=== PATIENT | male | born 1960 | race African-American/Black ===

== ENCOUNTER 2019-07-25 11:54 | Inpatient (IN) | payer MEDICARE, SELFPAY ==
[2019-07-25 11:55] VITALS: BP 117/67; PULSE 96; RESP 18; TEMP 36.4; O2SAT 98; BMI 28.3
--- NOTE | 2019-07-25 12:14 | EKG12_ITS ---
Test Reason : ABNL LABS Blood Pressure : / mmHG Vent. Rate : 087 BPM Atrial Rate : 087 BPM P-R Int : 140 ms QRS Dur : 084 ms QT Int : 348 ms P-R-T Axes : 058 064 050 degrees QTc Int : 418 ms Normal sinus rhythm Normal ECG Confirmed by BENEDICT JADE, OLIVER ([id number]), editor city CLAIRE BRANTLEY ([id number]) on 07/31/2019 1:08:14 PM Referred By: ANY Confirmed By:GABRIELLE MCMULLEN MD
--- NOTE | 2019-07-25 12:15 | ED.DCSUM_ITS ---
History of Present Illness Chief Complaint: Abn Labs Detail of Chief Complaint: Renal failure Informant: Patient, - - Staff from [facility] Narrative: Patient presents from [facility] secondary to renal failure. Labs yesterday showed BUN of 53 and a creatinine of 3.4. The last prior labs for this were from several years ago. Staff member with the patient does not know much about his history. She does state that he has been more fatigued recently. She has stated that he has had diarrhea for the last for 5 days. Patient denies pain or nausea. Past Medical History - Allergies and Home Meds Allergies/Adverse Reactions: Allergies No Known Allergies Allergy (Verified 07/25/19 11:55) Primary Care Physician: Bernard Hankins MD [Primary Care Provider] - Past Medical History: - - Pretension, COPD, diabetes, hypothyroid, anxiety, depression, schizophrenia Lives: [facility] Smoking Status: Current every day smoker Review of Systems General: Denies: Chills, Fever ENT: Denies: Sore throat Cardiovascular: Denies: Chest pain Respiratory: Denies: Dyspnea, Cough Gastrointestinal: Reports: Diarrhea. Denies: Abdominal pain, Vomiting Musculoskeletal: Denies: Extremity Pain Neurological: Reports: Weakness - Generalized weakness. Denies: Headache Allergy: Denies: Uticaria Physical Exam Vital Signs/Narrative: Vital Signs Temp Pulse Resp BP Pulse Ox 07/25/19 11:55 97.6 F L 96 18 117/67 98 Inital Vital Signs reviewed: Yes General: Well nourished, Well developed ENT: Moist mucous membranes Cardiovascular: Regular rate, Regular rhythm Respiratory: No distress, CTA bilaterally Abdomen: Soft, Nontender, Hypoactive bowel sounds Skin: Normal color Neurological: Alert, - - Answers questions appropriately Psychological: Normal affect Diagnostic/Tx/Re-eval Laboratory Results 07/25/19 07/25/19 07/25/19 12:31 12:31 12:35 WBC 5.4 RBC 3.75 L Hgb 10.8 L Hct 33.9 L MCV 90.4 MCH 28.8 MCHC 31.9 L RDW Std Deviation 48.6 H RDW Coeff of Saman 14.6 Plt Count 264 MPV 11.0 Immature Gran % (Auto) 0.900 Neut % (Auto) 51.0 Lymph % (Auto) 32.8 [place] % (Auto) 9.3 Eos % (Auto) 5.4 H Baso % (Auto) 0.6 Absolute Neuts (auto) 2.8 Absolute Lymphs (auto) 1.77 Nucleated RBC % 0 Sodium 139 Potassium 4.8 Chloride 109 H Carbon Dioxide 25.0 Anion Gap 5 BUN 61 H Creatinine 3.01 H Estim Creat Clear Calc 26.95 Est GFR (MDRD) Af Amer 27 L Est GFR (MDRD) Non-Af 23 L BUN/Creatinine Ratio 20.3 H Glucose 122 H Calcium 8.5 Urine Color Yellow Urine Clarity Sl. Cloudy Urine pH 5.0 Ur Specific [place] 1.015 Urine Protein 15 H Urine Glucose (UA) Normal Urine Ketones 5 H Urine Occult Blood Negative Urine Nitrite Negative Urine Bilirubin Negative Urine Urobilinogen Normal Ur Leukocyte Esterase Negative Urine RBC 0 SEEN Urine WBC 0 SEEN Ur Squamous Epith Cells 0-5 SEEN Urine Bacteria RARE Hyaline Casts 10-25 SEEN Urine Mucus RARE - EKG Initial EKG Interpretation: Sinus Rhythm - Sinus 87 with no acute ischemia. Normal T waves. - Medical Decision Making Patient is given IV fluids here. Creatinine is slightly improved when compared to yesterday's labs. I spoke with the patient's primary care physician, Dr. Hankins. He does not believe they will be able to get the patient adequately hydrated and to see a digital archivist from the long term and asked the patient be admitted for this evaluation. I have spoken with the hospitalist. ED Disposition - Plan for ED Patient: Disposition: Home or Assisted Living Diagnosis: Acute renal failure Referrals: Bernard Hankins MD [Primary Care Provider] -
[2019-07-25] MEDS: 0.9% Normal Saline 1,000 ML 150 ML IV ×2 (12:28→22:10)
[2019-07-25 12:37] LABS: Absolute Lymphocyte Count 1.77 X10^3/uL (0.83-4.51); Absolute Neutrophil Count 2.8 X10^3/uL (2.0-7.7); Basophil# 0.03 X10^3/uL; Basophil% 0.6 % (0-1); Eosinophil# 0.29 X10^3/uL; Eosinophils% 5.4 % (0-5); Hematocrit 33.9 % (40-54); Hemoglobin 10.8 g/dL (13.0-16.5); Lymphocyte # 1.77 X10^3/ul (4.0); Lymphocyte % 32.8 % (19-41); Mean Corp Hgb Conc 31.9 g/dL (32-36); Mean Corpuscular Hgb 28.8 pg (27.0-32.0); Mean Corpuscular Volume 90.4 fL (80-94); Monocyte% 9.3 % (0-10); NRBC Flagged by Analyzer 0 % (0-5); Neutrophil # 2.76 X10^3/uL (2.7-7.7); Platelet Count 264 K/mm3 (150-450); RBC Distribution Width CV 14.6 % (11.6-14.6); RBC Distribution Width SD 48.6 fl (35.1-43.9); Red Blood Count 3.75 M/mm3 (4.6-6.2); White Blood Count 5.4 K/mm3 (4.4-11.0)
[2019-07-25 12:46] LABS: Red Blood Cells-Urine 0 SEEN /hpf (0-5); White Blood Cells 0 SEEN /hpf (0-5)
[2019-07-25 12:50] LABS: Color, Urine Yellow (Yellow); Glucose, Dipstick Normal (Normal); Ketone-Dipstick 5 mg/dl (Negative); Leukocyte Esterase-Dipstick Negative /ul (Negative); Nitrite-Dipstick Negative (Negative); Occult Blood-Urine Negative /ul (Negative); Protein-Dipstick 15 mg/dl (Negative); Specific Gravity, Urine 1.015 (1.002-1.030); Urine Bilirubin Dipstick Negative (Negative); Urine Clarity Sl. Cloudy (Clear); Urine Urobilinogen Normal (Normal)
[2019-07-25 12:50] LABS: Anion Gap 5 (5-15); BUN 61 mg/dL (7-18); BUN/Creat Ratio 20.3 RATIO (10-20); Calcium,Total 8.5 mg/dL (8.5-10.1); Chloride 109 mmol/L (98-107); Creatinine, Serum 3.01 mg/dL (0.70-1.30); EST Glomerular Filtration Rate 23 mL/min (>60); Est Glom Filt Rate - Afr Amer 27 mL/min (>60); Estimated Creatinine Clearance 26.95 ml/min; Glucose 122 mg/dL (74-106); Potassium 4.8 mmol/L (3.5-5.1); Sodium Level 139 mmol/L (136-145)
[2019-07-25 13:06] LABS: Bacteria RARE /hpf (None Seen); Hyaline Cast 10-25 SEEN /lpf (0-5); Mucous, Urine RARE /hpf (<or=2+); Squamous Epithelial Cells - UA 0-5 SEEN /hpf (0-5)
[2019-07-25 13:54] VITALS: BP 115/66; PULSE 79; RESP 13; O2SAT 97
[2019-07-25 14:18] VITALS: BP 108/64; PULSE 78; RESP 15; O2SAT 97
--- NOTE | 2019-07-25 14:21 | NURSING ---
MED SURG OBS RENAL FAILURE TIERRA
--- NOTE | 2019-07-25 15:08 | US_ITS ---
STUDY: RENAL ULTRASOUND - COMPLETE REASON FOR EXAM: Male, 58 years old. Renal failure TECHNIQUE: Ultrasound evaluation of the kidneys was performed with real-time and static leiva-scale imaging. COMPARISON: None available. FINDINGS: The study is limited by poor sonographic windows. RIGHT KIDNEY: Normal location of the right kidney, which is normal in size. The right kidney measures 11.4 cm. There is a normal cortex of the right kidney. There is no right renal mass or cyst. There are no right renal calculi. There is no right hydronephrosis. DISTAL RIGHT URETER: There is non-visualization of the distal right ureter. There is no demonstrated right ureterovesical junction calculus. There is no demonstrated right ureteral jet. LEFT KIDNEY: Normal location of the left kidney, which is normal in size. The left kidney measures 12.3 cm. There is a normal cortex of the left kidney. There is no left renal mass or cyst. There are no left renal calculi. There is no left hydronephrosis. DISTAL LEFT URETER: There is non-visualization of the distal left ureter. There is no demonstrated left ureterovesical junction calculus. There is no demonstrated left ureteral jet. BLADDER: The urinary bladder is partially distended and appears unremarkable. US/Kidney and Bladder IMPRESSION: Normal ultrasound of the kidneys and urinary bladder. Electronically Signed: Tomasz Grider, at 17:29 EST Tel , Service support ,
--- NOTE | 2019-07-25 15:27 | PCM.HP.STD ---
Problem List (1) Acute renal failure Status: Acute History of Present Illness Date of Admission: 07/25/19 Chief Complaint: Renal failure. The patient is a 58 year old M who presents emergency room from [facility] facility/SNF due to abnormal renal function on labs. Patient is pleasant during assessment however unable to provide any past medical history. He does report recent diarrhea. Denies abdominal pain, nausea or vomiting. Denies other complaints. Per medication list, patient appears to have a past medical history of hypertension, hyperlipidemia, iron deficiency anemia, hypothyroidism, type 2 diabetes mellitus. He is on multiple psychiatric medications for schizophrenia. Past Medical History Allergies No Known Allergies Allergy (Verified 07/25/19 11:55) Home Medications: Ambulatory Orders Medication Instructions Recorded Amlodipine [Norvasc] 2.5 mg PO DAILY 07/25/19 Amlodipine [Norvasc] 5 mg PO DAILY 07/25/19 Aripiprazole [Abilify] 5 mg PO DAILY 07/25/19 Aripiprazole [Abilify] 20 mg PO DAILY 07/25/19 Aspirin E.C. [Ecotrin] 81 mg PO DAILY@0800 07/25/19 Atorvastatin Calcium 80 mg PO DAILY 07/25/19 Cholecalciferol (Vitamin D3) 2,000 unit PO DAILY 07/25/19 [Vitamin D3] Divalproex Sodium [Depakote ER] 2,000 mg PO DAILY 07/25/19 Divalproex Sodium [Depakote] 250 mg PO BID 07/25/19 Ferrous Sulfate 325 mg PO DAILY 07/25/19 Furosemide [Lasix] 40 mg PO DAILY 07/25/19 Haloperidol 5 mg PO Q6H PRN PRN 07/25/19 Haloperidol 5 mg PO TID 07/25/19 Insulin Glargine,Hum.rec.anlog 24 unit SQ QHS 07/25/19 [Lantus] Insulin Lispro [Humalog] 16 unit SQ TID 07/25/19 Levothyroxine [Synthroid] 50 mcg PO DAILY 07/25/19 Linagliptin [Tradjenta] 5 mg PO DAILY 07/25/19 Lisinopril 20 mg PO BID 07/25/19 Loperamide HCl [Imodium A-D] 4 mg PO DAILY PRN PRN 07/25/19 Lorazepam [Ativan] 1 mg PO BID 07/25/19 Lorazepam [Ativan] 1 mg PO Q6H PRN PRN 07/25/19 Medroxyprogesterone Acetate 10 mg PO BID 07/25/19 [Provera] Metformin HCl 1,000 mg PO BID 07/25/19 Metoprolol Tartrate 50 mg PO BID 07/25/19 Ziprasidone HCl [Geodon] 20 mg PO BID 07/25/19 traZODone [Desyrel] 100 mg PO QHS 07/25/19 Surgical History: - - Patient denies surgical history Psychiatric History: Schizophrenia Lives: Intermediate Smoking Status: Current every day smoker Alcohol: None Drugs: None - *Family History Maternal History Items: - - Patient denies known paternal medical history including cardiac history. Paternal History Items: - - Patient denies known paternal medical history including cardiac history. Review of Systems Constitutional: Denies: Chills, Fever, Weight Change HEENT: Denies: Head Aches, Sinus Congestion, Sinus Drainage Cardiovascular: Denies: Chest Pain, Palpitations Respiratory: Denies: Cough, Shortness of breath at rest, Sputum production Gastrointestinal: Denies: Abdominal Pain, Nausea, Vomiting Genitourinary: Denies: Dysuria Musculoskeletal: Denies: Joint Pain, Joint Tenderness Skin: Denies: Rash, Wounds Neurological: Denies: Numbness, Tingling, Focal weakness Psychiatric: Denies: Anxiety, Depression, Homicidal Ideations, Suicidal Ideations Hematologic/ Lymphatic: Denies: Easy Bruising, Easy Bleeding Unable to obtain accurate/complete ROS d/t: ROS difficult to obtain due to underlying mental illness, denies current sx VTE Information - Inpt Only VTE Present on Admission: No VTE Mechan Device Prophylaxis: None VTE Pharm Prophylaxis ordered?: Yes Patient Problems: Active and Suspected Problems Acute renal failure (Acute) - Physical Exam Vitals/I&O's: Vital Signs Temp Pulse Resp BP Pulse Ox 97.6 F L 78 15 108/64 97 07/25/19 11:55 07/25/19 14:18 07/25/19 14:18 07/25/19 14:18 07/25/19 14:18 Oxygen Delivery Method Room Air Weight: 197 lb 8.547 oz Body Mass Index (BMI) 28.3 Finger Stick Blood Glucose 99 General: Alert, Cooperative, No apparent distress HEENT: Atraumatic, PERRLA, EOMI, Normocephalic Oral: Dry Mucosa Neck: Supple, No JVD, Negative Carotid Bruits Lungs: Clear to auscultation, Normal air movement Cardiovascular: Regular rate, Regular Rhythm, Normal S1, Normal S2, No murmurs Abdomen: Bowel Sounds Present, Soft, Non Tender, Non-Distended Extremities: No clubbing, No cyanosis, No edema, Capillary Refill Less than 3 Seconds Skin: No rashes, No breakdown Musculoskeletal: No Tenderness to Palpation of Joints or Extremities Neurological: Cranial nerves II-XII grossly intact, Neuro grossly intact Psych/Mental Status: Normal Affect, Appropriate Laboratory Results 07/25/19 12:31: WBC 5.4, RBC 3.75 L, Hgb 10.8 L, Hct 33.9 L, MCV 90.4, MCH 28.8, MCHC 31.9 L, RDW Std Deviation 48.6 H, RDW Coeff of Saman 14.6, Plt Count 264, MPV 11.0, Immature Gran % (Auto) 0.900, Neut % (Auto) 51.0, Lymph % (Auto) 32.8, Gem % (Auto) 9.3, Eos % (Auto) 5.4 H, Baso % (Auto) 0.6, Absolute Neuts (auto) 2.8, Absolute Lymphs (auto) 1.77, Nucleated RBC % 0 07/25/19 12:31: Sodium 139, Potassium 4.8, Chloride 109 H, Carbon Dioxide 25.0, Anion Gap 5, BUN 61 H, Creatinine 3.01 H, Estim Creat Clear Calc 26.95, Est GFR (MDRD) Af Amer 27 L, Est GFR (MDRD) Non-Af 23 L, BUN/Creatinine Ratio 20.3 H, Glucose 122 H, Calcium 8.5 07/25/19 12:35: Urine Color Yellow, Urine Clarity Sl. Cloudy, Urine pH 5.0, Ur Specific [place] 1.015, Urine Protein 15 H, Urine Glucose (UA) Normal, Urine Ketones 5 H, Urine Occult Blood Negative, Urine Nitrite Negative, Urine Bilirubin Negative, Urine Urobilinogen Normal, Ur Leukocyte Esterase Negative, Urine RBC 0 SEEN, Urine WBC 0 SEEN, Ur Squamous Epith Cells 0-5 SEEN, Urine Bacteria RARE, Hyaline Casts 10-25 SEEN, Urine Mucus RARE Current Medications Amlodipine Besylate (Norvasc) 2.5 mg PO DAILY [facility] Amlodipine Besylate (Norvasc) 5 mg PO DAILY [facility] Aripiprazole (Abilify) 5 mg PO DAILY [facility] Aspirin (Ecotrin) 81 mg PO DAILY@0800 [facility] Atorvastatin Calcium (Lipitor) 80 mg PO DAILY [facility] Dextrose (D50w Syringe) 0 gm IV X1 PRN; Protocol PRN Reason: Hypoglycemia Divalproex Sodium (Depakote) 250 mg PO BID [facility] Divalproex Sodium (Depakote Er) 2,000 mg PO DAILY [facility] Ferrous Sulfate (Ferrous Sulfate) 325 mg PO DAILY [facility] Glucagon () 1 mg IM .X1 PRN PRN Reason: Hypoglycemia Haloperidol (Haldol) 5 mg PO Q6H PRN PRN PRN Reason: AGITATION Haloperidol (Haldol) 5 mg PO TID [facility] Heparin Sodium (Porcine) (Heparin Na) 5,000 unit SC Q12 [facility] Sodium Chloride () 1,000 mls @ 150 mls/hr IV .Q6H40M [facility] Last Admin: 07/25/19 12:28 Dose: 150 mls/hr Documented by: Sodium Chloride () 1,000 mls @ 150 mls/hr IV .Q6H40M [facility] Sodium Chloride () 250 mls @ 15 mls/hr IV .[id number] PRN PRN Reason: Saline Flush Insulin Human Lispro (Humalog Kwikpen (Bkc)) 0 unit SC Q6 [facility]; Protocol Levothyroxine Sodium (Synthroid) 50 mcg PO DAILY [facility] Lorazepam (Ativan) 1 mg PO BID [facility] Lorazepam (Ativan) 1 mg PO Q6H PRN PRN PRN Reason: AGITATION Metoprolol Tartrate (Lopressor (Beta Suzy)) 50 mg PO BID [facility] Non-Formulary Medication (Aripiprazole) 20 mg PO DAILY [facility] Non-Formulary Medication (Medroxyprogesterone Acetate [Provera]) 10 mg PO BID [facility] Sodium Chloride () 10 - 40 ml IV UD PRN PRN Reason: SALINE FLUSH Trazodone HCl (Desyrel) 100 mg PO QHS [facility] Ziprasidone (Geodon) 20 mg PO BID [facility] Assessment/Plan All Active Problems Acute renal failure (Acute) 1. Acute kidney injury due to dehydration from recent diarrhea versus worsening renal disease-unknown baseline. Creatinine from 2013 ., otherwise no lab history. Creatinine admission 3.0. Urinalysis unremarkable. IV fluids, trend BMP. Obtain renal ultrasound. If BMP not improved following hydration, check urine sodium and urine creatinine. If patient has further diarrhea during admission, send stool for C. difficile and enteric bacteriology. 2. Hypertension-stable, continue metoprolol regimen. Hold lisinopril and Lasix. 3. Hyperlipidemia-continue statin regimen. 4. Iron deficiency anemia-stable, trend CBC. 5. Hypothyroidism-continue Synthroid regimen. 6. Type 2 diabetes [id number] ACHS with sliding scale insulin. 7. Schizophrenia-resides at mental health facility/SNF. Resume home medication regimen including Abilify, Depakote, Haldol, Ativan, trazodone, Geodon. DVT prophylaxis- heparin sc This patient was seen by Bonita Cazares NP-Peter under the supervision of Dr. Mon.
[2019-07-25 15:30] VITALS: BMI 20.3
[2019-07-25 15:32] VITALS: BMI 20.4
[2019-07-25 16:00] VITALS: BP 136/70; PULSE 97; RESP 18; TEMP 37; O2SAT 98
[2019-07-25 18:16] LABS: Bedside Glucose 159 mg/dL (70-110)
[2019-07-25] MEDS: Insulin Lispro 100 UNIT/ML INSULN.PEN SC (18:16)
[2019-07-25] MEDS: LORazepam 1 MG Tablet PO ×2 (18:16→21:51)
[2019-07-25] MEDS: Divalproex Sodium 250 MG Tablet PO (18:16)
[2019-07-25] MEDS: Glucerna Shake 120 ML LIQUID PO ×2 (18:16→21:58)
[2019-07-25 21:22] VITALS: BP 141/70; PULSE 95; RESP 16; TEMP 37.1; O2SAT 97
[2019-07-25 21:50] VITALS: PULSE 95
[2019-07-25] MEDS: Ziprasidone HCl 20 MG Capsule PO (21:50)
[2019-07-25] MEDS: Atorvastatin Calcium 80 MG Tablet PO (21:50)
[2019-07-25] MEDS: Metoprolol Tartrate 50 MG Tablet PO (21:50)
[2019-07-25] MEDS: Heparin Injection (Vial) 5,000 UNIT/ML VIAL 5000 UNIT SC (21:51)
[2019-07-25] MEDS: Haloperidol 5 MG Tablet PO (21:51)
[2019-07-25] MEDS: traZODone 100 MG Tablet PO (21:51)
[2019-07-26] VITALS (7 sets, daily range): BP systolic 138–158; BP diastolic 74–90; PULSE 65–89; RESP 15–17; TEMP 36.7–37.1; O2SAT 97–100
[2019-07-26] MEDS: Insulin Lispro 100 UNIT/ML INSULN.PEN SC ×3 (00:13→17:04)
[2019-07-26] MEDS: 0.9% Normal Saline 1,000 ML 150 ML IV ×3 (04:40→20:18)
[2019-07-26 05:57] LABS: Anion Gap 4 (5-15); BUN 49 mg/dL (7-18); BUN/Creat Ratio 27.8 RATIO (10-20); Chloride 114 mmol/L (98-107); Creatinine, Serum 1.76 mg/dL (0.70-1.30); EST Glomerular Filtration Rate 42 mL/min (>60); Est Glom Filt Rate - Afr Amer 51 mL/min (>60); Estimated Creatinine Clearance 40.72 ml/min; Glucose 98 mg/dL (74-106); Potassium 4.6 mmol/L (3.5-5.1); Sodium Level 143 mmol/L (136-145)
[2019-07-26] MEDS: Levothyroxine 50 MCG Tablet PO (06:12)
[2019-07-26] MEDS: Haloperidol 5 MG Tablet PO ×3 (06:12→22:41)
[2019-07-26 06:16] LABS: Bedside Glucose 92 mg/dL (70-110)
[2019-07-26] MEDS: amLODIPine 2.5 MG Tablet 7.5 MG PO (08:35)
[2019-07-26] MEDS: Ziprasidone HCl 20 MG Capsule PO ×2 (08:35→22:41)
[2019-07-26] MEDS: Divalproex Sodium 250 MG Tablet PO ×2 (08:35→17:04)
[2019-07-26] MEDS: Divalproex (ER) 500 MG Tablet 2000 MG PO (08:36)
[2019-07-26] MEDS: ARIPiprazole 10 MG Tablet 20 MG PO (08:36)
[2019-07-26] MEDS: Metoprolol Tartrate 50 MG Tablet PO ×2 (08:37→22:41)
[2019-07-26] MEDS: ARIPiprazole 5 MG Tablet PO (08:37)
[2019-07-26] MEDS: Aspirin E.C. 81 MG Tablet PO (08:37)
[2019-07-26] MEDS: Ferrous Sulfate 325 MG Tablet PO (08:37)
--- NOTE | 2019-07-26 09:35 | PN_ITS ---
Patient Problems: Active and Suspected Problems Acute renal failure (Acute) Subjective: Very pleasant, no issues overnight. He still on his antipsychotic medication for his history of schizophrenia and he still unable to provide any type of history. It appears that he did have diarrhea at his [facility] institution, that seems to have resolved. Vitals/I&O's: Vital Signs Temp Pulse Resp BP Pulse Ox 98.0 F 87 17 138/90 H 97 07/26/19 09:15 07/26/19 09:15 07/26/19 09:15 07/26/19 09:15 07/26/19 09:15 Oxygen Delivery Method Room Air Weight: 142 lb 3.17 oz Body Mass Index (BMI) 20.3 Finger Stick Blood Glucose 99 Intake and Output for Last 24 Hours 07/24/19 07/25/19 07/26/19 23:59 23:59 23:59 Intake Total 1230 / 1530 2285 / 2285 Output Total 550 / 550 Balance 1230 / 1530 1735 / 1735 General: Alert, Cooperative, No apparent distress HEENT: Atraumatic, PERRLA, EOMI, Normocephalic Oral: Moist Mucosa Neck: Supple, No JVD Lungs: Clear to auscultation, Normal air movement, No rhonchi, No wheeze, No rales, Diminished Cardiovascular: Regular rate, Regular Rhythm, Normal S1, Normal S2, No murmurs Abdomen: Soft, Non Tender, Non-Distended, No Hepato-splenomegaly Extremities: No edema, Capillary Refill Less than 3 Seconds Skin: No rashes, No breakdown Neurological: Neuro grossly intact, Sensory exam intact to light touch and pain Psych/Mental Status: Normal Affect, Appropriate Laboratory Results 07/25/19 12:31: WBC 5.4, RBC 3.75 L, Hgb 10.8 L, Hct 33.9 L, MCV 90.4, MCH 28.8, MCHC 31.9 L, RDW Std Deviation 48.6 H, RDW Coeff of Saman 14.6, Plt Count 264, MPV 11.0, Immature Gran % (Auto) 0.900, Neut % (Auto) 51.0, Lymph % (Auto) 32.8, [place] % (Auto) 9.3, Eos % (Auto) 5.4 H, Baso % (Auto) 0.6, Absolute Neuts (auto) 2.8, Absolute Lymphs (auto) 1.77, Nucleated RBC % 0 07/25/19 12:31: Sodium 139, Potassium 4.8, Chloride 109 H, Carbon Dioxide 25.0, Anion Gap 5, BUN 61 H, Creatinine 3.01 H, Estim Creat Clear Calc 26.95, Est GFR (MDRD) Af Amer 27 L, Est GFR (MDRD) Non-Af 23 L, BUN/Creatinine Ratio 20.3 H, Glucose 122 H, Calcium 8.5 07/25/19 12:35: Urine Color Yellow, Urine Clarity Sl. Cloudy, Urine pH 5.0, Ur Specific [place] 1.015, Urine Protein 15 H, Urine Glucose (UA) Normal, Urine Ketones 5 H, Urine Occult Blood Negative, Urine Nitrite Negative, Urine Bilirubin Negative, Urine Urobilinogen Normal, Ur Leukocyte Esterase Negative, Urine RBC 0 SEEN, Urine WBC 0 SEEN, Ur Squamous Epith Cells 0-5 SEEN, Urine Bacteria RARE, Hyaline Casts 10-25 SEEN, Urine Mucus RARE 07/25/19 18:11: POC Glucose 159 H 07/26/19 05:20: Sodium 143, Potassium 4.6, Chloride 114 H, Carbon Dioxide 25.0, Anion Gap 4 L, BUN 49 H, Creatinine 1.76 H, Estim Creat Clear Calc 40.72, Est GFR (MDRD) Af Amer 51 L, Est GFR (MDRD) Non-Af 42 L, BUN/Creatinine Ratio 27.8 H , Glucose 98, Calcium 8.0 L 07/26/19 06:05: POC Glucose 92 Current Medications Amlodipine Besylate (Norvasc) 7.5 mg PO DAILY [facility] Last Admin: 07/26/19 08:35 Dose: 7.5 mg Documented by: Aripiprazole (Abilify) 5 mg PO DAILY [facility] Last Admin: 07/26/19 08:37 Dose: 5 mg Documented by: Aripiprazole (Abilify) 20 mg PO DAILY [facility] Last Admin: 07/26/19 08:36 Dose: 20 mg Documented by: Aspirin (Ecotrin) 81 mg PO DAILY@0800 [facility] Last Admin: 07/26/19 08:37 Dose: 81 mg Documented by: Atorvastatin Calcium (Lipitor) 80 mg PO QHS [facility] Last Admin: 07/25/19 21:50 Dose: 80 mg Documented by: Dextrose (D50w Syringe) 0 gm IV X1 PRN; Protocol PRN Reason: Hypoglycemia [facility] Admin: 07/26/19 08:35 Dose: 250 mg Documented by: Divalproex Sodium (Depakote Er) [facility] Last Admin: 07/26/19 08:36 Dose: 2,000 mg Documented by: Ferrous Sulfate (Ferrous Sulfate) [facility] Last Admin: 07/26/19 08:37 Dose: 325 mg Documented by: Glucagon () 1 mg IM .X1 PRN PRN Reason: Hypoglycemia Haloperidol (Haldol) 5 mg PO Q6H PRN PRN PRN Reason: AGITATION Haloperidol (Haldol) 5 mg PO TID [facility] Last Admin: 07/26/19 06:12 Dose: 5 mg Documented by: Heparin Sodium (Porcine) (Heparin Na) 5,000 unit SC Q12 [facility] Last Admin: 07/25/19 21:51 Dose: 5,000 unit Documented by: Sodium Chloride () 1,000 mls @ 150 mls/hr IV .Q6H40M [facility] Last Admin: 07/26/19 08:38 Dose: Not Given Documented by: Sodium Chloride () 250 mls @ 15 mls/hr IV .[id number] PRN PRN Reason: Saline Flush Insulin Human Lispro (Humalog Kwikpen (Bkc)) 0 unit SC Q6 [facility]; Protocol Last Admin: 07/26/19 06:07 Dose: Not Given Documented by: Levothyroxine Sodium (Synthroid) 50 mcg PO DAILY@0600 [facility] Last Admin: 07/26/19 06:12 Dose: 50 mcg Documented by: Lorazepam (Ativan) 1 mg PO BID [facility] Last Admin: 07/25/19 21:51 Dose: 1 mg Documented by: Lorazepam (Ativan) 1 mg PO Q6H PRN PRN PRN Reason: AGITATION Last Admin: 07/25/19 18:16 Dose: 1 mg Documented by: Metoprolol Tartrate (Lopressor (Beta Suzy)) 50 mg PO BID [facility] Last Admin: 07/26/19 08:37 Dose: 50 mg Documented by: Nutritional Formula (Lactose Free) (Glucerna Shake) 120 ml PO 4X/DAY [facility] Last Admin: 07/25/19 21:58 Dose: 120 ml Documented by: Sodium Chloride () 10 - 40 ml IV UD PRN PRN Reason: SALINE FLUSH Trazodone HCl (Desyrel) 100 mg PO QHS [facility] Last Admin: 07/25/19 21:51 Dose: 100 mg Documented by: Ziprasidone (Geodon) 20 mg PO BID [facility] Last Admin: 07/26/19 08:35 Dose: 20 mg Documented by: STROKE Vital Signs/Narrative: Vital Signs Temp Pulse Resp BP Pulse Ox 07/26/19 09:15 98.0 F 87 17 138/90 H 97 07/26/19 08:37 89 158/81 H Medical Necessity - Tobacco Use Smoking Status: Current every day smoker Assessment/Plan All Active Problems Acute renal failure (Acute) 1. Acute renal failure -Secondary to dehydration from diarrhea in combination with lisinopril and Lasix -First with his baseline creatinine is, however on admission his creatinine was 3.01, and now it is 1.76 -He with IV fluid hydration for 1 more day and reevaluate tomorrow, if his creatinine is closer to 1 can plan for discharge tomorrow 2. HTN/HLD -Blood pressures are stable -We will continue to hold his lisinopril and Lasix, but can continue with his metoprolol -Continue with statin and aspirin 3. Hypothyroidism -Stable -Continue with Synthroid 4. DM 2 -Accu-Cheks AC at bedtime and continue with sliding scale insulin -His intake improves, can restart his home insulin regimen of Lantus and conrad ltime insulin 5. Iron deficiency anemia -We will recheck a CBC in the morning, his hemoglobin on admission was 10.8 -I anticipate that it will be lower given his fluid resuscitation but he does not have any signs of bleeding currently -Continue with his iron replacement 6. Schizophrenia -Appears to be stable at the moment -Tinea with his home medications DVT: Heparin Code Visit Inpatient E&M: 32277 Subs Hosp L2
--- NOTE | 2019-07-26 10:08 | CASEMGMT ---
Social Work Note Pt is listed as being from [facility]. Documents from [facility] states pt's guardian is pt's brother Umang Chung. IMAN placed a call to Umang. Umang confirms that pt is from [facility] and the plan is for pt to return at discharge. IMAN informed Umang that this worker will update him when pt gets discharged. Umang states understanding. IMAN placed a call to [facility]. Pt is custodial resident and is able to return once medically cleared. IMAN faxed updated clinicals to [facility]. Plan: Return to [facility] when medically cleared Harini Guardado TELEVISION EQUIPMENT OPERATOR, AUDITOR
[2019-07-26] MEDS: LORazepam 1 MG Tablet PO ×2 (10:36→22:40)
[2019-07-26] MEDS: Glucerna Shake 120 ML LIQUID PO ×4 (10:36→22:44)
[2019-07-26] MEDS: Heparin Injection (Vial) 5,000 UNIT/ML VIAL 5000 UNIT SC ×2 (10:37→22:41)
[2019-07-26 13:15] LABS: Bedside Glucose 291 mg/dL (70-110)
[2019-07-26] MEDS: Atorvastatin Calcium 80 MG Tablet PO (22:40)
[2019-07-26] MEDS: traZODone 100 MG Tablet PO (22:41)
[2019-07-27 00:26] LABS: Bedside Glucose 216 mg/dL (70-110)
[2019-07-27] MEDS: Insulin Lispro 100 UNIT/ML INSULN.PEN SC (00:40)
[2019-07-27 00:46] LABS: Bedside Glucose 246 mg/dL (70-110)
[2019-07-27] MEDS: 0.9% Normal Saline 1,000 ML 150 ML IV (02:54)
[2019-07-27 03:25] VITALS: BP 159/89; PULSE 72; RESP 16; TEMP 36.8; O2SAT 98
[2019-07-27] MEDS: Haloperidol 5 MG Tablet PO (06:13)
[2019-07-27] MEDS: Levothyroxine 50 MCG Tablet PO (06:13)
[2019-07-27 06:24] LABS: Anion Gap 5 (5-15); BUN 27 mg/dL (7-18); BUN/Creat Ratio 21.8 RATIO (10-20); Calcium,Total 7.8 mg/dL (8.5-10.1); Chloride 114 mmol/L (98-107); Creatinine, Serum 1.24 mg/dL (0.70-1.30); EST Glomerular Filtration Rate 63 mL/min (>60); Est Glom Filt Rate - Afr Amer 76 mL/min (>60); Glucose 150 mg/dL (74-106); Potassium 4.7 mmol/L (3.5-5.1); Sodium Level 143 mmol/L (136-145)
[2019-07-27 07:00] LABS: Bedside Glucose 144 mg/dL (70-110)
[2019-07-27 07:10] LABS: Bedside Glucose 212 mg/dL (70-110)
[2019-07-27 07:10] LABS: Bedside Glucose 208 mg/dL (70-110)
[2019-07-27 07:15] LABS: Bedside Glucose 443 mg/dL (70-110)
[2019-07-27 07:15] LABS: Bedside Glucose 496 mg/dL (70-110)
[2019-07-27] MEDS: Divalproex Sodium 250 MG Tablet PO (08:35)
[2019-07-27] MEDS: Divalproex (ER) 500 MG Tablet 2000 MG PO (08:35)
[2019-07-27] MEDS: Ferrous Sulfate 325 MG Tablet PO (08:36)
[2019-07-27] MEDS: Aspirin E.C. 81 MG Tablet PO (08:36)
[2019-07-27] MEDS: ARIPiprazole 5 MG Tablet PO (08:36)
[2019-07-27] MEDS: ARIPiprazole 10 MG Tablet 20 MG PO (08:36)
[2019-07-27] MEDS: Ziprasidone HCl 20 MG Capsule PO (08:37)
--- NOTE | 2019-07-27 09:21 | CASEMGMT ---
Social Work Note [place] [facility] [place] JENNIFER Cottrell. Ronit states pt does NOT have to be sitter free for 24 hours and can return when medically cleared. [place] [facility] Harini Guardado SIEVE GRADER TENDER, MACHINE INSTALLER
--- NOTE | 2019-07-27 09:28 | PCM.TXEXTCAR ---
- Diet 07/25/19 15:09 Diet: Calorie Controlled Food consistency:: Soft Liquid Consistency:: Regular/Thin Diet Comments: staff supervision, NO STRAWS, small bites/sips, slow rate of intake How many daily calories?: 1800 calorie - Routine Orders/Code Status Routine Lab Work: [facility] - 07/30/19 - Allergies/Procedures Done in Hospital Allergies/Adverse Reactions: Allergies No Known Allergies Allergy (Verified 07/25/19 11:55) - Type of Care/Length of Stay Estimated LOS: More Than 30 Days Type of Care Needed: Intermediate Rehab Potential: Fair Prognosis: Fair - Additional Orders/Day of Discharge Day of Discharge: 07/27/19 - Dietary and Speech Recommendations Dietitian Recommendations/Changes: Recommend change diet to 2000 Calorie Controlled Diet. Continue Glucerna with Medpass. - Follow Up Care Primary Care Physician: Bernard Hankins MD [Primary Care Provider] - Please follow up with your Primary Care Physician in: 3-5 days
[2019-07-27 09:34] VITALS: BP 170/93; PULSE 90; RESP 18; TEMP 36.9; O2SAT 100
[2019-07-27] MEDS: Glucerna Shake 120 ML LIQUID PO (09:40)
[2019-07-27 09:41] VITALS: PULSE 90
[2019-07-27] MEDS: Metoprolol Tartrate 50 MG Tablet PO (09:41)
[2019-07-27] MEDS: LORazepam 1 MG Tablet PO (09:41)
[2019-07-27] MEDS: amLODIPine 2.5 MG Tablet 7.5 MG PO (09:41)
[2019-07-27] MEDS: Heparin Injection (Vial) 5,000 UNIT/ML VIAL 5000 UNIT SC (09:42)
--- NOTE | 2019-07-27 10:23 | CASEMGMT ---
Social Work Note Pt is discharging back to [facility] today. IMAN faxed completed discharge paperwork to [facility] including transfer to extended care facility, signed medication list and any scripts. Original in SNF folder and copy on pt's chart. IMAN called [facility] and arranged transportation via cot for 11:00am. Transportation form complete and placed on SNF folder and copy on pt's chart. IMAN updated RN on transportation time. IMAN placed a call to [facility] and spoke with RN Ronit and updated her on discharge and transportation time. IMAN placed a call to pt's guardian and brother Umang and updated him that pt will be discharged today and transportation time. Plan: Return to [facility] today with [facility] transporting via cot at 11:00am Harini Guardado MSW, HOG STICKER
--- NOTE | 2019-07-27 10:24 | DS.PCM_ITS ---
Discharge Date and Diagnosis - Problem List Patient Problems: Active and Suspected Problems Acute renal failure (Acute) Date of Admission: 07/25/19 Date of Discharge: 07/27/19 - Primary Discharge Diagnosis Active and Suspected Problems Acute renal failure (Acute) Hospital Course and Treatment Imaging Results: Renal US: IMPRESSION: Normal ultrasound of the kidneys and urinary bladder. Consults: None Operations: None Procedures: None Summary of Care Provided: Per HPI: The patient is a 58 year old M who presents emergency room from [facility] facility/SNF due to abnormal renal function on labs. Patient is pleasant during assessment however unable to provide any past medical history. He does report recent diarrhea. Denies abdominal pain, nausea or vomiting. Denies other complaints. Per medication list, patient appears to have a past medical history of hypertension, hyperlipidemia, iron deficiency anemia, hypothyroidism, type 2 diabetes mellitus. He is on multiple psychiatric medications for schizophrenia. Hospital Course: 1. Acute renal failure secondary to volume loss from [id number]-old male with schizophrenia who resides in a [facility] facility presented after he was found to have abnormal renal function in the setting of several days of diarrhea. Initially on presentation his creatinine was 3.01, and now he is 1.24 aggressive IV fluid hydration. I do recommend that he have a repeat BMP drawn on Tuesday and to not restart his Lasix or his lisinopril until his creatinine has been rechecked. Renal ultrasound was unremarkable and given the fact that his creatinine has improved with IV fluids he is okay for discharge back to the [facility] facility today. 2. HTN/HLD-blood pressures have been a little bit on the high side today prior to discharge. Likely secondary to holding both his lisinopril and Lasix, however given his renal failure recommended they continue to hold this until they have another BMP in a few days to evaluate his renal function. If his renal function is okay there should not be an issue with him restarting his Lasix and his lisinopril especially since he has not had diarrhea since he is been here 3. His other medical diagnoses were evaluated and his home medications were continued where appropriate Patient Problems: Active and Suspected Problems Acute renal failure (Acute) - Physical Exam Vitals/I&O's: Vital Signs Temp Pulse Resp BP Pulse Ox 98.4 F 90 18 170/93 H 100 07/27/19 09:34 07/27/19 09:41 07/27/19 09:34 07/27/19 09:34 07/27/19 09:34 Oxygen Delivery Method Room Air Weight: 142 lb 3.17 oz Body Mass Index (BMI) 20.3 Finger Stick Blood Glucose 99 Intake and Output for Last 24 Hours 07/25/19 07/26/19 07/27/19 23:59 23:59 23:59 Intake Total 1230 / 1530 5547.5 / 5547.5 2690 / 2690 Output Total 1550 / 1550 1700 / 1700 Balance 1230 / 1530 3997.5 / 3997.5 990 / 990 General: Alert, Cooperative, No apparent distress HEENT: Atraumatic, PERRLA, EOMI, Normocephalic Oral: Moist Mucosa Neck: Supple, No JVD Lungs: Clear to auscultation, Normal air movement, No rhonchi, No wheeze, No rales, Diminished Cardiovascular: Regular rate, Regular Rhythm, Normal S1, Normal S2, No murmurs Abdomen: Soft, Non Tender, Non-Distended, No Hepato-splenomegaly Extremities: No edema, Capillary Refill Less than 3 Seconds Skin: No rashes, No breakdown Neurological: Neuro grossly intact, Sensory exam intact to light touch and pain Psych/Mental Status: Normal Affect, Appropriate Laboratory Results 07/26/19 00:09: POC Glucose 212 H 07/26/19 00:11: POC Glucose 208 H 07/26/19 11:31: POC Glucose 291 H 07/26/19 16:52: POC Glucose 496 H* 07/26/19 16:54: POC Glucose 443 H 07/26/19 22:36: POC Glucose 216 H 07/27/19 00:39: POC Glucose 246 H 07/27/19 05:35: Sodium 143, Potassium 4.7, Chloride 114 H, Carbon Dioxide 24.0, Anion Gap 5, BUN 27 H, Creatinine 1.24, Estim Creat Clear Calc 57.80, Est GFR (MDRD) Af Amer 76, Est GFR (MDRD) Non-Af 63, BUN/Creatinine Ratio 21.8 H, Glucose 150 H, Calcium 7.8 L 07/27/19 06:10: POC Glucose 144 H Current Medications Amlodipine Besylate (Norvasc) 7.5 mg PO DAILY [facility] Last Admin: 07/27/19 09:41 Dose: 7.5 mg Documented by: Aripiprazole (Abilify) 5 mg PO DAILY [facility] Last Admin: 07/27/19 08:36 Dose: 5 mg Documented by: Aripiprazole (Abilify) 20 mg PO DAILY [facility] Last Admin: 07/27/19 08:36 Dose: 20 mg Documented by: Aspirin (Ecotrin) 81 mg PO DAILY@0800 [facility] Last Admin: 07/27/19 08:36 Dose: 81 mg Documented by: Atorvastatin Calcium (Lipitor) 80 mg PO QHS [facility] Last Admin: 07/26/19 22:40 Dose: 80 mg Documented by: Dextrose (D50w Syringe) 0 gm IV X1 PRN; Protocol PRN Reason: Hypoglycemia [facility]: 07/27/19 08:35 Dose: 250 mg Documented by: Divalproex Sodium (Depakote Er) [facility] Admin: 07/27/19 08:35 Dose: 2,000 mg Documented by: Ferrous Sulfate (Ferrous Sulfate) [facility] Last Admin: 07/27/19 08:36 Dose: 325 mg Documented by: Glucagon () 1 mg IM .X1 PRN PRN Reason: Hypoglycemia Haloperidol (Haldol) 5 mg PO Q6H PRN PRN PRN Reason: AGITATION Haloperidol (Haldol) 5 mg PO TID [facility] Last Admin: 07/27/19 06:13 Dose: 5 mg Documented by: Heparin Sodium (Porcine) (Heparin Na) 5,000 unit SC Q12 [facility] Last Admin: 07/27/19 09:42 Dose: 5,000 unit Documented by: Sodium Chloride () 1,000 mls @ 150 mls/hr IV .Q6H40M [facility] Last Infusion: 07/27/19 09:42 Dose: Infused Documented by: Sodium Chloride () 250 mls @ 15 mls/hr IV .[id number] PRN PRN Reason: Saline Flush Insulin Human Lispro (Humalog Kwikpen (Bkc)) 0 unit SC Q6 [facility]; Protocol Last Admin: 07/27/19 06:11 Dose: Not Given Documented by: Levothyroxine Sodium (Synthroid) 50 mcg PO DAILY@0600 [facility] Last Admin: 07/27/19 06:13 Dose: 50 mcg Documented by: Lorazepam (Ativan) 1 mg PO BID [facility] Last Admin: 07/27/19 09:41 Dose: 1 mg Documented by: Lorazepam (Ativan) 1 mg PO Q6H PRN PRN PRN Reason: AGITATION Last Admin: 07/25/19 18:16 Dose: 1 mg Documented by: Metoprolol Tartrate (Lopressor (Beta Suzy)) 50 mg PO BID [facility] Last Admin: 07/27/19 09:41 Dose: 50 mg Documented by: Nicotine (Nicoderm Cq (Pbkc)) 14 mg TRANSDERM. DAILY [facility] Last Admin: 07/27/19 09:41 Dose: 14 mg Documented by: Nutritional Formula (Lactose Free) (Glucerna Shake) 120 ml PO 4X/DAY [facility] Last Admin: 07/27/19 09:40 Dose: 120 ml Documented by: Sodium Chloride () 10 - 40 ml IV UD PRN PRN Reason: SALINE FLUSH Trazodone HCl (Desyrel) 100 mg PO QHS [facility] Last Admin: 07/26/19 22:41 Dose: 100 mg Documented by: Ziprasidone (Geodon) 20 mg PO BID [facility] Last Admin: 07/27/19 08:37 Dose: 20 mg Documented by: Home Medications: Medications to take at Discharge Amlodipine [Norvasc] 2.5 mg PO DAILY 07/25/19 Amlodipine [Norvasc] 5 mg PO DAILY 07/25/19 Aripiprazole [Abilify] 5 mg PO DAILY 07/25/19 Aripiprazole [Abilify] 20 mg PO DAILY 07/25/19 Aspirin E.C. [Ecotrin] 81 mg PO DAILY@0800 07/25/19 Atorvastatin Calcium 80 mg PO DAILY 07/25/19 Cholecalciferol (Vitamin D3) [Vitamin D3] 2,000 unit PO DAILY 07/25/19 Divalproex Sodium [Depakote ER] 2,000 mg PO DAILY 07/25/19 Divalproex Sodium [Depakote] 250 mg PO BID 07/25/19 Ferrous Sulfate 325 mg PO DAILY 07/25/19 Haloperidol 5 mg PO Q6H PRN PRN 07/25/19 Haloperidol 5 mg PO TID 07/25/19 Insulin Glargine,Hum.rec.anlog [Lantus] 24 unit SQ QHS 07/25/19 Insulin Lispro [Humalog] 16 unit SQ TID 07/25/19 Levothyroxine [Synthroid] 50 mcg PO DAILY 07/25/19 Linagliptin [Tradjenta] 5 mg PO DAILY 07/25/19 Loperamide HCl [Imodium A-D] 4 mg PO DAILY PRN PRN 07/25/19 Lorazepam [Ativan] 1 mg PO BID 07/25/19 Lorazepam [Ativan] 1 mg PO Q6H PRN PRN 07/25/19 Medroxyprogesterone Acetate [Provera] 10 mg PO BID 07/25/19 Metformin HCl 1,000 mg PO BID 07/25/19 Metoprolol Tartrate 50 mg PO BID 07/25/19 Ziprasidone HCl [Geodon] 20 mg PO BID 07/25/19 traZODone [Desyrel] 100 mg PO QHS 07/25/19 Furosemide [Lasix] 40 mg PO DAILY #0 07/27/19 Lisinopril 20 mg PO BID #0 07/27/19 Primary Care Physician: Bernard Hankins MD [Primary Care Provider] - Please follow up with your Primary Care Physician in: 3-5 days Disposition: Psych Hospital or Unit Minutes spent on discharge:: 35 Patient Condition:: Stable Medical Necessity - Tobacco Use Smoking Status: Current every day smoker Meaningful Use Info Meaningful Use Diagnoses (Choose all that apply): None applicable Code Visit Inpatient E&M: 49061 Disch Hosp
== END 2019-07-27 11:05 | disposition skilled nursing facility (03) | DRG 684 ==
LOC: ED 14:24 → MS3 19:00
PROVIDERS: Admitting Provider Internal Medicine; Emergency Provider Emergency Medicine; Family Provider Family Medicine; PCP Family Medicine; Visit Provider Family Medicine
DX: N17.9 Acute kidney failure, unspecified (principal); E86.0 Dehydration; R19.7 Diarrhea, unspecified; J44.9 Chronic obstructive pulmonary disease, unspecified; E11.9 Type 2 diabetes mellitus without complications; I10 Essential (primary) hypertension; E78.5 Hyperlipidemia, unspecified; E03.9 Hypothyroidism, unspecified; D50.9 Iron deficiency anemia, unspecified; F20.9 Schizophrenia, unspecified; F32.9 Major depressive disorder, single episode, unspecified; F41.9 Anxiety disorder, unspecified; F17.200 Nicotine dependence, unspecified, uncomplicated; Z79.84 Long term (current) use of oral hypoglycemic drugs; Z79.82 Long term (current) use of aspirin; Z79.4 Long term (current) use of insulin; Z79.899 Other long term (current) drug therapy
CPT/HCPCS: 36415; 76770; 80048; 81001; 82962; 85025; 92507; 92610; 93005; 97162; 97166; 99285; J7030

== ENCOUNTER → 2019-08-20 16:19 | Outpatient (CLI) | payer MEDICARE, SELFPAY ==
[2019-07-25 15:30] VITALS: BMI 20.3
[2019-08-20 17:14] LABS: Anion Gap 6 (5-15); BUN 35 mg/dL (7-18); BUN/Creat Ratio 17.1 RATIO (10-20); Calcium,Total 8.6 mg/dL (8.5-10.1); Chloride 105 mmol/L (98-107); Creatinine, Serum 2.05 mg/dL (0.70-1.30); EST Glomerular Filtration Rate 35 mL/min (>60); Est Glom Filt Rate - Afr Amer 43 mL/min (>60); Glucose 177 mg/dL (74-106); Potassium 4.9 mmol/L (3.5-5.1); Sodium Level 138 mmol/L (136-145)
[2019-08-20 17:15] LABS: Valproic Acid (Depakene) Level 65 ug/mL (50-100)
[2019-08-20 17:22] LABS: Absolute Lymphocyte Count 1.45 X10^3/uL (0.83-4.51); Absolute Neutrophil Count 2.2 X10^3/uL (2.0-7.7); Basophil# 0.02 X10^3/uL; Basophil% 0.5 % (0-1); Eosinophil# 0.15 X10^3/uL; Eosinophils% 3.5 % (0-5); Hematocrit 31.8 % (40-54); Hemoglobin 9.9 g/dL (13.0-16.5); Lymphocyte # 1.45 X10^3/ul (4.0); Mean Corp Hgb Conc 31.1 g/dL (32-36); Mean Corpuscular Hgb 29.4 pg (27.0-32.0); Mean Corpuscular Volume 94.4 fL (80-94); Mean Platelet Vol. 11.4 fl (6.2-12.0); Monocyte# 0.41 X10^3/uL; Monocyte% 9.6 % (0-10); NRBC Flagged by Analyzer 0 % (0-5); Neutrophil # 2.22 X10^3/uL (2.7-7.7); Neutrophil % 51.9 % (47-70); Platelet Count 338 K/mm3 (150-450); RBC Distribution Width CV 15.9 % (11.6-14.6); RBC Distribution Width SD 55.5 fl (35.1-43.9); Red Blood Count 3.37 M/mm3 (4.6-6.2); White Blood Count 4.3 K/mm3 (4.4-11.0)
== END ==
PROVIDERS: Family Provider Family Medicine; PCP Family Medicine; Referring Provider Family Medicine; Visit Provider Family Medicine
DX: Z00.01 Encounter for general adult medical examination with abnormal findings (principal); Z12.5 Encounter for screening for malignant neoplasm of prostate; E03.9 Hypothyroidism, unspecified; N17.9 Acute kidney failure, unspecified; Z79.899 Other long term (current) drug therapy
CPT/HCPCS: 80048; 80164; 82140; 85025

== ENCOUNTER 2019-09-09 23:17 | Emergency (ER) | payer MEDICARE, SELFPAY ==
[2019-09-09 23:19] VITALS: BP 134/69; PULSE 83; RESP 18; TEMP 37.1; O2SAT 98; BMI 28.0
[2019-09-09 23:31] LABS: Bedside Glucose 444 mg/dL (70-110)
[2019-09-10 00:18] VITALS: BP 182/117
[2019-09-10 01:01] LABS: Bedside Glucose 358 mg/dL (70-110)
[2019-09-10 01:03] VITALS: BP 182/117
--- NOTE | 2019-09-10 01:53 | ED.DCSUM_ITS ---
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 He is resting in the bed. Is reported his blood sugar was high and he was lethargic. Sent in for further evaluation for blood sugar greater than 500. The patient is on medications for diabetes. He has a history of schizophrenia. When asked if he has any complaints he opens his eyes and says no and falls back asleep. Patient's had no nausea or vom iting. - Past Medical History (1) Acute renal failure Status: Acute Past Medical History - Allergies and Home Meds Allergies/Adverse Reactions: Allergies No Known Allergies Allergy (Verified 09/09/19 23:29) Primary Care Physician: Bernard Hankins MD [Primary Care Provider] - Prior records reviewed: Yes Past Medical History: - - See problem list, schizophrenia Surgical History: - - Patient denies surgical history Lives: [facility] Smoking Status: Former smoker Alcohol: None Drugs: None - Family History Maternal Family History: Reports: - - Patient denies known paternal medical history including cardiac history. Paternal Family History: Reports: - - Patient denies known paternal medical history including cardiac history. Review of Systems General: Denies: Chills, Fever, Sweats Eyes: Denies: Visual changes - bilaterally, Diplopia ENT: Denies: Rhinorrhea, Sore throat Cardiovascular: Denies: Chest pain, Palpitations Respiratory: Denies: Dyspnea, Cough, Dyspnea on exertion Gastrointestinal: Denies: Abdominal pain, Nausea, Vomiting, Diarrhea, Melena, Hematochezia Genitourinary: Denies: Dysuria, Hematuria, Frequency Musculoskeletal: Denies: Back pain, Extremity Pain Skin: Denies: Rash, Wounds Neurological: Denies: Headache, Weakness, Numbness Physical Exam Vital Signs/Narrative: Vital Signs Temp Pulse Resp BP Pulse Ox 09/10/19 01:03 182/117 H 09/10/19 00:18 182/117 H 09/09/19 23:19 98.8 F 83 18 134/69 H 98 General: Well nourished, Well developed, No Acute Distress, - - Resting comfortably and opens his eyes when I speak to him. Head: Normocephalic, Atraumatic Eyes: Perrl, EOMI ENT: Moist mucous membranes, No rhinorrhea Neck: Supple, Nontender Cardiovascular: Regular rate, Regular rhythm, No murmurs Respiratory: No distress, CTA bilaterally, Chest nontender Abdomen: Soft, Nontender, Nondistended, Normal bowel sounds Back: Nontender, Normal Inspection Extremities: Nontender, No edema Skin: Normal color, No rash Neurological: Alert, Oriented x3, Cranial nerves II-XII grossly intact, Normal Strength, Normal Sensation Psychological: Normal affect, Normal Mood Diagnostic/Tx/Re-eval - Medical Decision Making Given IV fluids. Given a dose of NovoLog. Blood sugar has declined. Lab work obtained. Blood work shows a repeat blood sugar after treatment of 235. No evidence of HHS or DKA. Patient resting comfortably after treatment. Will be discharged ED Disposition - Plan for ED Patient: Disposition: Home or Assisted Living Diagnosis: Diabetes mellitus with hyperglycemia Instructions: ED Diabetic Hyperglycemia Referrals: Bernard Hankins MD [Primary Care Provider] -
[2019-09-10] MEDS: 0.9% Normal Saline 1,000 ML 1000 ML IV (02:00)
[2019-09-10 02:01] LABS: Absolute Lymphocyte Count 1.63 X10^3/uL (0.83-4.51); Absolute Neutrophil Count 3.9 X10^3/uL (2.0-7.7); Basophil# 0.04 X10^3/uL; Basophil% 0.6 % (0-1); Eosinophil# 0.16 X10^3/uL; Eosinophils% 2.5 % (0-5); Hematocrit 31.1 % (40-54); Hemoglobin 10.1 g/dL (13.0-16.5); Lymphocyte # 1.63 X10^3/ul (4.0); Lymphocyte % 25.8 % (19-41); Mean Corp Hgb Conc 32.5 g/dL (32-36); Mean Corpuscular Hgb 29.9 pg (27.0-32.0); Monocyte# 0.56 X10^3/uL; Monocyte% 8.9 % (0-10); NRBC Flagged by Analyzer 0 % (0-5); Neutrophil % 61.7 % (47-70); Platelet Count 287 K/mm3 (150-450); RBC Distribution Width CV 15.6 % (11.6-14.6); Red Blood Count 3.38 M/mm3 (4.6-6.2); White Blood Count 6.3 K/mm3 (4.4-11.0)
[2019-09-10] MEDS: Insulin Lispro 100 UNIT/ML INSULN.PEN 20 UNIT SC (02:22)
[2019-09-10 02:40] LABS: Anion Gap 7 (5-15); BUN 41 mg/dL (7-18); BUN/Creat Ratio 25.3 RATIO (10-20); Calcium,Total 8.2 mg/dL (8.5-10.1); Chloride 107 mmol/L (98-107); Creatinine, Serum 1.62 mg/dL (0.70-1.30); EST Glomerular Filtration Rate 46 mL/min (>60); Est Glom Filt Rate - Afr Amer 56 mL/min (>60); Estimated Creatinine Clearance 52.56 ml/min; Glucose 299 mg/dL (74-106); Potassium 4.5 mmol/L (3.5-5.1); Sodium Level 138 mmol/L (136-145)
[2019-09-10 03:16] LABS: Bedside Glucose 235 mg/dL (70-110)
[2019-09-10 04:06] VITALS: PULSE 80; RESP 16
== END 2019-09-10 04:31 | disposition skilled nursing facility (03) ==
PROVIDERS: Emergency Provider Emergency Medicine; Family Provider Family Medicine; PCP Family Medicine
DX: E11.65 Type 2 diabetes mellitus with hyperglycemia (principal); N17.9 Acute kidney failure, unspecified; F20.9 Schizophrenia, unspecified; Z79.4 Long term (current) use of insulin; Z79.84 Long term (current) use of oral hypoglycemic drugs; Z87.891 Personal history of nicotine dependence
CPT/HCPCS: 80048; 82962; 85025; 96360; 99284; J7030; A4216

== ENCOUNTER 2021-09-23 21:36 | Inpatient (IN) | payer MEDICARE, MEDICAID, SELFPAY ==
[2021-09-23 21:37] VITALS: BP 158/79; PULSE 114; RESP 16; TEMP 36.1; O2SAT 95
--- NOTE | 2021-09-23 21:58 | EKG12_ITS ---
Test Reason : DYSRHYTHMIA Blood Pressure : / mmHG Vent. Rate : 109 BPM Atrial Rate : 109 BPM P-R Int : 134 ms QRS Dur : 072 ms QT Int : 332 ms P-R-T Axes : 072 069 073 degrees QTc Int : 447 ms Sinus tachycardia Otherwise normal ECG Confirmed by BENEDICT JADE, OLIVER ([id number]), video news editor TYRONE SANTIAGO ([id number]) on 09/24/2021 1:27:16 PM Referred By: PL Confirmed By:GABRIELLE MCMULLEN MD
--- NOTE | 2021-09-23 21:58 | CT_ITS ---
EXAMINATION : Head CT w/out contrast HISTORY : Mental Status Change COMPARISON : None. TECHNIQUE : Multiple contiguous axial images were obtained from the skull base to the vertex without intravenous contrast. A radiation dose optimization technique was used for this scan. FINDINGS : There is no evidence for acute intracranial hemorrhage, mass effect, or midline shift. There is no extra-axial fluid collection. There are periventricular white matter changes consistent with chronic microvascular ischemic disease. There is sulcal widening and ventricular enlargement consistent with cerebral atrophy. There is normal leiva-white differentiation, without CT evidence of acute ischemia or infarct. The skull base and calvarium are unremarkable. The orbits are unremarkable. The paranasal sinuses are clear. The mastoid air cells are well-aerated. The soft tissues are unremarkable. CT/Brain/Head without Contrast IMPRESSION: No acute intracranial abnormality. Chronic involutional and ischemic changes of the brain. Electronically Signed: Leo Norman MD at 23:37 EST Tel , Service support ,
--- NOTE | 2021-09-23 22:00 | EDS_ITS ---
HPI History of Present Illness Chief Complaint: Weakness Narrative Narrative: History and physical is limited secondary to patient condition. Patient presents via EMS from long term facility. He has reported mental status change. They state he vomited once. Patient denies any pain. They state that he is lethargic from the retirement. According to his retirement papers, he comes from [facility], and has past medical history of schizophrenia, diabetes, hypertensive heart and chronic kidney disease with heart failure, and generalized muscle weakness. PFSH PFSH Medical History Anxiety and depression Chronic anemia CKD (chronic kidney disease), stage III Diabetes mellitus, type 2 HLD (hyperlipidemia) HTN (hypertension) Hypothyroidism Schizophrenia Tobacco use Home Medications aripiprazole 5 mg PO DAILY 07/25/19 [History Last Taken 07/25/19] aripiprazole 20 mg PO DAILY 07/25/19 [History Last Taken 07/25/19] aspirin 81 mg PO DAILY@0800 07/25/19 [History Last Taken 07/25/19] atorvastatin 80 mg PO DAILY 07/25/19 [History Last Taken 07/24/19] cholecalciferol (vitamin D3) 2,000 unit PO DAILY 07/25/19 [History Last Taken 07/25/19] divalproex 2,000 mg PO DAILY 07/25/19 [History Last Taken 07/24/19] divalproex 250 mg PO BID 07/25/19 [History Last Taken 07/25/19] ferrous sulfate 325 mg PO DAILY 07/25/19 [History Last Taken 07/25/19] haloperidol 5 mg PO Q6H PRN PRN 07/25/19 [History Last Taken 07/18/19] haloperidol 5 mg PO TID 07/25/19 [History Last Taken 07/25/19] insulin glargine 30 unit SQ QHS 07/25/19 [History Last Taken 07/24/19] insulin lispro 10 unit SQ TID 07/25/19 [History Last Taken 07/24/19] levothyroxine 50 mcg PO DAILY 07/25/19 [History Last Taken 07/25/19] lorazepam 1 mg PO BID 07/25/19 [History Last Taken 07/25/19] lorazepam 1 mg PO Q6H PRN PRN 07/25/19 [History Last Taken 07/18/19] medroxyprogesterone 10 mg PO BID 07/25/19 [History Last Taken 07/25/19] metformin 1,000 mg PO BID 07/25/19 [History Last Taken 07/25/19] metoprolol tartrate 50 mg PO BID 07/25/19 [History Last Taken 07/25/19] trazodone 100 mg PO QHS 07/25/19 [History Last Taken 07/24/19] furosemide 40 mg PO DAILY #0 07/27/19 [Rx Last Taken 07/24/19] albuterol sulfate 0.63 mg INHALATION Q4H PRN PRN 09/23/21 [History Last Taken Unknown] losartan 100 mg PO DAILY 09/23/21 [History Last Taken Unknown] Allergy/AdvReac Type Severity Reaction Status Date / Time No Known Allergies Allergy Verified 09/09/19 23:29 Family History (Updated 09/23/21 @ 23:[address] Angelina Campblel MD) Mother No family history of disorders Father No family history of disorders Surgical History (Updated 09/23/21 @ 23:[address] Angelina Campbell MD) No history of previous surgery Social History (Updated 09/23/21 @ 23:[address] Angelina Campbell MD) housing: other details: [facility]. Smoking Status: Current every day smoker alcohol intake: never substance use type: does not use EXAM Physical Exam Const Vital Signs: 09/23/21 21:37 09/23/21 22:33 09/23/21 23:38 Temperature 97.0 F L Temperature Source Temporal Pulse Rate 114 H 107 H Respiratory Rate 16 10 L Respiratory Effort Normal Respiratory Pattern Normal Blood Pressure 158/79 H 136/79 H Blood Pressure Mean 105 98 Pulse Ox 95 95 Oxygen Delivery Method Room Air Room Air MDM MDM MDM Narrative Medical decision making narrative: Comprehensive work-up was pursued. EKG demonstrates sinus tachycardia at 109 bpm without ectopy or acute ST changes. White count slightly elevated at 12.6, hemoglobin 10.7 with normal platelet count of 304. Electrolyte panel shows BUN elevated at 37 with a creatinine of 1.55. He does have history of chronic kidney injury. Electrolytes otherwise unremarkable, AST low at 14 with normal ALT of 21. Ammonia level normal at 21. High-sensitivity troponin is elevated at 293. While he has chronic kidney injury, concern is that this is high regardless of elevated creatinine. I spoke with Dr. Moodispaw with cardiology. Patient will be admitted to hospital medicine. His chest x-ray shows streaky opacities in the left base which could be atelectasis. CT of the brain is grossly unremarkable, no hemorrhage. Urinalysis shows no evidence of infection. Lactic acid normal at 1.9. I discussed patient with Dr. Campbell who will admit the patient to the PCU. The patient is in stable condition. Lab Data Attestation: I reviewed the patient's lab results. Labs: Laboratory Results - last 24 hr 09/23/21 09/23/21 09/23/21 22:20 22:20 22:20 WBC 12.6 H RBC 3.68 L Hgb 10.7 L Hct 33.3 L MCV 90.5 MCH 29.1 MCHC 32.1 RDW Std Deviation 47.8 H RDW Coeff of Saman 14.5 Plt Count 304 MPV 11.6 Immature Gran % (Auto) 0.600 Neut % (Auto) 73.6 H Lymph % (Auto) 12.0 L [place] % (Auto) 13.1 H Eos % (Auto) 0.5 Baso % (Auto) 0.2 Absolute Neuts (auto) 9.3 H Absolute Lymphs (auto) 1.51 Nucleated RBC % 0 Differential Comment SCANNED Diff Path Review May foll Sodium 140 Potassium 4.5 Chloride 106 Carbon Dioxide 29.0 Anion Gap 5 BUN 37 H Creatinine 1.55 H Estim Creat Clear Calc 53.54 Est GFR (MDRD) Af Amer 59 L Est GFR (MDRD) Non-Af 48 L BUN/Creatinine Ratio 23.9 H Glucose 96 Lactic Acid Calcium 8.8 Total Bilirubin 0.30 AST 14 L ALT 21 Alkaline Phosphatase 65 Ammonia 21.0 Troponin I High Sens 293 H* Total Protein 6.4 Albumin 2.4 L Globulin 4.0 Albumin/Globulin Ratio 0.6 L Lipase 39 L Urine Color Urine Clarity Urine pH Ur Specific [place] Urine Protein Urine Glucose (UA) Urine Ketones Urine Occult Blood Urine Nitrite Urine Bilirubin Urine Urobilinogen Ur Leukocyte Esterase Urine RBC Urine WBC Ur Squamous Epith Cells Urine Bacteria Urine Mucus 09/23/21 09/23/21 22:20 22:30 WBC RBC Hgb Hct MCV MCH MCHC RDW Std Deviation RDW Coeff of Saman Plt Count MPV Immature Gran % (Auto) Neut % (Auto) Lymph % (Auto) [place] % (Auto) Eos % (Auto) Baso % (Auto) Absolute Neuts (auto) Absolute Lymphs (auto) Nucleated RBC % Differential Comment Diff Path Review Sodium Potassium Chloride Carbon Dioxide Anion Gap BUN Creatinine Estim Creat Clear Calc Est GFR (MDRD) Af Amer Est GFR (MDRD) Non-Af BUN/Creatinine Ratio Glucose Lactic Acid 1.9 Calcium Total Bilirubin AST ALT Alkaline Phosphatase Ammonia Troponin I High Sens Total Protein Albumin Globulin Albumin/Globulin Ratio Lipase Urine Color Yellow Urine Clarity Clear Urine pH 7.0 Ur Specific [place] 1.010 Urine Protein 100 H Urine Glucose (UA) Normal Urine Ketones Negative Urine Occult Blood Negative Urine Nitrite Negative Urine Bilirubin Negative Urine Urobilinogen 4 H Ur Leukocyte Esterase Negative Urine RBC 0 SEEN Urine WBC 0 SEEN Ur Squamous Epith Cells 0 SEEN Urine Bacteria 0 SEEN Urine Mucus 0 SEEN Radiography Diagnostic Testing: Clinical Impression(s) from Imaging Studies Brain CT 09/23/21 21:58 IMPRESSION: No acute intracranial abnormality. Chronic involutional and ischemic changes of the brain. Electronically Signed: Leo Norman MD at 23:37 EST Tel , Service support , Chest X-Ray 09/23/21 22:45 IMPRESSION: Subtle streaky opacities in the left lung base could represent atelectasis versus infection in the correct clinical setting. Electronically Signed: Leo Norman MD at 23:38 EST Tel , Service support , Discharge Plan Dx/Rx/DC Orders Clinical Impression: NSTEMI, initial episode of care, Altered mental status, Lethargy, Schizophrenia Disposition Disposition: Acute Care Hospital [facility]
[2021-09-23 22:30] LABS: Absolute Lymphocyte Count 1.51 X10^3/uL (0.83-4.51); Absolute Neutrophil Count 9.3 X10^3/uL (2.0-7.7); Basophil# 0.02 X10^3/uL; Basophil% 0.2 % (0-1); Eosinophil# 0.06 X10^3/uL; Eosinophils% 0.5 % (0-5); Hematocrit 33.3 % (40-54); Hemoglobin 10.7 g/dL (13.0-16.5); Lymphocyte # 1.51 X10^3/ul (0.83-4.51); Mean Corp Hgb Conc 32.1 g/dL (32-36); Mean Corpuscular Hgb 29.1 pg (27.0-32.0); Mean Corpuscular Volume 90.5 fL (80-94); Mean Platelet Vol. 11.6 fl (6.2-12.0); Monocyte# 1.65 X10^3/uL; Monocyte% 13.1 % (0-10); NRBC Flagged by Analyzer 0 % (0-5); Neutrophil # 9.28 X10^3/uL (2.7-7.7); Neutrophil % 73.6 % (47-70); POSITIVE DIFFERENTIAL YES; Platelet Count 304 K/mm3 (150-450); RBC Distribution Width CV 14.5 % (11.6-14.6); RBC Distribution Width SD 47.8 fl (35.1-43.9); Red Blood Count 3.68 M/mm3 (4.6-6.2); White Blood Count 12.6 K/mm3 (4.4-11.0)
[2021-09-23 22:33] LABS: Differential Indicated SCAN CRITERIA MET
[2021-09-23] MEDS: 0.9% Normal Saline 1,000 ML 1000 ML IV (22:35)
[2021-09-23 22:38] LABS: Bacteria 0 SEEN /hpf (None Seen); Mucous, Urine 0 SEEN /hpf (<or=2+); Red Blood Cells-Urine 0 SEEN /hpf (0-5); Squamous Epithelial Cells - UA 0 SEEN /hpf (0-5); White Blood Cells 0 SEEN /hpf (0-5)
[2021-09-23 22:40] LABS: Color, Urine Yellow (Yellow); Glucose, Dipstick Normal (Normal); Ketone-Dipstick Negative (Negative); Leukocyte Esterase-Dipstick Negative /ul (Negative); Nitrite-Dipstick Negative (Negative); Occult Blood-Urine Negative /ul (Negative); Protein-Dipstick 100 mg/dl (Negative); Urine Bilirubin Dipstick Negative (Negative); Urine Clarity Clear (Clear); Urine Urobilinogen 4 mg/dl (Normal)
--- NOTE | 2021-09-23 22:45 | RAD_ITS ---
INDICATION: CAD EXAMINATION/TECHNIQUE: X-RAY - XR Chest 1 View COMPARISON: None. FINDINGS: Subtle streaky opacities in the left lung base. The cardiomediastinal silhouette is unremarkable. No pleural effusion or pneumothorax. No acute osseous abnormalities. RAD/Chest 1 View (Portable) IMPRESSION: Subtle streaky opacities in the left lung base could represent atelectasis versus infection in the correct clinical setting. Electronically Signed: Leo Norman MD at 23:38 EST Tel , Service support ,
[2021-09-23 22:50] LABS: ALB/GLOB Ratio 0.6 RATIO (0.9-2.4); AST(SGOT) 14 U/L (15-37); Alanine Aminotransfer ALT/SGPT 21 U/L (16-61); Albumin, Serum 2.4 g/dL (3.2-5.0); Alkaline Phosphatase 65 U/L (45-117); Anion Gap 5 (5-15); BUN 37 mg/dL (7-18); BUN/Creat Ratio 23.9 RATIO (10-20); Calcium,Total 8.8 mg/dL (8.5-10.1); Chloride 106 mmol/L (98-107); Creatinine, Serum 1.55 mg/dL (0.70-1.30); EST Glomerular Filtration Rate 48 mL/min (>60); Est Glom Filt Rate - Afr Amer 59 mL/min (>60); Estimated Creatinine Clearance 53.54 ml/min; Glucose 96 mg/dL (74-106); Lipase 39 U/L (73-393); Potassium 4.5 mmol/L (3.5-5.1); Protein, Total 6.4 g/dL (6.4-8.2); Sodium Level 140 mmol/L (136-145); Troponin-I HS 293 pg/mL (3.0-78.0)
[2021-09-23 23:02] LABS: Lactic Acid 1.9 mmol/L (0.4-1.9)
[2021-09-23 23:05] LABS: Differential Comment SCANNED
[2021-09-23] MEDS: Aspirin 325 MG Tablet PO (23:37)
[2021-09-23 23:38] VITALS: BP 136/79; PULSE 107; RESP 10; O2SAT 95
--- NOTE | 2021-09-23 23:52 | HP.PCM.HOS_ITS ---
HPI - General General Date of Admission: 09/23/21 Date of Service: 09/23/21 Chief Complaint: Encephalopathy, N/V HPI Narrative The patient is a 61 y/o M w/ PMHx: HTN, HLD, Schizophrenia, Chronic anemia/Fe deficiency, Hypothyroidism, Diabetes mellitus type II, Tobacco use, CKD stage III unclear subtype who presides at a behavioral health SNF who presents to the [facility] ED on 09/23/21 with history of mental status change with nausea and episode of emesis with [facility] prompting them to send him for evaluation. Per report from skilled facility patient had routine COVID testing that was negative at facility. Patient had no chest pain or dyspnea but is a poor informant. Work-up in the ED included T 97, heart rate 114, BP 158/79, respiratory rate 16, 95% on room air, CBC with WC 12.6, hemoglobin 10.7, platelet 304 with left shift, CMP with BUN/1 and 37/1.55, lactic acid 1.9, ammonia 21, troponin high-sensitivity 293, lipase 39, unremarkable urinalysis, rapid COVID antigen negative, chest x-ray w/ subtle streaky opacities in the left lung base could represent atelectasis versus in fection in the correct clinical setting, CT head w/ chronic involutional and ischemic changes of the brain, EKG ST without acute findings. In the ED patient ministered aspirin 325 mg p.o. x1 as well as normal saline bolus. PFSH Medical History Anxiety and depression Chronic anemia CKD (chronic kidney disease), stage III Diabetes mellitus, type 2 HLD (hyperlipidemia) HTN (hypertension) Hypothyroidism Schizophrenia Tobacco use Home Medications aripiprazole 5 mg PO DAILY 07/25/19 [History Last Taken 07/25/19] aripiprazole 20 mg PO DAILY 07/25/19 [History Last Taken 07/25/19] aspirin 81 mg PO DAILY@0800 07/25/19 [History Last Taken 07/25/19] atorvastatin 80 mg PO DAILY 07/25/19 [History Last Taken 07/24/19] cholecalciferol (vitamin D3) 2,000 unit PO DAILY 07/25/19 [History Last Taken 07/25/19] divalproex 2,000 mg PO DAILY 07/25/19 [History Last Taken 07/24/19] divalproex 250 mg PO BID 07/25/19 [History Last Taken 07/25/19] ferrous sulfate 325 mg PO DAILY 07/25/19 [History Last Taken 07/25/19] haloperidol 5 mg PO Q6H PRN PRN 07/25/19 [History Last Taken 07/18/19] haloperidol 5 mg PO TID 07/25/19 [History Last Taken 07/25/19] insulin glargine 30 unit SQ QHS 07/25/19 [History Last Taken 07/24/19] insulin lispro 10 unit SQ TID 07/25/19 [History Last Taken 07/24/19] levothyroxine 50 mcg PO DAILY 07/25/19 [History Last Taken 07/25/19] lorazepam 1 mg PO BID 07/25/19 [History Last Taken 07/25/19] lorazepam 1 mg PO Q6H PRN PRN 07/25/19 [History Last Taken 07/18/19] medroxyprogesterone 10 mg PO BID 07/25/19 [History Last Taken 07/25/19] metformin 1,000 mg PO BID 07/25/19 [History Last Taken 07/25/19] metoprolol tartrate 50 mg PO BID 07/25/19 [History Last Taken 07/25/19] trazodone 100 mg PO QHS 07/25/19 [History Last Taken 07/24/19] furosemide 40 mg PO DAILY #0 07/27/19 [Rx Last Taken 07/24/19] albuterol sulfate 0.63 mg INHALATION Q4H PRN PRN 09/23/21 [History Last Taken Unknown] losartan 100 mg PO DAILY 09/23/21 [History Last Taken Unknown] Allergy/AdvReac Type Severity Reaction Status Date / Time No Known Allergies Allergy Verified 09/09/19 23:29 Family History (Updated 09/23/21 @ 23:[address] Angelina Campbell MD) Mother No family history of disorders Father No family history of disorders no significant family history (Denies any marked maternal/paternal family history including HD, DM, CA.) Surgical History (Updated 09/23/21 @ 23:[address] Angelina Campbell MD) No history of previous surgery Social History (Updated 09/23/21 @ 23:[address] Angelina Campbell MD) housing: other details: Behavioral SNF. Smoking Status: Current every day smoker alcohol intake: never substance use type: does not use ROS ROS Narrative Admission Review of Systems: CONSTITUTIONAL: No weight loss, fever, chills, + weakness or fatigue. HEENT: Eyes: No visual loss, blurred vision, double vision or yellow sclerae. Ears, Nose, Throat: No hearing loss, sneezing, congestion, runny nose or sore throat. SKIN: No rash or itching, lesions, wounds. CARDIOVASCULAR: No chest pain, chest pressure or chest discomfort, palpitations, edema, orthopnea, syncopal events. RESPIRATORY: No shortness of breath, cough or sputum, wheezing, hemoptysis. GASTROINTESTINAL: + anorexia, nausea, vomiting, No diarrhea, abdominal pain, melena, BRBPR. GENITOURINARY: No dysuria, frequency, urgency or retention. NEUROLOGICAL: + Confusion/lethargy, seizure disorder, No headache, dizziness, syncope, paralysis, ataxia, numbness or tingling in the extremities, focal weakness, change in bowel or bladder control. MUSCULOSKELETAL: + muscle, back pain, joint pain or stiffness. HEMATOLOGIC: + anemia, bleeding or bruising. LYMPHATICS: No enlarged nodes. No history of splenectomy. PSYCHIATRIC: + history of depression or anxiety. ENDOCRINOLOGIC: No reports of sweating, cold or heat intolerance. No polyuria or polydipsia. ALLERGIES: No history of asthma, hives, eczema or rhinitis. Vital Signs Vital Signs Vital Signs: 09/23/21 21:37 09/23/21 22:33 09/23/21 23:38 Temperature 97.0 F L Temperature Source Temporal Pulse Rate 114 H 107 H Respiratory Rate 16 10 L Respiratory Effort Normal Respiratory Pattern Normal Blood Pressure 158/79 H 136/79 H Blood Pressure Mean 105 98 Pulse Ox 95 95 Oxygen Delivery Method Room Air Room Air Weight Weight: 221 lb 9.033 oz Body Mass Index (BMI) 30.0 Physical Exam Narrative Physical Examination: General: Awake, alert, oriented to self, place and recent events, seems improved since initial ED presentation, following some commands, seated upright in ED bed, denies any chest pain. Skin: Normal color, normal turgor, no icterus, no cyanosis except bilateral lower extremity venous stasis skin changes. HEENT: AT/NC, EOMI, PERRLA, moderately dry MM, no carotid bruits or JVD noted. Lungs: CTA bilaterally, moderate effort, mild decrease BL bases, no rales, ronchi or wheezing. Heart: Regular rate and rhythm; no gallop, rub audible. Abdomen: Soft, overweight, NTTP, ND, normal BS, no HSM. Extremities: No cyanosis, no clubbing, mild pedal to distal mauricio 1+ pitting edema. Neurological: Patient awake, alert, oriented as noted, cognitive function suspect improving, near baseline intact likely impaired by underlying history of schizophrenia with psychiatric disorders; pupils equally reactive to light and accommodation, cranial nerves II-XII grossly normal, moving all 4 extremities, no focal deficits, strength moderately global decrease. Psychiatric: Affect appears fatigued, mildly flat, no acute evidence of depressive or anxiety feelings. Results Lab / Micro Data Result Diagrams: 09/23/21 22:20 09/23/21 22:20 Labs: Laboratory Results - last 24 hr 09/23/21 22:20: WBC 12.6 H, RBC 3.68 L, Hgb 10.7 L, Hct 33.3 L, MCV 90.5, MCH 29.1, MCHC 32.1, RDW Std Deviation 47.8 H, RDW Coeff of Saman 14.5, Plt Count 304, MPV 11.6, Immature Gran % (Auto) 0.600, Neut % (Auto) 73.6 H, Lymph % (Auto) 12.0 L, Hanson % (Auto) 13.1 H, Eos % (Auto) 0.5, Baso % (Auto) 0.2, Absolute Neuts (auto) 9.3 H, Absolute Lymphs (auto) 1.51, Nucleated RBC % 0, Differential Comment SCANNED, Diff Path Review January foll 09/23/21 22:20: Sodium 140, Potassium 4.5, Chloride 106, Carbon Dioxide 29.0, Anion Gap 5, BUN 37 H, Creatinine 1.55 H, Estim Creat Clear Calc 53.54, Est GFR (MDRD) Af Amer 59 L, Est GFR (MDRD) Non-Af 48 L, BUN/Creatinine Ratio 23.9 H, Glucose 96, Calcium 8.8, Total Bilirubin 0.30, AST 14 L, ALT 21, Alkaline Phosphatase 65, Troponin I High Sens 293 H*, Total Protein 6.4, Albumin 2.4 L, Globulin 4.0, Albumin/Globulin Ratio 0.6 L, Lipase 39 L 09/23/21 22:20: Ammonia 21.0 09/23/21 22:20: Lactic Acid 1.9 09/23/21 22:30: Urine Color Yellow, Urine Clarity Clear, Urine pH 7.0, Ur Specific [place] 1.010, Urine Protein 100 H, Urine Glucose (UA) Normal, Urine Ketones Negative, Urine Occult Blood Negative, Urine Nitrite Negative, Urine Bilirubin Negative, Urine Urobilinogen 4 H, Ur Leukocyte Esterase Negative, Urine RBC 0 SEEN, Urine WBC 0 SEEN, Ur Squamous Epith Cells 0 SEEN, Urine Bacteria 0 SEEN, Urine Mucus 0 SEEN Micro: Microbiology 09/23/21 22:12 Nasal Secretion SARS-CoV-2 Antigen (Rapid) - Final Radiology Impression Brain CT 09/23/21 21:58 IMPRESSION: No acute intracranial abnormality. Chronic involutional and ischemic changes of the brain. Electronically Signed: Leo Norman MD at 23:37 EST Tel , Service support , Chest X-Ray 09/23/21 22:45 IMPRESSION: Subtle streaky opacities in the left lung base could represent atelectasis versus infection in the correct clinical setting. Electronically Signed: Leo Norman MD at 23:38 EST Tel , Service support , Assessment & Plan Assessment/Plan (1) NSTEMI, initial episode of care: PLAN: The patient is a 61 y/o M w/ PMHx: HTN, HLD, Schizophrenia, Chronic anemia/Fe deficiency, Hypothyroidism, Diabetes mellitus type II, Tobacco use, CKD stage III unclear subtype who presides at a behavioral health SNF who presents to the [facility] ED on 09/23/21 with history of mental status change with nausea and episode of emesis with increased fatigue and lethargy at the [facility] facility prompting them to send him for evaluation. #1. Acute NSTEMI: ED w/ chest x-ray w/ subtle streaky opacities in the left lung base could represent atelectasis versus infection in the correct clinical setting, EKG ST without acute findings, trop high-sensitivity elevated, 293. Will admit to PCU, maintain on a monitored bed, continue serial cardiac enzymes and EKGs. Obtain magnesium level upon admission. Start on therapeutic Lovenox. Continue medical management. Cardiology will be consulted. Echocardiogram requested. FLP in AM. ASA, NG, morphine. #2. Acute encephalopathy, potentially multifactorial: Secondary to acute presentation with NSTEMI as noted, possibly underlying viral illness, will continue treatments as noted, maintain on fall precautions, aspiration precautions. May consider repeat CXR if concern for underlying PNA, no recent cough or dyspnea noted. #3. Hypertension: Continue home regimen including metoprolol, lisinopril, Lasix, amlodipine with hold parameters as needed, PRN hydralazine. #4. Hyperlipidemia: Continue home statin regimen. AM FLP. #5. Anxiety and depression/schizophrenia: Patient with extensive past psychiatric regimen, will cautiously continue aripiprazole, Depakote, Haldol, Ativan, ziprasidone, trazodone with hold on sedated regimen as needed. Will request depakote level. #6. Diabetes mellitus type II: Hold oral home regimen, continue home insulin therapy, ADA diet until n.p.o. status if mental status remains appropriate, accu checks w/ ISS. #7. Chronic Kidney Disease Stage III unclear subtype: Admission BUN/Cr 37/1.55, likely some mild insufficiency with elevated BUN, baseline renal function 1.6 to 09/10/2019, repeat BMP in AM. #8. Chronic anemia/AOCD/Fe deficiency anemia: Admission hemoglobin 10.7, baseline hemoglobin appears 9-10, stable, trend and continue Fe supplementation. #9. Hypothyroidism: Continue home synthroid regimen, TSH and FT4 pending. #10. Tobacco Abuse: Encouraged cessation, inpatient consultation per RT, NR if desired. #11. DVT prophylaxis: SCDs, therapeutic Lovenox as noted. #12. CODE STATUS: Full code per facility paperwork. Charges/Coding Visit Charges Inpatient E&M: 42697 Init Hosp L3
[2021-09-24] VITALS (11 sets, daily range): BP systolic 152–210; BP diastolic 77–109; PULSE 98–121; RESP 18–20; TEMP 36.7–37.7; O2SAT 90–95; BMI 28.5
[2021-09-24] MEDS: Enoxaparin 100 MG/ML Syringe SC ×2 (00:14→05:52)
--- NOTE | 2021-09-24 01:22 | PCS.PANDOC ---
PANDEMIC DOCUMENTATION INITIATED: Date: 04/27/2021 Time: 190
--- NOTE | 2021-09-24 01:25 | ECHOD_ITS ---
Reason For Study: NSTEMI Procedure This was a 2D Doppler, Color Flow transthoracic echocardiogram. Ltd imaging due to pt being restless and not cognitive enough to follow directions. The study was technically difficult. The study was technically limited. Exam performed portable in patient room. Left Ventricle Mild concentric left ventricular hypertrophy. Based upon the 2D echocardiographic images obtained there appears to be grossly normal left ventricular size, wall motion, and systolic function. The estimated ejection fraction is 65 %. Unable to assess diastolic dysfunction. Right Ventricle Normal RV size. Normal systolic function. Atria Normal left atrium. Normal right atrium. Mitral Valve There is mild mitral annular calcification. Extension of the mitral annular calcification onto the base of the posterior mitral valve leaflet. Trivial mitral valve insufficiency. Tricuspid Valve Normal tricuspid valve. Trivial tricuspid valve insufficiency. Unable to estimate RV systolic pressure/pulmonary artery pressure due to technically difficult study. Aortic Valve The aortic valve is not well visualized. Pulmonic Valve The pulmonic valve is not well visualized. Great Vessels The aortic root is not well visualized. Pericardium/Pleural No pericardial effusion. MMode/2D Measurements & Calculations LVIDd: 4.2 cm IVSd: 1.3 cm LAV(MOD-sp4): 34.5 ml LVIDs: 3.3 cm LVPWd: 1.3 cm FS: 20.8 % LVAd ap4: 23.4 cm2 SV(MOD-sp4): 31.4 ml SV(sp4-el): 32.6 ml LVLd ap4: 6.8 cm EDV(MOD-sp4): 67.4 ml EDV(sp4-el): 68.5 ml LVAs ap4: 16.1 cm2 LVLs ap4: 6.2 cm ESV(MOD-sp4): 36.0 ml ESV(sp4-el): 35.9 ml EF(MOD-sp4): 46.6 % EF(sp4-el): 47.6 % LA A4 area: 13.3 cm2 LA dimension(2D): 3.3 cm RA A4 area: 9.9 cm2 ECHO/Echo Complete Interpretation Summary The study was technically difficult. The study was technically limited. Based upon the 2D echocardiographic images obtained there appears to be grossly normal left ventricular size, wall motion, and systolic function. The estimated ejection fraction is 65 %. Mild concentric left ventricular hypertrophy. There is mild mitral annular calcification. Extension of the mitral annular calcification onto the base of the posterior mi tral valve leaflet. Trivial mitral valve insufficiency. Trivial tricuspid valve insufficiency. Unable to estimate RV systolic pressure/pulmonary artery pressure due to techni marcie difficult study. Unable to assess diastolic dysfunction. Ordering Physician: Angelina Campbell Referring Physician: LELAND ROUSSEAU Performed By: Rema Hu, JOSSUE, RVT
--- NOTE | 2021-09-24 01:25 | EKG12_ITS ---
Test Reason : CP Blood Pressure : / mmHG Vent. Rate : 100 BPM Atrial Rate : 100 BPM P-R Int : 126 ms QRS Dur : 076 ms QT Int : 340 ms P-R-T Axes : 055 072 075 degrees QTc Int : 438 ms Sinus rhythm with occasional Premature ventricular complexes Otherwise normal ECG Confirmed by KIMBERLY JADE, LANDEN ([id number]), multimedia editor TYRONE SANTIAGO ([id number]) on 09/28/2021 11:35:27 AM Referred By: ZULEMA Confirmed By:LANDEN HARRIS MD
[2021-09-24 01:41] LABS: Bedside Glucose 42 mg/dL (70-110)
[2021-09-24] MEDS: 0.9% Saline Lock 10 ML Syringe IV ×2 (01:41→05:51)
[2021-09-24] MEDS: 0.9% Normal Saline 1,000 ML 100 ML IV (01:44)
[2021-09-24] MEDS: Metoprolol Tartrate 50 MG Tablet PO ×2 (01:48→07:50)
[2021-09-24] MEDS: Dextrose 50%-Water 25 GM/50 ML DISP.SYRIN IV ×2 (01:53→05:51)
[2021-09-24 01:56] LABS: Valproic Acid (Depakene) Level 97 ug/mL (50-100)
[2021-09-24 02:00] LABS: Magnesium 1.9 mg/dL (1.6-2.6); Troponin-I HS 320 pg/mL (3.0-78.0)
[2021-09-24 02:11] LABS: BNP,B-Type NATRIURETIC PEPTIDE 20.7 pg/mL (0-100)
[2021-09-24 02:26] LABS: Bedside Glucose 150 mg/dL (70-110)
[2021-09-24] MEDS: CLARIFY ORDER 1 EACH NOTE (02:47)
[2021-09-24] MEDS: Haloperidol 5 MG Tablet PO ×2 (05:52→13:36)
[2021-09-24] MEDS: Levothyroxine 50 MCG Tablet PO (05:54)
--- NOTE | 2021-09-24 05:55 | RAD_ITS ---
EXAM: XR Chest, 1 View CLINICAL INDICATION: 61 years old, Male; abnormal CXR TECHNIQUE: Frontal view of the chest. This report was created using [email or web address] report generation technology. COMPARISON: XR Chest dated 09/23/2021 FINDINGS: Lungs and pleural spaces: New infiltrate in the right lung base and stable infiltrate in the left lung base are worrisome for pneumonia. No pneumothorax. No effusion. Heart: Unremarkable. Cardiac silhouette not enlarged. Mediastinum: Central airways and mediastinal contour are unremarkable. Bones/joints: Unremarkable. Soft tissues: Unremarkable. RAD/Chest 1 View (Portable) IMPRESSION: New infiltrate in the right lung base and stable infiltrate in the left lung base are worrisome for pneumonia. Electronically Signed: Lizandro Baltazar MD at 6:37 EST Tel , Service support ,
[2021-09-24] MEDS: hydrALAZINE 20 MG/ML Vial 10 MG IV (06:03)
[2021-09-24 06:07] LABS: Absolute Lymphocyte Count 2.07 X10^3/uL (0.83-4.51); Absolute Neutrophil Count 9.9 X10^3/uL (2.0-7.7); Basophil# 0.03 X10^3/uL; Basophil% 0.2 % (0-1); Eosinophil# 0.02 X10^3/uL; Eosinophils% 0.2 % (0-5); Hematocrit 33.8 % (40-54); Lymphocyte # 2.07 X10^3/ul (0.83-4.51); Lymphocyte % 15.5 % (19-41); Mean Corp Hgb Conc 32.5 g/dL (32-36); Mean Corpuscular Hgb 29.1 pg (27.0-32.0); Mean Corpuscular Volume 89.4 fL (80-94); Mean Platelet Vol. 11.8 fl (6.2-12.0); Monocyte# 1.22 X10^3/uL; Monocyte% 9.2 % (0-10); NRBC Flagged by Analyzer 0 % (0-5); Neutrophil # 9.91 X10^3/uL (2.7-7.7); Neutrophil % 74.4 % (47-70); Platelet Count 298 K/mm3 (150-450); RBC Distribution Width CV 14.6 % (11.6-14.6); RBC Distribution Width SD 47.8 fl (35.1-43.9); Red Blood Count 3.78 M/mm3 (4.6-6.2); White Blood Count 13.3 K/mm3 (4.4-11.0)
[2021-09-24 06:46] LABS: Bedside Glucose 132 mg/dL (70-110)
[2021-09-24 06:46] LABS: Bedside Glucose 52 mg/dL (70-110)
[2021-09-24] MEDS: Dextrose 5%/0.9% NaCl 1,000 ML 100 ML IV (06:48)
[2021-09-24] MEDS: Metoprolol Tartrate 5 MG/5 ML Vial IV (06:52)
[2021-09-24 06:54] LABS: ALB/GLOB Ratio 0.5 RATIO (0.9-2.4); AST(SGOT) 16 U/L (15-37); Alanine Aminotransfer ALT/SGPT 20 U/L (16-61); Albumin, Serum 2.1 g/dL (3.2-5.0); Alkaline Phosphatase 68 U/L (45-117); Anion Gap 8 (5-15); BUN 31 mg/dL (7-18); BUN/Creat Ratio 23.8 RATIO (10-20); Calcium,Total 8.6 mg/dL (8.5-10.1); Chloride 110 mmol/L (98-107); Cholesterol 103 mg/dL (200); EST Glomerular Filtration Rate 59 mL/min (>60); Est Glom Filt Rate - Afr Amer 72 mL/min (>60); Estimated Creatinine Clearance 63.84 ml/min; Glucose 72 mg/dL (74-106); High Density Lipoprotein 45 mg/dL; Potassium 4.6 mmol/L (3.5-5.1); Protein, Total 6.1 g/dL (6.4-8.2); Sodium Level 143 mmol/L (136-145); T4 Free Direct 1.36 ng/dL (0.76-1.46); Thyroid Stim Hormone (TSH) 1.41 uIU/mL (0.358-3.74); Triglycerides 45 mg/dL; Troponin-I HS 296 pg/mL (3.0-78.0); Very Low Density Lipoprotein 9 mg/dL (5-40)
[2021-09-24] MEDS: Divalproex Sodium 250 MG Tablet PO (07:50)
[2021-09-24] MEDS: Furosemide 40 MG Tablet PO (07:50)
[2021-09-24] MEDS: LORazepam 1 MG Tablet PO (07:50)
[2021-09-24] MEDS: Aspirin E.C. 81 MG Tablet PO (07:50)
[2021-09-24] MEDS: ARIPiprazole 10 MG Tablet 20 MG PO (07:54)
[2021-09-24] MEDS: Ferrous Sulfate 325 MG Tablet PO (07:54)
[2021-09-24] MEDS: Cholecalciferol (VIT D3) 25 MCG TABLET (1,000 UNITS) 50 MCG PO (07:55)
[2021-09-24] MEDS: Losartan Potassium 100 MG Tablet PO (07:55)
[2021-09-24] MEDS: ARIPiprazole 5 MG Tablet PO (07:55)
--- NOTE | 2021-09-24 08:02 | EKG12_ITS ---
Test Reason : NSTEMI Blood Pressure : / mmHG Vent. Rate : 104 BPM Atrial Rate : 104 BPM P-R Int : 136 ms QRS Dur : 072 ms QT Int : 328 ms P-R-T Axes : 068 068 062 degrees QTc Int : 431 ms Sinus tachycardia Otherwise normal ECG Confirmed by KIMBERLY JADE, LANDEN ([id number]), online editor TYRONE SANTIAGO ([id number]) on 09/28/2021 11:35:41 AM Referred By: ROYAL Confirmed By:LANDEN HARRIS MD
--- NOTE | 2021-09-24 09:42 | CON.PCM.CA_ITS ---
Assessment & Plan Assessment/Plan (1) NSTEMI, initial episode of care: PLAN: The patient presents with cardiac enzymes compatible with a non-ST segment elevation NM. It is unclear whether this truly represents an acute coronary syndrome type I event versus being related to a type II event from multiple noncardiac issues. At the present time he is being monitored. His cardiac enzymes have declined. His cardiac rhythm has remained sinus rhythm his ECG is demonstrated no acute changes. An echocardiogram is pending. It is reasonable to continue conservative medical management which include agents such as aspirin, potentially antiplatelets, nitrates as deemed appropriate, beta-blockers, lipid-lowering agents, etc. Based upon the patient's unfortunate mental status condition he does not appear to be a candidate at this time to undergo additional noninvasive or invasive cardiovascular studies. (2) HLD (hyperlipidemia): PLAN: The patient should continue risk factor evaluation and care. (3) HTN (hypertension): PLAN: The patient's blood pressure has been noted to be elevated. There is a question as to whether this is a contributing factor to his alteration in cardiac enzymes. Thus he will need to continue medical management and follow-up. (4) Hypothyroidism: PLAN: The patient should continue further evaluation care of his underlying thyroid disorder. (5) Diabetes mellitus: PLAN: The patient will need continued evaluation care per internal medicine. (6) Renal insufficiency: PLAN: The patient has a history of renal insufficiency. His creatinine levels have waxed and waned. This may be a contributing factor to his elevated troponin I levels. (7) Lethargy: PLAN: The patient does appear to be somewhat lethargic. It is unclear as to the exact etiology at this time. He will continue evaluation and care as deemed appropriate. (8) Altered mental status: PLAN: The patient has altered mental status. He has been undergoing further evaluation of his underlying metabolic state as well as having a brain CT scan performed. (9) Schizophrenia: PLAN: The patient does carry a diagnosis of schizophrenia. This does make his evaluation and care somewhat challenging . Addt'l Comments Overall, at the present time, from a cardiac standpoint, the patient will continue to be monitored. He will continue medical therapy. His echocardiogram will be reviewed. However, as noted above based upon his alteration in mental status, etc., he does not appear to be an ideal candidate for additional noninvasive or invasive cardiovascular procedures at this time. The patient's case has been discussed and reviewed previously with the [facility] emergency department staff. HPI Consult Data Date of Consult: 09/24/21 HPI Narrative HPI Narrative: ERICK DIAZ, is a 61 year old white male who presents for cardiovascular consultation based upon concerns of abnormal cardiac enzymes superimposed upon a history of underlying schizophrenia/altered mental status, Hyperlipidemia, hypertension, hypothyroidism, diabetes mellitus, chronic renal insufficiency, chronic anemia, who resides at a [facility] shelter facility. The patient was transported to [facility] emergency department based upon concerns of his caregivers of an alteration in his mental status as well as an episode of nausea/emesis and overall notation of fatigue/lethargy. At the shelter facility the patient was reported as COVID 19 test nega tive. In the emergency department the patient did not report any obvious chest discomfort or difficulty breathing. There was no report of near syncope or syncope. The patient underwent laboratory studies which demonstrated a troponin I level of 293. The ECG demonstrated sinus tachycardia with no acute ECG changes. A chest x-ray was performed with the findings as noted below. 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 The patient was treated with IV normal saline and aspirin 325 mg p.o. x1. The patient was then recommended for further inpatient evaluation and care. At the present time the patient continues with his mental status changes. He appears to deny any obvious chest discomfort. He does not appear to complain of any acute shortness of breath or dyspnea. There has been no report of ongoing nausea or emesis. There is been no obvious report of ongoing lower extremity peripheral pitting edema. The patient basically states that he is too tired to talk. He has had repeat troponin I levels which increased to 320 and then decreased to 296. He has had repeat ECGs which have demonstrated sinus rhythm as well as an occasional PVC. He has undergone further evaluation with a transthoracic echocardiogram with the results pending. According to the echocardiographic coil repair technician the patient was unable to cooperate with a complete transthoracic echocardiogram and only a limited transthoracic echocardiogram could be performed. [facility] Medical History Anxiety and depression Chronic anemia CKD (chronic kidney disease), stage III Diabetes mellitus Diabetes mellitus, type 2 HLD (hyperlipidemia) HLD (hyperlipidemia) HTN (hypertension) HTN (hypertension) Hypothyroidism Hypothyroidism Renal insufficiency Schizophrenia Tobacco use Home Medications aripiprazole 5 mg PO DAILY 07/25/19 [History Last Taken 07/25/19] aripiprazole 20 mg PO DAILY 07/25/19 [History Last Taken 07/25/19] aspirin 81 mg PO DAILY@0800 07/25/19 [History Last Taken 07/25/19] atorvastatin 80 mg PO DAILY 07/25/19 [History Last Taken 07/24/19] cholecalciferol (vitamin D3) 2,000 unit PO DAILY 07/25/19 [History Last Taken 07/25/19] divalproex 2,000 mg PO QHS 07/25/19 [History Last Taken 07/24/19] divalproex 250 mg PO BID 07/25/19 [History Last Taken 07/25/19] ferrous sulfate 325 mg PO DAILY 07/25/19 [History Last Taken 07/25/19] haloperidol 5 mg PO Q6H PRN PRN 07/25/19 [History Last Taken 07/18/19] haloperidol 5 mg PO TID 07/25/19 [History Last Taken 07/25/19] insulin glargine 30 unit SQ QHS 07/25/19 [History Last Taken 07/24/19] insulin lispro 10 unit SQ TID 07/25/19 [History Last Taken 07/24/19] levothyroxine 50 mcg PO DAILY 07/25/19 [History Last Taken 07/25/19] lorazepam 1 mg PO BID 07/25/19 [History Last Taken 07/25/19] lorazepam 1 mg PO Q6H PRN PRN 07/25/19 [History Last Taken 07/18/19] medroxyprogesterone 10 mg PO BID 07/25/19 [History Last Taken 07/25/19] metformin 1,000 mg PO BID 07/25/19 [History Last Taken 07/25/19] metoprolol tartrate 50 mg PO BID 07/25/19 [History Last Taken 07/25/19] trazodone 100 mg PO QHS 07/25/19 [History Last Taken 07/24/19] furosemide 40 mg PO DAILY #0 07/27/19 [Rx Last Taken 07/24/19] albuterol sulfate 0.63 mg INHALATION Q4H PRN PRN 09/23/21 [History Last Taken Unknown] losartan 100 mg PO DAILY 09/23/21 [History Last Taken Unknown] alum-mag hydroxide-simeth [Mylanta Maximum Strength] 15 ml PO Q4H PRN 09/24/21 [History Last Taken Unknown] dulaglutide [Trulicity] 4.5 mg SUBCUT QWEEK 09/24/21 [History Last Taken Unkno wn] magnesium hydroxide [Milk of Magnesia] 30 ml PO DAILY PRN 09/24/21 [History Last Taken Unknown] nicotine (polacrilex) 2 mg BUCCAL Q2H PRN 09/24/21 [History Last Taken Unknown] Allergy/AdvReac Type Severity Reaction Status Date / Time No Known Allergies Allergy Verified 09/09/19 23:29 Family History (Updated 09/23/21 @ 23:[address] Angelina Campbell MD) Mother No family history of disorders Father No family history of disorders Family History no significant family his Surgical History (Updated 09/23/21 @ 23:[address] Angelina Campbell MD) No history of previous surgery Social History (Updated 09/23/21 @ 23:[address] Angelina Campbell MD) housing: other details: [facility] Smoking Status: Current every day smoker tobacco type: cigarettes alcohol intake: never substance use type: does not use ROS Review of Systems ROS Unobtainable: due to mental condition Physical Exam Narrative The patient is a 61-year-old -[place]yp[place] gentleman who does appear to be lethargic and also appears to require frequent nursing support/redirection. Const no apparent distress HEENT normocephalic, head/scalp atraumatic and hearing grossly normal bilaterally Eyes PERRL, EOMs intact bilaterally and conjunctivae normal Neck supple and no JVD Resp clear to auscultation bilaterally Cardio regular rate, regular rhythm, S1 normal heart sound and S2 normal heart sound GI normal to inspection, nondistended, normoactive bowel sounds Extremity no pedal edema Skin no rashes or lesions noted Neuro moves all extremities Psych Attention / Concentration: attention grossly impaired Risk Stratification Risk Stratification Applicable: Yes Age >/= 65: No >/= 3 CAD Risk Factors (HTN, HLD, DM, family hx of CAD, or current smoker): Yes Aspirin Use in the Past 7 Days: Yes Severe Angina (>/= episodes in 24 hours): No EKG ST Changes >/= 0.5mm: No Positive Cardiac Marker: Yes BRITTNEE Risk Stratification Score: 3 BRITTNEE % Risk: 13% Risk Procedure Criteria Type of Procedure Procedure Type: Elective Elective Risks - COVID COVID Risk Discussion: The surgeon/proceduralist and patient have discussed in detail the risk of exposure to and/or potential harm posed by the COVID-19 virus with having a surgery/procedure at this time versus the risk of delaying the surgery/procedure. It is not possible to know either the risk of delaying the surgery or procedure or chance of getting an infection with perfect accuracy, but a joint decision was made between the patient and the surgeon/proceduralist to proceed at this time with the scheduled surgery/procedure as indicated on the consent form. Objective Data Vital Signs: Vital Signs Temp Pulse Resp BP Pulse Ox 99.9 F H 110 H 20 H 210/109 H 90 09/24/21 05:48 09/24/21 07:50 09/24/21 05:48 09/24/21 06:03 09/24/21 08:29 Oxygen Delivery Method Room Air Weight: 210 lb 8.663 oz Body Mass Index (BMI) 28.5 Intake & Output: Intake and Output for Last 24 Hours 09/22/21 09/23/21 09/24/21 23:59 23:59 23:59 Intake Total 1506.67 / 1506.67 Balance 1506.67 / 1506.67 Lab / Micro Data Result Diagrams: 09/24/21 04:48 09/24/21 04:48 Labs: Laboratory Results - last 24 hr 09/23/21 22:20: WBC 12.6 H, RBC 3.68 L, Hgb 10.7 L, Hct 33.3 L, MCV 90.5, MCH 29.1, MCHC 32.1, RDW Std Deviation 47.8 H, RDW Coeff of [place] 14.5, Plt Count 304, MPV 11.6, Immature Gran % (Auto) 0.600, Neut % (Auto) 73.6 H, Lymph % (Auto) 12.0 L, [place] % (Auto) 13.1 H, Eos % (Auto) 0.5, Baso % (Auto) 0.2, Absolute Neuts (auto) 9.3 H, Absolute Lymphs (auto) 1.51, Nucleated RBC % 0, Differential Comment SCANNED, Diff Path Review January09/23/21 22:20: Sodium 140, Potassium 4.5, Chloride 106, Carbon Dioxide 29.0, Anion Gap 5, BUN 37 H, Creatinine 1.55 H, Estim Creat Clear Calc 53.54, Est GFR (MDRD) Af Amer 59 L, Est GFR (MDRD) Non-Af 48 L, BUN/Creatinine Ratio 23.9 H, Glucose 96, Calcium 8.8, Total Bilirubin 0.30, AST 14 L, ALT 21, Alkaline Phosphatase 65, Troponin I High Sens 293 H*, Total Protein 6.4, Albumin 2.4 L, Globulin 4.0, Albumin/Globulin Ratio 0.6 L, Lipase 39 L 09/23/21 22:20: Ammonia 21.0 09/23/21 22:20: Lactic Acid 1.9 09/23/21 22:20: Valproic Acid 97 09/23/21 22:20: B-Natriuretic Peptide 20.7 09/23/21 22:30: Urine Color Yellow, Urine Clarity Clear, Urine pH 7.0, Ur Specific [place] 1.010, Urine Protein 100 H, Urine Glucose (UA) Normal, Urine Ketones Negative, Urine Occult Blood Negative, Urine Nitrite Negative, Urine Bilirubin Negative, Urine Urobilinogen 4 H, Ur Leukocyte Esterase Negative, Urine RBC 0 SEEN, Urine WBC 0 SEEN, Ur Squamous Epith Cells 0 SEEN, Urine Bacteria 0 SEEN, Urine Mucus 0 SEEN 09/24/21 01:31: Magnesium 1.9, Troponin I High Sens 320 H* 09/24/21 01:34: POC Glucose 42 L* 09/24/21 02:21: POC Glucose 150 H 09/24/21 04:48: Sodium 143, Potassium 4.6, Chloride 110 H, Carbon Dioxide 25.0, Anion Gap 8, BUN 31 H, Creatinine 1.30, Estim Creat Clear Calc 63.84, Est GFR (MDRD) Af Amer 72, Est GFR (MDRD) Non-Af 59 L, BUN/Creatinine Ratio 23.8 H, Glucose 72 L, Calcium 8.6, Total Bilirubin 0.20, AST 16, ALT 20, Alkaline Phosphatase 68, Troponin I High Sens 296 H*, Total Protein 6.1 L, Albumin 2.1 L, Globulin 4.0, Albumin/Globulin Ratio 0.5 L, Triglycerides 45, Cholesterol 103, LDL Cholesterol 49, VLDL Cholesterol 9, HDL Cholesterol 45, TSH 1.41, Free T4 1.36 09/24/21 04:48: WBC 13.3 H, RBC 3.78 L, Hgb 11.0 L, Hct 33.8 L, MCV 89.4, MCH 29.1, MCHC 32.5, RDW Std Deviation 47.8 H, RDW Coeff of [place] 14.6, Plt Count 298, MPV 11.8, Immature Gran % (Auto) 0.500, Neut % (Auto) 74.4 H, Lymph % (Auto) 15.5 L, [place] % (Auto) 9.2, Eos % (Auto) 0.2, Baso % (Auto) 0.2, Absolute Neuts (auto) 9.9 H, Absolute Lymphs (auto) 2.07, Nucleated RBC % 0 09/24/21 05:43: POC Glucose 52 L 09/24/21 06:27: POC Glucose 132 H Micro: Microbiology 09/23/21 22:12 Nasal Secretion SARS-CoV-2 Antigen (Rapid) - Final Cardiology Labs/Tests 09/23/21 22:20: WBC 12.6 H, RBC 3.68 L, Hgb 10.7 L, Hct 33.3 L, MCV 90.5, MCH 29.1, MCHC 32.1, Plt Count 304, MPV 11.6, Immature Gran % (Auto) 0.600, Neut % (Auto) 73.6 H, Lymph % (Auto) 12.0 L, [place] % (Auto) 13.1 H, Eos % (Auto) 0.5, Baso % (Auto) 0.2, Absolute Neuts (auto) 9.3 H, Nucleated RBC % 0 09/23/21 22:20: Sodium 140, Potassium 4.5, Chloride 106, Carbon Dioxide 29.0, Anion Gap 5, BUN 37 H, Creatinine 1.55 H, Est GFR (MDRD) Af Amer 59 L, Est GFR (MDRD) Non-Af 48 L, BUN/Creatinine Ratio 23.9 H, Glucose 96, Calcium 8.8, Total Bilirubin 0.30 09/23/21 22:20: Lactic Acid 1.9 09/23/21 22:20: B-Natriuretic Peptide 20.7 09/23/21 22:30: Urine Color Yellow, Urine Clarity Clear, Urine pH 7.0, Ur Specific [place] 1.010, Urine Protein 100 H, Urine Glucose (UA) Normal, Urine Ketones Negative, Urine Occult Blood Negative, Urine Nitrite Negative, Urine Bilirubin Negative, Urine Urobilinogen 4 H, Ur Leukocyte Esterase Negative, Urine RBC 0 SEEN, Urine WBC 0 SEEN 09/24/21 01:31: Magnesium 1.9 09/24/21 04:48: Sodium 143, Potassium 4.6, Chloride 110 H, Carbon Dioxide 25.0, Anion Gap 8, BUN 31 H, Creatinine 1.30, Est GFR (MDRD) Af Amer 72, Est GFR (MDR D) Non-Af 59 L, BUN/Creatinine Ratio 23.8 H, Glucose 72 L, Calcium 8.6, Total Bilirubin 0.20, Triglycerides 45, Cholesterol 103, LDL Cholesterol 49, VLDL Cholesterol 9, HDL Cholesterol 45 09/24/21 04:48: WBC 13.3 H, RBC 3.78 L, Hgb 11.0 L, Hct 33.8 L, MCV 89.4, MCH 29.1, MCHC 32.5, Plt Count 298, MPV 11.8, Immature Gran % (Auto) 0.500, Neut % (Auto) 74.4 H, Lymph % (Auto) 15.5 L, [place] % (Auto) 9.2, Eos % (Auto) 0.2, Baso % (Auto) 0.2, Absolute Neuts (auto) 9.9 H, Nucleated RBC % 0 Rhythm: Sinus rhythm/sinus tachycardia EKG: As noted above ECHO: Pending Radiography Diagnostic Testing: Radiology Impression Brain CT 09/23/21 21:58 IMPRESSION: No acute intracranial abnormality. Chronic involutional and ischemic changes of the brain. Electronically Signed: Leo Norman MD at 23:37 EST Tel , Service support , Chest X-Ray 09/23/21 22:45 IMPRESSION: Subtle streaky opacities in the left lung base could represent atelectasis versus infection in the correct clinical setting. Electronically Signed: Leo Norman MD at 23:38 EST Tel , Service support , Chest X-Ray 09/24/21 05:55 IMPRESSION: New infiltrate in the right lung base and stable infiltrate in the left lung base are worrisome for pneumonia. Electronically Signed: Lizandro Baltazar MD at 6:37 EST Tel , Service support ,
[2021-09-24] MEDS: Acetaminophen 325 MG Tablet 650 MG PO (09:57)
[2021-09-24 10:46] LABS: Bedside Glucose 121 mg/dL (70-110)
--- NOTE | 2021-09-24 11:50 | PN.HOSP_ITS ---
Subjective Subjective Patient seen and examined. Patient sitting on side of bed attempting to get out of bed on his own. Patient instructed to sit back down. Patient bleeding from IV site as he has taken his IV out, heart monitor also off. Patient confused and mumbling nonsensically. Objective Data Objective Data Vital Signs: Vital Signs Temp Pulse Resp BP Pulse Ox 98.4 F 98 20 H 158/89 H 95 09/24/21 11:00 09/24/21 11:00 09/24/21 11:00 09/24/21 11:00 09/24/21 11:00 Oxygen Delivery Method Room Air Weight: 210 lb 8.663 oz Body Mass Index (BMI) 28.5 Intake & Output: Intake and Output for Last 24 Hours 09/22/21 09/23/21 09/24/21 23:59 23:59 23:59 Intake Total 1506.67 / 1506.67 Balance 1506.67 / 1506.67 Lab / Micro Data Result Diagrams: 09/24/21 04:48 09/24/21 04:48 Labs: Laboratory Results - last 24 hr 09/23/21 22:20: WBC 12.6 H, RBC 3.68 L, Hgb 10.7 L, Hct 33.3 L, MCV 90.5, MCH 29.1, MCHC 32.1, RDW Std Deviation 47.8 H, RDW Coeff of Saman 14.5, Plt Count 304, MPV 11.6, Immature Gran % (Auto) 0.600, Neut % (Auto) 73.6 H, Lymph % (Auto) 12.0 L, [place] % (Auto) 13.1 H, Eos % (Auto) 0.5, Baso % (Auto) 0.2, Absolute Neuts (auto) 9.3 H, Absolute Lymphs (auto) 1.51, Nucleated RBC % 0, Differential Comment SCANNED, Diff Path Review January09/23/21 22:20: Sodium 140, Potassium 4.5, Chloride 106, Carbon Dioxide 29.0, Anion Gap 5, BUN 37 H, Creatinine 1.55 H, Estim Creat Clear Calc 53.54, Est GFR (MDRD) Af Amer 59 L, Est GFR (MDRD) Non-Af 48 L, BUN/Creatinine Ratio 23.9 H, Glucose 96, Calcium 8.8, Total Bilirubin 0.30, AST 14 L, ALT 21, Alkaline Phosphatase 65, Troponin I High Sens 293 H*, Total Protein 6.4, Albumin 2.4 L, Globulin 4.0, Albumin/Globulin Ratio 0.6 L, Lipase 39 L 09/23/21 22:20: Ammonia 21.0 09/23/21 22:20: Lactic Acid 1.9 09/23/21 22:20: Valproic Acid 97 09/23/21 22:20: B-Natriuretic Peptide 20.7 09/23/21 22:30: Urine Color Yellow, Urine Clarity Clear, Urine pH 7.0, Ur Specific [place] 1.010, Urine Protein 100 H, Urine Glucose (UA) Normal, Urine Ketones Negative, Urine Occult Blood Negative, Urine Nitrite Negative, Urine Bilirubin Negative, Urine Urobilinogen 4 H, Ur Leukocyte Esterase Negative, Urine RBC 0 SEEN, Urine WBC 0 SEEN, Ur Squamous Epith Cells 0 SEEN, Urine Bacteria 0 SEEN, Urine Mucus 0 SEEN 09/24/21 01:31: Magnesium 1.9, Troponin I High Sens 320 H* 09/24/21 01:34: POC Glucose 42 L* 09/24/21 02:21: POC Glucose 150 H 09/24/21 04:48: Sodium 143, Potassium 4.6, Chloride 110 H, Carbon Dioxide 25.0, Anion Gap 8, BUN 31 H, Creatinine 1.30, Estim Creat Clear Calc 63.84, Est GFR (MDRD) Af Amer 72, Est GFR (MDRD) Non-Af 59 L, BUN/Creatinine Ratio 23.8 H, Glucose 72 L, Calcium 8.6, Total Bilirubin 0.20, AST 16, ALT 20, Alkaline Phosphatase 68, Troponin I High Sens 296 H*, Total Protein 6.1 L, Albumin 2.1 L, Globulin 4.0, Albumin/Globulin Ratio 0.5 L, Triglycerides 45, Cholesterol 103, LDL Cholesterol 49, VLDL Cholesterol 9, HDL Cholesterol 45, TSH 1.41, Free T4 1.36 09/24/21 04:48: WBC 13.3 H, RBC 3.78 L, Hgb 11.0 L, Hct 33.8 L, MCV 89.4, MCH 29.1, MCHC 32.5, RDW Std Deviation 47.8 H, RDW Coeff of [place]an 14.6, Plt Count 298, MPV 11.8, Immature Gran % (Auto) 0.500, Neut % (Auto) 74.4 H, Lymph % (Auto) 15.5 L, [place] % (Auto) 9.2, Eos % (Auto) 0.2, Baso % (Auto) 0.2, Absolute Neuts (auto) 9.9 H, Absolute Lymphs (auto) 2.07, Nucleated RBC % 0 09/24/21 05:43: POC Glucose 52 L 09/24/21 06:27: POC Glucose 132 H 09/24/21 10:40: POC Glucose 121 H Micro: Microbiology 09/23/21 22:12 Nasal Secretion SARS-CoV-2 Antigen (Rapid) - Final Radiography Diagnostic Testing: Radiology Impression Brain CT 09/23/21 21:58 IMPRESSION: No acute intracranial abnormality. Chronic involutional and ischemic changes of the brain. Electronically Signed: Leo Norman MD at 23:37 EST Tel , Service support , Chest X-Ray 09/23/21 22:45 IMPRESSION: Subtle streaky opacities in the left lung base could represent atelectasis versus infection in the correct clinical setting. Electronically Signed: Leo Norman MD at 23:38 EST Tel , Service support , Chest X-Ray 09/24/21 05:55 IMPRESSION: New infiltrate in the right lung base and stable infiltrate in the left lung base are worrisome for pneumonia. Electronically Signed: Lizandro Baltazar MD at 6:37 EST Tel , Service support , Physical Exam Const alert and no apparent distress Orientation / Consciousness: confused and disoriented HEENT head/scalp atraumatic and moist oral mucous membranes Head and Scalp: normocephalic Eyes conjunctivae normal and no scleral icterus Neck supple General: normal visual inspection and trachea midline Resp normal respiratory effort, normal air movement and clear to auscultation bilaterally Effort and Inspection: able to speak in complete sentences and symmetric chest movement Cardio regular rate, regular rhythm, S1 normal heart sound and S2 normal heart sound GI normal to inspection, nondistended, normoactive bowel sounds, soft to palpation and non-tender Extremity normal to inspection, full ROM and no clubbing, cyanosis or edema Peripheral Pulses: Yes pulses 2+ throughout Skin no rashes or lesions noted and skin turgor normal Neuro moves all extremities, no focal motor deficits and no sensory deficits noted Sensorium / Orientation: awake and alert Psych Attitude: uncooperative Activity / Motor Behavior: hyperactive and restless Speech: incoherent Mood & Affect: anxious Thought Process: incoherent and disorganized Assessment & Plan Assessment/Plan (1) NSTEMI, initial episode of care: (2) Schizophrenia: QUALIFIERS: Schizophrenia type: unspecified Qualified Code(s): F20.9 - Schizophrenia, unspecified PLAN: 1. NSTEMI -Cardiac enzymes trending down -Echocardiogram complete, report pending -Cardiology following, recommends continuing medical management including aspirin, beta-blockers, statins as well as possible nitrates and antiplatelets -Patient continues to be in normal sinus rhythm 2. Hyperlipidemia -Continue atorvastatin 3. Hypertension -Continue Lasix, losartan, metoprolol 4. Schizophrenia -Continue as appropriate as well, Depakote, Haldol, Ativan, and ziprasidone, trazodone -Depakote level within normal limits 5. hypothyroidism -Continue levothyroxine -TSH and T4 within normal limits DVT prophylaxis-subcu Lovenox This patient was seen by MIRNA Rodriguez under the supervision of Dr. Park. 10 minutes spent in clinical coordination of patient's plan of care.
--- NOTE | 2021-09-24 12:06 | CASEMGMT ---
IMAN faxed updates to [facility]. IMAN called [facility] and it is fine for patient to return when he is ready. IMAN also called patient's brother Umang and confirmed the plan is to return to [facility]. Plan: d/c back to [facility] when ready. Debra Hernandez [employer]
[2021-09-24 13:04] LABS: Pathologist Review Reviewed
--- NOTE | 2021-09-24 13:16 | PCM.TXEXTCAR ---
Diet 09/24/21 11:18 Diet: Cardiac - Heart Healthy Is pt able to select menu?: No Routine Orders/Code Status Enema Type: Fleetz Enema Frequency: Daily PRN Suppository Type: Dulcolax 10mg Suppository Frequency: Daily PRN Code Status: Full Code Suggestions for Active Care Change Position every (hours): 2 Times a day to sit in chair: 3 Problem/Diagnosis (1) NSTEMI, initial episode of care: Status: Acute (2) Schizophrenia: Status: Acute Allergies/Procedures Done in Hospital Allergies No Known Allergies Allergy (Verified 09/09/19 23:29) Procedures: 2-D Echocardiogram and EKG Type of Care/Length of Stay Estimated LOS: More Than 30 Days Type of Care Needed: Retirement/Assisted Living Rehab Potential: Fair Prognosis: Fair Additional Orders/Day of Discharge Day of Discharge: 09/24/21 Discharge Plan Admission Admit Date/Time: 09/23/21 23:50 Primary Reason for Your Visit: NSTEMI Attending Provider: Ad Park Primary Care Provider: Bernard Hankins Consulting Providers: Chong Herrera Discharge Orders/Prescriptions Prescriptions: New divalproex 250 mg Tablet,Delayed Release (Dr/Ec) 250 mg PO BIDCM Qty: 0 RF: 0 Continued aspirin 81 MG tablet 81 mg PO DAILY@0800 RF: 0 aripiprazole 20 MG tablet 20 mg PO DAILY RF: 0 aripiprazole 5 MG tablet 5 mg PO DAILY RF: 0 atorvastatin 80 MG tablet 80 mg PO DAILY RF: 0 lorazepam 1 MG tablet 1 mg PO Q6H PRN PRN (Reason: Agitation) RF: 0 lorazepam 1 MG tablet 1 mg PO BID RF: 0 divalproex 500 MG tablet extended release 24 hr 2,000 mg PO QHS RF: 0 ferrous sulfate 325 MG tablet 325 mg PO DAILY RF: 0 medroxyprogesterone 10 MG tablet 10 mg PO BID RF: 0 insulin glargine 100 UNIT/ML solution 30 unit SQ QHS RF: 0 haloperidol 5 MG tablet 5 mg PO Q6H PRN PRN (Reason: Agitation) RF: 0 haloperidol 5 MG tablet 5 mg PO TID RF: 0 trazodone 100 MG tablet 100 mg PO QHS RF: 0 levothyroxine 50 MCG tablet 50 mcg PO DAILY RF: 0 metformin 1,000 MG tablet 1,000 mg PO BID RF: 0 metoprolol tartrate 50 MG tablet 50 mg PO BID RF: 0 insulin lispro 100 UNIT/ML cartridge 10 unit SQ TID RF: 0 cholecalciferol (vitamin D3) 2,000 UNIT capsule 2,000 unit PO DAILY RF: 0 furosemide 40 MG tablet 40 mg PO DAILY Qty: 0 RF: 0 albuterol sulfate 0.63 mg/3 mL solution for nebulization 0.63 mg inhalation Q4H PRN PRN (Reason: Wheezing) RF: 0 losartan 100 mg tablet 100 mg PO DAILY RF: 0 magnesium hydroxide [Milk of Magnesia] 400 mg/5 mL Suspension 30 ml PO DAILY PRN (Reason: Constipation) RF: 0 alum-mag hydroxide-simeth [Mylanta Maximum Strength] 400-400-40 mg/5 mL Suspension 15 ml PO Q4H PRN (Reason: heartburn/indigestion) RF: 0 nicotine (polacrilex) 2 mg Lozenge 2 mg BUCCAL Q2H PRN (Reason: smoking alternative) RF: 0 Trulicity 4.5 mg/0.5 mL Pen Injector 4.5 mg SUBCUT QWEEK RF: 0 Discontinued divalproex 250 MG tablet,delayed release (DR/EC) 250 mg PO BID RF: 0 Referrals / Follow Up: Bernard Hankins MD [Primary Care Provider] - Disposition Disposition (needs filled in before D/C Order can be placed): NonSkilled NH/Intermed Care
--- NOTE | 2021-09-24 13:24 | PCM.DC.SUM ---
Documented by User: MIRNA Rodriguez 09/24/21 13:32 Providers Date of Admission: 09/23/21 Primary Care Physician: Dr. Bernard Hankins MD Consultations 09/24/21 01:25 Consult: Cardiology Routine Consulting Provider: Chong Herrera Reason for Consult: NSTEMI EMERGENT Consult: No MD Notified: Yes Date Notified: 09/24/21 Time Notified: 00:56 Method of Notification: called per ED. Reason For Visit: ENCEPHALOPATHY, NSTEMI, N/V Diagnosis Discharge Diagnosis (1) NSTEMI, initial episode of care: Status: Acute Code(s): I21.4 - Non-ST elevation (NSTEMI) myocardial infarction (2) Schizophrenia: Status: Acute Code(s): F20.9 - Schizophrenia, unspecified Qualifiers: Schizophrenia type: unspecified Qualified Code(s): F20.9 - Schizophrenia, unspecified Medications at Discharge Home Medications aripiprazole 5 mg PO DAILY 07/25/19 aripiprazole 20 mg PO DAILY 07/25/19 aspirin 81 mg PO DAILY@0800 07/25/19 atorvastatin 80 mg PO DAILY 07/25/19 cholecalciferol (vitamin D3) 2,000 unit PO DAILY 07/25/19 divalproex 2,000 mg PO QHS 07/25/19 ferrous sulfate 325 mg PO DAILY 07/25/19 haloperidol 5 mg PO Q6H PRN PRN 07/25/19 haloperidol 5 mg PO TID 07/25/19 insulin glargine 30 unit SQ QHS 07/25/19 insulin lispro 10 unit SQ TID 07/25/19 levothyroxine 50 mcg PO DAILY 07/25/19 lorazepam 1 mg PO BID 07/25/19 lorazepam 1 mg PO Q6H PRN PRN 07/25/19 medroxyprogesterone 10 mg PO BID 07/25/19 metformin 1,000 mg PO BID 07/25/19 metoprolol tartrate 50 mg PO BID 07/25/19 trazodone 100 mg PO QHS 07/25/19 furosemide 40 mg PO DAILY #0 07/27/19 albuterol sulfate 0.63 mg INHALATION Q4H PRN PRN 09/23/21 losartan 100 mg PO DAILY 09/23/21 Trulicity 4.5 mg SUBCUT QWEEK 09/24/21 alum-mag hydroxide-simeth [Mylanta Maximum Strength] 15 ml PO Q4H PRN 09/24/21 divalproex 250 mg PO BIDCM #0 tab 09/24/21 magnesium hydroxide [Milk of Magnesia] 30 ml PO DAILY PRN 09/24/21 nicotine (polacrilex) 2 mg BUCCAL Q2H PRN 09/24/21 Hospital Course Operations None Procedures 2-D Echocardiogram and EKG Summary of Care Provided Hospital Course: Patient is a 61-year-old male who initially presented with altered mental status. Patient has a history of schizophrenia and currently resides in a psychiatric care facility. Patient was noted to be acting different than his norm and was also noted to be lethargic. Nurses at the facility were concerned and so patient was sent to ER for evaluation. Patient was noted to have elevated troponin upon admission and an echocardiogram was ordered. Echocardiogram demonstrates EF 65%. Patient was seen by cardiology who recommends continued medical management at this time. Patient will return to nursing facility today as patient is stable. Physical Exam Const alert and no apparent distress Orientation / Consciousness: confused and disoriented HEENT head/scalp atraumatic and moist oral mucous membranes Eyes conjunctivae normal and no scleral icterus Neck supple General: normal visual inspection and trachea midline Resp normal respiratory effort, normal air movement and clear to auscultation bilaterally Effort and Inspection: able to speak in complete sentences and symmetric chest movement Cardio regular rate, regular rhythm, S1 normal heart sound and S2 normal heart sound GI normal to inspection, nondistended, normoactive bowel sounds, soft to palpation and non-tender Extremity normal to inspection, full ROM and no clubbing, cyanosis or edema Skin no rashes or lesions noted and skin turgor normal Neuro moves all extremities, no focal motor deficits and no sensory deficits noted Sensorium / Orientation: awake and alert Psych Attitude: uncooperative Activity / Motor Behavior: hyperactive and restless Speech: incoherent Mood & Affect: anxious Thought Process: incoherent and disorganized Weight / BMI Weight Weight: 210 lb 8.663 oz Body Mass Index (BMI) 28.5 ABG / Lab / Microbiology Data Result Diagrams: 09/24/21 04:48 09/24/21 04:48 Laboratory: Laboratory Results - last 24 hr 09/23/21 22:20: WBC 12.6 H, RBC 3.68 L, Hgb 10.7 L, Hct 33.3 L, MCV 90.5, MCH 29.1, MCHC 32.1, RDW Std Deviation 47.8 H, RDW Coeff of Saman 14.5, Plt Count 304, MPV 11.6, Immature Gran % (Auto) 0.600, Neut % (Auto) 73.6 H, Lymph % (Auto) 12.0 L, [place] % (Auto) 13.1 H, Eos % (Auto) 0.5, Baso % (Auto) 0.2, Absolute Neuts (auto) 9.3 H, Absolute Lymphs (auto) 1.51, Nucleated RBC % 0, Differential Comment SCANNED, Diff Path Review Reviewed 09/23/21 22:20: Sodium 140, Potassium 4.5, Chloride 106, Carbon Dioxide 29.0, Anion Gap 5, BUN 37 H, Creatinine 1.55 H, Estim Creat Clear Calc 53.54, Est GFR (MDRD) Af Amer 59 L, Est GFR (MDRD) Non-Af 48 L, BUN/Creatinine Ratio 23.9 H, Glucose 96, Calcium 8.8, Total Bilirubin 0.30, AST 14 L, ALT 21, Alkaline Phosphatase 65, Troponin I High Sens 293 H*, Total Protein 6.4, Albumin 2.4 L, Globulin 4.0, Albumin/Globulin Ratio 0.6 L, Lipase 39 L 09/23/21 22:20: Ammonia 21.0 09/23/21 22:20: Lactic Acid 1.9 09/23/21 22:20: Valproic Acid 97 09/23/21 22:20: B-Natriuretic Peptide 20.7 09/23/21 22:30: Urine Color Yellow, Urine Clarity Clear, Urine pH 7.0, Ur Specific [place] 1.010, Urine Protein 100 H, Urine Glucose (UA) Normal, Urine Ketones Negative, Urine Occult Blood Negative, Urine Nitrite Negative, Urine Bilirubin Negative, Urine Urobilinogen 4 H, Ur Leukocyte Esterase Negative, Urine RBC 0 SEEN, Urine WBC 0 SEEN, Ur Squamous Epith Cells 0 SEEN, Urine Bacteria 0 SEEN, Urine Mucus 0 SEEN 09/24/21 01:31: Magnesium 1.9, Troponin I High Sens 320 H* 09/24/21 01:34: POC Glucose 42 L* 09/24/21 02:21: POC Glucose 150 H 09/24/21 04:48: Sodium 143, Potassium 4.6, Chloride 110 H, Carbon Dioxide 25.0, Anion Gap 8, BUN 31 H, Creatinine 1.30, Estim Creat Clear Calc 63.84, Est GFR (MDRD) Af Amer 72, Est GFR (MDRD) Non-Af 59 L, BUN/Creatinine Ratio 23.8 H, Glucose 72 L, Calcium 8.6, Total Bilirubin 0.20, AST 16, ALT 20, Alkaline Phosphatase 68, Troponin I High Sens 296 H*, Total Protein 6.1 L, Albumin 2.1 L, Globulin 4.0, Albumin/Globulin Ratio 0.5 L, Triglycerides 45, Cholesterol 103, LDL Cholesterol 49, VLDL Cholesterol 9, HDL Cholesterol 45, TSH 1.41, Free T4 1.36 09/24/21 04:48: WBC 13.3 H, RBC 3.78 L, Hgb 11.0 L, Hct 33.8 L, MCV 89.4, MCH 29.1, MCHC 32.5, RDW Std Deviation 47.8 H, RDW Coeff of Saman 14.6, Plt Count 298, MPV 11.8, Immature Gran % (Auto) 0.500, Neut % (Auto) 74.4 H, Lymph % (Auto) 15.5 L, [place] % (Auto) 9.2, Eos % (Auto) 0.2, Baso % (Auto) 0.2, Absolute Neuts (auto) 9.9 H, Absolute Lymphs (auto) 2.07, Nucleated RBC % 0 09/24/21 05:43: POC Glucose 52 L 09/24/21 06:27: POC Glucose 132 H 09/24/21 10:40: POC Glucose 121 H Microbiology: Microbiology 09/23/21 22:12 Nasal Secretion SARS-CoV-2 Antigen (Rapid) - Final Radiography Diagnostic Testing: Radiology Impression Brain CT 09/23/21 21:58 IMPRESSION: No acute intracranial abnormality. Chronic involutional and ischemic changes of the brain. Electronically Signed: Leo Norman MD at 23:37 EST Tel , Service support , Chest X-Ray 09/23/21 22:45 IMPRESSION: Subtle streaky opacities in the left lung base could represent atelectasis versus infection in the correct clinical setting. Electronically Signed: Leo Norman MD at 23:38 EST Tel , Service support , Echocardiogram 09/24/21 01:25 Interpretation Summary The study was technically difficult. The study was technically limited. Based upon the 2D echocardiographic images obtained there appears to be grossly normal left ventricular size, wall motion, and systolic function. The estimated ejection fraction is 65 %. Mild concentric left ventricular hypertrophy. There is mild mitral annular calcification. Extension of the mitral annular calcification onto the base of the posterior mitral valve leaflet. Trivial mitral valve insufficiency. Trivial tricuspid valve insufficiency. Unable to estimate RV systolic pressure/pulmonary artery pressure due to technically difficult study. Unable to assess diastolic dysfunction. Ordering Physician: Angelina Campbell Referring Physician: BERNARD HANKINS Performed By: Rema Hu, MELCS, RVT Chest X-Ray 09/24/21 05:55 IMPRESSION: New infiltrate in the right lung base and stable infiltrate in the left lung base are worrisome for pneumonia. Electronically Signed: Lizandro Baltazar MD at 6:37 EST Tel , Service support , D/C Instructions Discharge Diet: Low fat / Low cholesterol Discharge Activity: Return to Normal Activity Call your doctor if you observe: Shortness of breath, Fainting spells, Swelling in the ankles, Chest pain and Increased palpitations (irregular heartbeat) Meaningful Use Info Meaningful Use Diagnoses (Choose all that apply): None applicable Discharge Plan Admission Admit Date/Time: 09/23/21 23:50 Primary Reason for Your Visit: NSTEMI Attending Provider: Ad Park Primary Care Provider: Bernard Hankins Consulting Providers: Chong Herrera Discharge Orders/Prescriptions Prescriptions: New divalproex 250 mg Tablet,Delayed Release (Dr/Ec) 250 mg PO BIDCM Qty: 0 RF: 0 Continued aspirin 81 MG tablet 81 mg PO DAILY@0800 RF: 0 aripiprazole 20 MG tablet 20 mg PO DAILY RF: 0 aripiprazole 5 MG tablet 5 mg PO DAILY RF: 0 atorvastatin 80 MG tablet 80 mg PO DAILY RF: 0 lorazepam 1 MG tablet 1 mg PO Q6H PRN PRN (Reason: Agitation) RF: 0 lorazepam 1 MG tablet 1 mg PO BID RF: 0 divalproex 500 MG tablet extended release 24 hr 2,000 mg PO QHS RF: 0 ferrous sulfate 325 MG tablet 325 mg PO DAILY RF: 0 medroxyprogesterone 10 MG tablet 10 mg PO BID RF: 0 insulin glargine 100 UNIT/ML solution 30 unit SQ QHS RF: 0 haloperidol 5 MG tablet 5 mg PO Q6H PRN PRN (Reason: Agitation) RF: 0 haloperidol 5 MG tablet 5 mg PO TID RF: 0 trazodone 100 MG tablet 100 mg PO QHS RF: 0 levothyroxine 50 MCG tablet 50 mcg PO DAILY RF: 0 metformin 1,000 MG tablet 1,000 mg PO BID RF: 0 metoprolol tartrate 50 MG tablet 50 mg PO BID RF: 0 insulin lispro 100 UNIT/ML cartridge 10 unit SQ TID RF: 0 cholecalciferol (vitamin D3) 2,000 UNIT capsule 2,000 unit PO DAILY RF: 0 furosemide 40 MG tablet 40 mg PO DAILY Qty: 0 RF: 0 albuterol sulfate 0.63 mg/3 mL solution for nebulization 0.63 mg inhalation Q4H PRN PRN (Reason: Wheezing) RF: 0 losartan 100 mg tablet 100 mg PO DAILY RF: 0 magnesium hydroxide [Milk of Magnesia] 400 mg/5 mL Suspension 30 ml PO DAILY PRN (Reason: Constipation) RF: 0 alum-mag hydroxide-simeth [Mylanta Maximum Strength] 400-400-40 mg/5 mL Suspension 15 ml PO Q4H PRN (Reason: heartburn/indigestion) RF: 0 nicotine (polacrilex) 2 mg Lozenge 2 mg BUCCAL Q2H PRN (Reason: smoking alternative) RF: 0 Trulicity 4.5 mg/0.5 mL Pen Injector 4.5 mg SUBCUT QWEEK RF: 0 Discontinued divalproex 250 MG tablet,delayed release (DR/EC) 250 mg PO BID RF: 0 Referrals / Follow Up: Bernard Hankins MD [Primary Care Provider] - Disposition Disposition (needs filled in before D/C Order can be placed): NonSkilled NH/Intermed Care Documented by User: Dr. Ad Park MD 09/24/21 13:39 Providers Date of Admission: 09/23/21 Reason For Visit: ENCEPHALOPATHY, NSTEMI, N/V Medications at Discharge Home Medications aripiprazole 5 mg PO DAILY 07/25/19 aripiprazole 20 mg PO DAILY 07/25/19 aspirin 81 mg PO DAILY@0800 07/25/19 atorvastatin 80 mg PO DAILY 07/25/19 cholecalciferol (vitamin D3) 2,000 unit PO DAILY 07/25/19 divalproex 2,000 mg PO QHS 07/25/19 ferrous sulfate 325 mg PO DAILY 07/25/19 haloperidol 5 mg PO Q6H PRN PRN 07/25/19 haloperidol 5 mg PO TID 07/25/19 insulin glargine 30 unit SQ QHS 07/25/19 insulin lispro 10 unit SQ TID 07/25/19 levothyroxine 50 mcg PO DAILY 07/25/19 lorazepam 1 mg PO BID 07/25/19 lorazepam 1 mg PO Q6H PRN PRN 07/25/19 medroxyprogesterone 10 mg PO BID 07/25/19 metformin 1,000 mg PO BID 07/25/19 metoprolol tartrate 50 mg PO BID 07/25/19 trazodone 100 mg PO QHS 07/25/19 furosemide 40 mg PO DAILY #0 07/27/19 albuterol sulfate 0.63 mg INHALATION Q4H PRN PRN 09/23/21 losartan 100 mg PO DAILY 09/23/21 Trulicity 4.5 mg SUBCUT QWEEK 09/24/21 alum-mag hydroxide-simeth [Mylanta Maximum Strength] 15 ml PO Q4H PRN 09/24/21 divalproex 250 mg PO BIDCM #0 tab 09/24/21 magnesium hydroxide [Milk of Magnesia] 30 ml PO DAILY PRN 09/24/21 nicotine (polacrilex) 2 mg BUCCAL Q2H PRN 09/24/21 Hospital Course Operations None Summary of Care Provided Minutes Spent on Discharge: 35 Hospital Course: This patient was seen in conjunction with MIRNA Rodriguez . I have independently interviewed and examined the patient and reviewed pertinent historical, laboratory, and other data. Please refer to MIRNA Rodriguez note for details of this patient's presentation, findings, and recommendations. I have reviewed MIRNA Rodriguez note and concur with documented findings. In brief, patient is a 61-year-old gentleman with underlying history of schizophrenia [facility] who was brought to the emergency department with acute delirium. Patient was found to have slightly elevated troponin admitted to a monitored bed as a case of non-STEMI. Patient was seen in consultation by cardiology recommended optimization of medical therapy. Echo done did not show any regional wall motion abnormalities. Patient was discharged back to his [facility] Hospital course; as documented above Total time spent on entire discharge process 35 minutes (20 of which was spent by me and 15 by MIRNA Rodriguez) Physical Examination: Assessment: Recommendations: 1. I have discussed the results of my overview and impressions with the patient 2. Options for management were reviewed ABG / Lab / Microbiology Data Result Diagrams: 09/24/21 04:48 09/24/21 04:48 Discharge Plan Admission Admit Date/Time: 09/23/21 23:50 Primary Reason for Your Visit: NSTEMI Attending Provider: Ad Park Primary Care Provider: Bernard Hankins Consulting Providers: Chong Herrera Discharge Orders/Prescriptions Prescriptions: New divalproex 250 mg Tablet,Delayed Release (Dr/Ec) 250 mg PO BIDCM Qty: 0 RF: 0 Continued aspirin 81 MG tablet 81 mg PO DAILY@0800 RF: 0 aripiprazole 20 MG tablet 20 mg PO DAILY RF: 0 aripiprazole 5 MG tablet 5 mg PO DAILY RF: 0 atorvastatin 80 MG tablet 80 mg PO DAILY RF: 0 lorazepam 1 MG tablet 1 mg PO Q6H PRN PRN (Reason: Agitation) RF: 0 lorazepam 1 MG tablet 1 mg PO BID RF: 0 divalproex 500 MG tablet extended release 24 hr 2,000 mg PO QHS RF: 0 ferrous sulfate 325 MG tablet 325 mg PO DAILY RF: 0 medroxyprogesterone 10 MG tablet 10 mg PO BID RF: 0 insulin glargine 100 UNIT/ML solution 30 unit SQ QHS RF: 0 haloperidol 5 MG tablet 5 mg PO Q6H PRN PRN (Reason: Agitation) RF: 0 haloperidol 5 MG tablet 5 mg PO TID RF: 0 trazodone 100 MG tablet 100 mg PO QHS RF: 0 levothyroxine 50 MCG tablet 50 mcg PO DAILY RF: 0 metformin 1,000 MG tablet 1,000 mg PO BID RF: 0 metoprolol tartrate 50 MG tablet 50 mg PO BID RF: 0 insulin lispro 100 UNIT/ML cartridge 10 unit SQ TID RF: 0 cholecalciferol (vitamin D3) 2,000 UNIT capsule 2,000 unit PO DAILY RF: 0 furosemide 40 MG tablet 40 mg PO DAILY Qty: 0 RF: 0 albuterol sulfate 0.63 mg/3 mL solution for nebulization 0.63 mg inhalation Q4H PRN PRN (Reason: Wheezing) RF: 0 losartan 100 mg tablet 100 mg PO DAILY RF: 0 magnesium hydroxide [Milk of Magnesia] 400 mg/5 mL Suspension 30 ml PO DAILY PRN (Reason: Constipation) RF: 0 alum-mag hydroxide-simeth [Mylanta Maximum Strength] 400-400-40 mg/5 mL Suspension 15 ml PO Q4H PRN (Reason: heartburn/indigestion) RF: 0 nicotine (polacrilex) 2 mg Lozenge 2 mg BUCCAL Q2H PRN (Reason: smoking alternative) RF: 0 Trulicity 4.5 mg/0.5 mL Pen Injector 4.5 mg SUBCUT QWEEK RF: 0 Discontinued divalproex 250 MG tablet,delayed release (DR/EC) 250 mg PO BID RF: 0 Referrals / Follow Up: Bernard Hankins MD [Primary Care Provider] - Disposition Disposition (needs filled in before D/C Order can be placed): NonSkilled NH/Intermed Care Charges/Coding Visit Charges OBSV E&M: 74054 Observation care discharge Hospital Course Imaging Results Imaging Results: 09/24/21 05:55 Chest 1 View (Portable) [RAD] AM (NON MEDS) Consultations Consultations: Consultations 09/24/21 01:25 Consult: Cardiology Routine Consulting Provider: Chong Herrera Reason for Consult: NSTEMI EMERGENT Consult: No MD Notified: Yes Date Notified: 09/24/21 Time Notified: 00:56 Method of Notification: called per ED. Operations None
--- NOTE | 2021-09-24 13:51 | NURSING ---
Called report to [facility], spoke with Mabel. Pt to return to [facility] today, 09/24
--- NOTE | 2021-09-24 14:18 | CASEMGMT ---
Patient is being transported back to [facility]. SW faxed orders to [facility]. SW called [facility] and they were already aware as the RN called report. [place] arranged for patient to get picked up at 4p via cot. Plan: d/c back to [facility] under intermediate level of care. [facility] transported via cot. Debra LIAO
== END 2021-09-24 16:17 | DRG 281 ==
LOC: ED 09-24 00:05 → PCU 09-24 00:44
PROVIDERS: Admitting Provider Family Medicine; Emergency Provider Emergency Medicine; PCP Family Medicine; Visit Provider Internal Medicine
DX: I21.4 Non-ST elevation (NSTEMI) myocardial infarction (principal); G93.40 Encephalopathy, unspecified; I13.0 Hypertensive heart and chronic kidney disease with heart failure and stage 1 through stage 4 chronic kidney disease, or unspecified chronic kidney disease; E11.649 Type 2 diabetes mellitus with hypoglycemia without coma; E11.22 Type 2 diabetes mellitus with diabetic chronic kidney disease; D50.9 Iron deficiency anemia, unspecified; E03.9 Hypothyroidism, unspecified; E78.5 Hyperlipidemia, unspecified; I50.9 Heart failure, unspecified; F20.9 Schizophrenia, unspecified; Z79.4 Long term (current) use of insulin; N18.30 Chronic kidney disease, stage 3 unspecified; F41.9 Anxiety disorder, unspecified; F17.210 Nicotine dependence, cigarettes, uncomplicated; F32.A Depression, unspecified; Z79.82 Long term (current) use of aspirin; Z20.822 Contact with and (suspected) exposure to COVID-19; I49.3 Ventricular premature depolarization; Z79.890 Hormone replacement therapy
CPT/HCPCS: 36415; 70450; 71045; 80053; 80061; 80164; 81001; 82140; 82962; 83605; 83690; 83735; 83880; 84439; 84443; 84484; 85025; 87426; 93005; 93306; 97802; 99251; 99285; J7030; P9612; A4216; G0463

== ENCOUNTER → 2022-02-26 | Outpatient (REF) | payer SELFPAY | END | disposition home or self-care (01) | LOC: OLS.AHA 03:40 | PROVIDERS: PCP Family Medicine; Visit Provider Family Medicine | DX: E72.20 Disorder of urea cycle metabolism, unspecified (principal) | CPT/HCPCS: 82140 ==

== ENCOUNTER 2022-07-21 21:15 | Inpatient (IN) | payer MEDICARE, MEDICAID, SELFPAY ==
[2022-07-21 21:18] VITALS: BP 154/82; PULSE 91; RESP 17; TEMP 36.4; O2SAT 100; BMI 31.4
--- NOTE | 2022-07-21 22:19 | CT_ITS ---
We are attempting to reach an attending provider to discuss findings. An addendum with communication details will be sent when the communication is complete. EXAM: CT HEAD WITHOUT INTRAVENOUS CONTRAST CLINICAL INDICATION: ams TECHNIQUE: Multiple axial images were obtained of the head without intravenous contrast. This CT exam was performed using one or more of the following dose reduction techniques: automated exposure control, adjustment of the mA and/or kV according to patient size, and/or use of iterative reconstruction technique. This report was created using [facility] report [employer] technology. COMPARISON: None. FINDINGS: BRAIN AND EXTRA-AXIAL SPACES: Moderate generalized atrophy. Moderate low density bilaterally in the deep white matter. No intra- or extra-axial hemorrhage. No evidence of acute infarct. No intracranial mass or mass effect. There is preservation of the lutz/white matter interface. Posterior fossa structures are unremarkable. No hydrocephalus. Basal cisterns are patent. BONES/JOINTS: Unremarkable. No discrete lytic or blastic abnormalities. SINUSES: Mucosal thickening bilateral maxillary and ethmoid sinuses. MASTOID AIR CELLS: Unremarkable. Clear. ORBITS: Visualized globes, extraocular muscles, optic nerves and retrobulbar fat appear unremarkable. CT/STROKE Brain/Head without Cont IMPRESSION: 1. Moderate generalized atrophy. Moderate low density bilaterally in the deep white matter. This likely represents small vessel ischemic changes in the deep white matter. 2. Mucosal thickening bilateral maxillary and ethmoid sinuses. ASSESSMENT: ASPECTS ([place]oselyn Stroke Program Early CT Score) is 10. Electronically Signed: Tano Martin MD at 23:03 [facility] ,
--- NOTE | 2022-07-21 22:19 | EKG12_ITS ---
Test Reason : EXAM Blood Pressure : / mmHG Vent. Rate : 087 BPM Atrial Rate : 087 BPM P-R Int : 146 ms QRS Dur : 080 ms QT Int : 356 ms P-R-T Axes : 053 060 052 degrees QTc Int : 428 ms Sinus rhythm with Premature supraventricular complexes Otherwise normal ECG Confirmed by BENEDICT JADE, OLIVER ([id number]), technical editor TYRONE SANTIAGO ([id number]) on 07/27/2022 9:33:53 A M Referred By: Confirmed By:GABRIELLE MCMULLEN MD
--- NOTE | 2022-07-21 22:20 | EDS_ITS ---
HPI History of Present Illness Chief Complaint: Weakness Narrative Narrative: 61-year-old male with history of hypertension, schizophrenia, hyperlipidemia, chronic anemia, CKD, hypothyroidism, type 2 diabetes presenting from a behavioral health facility due to mental status change. Person accompanying him stated that he is cried out in pain at about 3:00 and since that time he has been generally weak and tired. She states he seems worn out. She states that his blood pressure was elevated earlier and that his heart rate was a little fast. She states he does not have a history of atrial fibrillation. Patient is hard of hearing but is answering questions appropriately. Patient's caregiver states that the last time he acted like this he had a heart attack. She is not actually sure when this was. She states it was a hot minute. Patient reports no pain currently. She states that he seems to be slumped over to the right. She states at baseline usually has to be wheeled around in a wheelchair. He is not had any falls. She also states that she does not exactly know where his pain was. PFSH PFS Social History Smoking Status: Current every day smoker tobacco type: cigarettes ROS ROS ED Constitutional Constitutional ED: Denies chills or fever(s) Eyes Eyes: Denies change in vision or diplopia ENT ENT ED: Denies rhinorrhea or sore throat EXAM Physical Exam Const Vital Signs: 07/21/22 21:18 07/21/22 21:23 07/21/22 22:21 Temperature 97.5 F L Temperature Source Temporal Pulse Rate 91 Respiratory Rate 17 Respiratory Effort Normal Respiratory Pattern Normal Blood Pressure 154/82 H Blood Pressure Mean 106 Pulse Ox 100 Oxygen Delivery Method Room Air Room Air Positive well nourished General Appearance ED: NAD; Negative for pallor HEENT Reports moist mucous membranes Negative for trauma Eyes PERRL and EOMs intact bilaterally Chest Wall inspection of chest normal and palpation of chest normal Resp normal respiratory effort Cardio regular rate and regular rhythm GI normal to inspection, nondistended, normoactive bowel sounds Extremity General Extremety ED: Yes edema; Negative for tenderness General Extremity: edema Neuro CN's II-XII intact bilaterally Sensorium / Orientation: alert Skin no rashes or lesions noted and no wounds General Skin Exam: Negative for jaundice or pallor MDM MDM MDM Narrative Medical decision making narrative: Patient presenting with generalized weakness, altered mental status with concern for his pain that happened earlier at about 3 PM. He was specifically brought into make sure he did not have anything cardiac happening. EKG obtained and on my interpretation shows a sinus rhythm with a ventricular rate of [address] elevations or depressions. Patient reports no pain currently. CBC shows a normal white blood cell count 8.6. Hemoglobin is 10.2. This is near the patient's baseline. Creatinine slightly elevated 1.6. Patient was given a liter normal saline. Electrolytes unremarkable. High-sensitivity troponin came back at 570. Depakote level within normal limits. BNP normal. Chest x-ray on my interpretation shows no acute cardiopulmonary process and radiologist agree. CT of the brain was obtained due to the patient's altered mental status and this is interpreted as normal. There are senescent changes per the radiologist. Given patient's elevated troponin patient will be admitted to the hospital for further evaluation. Patient was started on heparin drip in the ED. 324 mg of aspirin was given. Impression: 1. NSTEMI 2. Altered mental status 3. Acute on chronic kidney disease 4. Anemia Lab Data Attestation: I reviewed the patient's lab results. Labs: Laboratory Results - last 24 hr 07/21/22 07/21/22 07/21/22 22:26 22:26 22:26 WBC 8.6 RBC 3.58 L Hgb 10.2 L Hct 32.8 L MCV 91.6 MCH 28.5 MCHC 31.1 L RDW Std Deviation 52.2 H RDW Coeff of Saman 15.6 H Plt Count 339 MPV 11.6 Immature Gran % (Auto) 0.300 Neut % (Auto) 54.7 Lymph % (Auto) 22.2 Dickey % (Auto) 11.7 H Eos % (Auto) 10.8 H Baso % (Auto) 0.3 Absolute Neuts (auto) 4.7 Absolute Lymphs (auto) 1.92 Nucleated RBC % 0 Sodium 140 Potassium 4.5 Chloride 109 H Carbon Dioxide 28.0 Anion Gap 3 L BUN 31 H Creatinine 1.60 H Estim Creat Clear Calc 51.87 Est GFR (MDRD) Af Amer 56 L Est GFR (MDRD) Non-Af 47 L BUN/Creatinine Ratio 19.4 Glucose 165 H Calcium 8.9 Troponin I High Sens 570 H* B-Natriuretic Peptide Valproic Acid 93 07/21/22 22:26 WBC RBC Hgb Hct MCV MCH MCHC RDW Std Deviation RDW Coeff of Saman Plt Count MPV Immature Gran % (Auto) Neut % (Auto) Lymph % (Auto) Dickey % (Auto) Eos % (Auto) Baso % (Auto) Absolute Neuts (auto) Absolute Lymphs (auto) Nucleated RBC % Sodium Potassium Chloride Carbon Dioxide Anion Gap BUN Creatinine Estim Creat Clear Calc Est GFR (MDRD) Af Amer Est GFR (MDRD) Non-Af BUN/Creatinine Ratio Glucose Calcium Troponin I High Sens B-Natriuretic Peptide 98.5 Valproic Acid Radiography Diagnostic Testing: Clinical Impression(s) from Imaging Studies Brain CT 07/21/22 22:19 IMPRESSION: 1. Moderate generalized atrophy. Moderate low density bilaterally in the deep white matter. This likely represents small vessel ischemic changes in the deep white matter. 2. Mucosal thickening bilateral maxillary and ethmoid sinuses. ASSESSMENT: ASPECTS ([place] Stroke Program Early CT Score) is 10. Electronically Signed: Tano Martin MD at 23:03 EST , ADDENDUM: 07/21/22 2312 IMPRESSION: 1. Moderate generalized atrophy. Moderate low density bilaterally in the deep white matter. This likely represents small vessel ischemic changes in the deep white matter. 2. Mucosal thickening bilateral maxillary and ethmoid sinuses. ASSESSMENT: ASPECTS ([place] Stroke Program Early CT Score) is 10. N.B. : The above Results were Read Back by Tano Martin MD to Dr. Keagan Bustos, AA, and understanding confirmed on 07/21/2022 23:05:21 (ET). Electronically Signed: Tano Martin MD at 23:03 EST , Chest X-Ray 07/21/22 22:43 IMPRESSION: No radiographic evidence of acute cardiopulmonary disease. Electronically Signed: Tano Martin MD at 22:53 EST Reading Location ID and State: [employer] / [place] Tel , Service support , Discharge Plan Triage Chief Complaint: Weakness ED Provider: Keagan Bustos Dx/Rx/DC Orders Primary Care Provider: Bernard Hankins Referrals: Bernard Hankins MD [Primary Care Provider] -
--- NOTE | 2022-07-21 22:43 | RAD_ITS ---
EXAM: XR CHEST, 1 VIEW CLINICAL INDICATION: chest pain TECHNIQUE: Frontal view of the chest. This report was created using [employer] report generation technology. COMPARISON: None. FINDINGS: LUNGS AND PLEURAL SPACES: Unremarkable. No consolidation or edema. No pneumothorax. No effusion. HEART: Unremarkable. Cardiac silhouette not enlarged. MEDIASTINUM: Central airways and mediastinal contour are unremarkable. BONES/JOINTS: Unremarkable. SOFT TISSUES: Unremarkable. RAD/Chest 1 View (Portable) IMPRESSION: No radiographic evidence of acute cardiopulmonary disease. Electronically Signed: Tano Martin MD at 22:53 EST ,
[2022-07-21 22:50] LABS: Absolute Lymphocyte Count 1.92 X10^3/uL (0.83-4.51); Absolute Neutrophil Count 4.7 X10^3/uL (2.0-7.7); Basophil# 0.03 X10^3/uL; Basophil% 0.3 % (0-1); Eosinophil# 0.93 X10^3/uL; Eosinophils% 10.8 % (0-5); Hematocrit 32.8 % (40-54); Hemoglobin 10.2 g/dL (13.0-16.5); Lymphocyte # 1.92 X10^3/ul (0.83-4.51); Lymphocyte % 22.2 % (19-41); Mean Corp Hgb Conc 31.1 g/dL (32-36); Mean Corpuscular Hgb 28.5 pg (27.0-32.0); Mean Corpuscular Volume 91.6 fL (80-94); Mean Platelet Vol. 11.6 fl (6.2-12.0); Monocyte# 1.01 X10^3/uL; Monocyte% 11.7 % (0-10); NRBC Flagged by Analyzer 0 % (0-5); Neutrophil # 4.72 X10^3/uL (2.7-7.7); Neutrophil % 54.7 % (47-70); Platelet Count 339 K/mm3 (150-450); RBC Distribution Width CV 15.6 % (11.6-14.6); RBC Distribution Width SD 52.2 fl (35.1-43.9); Red Blood Count 3.58 M/mm3 (4.6-6.2); White Blood Count 8.6 K/mm3 (4.4-11.0)
[2022-07-21 23:08] LABS: BNP,B-Type NATRIURETIC PEPTIDE 98.5 pg/mL (0-100)
[2022-07-21 23:10] LABS: Valproic Acid (Depakene) Level 93 ug/mL (50-100)
[2022-07-21 23:24] LABS: Anion Gap 3 (5-15); BUN 31 mg/dL (7-18); BUN/Creat Ratio 19.4 RATIO (10-20); Calcium,Total 8.9 mg/dL (8.5-10.1); Chloride 109 mmol/L (98-107); EST Glomerular Filtration Rate 47 mL/min (>60); Est Glom Filt Rate - Afr Amer 56 mL/min (>60); Estimated Creatinine Clearance 51.87 ml/min; Glucose 165 mg/dL (74-106); Potassium 4.5 mmol/L (3.5-5.1); Sodium Level 140 mmol/L (136-145); Troponin-I HS (w/2H Reflex) 570 pg/mL (3.0-78.0)
[2022-07-21] MEDS: 0.9% Normal Saline 1,000 ML 999 ML IV (23:53)
[2022-07-21] MEDS: Aspirin 81 MG TAB.CHEW 324 MG PO (23:55)
--- NOTE | 2022-07-21 23:55 | HP.PCM.HOS_ITS ---
HPI - General General Date of Admission: 07/21/22 Date of Service: 07/21/22 Chief Complaint: Fatigue, lethargy. HPI Narrative The patient is a 61 y/o M w/ PMHx: HTN, HLD, Schizophrenia, Chronic anemia/Fe deficiency, Hypothyroidism, Diabetes mellitus type II, Tobacco use, CKD stage III unclear subtype, prior admission w/ NSTEMI (09/2021 admission) who presides at a behavioral health SNF who presents to the [facility] ED on 07/21/22 with history of behavioral change at this facility reported to become more fatigued, lethargic, weak with complaint of pain approximately 3 PM on day of presentation with mildly increased heart rate above baseline with no other specific complaints per patient including no evidence of any fever, chills, nausea, emesis, complaints of dyspnea or chest pain however given atypical behavior prompted ED evaluation. Patient had presented similarly when he had his prior NSTEMI and was encephalopathic at that time as well but there was concern at that time for possible concurrent viral infection. Work-up in the ED included T97.5, heart rate 91, BP 154/82, respiratory rate 17, 100% on room air, CBC with WC 8.6, hemo globin 10.2, MCV 91.6, platelets 339 without marked shift, pending coags upon evaluation, BMP with chloride 109, BUN/creat 31/1.60, glucose 165, troponin initial 570, BNP 98.5, valproic acid level 93, chest x-ray with no acute cardiopulmonary findings, CT brain with moderate generalized atrophy with moderate low-density bilaterally in the deep white matter likely client service representative of small vessel ischemic changes, mucosal thickening bilaterally in the maxillary and ethmoid sinuses, EKG with sinus rhythm with nonspecific changes with no acute evidence of ischemia. In the ED patient administered full- strength aspirin therapy and initiated on heparin drip given NSTEMI presentation. [facility] Medical History Anxiety and depression Chronic anemia CKD (chronic kidney disease), stage III Diabetes mellitus, type 2 Fe deficiency anemia HLD (hyperlipidemia) HTN (hypertension) Hx of non-ST elevation myocardial infarction (NSTEMI) Hypothyroidism Schizophrenia Tobacco use Home Medications albuterol sulfate 0.63 mg/3 mL solution for nebulization 0.63 mg inhalation Q4H PRN Shortness Of Breath 07/21/22 [History Last Taken Unknown] aripiprazole 20 mg tablet (Abilify) 20 mg PO DAILY 07/21/22 [History Last Taken Unknown] aspirin 81 mg tablet 81 mg PO DAILY 07/21/22 [History Last Taken Unknown] atorvastatin 80 mg tablet 80 mg PO QHS 07/21/22 [History Last Taken Unknown] cholecalciferol (vitamin D3) 50 mcg (2,000 unit) tablet 50 mcg PO DAILY 07/21/22 [History Last Taken Unknown] divalproex 250 mg tablet,extended release 24 hr (Depakote ER) 250 mg PO BID 07/21/22 [History Last Taken Unknown] divalproex 500 mg tablet,extended release 24 hr (Depakote ER) 1,500 mg PO QHS 07/21/22 [History Last Taken Unknown] dulaglutide 3 mg/0.5 mL subcutaneous pen injector (Trulicity) 3 mg subcut QWEEK 07/21/22 [History Last Taken Unknown] ferrous sulfate 325 mg (65 mg iron) tablet 325 mg PO DAILY 07/21/22 [History Last Taken Unknown] furosemide 40 mg tablet (Lasix) 40 mg PO DAILY 07/21/22 [History Last Taken Unknown] haloperidol 2 mg tablet 2 mg PO TID 07/21/22 [History Last Taken Unknown] haloperidol 5 mg tablet 5 mg Q6H PRN PRN Agitation 07/21/22 [History Last Taken Unknown] insulin glargine 100 unit/mL subcutaneous cartridge 32 unit subcut QPM 07/21/22 [History Last Taken Unknown] insulin lispro 100 unit/mL subcutaneous cartridge (Humalog U-100 Insulin) 10 unit subcut TID 07/21/22 [History Last Taken Unknown] levothyroxine 50 mcg tablet 50 mcg PO DAILY 07/21/22 [History Last Taken Unknown] lorazepam 1 mg tablet (Ativan) 1 mg PO BID 07/21/22 [History Last Taken Unknown] lorazepam 1 mg tablet (Ativan) 1 mg Q6H PRN PRN agitation 07/21/22 [History Last Taken Unknown] losartan 100 mg tablet 100 mg PO DAILY 07/21/22 [History Last Taken Unknown] medroxyprogesterone 10 mg tablet (Provera) 10 mg BID 07/21/22 [History Last Taken Unknown] metformin 1,000 mg tablet 1,000 mg PO BID 07/21/22 [History Last Taken Unknown] metoprolol tartrate 50 mg tablet 50 mg PO BID 07/21/22 [History Last Taken Unknown] trazodone 100 mg tablet 100 mg PO QHS 07/21/22 [History Last Taken Unknown] Allergy/AdvReac Type Severity Reaction Status Date / Time No Known Allergies Allergy Verified 07/22/22 00:11 Family History other other (Patient with no marked paternal/maternal family history including HD, DM, CA.) Surgical History No history of previous surgery Social History (Updated 07/22/22 @ 00:[address] Angelina Campbell MD) household members: other details: Behavioral SNF. Smoking Status: Current every day smoker tobacco type: cigarettes alcohol intake: never substance use type: does not use ROS ROS Narrative Admission Review of Systems: CONSTITUTIONAL: No weight loss, fever, chills, + weakness or fatigue. HEENT: Eyes: No visual loss, blurred vision, double vision or yellow sclerae. Ears, Nose, Throat: No hearing loss, sneezing, congestion, runny nose or sore throat. SKIN: No rash or itching, lesions, wounds. CARDIOVASCULAR: No chest pain, chest pressure or chest discomfort, palpitations, edema, orthopnea, syncopal events. RESPIRATORY: No shortness of breath, cough or sputum, wheezing, hemoptysis. GASTROINTESTINAL: + anorexia, No nausea, emesis, diarrhea, abdominal pain, melena, BRBPR. GENITOURINARY: No dysuria, frequency, urgency or retention. NEUROLOGICAL: + Confusion/lethargy, seizure disorder, No headache, dizziness, syncope, paralysis, ataxia, numbness or tingling in the extremities, focal weakness, change in bowel or bladder control. MUSCULOSKELETAL: + muscle, back pain, joint pain or stiffness. HEMATOLOGIC: + anemia, bleeding or bruising. LYMPHATICS: No enlarged nodes. No history of splenectomy. PSYCHIATRIC: + history of depression or anxiety. ENDOCRINOLOGIC: No reports of sweating, cold or heat intolerance. No polyuria or polydipsia. ALLERGIES: No history of asthma, hives, eczema or rhinitis. Review of Systems ROS Unobtainable: due to encephalopathy Vital Signs Vital Signs Vital Signs: 07/21/22 21:18 07/21/22 21:23 07/21/22 22:21 Temperature 97.5 F L Temperature Source Temporal Pulse Rate 91 Respiratory Rate 17 Respiratory Effort Normal Respiratory Pattern Normal Blood Pressure 154/82 H Blood Pressure Mean 106 Pulse Ox 100 Oxygen Delivery Method Room Air Room Air Weight Weight: 231 lb 14.821 oz Body Mass Index (BMI) 31.4 Physical Exam Narrative Physical Examination: General: Awakens to stimuli, alert but falling back asleep quickly, oriented to self and was able to converse with a healthcare worker from his facility but she reports he is not quite at his baseline, significantly hard of hearing, cooperative to some commands, no current complaints, fatigued. Skin: Normal color, normal turgor, no icterus, no cyanosis except for significant bilateral lower extremity stasis disease and occasional staged ecchymoses. HEENT: AT/NC, EOMI, PERRLA, dry MM, no carotid bruits or JVD noted. Lungs: Mildly diminished, greater bases, appropriate effort, no rales, ronchi or wheezing. Heart: Mildly tachycardic with regular rhythm; no gallop, rub audible. Abdomen: Soft, NTTP, ND, hyperactive BS, no HSM. Extremities: No cyanosis, no clubbing, bilateral ankle to mid mauricio edema, not markedly pitting, significant venous stasis disease as noted above. Neurological: Awakens to stimuli, alert but falling back asleep quickly, oriented to self and was able to converse with a healthcare worker from his facility but she reports he is not quite at his baseline, significantly hard of hearing, cooperative to some commands, no current complaints, fatigued, cognitive function decreased from baseline although does have chronic underlying debilities with notable hard of hearing status and underlying schizophrenia; pupils equally reactive to light and accommodation, cranial nerves grossly norm al however does have notable hearing deficits, moving all 4 extremities, no obvious focal deficits, strength given acute presentation severely globally decreased Psychiatric: Affect appears flat, fatigued, no acute evidence of depressive or anxiety feelings but does have underlying history as well as schizophrenia. Results Lab / Micro Data Result Diagrams: 07/21/22 22:26 07/21/22 22:26 Labs: Laboratory Results - last 24 hr 07/21/22 22:26: WBC 8.6, RBC 3.58 L, Hgb 10.2 L, Hct 32.8 L, MCV 91.6, MCH 28.5, MCHC 31.1 L, RDW Std Deviation 52.2 H, RDW Coeff of Saman 15.6 H, Plt Count 339, MPV 11.6, Immature Gran % (Auto) 0.300, Neut % (Auto) 54.7, Lymph % (Auto) 22.2, Larue % (Auto) 11.7 H, Eos % (Auto) 10.8 H, Baso % (Auto) 0.3, Absolute Neuts (auto) 4.7, Absolute Lymphs (auto) 1.92, Nucleated RBC % 0 07/21/22 22:26: Sodium 140, Potassium 4.5, Chloride 109 H, Carbon Dioxide 28.0, Anion Gap 3 L, BUN 31 H, Creatinine 1.60 H, Estim Creat Clear Calc 51.87, Est GFR (MDRD) Af Amer 56 L, Est GFR (MDRD) Non-Af 47 L, BUN/Creatinine Ratio 19.4, Glucose 165 H, Calcium 8.9, Troponin I High Sens 570 H* 07/21/22 22:26: Valproic Acid 93 07/21/22 22:26: B-Natriuretic Peptide 98.[address] 07/21/22 22:19 IMPRESSION: 1. Moderate generalized atrophy. Moderate low density bilaterally in the deep white matter. This likely represents small vessel ischemic changes in the deep white matter. 2. Mucosal thickening bilateral maxillary and ethmoid sinuses. ASSESSMENT: ASPECTS ([place] Stroke Program Early CT Score) is 10. Electronically Signed: Tano Martin MD at 23:03 EST , ADDENDUM: 07/21/22 2941 IMPRESSION: 1. Moderate generalized atrophy. Moderate low density bilaterally in the deep white matter. This likely represents small vessel ischemic changes in the deep white matter. 2. Mucosal thickening bilateral maxillary and ethmoid sinuses. ASSESSMENT: ASPECTS ([place] Stroke Program Early CT Score) is 10. N.B. : The above Results were Read Back by Tano Martin MD to Dr. Keagan Bustos, FRANCO, and understanding confirmed on 07/21/2022 23:05:21 (ET). Electronically Signed: Tano Martin MD at 23:03 EST , Chest X-Ray 07/21/22 22:43 IMPRESSION: No radiographic evidence of acute cardiopulmonary disease. 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 #1. Acute NSTEMI: ED evaluation included chest x-ray with no acute c ardiopulmonary findings, CT brain with moderate generalized atrophy with moderate low-density bilaterally in the deep white matter likely client service representative of small vessel ischemic changes, mucosal thickening bilaterally in the maxillary and ethmoid sinuses, EKG with sinus rhythm with nonspecific changes with no acute evidence of ischemia, initial troponin 570. Will admit to PCU, maintain on a monitored bed, continue serial cardiac enzymes and EKGs. Obtain magnesium level upon admission. Continue heparin drip. Continue medical management. ECHO requested. Cardiology will be consulted. FLP in AM. NPO status after midnight for possible cardiac catheterization consideration with judicious IVFs. ASA, NG, morphine. #2. Acute encephalopathy, potentially multifactorial: Secondary to acute presentation with NSTEMI as noted, complicated by underlying significant psychiatric history, maintain on fall and aspiration precautions, urinalysis requested as well as COVID to be cautious. #3. Hypertension: Continue home regimen including metoprolol, losartan, Lasix once oral intake safe given lethargy with hold parameters as needed, PRN hydralazine. #4. Hyperlipidemia: Continue home statin regimen once her oral intakes given lethargy. AM FLP. #5. Anxiety and depression/schizophrenia: Patient with extensive past psychiatric regimen, given lethargy upon presentation although does awaken to discussion and will answer some questions we will temporarily hold anything sedated, Depakote level appropriate, once improving will reinitiate aripiprazole, Depakote, Haldol, Ativan, ziprasidone, trazodone with hold on sedated regimen as needed. #6. Diabetes mellitus type II: Hold oral home regimen, continue home insulin therapy, once mental status improved allow ADA diet however will be n.p.o. after midnight for possible cardiac catheterization, accu checks w/ ISS. #7. Chronic Kidney Disease Stage III unclear subtype: Admission BUN/Cr 1.60, prior baseline appears renal function to trend primarily 1.3-1.6, stable, judiciously hydrating pending cardiology evaluation for possible cardiac juan pablo terization, repeat level in AM. #8. Chronic anemia/AOCD/Fe deficiency anemia: Admission hemoglobin 10.2, baseline hemoglobin appears 9-10, stable, trend and continue Fe supplementation. #9. Hypothyroidism: Continue home levothyroxine regimen once assured oral intake safe given lethargy. #10. Tobacco Abuse: Encouraged cessation, inpatient consultation per RT, NR if desired. #11. Obesity: Weight loss and lifestyle changes encouraged. #12. DVT prophylaxis: SCDs, continue heparin drip as noted. #13. CODE status: Given patient presentation reviewed his current status with healthcare staff member from his facility. Specifically, discussed CODE status at length including difference between FULL code, DNR-CCA and DNR-CC status. Following discussions about the differences in these status, requested continuation of Full code status. Advanced Care Planning Face to Face Time: 16 minutes. Charges/Coding Visit Charges Inpatient E&M: 24843 Init Hosp L3 Procedures Hospitalists Procedures: 57963 Advncd Care Plan 30 Min
[2022-07-22] VITALS (16 sets, daily range): BP systolic 144–186; BP diastolic 57–100; PULSE 78–101; RESP 16–18; TEMP 36.5–36.8; O2SAT 94–100; BMI 32.1
[2022-07-22 00:12] LABS: Partial Thromboplast Time 31.2 Seconds (24.1-36.2)
[2022-07-22] MEDS: HEPARIN/D5w 25,000 UNITS 25,000 UNITS/250 ML IV.SOLN. 15 UNITS CONT INF (00:15)
--- NOTE | 2022-07-22 00:21 | EKG12_ITS ---
Test Reason : AM EKG Blood Pressure : / mmHG Vent. Rate : 095 BPM Atrial Rate : 095 BPM P-R Int : 136 ms QRS Dur : 076 ms QT Int : 356 ms P-R-T Axes : 074 070 077 degrees QTc Int : 447 ms Sinus rhythm with marked sinus arrhythmia Confirmed by KIMBERLY JADE, LANDEN ([id number]), greeting card editor TYRONE SANTIAGO ([id number]) on 07/28/2022 8:00:15 AM Referred By: ZULEMA Confirmed By:LANDEN HARRIS MD
--- NOTE | 2022-07-22 00:21 | ECHOD_ITS ---
Reason For Study: NSTEMI Procedure This was a 2D Doppler, Color Flow transthoracic echocardiogram. Technically difficult study, patient was uncooperative and could not stay still. Exam performed portable in patient room. Left Ventricle Normal LV size. The estimated ejection fraction is 55 %. Diastolic function is indeterminate. No regional wall motion abnormalities noted. Right Ventricle Normal RV size. Normal systolic function. Atria The left atrium is mildly enlarged. Normal right atrium. No doppler evidence for ASD. Mitral Valve There is no mitral valve stenosis. Trivial mitral valve insufficiency. Tricuspid Valve There is no tricuspid stenosis. Unable to estimate RV systolic pressure due to insufficient tricuspid regurgitant envelope. Trivial tricuspid valve insufficiency. Aortic Valve Trisinus/trileaflet aortic valve. There is no aortic stenosis. No aortic valve insufficiency. Pulmonic Valve There is no pulmonic valvular stenosis. No pulmonic valve insufficiency. Great Vessels Normal aortic root. Pericardium/Pleural No pericardial effusion. MMode/2D Measurements & Calculations LVIDd: 4.8 cm IVSd: 1.2 cm Ao root diam: 2.7 cm LVIDs: 3.6 cm LVPWd: 1.3 cm FS: 25.1 % LAV(MOD-sp4): 51.8 ml LVAd ap4: 24.9 cm2 SV(MOD-sp4): 20.2 ml LVLd ap4: 7.8 cm EDV(MOD-sp4): 64.0 ml EDV(sp4-el): 67.7 ml LVAs ap4: 18.8 cm2 LVLs ap4: 6.9 cm ESV(MOD-sp4): 43.7 ml ESV(sp4-el): 43.9 ml EF(MOD-sp4): 31.6 % EF(sp4-el): 35.2 % SV(sp4-el): 23.9 ml LA A4 area: 18.1 cm2 LA dimension(2D): 4.2 cm RA A4 area: 11.9 cm2 Time Measurements MV dec time: 0.22 sec Doppler Measurements & Calculations MV E max micah: 70.0 cm/sec Lat Peak E' Micah: 7.9 cm/sec Med Peak E' Micah: 6.4 cm/sec MV A max micah: 91.1 cm/sec E/E' lat: 8.8 E/E' med: 10.9 MV E/A: 0.77 MV V2 max: 99.8 cm/sec Ao V2 max: 72.9 cm/sec MV max P.0 mmHg MV dec slope: 359.2 cm/sec2 Ao max P.1 mmHg MV V2 mean: 66.0 cm/sec Ao V2 mean: 43.2 cm/sec MV mean P.9 mmHg Ao mean P.91 mmHg MV V2 VTI: 26.9 cm Ao V2 VTI: 16.5 cm LV V1 max: 95.6 cm/sec PA V2 max: 94.6 cm/sec LV V1 max P.7 mmHg PA V2 mean: 66.4 cm/sec LV V1 mean P.8 mmHg LV V1 mean: 61.2 cm/sec LV V1 VTI: 22.8 cm ECHO/Echo Complete Interpretation Summary The estimated ejection fraction is 55 %. Diastolic function is indeterminate. The left atrium is mildly enlarged. Trivial mitral valve insufficiency. Ordering Physician: Angelina Campbell Performed By: Valentina Villar RCS
[2022-07-22 00:25] LABS: International Normalized Ratio 1.1; Prothrombin Time (Protime)PT. 14.1 SECONDS (11.7-14.9)
[2022-07-22 00:28] LABS: Reflex Troponin-HS? (from REC) Y
[2022-07-22 00:41] LABS: Magnesium 2.2 mg/dL (1.6-2.6)
[2022-07-22] MEDS: 0.9% Normal Saline 1,000 ML 100 ML IV (01:08)
[2022-07-22] MEDS: HEPARIN/D5w 25,000 UNITS 25,000 UNITS/250 ML IV.SOLN. 10 UNITS CONT INF (01:09)
[2022-07-22 01:45] LABS: Troponin-I HS 555 pg/mL (3.0-78.0)
[2022-07-22 01:51] LABS: Mucous, Urine 0 SEEN /hpf (<or=2+); Squamous Epithelial Cells - UA 0 SEEN /hpf (0-5); White Blood Cells 0 SEEN /hpf (0-5)
[2022-07-22 01:52] LABS: Color, Urine Yellow (Yellow); Glucose, Dipstick Normal (Normal); Ketone-Dipstick Negative (Negative); Leukocyte Esterase-Dipstick Negative /ul (Negative); Nitrite-Dipstick Negative (Negative); Occult Blood-Urine 10 /ul (Negative); Protein-Dipstick 100 mg/dl (Negative); Urine Bilirubin Dipstick Negative (Negative); Urine Clarity Clear (Clear); Urine Urobilinogen Normal (Normal)
[2022-07-22 02:01] LABS: Bacteria RARE /hpf (None Seen); Red Blood Cells-Urine 0-5 SEEN /hpf (0-5)
[2022-07-22] MEDS: hydrALAZINE 20 MG/ML Vial 10 MG IV (03:51)
[2022-07-22 05:22] LABS: Absolute Lymphocyte Count 2.55 X10^3/uL (0.83-4.51); Absolute Neutrophil Count 5.3 X10^3/uL (2.0-7.7); Basophil# 0.03 X10^3/uL; Basophil% 0.3 % (0-1); Eosinophil# 1.19 X10^3/uL; Eosinophils% 11.5 % (0-5); Hematocrit 32.8 % (40-54); Hemoglobin 10.7 g/dL (13.0-16.5); Lymphocyte # 2.55 X10^3/ul (0.83-4.51); Lymphocyte % 24.6 % (19-41); Mean Corp Hgb Conc 32.6 g/dL (32-36); Mean Corpuscular Hgb 28.9 pg (27.0-32.0); Mean Corpuscular Volume 88.6 fL (80-94); Mean Platelet Vol. 11.7 fl (6.2-12.0); Monocyte% 12.5 % (0-10); NRBC Flagged by Analyzer 0 % (0-5); Neutrophil # 5.28 X10^3/uL (2.7-7.7); Neutrophil % 50.8 % (47-70); Platelet Count 358 K/mm3 (150-450); RBC Distribution Width CV 15.6 % (11.6-14.6); RBC Distribution Width SD 50.9 fl (35.1-43.9); White Blood Count 10.4 K/mm3 (4.4-11.0)
[2022-07-22 05:54] LABS: Troponin-I HS 588 pg/mL (3.0-78.0)
[2022-07-22 06:00] LABS: ALB/GLOB Ratio 0.6 RATIO (0.9-2.4); AST(SGOT) 18 U/L (15-37); Alanine Aminotransfer ALT/SGPT 16 U/L (16-61); Albumin, Serum 2.2 g/dL (3.2-5.0); Alkaline Phosphatase 66 U/L (45-117); Anion Gap 7 (5-15); BUN 25 mg/dL (7-18); BUN/Creat Ratio 20.2 RATIO (10-20); Calcium,Total 8.5 mg/dL (8.5-10.1); Chloride 109 mmol/L (98-107); Cholesterol 109 mg/dL (200); Creatinine, Serum 1.24 mg/dL (0.70-1.30); EST Glomerular Filtration Rate 62 mL/min (>60); Est Glom Filt Rate - Afr Amer 76 mL/min (>60); Estimated Creatinine Clearance 66.93 ml/min; Globulin 3.4 g/dL (2.2-4.2); Glucose 57 mg/dL (74-106); High Density Lipoprotein 47 mg/dL; Protein, Total 5.6 g/dL (6.4-8.2); Sodium Level 142 mmol/L (136-145); Triglycerides 50 mg/dL; Very Low Density Lipoprotein 10 mg/dL (5-40)
[2022-07-22] MEDS: Levothyroxine 50 MCG Tablet PO (06:00)
[2022-07-22] MEDS: Aspirin E.C. 81 MG Tablet PO (07:36)
[2022-07-22] MEDS: Divalproex (ER) 250 MG Tablet PO ×2 (07:36→22:24)
[2022-07-22] MEDS: ARIPiprazole 10 MG Tablet 20 MG PO (07:37)
[2022-07-22] MEDS: Ferrous Sulfate 325 MG Tablet PO (07:40)
[2022-07-22] MEDS: MEDROXYPROGESTERONE ACETATE 10 MG TABLET PO ×2 (07:41→22:24)
[2022-07-22 08:15] LABS: Partial Thromboplast Time 57.4 Seconds (24.1-36.2)
[2022-07-22] MEDS: Furosemide 40 MG Tablet PO (09:34)
[2022-07-22] MEDS: Metoprolol Tartrate 50 MG Tablet PO (09:34)
[2022-07-22] MEDS: Losartan Potassium 100 MG Tablet PO (09:34)
[2022-07-22 09:56] LABS: Bedside Glucose 78 mg/dL (74-106)
--- NOTE | 2022-07-22 09:56 | CON.PCM.CA_ITS ---
Assessment & Plan Assessment/Plan (1) NSTEMI, initial episode of care: PLAN: The patient presents, somewhat similar to her previous presentation in September of this year, with findings of abnormal cardiac enzymes. At the moment he appears without acute chest discomfort. He has had no acute electrocardiographic changes. His previous noninvasive studies were reviewed. There is a concern as to whether this represents a primary acute coronary syndrome event versus a type II event. At the present time he is being monitored and treated medically. He can have reassessment of his left ventricular wall motion and systolic function with a follow-up transthoracic echocardiogram. There is been a question as to whether or not the patient is a candidate for further evaluation with diagnostic cardiac catheterization. Such a procedure would have to be discussed with the patient's guardian/power of mergers and acquisitions attorney based upon the patient's altered mental status as well as his comorbidities, etc. before proceeding in that manner. (2) HLD (hyperlipidemia): PLAN: The patient should continue medical management as deemed appropriate. (3) HTN (hypertension): PLAN: The patient's blood pressure can be followed with adjustment of his medications taking into consideration his other comorbidities. (4) Hypothyroidism: PLAN: The patient should continue medical therapy and follow-up by his PCP. (5) Diabetes mellitus: PLAN: The patient will continue medical management of his diabetes by his primary care physician group. (6) Renal insufficiency: PLAN: The patient does have a history of renal insufficiency. His creatinine levels have fluctuated. This will have to be taken into consideration with any future invasive evaluation involving IV contrast agents. (7) Altered mental status: PLAN: The patient appears to be resting comfortably at the moment. He does have altered mental status based upon his underlying conditions. Again prior to proceeding with any invasive evaluation consideration should be to have his case should be discussed with his power of mergers and acquisitions attorney/guardian as noted above. Addt'l Comments The patient's case has been discussed and reviewed with Dr. Campbell of the [facility] staff. This note was generated using a voice recognition system and there may be incorrect words, spelling or punctuation that were not noted when reviewing the office note prior to saving. HPI Consult Data Date of Consult: 07/22/22 HPI Narrative HPI Narrative: ERICK DIAZ, is a 61 year old male who presents for cardiovascular consultation based upon concerns of abnormal cardiac enzymes superimposed upon a history of hyperlipidemia, hypertension, hypothyroidism, diabetes mellitus, renal insufficiency, and underlying psychiatric related disorders with concerns of schizophrenia reported as living in a extended care facility/retirement. He apparently was brought to [facility] based upon concerns of fatigue and lethargy and weakness with a complaint of pain. The patient does not appear to recall any of those symptoms. He does seem to recall feeling somewhat short of breath sometime over the last month.. He was evaluated by the [facility] emergency department staff and the [facility] hospital staff. He was noted to have elevation of his troponin I levels which have been trended with no significant peak and decline. This appears to be a similar type pattern to the previous evaluation in September 2021. His ECG demonstrated sinus rhythm with no acute ECG changes. His chest x-ray was reported with no acute cardiopulmonary disease process. He underwent a brain CT scan that demonstrated concerns of moderate generalized atrophy with moderate low-density bilaterally in the deep white matter likely r epresentative of small vessel ischemic changes as well as mucosal thickening bilaterally in the maxillary and ethmoid sinuses. He was subsequently placed in the PCU for further evaluation and care. He was placed on additional medical management with IV heparin. At the time of cardiovascular consultation he appeared to be resting comfortably. He denied any acute symptoms other than the previous comment where he does remember feeling somewhat short of breath over the last month. There has been no report of ongoing orthopnea or PND or peripheral pitting edema. There is been no report of near syncope or syncope. Of note, the patient did have an outpatient cardiovascular follow-up visit on 05-26-2022. At that time he was reported as appearing stable and continuing medical therapy. He states that he knows the month is July. He did not know the year or the current [facility] president. He also did not know what type of facility he was in or where that facility was at. [facility] Medical History Anxiety and depression Chronic anemia CKD (chronic kidney disease), stage III Diabetes mellitus, type 2 Fe deficiency anemia HLD (hyperlipidemia) HTN (hypertension) Hx of non-ST elevation myocardial infarction (NSTEMI) Hypothyroidism Schizophrenia Tobacco use Home Medications albuterol sulfate 0.63 mg/3 mL solution for nebulization 0.63 mg inhalation Q4H PRN Shortness Of Breath 07/21/22 [History Last Taken Unknown] aripiprazole 20 mg tablet (Abilify) 20 mg PO DAILY 07/21/22 [History Last Taken Unknown] aspirin 81 mg tablet 81 mg PO DAILY 07/21/22 [History Last Taken Unknown] atorvastatin 80 mg tablet 80 mg PO QHS 07/21/22 [History Last Taken Unknown] cholecalciferol (vitamin D3) 50 mcg (2,000 unit) tablet 50 mcg PO DAILY 07/21/22 [History Last Taken Unknown] divalproex 250 mg tablet,extended release 24 hr (Depakote ER) 250 mg PO BID 07/21/22 [History Last Taken Unknown] divalproex 500 mg tablet,extended release 24 hr (Depakote ER) 1,500 mg PO QHS 07/21/22 [History Last Taken Unknown] dulaglutide 3 mg/0.5 mL subcutaneous pen injector (Trulicity) 3 mg subcut QWEEK 07/21/22 [History Last Taken Unknown] ferrous sulfate 325 mg (65 mg iron) tablet 325 mg PO DAILY 07/21/22 [History Last Taken Unknown] furosemide 40 mg tablet (Lasix) 40 mg PO DAILY 07/21/22 [History Last Taken U nknown] haloperidol 2 mg tablet 2 mg PO TID 07/21/22 [History Last Taken Unknown] haloperidol 5 mg tablet 5 mg Q6H PRN PRN Agitation 07/21/22 [History Last Taken Unknown] insulin glargine 100 unit/mL subcutaneous cartridge 32 unit subcut QPM 07/21/22 [History Last Taken Unknown] insulin lispro 100 unit/mL subcutaneous cartridge (Humalog U-100 Insulin) 10 unit subcut TID 07/21/22 [History Last Taken Unknown] levothyroxine 50 mcg tablet 50 mcg PO DAILY 07/21/22 [History Last Taken Unknown] lorazepam 1 mg tablet (Ativan) 1 mg PO BID 07/21/22 [History Last Taken Unknown] lorazepam 1 mg tablet (Ativan) 1 mg Q6H PRN PRN agitation 07/21/22 [History Last Taken Unknown] losartan 100 mg tablet 100 mg PO DAILY 07/21/22 [History Last Taken Unknown] medroxyprogesterone 10 mg tablet (Provera) 10 mg BID 07/21/22 [History Last Taken Unknown] metformin 1,000 mg tablet 1,000 mg PO BID 07/21/22 [History Last Taken Unknown] metoprolol tartrate 50 mg tablet 50 mg PO BID 07/21/22 [History Last Taken Unknown] trazodone 100 mg tablet 100 mg PO QHS 07/21/22 [History Last Taken Unknown] Allergy/AdvReac Type Severity Reaction Status Date / Time No Known Allergies Allergy Verified 07/22/22 00:11 Family History other Surgical History No history of previous surgery Social History (Updated 07/22/22 @ 00:[address] Angelina Campbell MD) household members: other details: Behavioral SNF. Smoking Status: Current every day smoker tobacco type: cigarettes alcohol intake: never substance use type: does not use ROS Review of Systems ROS Unobtainable: due to mental condition Constitutional Constitutional: Reports as per HPI Eyes Eyes: Reports as per HPI ENT HEENT: Reports as per HPI Cardiovascular Cardiovascular: Reports dyspnea Respiratory/Chest Respiratory/Chest: Reports dyspnea Gastrointestinal Gastrointestinal: Reports as per HPI Genitourinary Genitourinary: Reports as per HPI Musculoskeletal Musculoskeletal: Reports as per HPI Integumentary Integumentary: Reports as per HPI Neurologic Neurologic: Reports as per HPI Psychiatric Psychiatric: Reports as per HPI Physical Exam Const no apparent distress Orientation / Consciousness: awake HEENT normocephalic, head/scalp atraumatic and hearing grossly normal bilaterally Eyes PERRL, EOMs intact bilaterally, conjunctivae normal and no scleral icterus Neck full ROM, supple and no JVD Carotids: normal carotid upstroke Resp normal respiratory effort and clear to auscultation bilaterally Cardio regular rate, regular rhythm, S1 normal heart sound and S2 normal heart sound GI normal to inspection, nondistended, normoactive bowel sounds Extremity no pedal edema Skin no rashes or lesions noted Risk Stratification Risk Stratification Applicable: Yes Age >/= 65: No >/= 3 CAD Risk Factors (HTN, HLD, DM, family hx of CAD, or current smoker): Yes Aspirin Use in the Past 7 Days: Yes Severe Angina (>/= episodes in 24 hours): No EKG ST Changes >/= 0.5mm: No Positive Cardiac Marker: Yes BRITTNEE Risk Stratification Score: 3 BRITTNEE % Risk: 13% Risk Procedure Criteria Type of Procedure Procedure Type: Elective Elective Risks - COVID COVID Risk Discussion: The surgeon/proceduralist and patient have discussed in detail the risk of exposure to and/or potential harm posed by the COVID-19 virus with having a surgery/procedure at this time versus the risk of delaying the surgery/procedure. It is not possible to know either the risk of delaying the surgery or procedure or chance of getting an infection with perfect accuracy, but a joint decision was made between the patient and the surgeon/proceduralist to proceed at this time with the scheduled surgery/procedure as indicated on the consent form. Objective Data Vital Signs: Vital Signs Temp Pulse Resp BP Pulse Ox O2 Del Method 98.0 F 81 18 186/100 H 94 Room Air 07/22/22 07:32 07/22/22 09:34 07/22/22 07:32 07/22/22 09:34 07/22/22 07:32 07/22/22 07:32 Oxygen Delivery Method Room Air Weight: 229 lb 15.074 oz Body Mass Index (BMI) 32.1 Intake & Output: Intake and Output for Last 24 Hours 07/20/22 07/21/22 07/22/22 23:59 23:59 23:59 Intake Total 1014.25 / 1014.25 Output Total 260 / 260 Balance 754.25 / 754.25 Lab / Micro Data Result Diagrams: 07/22/22 04:46 07/22/22 04:46 Labs: Laboratory Results - last 24 hr 07/21/22 22:26: WBC 8.6, RBC 3.58 L, Hgb 10.2 L, Hct 32.8 L, MCV 91.6, MCH 28.5, MCHC 31.1 L, RDW Std Deviation 52.2 H, RDW Coeff of Saman 15.6 H, Plt Count 339, MPV 11.6, Immature Gran % (Auto) 0.300, Neut % (Auto) 54.7, Lymph % (Auto) 22.2, [place] % (Auto) 11.7 H, Eos % (Auto) 10.8 H, Baso % (Auto) 0.3, Absolute Neuts (auto) 4.7, Absolute Lymphs (auto) 1.92, Nucleated RBC % 0 07/21/22 22:26: Sodium 140, Potassium 4.5, Chloride 109 H, Carbon Dioxide 28.0, Anion Gap 3 L, BUN 31 H, Creatinine 1.60 H, Estim Creat Clear Calc 51.87, Est GFR (MDRD) Af Amer 56 L, Est GFR (MDRD) Non-Af 47 L, BUN/Creatinine Ratio 19.4, Glucose 165 H, Calcium 8.9, Troponin I High Sens 570 H* 07/21/22 22:26: Valproic Acid 93 07/21/22 22:26: B-Natriuretic Peptide 98.5 07/21/22 22:26: Magnesium 2.2 07/21/22 23:50: PT 14.1, INR 1.1, APTT 31.2 07/22/22 00:37: COVID-19 (KEE) Not Detected 07/22/22 01:00: Troponin I High Sens 555 H* 07/22/22 01:00: Urine Color Yellow, Urine Clarity Clear, Urine pH 7.0, Ur Specific [place] 1.010, Urine Protein 100 H, Urine Glucose (UA) Normal, Urine Ketones Negative, Urine Occult Blood 10 H, Urine Nitrite Negative, Urine Bilirubin Negative, Urine Urobilinogen Normal, Ur Leukocyte Esterase Negative, Urine RBC 0-5 SEEN, Urine WBC 0 SEEN, Ur Squamous Epith Cells 0 SEEN, Urine Bacteria RARE, Urine Mucus 0 SEEN 07/22/22 04:46: WBC 10.4, RBC 3.70 L, Hgb 10.7 L, Hct 32.8 L, MCV 88.6, MCH 28.9, MCHC 32.6, RDW Std Deviation 50.9 H, RDW Coeff of Saman 15.6 H, Plt Count 358, MPV 11.7, Immature Gran % (Auto) 0.300, Neut % (Auto) 50.8, Lymph % (Auto) 24.6, [place] % (Auto) 12.5 H, Eos % (Auto) 11.5 H, Baso % (Auto) 0.3, Absolute Neuts (auto) 5.3, Absolute Lymphs (auto) 2.55, Nucleated RBC % 0 07/22/22 04:46: Sodium 142, Potassium 4.0, Chloride 109 H, Carbon Dioxide 26.0, Anion Gap 7, BUN 25 H, Creatinine 1.24, Estim Creat Clear Calc 66.93, Est GFR (MDRD) Af Amer 76, Est GFR (MDRD) Non-Af 62, BUN/Creatinine Ratio 20.2 H, Glucose 57 L, Calcium 8.5, Total Bilirubin 0.30, AST 18, ALT 16, Alkaline Phosphatase 66, Total Protein 5.6 L, Albumin 2.2 L, Globulin 3.4, Albumin/Globulin Ratio 0.6 L, Triglycerides 50, Cholesterol 109, LDL Cholesterol 52, VLDL Cholesterol 10, HDL Cholesterol 47 07/22/22 04:46: Troponin I High Sens 588 H* 07/22/22 07:05: APTT 57.4 H Cardiology Labs/Tests 07/21/22 22:26: WBC 8.6, RBC 3.58 L, Hgb 10.2 L, Hct 32.8 L, MCV 91.6, MCH 28.5, MCHC 31.1 L, Plt Count 339, MPV 11.6, Immature Gran % (Auto) 0.300, Neut % (Auto) 54.7, Lymph % (Auto) 22.2, [place] % (Auto) 11.7 H, Eos % (Auto) 10.8 H, Baso % (Auto) 0.3, Absolute Neuts (auto) 4.7, Nucleated RBC % 0 07/21/22 22:26: Sodium 140, Potassium 4.5, Chloride 109 H, Carbon Dioxide 28.0, Anion Gap 3 L, BUN 31 H, Creatinine 1.60 H, Est GFR (MDRD) Af Amer 56 L, Est GFR (MDRD) Non-Af 47 L, BUN/Creatinine Ratio 19.4, Glucose 165 H, Calcium 8.9 07/21/22 22:26: B-Natriuretic Peptide 98.5 07/21/22 22:26: Magnesium 2.2 07/21/22 23:50: PT 14.1, INR 1.1, APTT 31.2 07/22/22 01:00: Urine Color Yellow, Urine Clarity Clear, Urine pH 7.0, Ur Specific [place] 1.010, Urine Protein 100 H, Urine Glucose (UA) Normal, Urine Ketones Negative, Urine Occult Blood 10 H, Urine Nitrite Negative, Urine Bilirubin Negative, Urine Urobilinogen Normal, Ur Leukocyte Esterase Negative, Urine RBC 0-5 SEEN, Urine WBC 0 SEEN 07/22/22 04:46: WBC 10.4, RBC 3.70 L, Hgb 10.7 L, Hct 32.8 L, MCV 88.6, MCH 28.9, MCHC 32.6, Plt Count 358, MPV 11.7, Immature Gran % (Auto) 0.300, Neut % (Auto) 50.8, Lymph % (Auto) 24.6, [place] % (Auto) 12.5 H, Eos % (Auto) 11.5 H, Baso % (Auto) 0.3, Absolute Neuts (auto) 5.3, Nucleated RBC % 0 07/22/22 04:46: Sodium 142, Potassium 4.0, Chloride 109 H, Carbon Dioxide 26.0, Anion Gap 7, BUN 25 H, Creatinine 1.24, Est GFR (MDRD) Af Amer 76, Est GFR (MDRD) Non-Af 62, BUN/Creatinine Ratio 20.2 H, Glucose 57 L, Calcium 8.5, Total Bilirubin 0.30, Triglycerides 50, Cholesterol 109, LDL Cholesterol 52, VLDL Cholesterol 10, HDL Cholesterol 47 07/22/22 07:05: APTT 57.4 H Rhythm: Sinus rhythm EKG: Sinus rhythm ECHO: 09-23-2021 The study was technically difficult. The study was technically limited. Based upon the 2D echocardiographic images obtained there appeared to be grossly normal left ventricular size, wall motion, and systolic function. The estimated ejection fraction 65% Mild concentric left ventricular perjury There is mild mitral and calcification Extension of the mitral annular calcification onto the base of the posterior mitral valve leaflet Trivial MR Trivial TR Unable to estimate RV systolic pressure/pulmonary artery pressure due to technically difficult study Unable to assess diastolic dysfunction Radiography Diagnostic Testing: Radiology Impression Brain CT 07/21/22 22:19 IMPRESSION: 1. Moderate generalized atrophy. Moderate low density bilaterally in the deep white matter. This likely represents small vessel ischemic changes in the deep white matter. 2. Mucosal thickening bilateral maxillary and ethmoid sinuses. ASSESSMENT: ASPECTS ([place] Stroke Program Early CT Score) is 10. Electronically Signed: Tano Martin MD at 23:03 EST , ADDENDUM: 07/21/22 4895 IMPRESSION: 1. Moderate generalized atrophy. Moderate low density bilaterally in the deep white matter. This likely represents small vessel ischemic changes in the deep white matter. 2. Mucosal thickening bilateral maxillary and ethmoid sinuses. ASSESSMENT: ASPECTS ([place] Stroke Program Early CT Score) is 10. N.B. : The above Results were Read Back by Tano Martin MD to FRANCO Viera, and understanding confirmed on 07/21/2022 23:05:21 (ET). Electronically Signed: Tano Martin MD at 23:03 EST , Chest X-Ray 07/21/22 22:43 IMPRESSION: No radiographic evidence of acute cardiopulmonary disease. Electronically Signed: Tano Martin MD at 22:53 EST ,
--- NOTE | 2022-07-22 10:21 | PCM.PN.HOSP ---
Subjective Subjective Full follow-up on acute non-STEMI: Patient was seen and examined. Denies any chest pain or dizziness. Remains on heparin drip. Objective Data Objective Data Vital Signs: Vital Signs Temp Pulse Resp BP Pulse Ox O2 Del Method 98.0 F 81 18 186/100 H 94 Room Air 07/22/22 07:32 07/22/22 09:34 07/22/22 07:32 07/22/22 09:34 07/22/22 07:32 07/22/22 07:32 Oxygen Delivery Method Room Air Weight: 104.3 kg Body Mass Index (BMI) 32.1 Intake & Output: Intake and Output for Last 24 Hours 07/20/22 07/21/22 07/22/22 23:59 23:59 23:59 Intake Total 1014.25 / 1014.25 Output Total 260 / 260 Balance 754.25 / 754.25 Lab / Micro Data Result Diagrams: 07/22/22 04:46 07/22/22 04:46 Labs: Laboratory Results - last 24 hr 07/21/22 22:26: WBC 8.6, RBC 3.58 L, Hgb 10.2 L, Hct 32.8 L, MCV 91.6, MCH 28.5, MCHC 31.1 L, RDW Std Deviation 52.2 H, RDW Coeff of Saman 15.6 H, Plt Count 339, MPV 11.6, Immature Gran % (Auto) 0.300, Neut % (Auto) 54.7, Lymph % (Auto) 22.2, [place] % (Auto) 11.7 H, Eos % (Auto) 10.8 H, Baso % (Auto) 0.3, Absolute Neuts (auto) 4.7, Absolute Lymphs (auto) 1.92, Nucleated RBC % 0 07/21/22 22:26: Sodium 140, Potassium 4.5, Chloride 109 H, Carbon Dioxide 28.0, Anion Gap 3 L, BUN 31 H, Creatinine 1.60 H, Estim Creat Clear Calc 51.87, Est GFR (MDRD) Af Amer 56 L, Est GFR (MDRD) Non-Af 47 L, BUN/Creatinine Ratio 19.4, Glucose 165 H, Calcium 8.9, Troponin I High Sens 570 H* 07/21/22 22:26: Valproic Acid 93 07/21/22 22:26: B-Natriuretic Peptide 98.5 07/21/22 22:26: Magnesium 2.2 07/21/22 23:50: PT 14.1, INR 1.1, APTT 31.2 07/22/22 00:37: COVID-19 (KEE) Not Detected 07/22/22 01:00: Troponin I High Sens 555 H* 07/22/22 01:00: Urine Color Yellow, Urine Clarity Clear, Urine pH 7.0, Ur Specific [place] 1.010, Urine Protein 100 H, Urine Glucose (UA) Normal, Urine Ketones Negative, Urine Occult Blood 10 H, Urine Nitrite Negative, Urine Bilirubin Negative, Urine Urobilinogen Normal, Ur Leukocyte Esterase Negative, Urine RBC 0-5 SEEN, Urine WBC 0 SEEN, Ur Squamous Epith Cells 0 SEEN, Urine Bacteria RARE, Urine Mucus 0 SEEN 07/22/22 04:46: WBC 10.4, RBC 3.70 L, Hgb 10.7 L, Hct 32.8 L, MCV 88.6, MCH 28.9, MCHC 32.6, RDW Std Deviation 50.9 H, RDW Coeff of Saman 15.6 H, Plt Count 358, MPV 11.7, Immature Gran % (Auto) 0.300, Neut % (Auto) 50.8, Lymph % (Auto) 24.6, [place] % (Auto) 12.5 H, Eos % (Auto) 11.5 H, Baso % (Auto) 0.3, Absolute Neuts (auto) 5.3, Absolute Lymphs (auto) 2.55, Nucleated RBC % 0 07/22/22 04:46: Sodium 142, Potassium 4.0, Chloride 109 H, Carbon Dioxide 26.0, Anion Gap 7, BUN 25 H, Creatinine 1.24, Estim Creat Clear Calc 66.93, Est GFR (MDRD) Af Amer 76, Est GFR (MDRD) Non-Af 62, BUN/Creatinine Ratio 20.2 H, Glucose 57 L, Calcium 8.5, Total Bilirubin 0.30, AST 18, ALT 16, Alkaline Phosphatase 66, Total Protein 5.6 L, Albumin 2.2 L, Globulin 3.4, Albumin/Globulin Ratio 0.6 L, Triglycerides 50, Cholesterol 109, LDL Cholesterol 52, VLDL Cholesterol 10, HDL Cholesterol 47 07/22/22 04:46: Troponin I High Sens 588 H* 07/22/22 07:05: APTT 57.4 H 07/22/22 07:29: POC Glucose 78 Radiography Diagnostic Testing: Radiology Impression Brain CT 07/21/22 22:19 IMPRESSION: 1. Moderate generalized atrophy. Moderate low density bilaterally in the deep white matter. This likely represents small vessel ischemic changes in the deep white matter. 2. Mucosal thickening bilateral maxillary and ethmoid sinuses. ASSESSMENT: ASPECTS ([place] Stroke Program Early CT Score) is 10. Electronically Signed: Tano Martin MD at 23:03 EST , ADDENDUM: 07/21/22 2312 IMPRESSION: 1. Moderate generalized atrophy. Moderate low density bilaterally in the deep white matter. This likely represents small vessel ischemic changes in the deep white matter. 2. Mucosal thickening bilateral maxillary and ethmoid sinuses. ASSESSMENT: ASPECTS ([place] Stroke Program Early CT Score) is 10. N.B. : The above Results were Read Back by Tano Martin MD to Dr. Keagan Bustos, FRANCO, and understanding confirmed on 07/21/2022 23:05:21 (ET). Electronically Signed: Tano Martin MD at 23:03 EST , Chest X-Ray 07/21/22 22:43 IMPRESSION: No radiographic evidence of acute cardiopulmonary disease. Electronically Signed: Tano Martin MD at 22:53 EST , Physical Exam Narrative Physical exam: General: Alert, Oriented xself, Cooperative, No apparent distress HEENT: Atraumatic Oral: Moist Mucosa Neck: Supple Lungs: Diminished to auscultation Cardiovascular: HS I+II, regular, no murmurs Abdomen: Bowel Sounds Present, Soft, Non Tender Extremities: No edema Skin: No rashes, No breakdown Neurological: Grossly intact Psych/Mental Status: Appropriate Assessment & Plan Assessment/Plan (1) NSTEMI, initial episode of care: PLAN: Plan 1. Acute NSTEMI, remains on heparin drip and medically management cardiology Continue aspirin, statin, metoprolol, heparin drip 2. ? Acute encephalopathy, in a patient with history of schizophrenia Unclear of patient's baseline Will monitor 3. Hypertension, slightly uncontrolled, increase metoprolol from 50 mg BID to 100 mg twice daily, continue Losartan 4. Hyperlipidemia, continue statins 5. Type II DM, blood sugars are fairly controlled, Trulicity and metformin on hold Continue with insulin sliding scale 6. Anxiety and depression/schizophrenia, continue on home aripiprazole, Depakote, Haldol, Ativan, ziprasidone, trazodone 7. Chronic Kidney Disease Stage III unclear subtype, creatinine appears to be closer to baseline, will trend 8. Hypothyroidism, continue Synthroid 9. DVT prophylaxis?on heparin drip Charges/Coding Visit Charges Inpatient E&M: 02426 Subs Hosp L3
[2022-07-22 11:35] LABS: Bedside Glucose 116 mg/dL (74-106)
--- NOTE | 2022-07-22 14:14 | CASEMGMT ---
According to they [facility] MyCare website, the following are in-network tertiary facilities: [facility], [place], [facility], [facility], and . Makayla RODRIGUEZ CM
[2022-07-22 15:12] LABS: Partial Thromboplast Time 58.7 Seconds (24.1-36.2)
[2022-07-22] MEDS: Insulin Lispro 100 UNIT/ML INSULN.PEN SC (16:53)
[2022-07-22] MEDS: Insulin Lispro 100 UNIT/ML INSULN.PEN 10 UNIT SC (16:54)
[2022-07-22 17:10] LABS: Bedside Glucose 284 mg/dL (74-106)
[2022-07-22 22:04] LABS: Partial Thromboplast Time 46.2 Seconds (24.1-36.2)
[2022-07-22] MEDS: guaiFENesin 10 ML UDC (200MG/10ML) 20 ML PO (22:22)
[2022-07-22] MEDS: Divalproex (ER) 500 MG Tablet 1500 MG PO (22:23)
[2022-07-22] MEDS: MELATONIN 3 MG TABLET PO (22:23)
[2022-07-22] MEDS: Metoprolol Tartrate 100 MG Tablet PO (22:25)
[2022-07-22] MEDS: Atorvastatin Calcium 80 MG Tablet PO (22:25)
--- NOTE | 2022-07-22 22:51 | NURSING ---
pt refusing his groin shave for heart cath prep. Attempted twice and continue to refuse.
[2022-07-22 23:16] LABS: Bedside Glucose 129 mg/dL (74-106)
[2022-07-23] VITALS (14 sets, daily range): BP systolic 140–180; BP diastolic 80–84; PULSE 78–94; RESP 18; TEMP 36.1–36.7; O2SAT 95–97
[2022-07-23] MEDS: traZODone 100 MG Tablet PO (01:28)
[2022-07-23] MEDS: LORazepam 1 MG Tablet PO ×2 (01:29→09:04)
[2022-07-23] MEDS: hydrALAZINE 20 MG/ML Vial 10 MG IV (01:39)
[2022-07-23] MEDS: 0.9% Saline Lock 10 ML Syringe IV ×2 (01:40→09:02)
[2022-07-23] MEDS: HEPARIN/D5w 25,000 UNITS 25,000 UNITS/250 ML IV.SOLN. 11 UNITS CONT INF (01:40)
[2022-07-23] MEDS: Haloperidol 1 MG Tablet 2 MG PO ×2 (04:46→13:01)
[2022-07-23] MEDS: Levothyroxine 50 MCG Tablet PO (04:46)
[2022-07-23 05:27] LABS: Absolute Lymphocyte Count 1.33 X10^3/uL (0.83-4.51); Absolute Neutrophil Count 4.6 X10^3/uL (2.0-7.7); Basophil# 0.04 X10^3/uL; Basophil% 0.5 % (0-1); Eosinophil# 0.79 X10^3/uL; Eosinophils% 10.2 % (0-5); Hematocrit 34.7 % (40-54); Lymphocyte # 1.33 X10^3/ul (0.83-4.51); Lymphocyte % 17.2 % (19-41); Mean Corp Hgb Conc 31.7 g/dL (32-36); Mean Corpuscular Hgb 28.5 pg (27.0-32.0); Mean Corpuscular Volume 89.9 fL (80-94); Mean Platelet Vol. 11.1 fl (6.2-12.0); Monocyte# 0.96 X10^3/uL; Monocyte% 12.4 % (0-10); NRBC Flagged by Analyzer 0 % (0-5); Neutrophil # 4.61 X10^3/uL (2.7-7.7); Neutrophil % 59.4 % (47-70); Platelet Count 333 K/mm3 (150-450); RBC Distribution Width CV 15.5 % (11.6-14.6); RBC Distribution Width SD 51.1 fl (35.1-43.9); Red Blood Count 3.86 M/mm3 (4.6-6.2); White Blood Count 7.8 K/mm3 (4.4-11.0)
[2022-07-23 05:37] LABS: Partial Thromboplast Time 32.6 Seconds (24.1-36.2)
[2022-07-23 05:41] LABS: Anion Gap 8 (5-15); BUN 25 mg/dL (7-18); BUN/Creat Ratio 16.6 RATIO (10-20); Calcium,Total 8.7 mg/dL (8.5-10.1); Chloride 105 mmol/L (98-107); Creatinine, Serum 1.51 mg/dL (0.70-1.30); EST Glomerular Filtration Rate 50 mL/min (>60); Est Glom Filt Rate - Afr Amer 60 mL/min (>60); Estimated Creatinine Clearance 54.96 ml/min; Glucose 237 mg/dL (74-106); Potassium 4.6 mmol/L (3.5-5.1); Sodium Level 139 mmol/L (136-145)
--- NOTE | 2022-07-23 05:55 | EKG12_ITS ---
Test Reason : Blood Pressure : / mmHG Vent. Rate : 096 BPM Atrial Rate : 096 BPM P-R Int : 150 ms QRS Dur : 074 ms QT Int : 350 ms P-R-T Axes : 072 064 069 degrees QTc Int : 442 ms Normal sinus rhythm Normal ECG When compared with ECG of 21-JUL-2022 22:46, MANUAL COMPARISON REQUIRED, DATA IS UNCONFIRMED Confirmed by ZANDER JADE, CAATRINA ([id number]), material expeditor TYRONE SANTIAGO ([id number]) on 07/30/2022 7:20:00 AM Referred By: Confirmed By:CATARINA FERMIN MD
--- NOTE | 2022-07-23 05:57 | NURSING ---
This RN called pt's brother Umang Chung ([phone]) to get consent for the heart cath planned today. Pt brother didn't give consent to do heart cath.
--- NOTE | 2022-07-23 08:40 | PN.CARD_ITS ---
Subjective Subjective The patient is awake this morning. He does not appear to be oriented this morning. He has been uncooperative with the nursing staff this morning. Objective Data Vital Signs: Vital Signs Temp Pulse Resp BP Pulse Ox O2 Del Method 98.1 F 92 18 140/80 H 97 Room Air 07/23/22 08:36 07/23/22 08:36 07/23/22 08:36 07/23/22 08:36 07/23/22 08:36 07/23/22 08:36 Oxygen Delivery Method Room Air Weight: 226 lb 6.636 oz Body Mass Index (BMI) 32.1 Intake & Output: Intake and Output for Last 24 Hours 07/21/22 07/22/22 07/23/22 23:59 23:59 23:59 Intake Total 2503.25 / 2503.25 48.95 / 48.95 Output Total 1360 / 1360 250 / 250 Balance 1143.25 / 1143.25 -201.05 / -201.05 Lab / Micro Data Result Diagrams: 07/23/22 05:20 07/23/22 05:20 Labs: Laboratory Results - last 24 hr 07/22/22 07:29: POC Glucose 78 07/22/22 11:04: POC Glucose 116 H 07/22/22 14:32: APTT 58.7 H 07/22/22 16:50: POC Glucose 284 H 07/22/22 21:29: APTT 46.2 H 07/22/22 22:21: POC Glucose 129 H 07/23/22 05:20: WBC 7.8, RBC 3.86 L, Hgb 11.0 L, Hct 34.7 L, MCV 89.9, MCH 28.5, MCHC 31.7 L, RDW Std Deviation 51.1 H, RDW Coeff of Saman 15.5 H, Plt Count 333, MPV 11.1, Immature Gran % (Auto) 0.300, Neut % (Auto) 59.4, Lymph % (Auto) 17.2 L, [place] % (Auto) 12.4 H, Eos % (Auto) 10.2 H, Baso % (Auto) 0.5, Absolute Neuts (auto) 4.6, Absolute Lymphs (auto) 1.33, Nucleated RBC % 0 07/23/22 05:20: Sodium 139, Potassium 4.6, Chloride 105, Carbon Dioxide 26.0, Anion Gap 8, BUN 25 H, Creatinine 1.51 H, Estim Creat Clear Calc 54.96, Est GFR (MDRD) Af Amer 60, Est GFR (MDRD) Non-Af 50 L, BUN/Creatinine Ratio 16.6, Glucose 237 H, Calcium 8.7 07/23/22 05:20: APTT 32.6 Cardiology Labs/Tests 07/22/22 14:32: APTT 58.7 H 07/22/22 21:29: APTT 46.2 H 07/23/22 05:20: WBC 7.8, RBC 3.86 L, Hgb 11.0 L, Hct 34.7 L, MCV 89.9, MCH 28.5, MCHC 31.7 L, Plt Count 333, MPV 11.1, Immature Gran % (Auto) 0.300, Neut % (Auto) 59.4, Lymph % (Auto) 17.2 L, [place] % (Auto) 12.4 H, Eos % (Auto) 10.2 H, Baso % (Auto) 0.5, Absolute Neuts (auto) 4.6, Nucleated RBC % 0 07/23/22 05:20: Sodium 139, Potassium 4.6, Chloride 105, Carbon Dioxide 26.0, Anion Gap 8, BUN 25 H, Creatinine 1.51 H, Est GFR (MDRD) Af Amer 60, Est GFR (MDRD) Non-Af 50 L, BUN/Creatinine Ratio 16.6, Glucose 237 H, Calcium 8.7 07/23/22 05:20: APTT 32.6 Rhythm: Sinus rhythm EKG: Sinus rhythm; no acute ECG changes ECHO: Interpretation Summary The estimated ejection fraction is 55 %. Diastolic function is indeterminate. The left atrium is mildly enlarged. Trivial mitral valve insufficiency. Radiography Diagnostic Testing: Radiology Impression Echocardiogram 07/22/22 00:21 Interpretation Summary The estimated ejection fraction is 55 %. Diastolic function is indeterminate. The left atrium is mildly enlarged. Trivial mitral valve insufficiency. Ordering Physician: Angelina Campbell Performed By: Valentina Villar RCS Physical Exam Const Orientation / Consciousness: awake HEENT normocephalic, head/scalp atraumatic and hearing grossly normal bilaterally Eyes PERRL, EOMs intact bilaterally, conjunctivae normal and no scleral icterus Neck full ROM, supple and no JVD Carotids: normal carotid upstroke Resp normal respiratory effort and clear to auscultation bilaterally Cardio regular rate, regular rhythm, S1 normal heart sound and S2 normal heart sound GI normal to inspection, nondistended, normoactive bowel sounds Extremity no pedal edema Skin no rashes or lesions noted Assessment & Plan Assessment/Plan (1) NSTEMI, initial episode of care: PLAN: The patient presents, somewhat similar to her previous presentation in September of this year, with findings of abnormal cardiac enzymes. At the moment he appears without acute chest discomfort. He has had no acute electrocardiographic changes. His previous noninvasive studies were reviewed. His follow-up echocardiogram report was reviewed. He is continuing conservative medical therapy at this time. His case was discussed with his guardian yesterday via telephone. Initially the guardian granted consent to proceed with further cardiovascular evaluation with diagnostic cardiac catheterization. However, after guardian was recontacted by the [facility] nursing staff to confirm his consent he then stated that he had to discuss the patient's case with his other siblings. It appears, from information from the [facility] nursing staff, that after that discussion took place the consensus was to continue conservative medical therapy and not proceed with any further cardiovascular diagnostic studies especially invasive studies, etc.,even if the patient were able to cooperate with such a procedure which based upon the patient's evaluation this morning he would not be able to do so. (2) HLD (hyperlipidemia): PLAN: The patient should continue medical management as deemed appropriate. (3) HTN (hypertension): PLAN: The patient's blood pressure can be followed with adjustment of his medications taking into consideration his other comorbidities. (4) Hypothyroidism: PLAN: The patient should continue medical therapy and follow-up by his PCP. (5) Diabetes mellitus: PLAN: The patient will continue medical management of his diabetes by his primary care physician group. (6) Renal insufficiency: PLAN: The patient's creatinine level did elevate somewhat. Again this has to be taken into consideration with his medical management and any other future additional studies would include IV contrast agents. (7) Altered mental status: PLAN: The patient appears to be somewhat agitated and is unable to cooperate/follow instructions by the medical staff at this time. He does have altered mental status based upon his underlying conditions. Addt'l Comments The patient's case was discussed and reviewed with Dr. Rodriguez. This note was generated using a voice recognition system and there may be incorrect words, spelling or punctuation that were not noted when reviewing the office note prior to saving. Procedure Criteria Type of Procedure Procedure Type: Elective Elective Risks - COVID COVID Risk Discussion: The surgeon/proceduralist and patient have discussed in detail the risk of exposure to and/or potential harm posed by the COVID-19 virus with having a surgery/procedure at this time versus the risk of delaying the surgery/procedure. It is not possible to know either the risk of delaying the surgery or procedure or chance of getting an infection with perfect accuracy, but a joint decision was made between the patient and the surgeon/proceduralist to proceed at this time with the scheduled surgery/procedure as indicated on the consent form.
[2022-07-23] MEDS: Clopidogrel Bisulfate 75 MG Tablet PO (09:03)
[2022-07-23] MEDS: Furosemide 40 MG Tablet PO (09:03)
[2022-07-23] MEDS: Metoprolol Tartrate 100 MG Tablet PO (09:03)
[2022-07-23] MEDS: ARIPiprazole 10 MG Tablet 20 MG PO (09:04)
[2022-07-23] MEDS: MEDROXYPROGESTERONE ACETATE 10 MG TABLET PO (09:04)
[2022-07-23] MEDS: Aspirin E.C. 81 MG Tablet PO (09:04)
[2022-07-23] MEDS: guaiFENesin 10 ML UDC (200MG/10ML) 20 ML PO (09:04)
[2022-07-23] MEDS: Ferrous Sulfate 325 MG Tablet PO (09:04)
[2022-07-23] MEDS: Losartan Potassium 100 MG Tablet PO (09:04)
[2022-07-23] MEDS: Insulin Lispro 100 UNIT/ML INSULN.PEN SC ×2 (09:04→12:59)
[2022-07-23] MEDS: Divalproex (ER) 250 MG Tablet PO (09:04)
[2022-07-23] MEDS: Insulin Lispro 100 UNIT/ML INSULN.PEN 10 UNIT SC ×2 (09:05→13:00)
[2022-07-23 09:16] LABS: Bedside Glucose 237 mg/dL (74-106)
--- NOTE | 2022-07-23 10:00 | CASEMGMT ---
Discharge Button Sewer Hand This automatic typewriter inspector faxed updates on patient to [facility]. Sonya GOMES Security Risk Analyst
[2022-07-23 11:41] LABS: Bedside Glucose 202 mg/dL (74-106)
--- NOTE | 2022-07-23 12:04 | PCM.TXEXTCAR ---
Diet Diet Order/Speech Therapy: 07/22/22 14:40 Diet: Cardiac: Calorie-Controlled Is pt able to select menu?: No How many daily calories?: 2000 calorie Routine Orders/Code Status Suppository Type: Dulcolax 10mg Suppository Frequency: Daily PRN Keep PO Greater than or Equal to (%): 94 Routine Lab Work: CBC (within 3 days) and - (CMP within 3 days) Code Status: Full Code Wound(s) RLE: Wound Type: Abrasion Therapies Weight Bearing: Weight bearing as tolerated Physical Therapy: Eval and Treat Occupational Therapy: Eval and Treat Problem/Diagnosis (1) NSTEMI, initial episode of care: Status: Acute Code(s): I21.4 - Non-ST elevation (NSTEMI) myocardial infarction (2) HLD (hyperlipidemia): Status: Acute Code(s): E78.5 - Hyperlipidemia, unspecified (3) HTN (hypertension): Status: Chronic Code(s): I10 - Essential (primary) hypertension (4) Hypothyroidism: Status: Acute Code(s): E03.9 - Hypothyroidism, unspecified (5) Diabetes mellitus: Status: Acute Code(s): E11.9 - Type 2 diabetes mellitus without complications (6) Renal insufficiency: Status: Acute Code(s): N28.9 - Disorder of kidney and ureter, unspecified (7) Altered mental status: Status: Acute Code(s): R41.82 - Altered mental status, unspecified Plan 1. Acute NSTEMI 2. ? Acute encephalopathy, in a patient with history of schizophrenia 3. Hypertension 4. Hyperlipidemia 5. Type II DM 6. Anxiety and depression/schizophrenia 7. Chronic Kidney Disease Stage III unclear subtype 8. Hypothyroidism Allergies/Procedures Done in Hospital Allergies No Known Allergies Allergy (Verified 07/22/22 00:11) Procedures: 2-D Echocardiogram Type of Care/Length of Stay Estimated LOS: Convalescent Care Less Than 30 days Type of Care Needed: Intermediate Rehab Potential: Fair Prognosis: Fair Additional Orders/Day of Discharge Day of Discharge: 07/23/22 Dietary and Speech Recommendations Dietitian Recommendations/Changes: Continue Cardiac diet. RD will add CCD diet to help manage blood sugars. Discharge Plan Admission Admit Date/Time: 07/21/22 23:56 Primary Reason for Your Visit: Acute NSTEMI Attending Provider: Angie Rodriguez Primary Care Provider: Bernard Hankins Consulting Providers: Chong Herrera ; Angelina Campbell Instructions Additional Instructions / Restrictions: Take note of changes to his medications Patient will be on Plavix for 1 month Follow-up with cardiology within 1 month Discharge Orders/Prescriptions Prescriptions: New metoprolol tartrate 100 mg Tablet 100 mg PO BID 30 Days Qty: 0 0RF clopidogrel 75 mg Tablet 75 mg PO DAILY 30 Days Qty: 0 0RF aspirin 81 mg Tablet,Delayed Release (Dr/Ec) 81 mg PO BREAKFAST 30 Days Qty: 0 0RF Continued furosemide [Lasix] 40 mg Tablet 40 mg PO DAILY albuterol sulfate 0.63 mg/3 mL Solution For Nebulization 0.63 mg INHALATION Q4H PRN (Reason: Shortness Of Breath) atorvastatin 80 mg Tablet 80 mg PO QHS haloperidol 5 mg Tablet 5 mg Q6H PRN PRN (Reason: Agitation) levothyroxine 50 mcg Tablet 50 mcg PO DAILY ferrous sulfate 325 mg (65 mg iron) Tablet 325 mg PO DAILY metformin 1,000 mg Tablet 1,000 mg PO BID divalproex [Depakote ER] 500 mg Tablet Extended Release 24 Hr 1,500 mg PO QHS aspirin 81 mg Tablet 81 mg PO DAILY lorazepam [Ativan] 1 mg Tablet 1 mg Q6H PRN PRN (Reason: agitation) lorazepam [Ativan] 1 mg Tablet 1 mg PO BID haloperidol 2 mg Tablet 2 mg PO TID losartan 100 mg Tablet 100 mg PO DAILY Humalog U-100 Insulin 100 unit/mL Cartridge 10 unit SUBCUT TID aripiprazole [Abilify] 20 mg Tablet 20 mg PO DAILY divalproex [Depakote ER] 250 mg Tablet Extended Release 24 Hr 250 mg PO BID insulin glargine 100 unit/mL Cartridge 32 unit SUBCUT QPM medroxyprogesterone [Provera] 10 mg Tablet 10 mg BID trazodone 100 mg Tablet 100 mg PO QHS cholecalciferol (vitamin D3) 50 mcg (2,000 unit) Tablet 50 mcg PO DAILY Trulicity 3 mg/0.5 mL Pen Injector 3 mg SUBCUT QWEEK Rx Instructions: tuesdays Discontinued metoprolol tartrate 50 mg Tablet 50 mg PO BID Referrals / Follow Up: Bernard Hankins MD [Primary Care Provider] - Within 1 Week Chong Herrera MD [Med Staff - Active Staff] - Within 1 Month Disposition Disposition (needs filled in before D/C Order can be placed): Senior Living Facility
--- NOTE | 2022-07-23 13:19 | CASEMGMT ---
Patient is ready for discharge today. IMAN called patient's brother/guardian Umang and let him know. He thanked IMAN for the update. Debra LIAO
--- NOTE | 2022-07-23 15:02 | CASEMGMT ---
IMAN sent orders and COVID test to [facility]. IMAN arranged for patient to get picked up at 1600 via cot by [facility]. IMAN notified Odilia and she will notify facility and RN. Plan: d/c back to [facility] under intermediate level of care. [facility] transported via cot. Debra Hernandez MSW KESHAWN
--- NOTE | 2022-07-23 15:17 | NURSING ---
Report called to nurse Shreya for pt to be d/c back to [facility]
--- NOTE | 2022-07-23 17:28 | DS.PCM_ITS ---
Providers Date of Admission: 07/21/22 Date of Discharge: 07/23/22 Primary Care Physician: Dr. Bernard Hankins MD Consultations 07/22/22 00:21 Consult: Cardiology Routine Consulting Provider: Chong Herrera Reason for Consult: NSTEMI EMERGENT Consult: No MD Notified: Yes Date Notified: 07/21/22 Time Notified: 23:57 Method of Notification: Text Reason For Visit: NSTEMI, DEBILITY/WEAKNESS, FTT ADULT Diagnosis Discharge Diagnosis (1) NSTEMI, initial episode of care: Status: Acute Code(s): I21.4 - Non-ST elevation (NSTEMI) myocardial infarction (2) HLD (hyperlipidemia): Status: Acute Code(s): E78.5 - Hyperlipidemia, unspecified (3) HTN (hypertension): Status: Chronic Code(s): I10 - Essential (primary) hypertension (4) Hypothyroidism: Status: Acute Code(s): E03.9 - Hypothyroidism, unspecified (5) Diabetes mellitus: Status: Acute Code(s): E11.9 - Type 2 diabetes mellitus without complications (6) Renal insufficiency: Status: Acute Code(s): N28.9 - Disorder of kidney and ureter, unspecified (7) Altered mental status: Status: Acute Code(s): R41.82 - Altered mental status, unspecified Plan 1. Acute NSTEMI 2. ? Acute encephalopathy, in a patient with history of schizophrenia 3. Hypertension 4. Hyperlipidemia 5. Type II DM 6. Anxiety and depression/schizophrenia 7. Chronic Kidney Disease Stage III unclear subtype 8. Hypothyroidism Medications at Discharge Home Medications albuterol sulfate 0.63 mg/3 mL solution for nebulization 0.63 mg inhalation Q4H PRN Shortness Of Breath 07/21/22 aripiprazole 20 mg tablet (Abilify) 20 mg PO DAILY 07/21/22 aspirin 81 mg tablet 81 mg PO DAILY 07/21/22 atorvastatin 80 mg tablet 80 mg PO QHS 07/21/22 cholecalciferol (vitamin D3) 50 mcg (2,000 unit) tablet 50 mcg PO DAILY 07/21/22 divalproex 250 mg tablet,extended release 24 hr (Depakote ER) 250 mg PO BID 07/21/22 divalproex 500 mg tablet,extended release 24 hr (Depakote ER) 1,500 mg PO QHS 07/21/22 dulaglutide 3 mg/0.5 mL subcutaneous pen injector (Trulicity) 3 mg subcut QWEEK 07/21/22 ferrous sulfate 325 mg (65 mg iron) tablet 325 mg PO DAILY 07/21/22 furosemide 40 mg tablet (Lasix) 40 mg PO DAILY 07/21/22 haloperidol 2 mg tablet 2 mg PO TID 07/21/22 haloperidol 5 mg tablet 5 mg Q6H PRN PRN Agitation 07/21/22 insulin glargine 100 unit/mL subcutaneous cartridge 32 unit subcut QPM 07/21/22 insulin lispro 100 unit/mL subcutaneous cartridge (Humalog U-100 Insulin) 10 unit subcut TID 07/21/22 levothyroxine 50 mcg tablet 50 mcg PO DAILY 07/21/22 lorazepam 1 mg tablet (Ativan) 1 mg PO BID 07/21/22 lorazepam 1 mg tablet (Ativan) 1 mg Q6H PRN PRN agitation 07/21/22 losartan 100 mg tablet 100 mg PO DAILY 07/21/22 medroxyprogesterone 10 mg tablet (Provera) 10 mg BID 07/21/22 metformin 1,000 mg tablet 1,000 mg PO BID 07/21/22 trazodone 100 mg tablet 100 mg PO QHS 07/21/22 aspirin 81 mg tablet,delayed release 81 mg PO BREAKFAST 30 days #0 tabs 07/23/22 clopidogrel 75 mg tablet 75 mg PO DAILY 30 days #0 tabs 07/23/22 metoprolol tartrate 100 mg tablet 100 mg PO BID 30 days #0 tabs 07/23/22 Hospital Course Operations None Procedures 2-D Echocardiogram Summary of Care Provided Minutes Spent on Discharge: 35 Hospital Course: 61-year-old male with past medical history hypertension hyperlipidemia, schizophrenia, chronic anemia, type II DM, who is resident in [facility] who presented with progressive fatigue, lethargy and elevated heart rate. Patient had presented similarly when he had an acute NSTEMI and was encephalopathic at that time. His vitals in the emergency room where stable except for blood pressure 154/82. His admitting blood work was significant for an initial troponin of 570. BNP was 98.5, valproic acid was 93. Chest x-ray was unremarkable. EKG showed no acute ST changes. Patient was admitted to the progressive care unit and managed as acute non- STEMI. He received IV heparin and aspirin. Cardiology was consulted. Initial d iscussion by cardiology with patient's legal guardian was that for cardiac catheterization. 2D echo showed EF of 55%, indeterminate diastolic dysfunction. Upon further discussion with family, family elected not to have any aggressive work-up. Recommended conservative therapy. Patient was discharged on aspirin and Plavix(for 1 month), as well as statin, metoprolol. He will follow-up with cardiology within 2 weeks. He will follow-up with his primary care doctor also within 1 week. Patient was discharged back to his [facility] longterm. Physical Exam Narrative Physical exam: General: Alert, Oriented xself, Cooperative, No apparent distress HEENT: Atraumatic Oral: Moist Mucosa Neck: Supple Lungs: Diminished to auscultation Cardiovascular: HS I+II, regular, no murmurs Abdomen: Bowel Sounds Present, Soft, Non Tender Extremities: No edema Skin: No rashes, No breakdown Neurological: Grossly intact Psych/Mental Status: Appropriate Weight / BMI Weight Weight: 102.7 kg Body Mass Index (BMI) 32.1 ABG / Lab / Microbiology Data Result Diagrams: 07/23/22 05:20 07/23/22 05:20 Laboratory: Laboratory Results - last 24 hr 07/22/22 21:29: APTT 46.2 H 07/22/22 22:21: POC Glucose 129 H 07/23/22 05:20: WBC 7.8, RBC 3.86 L, Hgb 11.0 L, Hct 34.7 L, MCV 89.9, MCH 28.5, MCHC 31.7 L, RDW Std Deviation 51.1 H, RDW Coeff of Saman 15.5 H, Plt Count 333, MPV 11.1, Immature Gran % (Auto) 0.300, Neut % (Auto) 59.4, Lymph % (Auto) 17.2 L, [place] % (Auto) 12.4 H, Eos % (Auto) 10.2 H, Baso % (Auto) 0.5, Absolute Neuts (auto) 4.6, Absolute Lymphs (auto) 1.33, Nucleated RBC % 0 07/23/22 05:20: Sodium 139, Potassium 4.6, Chloride 105, Carbon Dioxide 26.0, Anion Gap 8, BUN 25 H, Creatinine 1.51 H, Estim Creat Clear Calc 54.96, Est GFR (MDRD) Af Amer 60, Est GFR (MDRD) Non-Af 50 L, BUN/Creatinine Ratio 16.6, Glucose 237 H, Calcium 8.7 07/23/22 05:20: APTT 32.6 07/23/22 08:44: POC Glucose 237 H 07/23/22 11:18: POC Glucose 202 H Microbiology: Microbiology 07/23/22 12:00 Nasal Secretion SARS-CoV-2 Antigen (Rapid) - Final D/C Instructions Discharge Diet: Low fat / Low cholesterol and 2000 mg Sodium Diet Discharge Activity: Return to Normal Activity Meaningful Use Info Meaningful Use Diagnoses (Choose all that apply): AMI AMI/Post PCI/Angioplasty Aspirin given w/in 24hrs of arrival?: Yes ASA at discharge?: Yes Antiplatelet Therapy at Discharge:: Yes Statins at discharge?: Yes Stas/ARB at discharge?: No Reason Stas/ARB not ordered:: Worsening renal dysfunctn Beta Suzy at discharge?: Yes Done w/ Acute TN measure.: Yes Discharge Plan Admission Admit Date/Time: 07/21/22 23:56 Primary Reason for Your Visit: Acute NSTEMI Attending Provider: Angie Rodriguez Primary Care Provider: Bernard Hankins Consulting Providers: Chong Herrera ; Angelina Campbell Instructions Additional Instructions / Restrictions: Take note of changes to his medications Patient will be on Plavix for 1 month Follow-up with cardiology within 1 month Discharge Orders/Prescriptions Prescriptions: New metoprolol tartrate 100 mg Tablet 100 mg PO BID 30 Days Qty: 0 0RF clopidogrel 75 mg Tablet 75 mg PO DAILY 30 Days Qty: 0 0RF aspirin 81 mg Tablet,Delayed Release (Dr/Ec) 81 mg PO BREAKFAST 30 Days Qty: 0 0RF Continued furosemide [Lasix] 40 mg Tablet 40 mg PO DAILY albuterol sulfate 0.63 mg/3 mL Solution For Nebulization 0.63 mg INHALATION Q4H PRN (Reason: Shortness Of Breath) atorvastatin 80 mg Tablet 80 mg PO QHS haloperidol 5 mg Tablet 5 mg Q6H PRN PRN (Reason: Agitation) levothyroxine 50 mcg Tablet 50 mcg PO DAILY ferrous sulfate 325 mg (65 mg iron) Tablet 325 mg PO DAILY metformin 1,000 mg Tablet 1,000 mg PO BID divalproex [Depakote ER] 500 mg Tablet Extended Release 24 Hr 1,500 mg PO QHS aspirin 81 mg Tablet 81 mg PO DAILY lorazepam [Ativan] 1 mg Tablet 1 mg Q6H PRN PRN (Reason: agitation) lorazepam [Ativan] 1 mg Tablet 1 mg PO BID haloperidol 2 mg Tablet 2 mg PO TID losartan 100 mg Tablet 100 mg PO DAILY Humalog U-100 Insulin 100 unit/mL Cartridge 10 unit SUBCUT TID aripiprazole [Abilify] 20 mg Tablet 20 mg PO DAILY divalproex [Depakote ER] 250 mg Tablet Extended Release 24 Hr 250 mg PO BID insulin glargine 100 unit/mL Cartridge 32 unit SUBCUT QPM medroxyprogesterone [Provera] 10 mg Tablet 10 mg BID trazodone 100 mg Tablet 100 mg PO QHS cholecalciferol (vitamin D3) 50 mcg (2,000 unit) Tablet 50 mcg PO DAILY Trulicity 3 mg/0.5 mL Pen Injector 3 mg SUBCUT QWEEK Rx Instructions: tuesdays Discontinued metoprolol tartrate 50 mg Tablet 50 mg PO BID Referrals / Follow Up: Chong Herrera MD [Med Staff - Active Staff] - Within 1 Month Bernard Hankins MD [Primary Care Provider] - Within 1 Week Disposition Disposition (needs filled in before D/C Order can be placed): Shelter Facility Charges/Coding Visit Charges Inpatient E&M: 14593 Disch Hosp
== END 2022-07-23 16:25 | disposition skilled nursing facility (03) | DRG 281 ==
LOC: ED 23:31 → PCU 07-22 00:06
PROVIDERS: Internal Medicine Cardiovascular Disease; Admitting Provider Family Medicine; Emergency Provider Student in an Organized Health Care Education/Training Program; PCP Family Medicine; Visit Provider Internal Medicine
DX: I21.4 Non-ST elevation (NSTEMI) myocardial infarction (principal); G93.40 Encephalopathy, unspecified; D63.8 Anemia in other chronic diseases classified elsewhere; E11.22 Type 2 diabetes mellitus with diabetic chronic kidney disease; D50.9 Iron deficiency anemia, unspecified; E03.9 Hypothyroidism, unspecified; F20.9 Schizophrenia, unspecified; Z79.4 Long term (current) use of insulin; N18.30 Chronic kidney disease, stage 3 unspecified; E78.5 Hyperlipidemia, unspecified; I12.9 Hypertensive chronic kidney disease with stage 1 through stage 4 chronic kidney disease, or unspecified chronic kidney disease; F17.210 Nicotine dependence, cigarettes, uncomplicated; Z51.5 Encounter for palliative care; H91.90 Unspecified hearing loss, unspecified ear; Z66 Do not resuscitate; Z79.82 Long term (current) use of aspirin; F32.A Depression, unspecified
CPT/HCPCS: 36415; 70450; 71045; 80048; 80053; 80061; 80164; 81001; 82962; 83735; 83880; 84484; 85025; 85610; 85730; 87426; 87635; 93005; 93306; 99285; 99406; J7030; A4216; U0003; U0005

== ENCOUNTER 2023-06-21 23:49 | Emergency (ER) | payer MEDICARE, MEDICAID, SELFPAY ==
[2023-06-21 23:50] VITALS: BP 148/90; PULSE 79; RESP 15; TEMP 36.1; O2SAT 98; BMI 31.0
[2023-06-22 00:13] LABS: Bedside Glucose 89 mg/dL (74-106)
--- NOTE | 2023-06-22 00:27 | EX.ED.DYSGE1 ---
HPI History of Present Illness Chief Complaint: Hypoglycemia Narrative Narrative: History and physical is mildly limited secondary to dementia and psychiatric problem. [facility] He has past medical history of type 2 diabetes but does not take insulin. He relates history that he woke up sick. He denies any nausea or vomiting, no fever, but according to EMS, blood sugar was 54. He had complained of the chills. He was given glucagon and his blood sugar was in the 70s afterwards. Patient believes he ate dinner yesterday evening. He denies any chest pain, shortness of breath, nausea, vomiting, or other symptoms. PFSH PFSH Medical History Anxiety and depression Anxiety and depression Chronic anemia Chronic anemia CKD (chronic kidney disease), stage III CKD (chronic kidney disease), stage III Congestive heart failure (CHF) COPD (chronic obstructive pulmonary disease) Diabetes mellitus Diabetes mellitus, type 2 Diabetes mellitus, type 2 Fe deficiency anemia HLD (hyperlipidemia) HLD (hyperlipidemia) HLD (hyperlipidemia) HTN (hypertension) HTN (hypertension) HTN (hypertension) Hx of non-ST elevation myocardial infarction (NSTEMI) Hypothyroidism Hypothyroidism Hypothyroidism PVD (peripheral vascular disease) Renal insufficiency Schizophrenia Schizophrenia Tobacco use Tobacco use Home Medications aripiprazole 20 mg tablet 20 mg PO DAILY schizophrenia 07/25/19 [History Last Taken 07/25/19] atorvastatin 80 mg tablet 80 mg PO DAILY 07/25/19 [History Last Taken 07/24/19] cholecalciferol (vitamin D3) 50 mcg (2,000 unit) capsule 2,000 unit PO DAILY 07/25/19 [History Last Taken 07/25/19] haloperidol 5 mg tablet 5 mg PO Q6H PRN PRN Agitation 07/25/19 [History Last Taken 07/18/19] insulin lispro 100 unit/mL subcutaneous cartridge 10 unit SQ TID 07/25/19 [History Last Taken 07/24/19] levothyroxine 50 mcg tablet 50 mcg PO DAILY 07/25/19 [History Last Taken 07/25/19] lorazepam 1 mg tablet 1 mg PO BID 07/25/19 [History Last Taken 07/25/19] lorazepam 1 mg tablet 1 mg PO Q6H PRN PRN Agitation 07/25/19 [History Last Taken 07/18/19] metformin 1,000 mg tablet 1,000 mg PO BID 07/25/19 [History Last Taken 07/25/19] trazodone 100 mg tablet 100 mg PO QHS 07/25/19 [History Last Taken 07/24/19] albuterol sulfate 0.63 mg/3 mL solution for nebulization 0.63 mg inhalation Q4H PRN PRN Wheezing 09/23/21 [History Last Taken Unknown] losartan 100 mg tablet 100 mg PO DAILY 09/23/21 [History Last Taken Unknown] aluminum-mag hydroxide-simethicone 400 mg-400 mg-40 mg/5 mL oral susp (Mylanta Maximum Strength) 15 ml PO Q4H PRN heartburn/indigestion 09/24/21 [History Last Taken Unknown] magnesium hydroxide 400 mg/5 mL oral suspension (Milk of Magnesia) 30 ml PO DAILY PRN Constipation 09/24/21 [History Last Taken Unknown] nicotine (polacrilex) 2 mg buccal lozenge 2 mg buccal Q2H PRN smoking alternative 09/24/21 [History Last Taken Unknown] acetaminophen 325 mg tablet (Tylenol) 325 mg PO ONCE PRN 11/10/21 [History Last Taken Unknown] albuterol sulfate 0.63 mg/3 mL solution for nebulization 0.63 mg inhalation Q4H PRN Shortness Of Breath 07/21/22 [History Last Taken Unknown] aspirin 81 mg tablet 81 mg PO DAILY 07/21/22 [History Last Taken Unknown] ferrous sulfate 325 mg (65 mg iron) tablet 325 mg PO DAILY 07/21/22 [History Last Taken Unknown] haloperidol 2 mg tablet 2 mg PO TID 07/21/22 [History Last Taken Unknown] insulin glargine 100 unit/mL subcutaneous cartridge 32 unit subcut QPM 07/21/22 [History Last Taken Unknown] medroxyprogesterone 10 mg tablet (Provera) 10 mg BID 07/21/22 [History Last Taken Unknown] metoprolol tartrate 100 mg tablet 100 mg PO BID 30 days #0 tabs 07/23/22 [Rx Last Taken Unknown] divalproex 250 mg tablet,delayed release (Depakote) 250 mg PO BID 08/11/22 [History Last Taken Unknown] furosemide 40 mg tablet (Lasix) 40 mg PO DAILY 08/11/22 [History Last Taken Unknown] amlodipine 5 mg tablet 5 mg PO DAILY #90 tabs 08/30/22 [Rx Last Taken Unknown] divalproex 500 mg tablet,extended release 24 hr (Depakote ER) 1,250 mg PO QHS 11/16/22 [History Last Taken Unknown] dulaglutide 3 mg/0.5 mL subcutaneous pen injector (Trulicity) 4.5 mg subcut QWEEK 11/16/22 [History Last Taken Unknown] Allergy/AdvReac Type Severity Reaction Status Date / Time No Known Allergies Allergy Verified 11/16/22 14:15 Family History Mother No family history of disorders Father No family history of disorders Surgical History No history of previous surgery No history of previous surgery Social History household members: other details: [facility]. housing: other details: [facility]. Smoking Status: Current every day smoker tobacco type: cigarettes alcohol intake: never substance use type: does not use ROS ROS ED ROS Narrative Limited secondary to dementia and psychiatric problem. Constitutional: No fever, no chills, but feels cold. HEENT: No sore throat. No neck pain. No loss of vision. No rhinorrhea. Cardiovascular: No chest pain. No palpitations. No pedal edema. Respiratory: No cough, no shortness of breath. Abdominal: No abdominal pain. No nausea. No vomiting. Genitourinary: No dysuria. No hematuria. Musculoskeletal: No myalgias. No arthralgias. Neurologic: No headaches. No dizziness. No lightheadedness. Skin: No rash. No change in color. Psychiatric: No depression. No anxiety. EXAM Physical Exam Narrative Exam Narrative: Afebrile. Vital signs noted. HEENT: Normocephalic. Atraumatic. PERRL, EOMI. Neck soft and supple. No point tenderness or step off. Cardiovascular: Regular rate and rhythm. No murmurs, rubs, or gallops appreciated. Respiratory: No tachypnea. Lungs clear to auscultation bilaterally. Gastrointestinal: Abdomen soft, nontender, with normoactive bowel sounds. No rebound or guarding. Neurological: Awake. Alert. Oriented to person. This is his baseline reportedly. Nonfocal, nonlateralizing. Skin: No rash. Normal color. No pallor. Musculoskeletal: No pedal edema. Full range of motion extremities. Const Vital Signs: 06/21/23 23:50 06/22/23 00:06 06/22/23 01:49 Temperature 96.9 F L Temperature Source Temporal Pulse Rate 79 Respiratory Rate 15 Respiratory Effort Normal Non-Labored Respiratory Pattern Normal Blood Pressure 148/90 H Blood Pressure Mean 109 Pulse Ox 98 Oxygen Delivery Method Room Air Room Air 06/22/23 02:21 Temperature Temperature Source Pulse Rate 82 Respiratory Rate 15 Respiratory Effort Respiratory Pattern Blood Pressure 178/84 H Blood Pressure Mean 115 Pulse Ox 99 Oxygen Delivery Method Room Air MDM MDM MDM Narrative Medical decision making narrative: Patient will be given a regular diet and his blood sugar checked afterwards. I did review his group home paperwork, however, and it appears that he does take regular insulin along with Jardiance, and Lantus, with metformin. Dosages are unavailable. He did eat a few items here in the emergency department and his blood sugar was rechecked and was only 44. However, he is mentating currently. IV was started and he was administered 1 amp of D50. His kbutf-ou-hydo glucose had been checked at 2355, and was 89. I am unsure as to why he had such a precipitous drop, even though he was able to tolerate a p.o. challenge. After D50, his blood sugar will be checked, and he may require infusion of D10. The D10 was started very briefly at 150 mL/h. However, his blood sugar check was 202 after D50. Infusion was stopped, and as he had eaten, he was given ample time and his blood sugar rechecked at 199. At this point in time, I do feel that he can be [facility]. Additionally, instructions were given to have his blood sugar checked prior to administration of any antidiabetic medication/hypoglycemic including insulin and metformin. He was reminded to eat properly throughout the day. I feel he can be discharged safely back to the [facility] facility. Return instructions to the emergency department were reviewed. Disposition is discharged home in stable condition. Lab Data Labs: Laboratory Results - last 24 hr 06/21/23 06/22/23 06/22/23 23:55 01:22 01:58 POC Glucose 89 44 L* 202 H Discharge Plan Triage Chief Complaint: Hypoglycemia ED Provider: Reodica,Efrain Dx/Rx/DC Orders Clinical Impression: Diabetes mellitus, Hypoglycemia Instructions: ED Hypoglycemia Oral Diabetic ..., ED Diabetic Insulin Reaction Prescriptions: No Action acetaminophen [Tylenol] 325 mg tablet 325 mg PO ONCE PRN furosemide [Lasix] 40 mg tablet 40 mg PO DAILY divalproex [Depakote] 250 mg tablet,delayed release (DR/EC) 250 mg PO BID aripiprazole 20 MG tablet 20 mg PO DAILY atorvastatin 80 MG tablet 80 mg PO DAILY lorazepam 1 MG tablet 1 mg PO Q6H PRN PRN (Reason: Agitation) lorazepam 1 MG tablet 1 mg PO BID haloperidol 5 MG tablet 5 mg PO Q6H PRN PRN (Reason: Agitation) trazodone 100 MG tablet 100 mg PO QHS levothyroxine 50 MCG tablet 50 mcg PO DAILY metformin 1,000 MG tablet 1,000 mg PO BID insulin lispro 100 UNIT/ML cartridge 10 unit SQ TID cholecalciferol (vitamin D3) 2,000 UNIT capsule 2,000 unit PO DAILY albuterol sulfate 0.63 mg/3 mL solution for nebulization 0.63 mg inhalation Q4H PRN PRN (Reason: Wheezing) losartan 100 mg tablet 100 mg PO DAILY magnesium hydroxide [Milk of Magnesia] 400 mg/5 mL Suspension 30 ml PO DAILY PRN (Reason: Constipation) alum-mag hydroxide-simeth [Mylanta Maximum Strength] 400-400-40 mg/5 mL Suspension 15 ml PO Q4H PRN (Reason: heartburn/indigestion) nicotine (polacrilex) 2 mg Lozenge 2 mg BUCCAL Q2H PRN (Reason: smoking alternative) albuterol sulfate 0.63 mg/3 mL Solution For Nebulization 0.63 mg INHALATION Q4H PRN (Reason: Shortness Of Breath) ferrous sulfate 325 mg (65 mg iron) Tablet 325 mg PO DAILY aspirin 81 mg Tablet 81 mg PO DAILY haloperidol 2 mg Tablet 2 mg PO TID insulin glargine 100 unit/mL Cartridge 32 unit SUBCUT QPM medroxyprogesterone [Provera] 10 mg Tablet 10 mg BID metoprolol tartrate 100 mg Tablet 100 mg PO BID 30 Days Qty: 0 0RF divalproex [Depakote ER] 500 mg tablet extended release 24 hr 1,250 mg PO QHS Trulicity 3 mg/0.5 mL pen injector 4.5 mg SUBCUT QWEEK Rx Instructions: tuesdays amlodipine 5 mg tablet 5 mg PO DAILY Qty: 90 0RF Primary Care Provider: Bernard Hankins Referrals: Bernard Hankins MD [Primary Care Provider] - Activity Restrictions/Additional Instructions: Have your blood sugar checked prior to administration of any insulin or metformin, or other antidiabetic medication. Make sure you are eating the proper amount throughout the day. Disposition Disposition: Home, Self Care
[2023-06-22] MEDS: Dextrose 50%-Water 25 GM/50 ML DISP.SYRIN IV (01:32)
[2023-06-22 01:41] LABS: Bedside Glucose 44 mg/dL (74-106)
[2023-06-22] MEDS: Dextrose 10%-Water 250 ML 150 ML IV (02:06)
[2023-06-22 02:16] LABS: Bedside Glucose 202 mg/dL (74-106)
[2023-06-22 02:21] VITALS: BP 178/84; PULSE 82; RESP 15; O2SAT 99
[2023-06-22 03:05] LABS: Bedside Glucose 199 mg/dL (74-106)
[2023-06-22 03:46] VITALS: BP 178/81; PULSE 76; RESP 16; O2SAT 98
[2023-06-22 04:02] LABS: Bedside Glucose 178 mg/dL (74-106)
== END 2023-06-22 03:49 | disposition skilled nursing facility (03) ==
PROVIDERS: Emergency Provider Emergency Medicine; PCP Family Medicine; Visit Provider Emergency Medicine
DX: E11.649 Type 2 diabetes mellitus with hypoglycemia without coma (principal); E11.51 Type 2 diabetes mellitus with diabetic peripheral angiopathy without gangrene; J44.9 Chronic obstructive pulmonary disease, unspecified; I50.9 Heart failure, unspecified; E11.22 Type 2 diabetes mellitus with diabetic chronic kidney disease; N18.30 Chronic kidney disease, stage 3 unspecified; I25.2 Old myocardial infarction; F17.210 Nicotine dependence, cigarettes, uncomplicated
CPT/HCPCS: 82962; 96361; 96374; 99285; A4216

== ENCOUNTER 2023-11-18 22:22 | Inpatient (IN) | payer MEDICARE, MEDICAID, SELFPAY ==
[2023-11-18 22:23] VITALS: BP 137/63; PULSE 79; RESP 26; TEMP 35.9; O2SAT 100; O2SAT 96; BMI 30.2
[2023-11-18 22:27] VITALS: BP 143/62; PULSE 79; RESP 26; TEMP 35.9; O2SAT 90
--- NOTE | 2023-11-18 22:42 | EKG12_ITS ---
Test Reason : Blood Pressure : / mmHG Vent. Rate : 074 BPM Atrial Rate : 074 BPM P-R Int : 132 ms QRS Dur : 084 ms QT Int : 374 ms P-R-T Axes : 064 069 070 degrees QTc Int : 415 ms Normal sinus rhythm with sinus arrhythmia Normal ECG Confirmed by Tano Soria ([id number]), school photograph editor MERRY BLANCO ([id number]) on 11/22/2023 7:10:52 AM Referred By: Fred Vargas Confirmed By:Tano Soria
--- NOTE | 2023-11-18 22:43 | ED.VIS.DYS ---
HPI History of Present Illness Chief Complaint: Shortness of Breath Informant: patient, EMS and SNF Narrative Narrative: Patient is a 63-year-old male with history of schizophrenia, dementia, hypertension, hyperlipidemia, hypothyroidism, diabetes mellitus and CHF as well as COPD presenting with increased drowsiness, increased work of breathing and hyperglycemia. Patient is a resident of [facility] and they called EMS for his shortness of breath. Did receive a DuoNeb and route. Is noted to be more drowsy throughout the day. Glucose initially was in the 500s but after giving insulin blood sugar improved to the 200s. Patient is asked if he has any complaints he says no and that he feels fine. EMS reports that he was a wheezing and while it improved was still present upon their arrival. Patient does not wear supplemental oxygen at baseline. PFSH PFSH Medical History Anxiety and depression Anxiety and depression Chronic anemia Chronic anemia CKD (chronic kidney disease), stage III CKD (chronic kidney disease), stage III Congestive heart failure (CHF) COPD (chronic obstructive pulmonary disease) Diabetes mellitus Diabetes mellitus, type 2 Diabetes mellitus, type 2 Fe deficiency anemia HLD (hyperlipidemia) HLD (hyperlipidemia) HLD (hyperlipidemia) HTN (hypertension) HTN (hypertension) HTN (hypertension) Hx of non-ST elevation myocardial infarction (NSTEMI) Hypothyroidism Hypothyroidism Hypothyroidism PVD (peripheral vascular disease) Renal insufficiency Schizophrenia Schizophrenia Tobacco use Tobacco use Home Medications aripiprazole 20 mg tablet 20 mg PO DAILY schizophrenia 07/25/19 [History Last Taken 07/25/19] atorvastatin 80 mg tablet 80 mg PO DAILY 07/25/19 [History Last Taken 07/24/19] cholecalciferol (vitamin D3) 50 mcg (2,000 unit) capsule 2,000 unit PO DAILY 07/25/19 [History Last Taken 07/25/19] haloperidol 5 mg tablet 5 mg PO Q6H PRN PRN Agitation 07/25/19 [History Last Taken 07/18/19] levothyroxine 50 mcg tablet 50 mcg PO DAILY 07/25/19 [History Last Taken 07/25/19] lorazepam 1 mg tablet 1 mg PO Q6H PRN PRN Agitation 07/25/19 [History Last Taken 07/18/19] metformin 1,000 mg tablet 1,000 mg PO BID 07/25/19 [History Last Taken 07/25/19] trazodone 100 mg tablet 100 mg PO QHS 07/25/19 [History Last Taken 07/24/19] albuterol sulfate 0.63 mg/3 mL solution for nebulization 0.63 mg inhalation Q4H PRN PRN Wheezing 09/23/21 [History Last Taken Unknown] losartan 100 mg tablet 100 mg PO DAILY 09/23/21 [History Last Taken Unknown] aluminum-mag hydroxide-simethicone 400 mg-400 mg-40 mg/5 mL oral susp (Mylanta Maximum Strength) 15 ml PO Q4H PRN heartburn/indigestion 09/24/21 [History Last Taken Unknown] magnesium hydroxide 400 mg/5 mL oral suspension (Milk of Magnesia) 30 ml PO DAILY PRN Constipation 09/24/21 [History Last Taken Unknown] nicotine (polacrilex) 2 mg buccal lozenge 2 mg buccal Q2H PRN smoking alternative 09/24/21 [History Last Taken Unknown] acetaminophen 325 mg tablet (Tylenol) 325 mg PO ONCE PRN 11/10/21 [History Last Taken Unknown] ferrous sulfate 325 mg (65 mg iron) tablet 325 mg PO DAILY 07/21/22 [History Last Taken Unknown] haloperidol 2 mg tablet 2 mg PO TID 07/21/22 [History Last Taken Unknown] metoprolol tartrate 100 mg tablet 100 mg PO BID 30 days #0 tabs 07/23/22 [Rx Last Taken Unknown] divalproex 250 mg tablet,delayed release (Depakote) 250 mg PO BID 08/11/22 [History Last Taken Unknown] furosemide 40 mg tablet (Lasix) 40 mg PO DAILY 08/11/22 [History Last Taken Unknown] amlodipine 5 mg tablet 5 mg PO DAILY #90 tabs 08/30/22 [Rx Last Taken Unknown] divalproex 500 mg tablet,extended release 24 hr (Depakote ER) 500 mg PO BID 07/20/23 [History Last Taken Unknown] empagliflozin 25 mg tablet (Jardiance) 25 mg PO DAILY 07/20/23 [History Last Taken Unknown] insulin glargine 100 unit/mL subcutaneous cartridge 35 unit subcut QPM 07/20/23 [History Last Taken Unknown] insulin lispro 100 unit/mL subcutaneous cartridge 12 unit subcut TID 07/20/23 [History Last Taken Unknown] lorazepam 1 mg tablet 1 mg PO BID 07/20/23 [History Last Taken Unknown] medroxyprogesterone 10 mg tablet (Provera) 10 mg PO BID 07/20/23 [History Last Taken Unknown] Allergy/AdvReac Type Severity Reaction Status Date / Time No Known Allergies Allergy Verified 11/18/23 22:23 Family History Mother No family history of disorders Father No family history of disorders Surgical History No history of previous surgery No history of previous surgery Social History household members: other details: [facility]. housing: other details: [facility]. Smoking Status: Current every day smoker tobacco type: cigarettes alcohol intake: never substance use type: does not use ROS ROS ED ROS Narrative Review of systems limited secondary to patient's dementia Review of Systems ROS Unobtainable: due to mental status Constitutional Constitutional ED: Denies chills or fever(s) Respiratory/Chest Respiratory/Chest: Reports cough and dyspnea Gastrointestinal Gastrointestinal: Denies abdominal pain EXAM Physical Exam Const Vital Signs: 11/18/23 22:23 11/18/23 22:27 11/18/23 22:31 Temperature 96.7 F L 96.7 F L Temperature Source Temporal Temporal Pulse Rate 79 79 Respiratory Rate 26 H 26 H Respiratory Effort Short of Breath Respiratory Pattern Tachypnea Blood Pressure 137/63 H 143/62 H Blood Pressure Mean 87 89 Pulse Ox 96 90 Oxygen Delivery Method Room Air 11/18/23 22:44 11/18/23 23:10 11/18/23 23:27 Temperature 98 F Temperature Source Temporal Pulse Rate 74 80 Respiratory Rate 24 H 28 H Respiratory Effort Respiratory Pattern Tachypnea Blood Pressure 156/75 H Blood Pressure Mean 102 Pulse Ox 97 Oxygen Delivery Method Room Air Room Air 11/18/23 23:54 11/18/23 23:55 Temperature 97.8 F Temperature Source Pulse Rate 77 Respiratory Rate 28 H Respiratory Effort Respiratory Pattern Blood Pressure 148/82 H Blood Pressure Mean 104 Pulse Ox 90 97 Oxygen Delivery Method Room Air Positive well nourished and well developed General Appearance ED: well developed and NAD HEENT Reports moist mucous membranes Eyes PERRL Neck supple and no JVD Resp Resp Narrative: Tachypneic, scattered wheezing. Diminished breath sounds at the bases. Slightly increased work of breathing present Auscultation: wheezes and diminished lung sounds Cardio regular rate, regular rhythm and no murmurs GI non-tender and non-distended Auscultation: normoactive bowel sounds Palpation: soft; Negative for guarding Extremity normal to inspection Extremity Narrative: Chronic venous stasis changes to the extremities. Mild pretibial edema present. Neuro Neuro Narrative: Speech slightly slow to respond, generally weak. No focal deficits appreciated Sensorium / Orientation: alert and oriented to person Psych mental status grossly normal Skin no wounds MDM MDM MDM Narrative Medical decision making narrative: Patient is evaluated for report of increased work of breathing, increased somnolence/sleepiness at nursing facility as well as hyperglycemia. Patient is wheezing on exam. Differential includes influenza, COVID-19 infection, pneumonia, fluid overload/CHF exacerbation, and COPD exacerbation. Also differential includes a metabolic abnormality such as hypoglycemia, DKA and JULIETTE. Will defer entire IV fluids at this time as patient does have a history of CHF. Patient is given a DuoNeb in the emergency room and will reevaluate. ABG obtained shows very mild metabolic acidosis with some hypoxia. I do not think he requires BiPAP and he does not have hypercapnia at this time. CBC is largely normal with mild anemia I do not think it is associated with his symptoms today. He is positive for influenza A which likely is causing his respiratory symptoms. He is given Solu-Medrol in the emergency room as a suspect he is having a COPD exacerbation secondary to influenza infection. In addition patient does have an elevated creatinine of 2.41. Most recent labs I have to review from 2021 shows baseline creatinine be 1.5. Patient started on gentle IV fluids as he does have a history of CHF. Is started on renally adjusted Tamiflu for new symptoms of influenza. First dose given in the ER of 75 mg. Patient will be admitted for further respiratory monitoring, treatment and monitoring of his kidney function. He remains hemodynamically stable in the ER. EKG does not show any acute ischemic changes and I do not think requires serial troponins at this time. Lab Data Attestation: I reviewed the patient's lab results. Labs: Laboratory Results - last 24 hr 11/18/23 22:35 WBC 6.0 RBC 4.24 L Hgb 11.5 L Hct 37.7 L MCV 88.9 MCH 27.1 MCHC 30.5 L RDW Std Deviation 52.0 H RDW Coeff of Saman 16.0 H Plt Count 330 MPV 11.9 Immature Gran % (Auto) 0.300 Neut % (Auto) 72.5 H Lymph % (Auto) 10.8 L Louisa % (Auto) 15.8 H Eos % (Auto) 0.3 Baso % (Auto) 0.3 Absolute Neuts (auto) 4.3 Absolute Lymphs (auto) 0.65 L Nucleated RBC % 0 Sodium 142 Potassium 4.9 Chloride 109 H Carbon Dioxide 27.0 Anion Gap 6 BUN 54 H Creatinine 2.41 H Estim Creat Clear Calc 37.62 Est GFR (MDRD) Af Amer 35 L Est GFR (MDRD) Non-Af 29 L BUN/Creatinine Ratio 22.4 H Glucose 165 H Calcium 8.7 B-Natriuretic Peptide 54.1 ABG Data ABG results: ABG 11/18/23 23:21 Specimen Type ART Sample Site R Radial pH 7.33 L Bicarbonate Actual 22.8 Total CO2 24 Base Excess -3 L O2 Saturation 91 L ABG pCO2 43.0 ABG pO2 64 L Polo Test Positive O2 Delivery Device Not entered Vent Mode Not entered Radiography Chest X-Ray - ED: 1 View, Read by ED Physician, Read by Radiologist and No Acute Disease Diagnostic Testing: Clinical Impression(s) from Imaging Studies Chest X-Ray 11/18/23 22:45 IMPRESSION: Normal x-ray examination of the chest. 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 pneumonia Reason(s) pneumonia less likely: Positive for no infiltrate on CXR and no elevation in WBC count Management Discussion w/another healthcare provider: Hospitalist Discharge Plan Triage Chief Complaint: Shortness of Breath ED Provider: Brittaney Russell Dx/Rx/DC Orders Clinical Impression: Influenza A, Renal insufficiency, Asthma exacerbation in COPD Prescriptions: No Action acetaminophen [Tylenol] 325 mg tablet 325 mg PO ONCE PRN Jardiance 25 mg tablet 25 mg PO DAILY lorazepam 1 mg tablet 1 mg PO BID medroxyprogesterone [Provera] 10 mg tablet 10 mg PO BID furosemide [Lasix] 40 mg tablet 40 mg PO DAILY divalproex [Depakote] 250 mg tablet,delayed release (DR/EC) 250 mg PO BID aripiprazole 20 MG tablet 20 mg PO DAILY atorvastatin 80 MG tablet 80 mg PO DAILY lorazepam 1 MG tablet 1 mg PO Q6H PRN PRN (Reason: Agitation) haloperidol 5 MG tablet 5 mg PO Q6H PRN PRN (Reason: Agitation) trazodone 100 MG tablet 100 mg PO QHS levothyroxine 50 MCG tablet 50 mcg PO DAILY metformin 1,000 MG tablet 1,000 mg PO BID cholecalciferol (vitamin D3) 2,000 UNIT capsule 2,000 unit PO DAILY insulin lispro 100 unit/mL cartridge 12 unit subcut TID albuterol sulfate 0.63 mg/3 mL solution for nebulization 0.63 mg inhalation Q4H PRN PRN (Reason: Wheezing) losartan 100 mg tablet 100 mg PO DAILY magnesium hydroxide [Milk of Magnesia] 400 mg/5 mL Suspension 30 ml PO DAILY PRN (Reason: Constipation) alum-mag hydroxide-simeth [Mylanta Maximum Strength] 400-400-40 mg/5 mL Suspension 15 ml PO Q4H PRN (Reason: heartburn/indigestion) nicotine (polacrilex) 2 mg Lozenge 2 mg BUCCAL Q2H PRN (Reason: smoking alternative) ferrous sulfate 325 mg (65 mg iron) Tablet 325 mg PO DAILY haloperidol 2 mg Tablet 2 mg PO TID metoprolol tartrate 100 mg Tablet 100 mg PO BID 30 Days Qty: 0 0RF divalproex [Depakote ER] 500 mg tablet extended release 24 hr 500 mg PO BID insulin glargine 100 unit/mL cartridge 35 unit SUBCUT QPM amlodipine 5 mg tablet 5 mg PO DAILY Qty: 90 0RF Primary Care Provider: Bernard Hankins Referrals: Bernard Hankins MD [Primary Care Provider] - Disposition Disposition: Acute Care Hospital [facility]
--- NOTE | 2023-11-18 22:45 | RAD_ITS ---
STUDY: X-RAY CHEST REASON FOR EXAM: Male, 63 years old. cough, sob TECHNIQUE: Single AP portable view of the chest. COMPARISON: 07/21/2022 FINDINGS: The lungs are clear and expanded. There is no demonstrated pleural abnormality. Normal size heart. Normal mediastinum and myesha. Normal visualized pulmonary arteries. Normal visualized aortic arch and descending thoracic aorta. Normal visualized thoracic spine. Normal visualized ribs, clavicles, and shoulders. There is no demonstrated abnormality of the visualized soft tissue structures of the upper abdomen. RAD/Chest 1 View (Portable) IMPRESSION: Normal x-ray examination of the chest. Electronically Signed: Eyad Reid MD at 23:01 EST ,
[2023-11-18 22:50] LABS: Absolute Lymphocyte Count 0.65 X10^3/uL (0.83-4.51); Absolute Neutrophil Count 4.3 X10^3/uL (2.0-7.7); Basophil# 0.02 X10^3/uL; Basophil% 0.3 % (0-1); Eosinophil# 0.02 X10^3/uL; Eosinophils% 0.3 % (0-5); Hematocrit 37.7 % (40-54); Hemoglobin 11.5 g/dL (13.0-16.5); Lymphocyte # 0.65 X10^3/ul (0.83-4.51); Lymphocyte % 10.8 % (19-41); Mean Corp Hgb Conc 30.5 g/dL (32-36); Mean Corpuscular Hgb 27.1 pg (27.0-32.0); Mean Corpuscular Volume 88.9 fL (80-94); Mean Platelet Vol. 11.9 fl (6.2-12.0); Monocyte# 0.95 X10^3/uL; Monocyte% 15.8 % (0-10); NRBC Flagged by Analyzer 0 % (0-5); Neutrophil # 4.34 X10^3/uL (2.7-7.7); Neutrophil % 72.5 % (47-70); Platelet Count 330 K/mm3 (150-450); Red Blood Count 4.24 M/mm3 (4.6-6.2)
[2023-11-18 23:04] LABS: Anion Gap 6 (5-15); BUN 54 mg/dL (7-18); BUN/Creat Ratio 22.4 RATIO (10-20); Calcium,Total 8.7 mg/dL (8.5-10.1); Chloride 109 mmol/L (98-107); Creatinine, Serum 2.41 mg/dL (0.70-1.30); EST Glomerular Filtration Rate 29 mL/min (>60); Est Glom Filt Rate - Afr Amer 35 mL/min (>60); Estimated Creatinine Clearance 37.62 ml/min; Glucose 165 mg/dL (74-106); Potassium 4.9 mmol/L (3.5-5.1); Sodium Level 142 mmol/L (136-145)
[2023-11-18] MEDS: Ipratropium/Albuterol Sulfate 3 ML AMPUL.NEB INHALATION (23:08)
[2023-11-18 23:10] VITALS: PULSE 74; RESP 24
[2023-11-18 23:20] LABS: BNP,B-Type NATRIURETIC PEPTIDE 54.1 pg/mL (0-100)
[2023-11-18 23:24] LABS: Allen Test Positive; Base Excess -3 mmol/L (-2 to +2); Bicarbonate 22.8 mmol/L (22-26); Blood Gas Specimen Type ART; Mode Not entered; O2 Delivery Device Not entered; PO2 64 mmHG (75-100); SITE R Radial; SO2 91 % (95-99); Total Carbon Dioxide 24 mmol/L; pH 7.33 (7.35-7.45)
[2023-11-18 23:27] VITALS: BP 156/75; PULSE 80; RESP 28; TEMP 36.6; O2SAT 97
[2023-11-18] MEDS: 0.9% Normal Saline (1000mL) 1,000 ML 150 ML IV (23:30)
[2023-11-18] MEDS: Oseltamivir Phosphate 75 MG Capsule PO (23:46)
[2023-11-18] MEDS: MethylPREDNISolone 125 MG/2 ML Vial IV (23:46)
--- NOTE | 2023-11-18 23:49 | HP.PCM.HOS_ITS ---
HPI - General General Date of Admission: 11/18/23 Date of Service: 11/18/23 Chief Complaint: Fatigue, malaise, hyperglycemia, hypoxia, dyspnea, diarrhea. HPI Narrative The patient is a 63 y/o M w/ PMHx: PVD, Chronic anemia/AOCD/Fe deficiency anemia, HTN, HLD, Schizophrenia/Anxiety and Depression/Sexual aggression, Hypothyroidism, Diabetes mellitus type II, Tobacco use, CKD stage III unclear subtype, Hx NSTEMI who presents to the [facility] ED on 11/18/23 with history of increased fatigue, lethargy, tachypnea with hypoxia at the skilled facility with hyperglycemia with blood sugar ranging 200-500 and despite a breathing treatment ongoing wheezing with initial SpO2 87% although did improved to 92% at their facility following aerosols but given ongoing lethargy and concerns as well as onset then of diarrhea prompted ED evaluation. Workup in the ED included T96.7, heart rate 79, BP 137/63, respiratory rate 26, initially 90% on room air shaheen ntually placed on 2 L nasal cannula noted to be 100%, CBC with WBC 6.0, hemoglobin 11.5, MCV 88.9, platelet 330 with lymphopenia, ABG with pH 7.33, O2 saturation 91%, pCO2 43, pO2 64, BMP with chloride 109, BUN/creatinine 54/2.41, creatinine clearance 37, GFR 29, glucose 165, BNP 54.1, valproic acid level 74, chest x-ray with no acute cardiopulmonary findings, rapid SARS COVID/influenza/RSV PCR with positive influenza A. In the ED patient administered Tamiflu 75 mg p.o. x 1, DuoNeb therapy, maintenance IV fluids as well as Solu-Medrol 125 mg IV x 1. [facility] Medical History Anxiety and depression Chronic anemia CKD (chronic kidney disease), stage III Congestive heart failure (CHF) COPD (chronic obstructive pulmonary disease) Diabetes mellitus, type 2 Fe deficiency anemia HLD (hyperlipidemia) HTN (hypertension) Hx of non-ST elevation myocardial infarction (NSTEMI) Hypothyroidism Obesity PVD (peripheral vascular disease) Schizophrenia Tobacco use Home Medications aripiprazole 20 mg tablet 20 mg PO DAILY schizophrenia 07/25/19 [History Last Taken 07/25/19] atorvastatin 80 mg tablet 80 mg PO DAILY arterial disease 07/25/19 [History Last Taken 07/24/19] cholecalciferol (vitamin D3) 50 mcg (2,000 unit) capsule 2,000 unit PO DAILY supplement 07/25/19 [History Last Taken 07/25/19] haloperidol 5 mg tablet 5 mg PO Q6H PRN PRN Agitation 07/25/19 [History Last Taken 07/18/19] levothyroxine 50 mcg tablet 50 mcg PO DAILY hypothyroid 07/25/19 [History Last Taken 07/25/19] lorazepam 1 mg tablet 1 mg PO Q6H PRN PRN Agitation 07/25/19 [History Last Taken 07/18/19] metformin 1,000 mg tablet 1,000 mg PO BID DM 07/25/19 [History Last Taken 07/25/19] trazodone 100 mg tablet 100 mg PO QHS insom 07/25/19 [History Last Taken 07/24/19] albuterol sulfate 0.63 mg/3 mL solution for nebulization 0.63 mg inhalation Q4H PRN PRN Wheezing 09/23/21 [History Last Taken Unknown] losartan 100 mg tablet 100 mg PO DAILY hypertensio 09/23/21 [History Last Taken Unknown] aluminum-mag hydroxide-simethicone 400 mg-400 mg-40 mg/5 mL oral susp (Mylanta Maximum Strength) 15 ml PO Q4H PRN heartburn/indigestion 09/24/21 [History Last Taken Unknown] magnesium hydroxide 400 mg/5 mL oral suspension (Milk of Magnesia) 30 ml PO DAILY PRN Constipation 09/24/21 [History Last Taken Unknown] nicotine (polacrilex) 2 mg buccal lozenge 2 mg buccal Q2H PRN smoking alternative 09/24/21 [History Last Taken Unknown] acetaminophen 325 mg tablet (Tylenol) 325 mg PO ONCE PRN fever or pain 11/10/21 [History Last Taken Unknown] ferrous sulfate 325 mg (65 mg iron) tablet 325 mg PO DAILY iron 07/21/22 [History Last Taken Unknown] haloperidol 2 mg tablet 2 mg PO TID PRN agitation 07/21/22 [History Last Taken Unknown] metoprolol tartrate 100 mg tablet 100 mg PO BID htn 30 days #0 tabs 07/23/22 [Rx Last Taken Unknown] divalproex 250 mg tablet,delayed release (Depakote) 250 mg PO BID paranoid schizophrenia 08/11/22 [History Last Taken Unknown] furosemide 40 mg tablet (Lasix) 40 mg PO DAILY chf 08/11/22 [History Last Taken Unknown] amlodipine 5 mg tablet 5 mg PO DAILY #90 tabs 08/30/22 [Rx Last Taken Unknown] divalproex 500 mg tablet,extended release 24 hr (Depakote ER) 500 mg PO BID paranoid schizopreh 07/20/23 [History Last Taken Unknown] empagliflozin 25 mg tablet (Jardiance) 25 mg PO DAILY DM 07/20/23 [History Last Taken Unknown] insulin glargine 100 unit/mL subcutaneous cartridge 35 unit subcut QPM DM 07/20/23 [History Last Taken Unknown] insulin lispro 100 unit/mL subcutaneous cartridge 17 unit subcut TID hyperglyc emia 07/20/23 [History Last Taken Unknown] lorazepam 1 mg tablet 1 mg PO BID anxiety 07/20/23 [History Last Taken Unknown] medroxyprogesterone 10 mg tablet (Provera) 10 mg PO BID sexual aggression 05/04 [History Last Taken Unknown] aspirin 81 mg tablet,delayed release (Adult Aspirin Regimen) 81 mg PO DAILY PVD 11/19/23 [History Last Taken Unknown] glucagon HCl 1 mg solution for injection (Glucagon (HCl) Emergency Kit) 1 mg IM Q20M PRN hypoglycemia 11/19/23 [History Last Taken Unknown] nicotine 10 mg inhalation cartridge (Nicotrol) 1 inh inhalation Q2H PRN nicotine cravings 11/19/23 [History Last Taken Unknown] Allergy/AdvReac Type Severity Reaction Status Date / Time No Known Allergies Allergy Verified 11/18/23 22:23 Family History Mother No family history of disorders Father No family history of disorders Other Hypertension other (Patient with no marked paternal/maternal family history including HD, DM, CA.) Surgical History No history of previous surgery No history of previous surgery Social History household members: other details: [facility]. housing: other details: [facility]. Smoking Status: Current every day smoker tobacco type: cigarettes alcohol intake: never substance use type: does not use ROS Review of Systems ROS Unobtainable: due to encephalopathy and due to mental condition Vital Signs Vital Signs Vital Signs: 11/18/23 22:23 11/18/23 22:27 11/18/23 22:31 Temperature 96.7 F L 96.7 F L Temperature Source Temporal Temporal Pulse Rate 79 79 Respiratory Rate 26 H 26 H Respiratory Effort Short of Breath Respiratory Pattern Tachypnea Blood Pressure 137/63 H 143/62 H Blood Pressure Mean 87 89 Pulse Ox 96 90 Oxygen Delivery Method Room Air 11/18/23 22:44 11/18/23 23:10 Temperature Temperature Source Pulse Rate 74 Respiratory Rate 24 H Respiratory Effort Respiratory Pattern Tachypnea Blood Pressure Blood Pressure Mean Pulse Ox Oxygen Delivery Method Room Air Weight Weight: 223 lb 1.725 oz Body Mass Index (BMI) 30.2 Physical Exam Narrative Physical Examination: General: Awakens to stimuli, alert but falling back asleep quickly, oriented to self, will mumble some answers, hard of hearing, ill appearing. Skin: Normal color, normal turgor, no icterus, no cyanosis except for significant bilateral lower extremity stasis disease and occasional staged ecch ymoses. HEENT: AT/NC, EOMI, PERRLA, dry MM, no carotid bruits or JVD noted. Lungs: Diminished, greater bases, mildly increased respiratory rate, diffuse expiratory wheezing, no respiratory distress noted, no rales or rhonchi. Heart: Mildly tachycardic with regular rhythm; no gallop, rub audible. Abdomen: Soft, obese, NTTP, ND, hyperactive BS, no appreciated HSM. Extremities: No cyanosis, no clubbing, bilateral ankle to mid mauriico edema, not markedly pitting, notable venous stasis skin changes. Neurological: Awakens to stimuli, alert but falling back asleep quickly, oriented to self, will mumble some answers, hard of hearing, ill appearing, cognitive function decreased baseline with chronic hearing deficits and underlying schizophrenia; pupils equally reactive to light and accommodation, cranial nerves grossly normal however does have notable hearing deficits, moving all 4 extremities spontaneously, no obvious focal deficits but difficult examination, strength given acute presentation severely globally decreased Psychiatric: Affect appears flat, fatigued, no acute evidence of depressive or anxiety feelings but does have underlying history as well as schizophrenia, anxiety and depression as well as chart reported sexual aggression. Results Lab / Micro Data 11/18/23 22:35 11/18/23 22:35 Labs: Laboratory Results - last 24 hr 11/18/23 22:35: WBC 6.0, RBC 4.24 L, Hgb 11.5 L, Hct 37.7 L, MCV 88.9, MCH 27.1, MCHC 30.5 L, RDW Std Deviation 52.0 H, RDW Coeff of Saman 16.0 H, Plt Count 330, MPV 11.9, Immature Gran % (Auto) 0.300, Neut % (Auto) 72.5 H, Lymph % (Auto) 10.8 L, [place] % (Auto) 15.8 H, Eos % (Auto) 0.3, Baso % (Auto) 0.3, Absolute Neuts (auto) 4.3, Absolute Lymphs (auto) 0.65 L, Nucleated RBC % 0, Sodium 142, Potassium 4.9, Chloride 109 H, Carbon Dioxide 27.0, Anion Gap 6, BUN 54 H, Creatinine 2.41 H, Estim Creat Clear Calc 37.62, Est GFR (MDRD) Af Amer 35 L, Es t GFR (MDRD) Non-Af 29 L, BUN/Creatinine Ratio 22.4 H, Glucose 165 H, Calcium 8.7, B-Natriuretic Peptide 54.1 Micro: Microbiology 11/18/23 22:45 Mucosa - Nose SARS-CoV-2, Influenza & RSV (PCR) - Final Influenzae A ABG Data ABG results: ABG 11/18/23 23:21 Specimen Type ART Sample Site R Radial pH 7.33 L Bicarbonate Actual 22.8 Total CO2 24 Base Excess -3 L O2 Saturation 91 L ABG pCO2 43.0 ABG pO2 64 L Polo Test Positive O2 Delivery Device Not entered Vent Mode Not entered Imaging Radiology Impression Chest X-Ray 11/18/23 22:45 IMPRESSION: Normal x-ray examination of the chest. Electronically Signed: Eyad Reid MD at 23:01 EST , Assessment & Plan Assessment/Plan (1) Influenza A: PLAN: Plan The patient is a 63 y/o M w/ PMHx: PVD, Chronic anemia/AOCD/Fe deficiency anemia, HTN, HLD, Schizophrenia/Anxiety and Depression/Sexual aggression, Hypothyroidism, Diabetes mellitus type II, Tobacco use, CKD stage III unclear subtype, Hx NSTEMI who presents to the [facility] ED on 11/18/23 with history of increased fatigue, lethargy, tachypnea with hypoxia at the skilled facility with hyperglycemia with blood sugar ranging 200-500 and despite a breathing treatment ongoing wheezing with initial SpO2 87% although did improved to 92% at their facility following aerosols but given ongoing lethargy and concerns as well as onset then of diarrhea prompted ED evaluation. #1. Acute Encephalopathy secondary to Acute on Chronic COPD exacerbation with associated Acute Hypoxia secondary to Acute Influenza A Viral Syndrome: Will admit to [facility], maintain on oxygen with wean as tolerated to room air, continue ATC budesonide, PRN albuterol, IV methylprednisolone, HOB, IS parameters, continue renally dosed tamiflu with 75 mg x 1 already administered in the ED. PT/OT/CM consulted for discharge planning. #2. Acute kidney injury on CKD stage III unclear subtype: Secondary to acute illness presentation as noted #1 with poor intake, GI losses. Admission BUN/Cr 54/2.41, prior baseline creatinine noted to be 1.2-1.6, most recently 07/23/2022 1.51 thus unclear more recent baseline over the last 2 years therefore it certainly could have changed. Will judiciously hydrate, hold nephrotoxic medications and repeat chemistry in AM. If no improvement would plan FeNa and renal ultrasound assessment. #3. Chronic normocytic anemia/AOCD/Fe deficiency anemia: Admission hemoglobin 11.5, MCV 88.9, baseline primarily 10-11; however, these labs are not since 2021, will repeat CBC in AM, continue iron supplementation. #4. History NSTEMI with presumed CAD, unclear exact extent: Patient with previous NSTEMI, given his advanced psychiatric disease and medical history patient guardian declined cardiac catheterization and agreed to conservative medical therapy. Once oral intake clinically appropriate we will continue patient home aspirin, atorvastatin, metoprolol regimen. Holding losartan given acute kidney injury. #5. Hypertension: Continue home regimen including metoprolol, Norvasc once oral intake appropriate, given acute kidney injury holding Lasix and losartan regimen, resume once clinically appropriate, PRN hydralazine. #6. Hyperlipidemia: Continue home statin therapy once oral intake appropriate. #7. Anxiety and depression/schizophrenia/sexual aggression: Patient with extensive past psychiatric regimen, once oral intake appropriate will continue home psychiatric regimen including Haldol, Depakote, Ativan, aripiprazole as well as Provera for sexual aggression. #8. Diabetes mellitus type II: Hold oral home regimen, continue home insulin therapy, once oral intake appropriate maintain on ADA diet with Accu-Cheks with insulin sliding scale. #9. Hypothyroidism: Once oral intake appropriate continue patient on levothyroxine regimen. #10. Tobacco Abuse: Encouraged cessation, inpatient consultation per RT, NR if desired. #11. Obesity: Weight loss and lifestyle changes encouraged. #12. DVT prophylaxis: Lovenox. #13. CODE status: Patient does have a guardian, Code status per facility full code. Charges/Coding Visit Charges Inpatient E&M: 22265 Init Hosp L3
[2023-11-18 23:54] VITALS: O2SAT 90
[2023-11-18 23:55] VITALS: BP 148/82; PULSE 77; RESP 28; TEMP 36.6; O2SAT 97
[2023-11-19] VITALS (8 sets, daily range): BP systolic 135–174; BP diastolic 78–91; PULSE 69–98; RESP 18–28; TEMP 36.2–36.9; O2SAT 96–100; BMI 28.9
[2023-11-19 00:17] LABS: Valproic Acid (Depakene) Level 74 ug/mL (50-100)
[2023-11-19 00:17] LABS: Magnesium 2.5 mg/dL (1.6-2.6)
--- NOTE | 2023-11-19 00:32 | ED.RN ---
SEPSIS SCREEN, CHECKLIST COMPLETED PER ED MD. PT'S ILLNESS IS VIRAL NO CONCERNS FOR SEPSIS AT THIS TIME.
[2023-11-19] MEDS: 0.9% Normal Saline (1000mL) 1,000 ML 100 ML IV ×2 (01:37→12:26)
--- NOTE | 2023-11-19 01:39 | ED.RN ---
[facility] called and updated on pt's admission and positive FLU A diagnosis.
[2023-11-19 06:35] LABS: Basophil# 0.01 X10^3/uL; Basophil% 0.2 % (0-1); Hemoglobin 10.4 g/dL (13.0-16.5); Lymphocyte % 8.5 % (19-41); Mean Corp Hgb Conc 30.6 g/dL (32-36); Mean Corpuscular Hgb 27.1 pg (27.0-32.0); Mean Corpuscular Volume 88.5 fL (80-94); Mean Platelet Vol. 11.3 fl (6.2-12.0); Monocyte# 0.25 X10^3/uL; Monocyte% 5.3 % (0-10); NRBC Flagged by Analyzer 0 % (0-5); Neutrophil # 4.02 X10^3/uL (2.7-7.7); Neutrophil % 85.6 % (47-70); POSITIVE DIFFERENTIAL YES; Platelet Count 291 K/mm3 (150-450); RBC Distribution Width CV 15.9 % (11.6-14.6); RBC Distribution Width SD 51.2 fl (35.1-43.9); Red Blood Count 3.84 M/mm3 (4.6-6.2); White Blood Count 4.7 K/mm3 (4.4-11.0)
[2023-11-19 06:58] LABS: Bedside Glucose 127 mg/dL (74-106)
[2023-11-19 07:02] LABS: ALB/GLOB Ratio 0.6 RATIO (0.9-2.4); AST(SGOT) 42 U/L (15-37); Alanine Aminotransfer ALT/SGPT 23 U/L (16-61); Albumin, Serum 2.2 g/dL (3.2-5.0); Alkaline Phosphatase 75 U/L (45-117); Anion Gap 6 (5-15); BUN 56 mg/dL (7-18); BUN/Creat Ratio 26.3 RATIO (10-20); Calcium,Total 8.2 mg/dL (8.5-10.1); Chloride 113 mmol/L (98-107); Creatinine, Serum 2.13 mg/dL (0.70-1.30); EST Glomerular Filtration Rate 33 mL/min (>60); Est Glom Filt Rate - Afr Amer 40 mL/min (>60); Estimated Creatinine Clearance 41.73 ml/min; Globulin 3.4 g/dL (2.2-4.2); Glucose 110 mg/dL (74-106); Potassium 4.7 mmol/L (3.5-5.1); Protein, Total 5.6 g/dL (6.4-8.2); Sodium Level 144 mmol/L (136-145)
[2023-11-19] MEDS: Oseltamivir Phosphate 30 MG Capsule PO ×2 (09:10→22:02)
[2023-11-19] MEDS: Enoxaparin 40 MG/0.4 ML Syringe SC (09:11)
[2023-11-19] MEDS: Menthol/Lanolin/Calamine/Znox 113 GM Tube 1 APPLIC TOPICAL (09:11)
[2023-11-19 09:28] LABS: Hemoglobin A1c 7.9 % (3.8-5.6)
[2023-11-19 12:00] LABS: Bedside Glucose 201 mg/dL (74-106)
--- NOTE | 2023-11-19 12:04 | CASEMGMT ---
Addendum entered by Marian Lomas 11/19/23 12:21: Social work Updates sent via [employer]. [facility] faxed over form showing pt's brother Umang is his guardian. EV Portillo Original Note: Social Work Pt is here from [facility], As per the face sheet from [facility], pt's guardian is pt's brother Umang Chung. SW called [facility], confirmed pt can return when ready, is shelter. SW asked [facility] to fax over the guardianship form. SW called pt's brother and guardian Umang, confirmed the plan is for pt to return to [facility] at discharge. As per physician, pt is not going to discharge on the weekend, SW let pt's brother know. SW will send updates through [facility]. EV Portillo
[2023-11-19] MEDS: Insulin Lispro 100 UNIT/ML INSULN.PEN SC ×3 (12:26→22:03)
--- NOTE | 2023-11-19 13:03 | PN.HOSP_ITS ---
Reason for Visit Reason for Visit: Diagnoses Influenza due to other identified influenza virus with other respiratory manife stations (11/18/23) Subjective Subjective Patient presented to the ED yesterday evening from [facility] for increased drowsiness, worsening shortness of breath and hyperglycemia. Found to be positive for influenza infection. Started on steroids and breathing treatments and given IV fluids for dehydration with good improvement. Patient seen at bedside this morning. Patient was laying comfortably in bed, in no acute distress. He was breathing comfortably on 2 L nasal cannula with good oxygen saturations. Patient has known history of schizophrenia and appeared to have some degree of cognitive delay during our conversation, but he otherwise was answering questions appropriately. He denied any acute pain or discomfort this morning. No other acute concerns this time. Objective Data Objective Data Vital Signs: Vital Signs Temp Pulse Resp BP Pulse Ox O2 Del Method O2 Flow Rate 98.5 F 87 20 H 135/89 H 96 Nasal Cannula 2 11/19/23 09:09 11/19/23 09:09 11/19/23 09:09 11/19/23 09:09 11/19/23 09:09 11/19/23 09:09 11/19/23 09:09 Oxygen Flow Rate (L/min) 2 Oxygen Delivery Method Nasal Cannula Weight: 96.9 kg Body Mass Index (BMI) 28.9 Intake & Output: Intake and Output for Last 24 Hours 11/17/23 11/18/23 11/19/23 23:59 23:59 23:59 Intake Total 2732.5 / 2732.5 Balance 2732.5 / 2732.5 Lab / Micro Data 11/19/23 06:10 11/19/23 06:10 Labs: Laboratory Results - last 24 hr 11/18/23 22:35: WBC 6.0, RBC 4.24 L, Hgb 11.5 L, Hct 37.7 L, MCV 88.9, MCH 27.1, MCHC 30.5 L, RDW Std Deviation 52.0 H, RDW Coeff of Saman 16.0 H, Plt Count 330, MPV 11.9, Immature Gran % (Auto) 0.300, Neut % (Auto) 72.5 H, Lymph % (Auto) 10. 8 L, [place] % (Auto) 15.8 H, Eos % (Auto) 0.3, Baso % (Auto) 0.3, Absolute Neuts (auto) 4.3, Absolute Lymphs (auto) 0.65 L, Nucleated RBC % 0, Sodium 142, Potassium 4.9, Chloride 109 H, Carbon Dioxide 27.0, Anion Gap 6, BUN 54 H, Creatinine 2.41 H, Estim Creat Clear Calc 37.62, Est GFR (MDRD) Af Amer 35 L, Est GFR (MDRD) Non-Af 29 L, BUN/Creatinine Ratio 22.4 H, Glucose 165 H, Calcium 8.7, B-Natriuretic Peptide 54.1 11/18/23 22:47: Phosphorus 5.0 H, Magnesium 2.5 11/18/23 22:55: Valproic Acid 74 11/19/23 06:10: WBC 4.7, RBC 3.84 L, Hgb 10.4 L, Hct 34.0 L, MCV 88.5, MCH 27.1, MCHC 30.6 L, RDW Std Deviation 51.2 H, RDW Coeff of Saman 15.9 H, Plt Count 291, MPV 11.3, Immature Gran % (Auto) 0.400, Neut % (Auto) 85.6 H, Lymph % (Auto) 8.5 L, Creek % (Auto) 5.3, Eos % (Auto) 0.0, Baso % (Auto) 0.2, Absolute Neuts (auto) 4.0, Absolute Lymphs (auto) 0.40 L, Nucleated RBC % 0, Sodium 144, Potassium 4.7, Chloride 113 H, Carbon Dioxide 25.0, Anion Gap 6, BUN 56 H, Creatinine 2.13 H, Estim Creat Clear Calc 41.73, Est GFR (MDRD) Af Amer 40 L, Est GFR (MDRD) Non-Af 33 L, BUN/Creatinine Ratio 26.3 H, Glucose 110 H, Hemoglobin A1c 7.9 H, Calcium 8.2 L, Total Bilirubin 0.20, AST 42 H, ALT 23, Alkaline Phosphatase 75, Total Protein 5.6 L, Albumin 2.2 L, Globulin 3.4, Albumin/Globulin Ratio 0.6 L 11/19/23 06:35: POC Glucose 127 H 11/19/23 11:41: POC Glucose 201 H Micro: Microbiology 11/18/23 22:45 Mucosa - Nose SARS-CoV-2, Influenza & RSV (PCR) - Final Influenzae A ABG Data ABG results: ABG 11/18/23 23:21 Specimen Type ART Sample Site R Radial pH 7.33 L Bicarbonate Actual 22.8 Total CO2 24 Base Excess -3 L O2 Saturation 91 L ABG pCO2 43.0 ABG pO2 64 L Polo Test Positive O2 Delivery Device Not entered Vent Mode Not entered Radiography Diagnostic Testing: Radiology Impression Chest X-Ray 11/18/23 22:45 IMPRESSION: Normal x-ray examination of the chest. Electronically Signed: Eyad Reid MD at 23:01 EST , Rhythm Strip Rhythm Strip: Sinus Rhythm Rate: 74 Ectopy: None Physical Exam Const alert, no apparent distress and average body habitus Constitutional Narrative: Elderly male, overweight, cognitive delay, otherwise laying comfortably in bed, answering questions appropriately, in no acute distress. General Appearance: cooperative and comfortable HEENT normocephalic, head/scalp atraumatic, hearing grossly normal bilaterally and nasal mucous membranes and turbinates normal Eyes PERRL, EOMs intact bilaterally and conjunctivae normal Neck full ROM Chest inspection of chest normal Resp normal respiratory effort and no use of accessory muscles Resp Narrative: Breathing comfortably on 2 L nasal cannula with good saturations. Mildly decreased breath sounds bilaterally throughout, no wheezing or crackles noted. Cardio regular rate, regular rhythm, no murmurs and peripheral pulses 2+ throughout GI normal to inspection, nondistended, normoactive bowel sounds, soft to palpation, non-tender and non-distended Back/Spine normal ROM Extremity normal to inspection and no pedal edema Skin no rashes or lesions noted Neuro moves all extremities and no focal motor deficits Psych mental status grossly normal Assessment & Plan Assessment/Plan (1) Asthma exacerbation in COPD: (2) Influenza A: (3) Renal insufficiency: PLAN: Plan Patient is a 63-year-old male who presented [facility] ED on 11/18/2023 from his extended care facility for multiple concerns including altered mentation and worsening shortness of breath. 1. Acute hypoxia secondary to COPD exacerbation in setting of influenza A infection ? Required 2 L nasal cannula on admit for oxygen saturation of 87% on room air. Chest x-ray unremarkable. Influenza A positive in ED. Otherwise hemodynamically stable and no leukocytosis, did not meet sepsis criteria on admit. ? Continue treatment with Tamiflu and IV steroids. Continue scheduled DuoNebs for now. Wean supplemental oxygen as able. Incentive spirometry at the bedside. 2. Acute metabolic encephalopathy, resolved ? Presumed secondary to infection with hypoxia and dehydration on admission. R esolved on 11/18. 3. JULIETTE on CKD stage III, improving ? Creatinine 2.41 on admit, baseline creatinine 1.6-1.8. Presumed prerenal JULIETTE in setting of dehydration. Repeat creatinine 2.13 on hospital day 2 after IV fluid resuscitation. Adequate urine output. ? Continue to monitor daily BMP and urine output. 4. Type 2 diabetes mellitus ? Home regimen of insulin glargine 35 units at night, lispro 17 units with meals, metformin 1000 mg twice daily, Jardiance 25 mg daily. Blood glucose reported to be greater than 500 at the facility, was 165 on admit here. Will start Lantus 30 units at night, Humalog sliding scale insulin with meals for now, adjust as needed. Chronic medical conditions: ? CAD, hypertension, hyperlipidemia: Continue home metoprolol and amlodipine. Holding home Lasix and lisinopril for JULIETTE as noted above, restart when able. Continue home statin and aspirin. ? Anxiety and depression, schizophrenia, sexual aggression: Continue home aripiprazole, Provera, Depakote, Ativan and as needed Haldol. ? Hypothyroidism: Continue home Synthroid. ? Tobacco abuse: Encouraged cessation. Nicotine replacement therapy available as needed. DVT prophylaxis: Lovenox CODE STATUS: Full code, verified Expected disposition: Back to [facility], 1 to 2 days Total clinical time spent by myself addressing the patient's medical issues, reviewing all the data, and collaborating with patient's care team: 35 minutes. Charges/Coding Visit Charges Inpatient E&M: 33824 Subs Hosp L2
[2023-11-19] MEDS: Acetaminophen 325 MG Tablet 650 MG PO (15:07)
[2023-11-19] MEDS: guaiFENesin 10 ML UDC (200MG/10ML) 20 ML PO (15:08)
[2023-11-19 17:01] LABS: Bedside Glucose 264 mg/dL (74-106)
[2023-11-19] MEDS: traZODone 100 MG Tablet PO (22:02)
[2023-11-19] MEDS: Divalproex (ER) 500 MG Tablet PO (22:02)
[2023-11-19] MEDS: MEDROXYPROGESTERONE ACETATE 10 MG TABLET PO (22:02)
[2023-11-19] MEDS: LORazepam 1 MG Tablet PO (22:02)
[2023-11-19] MEDS: MELATONIN 3 MG TABLET PO (22:02)
[2023-11-19] MEDS: Haloperidol 5 MG Tablet PO (22:05)
[2023-11-19] MEDS: Insulin Glargine-YFGN 100 UNIT/ML Pen 30 UNIT SC (22:11)
[2023-11-19 22:35] LABS: Bedside Glucose 310 mg/dL (74-106)
[2023-11-20] MEDS: Haloperidol 5 MG Tablet PO (05:41)
[2023-11-20] MEDS: Levothyroxine 50 MCG Tablet PO (05:41)
[2023-11-20 05:49] VITALS: BP 138/77; PULSE 98; RESP 18; TEMP 36.7; O2SAT 98
[2023-11-20 06:00] VITALS: BMI 28.6
[2023-11-20 06:49] LABS: Hematocrit 33.1 % (40-54); Hemoglobin 10.5 g/dL (13.0-16.5); Mean Corp Hgb Conc 31.7 g/dL (32-36); Mean Corpuscular Hgb 27.9 pg (27.0-32.0); Mean Corpuscular Volume 87.8 fL (80-94); Mean Platelet Vol. 11.5 fl (6.2-12.0); Platelet Count 311 K/mm3 (150-450); RBC Distribution Width CV 15.4 % (11.6-14.6); RBC Distribution Width SD 49.6 fl (35.1-43.9); Red Blood Count 3.77 M/mm3 (4.6-6.2); White Blood Count 6.1 K/mm3 (4.4-11.0)
[2023-11-20 07:14] LABS: Anion Gap 6 (5-15); BUN 58 mg/dL (7-18); BUN/Creat Ratio 29.4 RATIO (10-20); Calcium,Total 8.4 mg/dL (8.5-10.1); Chloride 107 mmol/L (98-107); Creatinine, Serum 1.97 mg/dL (0.70-1.30); EST Glomerular Filtration Rate 36 mL/min (>60); Est Glom Filt Rate - Afr Amer 44 mL/min (>60); Glucose 103 mg/dL (74-106); Potassium 4.3 mmol/L (3.5-5.1); Sodium Level 138 mmol/L (136-145)
[2023-11-20 07:57] VITALS: O2SAT 93
[2023-11-20 09:00] VITALS: BP 144/74; PULSE 98; RESP 18; TEMP 36.8; O2SAT 98
[2023-11-20] MEDS: Aspirin E.C. 81 MG Tablet PO (09:17)
[2023-11-20] MEDS: Enoxaparin 40 MG/0.4 ML Syringe SC (09:17)
[2023-11-20] MEDS: ARIPiprazole 10 MG Tablet 20 MG PO (09:18)
[2023-11-20] MEDS: Furosemide 40 MG Tablet PO (09:18)
[2023-11-20] MEDS: Losartan Potassium 100 MG Tablet PO (09:18)
[2023-11-20] MEDS: Atorvastatin Calcium 80 MG Tablet PO (09:18)
[2023-11-20] MEDS: LORazepam 1 MG Tablet PO (09:18)
[2023-11-20] MEDS: MEDROXYPROGESTERONE ACETATE 10 MG TABLET PO (09:18)
[2023-11-20] MEDS: amLODIPine 5 MG Tablet PO (09:18)
[2023-11-20] MEDS: Divalproex (ER) 500 MG Tablet PO (09:19)
[2023-11-20] MEDS: Oseltamivir Phosphate 30 MG Capsule PO (09:19)
--- NOTE | 2023-11-20 12:03 | PCM.DC.SUM ---
Providers Date of Admission: 11/18/23 Date of Discharge: 11/20/23 Primary Care Physician: Dr. Bernard Hankins MD Reason For Visit: HYPOXIA, INFLUENZA, JULIETTE Diagnosis Discharge Diagnosis (1) Asthma exacerbation in COPD: Status: Chronic Code(s): J44.1 - Chronic obstructive pulmonary disease with (acute) exacerbation; J45.901 - Unspecified asthma with (acute) exacerbation (2) Influenza A: Status: Acute Code(s): J10.1 - Influenza due to other identified influenza virus with other respiratory manifestations (3) Renal insufficiency: Status: Acute Code(s): N28.9 - Disorder of kidney and ureter, unspecified Medications at Discharge Home Medications aripiprazole 20 mg tablet 20 mg PO DAILY schizophrenia 07/25/19 atorvastatin 80 mg tablet 80 mg PO DAILY arterial disease 07/25/19 cholecalciferol (vitamin D3) 50 mcg (2,000 unit) capsule 2,000 unit PO DAILY supplement 07/25/19 haloperidol 5 mg tablet 5 mg PO Q6H PRN PRN Agitation 07/25/19 levothyroxine 50 mcg tablet 50 mcg PO DAILY hypothyroid 07/25/19 lorazepam 1 mg tablet 1 mg PO Q6H PRN PRN Agitation 07/25/19 metformin 1,000 mg tablet 1,000 mg PO BID DM 07/25/19 trazodone 100 mg tablet 100 mg PO QHS insom 07/25/19 albuterol sulfate 0.63 mg/3 mL solution for nebulization 0.63 mg inhalation Q4H PRN PRN Wheezing 09/23/21 losartan 100 mg tablet 100 mg PO DAILY hypertensio 09/23/21 aluminum-mag hydroxide-simethicone 400 mg-400 mg-40 mg/5 mL oral susp (Mylanta Maximum Strength) 15 ml PO Q4H PRN heartburn/indigestion 09/24/21 magnesium hydroxide 400 mg/5 mL oral suspension (Milk of Magnesia) 30 ml PO DAILY PRN Constipation 09/24/21 nicotine (polacrilex) 2 mg buccal lozenge 2 mg buccal Q2H PRN smoking alternative 09/24/21 acetaminophen 325 mg tablet (Tylenol) 325 mg PO ONCE PRN fever or pain 11/10/21 ferrous sulfate 325 mg (65 mg iron) tablet 325 mg PO DAILY iron 07/21/22 haloperidol 2 mg tablet 2 mg PO TID PRN agitation 07/21/22 metoprolol tartrate 100 mg tablet 100 mg PO BID htn 30 days #0 tabs 07/23/22 divalproex 250 mg tablet,delayed release (Depakote) 250 mg PO BID paranoid schizophrenia 08/11/22 furosemide 40 mg tablet (Lasix) 40 mg PO DAILY chf 08/11/22 amlodipine 5 mg tablet 5 mg PO DAILY #90 tabs 08/30/22 divalproex 500 mg tablet,extended release 24 hr (Depakote ER) 500 mg PO BID paranoid schizopreh 07/20/23 empagliflozin 25 mg tablet (Jardiance) 25 mg PO DAILY DM 07/20/23 insulin glargine 100 unit/mL subcutaneous cartridge 35 unit subcut QPM DM 07/20/23 insulin lispro 100 unit/mL subcutaneous cartridge 17 unit subcut TID hyperglycemia 07/20/23 lorazepam 1 mg tablet 1 mg PO BID anxiety 07/20/23 medroxyprogesterone 10 mg tablet (Provera) 10 mg PO BID sexual aggression 07/20/23 aspirin 81 mg tablet,delayed release (Adult Aspirin Regimen) 81 mg PO DAILY PVD 11/19/23 glucagon HCl 1 mg solution for injection (Glucagon (HCl) Emergency Kit) 1 mg IM Q20M PRN hypoglycemia 11/19/23 nicotine 10 mg inhalation cartridge (Nicotrol) 1 inh inhalation Q2H PRN nicotine cravings 11/19/23 oseltamivir 30 mg capsule 30 mg PO BID 3 days #6 caps 11/20/23 prednisone 20 mg tablet 40 mg (2 x 20 mg) PO DAILY 3 days #6 tabs 11/20/23 Hospital Course Operations None Procedures - (Chest x-ray) Summary of Care Provided Minutes Spent on Discharge: 35 Hospital Course: Patient is a 63-year-old male who presented [facility] ED on 11/18/2023 from his extended care facility for multiple concerns including altered mentation and worsening shortness of breath. Short hospital course as noted below. Patient discharged back to [facility] in stable condition on 11/19. . Acute hypoxia secondary to COPD exacerbation in setting of influenza A infection, resolved ? Required 2 L nasal cannula on admit for oxygen saturation of 87% on room air. Chest x-ray unremarkable. Influenza A positive in ED. Otherwise hemodynamically stable and no leukocytosis, did not meet sepsis criteria on admit. ? Weaned to room air on hospital day 2 without issue. ? Treated with IV steroids, scheduled DuoNebs and Tamiflu while inpatient. Will prescribe prednisone 40 mg daily and Tamiflu on discharge to complete 5-day courses of both. Continue albuterol inhaler as needed on discharge. 2. Acute metabolic encephalopathy, resolved ? Presumed secondary to infection with hypoxia and dehydration on admission. Resolved on 11/18. 3. JULIETTE on CKD stage III, improving ? Creatinine 2.41 on admit, baseline creatinine 1.6-1.8. Presumed prerenal JULIETTE in setting of dehydration. Repeat creatinine 2.13 on hospital day 2 after IV fluid resuscitation. Adequate urine output. ? Creatinine 1.97 on day of discharge. Continued to have adequate urine output. Would recommend repeat BMP in 5 to 7 days to ensure resolution of JULIETTE. 4. Type 2 diabetes mellitus ? Home regimen of insulin glargine 35 units at night, lispro 17 units with meals, metformin 1000 mg twice daily, Jardiance 25 mg daily. Blood glucose reported to be greater than 500 at the facility, was 165 on admit here. Treated with Lantus 30 units at night, Humalog sliding-scale insulin with meals while inpatient. Okay to resume home regimen on discharge. Chronic medical conditions: ? CAD, hypertension, hyperlipidemia: Continue home metoprolol and amlodipine. Home Lasix and lisinopril held during hospitalization, okay to resume on discharge. Continue home statin and aspirin. ? Anxiety and depression, schizophrenia, sexual aggression: Continue home aripiprazole, Provera, Depakote, Ativan and as needed Haldol. ? Hypothyroidism: Continue home Synthroid. ? Tobacco abuse: Encouraged cessation. Nicotine replacement therapy available as needed. Total clinical time spent by myself addressing the patient's medical issues, reviewing all the data, and collaborating with patient's care team: 35 minutes. Physical Exam Const alert, no apparent distress and average body habitus Constitutional Narrative: Elderly male, overweight, cognitive delay, otherwise laying comfortably in bed, answering questions appropriately, in no acute distress. General Appearance: cooperative and comfortable HEENT normocephalic, head/scalp atraumatic, hearing grossly normal bilaterally and nasal mucous membranes and turbinates normal Eyes PERRL, EOMs intact bilaterally and conjunctivae normal Neck full ROM Chest inspection of chest normal Resp normal respiratory effort and no use of accessory muscles Resp Narrative: Breathing comfortably on room air. Mildly decreased breath sounds bilaterally throughout, no wheezing or crackles noted. Cardio regular rate, regular rhythm, no murmurs and peripheral pulses 2+ throughout GI normal to inspection, nondistended, normoactive bowel sounds, soft to palpation, non-tender and non-distended Back/Spine normal ROM Extremity normal to inspection and no pedal edema Skin no rashes or lesions noted Neuro moves all extremities and no focal motor deficits Psych mental status grossly normal Weight / BMI Weight Weight: 95.9 kg Body Mass Index (BMI) 28.6 ABG / Lab / Microbiology Data 11/20/23 06:14 11/20/23 06:14 Laboratory: Laboratory Results - last 24 hr 11/19/23 11:41: POC Glucose 201 H 11/19/23 16:42: POC Glucose 264 H 11/19/23 22:01: POC Glucose 310 H 11/20/23 06:14: WBC 6.1, RBC 3.77 L, Hgb 10.5 L, Hct 33.1 L, MCV 87.8, MCH 27.9, MCHC 31.7 L, RDW Std Deviation 49.6 H, RDW Coeff of Saman 15.4 H, Plt Count 311, MPV 11.5, Sodium 138, Potassium 4.3, Chloride 107, Carbon Dioxide 25.0, Anion Gap 6, BUN 58 H, Creatinine 1.97 H, Estim Creat Clear Calc 44.90, Est GFR (MDRD) Af Amer 44 L, Est GFR (MDRD) Non-Af 36 L, BUN/Creatinine Ratio 29.4 H, Glucose 103, Calcium 8.4 L Microbiology: Microbiology 11/18/23 22:45 Mucosa - Nose SARS-CoV-2, Influenza & RSV (PCR) - Final Influenzae A Meaningful Use Info Meaningful Use Diagnoses (Choose all that apply): None applicable Discharge Plan Admission Admit Date/Time: 11/18/23 23:49 Primary Reason for Your Visit: Shortness of breath and drowsiness Attending Provider: Fred Vargas Primary Care Provider: Bernard Hankins Consulting Providers: Angelina Campbell Discharge Orders/Prescriptions Prescriptions: New oseltamivir 30 mg Capsule 30 mg PO BID 3 Days Qty: 6 0RF prednisone 20 mg tablet 40 mg PO DAILY 3 Days Qty: 6 0RF Continued acetaminophen [Tylenol] 325 mg tablet 325 mg PO ONCE PRN (Reason: fever or pain) Jardiance 25 mg tablet 25 mg PO DAILY lorazepam 1 mg tablet 1 mg PO BID medroxyprogesterone [Provera] 10 mg tablet 10 mg PO BID furosemide [Lasix] 40 mg tablet 40 mg PO DAILY divalproex [Depakote] 250 mg tablet,delayed release (DR/EC) 250 mg PO BID aripiprazole 20 MG tablet 20 mg PO DAILY atorvastatin 80 MG tablet 80 mg PO DAILY lorazepam 1 MG tablet 1 mg PO Q6H PRN PRN (Reason: Agitation) haloperidol 5 MG tablet 5 mg PO Q6H PRN PRN (Reason: Agitation) trazodone 100 MG tablet 100 mg PO QHS levothyroxine 50 MCG tablet 50 mcg PO DAILY metformin 1,000 MG tablet 1,000 mg PO BID cholecalciferol (vitamin D3) 2,000 UNIT capsule 2,000 unit PO DAILY insulin lispro 100 unit/mL cartridge 17 unit subcut TID albuterol sulfate 0.63 mg/3 mL solution for nebulization 0.63 mg inhalation Q4H PRN PRN (Reason: Wheezing) losartan 100 mg tablet 100 mg PO DAILY magnesium hydroxide [Milk of Magnesia] 400 mg/5 mL Suspension 30 ml PO DAILY PRN (Reason: Constipation) alum-mag hydroxide-simeth [Mylanta Maximum Strength] 400-400-40 mg/5 mL Suspension 15 ml PO Q4H PRN (Reason: heartburn/indigestion) nicotine (polacrilex) 2 mg Lozenge 2 mg BUCCAL Q2H PRN (Reason: smoking alternative) ferrous sulfate 325 mg (65 mg iron) Tablet 325 mg PO DAILY haloperidol 2 mg Tablet 2 mg PO TID PRN (Reason: agitation) metoprolol tartrate 100 mg Tablet 100 mg PO BID 30 Days Qty: 0 0RF divalproex [Depakote ER] 500 mg tablet extended release 24 hr 500 mg PO BID insulin glargine 100 unit/mL cartridge 35 unit SUBCUT QPM aspirin [Adult Aspirin Regimen] 81 mg tablet,delayed release (DR/EC) 81 mg PO DAILY glucagon HCl [Glucagon (HCl) Emergency Kit] 1 mg recon soln 1 mg IM Q20M PRN (Reason: hypoglycemia) Rx Instructions: until target blood sugar attained Nicotrol 10 mg cartridge 1 inh inhalation Q2H PRN (Reason: nicotine cravings) amlodipine 5 mg tablet 5 mg PO DAILY Qty: 90 0RF Referrals / Follow Up: Bernard Hankins MD [Primary Care Provider] - Disposition Disposition (needs filled in before D/C Order can be placed): Detention Acute Care Charges/Coding Visit Charges Inpatient E&M: 31117 Disch Hosp >30min
[2023-11-20] MEDS: Insulin Lispro 100 UNIT/ML INSULN.PEN SC (12:44)
[2023-11-20] MEDS: Ferrous Sulfate 325 MG Tablet PO (12:45)
[2023-11-20 12:56] LABS: Bedside Glucose 447 mg/dL (74-106)
--- NOTE | 2023-11-20 14:18 | PCM.TXEXTCAR ---
Diet Diet Order/Speech Therapy: 11/19/23 00:59 Diet: Consistent Carb - Calorie Controlled Food consistency:: Regular Liquid Consistency:: Regular/Thin Is pt able to select menu?: No How many daily calories?: 1800 calorie Routine Orders/Code Status Routine Lab Work: BMP (5 to 7 days) Code Status: Full Code Therapies Weight Bearing: Full weight bearing Problem/Diagnosis (1) Asthma exacerbation in COPD: Status: Chronic Code(s): J44.1 - Chronic obstructive pulmonary disease with (acute) exacerbation; J45.901 - Unspecified asthma with (acute) exacerbation (2) Influenza A: Status: Acute Code(s): J10.1 - Influenza due to other identified influenza virus with other respiratory manifestations (3) Renal insufficiency: Status: Acute Code(s): N28.9 - Disorder of kidney and ureter, unspecified Plan Patient is a 63-year-old male who presented [facility] ED on 11/18/2023 from his extended care facility for multiple concerns including altered mentation and worsening shortness of breath. Short hospital course as noted below. Patient discharged back to [facility] in stable condition on 11/19. 1. Acute hypoxia secondary to COPD exacerbation in setting of influenza A infection, resolved ? Required 2 L nasal cannula on admit for oxygen saturation of 87% on room air. Chest x-ray unremarkable. Influenza A positive in ED. Otherwise hemodynamically stable and no leukocytosis, did not meet sepsis criteria on admit. ? Weaned to room air on hospital day 2 without issue. ? Treated with IV steroids, scheduled DuoNebs and Tamiflu while inpatient. Will prescribe prednisone 40 mg daily and Tamiflu on discharge to complete 5-day courses of both. Continue albuterol inhaler as needed on discharge. 2. Acute metabolic encephalopathy, resolved ? Presumed secondary to infection with hypoxia and dehydration on admission. Resolved on 11/18. 3. JULIETTE on CKD stage III, improving ? Creatinine 2.41 on admit, baseline creatinine 1.6-1.8. Presumed prerenal JULIETTE in setting of dehydration. Repeat creatinine 2.13 on hospital day 2 after IV fluid resuscitation. Adequate urine output. ? Creatinine 1.97 on day of discharge. Continued to have adequate urine output. Would recommend repeat BMP in 5 to 7 days to ensure resolution of JULIETTE. 4. Type 2 diabetes mellitus ? Home regimen of insulin glargine 35 units at night, lispro 17 units with meals, metformin 1000 mg twice daily, Jardiance 25 mg daily. Blood glucose reported to be greater than 500 at the facility, was 165 on admit here. Treated with Lantus 30 units at night, Humalog sliding-scale insulin with meals while inpatient. Okay to resume home regimen on discharge. Chronic medical conditions: ? CAD, hypertension, hyperlipidemia: Continue home metoprolol and amlodipine. Home Lasix and lisinopril held during hospitalization, okay to resume on discharge. Continue home statin and aspirin. ? Anxiety and depression, schizophrenia, sexual aggression: Continue home aripiprazole, Provera, Depakote, Ativan and as needed Haldol. ? Hypothyroidism: Continue home Synthroid. ? Tobacco abuse: Encouraged cessation. Nicotine replacement therapy available as needed. Total clinical time spent by myself addressing the patient's medical issues, reviewing all the data, and collaborating with patient's care team: 35 minutes. Allergies/Procedures Done in Hospital Allergies No Known Allergies Allergy (Verified 11/18/23 22:23) Procedures: - (Chest x-ray) Type of Care/Length of Stay Estimated LOS: More Than 30 Days Type of Care Needed: LTAC Rehab Potential: Fair Prognosis: Fair Additional Orders/Day of Discharge H&P will serve as current which was dated: 11/18/23 Day of Discharge: 11/20/23 Discharge Plan Admission Admit Date/Time: 11/18/23 23:49 Primary Reason for Your Visit: Shortness of breath and drowsiness Attending Provider: Fred Vargas Primary Care Provider: Bernard Hankins Consulting Providers: Angelina Campbell Discharge Orders/Prescriptions Prescriptions: New oseltamivir 30 mg Capsule 30 mg PO BID 3 Days Qty: 6 0RF prednisone 20 mg tablet 40 mg PO DAILY 3 Days Qty: 6 0RF Continued acetaminophen [Tylenol] 325 mg tablet 325 mg PO ONCE PRN (Reason: fever or pain) Jardiance 25 mg tablet 25 mg PO DAILY lorazepam 1 mg tablet 1 mg PO BID medroxyprogesterone [Provera] 10 mg tablet 10 mg PO BID furosemide [Lasix] 40 mg tablet 40 mg PO DAILY divalproex [Depakote] 250 mg tablet,delayed release (DR/EC) 250 mg PO BID aripiprazole 20 MG tablet 20 mg PO DAILY atorvastatin 80 MG tablet 80 mg PO DAILY lorazepam 1 MG tablet 1 mg PO Q6H PRN PRN (Reason: Agitation) haloperidol 5 MG tablet 5 mg PO Q6H PRN PRN (Reason: Agitation) trazodone 100 MG tablet 100 mg PO QHS levothyroxine 50 MCG tablet 50 mcg PO DAILY metformin 1,000 MG tablet 1,000 mg PO BID cholecalciferol (vitamin D3) 2,000 UNIT capsule 2,000 unit PO DAILY insulin lispro 100 unit/mL cartridge 17 unit subcut TID albuterol sulfate 0.63 mg/3 mL solution for nebulization 0.63 mg inhalation Q4H PRN PRN (Reason: Wheezing) losartan 100 mg tablet 100 mg PO DAILY magnesium hydroxide [Milk of Magnesia] 400 mg/5 mL Suspension 30 ml PO DAILY PRN (Reason: Constipation) alum-mag hydroxide-simeth [Mylanta Maximum Strength] 400-400-40 mg/5 mL Suspension 15 ml PO Q4H PRN (Reason: heartburn/indigestion) nicotine (polacrilex) 2 mg Lozenge 2 mg BUCCAL Q2H PRN (Reason: smoking alternative) ferrous sulfate 325 mg (65 mg iron) Tablet 325 mg PO DAILY haloperidol 2 mg Tablet 2 mg PO TID PRN (Reason: agitation) metoprolol tartrate 100 mg Tablet 100 mg PO BID 30 Days Qty: 0 0RF divalproex [Depakote ER] 500 mg tablet extended release 24 hr 500 mg PO BID insulin glargine 100 unit/mL cartridge 35 unit SUBCUT QPM aspirin [Adult Aspirin Regimen] 81 mg tablet,delayed release (DR/EC) 81 mg PO DAILY glucagon HCl [Glucagon (HCl) Emergency Kit] 1 mg recon soln 1 mg IM Q20M PRN (Reason: hypoglycemia) Rx Instructions: until target blood sugar attained Nicotrol 10 mg cartridge 1 inh inhalation Q2H PRN (Reason: nicotine cravings) amlodipine 5 mg tablet 5 mg PO DAILY Qty: 90 0RF Referrals / Follow Up: Bernard Hankins MD [Primary Care Provider] - Disposition Disposition (needs filled in before D/C Order can be placed): Intermediate Acute Care Charges/Coding Visit Charges Inpatient E&M: 41221 Disch Hosp >30min
[2023-11-20 15:06] VITALS: BP 150/80; PULSE 105; RESP 18; TEMP 36.4; O2SAT 98
== END 2023-11-20 16:28 | DRG 865 ==
LOC: ED 23:34 → MS3 11-19 00:11
PROVIDERS: Admitting Provider Family Medicine; Emergency Provider Emergency Medicine; PCP Family Medicine; Referring Provider Hospitalist; Visit Provider Hospitalist
DX: J11.81 Influenza due to unidentified influenza virus with encephalopathy (principal); G93.41 Metabolic encephalopathy; I13.0 Hypertensive heart and chronic kidney disease with heart failure and stage 1 through stage 4 chronic kidney disease, or unspecified chronic kidney disease; J44.0 Chronic obstructive pulmonary disease with (acute) lower respiratory infection; N17.9 Acute kidney failure, unspecified; I50.32 Chronic diastolic (congestive) heart failure; J44.1 Chronic obstructive pulmonary disease with (acute) exacerbation; D63.1 Anemia in chronic kidney disease; E86.0 Dehydration; N18.30 Chronic kidney disease, stage 3 unspecified; F20.9 Schizophrenia, unspecified; F03.90 Unspecified dementia, unspecified severity, without behavioral disturbance, psychotic disturbance, mood disturbance, and anxiety; E11.65 Type 2 diabetes mellitus with hyperglycemia; E11.22 Type 2 diabetes mellitus with diabetic chronic kidney disease; E11.51 Type 2 diabetes mellitus with diabetic peripheral angiopathy without gangrene; Z79.4 Long term (current) use of insulin; E03.9 Hypothyroidism, unspecified; F32.A Depression, unspecified; D50.9 Iron deficiency anemia, unspecified; I25.10 Atherosclerotic heart disease of native coronary artery without angina pectoris; F41.9 Anxiety disorder, unspecified; E78.5 Hyperlipidemia, unspecified; F17.210 Nicotine dependence, cigarettes, uncomplicated; I25.2 Old myocardial infarction; E66.9 Obesity, unspecified; Z68.30 Body mass index [BMI] 30.0-30.9, adult; Z72.51 High risk heterosexual behavior; Z79.82 Long term (current) use of aspirin; Z79.84 Long term (current) use of oral hypoglycemic drugs; Z79.899 Other long term (current) drug therapy
CPT/HCPCS: 36415; 36600; 71045; 80048; 80053; 80164; 82803; 82962; 83036; 83735; 83880; 84100; 85025; 85027; 87631; 93005; 94640; 94668; 99284; J7030; A4216

== ENCOUNTER 2023-11-25 10:09 | Inpatient (IN) | payer MEDICARE, MEDICAID, SELFPAY ==
[2023-11-25] VITALS (20 sets, daily range): BP systolic 100–164; BP diastolic 56–94; PULSE 77–113; RESP 22–34; TEMP 36.6–37.4; O2SAT 90–98; BMI 34.4; BMI 33.3
--- NOTE | 2023-11-25 10:47 | RAD_ITS ---
STUDY: X-RAY CHEST REASON FOR EXAM: Male, 63 years old. Cough and shortness of breath. TECHNIQUE: Single AP portable view of the chest. COMPARISON: Comparison is made with prior study November 18, 2023. FINDINGS: EKG electrodes are seen. Patchy infiltrate is seen in the left parahilar region as well as in the left lower lobe. Follow-up recommended. There is no demonstrated pleural abnormality. Normal size heart. Normal mediastinum and myesha. Normal visualized pulmonary arteries. Normal visualized aortic arch and descending thoracic aorta. Normal visualized thoracic spine. Normal visualized ribs, clavicles, and shoulders. There is no demonstrated abnormality of the visualized soft tissue structures of the upper abdomen. RAD/Chest 1 View (Portable) IMPRESSION: Patchy infiltrate in the left perihilar region as well as in the left lower lobe. Radiographic follow-up is recommended. Electronically Signed: Prakash Flowers MD at 11:04 EDT ,
[2023-11-25 11:03] LABS: Absolute Lymphocyte Count 1.22 X10^3/uL (0.83-4.51); Absolute Neutrophil Count 16.3 X10^3/uL (2.0-7.7); Basophil# 0.05 X10^3/uL; Basophil% 0.3 % (0-1); Eosinophil# 0.01 X10^3/uL; Eosinophils% 0.1 % (0-5); Hematocrit 33.4 % (40-54); Hemoglobin 10.5 g/dL (13.0-16.5); Lymphocyte # 1.22 X10^3/ul (0.83-4.51); Lymphocyte % 6.2 % (19-41); Mean Corp Hgb Conc 31.4 g/dL (32-36); Mean Corpuscular Hgb 27.5 pg (27.0-32.0); Mean Corpuscular Volume 87.4 fL (80-94); Monocyte# 1.78 X10^3/uL; Monocyte% 9.1 % (0-10); NRBC Flagged by Analyzer 0.2 % (0-5); Neutrophil # 16.26 X10^3/uL (2.7-7.7); POSITIVE DIFFERENTIAL YES; POSITIVE MORPHOLOGY YES; Platelet Count 381 K/mm3 (150-450); RBC Distribution Width CV 16.1 % (11.6-14.6); RBC Distribution Width SD 51.6 fl (35.1-43.9); Red Blood Count 3.82 M/mm3 (4.6-6.2); White Blood Count 19.6 K/mm3 (4.4-11.0)
[2023-11-25 11:15] LABS: Differential Indicated SCAN CRITERIA MET
[2023-11-25 11:49] LABS: Anion Gap 5 (5-15); BUN 42 mg/dL (7-18); BUN/Creat Ratio 20.5 RATIO (10-20); Calcium,Total 8.3 mg/dL (8.5-10.1); Chloride 109 mmol/L (98-107); Creatinine, Serum 2.05 mg/dL (0.70-1.30); EST Glomerular Filtration Rate 35 mL/min (>60); Est Glom Filt Rate - Afr Amer 42 mL/min (>60); Estimated Creatinine Clearance 44.43 ml/min; Glucose 88 mg/dL (74-106); Potassium 4.8 mmol/L (3.5-5.1); Sodium Level 140 mmol/L (136-145); Troponin-I HS 314 pg/mL (3.0-78.0)
[2023-11-25 11:50] LABS: International Normalized Ratio 1.1
[2023-11-25 11:58] LABS: Bacteria 0 SEEN /hpf (None Seen); Mucous, Urine 0 SEEN /hpf (<or=2+)
[2023-11-25 12:12] LABS: CPK Total, Creatine Kinase 204 U/L (39-308)
[2023-11-25 12:14] LABS: Lactic Acid 2.2 mmol/L (0.4-1.9)
[2023-11-25] MEDS: Piperacil/Tazobactam 3.375 GM in 0.9% Normal Saline (50mL MB+) 50 ML IV (12:15)
[2023-11-25 12:21] LABS: Color, Urine Yellow (Yellow); Glucose, Dipstick 1000 mg/dl (Normal); Ketone-Dipstick 5 mg/dl (Negative); Leukocyte Esterase-Dipstick 25 /ul (Negative); Nitrite-Dipstick Negative (Negative); Occult Blood-Urine 10 /ul (Negative); Protein-Dipstick 100 mg/dl (Negative); Specific Gravity, Urine 1.015 (1.002-1.030); Urine Bilirubin Dipstick Negative (Negative); Urine Clarity Sl. Cloudy (Clear); Urine Urobilinogen 1 mg/dl (Normal)
[2023-11-25 12:27] LABS: Red Blood Cells-Urine 0-5 SEEN /hpf (0-5); Squamous Epithelial Cells - UA 0-5 SEEN /hpf (0-5); White Blood Cells 0-5 SEEN /hpf (0-5)
[2023-11-25] MEDS: Vancomycin HCl 2,000 MG in 0.9% Normal Saline (500mL Bag) 500 ML 250 MG IV (13:05)
[2023-11-25] MEDS: 0.9% Normal Saline (1000mL) 1,000 ML 999 ML IV (13:15)
--- NOTE | 2023-11-25 13:18 | HP.PCM.HOS_ITS ---
HPI - General General Date of Admission: 11/25/23 HPI Narrative ERICK DIAZ, is a 63 M who presents to the hospital his skilled facility due to shortness of breath and hypoxia to 87% at the facility. Unfortunately he is a poor historian secondary to his baseline mental condition with schizophrenia as well as his current illness. It does look like he has a left-sided opacity on his left lung with an elevated white count. He is also tachypneic and between his lactic acid being elevated 2.2 and a creatinine greater than 2 he does meet criteria for sepsis due to bacterial pneumonia. He denies any chest pain but unclear as to how accurate obtained history is, EKG is nonischemic h owever he did have an elevated troponin to 314 with cardiac history. [facility] Medical History Anxiety and depression Atrial fibrillation Chest pain Chronic anemia CKD (chronic kidney disease), stage III Congestive heart failure (CHF) COPD (chronic obstructive pulmonary disease) Diabetes mellitus, type 2 Fe deficiency anemia HLD (hyperlipidemia) HTN (hypertension) Hx of non-ST elevation myocardial infarction (NSTEMI) Hypothyroidism Obesity PVD (peripheral vascular disease) Schizophrenia Smoker Tobacco use Home Medications atorvastatin 80 mg tablet 80 mg PO DAILY arterial disease 07/25/19 [History Last Taken 11/24/23] cholecalciferol (vitamin D3) 50 mcg (2,000 unit) capsule 2,000 unit PO DAILY supplement 07/25/19 [History Last Taken 11/25/23] haloperidol 5 mg tablet 5 mg PO Q6H PRN Agitation 07/25/19 [History Last Taken 11/15/23] levothyroxine 50 mcg tablet 50 mcg PO DAILY hypothyroid 07/25/19 [History Last Taken 11/25/23] lorazepam 1 mg tablet 1 mg PO Q6H PRN Agitation 07/25/19 [History Last Taken 11/15/23] metformin 1,000 mg tablet 1,000 mg PO BID DM 07/25/19 [History Last Taken 11/25/23] trazodone 100 mg tablet 100 mg PO QHS insom 07/25/19 [History Last Taken 11/24/23] albuterol sulfate 0.63 mg/3 mL solution for nebulization 0.63 mg inhalation TID Wheezing 09/23/21 [History Last Taken 11/25/23] losartan 100 mg tablet 100 mg PO DAILY hypertensio 09/23/21 [History Last Taken 11/25/23] aluminum-mag hydroxide-simethicone 400 mg-400 mg-40 mg/5 mL oral susp (Mylanta Maximum Strength) 15 ml PO Q4H PRN heartburn/indigestion 09/24/21 [History Last Taken Unknown] magnesium hydroxide 400 mg/5 mL oral suspension (Milk of Magnesia) 30 ml PO DAILY PRN Constipation 09/24/21 [History Last Taken Unknown] nicotine (polacrilex) 2 mg buccal lozenge 2 mg buccal Q2H PRN smoking alternative 09/24/21 [History Last Taken Unknown] acetaminophen 325 mg tablet (Tylenol) 650 mg PO Q4H PRN fever or pain 11/10/21 [History Last Taken Unknown] ferrous sulfate 325 mg (65 mg iron) tablet 325 mg PO DAILY iron 07/21/22 [History Last Taken 11/25/23] haloperidol 2 mg tablet 2 mg PO TID agitation 07/21/22 [History Last Taken 11/25/23] metoprolol tartrate 100 mg tablet 100 mg PO BID htn 30 days #0 tabs 07/23/22 [Rx Last Taken 11/25/23] divalproex 250 mg tablet,delayed release (Depakote) 250 mg PO BID paranoid schizophrenia 08/11/22 [History Last Taken 11/24/23] furosemide 40 mg tablet (Lasix) 40 mg PO DAILY chf 08/11/22 [History Last Taken 11/24/23] amlodipine 5 mg tablet 5 mg PO DAILY #90 tabs 08/30/22 [Rx Last Taken 11/25/23] divalproex 500 mg tablet,extended release 24 hr (Depakote ER) 500 mg PO BID paranoid schizopreh 07/20/23 [History Last Taken 11/25/23] empagliflozin 25 mg tablet (Jardiance) 25 mg PO DAILY DM 07/20/23 [History Last Taken 11/25/23] insulin lispro 100 unit/mL subcutaneous cartridge 17 unit subcut TID hyperglycemia 07/20/23 [History Last Taken 11/24/23] lorazepam 1 mg tablet 1 mg PO BID anxiety 07/20/23 [History Last Taken 11/25/23] medroxyprogesterone 10 mg tablet (Provera) 10 mg PO BID sexual aggression 07/20/23 [History Last Taken 11/25/23] aspirin 81 mg tablet,delayed release (Adult Aspirin Regimen) 81 mg PO DAILY PVD 11/19/23 [History Last Taken 11/25/23] glucagon HCl 1 mg solution for injection (Glucagon (HCl) Emergency Kit) 1 mg IM Q20M PRN hypoglycemia 11/19/23 [History Last Taken Unknown] nicotine 10 mg inhalation cartridge (Nicotrol) 1 inh inhalation Q2H PRN nicotine cravings 11/19/23 [History Last Taken Unknown] prednisone 20 mg tablet 40 mg (2 x 20 mg) PO DAILY 3 days #6 tabs 11/20/23 [Rx Last Taken 11/24/23] albuterol sulfate 0.63 mg/3 mL solution for nebulization 0.63 mg inhalation Q4H PRN shortness of breath or wheezing 11/25/23 [History Last Taken 11/25/23] insulin glargine 100 unit/mL subcutaneous solution (Lantus U-100 Insulin) 35 unit subcut QHS diabetes 11/25/23 [History Last Taken 11/24/23] oseltamivir 75 mg capsule (Tamiflu) 75 mg PO DAILY 11/25/23 [History Last Taken 11/25/23] Allergy/AdvReac Type Severity Reaction Status Date / Time No Known Allergies Allergy Verified 11/25/23 10:09 Family History Mother No family history of disorders Father No family history of disorders Other Hypertension Surgical History No history of previous surgery No history of previous surgery Social History household members: other details: [facility]. housing: other details: [facility]. Smoking Status: Current every day smoker tobacco type: cigarettes alcohol intake: never substance use type: does not use ROS Review of Systems ROS Unobtainable: due to mental condition Vital Signs Vital Signs Vital Signs: 11/25/23 10:10 11/25/23 10:16 11/25/23 10:16 Temperature 99.0 F 99.0 F Temperature Source Oral Oral Pulse Rate 92 88 Respiratory Rate 30 H 34 H Respiratory Effort Short of Breath Labored Accessory Muscle Use Respiratory Depth Normal Respiratory Pattern Tachypnea Blood Pressure 146/60 H 113/70 Blood Pressure Mean 88 84 Pulse Ox 92 93 Oxygen Delivery Method Room Air Nasal Cannula Room Air Oxygen Flow Rate (L/min) 2 11/25/23 10:52 11/25/23 10:52 11/25/23 11:13 Temperature 99.3 F H Temperature Source Axillary Pulse Rate 79 Respiratory Rate 26 H 30 H Respiratory Effort Respiratory Depth Respiratory Pattern Blood Pressure 122/69 H Blood Pressure Mean 86 Pulse Ox 95 95 97 Oxygen Delivery Method Nasal Cannula Nasal Cannula Oxygen Flow Rate (L/min) 2 3 11/25/23 12:00 11/25/23 10:53 11/25/23 11:00 Temperature 99.1 F Temperature Source Axillary Pulse Rate 80 85 82 Respiratory Rate 30 H 33 H 28 H Respiratory Effort Respiratory Depth Respiratory Pattern Blood Pressure 100/56 L 103/72 Blood Pressure Mean 70 84 Pulse Ox 95 Oxygen Delivery Method Nasal Cannula Oxygen Flow Rate (L/min) 2 11/25/23 11:10 11/25/23 11:30 11/25/23 11:43 Temperature Temperature Source Pulse Rate 80 89 81 Respiratory Rate 27 H 28 H 31 H Respiratory Effort Respiratory Depth Respiratory Pattern Blood Pressure 122/69 H Blood Pressure Mean 86 Pulse Ox Oxygen Delivery Method Oxygen Flow Rate (L/min) 11/25/23 11:45 11/25/23 11:50 11/25/23 12:00 Temperature Temperature Source Pulse Rate 83 79 77 Respiratory Rate 24 H 33 H 33 H Respiratory Effort Respiratory Depth Respiratory Pattern Blood Pressure 119/83 H 100/56 L Blood Pressure Mean 95 70 Pulse Ox Oxygen Delivery Method Oxygen Flow Rate (L/min) 11/25/23 13:00 Temperature 97.9 F Temperature Source Temporal Pulse Rate 81 Respiratory Rate 26 H Respiratory Effort Respiratory Depth Respiratory Pattern Blood Pressure 128/77 H Blood Pressure Mean 94 Pulse Ox 98 Oxygen Delivery Method Nasal Cannula Oxygen Flow Rate (L/min) 2 Weight Weight: 240 lb 8.389 oz Body Mass Index (BMI) 34.4 Physical Exam Narrative General: Alert but sleepy, Cooperative, No apparent distress HEENT: Atraumatic, PERRLA, EOMI, Normocephalic Oral: Dry mucosa Neck: Supple, No JVD Lungs: Diminished, Normal air movement, rhonchi, No wheeze, No rales, tachypneic Cardiovascular: Regular rate, Regular Rhythm, Normal S1, Normal S2, No murmurs Abdomen: Soft, Non Tender, Non-Distended, No Hepato-splenomegaly Extremities: Trace edema, Capillary Refill Less than 3 Seconds Skin: Chronic venous stasis changes Musculoskeletal: No Tenderness to Palpation of Joints or Extremities Neurological: No focal neurological deficits, Motor Exam 5/5 strength throughout, Sensory exam intact to light touch and pain Psych/Mental Status: Flat Results Lab / Micro Data 11/25/23 10:38 11/25/23 10:38 Labs: Laboratory Results - last 24 hr 11/25/23 10:38: WBC 19.6 H, RBC 3.82 L, Hgb 10.5 L, Hct 33.4 L, MCV 87.4, MCH 27.5, MCHC 31.4 L, RDW Std Deviation 51.6 H, RDW Coeff of Saman 16.1 H, Plt Count 381, MPV 11.0, Immature Gran % (Auto) 1.300 H, Neut % (Auto) 83.0 H, Lymph % (Auto) 6.2 L, [place] % (Auto) 9.1, Eos % (Auto) 0.1, Baso % (Auto) 0.3, Absolute Neuts (auto) 16.3 H, Absolute Lymphs (auto) 1.22, Nucleated RBC % 0.2, Differential Comment COMMENT, Diff Path Review January, PT 14.0, INR 1.1, APTT 34.0, Sodium 140, Potassium 4.8, Chloride 109 H, Carbon Dioxide 26.0, Anion Gap 5, BUN 42 H, Creatinine 2.05 H, Estim Creat Clear Calc 44.43, Est GFR (MDRD) Af Amer 42 L, Est GFR (MDRD) Non-Af 35 L, BUN/Creatinine Ratio 20.5 H, Glucose 88, Lactic Acid 2.2 H*, Calcium 8.3 L, Total Creatine Kinase 204, Troponin I High Sens 314 H* 11/25/23 10:38: Troponin I High Sens Cancelled 11/25/23 11:45: Urine Color Yellow, Urine Clarity Sl. Cloudy, Urine pH 5.0, Ur Specific [place] 1.015, Urine Protein 100 H, Urine Glucose (UA) 1000 H, Urine Ketones 5 H, Urine Occult Blood 10 H, Urine Nitrite Negative, Urine Bilirubin Negative, Urine Urobilinogen 1 H, Ur Leukocyte Esterase 25 H, Urine RBC 0-5 SEEN, Urine WBC 0-5 SEEN, Ur Squamous Epith Cells 0-5 SEEN, Urine Bacteria 0 SEEN, Urine Mucus 0 SEEN Micro: Microbiology 11/25/23 11:40 Mucosa - Nose SARS-CoV-2, Influenza & RSV (PCR) - Final Imaging Radiology Impression Chest X-Ray 11/25/23 10:47 IMPRESSION: Patchy infiltrate in the left perihilar region as well as in the left lower lobe. Radiographic follow-up is recommended. Electronically Signed: Prakash Flowers MD at 11:04 EDT , Assessment & Plan Assessment/Plan (1) Pneumonia: (2) Sepsis: PLAN: Plan 1. Sepsis secondary to left bacterial pneumonia ? Continue with Unasyn and azithromycin ? Will obtain a sputum culture ? He does have a history of CHF so after his fluid boluses for sepsis we will be gentle with 1 L at 75 cc/h ? Will hold his Lasix 2. CAD/HTN/HLD ? He did have a history of a non-STEMI however given his baseline health his caregiver refused a cardiac catheterization recommended medical management ? Will obtain serial troponins will not be very aggressive intervention at this time ? Will hold his losartan and his Lasix secondary to his sepsis and fluid requirements ? Continue with metoprolol and Norvasc ? Will monitor make adjustments as necessary ? Continue with Lipitor 3. DM2 ? Will hold his Jardiance and his metformin ? Continue with his insulin and sliding scale insulin ? Accu-Cheks ACHS ? Will monitor make adjustments as necessary 4. Paranoid schizophrenia/sexual aggression ? This does appear to be at baseline at the moment ? Will resume all of his home medications ? Continue with his medroxyprogesterone 5. Hypothyroidism ? Stable ? Continue with Synthroid 6. Iron deficiency anemia ? Stable ? Continue with iron supplementation DVT: Heparin Sepsis Attestation Sepsis Attestation: Agree w/Sepsis Date exam was performed: 11/25/23 Time exam was performed: 13:19 Possible Source of Sepsis: Pulmonary Sepsis Organ Dysfunction Criteria Present: Creatinine > 2.0 mg/dL and Lactic Acid > 2 mmol/L Fluid Resuscitation Fluid resuscitation indicated?: Yes Fluid Resuscitation ordered: 30 ml/kg fluid bolus ordered Charges/Coding Visit Charges Inpatient E&M: 42044 Init Hosp L3
[2023-11-25 13:24] LABS: Valproic Acid (Depakene) Level 54 ug/mL (50-100)
--- NOTE | 2023-11-25 13:33 | EDS_ITS ---
HPI History of Present Illness Chief Complaint: Shortness of Breath Narrative Narrative: 63-year-old male from [facility]. He states he is short of breath. When he is asked any question he states I cannot answer any question because I lost my breath. He is a poor informant. PFSH PFSH Medical History Anxiety and depression Chronic anemia CKD (chronic kidney disease), stage III Congestive heart failure (CHF) COPD (chronic obstructive pulmonary disease) Diabetes mellitus, type 2 Fe deficiency anemia HLD (hyperlipidemia) HTN (hypertension) Hx of non-ST elevation myocardial infarction (NSTEMI) Hypothyroidism Obesity PVD (peripheral vascular disease) Schizophrenia Tobacco use Home Medications atorvastatin 80 mg tablet 80 mg PO DAILY arterial disease 07/25/19 [History Last Taken 11/24/23] cholecalciferol (vitamin D3) 50 mcg (2,000 unit) capsule 2,000 unit PO DAILY supplement 07/25/19 [History Last Taken 11/25/23] haloperidol 5 mg tablet 5 mg PO Q6H PRN Agitation 07/25/19 [History Last Taken 11/15/23] levothyroxine 50 mcg tablet 50 mcg PO DAILY hypothyroid 07/25/19 [History Last Taken 11/25/23] lorazepam 1 mg tablet 1 mg PO Q6H PRN Agitation 07/25/19 [History Last Taken 11/15/23] metformin 1,000 mg tablet 1,000 mg PO BID DM 07/25/19 [History Last Taken 11/25/23] trazodone 100 mg tablet 100 mg PO QHS insom 07/25/19 [History Last Taken 11/24/23] albuterol sulfate 0.63 mg/3 mL solution for nebulization 0.63 mg inhalation TID Wheezing 09/23/21 [History Last Taken 11/25/23] losartan 100 mg tablet 100 mg PO DAILY hypertensio 09/23/21 [History Last Taken 11/25/23] aluminum-mag hydroxide-simethicone 400 mg-400 mg-40 mg/5 mL oral susp (Mylanta Maximum Strength) 15 ml PO Q4H PRN heartburn/indigestion 09/24/21 [History Last Taken Unknown] magnesium hydroxide 400 mg/5 mL oral suspension (Milk of Magnesia) 30 ml PO DAILY PRN Constipation 09/24/21 [History Last Taken Unknown] nicotine (polacrilex) 2 mg buccal lozenge 2 mg buccal Q2H PRN smoking alter soboba 09/24/21 [History Last Taken Unknown] acetaminophen 325 mg tablet (Tylenol) 650 mg PO Q4H PRN fever or pain 11/10/21 [History Last Taken Unknown] ferrous sulfate 325 mg (65 mg iron) tablet 325 mg PO DAILY iron 07/21/22 [History Last Taken 11/25/23] haloperidol 2 mg tablet 2 mg PO TID agitation 07/21/22 [History Last Taken 11/25/23] metoprolol tartrate 100 mg tablet 100 mg PO BID htn 30 days #0 tabs 07/23/22 [Rx Last Taken 11/25/23] divalproex 250 mg tablet,delayed release (Depakote) 250 mg PO BID paranoid schizophrenia 08/11/22 [History Last Taken 11/24/23] furosemide 40 mg tablet (Lasix) 40 mg PO DAILY chf 08/11/22 [History Last Taken 11/24/23] amlodipine 5 mg tablet 5 mg PO DAILY #90 tabs 08/30/22 [Rx Last Taken 11/25/23] divalproex 500 mg tablet,extended release 24 hr (Depakote ER) 500 mg PO BID paranoid schizopreh 07/20/23 [History Last Taken 11/25/23] empagliflozin 25 mg tablet (Jardiance) 25 mg PO DAILY DM 07/20/23 [History Last Taken 11/25/23] insulin lispro 100 unit/mL subcutaneous cartridge 17 unit subcut TID hyperglycemia 07/20/23 [History Last Taken 11/24/23] lorazepam 1 mg tablet 1 mg PO BID anxiety 07/20/23 [History Last Taken 11/25/23] medroxyprogesterone 10 mg tablet (Provera) 10 mg PO BID sexual aggression 07/20/23 [History Last Taken 11/25/23] aspirin 81 mg tablet,delayed release (Adult Aspirin Regimen) 81 mg PO DAILY PVD 11/19/23 [History Last Taken 11/25/23] glucagon HCl 1 mg solution for injection (Glucagon (HCl) Emergency Kit) 1 mg IM Q20M PRN hypoglycemia 11/19/23 [History Last Taken Unknown] nicotine 10 mg inhalation cartridge (Nicotrol) 1 inh inhalation Q2H PRN nicotine cravings 11/19/23 [History Last Taken Unknown] prednisone 20 mg tablet 40 mg (2 x 20 mg) PO DAILY 3 days #6 tabs 11/20/23 [Rx Last Taken 11/24/23] albuterol sulfate 0.63 mg/3 mL solution for nebulization 0.63 mg inhalation Q4H PRN shortness of breath or wheezing 11/25/23 [History Last Taken 11/25/23] insulin glargine 100 unit/mL subcutaneous solution (Lantus U-100 Insulin) 35 unit subcut QHS diabetes 11/25/23 [History Last Taken 11/24/23] oseltamivir 75 mg capsule (Tamiflu) 75 mg PO DAILY 11/25/23 [History Last Taken 11/25/23] Allergy/AdvReac Type Severity Reaction Status Date / Time No Known Allergies Allergy Verified 11/25/23 10:09 Family History Mother No family history of disorders Father No family history of disorders Other Hypertension Surgical History No history of previous surgery No history of previous surgery Social History household members: other details: [facility]. housing: other details: [facility]. Smoking Status: Current every day smoker tobacco type: cigarettes alcohol intake: never substance use type: does not use ROS ROS ED Review of Systems ROS Unobtainable: due to mental condition and due to mental status EXAM Physical Exam Const Vital Signs: 11/25/23 10:10 11/25/23 10:16 11/25/23 10:16 Temperature 99.0 F 99.0 F Temperature Source Oral Oral Pulse Rate 92 88 Respiratory Rate 30 H 34 H Respiratory Effort Short of Breath Labored Accessory Muscle Use Respiratory Depth Normal Respiratory Pattern Tachypnea Blood Pressure 146/60 H 113/70 Blood Pressure Mean 88 84 Pulse Ox 92 93 Oxygen Delivery Method Room Air Nasal Cannula Room Air Oxygen Flow Rate (L/min) 2 11/25/23 10:52 11/25/23 10:52 11/25/23 11:13 Temperature 99.3 F H Temperature Source Axillary Pulse Rate 79 Respiratory Rate 26 H 30 H Respiratory Effort Respiratory Depth Respiratory Pattern Blood Pressure 122/69 H Blood Pressure Mean 86 Pulse Ox 95 95 97 Oxygen Delivery Method Nasal Cannula Nasal Cannula Oxygen Flow Rate (L/min) 2 3 11/25/23 12:00 11/25/23 10:53 11/25/23 11:00 Temperature 99.1 F Temperature Source Axillary Pulse Rate 80 85 82 Respiratory Rate 30 H 33 H 28 H Respiratory Effort Respiratory Depth Respiratory Pattern Blood Pressure 100/56 L 103/72 Blood Pressure Mean 70 84 Pulse Ox 95 Oxygen Delivery Method Nasal Cannula Oxygen Flow Rate (L/min) 2 11/25/23 11:10 11/25/23 11:30 11/25/23 11:43 Temperature Temperature Source Pulse Rate 80 89 81 Respiratory Rate 27 H 28 H 31 H Respiratory Effort Respiratory Depth Respiratory Pattern Blood Pressure 122/69 H Blood Pressure Mean 86 Pulse Ox Oxygen Delivery Method Oxygen Flow Rate (L/min) 11/25/23 11:45 11/25/23 11:50 11/25/23 12:00 Temperature Temperature Source Pulse Rate 83 79 77 Respiratory Rate 24 H 33 H 33 H Respiratory Effort Respiratory Depth Respiratory Pattern Blood Pressure 119/83 H 100/56 L Blood Pressure Mean 95 70 Pulse Ox Oxygen Delivery Method Oxygen Flow Rate (L/min) 11/25/23 13:00 Temperature 97.9 F Temperature Source Temporal Pulse Rate 81 Respiratory Rate 26 H Respiratory Effort Respiratory Depth Respiratory Pattern Blood Pressure 128/77 H Blood Pressure Mean 94 Pulse Ox 98 Oxygen Delivery Method Nasal Cannula Oxygen Flow Rate (L/min) 2 Positive unkempt General Appearance ED: unkempt; Negative for pallor HEENT Reports dry mucous membranes atraumatic Mouth ED: Yes dry mucous membranes Mouth: dry mucous membranes Eyes PERRL and EOMs intact bilaterally Neck no lymphadenopathy and supple Resp Resp Narrative: Tachypneic Auscultation: diminished lung sounds right and left Cardio regular rate and regular rhythm GI non-tender Neuro Sensorium / Orientation: alert Motor Exam: general weakness Psych Appearance: unkempt Skin General Skin Exam: Negative for jaundice or pallor MDM MDM MDM Narrative Medical decision making narrative: Patient presenting with altered mental status. He is a poor informant. His only complaint is that he is short of breath. He cannot answer any questions although he can speak vital signs are stable other than a slightly hypoxic and on 2 L nasal cannula and he is slightly hypnic. He is protecting his airway. Differential includes pneumonia, UTI, sepsis, dehydration, anemia, electro normalities, COVID, influenza, RSV, ACS, Depakote toxicity. CBC obtained to assess white blood cell count, hemoglobin, platelets. BMP to assess renal function, electrolytes, glucose. Lactic acid will also be obtained as part of septic workup. Patient was cultured. CPK is normal. High-sensitivity opponent has been 14 however he is typically elevated. He does not have a specific complaint of chest pain. Urinalysis negative. Depakote level therapeutic. Chest x-ray on my interpretation shows patchy infiltrate in the left perihilar region as well as the left lower lobe. Radiology interprets this and agrees. Patient was given aspirin 325 mg. Started on vancomycin and Zosyn. 2 L of IV f luids were given. COVID, influenza, RSV negative. Patient discussed with hospitalist for admission. Impression: 1. Pneumonia 2. Hypoxic respiratory failure 3. Sepsis 4. Delirium Lab Data Labs: Laboratory Results - last 24 hr 11/25/23 11/25/23 11/25/23 10:38 10:38 11:45 WBC 19.6 H RBC 3.82 L Hgb 10.5 L Hct 33.4 L MCV 87.4 MCH 27.5 MCHC 31.4 L RDW Std Deviation 51.6 H RDW Coeff of Saman 16.1 H Plt Count 381 MPV 11.0 Immature Gran % (Auto) 1.300 H Neut % (Auto) 83.0 H Lymph % (Auto) 6.2 L [place] % (Auto) 9.1 Eos % (Auto) 0.1 Baso % (Auto) 0.3 Absolute Neuts (auto) 16.3 H Absolute Lymphs (auto) 1.22 Nucleated RBC % 0.2 Differential Comment COMMENT Diff Path Review January foll PT 14.0 INR 1.1 APTT 34.0 Sodium 140 Potassium 4.8 Chloride 109 H Carbon Dioxide 26.0 Anion Gap 5 BUN 42 H Creatinine 2.05 H Estim Creat Clear Calc 44.43 Est GFR (MDRD) Af Amer 42 L Est GFR (MDRD) Non-Af 35 L BUN/Creatinine Ratio 20.5 H Glucose 88 Lactic Acid 2.2 H* Calcium 8.3 L Total Creatine Kinase 204 Troponin I High Sens 314 H* Cancelled Urine Color Yellow Urine Clarity Sl. Cloudy Urine pH 5.0 Ur Specific [place] 1.015 Urine Protein 100 H Urine Glucose (UA) 1000 H Urine Ketones 5 H Urine Occult Blood 10 H Urine Nitrite Negative Urine Bilirubin Negative Urine Urobilinogen 1 H Ur Leukocyte Esterase 25 H Urine RBC 0-5 SEEN Urine WBC 0-5 SEEN Ur Squamous Epith Cells 0-5 SEEN Urine Bacteria 0 SEEN Urine Mucus 0 SEEN Valproic Acid 54 Radiography Diagnostic Testing: Clinical Impression(s) from Imaging Studies Chest X-Ray 11/25/23 10:47 IMPRESSION: Patchy infiltrate in the left perihilar region as well as in the left lower lobe. Radiographic follow-up is recommended. Electronically Signed: Prakash Flowers MD at 11:04 EDT , Discharge Plan Triage Chief Complaint: Shortness of Breath ED Provider: Keagan Bustos Dx/Rx/DC Orders Prescriptions: No Action acetaminophen [Tylenol] 325 mg tablet 650 mg PO Q4H PRN (Reason: fever or pain) Jardiance 25 mg tablet 25 mg PO DAILY lorazepam 1 mg tablet 1 mg PO BID Patient Comments: PT TAKES 1 TAB TWICE DAILTY ROUTINE, AND THEN 1 TAB EVERY 6 HOURS NEEDED. medroxyprogesterone [Provera] 10 mg tablet 10 mg PO BID furosemide [Lasix] 40 mg tablet 40 mg PO DAILY divalproex [Depakote] 250 mg tablet,delayed release (DR/EC) 250 mg PO BID atorvastatin 80 MG tablet 80 mg PO DAILY lorazepam 1 MG tablet 1 mg PO Q6H PRN (Reason: Agitation) Patient Comments: PT TAKES 1 TAB TWICE DAILTY ROUTINE, AND THEN 1 TAB EVERY 6 HOURS NEEDED. haloperidol 5 MG tablet 5 mg PO Q6H PRN (Reason: Agitation) Patient Comments: PT TAKES 2MG THREE TIMES A DAY ROUTINELY, AND 5MG EVERY 6 HOURS NEEDED trazodone 100 MG tablet 100 mg PO QHS levothyroxine 50 MCG tablet 50 mcg PO DAILY metformin 1,000 MG tablet 1,000 mg PO BID cholecalciferol (vitamin D3) 2,000 UNIT capsule 2,000 unit PO DAILY insulin lispro 100 unit/mL cartridge 17 unit subcut TID Rx Instructions: HOLD INSULIN LISPRO IF BS IS <100 albuterol sulfate 0.63 mg/3 mL solution for nebulization 0.63 mg inhalation TID Patient Comments: PT TAKES THREE TIMES DAILY ROUTINE, THEN EVERY 4 HOURS NEEDED losartan 100 mg tablet 100 mg PO DAILY magnesium hydroxide [Milk of Magnesia] 400 mg/5 mL Suspension 30 ml PO DAILY PRN (Reason: Constipation) alum-mag hydroxide-simeth [Mylanta Maximum Strength] 400-400-40 mg/5 mL Suspension 15 ml PO Q4H PRN (Reason: heartburn/indigestion) nicotine (polacrilex) 2 mg Lozenge 2 mg BUCCAL Q2H PRN (Reason: smoking alternative) ferrous sulfate 325 mg (65 mg iron) Tablet 325 mg PO DAILY haloperidol 2 mg Tablet 2 mg PO TID Patient Comments: PT TAKES 2MG THREE TIMES A DAY ROUTINELY, AND 5MG EVERY 6 HOURS NEEDED metoprolol tartrate 100 mg Tablet 100 mg PO BID 30 Days Qty: 0 0RF divalproex [Depakote ER] 500 mg tablet extended release 24 hr 500 mg PO BID aspirin [Adult Aspirin Regimen] 81 mg tablet,delayed release (DR/EC) 81 mg PO DAILY glucagon HCl [Glucagon (HCl) Emergency Kit] 1 mg recon soln 1 mg IM Q20M PRN (Reason: hypoglycemia) Rx Instructions: until target blood sugar attained Nicotrol 10 mg cartridge 1 inh inhalation Q2H PRN (Reason: nicotine cravings) Rx Instructions: DO NOT EXCEED 8 CARTIDGES A DAY prednisone 20 mg tablet 40 mg PO DAILY 3 Days Qty: 6 0RF insulin glargine [Lantus U-100 Insulin] 100 unit/mL solution 35 unit subcut QHS oseltamivir [Tamiflu] 75 mg capsule 75 mg PO DAILY albuterol sulfate 0.63 mg/3 mL solution for nebulization 0.63 mg inhalation Q4H PRN (Reason: shortness of breath or wheezing) Patient Comments: PT TAKES THREE TIMES DAILY ROUTINE, THEN EVERY 4 HOURS NEEDED amlodipine 5 mg tablet 5 mg PO DAILY Qty: 90 0RF Primary Care Provider: Bernard Hankins Referrals: Bernard Hankins MD [Primary Care Provider] -
[2023-11-25 15:36] LABS: Reflex Lactate? Y
[2023-11-25] MEDS: 0.9% Normal Saline (1000mL) 1,000 ML 75 ML IV (16:21)
[2023-11-25 16:39] LABS: Lactic Acid 1.1 mmol/L (0.4-1.9)
[2023-11-25 17:01] LABS: Troponin-I HS 259 pg/mL (3.0-78.0)
[2023-11-25 17:13] LABS: Bedside Glucose 60 mg/dL (74-106)
[2023-11-25 18:42] LABS: Bedside Glucose 96 mg/dL (74-106)
[2023-11-25] MEDS: Atorvastatin Calcium 80 MG Tablet PO (20:27)
[2023-11-25] MEDS: LORazepam 1 MG Tablet PO (20:28)
[2023-11-25] MEDS: Metoprolol Tartrate 100 MG Tablet PO (20:29)
[2023-11-25] MEDS: traZODone 100 MG Tablet PO (20:30)
[2023-11-25] MEDS: Haloperidol 1 MG Tablet 2 MG PO (20:32)
[2023-11-25] MEDS: Divalproex Sodium 250 MG Tablet PO (20:40)
[2023-11-25] MEDS: Divalproex Sodium 250 MG Tablet 500 MG PO (20:46)
[2023-11-25] MEDS: Albuterol 2.5 MG/3 ML VIAL.NEB. 0.63 MG INHALATION (20:46)
[2023-11-25] MEDS: Heparin Injection (Vial) 5,000 UNIT/ML VIAL 5000 UNIT SC (21:56)
[2023-11-25] MEDS: MEDROXYPROGESTERONE ACETATE 10 MG TABLET PO (21:58)
[2023-11-25] MEDS: Ampicillin/Sulbactam 3 GM in 0.9% Normal Saline (100mL MB+) 100 ML IV (22:21)
[2023-11-25 22:41] LABS: Bedside Glucose 85 mg/dL (74-106)
[2023-11-25] MEDS: Azithromycin 500 MG in Dextrose 5%-Water (250mL Bag) 250 ML 250 MG IV (23:18)
[2023-11-26] VITALS (11 sets, daily range): BP systolic 96–150; BP diastolic 63–83; PULSE 69–98; RESP 18–30; TEMP 36.3–36.6; O2SAT 96–98
[2023-11-26] MEDS: Haloperidol 5 MG Tablet PO (00:17)
[2023-11-26] MEDS: LORazepam 1 MG Tablet PO ×3 (00:17→18:56)
[2023-11-26] MEDS: Furosemide 40 MG/4 ML Vial IV (01:22)
[2023-11-26 01:38] LABS: BNP,B-Type NATRIURETIC PEPTIDE 321.9 pg/mL (0-100)
--- NOTE | 2023-11-26 01:45 | RAD_ITS ---
STUDY: X-RAY CHEST REASON FOR EXAM: Male, 63 years old. tachypnea TECHNIQUE: Single AP portable view of the chest. COMPARISON: November 25, 2023 FINDINGS: 1. No interval change in mild to moderate left upper and lower lobe pneumonic consolidation 2. No interval change in mild patchy interstitial infiltrates of the perihilar region of the right lower lobe 3. No visualized pleural effusion 4. Normal heart size 5. Stable mediastinum and osseous structures There is no demonstrated abnormality of the visualized soft tissue structures of the upper abdomen. RAD/Chest 1 View (Portable) IMPRESSION: * Unresolved bilateral pneumonia, left greater than right Electronically Signed: Ascencion Ibarra MD at 8:29 EDT ,
[2023-11-26 01:57] LABS: Absolute Lymphocyte Count 0.84 X10^3/uL (0.83-4.51); Absolute Neutrophil Count 26.7 X10^3/uL (2.0-7.7); Basophil# 0.09 X10^3/uL; Basophil% 0.3 % (0-1); Eosinophil# 0.06 X10^3/uL; Eosinophils% 0.2 % (0-5); Hematocrit 33.3 % (40-54); Hemoglobin 10.4 g/dL (13.0-16.5); Lymphocyte # 0.84 X10^3/ul (0.83-4.51); Lymphocyte % 2.8 % (19-41); Mean Corp Hgb Conc 31.2 g/dL (32-36); Mean Corpuscular Hgb 27.5 pg (27.0-32.0); Mean Corpuscular Volume 88.1 fL (80-94); Mean Platelet Vol. 11.6 fl (6.2-12.0); Monocyte# 1.98 X10^3/uL; Monocyte% 6.6 % (0-10); NRBC Flagged by Analyzer 0 % (0-5); Neutrophil # 26.68 X10^3/uL (2.7-7.7); Neutrophil % 88.4 % (47-70); POSITIVE COUNT YES; POSITIVE DIFFERENTIAL YES; POSITIVE MORPHOLOGY YES; Platelet Count 418 K/mm3 (150-450); RBC Distribution Width SD 51.4 fl (35.1-43.9); Red Blood Count 3.78 M/mm3 (4.6-6.2)
[2023-11-26 02:02] LABS: White Blood Count 30.2 K/mm3 (4.4-11.0)
[2023-11-26 02:03] LABS: Differential Indicated SCAN CRITERIA MET
[2023-11-26 02:10] LABS: Anion Gap 3 (5-15); BUN 40 mg/dL (7-18); BUN/Creat Ratio 22.1 RATIO (10-20); Calcium,Total 8.3 mg/dL (8.5-10.1); Chloride 112 mmol/L (98-107); Creatinine, Serum 1.81 mg/dL (0.70-1.30); EST Glomerular Filtration Rate 40 mL/min (>60); Est Glom Filt Rate - Afr Amer 49 mL/min (>60); Estimated Creatinine Clearance 49.49 ml/min; Glucose 106 mg/dL (74-106); Sodium Level 141 mmol/L (136-145)
[2023-11-26] MEDS: Ampicillin/Sulbactam 3 GM in 0.9% Normal Saline (100mL MB+) 100 ML IV ×3 (05:17→21:48)
[2023-11-26] MEDS: Levothyroxine 50 MCG Tablet PO (05:20)
[2023-11-26] MEDS: Haloperidol 1 MG Tablet 2 MG PO ×2 (05:20→20:25)
[2023-11-26 05:27] LABS: Differential Comment SCANNED
[2023-11-26] MEDS: Albuterol 2.5 MG/3 ML VIAL.NEB. 0.63 MG INHALATION ×2 (07:27→22:36)
[2023-11-26 08:04] LABS: Blood Gas Specimen Type VEN; O2 Delivery Device Cannula; SITE Not entered; VBG BASE EXCESS -1 mmol/L (-1.0-3.5); VBG Bicarbonate 25 mmol/L (22-26); VBG PO2 56 mmHg (25-40); VBG SO2 84 % (50-70); VBG TCO2 27 mmol/L (23-33); VBG pCO2 52.5 mmHg (41-51); VBG pH 7.29 (7.32-7.42)
--- NOTE | 2023-11-26 08:49 | CPS ---
RT went into Pt room. Pt was having snoring respirations and hard to wake up. Talked to RN, RN stated he didnt know anything about it and that the patient was a handful last night. RT talked to supercharger mechanic to see who the doctor was for the PT. RT got an order for an ABG. Pt PH was 7.28, Dr Glover aware of gas at this time.
[2023-11-26 08:51] LABS: Troponin-I HS 229 pg/mL (3.0-78.0)
[2023-11-26 09:24] LABS: Bedside Glucose 138 mg/dL (74-106)
[2023-11-26] MEDS: Azithromycin 500 MG in Dextrose 5%-Water (250mL Bag) 250 ML 250 MG IV (10:02)
[2023-11-26] MEDS: 0.9% Saline Lock 10 ML Syringe IV (10:08)
[2023-11-26] MEDS: Heparin Injection (Vial) 5,000 UNIT/ML VIAL 5000 UNIT SC ×2 (10:10→21:47)
[2023-11-26] MEDS: MEDROXYPROGESTERONE ACETATE 10 MG TABLET PO ×2 (10:24→20:25)
[2023-11-26] MEDS: Aspirin E.C. 81 MG Tablet PO (10:24)
[2023-11-26] MEDS: amLODIPine 5 MG Tablet PO (10:24)
[2023-11-26] MEDS: Divalproex Sodium 250 MG Tablet 500 MG PO ×2 (10:25→20:25)
[2023-11-26] MEDS: Metoprolol Tartrate 100 MG Tablet PO ×2 (10:25→20:28)
[2023-11-26 10:30] LABS: Troponin-I HS 278 pg/mL (3.0-78.0)
[2023-11-26] MEDS: Insulin Lispro 100 UNIT/ML INSULN.PEN SC ×2 (11:40→16:43)
--- NOTE | 2023-11-26 12:00 | CASEMGMT ---
Social Work This physician underwriter notified by nurse case operator that patient is from [facility]. Chart reviewed including transfer summary the nursing facility provided. Patient has been a resident at the nursing facility since 2012 is currently intermediate level of care, and the patient's brother Umang Chung is listed as the legal guardian. Called patient's brother Umang, who confirms desire for patient to return to [facility]. No interest in other facilities. [facility] would like to be contacted when patient is ready for discharge. Called [facility] and spoke with a Eileen or Koby, who reports patient is able to return when ready. This physician underwriter asked for the letter of guardianship to be faxed to the hospital so that could be placed on the patient's medical record. [facility]. Green sheet placed on chart in case patient is ready for discharge this weekend. Plan: return to [facility] when ready for discharge. -EV Yates, WHITEWASHER *This note was generated with [employer] dictation software. It may contain incorrect words, spelling, and punctuation that were not noted in review of the chart prior to signing*
[2023-11-26 12:25] LABS: Bedside Glucose 179 mg/dL (74-106)
[2023-11-26 14:07] LABS: Troponin-I HS 265 pg/mL (3.0-78.0)
--- NOTE | 2023-11-26 16:07 | PN_ITS ---
Subjective Subjective Patient seen and examined. He was admitted with a complaint of shortness of breath. He has been managed for acute hypoxic respiratory failure due to community acquired pneumonia. Patient seen and examined. Patient was quite restless. He could answer some questions and knew where he was. He said he came in because he was short of breath but could not tell me anything else. Unable to do review of systems due to his patient was lethargic. Objective Data Objective Data Vital Signs: Vital Signs Temp Pulse Resp BP Pulse Ox O2 Del Method O2 Flow Rate 97.3 F L 73 20 H 118/63 98 Nasal Cannula 4 11/26/23 15:00 11/26/23 15:00 11/26/23 15:00 11/26/23 15:00 11/26/23 15:00 11/26/23 15:00 11/26/23 15:00 Oxygen Flow Rate (L/min) 4 Oxygen Delivery Method Nasal Cannula Weight: 232 lb 9.403 oz Body Mass Index (BMI) 33.3 Intake & Output: Intake and Output for Last 24 Hours 11/24/23 11/25/23 11/26/23 23:59 23:59 23:59 Intake Total 2051 / 2051 1541.5 / 1541.5 Output Total 200 / 200 Balance 1852 / 1852 1541.5 / 1541.5 Lab / Micro Data 11/26/23 01:08 11/26/23 01:08 Labs: Laboratory Results - last 24 hr 11/25/23 15:58: Lactic Acid 1.1, Troponin I High Sens 259 H* 11/25/23 16:52: POC Glucose 60 L 11/25/23 18:24: POC Glucose 96 11/25/23 21:53: POC Glucose 85 11/26/23 01:08: WBC 30.2 H*, RBC 3.78 L, Hgb 10.4 L, Hct 33.3 L, MCV 88.1, MCH 27.5, MCHC 31.2 L, RDW Std Deviation 51.4 H, RDW Coeff of Saman 16.0 H, Plt Count 418, MPV 11.6, Immature Gran % (Auto) 1.700 H, Neut % (Auto) 88.4 H, Lymph % (Auto) 2.8 L, [place] % (Auto) 6.6, Eos % (Auto) 0.2, Baso % (Auto) 0.3, Absolute Neuts (auto) 26.7 H, Absolute Lymphs (auto) 0.84, Nucleated RBC % 0, Differential Comment SCANNED, Diff Path Review January, Sodium 141, Potassium 5.0, Chloride 112 H, Carbon Dioxide 26.0, Anion Gap 3 L, BUN 40 H, Creatinine 1.81 H, Estim Creat Clear Calc 49.49, Est GFR (MDRD) Af Amer 49 L, Est GFR (MDRD) Non-Af 40 L, BUN/Creatinine Ratio 22.1 H, Glucose 106, Calcium 8.3 L, B- Natriuretic Peptide 321.9 H 11/26/23 07:55: Troponin I High Sens 229 H* 11/26/23 08:38: POC Glucose 138 H 11/26/23 09:31: Troponin I High Sens 278 H* 11/26/23 11:36: POC Glucose 179 H 11/26/23 13:31: Troponin I High Sens 265 H* Micro: Microbiology 11/26/23 11:26 Stool Clostridioides difficile (PCR) - Final 11/25/23 11:45 Urine, Catheterized Urine Culture - Preliminary Culture exhibits no growth. 11/25/23 10:38 Blood Culture (Wb) - Anticubital Left Blood Culture - Preliminary 11/25/23 11:40 Mucosa - Nose SARS-CoV-2, Influenza & RSV (PCR) - Final ABG Data ABG results: ABG 11/26/23 08:00 Specimen Type EDWIN Sample Site Not entered O2 % 4.0 VBG pH 7.29 L VBG pO2 56 H VBG HCO3 25 VBG Total CO2 27 VBG O2 Sat (Calc) 84 H VBG Base Excess -1 POC Mix VBG pCO2 Pt Tmp 52.5 H O2 Delivery Device Cannula Radiography Diagnostic Testing: Radiology Impression Chest X-Ray 11/26/23 01:45 IMPRESSION: * Unresolved bilateral pneumonia, left greater than right Electronically Signed: Ascencion Ibarra MD at 8:29 EDT , Physical Exam Const Constitutional Narrative: alert, lethargic, restless Orientation / Consciousness: lethargic HEENT normocephalic and head/scalp atraumatic Mouth: dry mucous membranes Eyes PERRL and EOMs intact bilaterally Neck no lymphadenopathy and supple Lymph Lymphatic: no lymphadenopathy noted, no lymphedema noted and lymphedema Resp Resp Narrative: diminished breath sounds bilaterally, coarse crackles in all lung bailey. On 4L of oxygen. Cardio regular rate, regular rhythm, S1 normal heart sound, S2 normal heart sound and no murmurs GI normal to inspection, nondistended, normoactive bowel sounds, soft to palpation, non-tender and non-distended Extremity normal capillary refill, no clubbing, cyanosis or edema and no calf tenderness General Extremity: no tenderness to palpation of joints or extremities Skin General Skin Exam: no breakdown Neuro Neuro Narrative: Patient lethargic, moves all extremities. Motor Exam: general weakness Psych Psych Narrative: restless Assessment & Plan Assessment/Plan (1) Sepsis: (2) Pneumonia: PLAN: Plan #Sepsis due to left sided bacterial pneumonia * On IV Unasyn and azithromycin. There is concern for aspiration. * Sputum culture and blood cultures pending. * Breathing treatments bronchodilators. Titrate oxygen to maintain saturation above 90%. * WBC is up to 30.2. Will broaden antibiotics to IV vancomycin and Zosyn. * #CAD: * Has a history of non-STEMI. He did have a cath in the past because his caregiver refused this. * Lasix and losartan held on admission due to low blood pressure. * On Lipitor * #CKD stage III: Creatinine is 1.8-1. Baseline creatinine is around 2. Will monitor. #Hypertension: On metoprolol and Norvasc. #Type 2 diabetes mellitus: Jardiance and metformin on hold. On lantus. Insulin sliding scale. Accuchecks ACHS #Paranoid schizophrenia: depakote and haldol #Hypothyroidism: On Synthroid #Iron deficiency anemia:on oral iron supplementation DVT prophylaxis: lovenox Charges/Coding Visit Charges Inpatient E&M: 63137 Subs Hosp L3
[2023-11-26 17:05] LABS: Bedside Glucose 172 mg/dL (74-106)
[2023-11-26] MEDS: Divalproex Sodium 250 MG Tablet PO (20:25)
[2023-11-26] MEDS: traZODone 100 MG Tablet PO (20:25)
[2023-11-26] MEDS: Atorvastatin Calcium 80 MG Tablet PO (20:25)
[2023-11-26 22:17] LABS: Bedside Glucose 130 mg/dL (74-106)
[2023-11-27] VITALS (9 sets, daily range): BP systolic 102–135; BP diastolic 56–67; PULSE 70–82; RESP 16–20; TEMP 36.4–36.7; O2SAT 93–97
[2023-11-27] MEDS: LORazepam 1 MG Tablet PO ×2 (00:36→20:50)
[2023-11-27] MEDS: Haloperidol 5 MG Tablet PO (01:33)
[2023-11-27] MEDS: Haloperidol 1 MG Tablet 2 MG PO (05:12)
[2023-11-27] MEDS: Levothyroxine 50 MCG Tablet PO (05:12)
[2023-11-27] MEDS: Ampicillin/Sulbactam 3 GM in 0.9% Normal Saline (100mL MB+) 100 ML IV (05:58)
[2023-11-27 06:49] LABS: Bedside Glucose 172 mg/dL (74-106)
[2023-11-27 06:53] LABS: Absolute Lymphocyte Count 0.71 X10^3/uL (0.83-4.51); Absolute Neutrophil Count 28.7 X10^3/uL (2.0-7.7); Basophil# 0.11 X10^3/uL; Basophil% 0.3 % (0-1); Eosinophil# 0.02 X10^3/uL; Eosinophils% 0.1 % (0-5); Hematocrit 36.3 % (40-54); Hemoglobin 11.1 g/dL (13.0-16.5); Lymphocyte # 0.71 X10^3/ul (0.83-4.51); Lymphocyte % 2.2 % (19-41); Mean Corp Hgb Conc 30.6 g/dL (32-36); Mean Corpuscular Hgb 27.4 pg (27.0-32.0); Mean Corpuscular Volume 89.6 fL (80-94); Mean Platelet Vol. 11.6 fl (6.2-12.0); Monocyte# 1.68 X10^3/uL; Monocyte% 5.1 % (0-10); NRBC Flagged by Analyzer 0.1 % (0-5); Neutrophil % 87.3 % (47-70); POSITIVE COUNT YES; POSITIVE DIFFERENTIAL YES; POSITIVE MORPHOLOGY YES; Platelet Count 422 K/mm3 (150-450); RBC Distribution Width CV 15.6 % (11.6-14.6); RBC Distribution Width SD 51.4 fl (35.1-43.9); Red Blood Count 4.05 M/mm3 (4.6-6.2)
[2023-11-27 07:14] LABS: Anion Gap 6 (5-15); BUN 46 mg/dL (7-18); BUN/Creat Ratio 22.9 RATIO (10-20); Calcium,Total 8.7 mg/dL (8.5-10.1); Chloride 113 mmol/L (98-107); Creatinine, Serum 2.01 mg/dL (0.70-1.30); EST Glomerular Filtration Rate 36 mL/min (>60); Est Glom Filt Rate - Afr Amer 43 mL/min (>60); Estimated Creatinine Clearance 44.57 ml/min; Glucose 176 mg/dL (74-106); Potassium 4.4 mmol/L (3.5-5.1); Sodium Level 142 mmol/L (136-145)
[2023-11-27 07:20] LABS: Differential Indicated SCAN CRITERIA MET; White Blood Count 32.9 K/mm3 (4.4-11.0)
[2023-11-27] MEDS: Albuterol 2.5 MG/3 ML VIAL.NEB. 0.63 MG INHALATION ×3 (07:23→19:04)
[2023-11-27 08:36] LABS: Lymphocyte 4 % (19-41); Monocyte 6 % (0-10); Neutrophil-Band 7 % (0-5); Neutrophil-Segmented 83 % (47-70); Total Cells Counted 100 (MANUAL DIFF)
[2023-11-27 08:38] LABS: Anisocytosis 3+; Burr Cells 2+; Ovalocyte 1+; Platelet Estimate ADEQUATE (ADEQ)
[2023-11-27] MEDS: 0.9% Saline Lock 10 ML Syringe IV (09:14)
[2023-11-27] MEDS: Piperacil/Tazobactam 3.375 GM in 0.9% Normal Saline (50mL MB+) 50 ML IV ×3 (09:14→20:54)
[2023-11-27] MEDS: Vancomycin HCl 2,000 MG in 0.9% Normal Saline (500mL Bag) 500 ML 250 MG IV (10:24)
[2023-11-27 12:08] LABS: Bedside Glucose 180 mg/dL (74-106)
--- NOTE | 2023-11-27 12:16 | PN_ITS ---
Subjective Subjective Patient seen and examined. He was still lethargic but able to open his eyes in response to voice. He couldnt really answer questions and would only mumble in response. Unable to do review of systems. Objective Data Objective Data Vital Signs: Vital Signs Temp Pulse Resp BP Pulse Ox O2 Del Method O2 Flow Rate 97.5 F L 80 16 126/65 H 94 Nasal Cannula 4 11/27/23 10:37 11/27/23 10:37 11/27/23 10:37 11/27/23 10:37 11/27/23 10:37 11/27/23 10:37 11/27/23 10:37 Oxygen Flow Rate (L/min) 4 Oxygen Delivery Method Nasal Cannula Weight: 232 lb 9.403 oz Body Mass Index (BMI) 33.3 Intake & Output: Intake and Output for Last 24 Hours 11/25/23 11/26/23 11/27/23 23:59 23:59 23:59 Intake Total 2052 / 2052 1653.5 / 1653.5 162 / 162 Output Total 200 / 200 Balance 1852 / 1852 1653.5 / 1653.5 162 / 162 Lab / Micro Data 11/27/23 06:20 11/27/23 06:20 Labs: Laboratory Results - last 24 hr 11/26/23 11:36: POC Glucose 179 H 11/26/23 13:31: Troponin I High Sens 265 H* 11/26/23 16:41: POC Glucose 172 H 11/26/23 21:56: POC Glucose 130 H 11/27/23 06:20: WBC 32.9 H*, RBC 4.05 L, Hgb 11.1 L, Hct 36.3 L, MCV 89.6, MCH 27.4, MCHC 30.6 L, RDW Std Deviation 51.4 H, RDW Coeff of Saman 15.6 H, Plt Count 422, MPV 11.6, Immature Gran % (Auto) 5.000 H, Neut % (Auto) 87.3 H, Lymph % (Auto) 2.2 L, [place] % (Auto) 5.1, Eos % (Auto) 0.1, Baso % (Auto) 0.3, Absolute Neuts (auto) 28.7 H, Absolute Lymphs (auto) 0.71 L, Total Counted 100, Neutrophils % (Manual) 83 H, Band Neutrophils % 7 H, Lymphocytes % (Manual) 4 L, Monocytes % (Manual) 6, Nucleated RBC % 0.1, Diff Path Review May foll, Platelet Estimate ADEQUATE, Anisocytosis 3+, Ovalocytes 1+, Radha Cells 2+, Sodium 142, Potassium 4.4, Chloride 113 H, Carbon Dioxide 23.0, Anion Gap 6, BUN 46 H, Cre atinine 2.01 H, Estim Creat Clear Calc 44.57, Est GFR (MDRD) Af Amer 43 L, Est GFR (MDRD) Non-Af 36 L, BUN/Creatinine Ratio 22.9 H, Glucose 176 H, Calcium 8.7 11/27/23 06:31: POC Glucose 172 H 11/27/23 11:46: POC Glucose 180 H Micro: Microbiology 11/25/23 11:45 Urine, Catheterized Urine Culture - Final Culture exhibits no growth. 11/25/23 10:38 Blood Culture (Wb) - Anticubital Left Blood Culture - Pr eliminary Staphylococcus aureus 11/26/23 11:26 Stool Clostridioides difficile (PCR) - Final 11/25/23 11:40 Mucosa - Nose SARS-CoV-2, Influenza & RSV (PCR) - Final Physical Exam Const Constitutional Narrative: lethargic, restless Orientation / Consciousness: lethargic HEENT normocephalic, head/scalp atraumatic, moist oral mucous membranes and oropharynx normal Eyes PERRL and EOMs intact bilaterally Neck no lymphadenopathy and supple Lymph Lymphatic: no lymphadenopathy noted, no lymphedema noted and lymphedema Resp Resp Narrative: diminished breath sounds bilaterally, coarse crackles in all lung bailey. On 4L of oxygen. Cardio regular rate, regular rhythm, S1 normal heart sound, S2 normal heart sound and no murmurs GI normal to inspection, nondistended, normoactive bowel sounds, soft to palpation, non-tender and non-distended Extremity normal capillary refill, no clubbing, cyanosis or edema and no calf tenderness General Extremity: no tenderness to palpation of joints or extremities Skin General Skin Exam: no breakdown Neuro Neuro Narrative: Patient lethargic, moves all extremities. Motor Exam: general weakness Psych Psych Narrative: restless Assessment & Plan Assessment/Plan (1) Sepsis: (2) Pneumonia: PLAN: Plan #Sepsis due to left sided bacterial pneumonia * wbc is up to 32.9 today. * will broaden antibiotics to IV vancomycin and IV zosyn. * There is concern for aspiration. * Sputum culture and blood cultures pending. * Breathing treatments bronchodilators. Titrate oxygen to maintain saturation above 90%. * will get infectious disease consult. * #CAD: * Has a history of non-STEMI. He did have a cath in the past because his caregiver refused this. * Lasix and losartan held on admission due to low blood pressure. * On Lipitor * #CKD stage III: Creatinine is 2.01 today. Baseline creatinine is around 2. Will monitor. #Hypertension: On metoprolol and Norvasc. #Type 2 diabetes mellitus: Jardiance and metformin on hold. On lantus. Insulin sliding scale. Accuchecks ACHS #Paranoid schizophrenia: depakote and haldol #Hypothyroidism: On Synthroid #Iron deficiency anemia:on oral iron supplementation DVT prophylaxis: lovenox, renally dosed. Charges/Coding Visit Charges Inpatient E&M: [address] [facility] Hosp L3
--- NOTE | 2023-11-27 12:18 | PCM.RX.CS ---
Consult Antibiotic Management Pharmacy has been consulted to manage selected antibiotic: Vancomycin Type of Intervention Type of Consult: New start Suspected Infection Suspected Infection: Pneumonia Prior Doses of Antibiotics Prior Doses of Antibiotics Received/Current Regimen: Received 2000mg iv x 1 as loading dose on 11.27.23 @1024. Labs Labs: Sodium 142 mmol/L (136-145) 11/27/23 06:20 Potassium 4.4 mmol/L (3.5-5.1) 11/27/23 06:20 Chloride 113 mmol/L (98-107) H 11/27/23 06:20 Carbon Dioxide 23.0 mmol/L (21.0-32.0) 11/27/23 06:20 Anion Gap 6 (5-15) 11/27/23 06:20 BUN 46 mg/dL (7-18) H 11/27/23 06:20 Creatinine 2.01 mg/dL (0.70-1.30) H 11/27/23 06:20 Est GFR (MDRD) Af Amer 43 mL/min (>60) L 11/27/23 06:20 Est GFR (MDRD) Non-Af 36 mL/min (>60) L 11/27/23 06:20 BUN/Creatinine Ratio 22.9 RATIO (10-20) H 11/27/23 06:20 Glucose 176 mg/dL (74-106) H 11/27/23 06:20 Microbiology Microbiology: Microbiology 11/25/23 11:45 Urine, Catheterized Urine Culture - Final Culture exhibits no growth. 11/25/23 10:38 Blood Culture (Wb) - Anticubital Left Blood Culture - Preliminary Staphylococcus aureus 11/26/23 11:26 Stool Clostridioides difficile (PCR) - Final 11/25/23 11:40 Mucosa - Nose SARS-CoV-2, Influenza & RSV (PCR) - Final Dosing Weight Weight used for dosin.5 kg Estimated Creatinine Clearance Estimated Creatinine Clearance: 45 ml/min Goal Trough Goal Trough: 15-20 mcg/mL Pharmacy Plan for Drug Dosing Pharmacy Plan for Drug Dosing: Renal CrCl ~45ml/min using adjusted body weight of 85.8kg. Recommend a starting dose of 750mg iv q12h with trough level tomorrow before 4th total dose. Pharmacy Service will continue to monitor and adjust dosing as required. Follow-Up Labs Follow-Up Labs: Trough: Vancomycin (11.28.23 @2130)
[2023-11-27] MEDS: Heparin Injection (Vial) 5,000 UNIT/ML VIAL 5000 UNIT SC ×2 (13:33→21:08)
[2023-11-27] MEDS: Insulin Lispro 100 UNIT/ML INSULN.PEN SC (16:41)
[2023-11-27 17:04] LABS: Bedside Glucose 228 mg/dL (74-106)
[2023-11-27] MEDS: MEDROXYPROGESTERONE ACETATE 10 MG TABLET PO (20:41)
[2023-11-27] MEDS: Metoprolol Tartrate 100 MG Tablet PO (20:48)
[2023-11-27] MEDS: traZODone 100 MG Tablet PO (20:48)
[2023-11-27] MEDS: Atorvastatin Calcium 80 MG Tablet PO (20:48)
[2023-11-27] MEDS: Divalproex Sodium 250 MG Tablet 500 MG PO (20:49)
[2023-11-27] MEDS: Divalproex Sodium 250 MG Tablet PO (20:49)
[2023-11-27 21:22] LABS: Bedside Glucose 223 mg/dL (74-106)
[2023-11-27] MEDS: Vancomycin HCl 750 MG in 0.9% Normal Saline (250mL Bag) 250 ML 250 MG IV (21:23)
[2023-11-28] VITALS (18 sets, daily range): BP systolic 100–139; BP diastolic 51–93; PULSE 58–108; RESP 14–30; TEMP 35.8–36.6; O2SAT 90–99
[2023-11-28] MEDS: Haloperidol 1 MG Tablet 2 MG PO ×2 (00:53→05:30)
[2023-11-28] MEDS: Piperacil/Tazobactam 3.375 GM in 0.9% Normal Saline (50mL MB+) 50 ML IV (05:16)
[2023-11-28] MEDS: Levothyroxine 50 MCG Tablet PO (05:31)
[2023-11-28 06:28] LABS: Absolute Lymphocyte Count 0.47 X10^3/uL (0.83-4.51); Absolute Neutrophil Count 25.9 X10^3/uL (2.0-7.7); Basophil# 0.07 X10^3/uL; Basophil% 0.2 % (0-1); Eosinophil# 0.07 X10^3/uL; Eosinophils% 0.2 % (0-5); Hematocrit 34.8 % (40-54); Hemoglobin 10.8 g/dL (13.0-16.5); Lymphocyte # 0.47 X10^3/ul (0.83-4.51); Lymphocyte % 1.7 % (19-41); Mean Corpuscular Hgb 27.3 pg (27.0-32.0); Mean Corpuscular Volume 88.1 fL (80-94); Mean Platelet Vol. 11.2 fl (6.2-12.0); Monocyte# 1.24 X10^3/uL; Monocyte% 4.4 % (0-10); NRBC Flagged by Analyzer 0.2 % (0-5); Neutrophil # 25.92 X10^3/uL (2.7-7.7); Neutrophil % 91.4 % (47-70); POSITIVE DIFFERENTIAL YES; Platelet Count 412 K/mm3 (150-450); RBC Distribution Width CV 15.7 % (11.6-14.6); RBC Distribution Width SD 50.8 fl (35.1-43.9); Red Blood Count 3.95 M/mm3 (4.6-6.2); White Blood Count 28.4 K/mm3 (4.4-11.0)
[2023-11-28 06:30] LABS: Differential Indicated SCAN CRITERIA MET
[2023-11-28 07:11] LABS: Anion Gap 7 (5-15); BUN 57 mg/dL (7-18); BUN/Creat Ratio 23.8 RATIO (10-20); Calcium,Total 8.5 mg/dL (8.5-10.1); Chloride 115 mmol/L (98-107); Creatinine, Serum 2.39 mg/dL (0.70-1.30); EST Glomerular Filtration Rate 29 mL/min (>60); Est Glom Filt Rate - Afr Amer 35 mL/min (>60); Estimated Creatinine Clearance 37.48 ml/min; Glucose 284 mg/dL (74-106); Potassium 4.5 mmol/L (3.5-5.1); Sodium Level 146 mmol/L (136-145)
[2023-11-28] MEDS: Haloperidol 5 MG Tablet PO (08:29)
[2023-11-28] MEDS: LORazepam 1 MG Tablet PO ×2 (08:29→23:04)
--- NOTE | 2023-11-28 09:10 | CT_ITS ---
STUDY: CT BRAIN WITHOUT CONTRAST REASON FOR EXAM: Male, 63 years old. Possible seizure. Unresponsive. RADIATION DOSAGE (If Supplied By Facility): CTDIvol = ( 44.99 ) mGy, DLP = ( 796.11 ) mGycm TECHNIQUE: Transaxial CT imaging of the brain was performed without administration of intravenous contrast material. Individualized dose optimization techniques were used for this CT. COMPARISON: Comparison is made with prior study dated March 23, 2022. FINDINGS: Normal soft tissue structures. Normal calvarium. There is mild cerebral atrophy with widening of the extra-axial spaces and ventricular dilatation. There are areas of decreased attenuation within the white matter tracts of the supratentorial brain, consistent with microvascular disease changes. Normal basal ganglia and thalami. Normal brainstem. Normal cerebellum. There is no intracranial hemorrhage. There are no findings of an acute ischemic infarction. Atherosclerotic plaque formation of the vertebral arteries and cavernous portions of the internal carotid arteries bilaterally. Normal visualized paranasal sinuses. CT/Brain/Head without Contrast IMPRESSION: Chronic involutional changes of the brain. Electronically Signed: Prakash Flowers MD at 9:47 EDT ,
[2023-11-28 09:11] LABS: Bedside Glucose 278 mg/dL (74-106)
[2023-11-28 09:24] LABS: Differential Comment SCANNED
[2023-11-28] MEDS: Vancomycin HCl 750 MG in 0.9% Normal Saline (250mL Bag) 250 ML 250 MG IV (09:53)
--- NOTE | 2023-11-28 10:05 | NURSING ---
At aprox. 0915 pt had a suspected seizure. during routine med administration pt became unresponsive and eyes rolled back in his head. LIBRARY ATTENDANT called and MD to beside. explained events that occurred. orders placed, see chart. tele neuro consult placed and pt went for CT scan of brain. sitting in room
--- NOTE | 2023-11-28 10:45 | CASEMGMT ---
Discharge Planning Updates faxed to [facility] ELIZA Lau. Cassidy Galeano, Discharge Planning Asst.
[2023-11-28] MEDS: levETIRAcetam IV 2,000 MG in 0.9% Normal Saline (250mL Bag) 230 ML 1000 MG IV (11:03)
--- NOTE | 2023-11-28 11:23 | PCM.PROGNOTE ---
Subjective Subjective Patient seen and examined. He was more alert but still confused. He was subsequently noted to become briefly unresponsive, with his eyes rolling back into his head. He also had tonic-clonic movements concerning for seizures. Rapid response was called. By the time I got that the seizure motion has had stopped. He was however lethargic and weak. Patient given a dose of IV Keppra 1000 mg x [address] of the brain and EEG ordered. Objective Data Objective Data Vital Signs: Vital Signs Temp Pulse Resp BP Pulse Ox O2 Del Method O2 Flow Rate 96.5 F L 108 H 26 H 117/68 95 Nasal Cannula 2 11/28/23 09:55 11/28/23 09:55 11/28/23 09:55 11/28/23 09:55 11/28/23 09:55 11/28/23 09:55 11/28/23 09:55 Oxygen Flow Rate (L/min) 2 Oxygen Delivery Method Nasal Cannula Weight: 232 lb 9.403 oz Body Mass Index (BMI) 33.3 Intake & Output: Intake and Output for Last 24 Hours 11/26/23 11/27/23 11/28/23 23:59 23:59 23:59 Intake Total 1653.5 / 1653.5 756.38 / 756.38 625.62 / 625.62 Output Total Balance 1653.5 / 1653.5 755.38 / 755.38 625.62 / 625.62 Lab / Micro Data 11/28/23 06:00 11/28/23 06:00 Labs: Laboratory Results - last 24 hr 11/27/23 11:46: POC Glucose 180 H 11/27/23 16:38: POC Glucose 228 H 11/27/23 21:03: POC Glucose 223 H 11/28/23 06:00: WBC 28.4 H, RBC 3.95 L, Hgb 10.8 L, Hct 34.8 L, MCV 88.1, MCH 27.3, MCHC 31.0 L, RDW Std Deviation 50.8 H, RDW Coeff of Saman 15.7 H, Plt Count 412, MPV 11.2, Immature Gran % (Auto) 2.100 H, Neut % (Auto) 91.4 H, Lymph % (Auto) 1.7 L, [place] % (Auto) 4.4, Eos % (Auto) 0.2, Baso % (Auto) 0.2, Absolute Neuts (auto) 25.9 H, Absolute Lymphs (auto) 0.47 L, Nucleated RBC % 0.2, Differential Comment SCANNED, Sodium 146 H, Potassium 4.5, Chloride 115 H, Carbon Dioxide 24.0, Anion Gap 7, BUN 57 H, Creatinine 2.39 H, Estim Creat Clear Calc 37.48, Est GFR (MDRD) Af Amer 35 L, Est GFR (MDRD) Non-Af 29 L, BUN/Creatinine Ratio 23.8 H, Glucose 284 H, Calcium 8.5 11/28/23 08:43: POC Glucose 278 H Micro: Microbiology 11/25/23 10:45 Blood Culture (Wb) - Anticubital Right Blood Culture - Preliminary No growth in 48 hours. 11/25/23 10:38 Blood Culture (Wb) - Anticubital Left Blood Culture - Final Meth. resistant Staph. aureus 11/25/23 11:45 Urine, Catheterized Urine Culture - Final Culture exhibits no growth. 11/26/23 11:26 Stool Clostridioides difficile (PCR) - Final 11/25/23 11:40 Mucosa - Nose SARS-CoV-2, Influenza & RSV (PCR) - Final Radiography Diagnostic Testing: Radiology Impression Brain CT 11/28/23 09:10 IMPRESSION: Chronic involutional changes of the brain. Electronically Signed: Prakash Flowers MD at 9:47 EDT Reading Location ID and State: [facility] / [place] , Service support , Physical Exam Const Constitutional Narrative: lethargic, restless HEENT normocephalic, head/scalp atraumatic, moist oral mucous membranes and oropharynx normal Eyes PERRL and EOMs intact bilaterally Neck no lymphadenopathy and supple Lymph Lymphatic: no lymphadenopathy noted, no lymphedema noted and lymphedema Resp Resp Narrative: diminished breath sounds bilaterally, coarse crackles in all lung bailey. On 2L of oxygen. Cardio regular rate, regular rhythm, S1 normal heart sound, S2 normal heart sound and no murmurs GI normal to inspection, nondistended, normoactive bowel sounds, soft to palpation, non-tender and non-distended Extremity normal capillary refill, no clubbing, cyanosis or edema and no calf tenderness General Extremity: no tenderness to palpation of joints or extremities Skin General Skin Exam: no breakdown Neuro Neuro Narrative: Patient lethargic, moves all extremities. Motor Exam: general weakness Psych Psych Narrative: restless, lethargic Assessment & Plan Assessment/Plan (1) Sepsis: (2) Pneumonia: PLAN: Plan #Sepsis due to left sided bacterial pneumonia wbc is down to 28.4 today on IV vancomycin and IV zosyn. There is concern for aspiration. Sputum culture and blood cultures pending. Breathing treatments bronchodilators. Titrate oxygen to maintain saturation above 90%. will get infectious disease consult. blood cultures growing Staph aureus. 2D echo ordered #Seizure Patient seems to have had a seizure episode today. His eyes rolled back in his head and he had tonic-clonic motions which lasted for a few minutes. Patient given a loading dose of Keppra. seizure precautions neurology consulted CT brain showed only chronic involutional changes EEG ordered and pending #CAD: Has a history of non-STEMI. He did not have a cath in the past because his caregiver refused this. Lasix and losartan held on admission due to low blood pressure. troponins wre also elevated will get 2D echo as last echo was in 2021 On Lipitor #CKD stage III: Creatinine is 2.39 today. Baseline creatinine is around 2. Will monitor. #Hypertension: On metoprolol and Norvasc. #Hypernatremia: sodium is 146. Stop IVF and monitor #Type 2 diabetes mellitus: Jardiance and metformin on hold. On lantus. Insulin sliding scale. Accuchecks ACHS #Paranoid schizophrenia: depakote and haldol #Hypothyroidism: On Synthroid #Iron deficiency anemia:on oral iron supplementation DVT prophylaxis: lovenox, renally dosed. Charges/Coding Visit Charges Inpatient E&M: 93595 [facility] Hosp L3
[2023-11-28] MEDS: Heparin Injection (Vial) 5,000 UNIT/ML VIAL 5000 UNIT SC ×2 (11:55→22:20)
[2023-11-28] MEDS: Insulin Lispro 100 UNIT/ML INSULN.PEN 10 UNIT SC (11:57)
[2023-11-28] MEDS: Insulin Lispro 100 UNIT/ML INSULN.PEN SC (11:57)
--- NOTE | 2023-11-28 12:11 | ECHOD_ITS ---
Reason For Study: EMBOLI Procedure This was a 2D Doppler, Color Flow transthoracic echocardiogram. The study was technically difficult. Study unfinished due to patient becoming agitated. Exam performed portable in patient room. Left Ventricle Normal LV size. Left ventricular systolic function is normal. Stage 1 diastolic dysfunction. The left ventricular ejection fraction is 55 %. No regional wall motion abnormalities noted. Right Ventricle Normal RV size. Normal systolic function. Pulmonic Valve The pulmonic valve is not well visualized. Great Vessels Normal aortic root. The pulmonary artery is normal size. Inferior vena cava collapse with respiration. Pericardium/Pleural No pericardial effusion. MMode/2D Measurements & Calculations LVIDd: 3.9 cm IVSd: 1.1 cm LAV(MOD-sp4): 27.9 ml LVIDs: 3.2 cm LVPWd: 1.4 cm FS: 17.9 % LA dimension(2D): 3.3 cm LA A4 area: 13.5 cm2 RA A4 area: 7.9 cm2 Time Measurements MV dec time: 0.32 sec Doppler Measurements & Calculations MV E max micah: 63.9 cm/sec Lat Peak E' Micah: 4.4 cm/sec Med Peak E' Micah: 5.7 cm/sec MV A max micah: 71.8 cm/sec E/E' lat: 14.7 E/E' med: 11.2 MV E/A: 0.89 MV V2 max: 78.7 cm/sec MV dec slope: 200.8 cm/sec2 Ao V2 max: 91.9 cm/sec MV max P.5 mmHg Ao max P.4 mmHg MV V2 mean: 45.0 cm/sec Ao V2 mean: 65.7 cm/sec MV mean P.95 mmHg Ao mean P.9 mmHg MV V2 VTI: 35.2 cm Ao V2 VTI: 19.2 cm AV (velocity ratio): 0.89 LV V1 max: 78.1 cm/sec TR max micah: 224.4 cm/sec LV V1 max P.4 mmHg TR max P.1 mmHg LV V1 mean P.1 mmHg LV V1 mean: 47.1 cm/sec LV V1 VTI: 17.0 cm ECHO/Echo Complete Interpretation Summary Normal LV size. Left ventricular systolic function is normal. Stage 1 diastolic dysfunction. The left ventricular ejection fraction is 55 %. The study was technically limited. Ordering Physician: Kerry Glover Referring Physician: LELAND ROUSSEAU Performed By: Valentina Villar RCS
[2023-11-28 12:18] LABS: Bedside Glucose 298 mg/dL (74-106)
--- NOTE | 2023-11-28 13:54 | CON.PCM.ID_ITS ---
Assessment & Plan Assessment/Plan (1) MRSA bacteremia: PLAN: suspected due to post-flu pneumonia. Will narrow abx to vanc/unasyn. Check TTE and repeat bcx. Will follow, thank you (2) Sepsis: HPI Consult Data Date of Consult: 11/28/23 HPI Narrative Reason for Consultation: bacteremia HPI Narrative: ERICK DIAZ, is a 63 M who presented 11/25/23 from [facility] due to hypoxia, altered mental status. Recent dx of flu. Condition worsened, abx broadened to vanc/zosyn, now with MRSA (+) bcx. Had suspected seizure this AM. Pt unable to provide history or ROS due to mental status. PFSH Medical History Anxiety and depression Atrial fibrillation Chest pain Chronic anemia CKD (chronic kidney disease), stage III Congestive heart failure (CHF) COPD (chronic obstructive pulmonary disease) Diabetes mellitus, type 2 Fe deficiency anemia HLD (hyperlipidemia) HTN (hypertension) Hx of non-ST elevation myocardial infarction (NSTEMI) Hypothyroidism Obesity PVD (peripheral vascular disease) Schizophrenia Smoker Tobacco use Home Medications atorvastatin 80 mg tablet 80 mg PO DAILY arterial disease 07/25/19 [History Last Taken 11/24/23] cholecalciferol (vitamin D3) 50 mcg (2,000 unit) capsule 2,000 unit PO DAILY supplement 07/25/19 [History Last Taken 11/25/23] haloperidol 5 mg tablet 5 mg PO Q6H PRN Agitation 07/25/19 [History Last Taken 11/15/23] levothyroxine 50 mcg tablet 50 mcg PO DAILY hypothyroid 07/25/19 [History Last Taken 11/25/23] lorazepam 1 mg tablet 1 mg PO Q6H PRN Agitation 07/25/19 [History Last Taken 11/15/23] metformin 1,000 mg tablet 1,000 mg PO BID DM 07/25/19 [History Last Taken 11/25/23] trazodone 100 mg tablet 100 mg PO QHS insom 07/25/19 [History Last Taken 11/24/23] albuterol sulfate 0.63 mg/3 mL solution for nebulization 0.63 mg inhalation TID Wheezing 09/23/21 [History Last Taken 11/25/23] losartan 100 mg tablet 100 mg PO DAILY hypertensio 09/23/21 [History Last Taken 11/25/23] aluminum-mag hydroxide-simethicone 400 mg-400 mg-40 mg/5 mL oral susp (Mylanta Maximum Strength) 15 ml PO Q4H PRN heartburn/indigestion 09/24/21 [History Last Taken Unknown] magnesium hydroxide 400 mg/5 mL oral suspension (Milk of Magnesia) 30 ml PO DAILY PRN Constipation 09/24/21 [History Last Taken Unknown] nicotine (polacrilex) 2 mg buccal lozenge 2 mg buccal Q2H PRN smoking alternative 09/24/21 [History Last Taken Unknown] acetaminophen 325 mg tablet (Tylenol) 650 mg PO Q4H PRN fever or pain 11/10/21 [History Last Taken Unknown] ferrous sulfate 325 mg (65 mg iron) tablet 325 mg PO DAILY iron 07/21/22 [History Last Taken 11/25/23] haloperidol 2 mg tablet 2 mg PO TID agitation 07/21/22 [History Last Taken 11/25/23] metoprolol tartrate 100 mg tablet 100 mg PO BID htn 30 days #0 tabs 07/23/22 [Rx Last Taken 11/25/23] divalproex 250 mg tablet,delayed release (Depakote) 250 mg PO BID paranoid schizophrenia 08/11/22 [History Last Taken 11/24/23] furosemide 40 mg tablet (Lasix) 40 mg PO DAILY chf 08/11/22 [History Last Taken 11/24/23] amlodipine 5 mg tablet 5 mg PO DAILY #90 tabs 08/30/22 [Rx Last Taken 11/25/23] divalproex 500 mg tablet,extended release 24 hr (Depakote ER) 500 mg PO BID paranoid schizopreh 07/20/23 [History Last Taken 11/25/23] empagliflozin 25 mg tablet (Jardiance) 25 mg PO DAILY DM 07/20/23 [History Last Taken 11/25/23] insulin lispro 100 unit/mL subcutaneous cartridge 17 unit subcut TID hyperglycemia 07/20/23 [History Last Taken 11/24/23] lorazepam 1 mg tablet 1 mg PO BID anxiety 07/20/23 [History Last Taken 11/25/23] medroxyprogesterone 10 mg tablet (Provera) 10 mg PO BID sexual aggression 07/20/23 [History Last Taken 11/25/23] aspirin 81 mg tablet,delayed release (Adult Aspirin Regimen) 81 mg PO DAILY PVD 11/19/23 [History Last Taken 11/25/23] glucagon HCl 1 mg solution for injection (Glucagon (HCl) Emergency Kit) 1 mg IM Q20M PRN hypoglycemia 11/19/23 [History Last Taken Unknown] nicotine 10 mg inhalation cartridge (Nicotrol) 1 inh inhalation Q2H PRN nicotine cravings 11/19/23 [History Last Taken Unknown] prednisone 20 mg tablet 40 mg (2 x 20 mg) PO DAILY 3 days #6 tabs 11/20/23 [Rx Last Taken 11/24/23] albuterol sulfate 0.63 mg/3 mL solution for nebulization 0.63 mg inhalation Q4H PRN shortness of breath or wheezing 11/25/23 [History Last Taken 11/25/23] insulin glargine 100 unit/mL subcutaneous solution (Lantus U-100 Insulin) 35 unit subcut QHS diabetes 11/25/23 [History Last Taken 11/24/23] oseltamivir 75 mg capsule (Tamiflu) 75 mg PO DAILY 11/25/23 [History Last Taken 11/25/23] Allergy/AdvReac Type Severity Reaction Status Date / Time No Known Allergies Allergy Verified 11/25/23 10:09 Family History Mother No family history of disorders Father No family history of disorders Other Hypertension Surgical History No history of previous surgery No history of previous surgery Social History household members: other details: [facility]. housing: other details: [facility]. Smoking Status: Current every day smoker tobacco type: cigarettes alcohol intake: never substance use type: does not use Physical Exam Const General Appearance: lethargic HEENT normocephalic and head/scalp atraumatic Eyes PERRL Neck supple and No nodes Resp normal air movement and clear to auscultation bilaterally Cardio regular rate and regular rhythm GI soft to palpation, non-tender and non-distended Extremity General Extremity: Negative for edema Skin no rashes or lesions noted Neuro CN's II-XII intact bilaterally Lab / Micro Data Attestation: I reviewed the patient's lab results. 11/28/23 06:00 11/28/23 06:00 Labs: Laboratory Results - last 24 hr 11/27/23 16:38: POC Glucose 228 H 11/27/23 21:03: POC Glucose 223 H 11/28/23 06:00: WBC 28.4 H, RBC 3.95 L, Hgb 10.8 L, Hct 34.8 L, MCV 88.1, MCH 27.3, MCHC 31.0 L, RDW Std Deviation 50.8 H, RDW Coeff of Saman 15.7 H, Plt Count 412, MPV 11.2, Immature Gran % (Auto) 2.100 H, Neut % (Auto) 91.4 H, Lymph % (Auto) 1.7 L, [place] % (Auto) 4.4, Eos % (Auto) 0.2, Baso % (Auto) 0.2, Absolute Neuts (auto) 25.9 H, Absolute Lymphs (auto) 0.47 L, Nucleated RBC % 0.2, Differential Comment SCANNED, Sodium 146 H, Potassium 4.5, Chloride 115 H, Carbon Dioxide 24.0, Anion Gap 7, BUN 57 H, Creatinine 2.39 H, Estim Creat Clear Calc 37.48, Est GFR (MDRD) Af Amer 35 L, Est GFR (MDRD) Non-Af 29 L, BUN/Creatinine Ratio 23.8 H, Glucose 284 H, Calcium 8.5 11/28/23 08:43: POC Glucose 278 H 11/28/23 11:53: POC Glucose 298 H Micro: Microbiology 11/25/23 10:45 Blood Culture (Wb) - Anticubital Right Blood Culture - Preliminary No growth in 48 hours. 11/25/23 10:38 Blood Culture (Wb) - Anticubital Left Blood Culture - Final Meth. resistant Staph. aureus Imaging Radiology Impression Brain CT 11/28/23 09:10 IMPRESSION: Chronic involutional changes of the brain. Electronically Signed: Prakash Flowers MD at 9:47 EDT ,
[2023-11-28] MEDS: Ampicillin/Sulbactam 3 GM in 0.9% Normal Saline (100mL MB+) 100 ML IV ×2 (14:11→22:19)
--- NOTE | 2023-11-28 15:40 | EKG12_ITS ---
Test Reason : Blood Pressure : / mmHG Vent. Rate : 063 BPM Atrial Rate : 063 BPM P-R Int : 124 ms QRS Dur : 094 ms QT Int : 438 ms P-R-T Axes : 059 071 077 degrees QTc Int : 448 ms Sinus rhythm with marked sinus arrhythmia Otherwise normal ECG Confirmed by ZANDER JADE, CATARINA ([id number]), book or script editor MERRY BLANCO ([id number]) on 11/29/2023 10:51:19 AM Referred By: YOSEPH Confirmed By:CATARINA FERMIN MD
--- NOTE | 2023-11-28 16:03 | MRI_ITS ---
STUDY: MRI BRAIN WITHOUT CONTRAST REASON FOR EXAM: Male, 63 years old. encephalopathy, LETHARGIC, NOT FOLLOWING COMMANDS TECHNIQUE: Standardized multiplanar fat and water weighted pulse sequences were obtained. COMPARISON: CT of the brain November 28, 2019 FINDINGS: Mild atrophy and periventricular white matter ischemic change without mass effect or restricted diffusion. Tiny old lacunar infarct in left basal ganglia.. Normal thalami. There is no extra-axial fluid accumulation. Normal flow voids within the major intracranial circulation suggesting patency by spin echo criteria. Normal sella turcica, pituitary gland, infundibular stalk, optic chiasm and hypothalamus. Normal tectal plate and pineal gland. Normal midbrain, sherlyn and medulla. Diffuse cerebellar atrophy. Normal basal cisterns. Normal bilateral temporal bones. Normal bilateral internal auditory canals. No demonstrated orbital abnormality, within the constraints of a routine brain study. Normal visualized paranasal sinuses. Normal calvarium and skull base. Normal visualized soft tissue structures. Normal visualized upper cervical spine. MRI/Brain without Contrast IMPRESSION: Mild atrophy and periventricular white matter ischemic change without evidence for acute infarct. Tiny old lacunar infarct in left basal ganglia. Electronically Signed: Familia Landin MD at 19:19 EDT ,
[2023-11-28 16:35] LABS: Bedside Glucose 180 mg/dL (74-106)
--- NOTE | 2023-11-28 17:15 | CON.PCM.NE_ITS ---
Assessment and Plan: Neuro Assessment/Plan ERICK DIAZ, is a 63 M with schizophrenia, who presented from [facility] to the hospital 11/24 his skilled facility due to shortness of breath and hypoxia found to have pneumonia found to have PNA and MRSA Bacteremia. He has had worsening mental status while in the hospital thus we were consulted. He also had a seizure like activity of staring off and body stiffening for few s econds in the setting of a coughing episode while being suctioned. S/p Keppra load. rEEG with no epileptic activity Diagnosis: Toxic metabolic encephalopathy Seizure like activity Plan: - MRI brain - No further Keppra - Treatment of underlying infection per primary team. I personally attended this patient and spent a total time of 60 minutes evaluating this patient including clinical assessment, review of chart, medical history imaging, and determining appropriate treatment and workup. HPI Consult Data Date of Consult: 11/28/23 HPI Narrative Reason for Consultation: Altered mental status, seizure like activity HPI Narrative: ERICK DIAZ is a 63 M with schizophrenia, who presented from [facility] to the hospital 11/24 his skilled facility due to shortness of breath and hypoxia found to have pneumonia found to have PNA and MRSA Bacteremia. He has had worsening mental status while in the hospital thus we were consulted. At baseline he is oriented to self only. Per the nurse, he was doing fine this morning, communicating with the staff. He then had a coughing episode, they were trying to suction him, he then stared off for a bit and laid back down, body was slightly stiff and he wasn?t reponsive, this lasted for few seconds, then after whcih he started talking again. He rec eived Keppra load of 2 grams. PFSH Medical History Anxiety and depression Atrial fibrillation Chest pain Chronic anemia CKD (chronic kidney disease), stage III Congestive heart failure (CHF) COPD (chronic obstructive pulmonary disease) Diabetes mellitus, type 2 Fe deficiency anemia HLD (hyperlipidemia) HTN (hypertension) Hx of non-ST elevation myocardial infarction (NSTEMI) Hypothyroidism Obesity PVD (peripheral vascular disease) Schizophrenia Smoker Tobacco use Home Medications atorvastatin 80 mg tablet 80 mg PO DAILY arterial disease 07/25/19 [History Last Taken 11/24/23] cholecalciferol (vitamin D3) 50 mcg (2,000 unit) capsule 2,000 unit PO DAILY supplement 07/25/19 [History Last Taken 11/25/23] haloperidol 5 mg tablet 5 mg PO Q6H PRN Agitation 07/25/19 [History Last Taken 11/15/23] levothyroxine 50 mcg tablet 50 mcg PO DAILY hypothyroid 07/25/19 [History Last Taken 11/25/23] lorazepam 1 mg tablet 1 mg PO Q6H PRN Agitation 07/25/19 [History Last Taken 11/15/23] metformin 1,000 mg tablet 1,000 mg PO BID DM 07/25/19 [History Last Taken 11/25/23] trazodone 100 mg tablet 100 mg PO QHS insom 07/25/19 [History Last Taken 11/24/23] albuterol sulfate 0.63 mg/3 mL solution for nebulization 0.63 mg inhalation TID Wheezing 09/23/21 [History Last Taken 11/25/23] losartan 100 mg tablet 100 mg PO DAILY hypertensio 09/23/21 [History Last Taken 11/25/23] aluminum-mag hydroxide-simethicone 400 mg-400 mg-40 mg/5 mL oral susp (Mylanta Maximum Strength) 15 ml PO Q4H PRN heartburn/indigestion 09/24/21 [History Last Taken Unknown] magnesium hydroxide 400 mg/5 mL oral suspension (Milk of Magnesia) 30 ml PO DAILY PRN Constipation 09/24/21 [History Last Taken Unknown] nicotine (polacrilex) 2 mg buccal lozenge 2 mg buccal Q2H PRN smoking alternative 09/24/21 [History Last Taken Unknown] acetaminophen 325 mg tablet (Tylenol) 650 mg PO Q4H PRN fever or pain 11/10/21 [History Last Taken Unknown] ferrous sulfate 325 mg (65 mg iron) tablet 325 mg PO DAILY iron 07/21/22 [History Last Taken 11/25/23] haloperidol 2 mg tablet 2 mg PO TID agitation 07/21/22 [History Last Taken 11/25/23] metoprolol tartrate 100 mg tablet 100 mg PO BID htn 30 days #0 tabs 07/23/22 [Rx Last Taken 11/25/23] divalproex 250 mg tablet,delayed release (Depakote) 250 mg PO BID paranoid schizophrenia 08/11/22 [History Last Taken 11/24/23] furosemide 40 mg tablet (Lasix) 40 mg PO DAILY chf 08/11/22 [History Last Taken 11/24/23] amlodipine 5 mg tablet 5 mg PO DAILY #90 tabs 08/30/22 [Rx Last Taken 11/25/23] divalproex 500 mg tablet,extended release 24 hr (Depakote ER) 500 mg PO BID paranoid schizopreh 07/20/23 [History Last Taken 11/25/23] empagliflozin 25 mg tablet (Jardiance) 25 mg PO DAILY DM 07/20/23 [History Last Taken 11/25/23] insulin lispro 100 unit/mL subcutaneous cartridge 17 unit subcut TID hyperglycemia 07/20/23 [History Last Taken 11/24/23] lorazepam 1 mg tablet 1 mg PO BID anxiety 07/20/23 [History Last Taken 11/25/23] medroxyprogesterone 10 mg tablet (Provera) 10 mg PO BID sexual aggression [History Last Taken 11/25/23] aspirin 81 mg tablet,delayed release (Adult Aspirin Regimen) 81 mg PO DAILY PVD 11/19/23 [History Last Taken 11/25/23] glucagon HCl 1 mg solution for injection (Glucagon (HCl) Emergency Kit) 1 mg IM Q20M PRN hypoglycemia 11/19/23 [History Last Taken Unknown] nicotine 10 mg inhalation cartridge (Nicotrol) 1 inh inhalation Q2H PRN nicotine cravings 11/19/23 [History Last Taken Unknown] prednisone 20 mg tablet 40 mg (2 x 20 mg) PO DAILY 3 days #6 tabs 11/20/23 [Rx L ast Taken 11/24/23] albuterol sulfate 0.63 mg/3 mL solution for nebulization 0.63 mg inhalation Q4H PRN shortness of breath or wheezing 11/25/23 [History Last Taken 11/25/23] insulin glargine 100 unit/mL subcutaneous solution (Lantus U-100 Insulin) 35 unit subcut QHS diabetes 11/25/23 [History Last Taken 11/24/23] oseltamivir 75 mg capsule (Tamiflu) 75 mg PO DAILY 11/25/23 [History Last Taken 11/25/23] Allergy/AdvReac Type Severity Reaction Status Date / Time No Known Allergies Allergy Verified 11/25/23 10:09 Family History Mother No family history of disorders Father No family history of disorders Other Hypertension Surgical History No history of previous surgery No history of previous surgery Social History household members: other details: [facility]. housing: other details: [facility]. Smoking Status: Current every day smoker tobacco type: cigarettes alcohol intake: never substance use type: does not use Vital Signs Vital Signs Vital Signs: 11/27/23 19:05 11/27/23 19:07 11/27/23 20:48 Temperature Temperature Source Pulse Rate 74 81 Pulse Strength Respiratory Rate 20 H Respiratory Effort Respiratory Depth Respiratory Pattern Normal Blood Pressure Blood Pressure Mean Blood Pressure Source Blood Pressure Position Blood Pressure Location Pulse Ox 93 Oxygen Delivery Method Nasal Cannula Oxygen Flow Rate (L/min) 4 11/27/23 22:00 11/27/23 20:30 11/28/23 00:00 Temperature 97.5 F L 97.5 F L Temperature Source Axillary Axillary Pulse Rate 81 81 Pulse Strength Respiratory Rate 18 18 Respiratory Effort Normal Non-Labored Respiratory Depth Normal Respiratory Pattern Normal Blood Pressure 135/67 H 135/67 H Blood Pressure Mean 89 89 Blood Pressure Source Monitor Blood Pressure Position Semi-Fowlers Blood Pressure Location Right Arm Pulse Ox 95 95 Oxygen Delivery Method Nasal Cannula Nasal Cannula Nasal Cannula Oxygen Flow Rate (L/min) 4 4 4 11/28/23 03:50 11/28/23 03:50 11/28/23 08:36 Temperature 97.8 F 97.8 F 96.5 F L Temperature Source Axillary Oral Temporal Pulse Rate 73 73 79 Pulse Strength Respiratory Rate 18 18 16 Respiratory Effort Respiratory Depth Respiratory Pattern Blood Pressure 129/83 H 129/83 H 134/72 H Blood Pressure Mean 98 98 92 Blood Pressure Source Monitor Monitor Blood Pressure Position Semi-Fowlers Semi-Fowlers Blood Pressure Location Right Arm Left Arm Pulse Ox 98 98 91 Oxygen Delivery Method Nasal Cannula Nasal Cannula Room Air Oxygen Flow Rate (L/min) 4 4 11/28/23 08:38 11/28/23 09:55 11/28/23 09:15 Temperature 96.5 F L 96.5 F L Temperature Source Temporal Temporal Pulse Rate 79 108 H Pulse Strength Weak (1+) Respiratory Rate 14 26 H Respiratory Effort Respiratory Depth Respiratory Pattern Blood Pressure 139/72 H 117/68 Blood Pressure Mean 94 84 Blood Pressure Source Monitor Blood Pressure Position Semi-Fowlers Blood Pressure Location Left Arm Pulse Ox 94 95 Oxygen Delivery Method Nasal Cannula Nasal Cannula Oxygen Flow Rate (L/min) 2 2 11/28/23 09:15 11/28/23 12:00 11/28/23 10:40 Temperature 96.8 F L 96.8 F L Temperature Source Temporal Oral Pulse Rate 68 105 H Pulse Strength Respiratory Rate 23 H 16 Respiratory Effort Normal Respiratory Depth Respiratory Pattern Normal Blood Pressure 117/51 L 115/61 Blood Pressure Mean 73 79 Blood Pressure Source Manual Blood Pressure Position Supine Blood Pressure Location Right Arm Pulse Ox 98 95 Oxygen Delivery Method Nasal Cannula Nasal Cannula Nasal Cannula Oxygen Flow Rate (L/min) 4 2 2 11/28/23 13:00 11/28/23 15:00 11/28/23 14:00 Temperature 96.8 F L 97.1 F L Temperature Source Oral Axillary Pulse Rate 65 66 Pulse Strength Respiratory Rate 22 H 23 H Respiratory Effort Accessory Muscle Use Respiratory Depth Shallow Respiratory Pattern Apnea Blood Pressure 120/61 100/61 Blood Pressure Mean 80 74 Blood Pressure Source Monitor Monitor Blood Pressure Position Supine Supine Blood Pressure Location Right Arm Right Arm Pulse Ox 99 98 Oxygen Delivery Method Nasal Cannula Nasal Cannula Nasal Cannula Oxygen Flow Rate (L/min) 2 2 2 11/28/23 16:17 Temperature Temperature Source Pulse Rate Pulse Strength Respiratory Rate Respiratory Effort Respiratory Depth Respiratory Pattern Blood Pressure Blood Pressure Mean Blood Pressure Source Blood Pressure Position Blood Pressure Location Pulse Ox 96 Oxygen Delivery Method Nasal Cannula Oxygen Flow Rate (L/min) 2 Weight Weight: 105.5 kg Body Mass Index (BMI) 33.3 EEG Results Procedure Details EEG Procedure Details: Inpatient routine EEG report performed at [facility] Study start time: 11/28/23 1053 am End Time: 11/28/23 1131 am History: Patient admitted with PNA. Had seizure like activity Indication: Rule out seizures Technical Description: This is a 18-channel digital EEG recording with time- locked video and single-channel electrocardiogram. Electrodes are placed according to the 10 to 20 International System. The patient was monitored continuously by EEG technicians and EEG recording was reviewed intermittently with annotations to the EEG record. Portions of this record are reviewed using bandpass filters of 1 to 70 Hz and sensitivity of 7mV/mm. EEG DESCRIPTION Background: This recording was obtained during awake and sleep state. In the m aximally alert state, a posterior dominant rhythm was a symmetric, reactive, well-modulated 8 Hz with a normal frequency-amplitude gradient. There was also an underlying mild generalized slowing seen in the awake state. During drowsiness, there was attenuation of the waking background. Stage II sleep architecture was normal in morphology and distribution. Activation Procedures: Photic stimulation was performed. No epileptic or abnormal activity was triggered by this procedure. Sporadic Epileptiform Discharges: none Focal slow activity: none Rhythmic or Periodic activity: none Seizures: none Patient Events: none EEG DIAGNOSIS: Abnormal, encephalopathy CLINICAL INTERPRETATION This abnormal awake and sleep routine EEG is consistent with mild encephalopathy. No epileptiform discharges or lateralizing signs were seen. Physical Exam Narrative Exam limited due to patient being drowsy with minimal interaction after receiving Keppra load Drowsy, face symmetric Pupils symmetric reactive Doesn't follow commands Moving all ext antigravity with no focal findings Withdrew to nox stim in all extremities Lab / Micro Data 11/28/23 06:00 11/28/23 06:00 Labs: Laboratory Results - last 24 hr 11/27/23 21:03: POC Glucose 223 H 11/28/23 06:00: WBC 28.4 H, RBC 3.95 L, Hgb 10.8 L, Hct 34.8 L, MCV 88.1, MCH 27.3, MCHC 31.0 L, RDW Std Deviation 50.8 H, RDW Coeff of Saman 15.7 H, Plt Count 412, MPV 11.2, Immature Gran % (Auto) 2.100 H, Neut % (Auto) 91.4 H, Lymph % (Auto) 1.7 L, [place] % (Auto) 4.4, Eos % (Auto) 0.2, Baso % (Auto) 0.2, Absolute Neuts (auto) 25.9 H, Absolute Lymphs (auto) 0.47 L, Nucleated RBC % 0.2, Differential Comment SCANNED, Sodium 146 H, Potassium 4.5, Chloride 115 H, Carbon Dioxide 24.0, Anion Gap 7, BUN 57 H, Creatinine 2.39 H, Estim Creat Clear Calc 37.48, Est GFR (MDRD) Af Amer 35 L, Est GFR (MDRD) Non-Af 29 L, BUN/Creatinine Ratio 23.8 H, Glucose 284 H, Calcium 8.5 11/28/23 08:43: POC Glucose 278 H 11/28/23 11:53: POC Glucose 298 H 11/28/23 16:14: POC Glucose 180 H Micro: Microbiology 11/25/23 10:45 Blood Culture (Wb) - Anticubital Right Blood Culture - Preliminary No growth in 48 hours. 11/25/23 10:38 Blood Culture (Wb) - Anticubital Left Blood Culture - Final Meth. resistant Staph. aureus Imaging Radiology Impression Brain CT 11/28/23 09:10 IMPRESSION: Chronic involutional changes of the brain. Electronically Signed: Prakash Flowers MD at 9:47 EDT , Echocardiogram 11/28/23 12:11 Interpretation Summary Normal LV size. Left ventricular systolic function is normal. Stage 1 diastolic dysfunction. The left ventricular ejection fraction is 55 %. The study was technically limited. Ordering Physician: Kerry Glover Referring Physician: LELAND ROUSSEAU Performed By: Valentina Villar RCS Active Medications Active Medications Active Medications: Current Medications Generic Name Dose Route Start Last Admin Trade Name Freq PRN Reason Stop Dose Admin Acetaminophen 650 mg 11/25/23 15:29 Acetaminophen 325 Mg Tablet PO Q4H PRN fever or pain -06/21 Albuterol Sulfate 0.63 mg 11/25/23 22:00 11/27/23 19:04 Albuterol 2.5 Mg/3 Ml Vial.Neb. INHALATION 0.63 mg TID.RT WILLIAM Administration Albuterol Sulfate 0.63 mg 11/25/23 16:18 Albuterol 2.5 Mg/3 Ml Vial.Neb. INHALATION Q4H PRN shortness of breath or wheezing Amlodipine Besylate 5 mg 11/26/23 10:00 11/28/23 10:03 Amlodipine 5 Mg Tablet PO Not Given DAILY [facility] Protocol Aspirin 81 mg 11/26/23 08:00 11/28/23 10:02 Aspirin E.C. 81 Mg [facility] Atorvastatin Calcium 80 mg 11/25/23 22:00 11/27/23 20:48 Atorvastatin Calcium 80 Mg Tablet PO 80 mg QHS WILLIAM Administration Dextrose 0 gm 11/25/23 15:29 Dextrose 50%-Water 25 Gm/50 Ml Disp.Syrin IV X1 PRN HYPOGLYCEMIA Protocol Divalproex Sodium 250 mg 11/25/23 22:00 11/27/23 20:49 Divalproex Sodium 250 Mg Tablet PO 250 mg QHS [facility] Administration Divalproex Sodium 500 mg 11/25/23 22:00 11/28/23 10:02 Divalproex Sodium 250 Mg Tablet PO Not Given BID [facility] Ferrous Sulfate 325 mg 11/26/23 12:00 11/28/23 10:03 Ferrous Sulfate 325 Mg Tablet PO Not Given LUNCH [facility] Glucagon 1 mg 11/25/23 15:29 Glucagon 1 Mg/Ml Syringe IM X1 PRN HYPOGLYCEMIA Haloperidol 5 mg 11/25/23 15:29 11/28/23 08:29 Haloperidol 5 Mg Tablet PO 5 mg Q6H PRN Administration AGITATION Protocol Haloperidol 2 mg 11/25/23 22:00 11/28/23 14:59 Haloperidol 1 Mg Tablet PO Not Given TID [facility] Heparin Sodium (Porcine) 5,000 unit 11/25/23 22:00 11/28/23 11:55 Heparin Injection (Vial) 5,000 Unit/Ml Vial SC 5,000 unit Q12 WILLIAM Administration Sodium Chloride 250 mls @ 15 mls/hr 11/25/23 15:45 IV .[id number] PRN Additional IVPB Infusion Sodium Chloride 250 mls @ 15 mls/hr 11/25/23 15:45 IV .[id number] PRN Saline Flush Vancomycin IV-PHARMACY TO DOSE 500 mls @ 250 mls/hr 11/27/23 07:55 1 each/ Sodium Chloride IV PRN PRN Rx to Dose Protocol Vancomycin HCl 750 mg/ Sodium 265 mls @ 250 mls/hr 11/27/23 22:00 11/28/23 10:57 Chloride IV Infused Q12H WILLIAM Infusion Levetiracetam 500 mg/ Sodium 105 mls @ 400 mls/hr 11/28/23 22:00 Chloride IV Q12 WILLIAM Ampicillin Sodium/Sulbactam 112 mls @ 150 mls/hr 11/28/23 14:00 11/28/23 15:00 Sodium 3 gm/ Sodium Chloride IV Infused Q8 WILLIAM Infusion Insulin Glargine 20 unit 11/25/23 22:00 11/27/23 21:07 Insulin Glargine-Yfgn 100 Unit/Ml Pen SC Not Given QHS WILLIAM Insulin Human Lispro 10 unit 11/25/23 17:00 11/28/23 16:16 Insulin Lispro 100 Unit/Ml Insuln.Pen SC Not Given 0800,1200,1700 [facility] Insulin Human Lispro 0 unit 11/25/23 16:00 11/28/23 16:16 Insulin Lispro 100 Unit/Ml Insuln.Pen SC Not Given ACHS [facility] Protocol Levothyroxine Sodium 50 mcg 11/26/23 06:00 11/28/23 05:31 Levothyroxine 50 Mcg Tablet PO 50 mcg DAILY@0600 [facility] Administration Lorazepam 1 mg 11/25/23 22:00 11/28/23 08:29 Lorazepam 1 Mg Tablet PO 1 mg BID WILLIAM Administration Lorazepam 1 mg 11/25/23 15:29 11/26/23 18:56 Lorazepam 1 Mg Tablet PO 1 mg Q6H PRN Administration AGITATION Medroxyprogesterone Acetate 10 mg 11/25/23 22:00 11/28/23 10:03 Medroxyprogesterone Acetate 10 Mg Tablet PO Not Given BID WILLIAM Metoprolol Tartrate 100 mg 11/25/23 22:00 11/28/23 10:03 Metoprolol Tartrate 100 Mg Tablet PO Not Given BID [facility] Protocol Sodium Chloride 10 - 40 ml 11/25/23 15:45 11/27/23 09:14 0.9% Saline Lock 10 Ml Syringe IV 10 ml UD PRN Administration SALINE FLUSH Trazodone HCl 100 mg 11/25/23 22:00 11/27/23 20:48 Trazodone 100 Mg Tablet PO 100 mg QHS [facility] Administration Vancomycin Protocol 1 lab 11/28/23 19:30 Vancomycin Trough/Random Due MC 11/28/23 23:30 DAILY [facility]
[2023-11-28] MEDS: LORazepam 2 MG/ML Syringe 1 MG IV (17:23)
[2023-11-28] MEDS: Albuterol 2.5 MG/3 ML VIAL.NEB. 0.63 MG INHALATION (21:02)
[2023-11-28 21:59] LABS: Vancomycin, Trough Level 26.4 ug/mL (5.0-15.0)
--- NOTE | 2023-11-28 22:09 | PCM.RX.CS ---
Consult Antibiotic Management Pharmacy has been consulted to manage selected antibiotic: Vancomycin Type of Intervention Type of Consult: Follow-up Suspected Infection Suspected Infection: Pneumonia Labs Labs: Sodium 146 mmol/L (136-145) H 11/28/23 06:00 Potassium 4.5 mmol/L (3.5-5.1) 11/28/23 06:00 Chloride 115 mmol/L (98-107) H 11/28/23 06:00 Carbon Dioxide 24.0 mmol/L (21.0-32.0) 11/28/23 06:00 Anion Gap 7 (5-15) 11/28/23 06:00 BUN 57 mg/dL (7-18) H 11/28/23 06:00 Creatinine 2.39 mg/dL (0.70-1.30) H 11/28/23 06:00 Est GFR (MDRD) Af Amer 35 mL/min (>60) L 11/28/23 06:00 Est GFR (MDRD) Non-Af 29 mL/min (>60) L 11/28/23 06:00 BUN/Creatinine Ratio 23.8 RATIO (10-20) H 11/28/23 06:00 Glucose 284 mg/dL (74-106) H 11/28/23 06:00 Vancomycin Trough 26.4 ug/mL (5.0-15.0) H 11/28/23 21:02 Microbiology Microbiology: Microbiology 11/25/23 10:45 Blood Culture (Wb) - Anticubital Right Blood Culture - Preliminary No growth in 48 hours. 11/25/23 10:38 Blood Culture (Wb) - Anticubital Left Blood Culture - Final Meth. resistant Staph. aureus 11/25/23 11:45 Urine, Catheterized Urine Culture - Final Culture exhibits no growth. 11/26/23 11:26 Stool Clostridioides difficile (PCR) - Final 11/25/23 11:40 Mucosa - Nose SARS-CoV-2, Influenza & RSV (PCR) - Final Dosing Weight Weight used for dosin.5 kg Estimated Creatinine Clearance Estimated Creatinine Clearance: 37.5 Goal Trough Goal Trough: 15-20 mcg/mL Pharmacy Plan for Drug Dosing Pharmacy Plan for Drug Dosing: Vancomycin trough level of 26.4, drawn 11 hours post-dose, was high -- above the target range of 15-20. This is consistent with the three day rise in SCr (1.81 to 2.01 to 2.39). Will hold current dosing and have a random level drawn in 12 hours to determine further orders. Pharmacy Service will continue to monitor and adjust dosing as required. Follow-Up Labs Follow-Up Labs: Trough: Vancomycin (random) Date/Time Labs Ordered Labs to be done on [date and time ordered]: 11/29/23 @0900
[2023-11-28 23:37] LABS: Bedside Glucose 277 mg/dL (74-106)
[2023-11-29] VITALS (17 sets, daily range): BP systolic 85–162; BP diastolic 49–88; PULSE 67–97; RESP 18–32; TEMP 36.2–36.6; O2SAT 90–97
[2023-11-29] MEDS: Ketorolac 15 MG/ML Vial IV ×2 (00:16→11:03)
[2023-11-29] MEDS: Ampicillin/Sulbactam 3 GM in 0.9% Normal Saline (100mL MB+) 100 ML IV ×2 (06:37→22:12)
[2023-11-29] MEDS: Insulin Lispro 100 UNIT/ML INSULN.PEN 10 UNIT SC ×2 (08:45→11:34)
[2023-11-29 09:07] LABS: Bedside Glucose 299 mg/dL (74-106)
[2023-11-29 09:21] LABS: Absolute Lymphocyte Count 0.74 X10^3/uL (0.83-4.51); Absolute Neutrophil Count 22.6 X10^3/uL (2.0-7.7); Basophil# 0.08 X10^3/uL; Basophil% 0.3 % (0-1); Eosinophil# 0.09 X10^3/uL; Eosinophils% 0.4 % (0-5); Hematocrit 30.7 % (40-54); Hemoglobin 9.6 g/dL (13.0-16.5); Lymphocyte # 0.74 X10^3/ul (0.83-4.51); Lymphocyte % 2.9 % (19-41); Mean Corp Hgb Conc 31.3 g/dL (32-36); Mean Corpuscular Hgb 27.1 pg (27.0-32.0); Mean Corpuscular Volume 86.7 fL (80-94); Mean Platelet Vol. 11.6 fl (6.2-12.0); Monocyte# 1.42 X10^3/uL; Monocyte% 5.5 % (0-10); NRBC Flagged by Analyzer 0.4 % (0-5); POSITIVE DIFFERENTIAL YES; Platelet Count 403 K/mm3 (150-450); RBC Distribution Width CV 16.2 % (11.6-14.6); RBC Distribution Width SD 51.4 fl (35.1-43.9); Red Blood Count 3.54 M/mm3 (4.6-6.2); White Blood Count 25.7 K/mm3 (4.4-11.0)
[2023-11-29 09:29] LABS: Differential Indicated SCAN CRITERIA MET
[2023-11-29 09:33] LABS: Anion Gap 6 (5-15); BUN 73 mg/dL (7-18); BUN/Creat Ratio 23.7 RATIO (10-20); Calcium,Total 8.3 mg/dL (8.5-10.1); Chloride 119 mmol/L (98-107); Creatinine, Serum 3.08 mg/dL (0.70-1.30); EST Glomerular Filtration Rate 22 mL/min (>60); Est Glom Filt Rate - Afr Amer 26 mL/min (>60); Estimated Creatinine Clearance 29.09 ml/min; Glucose 316 mg/dL (74-106); Potassium 4.7 mmol/L (3.5-5.1); Sodium Level 146 mmol/L (136-145)
[2023-11-29 09:34] LABS: Vancomycin, Random Level 21.6 ug/mL (0.0-15.0)
--- NOTE | 2023-11-29 09:48 | PCM.RX.CS ---
Consult Antibiotic Management Pharmacy has been consulted to manage selected antibiotic: Vancomycin Type of Intervention Type of Consult: Follow-up Prior Doses of Antibiotics Prior Doses of Antibiotics Received/Current Regimen: no scheduled dose currently Labs Labs: Sodium 146 mmol/L (136-145) H 11/29/23 09:00 Potassium 4.7 mmol/L (3.5-5.1) 11/29/23 09:00 Chloride 119 mmol/L (98-107) H 11/29/23 09:00 Carbon Dioxide 21.0 mmol/L (21.0-32.0) 11/29/23 09:00 Anion Gap 6 (5-15) 11/29/23 09:00 BUN 73 mg/dL (7-18) H 11/29/23 09:00 Creatinine 3.08 mg/dL (0.70-1.30) H 11/29/23 09:00 Est GFR (MDRD) Af Amer 26 mL/min (>60) L 11/29/23 09:00 Est GFR (MDRD) Non-Af 22 mL/min (>60) L 11/29/23 09:00 BUN/Creatinine Ratio 23.7 RATIO (10-20) H 11/29/23 09:00 Glucose 316 mg/dL (74-106) H 11/29/23 09:00 Vancomycin Trough 26.4 ug/mL (5.0-15.0) H 11/28/23 21:02 Random Vancomycin 21.6 ug/mL (0.0-15.0) H 11/29/23 09:00 Microbiology Microbiology: Microbiology 11/25/23 10:45 Blood Culture (Wb) - Anticubital Right Blood Culture - Preliminary No growth in 48 hours. 11/25/23 10:38 Blood Culture (Wb) - Anticubital Left Blood Culture - Final Meth. resistant Staph. aureus 11/25/23 11:45 Urine, Catheterized Urine Culture - Final Culture exhibits no growth. 11/26/23 11:26 Stool Clostridioides difficile (PCR) - Final 11/25/23 11:40 Mucosa - Nose SARS-CoV-2, Influenza & RSV (PCR) - Final Dosing Weight Weight used for dosin.5 kg Estimated Creatinine Clearance Estimated Creatinine Clearance: 29ml/min Goal Trough Goal Trough: 15-20 mcg/mL Pharmacy Plan for Drug Dosing Pharmacy Plan for Drug Dosing: The vanc random level drawn at 09:00 today was 21.6. This is still above goal range so will continue to hold dosing at this time. Will repeat a random level in 12 hours to see if can re-dose at that time. Of note, the patient's SCr increased to 3.08 today from 2.39 yesterday. Pharmacy Service will continue to monitor and adjust dosing as required. Follow-Up Labs Follow-Up Labs: Trough: Vancomycin (random) Date/Time Labs Ordered Labs to be done on [date and time ordered]: 11/29/23 21:00
[2023-11-29 09:56] LABS: Differential Comment SCANNED
--- NOTE | 2023-11-29 10:27 | PCM.PN.ID ---
Physical Exam Narrative No fever overnight, no new events Const General Appearance: Negative for cooperative Resp Auscultation: rhonchi Cardio regular rate and regular rhythm GI soft to palpation, non-tender and non-distended Skin no rashes or lesions noted ID ID: Route of nutrition/ use of supplements: [] Nutritional Intake: [] IV Site: [] Browning Catheter: [] Assessment & Plan Assessment/Plan (1) MRSA bacteremia: PLAN: suspected due to post-flu pneumonia. Cont vanc/unasyn. No veg seen on TTE. Will repeat bcx. Wbc better today. Will follow (2) Sepsis:
[2023-11-29 10:31] LABS: Pathologist Review Reviewed
[2023-11-29] MEDS: LORazepam 1 MG Tablet PO ×3 (10:59→22:12)
[2023-11-29] MEDS: Haloperidol 5 MG Tablet PO (11:04)
[2023-11-29] MEDS: Insulin Lispro 100 UNIT/ML INSULN.PEN SC ×2 (11:34→22:38)
[2023-11-29] MEDS: Heparin Injection (Vial) 5,000 UNIT/ML VIAL 5000 UNIT SC ×2 (11:34→22:12)
--- NOTE | 2023-11-29 11:37 | PCM.PROGNOTE ---
Subjective Subjective Patient seen and examined. He was quite drowsy and somnolent. Unable to do review of systems. He has remained hemodynamically stable. WBC is down to 25.7. Objective Data Objective Data Vital Signs: Vital Signs Temp Pulse Resp BP Pulse Ox O2 Del Method O2 Flow Rate 97.5 F L 76 22 H 116/55 L 97 Nasal Cannula 3 11/29/23 08:55 11/29/23 08:55 11/29/23 08:55 11/29/23 08:55 11/29/23 08:55 11/29/23 10:00 11/29/23 08:55 Oxygen Flow Rate (L/min) 3 Oxygen Delivery Method Nasal Cannula Weight: 232 lb 9.403 oz Body Mass Index (BMI) 33.3 Intake & Output: Intake and Output for Last 24 Hours 11/27/23 11/28/23 11/29/23 23:59 23:59 23:59 Intake Total 756.38 / 756.38 1219.62 / 1219.62 112 / 112 Output Total 0 / 0 Balance 755.38 / 755.38 1219.62 / 1219.62 112 / 112 Lab / Micro Data 11/29/23 09:00 11/29/23 09:00 Labs: Laboratory Results - last 24 hr 11/27/23 06:20: Diff Path Review Reviewed 11/28/23 11:53: POC Glucose 298 H 11/28/23 16:14: POC Glucose 180 H 11/28/23 21:02: Vancomycin Trough 26.4 H 11/28/23 22:38: POC Glucose 277 H 11/29/23 08:38: POC Glucose 299 H 11/29/23 09:00: WBC 25.7 H, RBC 3.54 L, Hgb 9.6 L, Hct 30.7 L, MCV 86.7, MCH 27.1, MCHC 31.3 L, RDW Std Deviation 51.4 H, RDW Coeff of Saman 16.2 H, Plt Count 403, MPV 11.6, Immature Gran % (Auto) 2.900 H, Neut % (Auto) 88.0 H, Lymph % (Auto) 2.9 L, [place] % (Auto) 5.5, Eos % (Auto) 0.4, Baso % (Auto) 0.3, Absolute Neuts (auto) 22.6 H, Absolute Lymphs (auto) 0.74 L, Nucleated RBC % 0.4, Differential Comment SCANNED, Sodium 146 H, Potassium 4.7, Chloride 119 H, Carbon Dioxide 21.0, Anion Gap 6, BUN 73 H, Creatinine 3.08 H, Estim Creat Clear Calc 29.09, Est GFR (MDRD) Af Amer 26 L, Est GFR (MDRD) Non-Af 22 L, BUN/Creatinine Ratio 23.7 H, Glucose 316 H, Calcium 8.3 L, Random Vancomycin 21.6 H Micro: Microbiology 11/25/23 10:45 Blood Culture (Wb) - Anticubital Right Blood Culture - Preliminary No growth in 48 hours. 11/25/23 10:38 Blood Culture (Wb) - Anticubital Left Blood Culture - Final Meth. resistant Staph. aureus 11/25/23 11:45 Urine, Catheterized Urine Culture - Final Culture exhibits no growth. 11/26/23 11:26 Stool Clostridioides difficile (PCR) - Final 11/25/23 11:40 Mucosa - Nose SARS-CoV-2, Influenza & RSV (PCR) - Final Radiography Diagnostic Testing: Radiology Impression Echocardiogram 11/28/23 12:11 Interpretation Summary Normal LV size. Left ventricular systolic function is normal. Stage 1 diastolic dysfunction. The left ventricular ejection fraction is 55 %. The study was technically limited. Ordering Physician: Kerry Glover Referring Physician: LELAND ROUSSEAU Performed By: Valentina Villar RCS Brain MRI 11/28/23 16:03 IMPRESSION: Mild atrophy and periventricular white matter ischemic change without evidence for acute infarct. Tiny old lacunar infarct in left basal ganglia. Electronically Signed: Familia Landin MD at 19:19 EDT , Physical Exam Const Orientation / Consciousness: confused and lethargic HEENT normocephalic, head/scalp atraumatic, moist oral mucous membranes and oropharynx normal Eyes PERRL and EOMs intact bilaterally Neck no lymphadenopathy and supple Lymph Lymphatic: no lymphadenopathy noted, no lymphedema noted and lymphedema Resp Resp Narrative: diminished breath sounds bilaterally, coarse crackles in all lung bailey. On 3 L of oxygen. Cardio regular rate, regular rhythm, S1 normal heart sound, S2 normal heart sound and no murmurs GI normal to inspection, nondistended, normoactive bowel sounds, soft to palpation, non-tender and non-distended Extremity normal capillary refill, no clubbing, cyanosis or edema and no calf tenderness General Extremity: no tenderness to palpation of joints or extremities Skin General Skin Exam: no breakdown Neuro Neuro Narrative: Patient lethargic, moves all extremities. Motor Exam: general weakness Psych Psych Narrative: restless, lethargic Assessment & Plan Assessment/Plan (1) Sepsis: (2) Pneumonia: PLAN: Plan #Sepsis due to left sided bacterial pneumonia wbc is down to 25 today on IV vancomycin and IV zosyn. There is concern for aspiration. Sputum culture and blood cultures pending. Breathing treatments bronchodilators. Titrate oxygen to maintain saturation above 90%. ID on board blood cultures growing Staph aureus. 2D echo showed normal ventricular size with the ventricular systolic function which was normal and stage I diastolic dysfunction and EF of 55%. No evidence of vegetation. #acute encephalopathy Had a seizure like episode yesterday His eyes rolled back in his head and he had tonic-clonic motions which lasted for a few minutes. Patient given a loading dose of Keppra. seizure precautions neurology consulted: per neuro rec's keppra discontinued. CT brain showed only chronic involutional changes EEG was also normal Will order ammonia level. Neurology as well as TSH. To minimize use of benzos, opiates, anticholinergics. #CAD: Has a history of non-STEMI. He did not have a cath in the past because his caregiver refused this. Lasix and losartan held on admission due to low blood pressure. troponins were also elevated 2D echo as above. Guardian refused cath in the past. On Lipitor #JULIETTE on CKD stage III: Creatinine is further up to 3.08 today. baseline Cr is ~ 2. Will hydrate with IVF, and if Cr trends up again, will get nephrology consult. #Hypertension: On metoprolol and Norvasc. #Hypernatremia: sodium is still 146 today. Will continue hydrating with IVF due to JULIETTE on CKD. #Type 2 diabetes mellitus: Jardiance and metformin on hold. On lantus. Insulin sliding scale. Accuchecks ACHS #Paranoid schizophrenia: depakote and haldol #Hypothyroidism: On Synthroid #Iron deficiency anemia:on oral iron supplementation.Hb today is 9.6, was 10.8 yesterday. Will monitor. DVT prophylaxis: lovenox, renally dosed. Charges/Coding Visit Charges Inpatient E&M: 89645 Subs Hosp L2
[2023-11-29 11:55] LABS: Bedside Glucose 262 mg/dL (74-106)
--- NOTE | 2023-11-29 12:04 | NEURO.PNOTE ---
Assessment and Plan: Neuro Assessment/Plan ERICK DIAZ, is a 63 M with schizophrenia, who presented from [facility] facility to the hospital 11/24 his skilled facility due to shortness of breath and hypoxia found to have PNA and MRSA Bacteremia with sepsis. He has had worsening mental status while in the hospital thus we were consulted. He also had a seizure like activity of staring off and body stiffening for few seconds in the setting of a coughing episode while being suctioned. S/p Keppra load. rEEG with no epileptic activity MRI brain with no acute findings Today he remains altered, worsening kidney function, WBC elevated 20s Diagnosis: Toxic metabolic encephalopathy, in the setting of sepsis, PNA, JULIETTE, Delirium, sedative medications (Ativan, Haldol, VPA), Poor baseline Seizure like activity- unsure whether that was a true seizure. Given questionable event with negative EEG/MRI and in the setting of infection, no need to treat with AED. Plan: - Send Ammonia level, TSH - Treatment of underlying infection per primary team - Recommend Delirium/Dementia Precautions: - Minimize use of benzos, opiates, anticholinergics, as these may worsen mental status - Would use caution with narcotic pain medications - Would still recommend adequately controlling pain, as uncontrolled pain is also a risk factor for delirium - Reinforce sleep hygiene; encourage patient to stay awake during the day to encourage normal sleep cycle. - Keep curtains/blinds open during the day to allow natural light and closed at night. - Would recommend reorienting/redirecting patient as much as possible, - Aim for consistent staffing, familiar objects, avoiding bright lights and loud noises, etc. I personally attended this patient and spent a total time of 45 minutes evaluating this patient including clinical assessment, review of chart, medical history imaging, and determining appropriate treatment and workup. Subject: Neurology Subjective Sereneetn evonne altered today, not following commands. Moving all extremities antigravity EEG Results Procedure Details EEG Procedure Details: EEG Procedure Details: Inpatient routine EEG report performed at [facility] Study start time: 11/28/23 1053 am End Time: 11/28/23 1131 am History: Patient admitted with PNA. Had seizure like activity Indication: Rule out seizures Technical Description: This is a 18-channel digital EEG recording with time-locked video and single-channel electrocardiogram. Electrodes are placed according to the 10 to 20 International System. The patient was monitored continuously by EEG technicians and EEG recording was reviewed intermittently with annotations to the EEG record. Portions of this record are reviewed using bandpass filters of 1 to 70 Hz and sensitivity of 7mV/mm. EEG DESCRIPTION Background: This recording was obtained during awake and sleep state. In the maximally alert state, a posterior dominant rhythm was a symmetric, reactive, well-modulated 8 Hz with a normal frequency-amplitude gradient. There was also an underlying mild generalized slowing seen in the awake state. During drowsiness, there was attenuation of the waking background. Stage II sleep architecture was normal in morphology and distribution. Activation Procedures: Photic stimulation was performed. No epileptic or abnormal activity was triggered by this procedure. Sporadic Epileptiform Discharges: none Focal slow activity: none Rhythmic or Periodic activity: none Seizures: none Patient Events: none EEG DIAGNOSIS: Abnormal, encephalopathy CLINICAL INTERPRETATION This abnormal awake and sleep routine EEG is consistent with mild encephalopathy. No epileptiform discharges or lateralizing signs were seen. Objective Data Objective Data Vital Signs: Vital Signs Temp Pulse Resp BP Pulse Ox O2 Del Method O2 Flow Rate 97.5 F L 76 22 H 116/55 L 97 Nasal Cannula 3 11/29/23 08:55 11/29/23 08:55 11/29/23 08:55 11/29/23 08:55 11/29/23 08:55 11/29/23 10:00 11/29/23 08:55 Oxygen Flow Rate (L/min) 3 Oxygen Delivery Method Nasal Cannula Weight: 105.5 kg Body Mass Index (BMI) 33.3 Intake & Output: Intake and Output for Last 24 Hours 11/27/23 11/28/23 11/29/23 23:59 23:59 23:59 Intake Total 756.38 / 756.38 1219.62 / 1219.62 112 / 112 Output Total 0 / 0 Balance 755.38 / 755.38 1219.62 / 1219.62 112 / 112 Lab / Micro Data 11/29/23 09:00 11/29/23 09:00 Labs: Laboratory Results - last 24 hr 11/27/23 06:20: Diff Path Review Reviewed 11/28/23 11:53: POC Glucose 298 H 11/28/23 16:14: POC Glucose 180 H 11/28/23 21:02: Vancomycin Trough 26.4 H 11/28/23 22:38: POC Glucose 277 H 11/29/23 08:38: POC Glucose 299 H 11/29/23 09:00: WBC 25.7 H, RBC 3.54 L, Hgb 9.6 L, Hct 30.7 L, MCV 86.7, MCH 27.1, MCHC 31.3 L, RDW Std Deviation 51.4 H, RDW Coeff of Saman 16.2 H, Plt Count 403, MPV 11.6, Immature Gran % (Auto) 2.900 H, Neut % (Auto) 88.0 H, Lymph % (Auto) 2.9 L, [place] % (Auto) 5.5, Eos % (Auto) 0.4, Baso % (Auto) 0.3, Absolute Neuts (auto) 22.6 H, Absolute Lymphs (auto) 0.74 L, Nucleated RBC % 0.4, Differential Comment SCANNED, Sodium 146 H, Potassium 4.7, Chloride 119 H, Carbon Dioxide 21.0, Anion Gap 6, BUN 73 H, Creatinine 3.08 H, Estim Creat Clear Calc 29.09, Est GFR (MDRD) Af Amer 26 L, Est GFR (MDRD) Non-Af 22 L, BUN/Creatinine Ratio 23.7 H, Glucose 316 H, Calcium 8.3 L, Random Vancomycin 21.6 H 11/29/23 11:32: POC Glucose 262 H Micro: Microbiology 11/25/23 10:45 Blood Culture (Wb) - Anticubital Right Blood Culture - Preliminary No growth in 48 hours. 11/25/23 10:38 Blood Culture (Wb) - Anticubital Left Blood Culture - Final Meth. resistant Staph. aureus 11/25/23 11:45 Urine, Catheterized Urine Culture - Final Culture exhibits no growth. 11/26/23 11:26 Stool Clostridioides difficile (PCR) - Final 11/25/23 11:40 Mucosa - Nose SARS-CoV-2, Influenza & RSV (PCR) - Final Radiography Diagnostic Testing: Radiology Impression Echocardiogram 11/28/23 12:11 Interpretation Summary Normal LV size. Left ventricular systolic function is normal. Stage 1 diastolic dysfunction. The left ventricular ejection fraction is 55 %. The study was technically limited. Ordering Physician: Kerry Glover Referring Physician: LELAND ROUSSEAU Performed By: Valentina Villar RCS Brain MRI 11/28/23 16:03 IMPRESSION: Mild atrophy and periventricular white matter ischemic change without evidence for acute infarct. Tiny old lacunar infarct in left basal ganglia. Electronically Signed: Familia Landin MD at 19:19 EDT , Physical Exam Narrative Patient altered, moaning, not following commands, when asked to raise his arms he says Can't. He moves all extremities antigravity spontaneously while moving in bed, and he withdrwas to nox stim in all extremities.
[2023-11-29 13:54] LABS: Pathologist Review Reviewed
[2023-11-29 14:03] LABS: Pathologist Review Reviewed
[2023-11-29] MEDS: Haloperidol 1 MG Tablet 2 MG PO (14:24)
[2023-11-29 14:31] LABS: Ammonia < 10.0 umol/L (11-32)
[2023-11-29 14:37] LABS: Thyroid Stim Hormone (TSH) 1.95 uIU/mL (0.358-3.74)
[2023-11-29] MEDS: Dext 5%-0.45% NS 1,000 ML 125 ML IV ×2 (14:54→22:10)
[2023-11-29 16:56] LABS: Bedside Glucose 207 mg/dL (74-106)
[2023-11-29 17:12] LABS: Bedside Glucose 269 mg/dL (74-106)
--- NOTE | 2023-11-29 17:33 | EKG12_ITS ---
Test Reason : Blood Pressure : / mmHG Vent. Rate : 125 BPM Atrial Rate : 000 BPM P-R Int : 000 ms QRS Dur : 088 ms QT Int : 276 ms P-R-T Axes : 000 065 -84 degrees QTc Int : 398 ms Atrial fibrillation with rapid ventricular response Nonspecific T wave abnormality Abnormal ECG When compared with ECG of 29-NOV-2023 17:40, MANUAL COMPARISON REQUIRED, DATA IS UNCONFIRMED Confirmed by ZANDER JADE, CATARINA ([id number]), web content editor TYRONE SANTIAGO ([id number]) on 12/01/2023 11:07:33 AM Referred By: Confirmed By:CATARINA FERMIN MD
--- NOTE | 2023-11-29 17:49 | NURSING ---
pt had 6.2 second pause on tele and the followed by bradycardia in 30-40s. resolved to Sinus with PACs. pt is lethargic. notified. obtained EKG and she will consult cardiology tomorrow.
[2023-11-29 21:24] LABS: Vancomycin, Random Level 20.1 ug/mL (0.0-15.0)
[2023-11-29] MEDS: Insulin Glargine-YFGN 100 UNIT/ML Pen 20 UNIT SC (22:37)
[2023-11-29] MEDS: traZODone 100 MG Tablet PO (22:43)
[2023-11-29] MEDS: MEDROXYPROGESTERONE ACETATE 10 MG TABLET PO (22:46)
[2023-11-29] MEDS: Atorvastatin Calcium 80 MG Tablet PO (22:46)
[2023-11-29] MEDS: Metoprolol Tartrate 100 MG Tablet PO (22:46)
--- NOTE | 2023-11-29 22:57 | PHA.PHARE_ITS ---
Consult Antibiotic Management Pharmacy has been consulted to manage selected antibiotic: Vancomycin Type of Intervention Type of Consult: Follow-up Suspected Infection Suspected Infection: Pneumonia Labs Labs: Sodium 146 mmol/L (136-145) H 11/29/23 09:00 Potassium 4.7 mmol/L (3.5-5.1) 11/29/23 09:00 Chloride 119 mmol/L (98-107) H 11/29/23 09:00 Carbon Dioxide 21.0 mmol/L (21.0-32.0) 11/29/23 09:00 Anion Gap 6 (5-15) 11/29/23 09:00 BUN 73 mg/dL (7-18) H 11/29/23 09:00 Creatinine 3.08 mg/dL (0.70-1.30) H 11/29/23 09:00 Est GFR (MDRD) Af Amer 26 mL/min (>60) L 11/29/23 09:00 Est GFR (MDRD) Non-Af 22 mL/min (>60) L 11/29/23 09:00 BUN/Creatinine Ratio 23.7 RATIO (10-20) H 11/29/23 09:00 Glucose 316 mg/dL (74-106) H 11/29/23 09:00 Vancomycin Trough 26.4 ug/mL (5.0-15.0) H 11/28/23 21:02 Random Vancomycin 20.1 ug/mL (0.0-15.0) H 11/29/23 20:48 Microbiology Microbiology: Microbiology 11/25/23 10:45 Blood Culture (Wb) - Anticubital Right Blood Culture - Preliminary No growth in 48 hours. 11/25/23 10:38 Blood Culture (Wb) - Anticubital Left Blood Culture - Final Meth. resistant Staph. aureus 11/25/23 11:45 Urine, Catheterized Urine Culture - Final Culture exhibits no growth. 11/26/23 11:26 Stool Clostridioides difficile (PCR) - Final 11/25/23 11:40 Mucosa - Nose SARS-CoV-2, Influenza & RSV (PCR) - Final Dosing Weight Weight used for dosin.5 kg Estimated Creatinine Clearance Estimated Creatinine Clearance: 29 Goal Trough Goal Trough: 15-20 mcg/mL Pharmacy Plan for Drug Dosing Pharmacy Plan for Drug Dosing: Vancomycin random level was taken, and was still high at 20.1. This is consi stent with continued decrease in renal function. Will monitor with another vancomycin random level in 24 hours. Pharmacy Service will continue to monitor and adjust dosing as required. Follow-Up Labs Follow-Up Labs: Trough: Vancomycin (random) Date/Time Labs Ordered Labs to be done on [date and time ordered]: 11/30/23 @2100
[2023-11-30] VITALS (19 sets, daily range): BP systolic 116–165; BP diastolic 63–92; PULSE 65–112; RESP 12–34; TEMP 36.4–36.7; O2SAT 92–99
[2023-11-30 04:18] LABS: Bedside Glucose 286 mg/dL (74-106)
--- NOTE | 2023-11-30 06:34 | EKG12_ITS ---
Test Reason : RHYTHM CHANGE Blood Pressure : / mmHG Vent. Rate : 078 BPM Atrial Rate : 078 BPM P-R Int : 098 ms QRS Dur : 078 ms QT Int : 394 ms P-R-T Axes : 038 069 060 degrees QTc Int : 449 ms Sinus rhythm with short HI Otherwise normal ECG When compared with ECG of 30-NOV-2023 07:51, Sinus rhythm has replaced Atrial fibrillation Vent. rate has decreased BY 47 BPM Non-specific change in ST segment in Inferior leads Nonspecific T wave abnormality no longer evident in Inferior leads Confirmed by ZANDER JADE, CATARINA ([id number]), acquisitions editor TYRONE SANTIAGO ([id number]) on 12/07/2023 1:18:06 PM Referred By: ZULEMA Confirmed By:CATARINA FERMIN MD
--- NOTE | 2023-11-30 06:34 | PCM.HOSP.N ---
Hospitalist Note Patient with pauses, asymptomatic just recently. VS stable otherwise. TSH normal. Mag pending. Will temporarily hold BB therapy. Will obtain EKG. Will update Dr. Glover who will further monitor and request Cardiology involvement if appropriate/necessary.
[2023-11-30] MEDS: Insulin Lispro 100 UNIT/ML INSULN.PEN SC ×4 (06:47→23:17)
[2023-11-30] MEDS: Dext 5%-0.45% NS 1,000 ML 125 ML IV (06:51)
[2023-11-30 07:04] LABS: Absolute Lymphocyte Count 0.92 X10^3/uL (0.83-4.51); Absolute Neutrophil Count 29.1 X10^3/uL (2.0-7.7); Basophil# 0.02 X10^3/uL; Basophil% 0.1 % (0-1); Eosinophil# 0.14 X10^3/uL; Eosinophils% 0.4 % (0-5); Hematocrit 31.8 % (40-54); Hemoglobin 10.1 g/dL (13.0-16.5); Lymphocyte # 0.92 X10^3/ul (0.83-4.51); Lymphocyte % 2.7 % (19-41); Mean Corp Hgb Conc 31.8 g/dL (32-36); Mean Corpuscular Hgb 27.1 pg (27.0-32.0); Mean Corpuscular Volume 85.3 fL (80-94); Mean Platelet Vol. 12.3 fl (6.2-12.0); Monocyte# 1.97 X10^3/uL; Monocyte% 5.8 % (0-10); NRBC Flagged by Analyzer 0.3 % (0-5); Neutrophil # 29.13 X10^3/uL (2.7-7.7); Neutrophil % 85.6 % (47-70); POSITIVE COUNT YES; POSITIVE DIFFERENTIAL YES; POSITIVE MORPHOLOGY YES; Platelet Count 512 K/mm3 (150-450); RBC Distribution Width CV 17.2 % (11.6-14.6); Red Blood Count 3.73 M/mm3 (4.6-6.2)
[2023-11-30 07:12] LABS: Differential Indicated SCAN CRITERIA MET
[2023-11-30 08:51] LABS: Anion Gap 8 (5-15); BUN 73 mg/dL (7-18); Calcium,Total 8.8 mg/dL (8.5-10.1); Chloride 118 mmol/L (98-107); Creatinine, Serum 2.81 mg/dL (0.70-1.30); EST Glomerular Filtration Rate 24 mL/min (>60); Est Glom Filt Rate - Afr Amer 29 mL/min (>60); Estimated Creatinine Clearance 31.88 ml/min; Glucose 417 mg/dL (74-106); Potassium 4.3 mmol/L (3.5-5.1); Sodium Level 146 mmol/L (136-145)
[2023-11-30 09:14] LABS: Magnesium 3.3 mg/dL (1.6-2.6)
--- NOTE | 2023-11-30 09:53 | PCM.CONS.C ---
Assessment & Plan Assessment/Plan (1) Atrial fibrillation: PLAN: Patient has a history of atrial fibrillation with uncontrolled ventricular response rate. Patient was noted to be on high-dose beta-diogo. He has had some pauses noted on the monitor as long as 6 seconds and it is not clear how symptomatic he is on this. He at the moment also has MRSA bacteremia and would not be an appropriate candidate for permanent pacemaker implantation. His white count is also noted to be markedly elevated. At this time together with his mental status I would recommend that we pursue supportive management. His beta-diogo should be held in the meantime and when restarted can be restarted at a lower dose and medications titrated to make sure he is not tachycardic or bradycardic. Further recommendations will be made based on his neurological assessment. (2) MRSA bacteremia: PLAN: He does have evidence of MRSA bacteremia, elevated white count, on antibiotics. At this time it would not be appropriate to place any permanent pacemaker. (3) HTN (hypertension): PLAN: He will continue on his antihypertensive therapy. Thank you for allowing me to participate in the care of your patient. Please don't hesitate to call if any issues arise. HPI Consult Data Date of Consult: 11/30/23 HPI Narrative HPI Narrative: ERICK DIAZ, is a 63 M who presents with confusion and possible seizure-like disorder. Patient was admitted to the telemetry unit. It appears that yesterday patient had a high-grade pauses over 5 seconds and also this morning. Cardiology was called for further recommendations and management. Patient is noted to have MRSA bacteremia positive and an echo which demonstrated normal findings. Patient's white count is noted to be markedly elevated today. We have been consulted for possible permanent pacemaker implantation. He has a history of underlying schizophrenia/altered mental status, hyperlipidemia, hypertension, hypothyroidism, diabetes mellitus, chronic renal insufficiency, chronic anemia, who resides at a [facility]. He has had a few admissions to the hospital including a recent discharge. He is on high-dose beta-diogo with metoprolol 100 mg twice a day. At the moment he is not in a state to give any decent history. PFSH Medical History Anxiety and depression Atrial fibrillation Chest pain Chronic anemia CKD (chronic kidney disease), stage III Congestive heart failure (CHF) COPD (chronic obstructive pulmonary disease) Diabetes mellitus, type 2 Fe deficiency anemia HLD (hyperlipidemia) HTN (hypertension) Hx of [facility] elevation myocardial infarction (NSTEMI) Hypothyroidism Obesity PVD (peripheral vascular disease) Schizophrenia Smoker Tobacco use Home Medications atorvastatin 80 mg tablet 80 mg PO DAILY arterial disease 07/25/19 [History Last Taken 11/24/23] cholecalciferol (vitamin D3) 50 mcg (2,000 unit) capsule 2,000 unit PO DAILY supplement 07/25/19 [History Last Taken 11/25/23] haloperidol 5 mg tablet 5 mg PO Q6H PRN Agitation 07/25/19 [History Last Taken 11/15/23] levothyroxine 50 mcg tablet 50 mcg PO DAILY hypothyroid 07/25/19 [History Last Taken 11/25/23] lorazepam 1 mg tablet 1 mg PO Q6H PRN Agitation 07/25/19 [History Last Taken 11/15/23] metformin 1,000 mg tablet 1,000 mg PO BID DM 07/25/19 [History Last Taken 11/25/23] trazodone 100 mg tablet 100 mg PO QHS insom 07/25/19 [History Last Taken 11/24/23] albuterol sulfate 0.63 mg/3 mL solution for nebulization 0.63 mg inhalation TID Wheezing 09/23/21 [History Last Taken 11/25/23] losartan 100 mg tablet 100 mg PO DAILY hypertensio 09/23/21 [History Last Taken 11/25/23] aluminum-mag hydroxide-simethicone 400 mg-400 mg-40 mg/5 mL oral susp (Mylanta Maximum Strength) 15 ml PO Q4H PRN heartburn/indigestion 09/24/21 [History Last Taken Unknown] magnesium hydroxide 400 mg/5 mL oral suspension (Milk of Magnesia) 30 ml PO DAILY PRN Constipation 09/24/21 [History Last Taken Unknown] nicotine (polacrilex) 2 mg buccal lozenge 2 mg buccal Q2H PRN smoking alternative 09/24/21 [History Last Taken Unknown] acetaminophen 325 mg tablet (Tylenol) 650 mg PO Q4H PRN fever or pain 11/10/21 [History Last Taken Unknown] ferrous sulfate 325 mg (65 mg iron) tablet 325 mg PO DAILY iron 07/21/22 [History Last Taken 11/25/23] haloperidol 2 mg tablet 2 mg PO TID agitation 07/21/22 [History Last Taken 11/25/23] metoprolol tartrate 100 mg tablet 100 mg PO BID htn 30 days #0 tabs 07/23/22 [Rx Last Taken 11/25/23] divalproex 250 mg tablet,delayed release (Depakote) 250 mg PO BID paranoid schizophrenia 08/11/22 [History Last Taken 11/24/23] furosemide 40 mg tablet (Lasix) 40 mg PO DAILY chf 08/11/22 [History Last Taken 11/24/23] amlodipine 5 mg tablet 5 mg PO DAILY #90 tabs 08/30/22 [Rx Last Taken 11/25/23] divalproex 500 mg tablet,extended release 24 hr (Depakote ER) 500 mg PO BID paranoid schizopreh 07/20/23 [History Last Taken 11/25/23] empagliflozin 25 mg tablet (Jardiance) 25 mg PO DAILY DM 07/20/23 [History Last Taken 11/25/23] insulin lispro 100 unit/mL subcutaneous cartridge 17 unit subcut TID hyperglycemia 07/20/23 [History Last Taken 11/24/23] lorazepam 1 mg tablet 1 mg PO BID anxiety 07/20/23 [History Last Taken 11/25/23] medroxyprogesterone 10 mg tablet (Provera) 10 mg PO BID sexual aggression 07/20/23 [History Last Taken 11/25/23] aspirin 81 mg tablet,delayed release (Adult Aspirin Regimen) 81 mg PO DAILY PVD 11/19/23 [History Last Taken 11/25/23] glucagon HCl 1 mg solution for injection (Glucagon (HCl) Emergency Kit) 1 mg IM Q20M PRN hypoglycemia 11/19/23 [History Last Taken Unknown] nicotine 10 mg inhalation cartridge (Nicotrol) 1 inh inhalation Q2H PRN nicotine cravings 11/19/23 [History Last Taken Unknown] prednisone 20 mg tablet 40 mg (2 x 20 mg) PO DAILY 3 days #6 tabs 11/20/23 [Rx Last Taken 11/24/23] albuterol sulfate 0.63 mg/3 mL solution for nebulization 0.63 mg inhalation Q4H PRN shortness of breath or wheezing 11/25/23 [History Last Taken 11/25/23] insulin glargine 100 unit/mL subcutaneous solution (Lantus U-100 Insulin) 35 unit subcut QHS diabetes 11/25/23 [History Last Taken 11/24/23] oseltamivir 75 mg capsule (Tamiflu) 75 mg PO DAILY 11/25/23 [History Last Taken 11/25/23] Allergy/AdvReac Type Severity Reaction Status Date / Time No Known Allergies Allergy Verified 11/25/23 10:09 Family History Mother No family history of disorders Father No family history of disorders Other Hypertension Surgical History No history of previous surgery No history of previous surgery Social History household members: other details: [facility] housing: other details: [facility]. Smoking Status: Current every day smoker tobacco type: cigarettes alcohol intake: never substance use type: does not use ROS Review of Systems ROS Unobtainable: due to encephalopathy and due to mental status Physical Exam Const Constitutional Narrative: Not particularly alert Neck Carotids: normal carotid upstroke Resp normal respiratory effort Cardio Rhythm: abnormal rhythm irregularly irregular and regularly irregular Extremity normal to inspection Risk Stratification Risk Stratification Applicable: No Objective Data Vital Signs: Vital Signs Temp Pulse Resp BP Pulse Ox O2 Del Method O2 Flow Rate 97.5 F L 77 23 H 144/63 H 94 Room Air 2 11/30/23 06:00 11/30/23 06:00 11/30/23 06:00 11/30/23 06:00 11/30/23 07:40 11/30/23 07:40 11/29/23 19:38 Oxygen Flow Rate (L/min) 2 Oxygen Delivery Method Room Air Weight: 232 lb 9.403 oz Body Mass Index (BMI) 33.3 Intake & Output: Intake and Output for Last 24 Hours 11/28/23 11/29/23 11/30/23 23:59 23:59 23:59 Intake Total 1219.62 / 1219.62 1182.33 / 1182.33 1000 / 1000 Output Total 0 / 0 Balance 1219.62 / 1219.62 1182.33 / 1182.33 1000 / 1000 Lab / Micro Data 11/30/23 06:40 11/30/23 06:40 Labs: Laboratory Results - last 24 hr 11/25/23 10:38: Diff Path Review Reviewed 11/26/23 01:08: Diff Path Review Reviewed 11/27/23 06:20: Diff Path Review Reviewed 11/29/23 06:35: POC Glucose 269 H 11/29/23 09:00: Differential Comment SCANNED, TSH 1.95 11/29/23 11:32: POC Glucose 262 H 11/29/23 14:06: Ammonia < 10.0 L 11/29/23 16:36: POC Glucose 207 H 11/29/23 20:48: Random Vancomycin 20.1 H 11/29/23 22:32: POC Glucose 286 H 11/30/23 06:40: WBC 34.0 H*, RBC 3.73 L, Hgb 10.1 L, Hct 31.8 L, MCV 85.3, MCH 27.1, MCHC 31.8 L, RDW Std Deviation 52.0 H, RDW Coeff of Saman 17.2 H, Plt Count 512 H, MPV 12.3 H, Immature Gran % (Auto) 5.400 H, Neut % (Auto) 85.6 H, Lymph % (Auto) 2.7 L, [place] % (Auto) 5.8, Eos % (Auto) 0.4, Baso % (Auto) 0.1, Absolute Neuts (auto) 29.1 H, Absolute Lymphs (auto) 0.92, Nucleated RBC % 0.3, Diff Path Review January, Sodium 146 H, Potassium 4.3, Chloride 118 H, Carbon Dioxide 20.0 L, Anion Gap 8, BUN 73 H, Creatinine 2.81 H, Estim Creat Clear Calc 31.88, Est GFR (MDRD) Af Amer 29 L, Est GFR (MDRD) Non-Af 24 L, BUN/Creatinine Ratio 26.0 H, Glucose 417 H, Calcium 8.8, Magnesium 3.3 H Cardiology Labs/Tests 11/30/23 06:40: WBC 34.0 H*, RBC 3.73 L, Hgb 10.1 L, Hct 31.8 L, MCV 85.3, MCH 27.1, MCHC 31.8 L, Plt Count 512 H, MPV 12.3 H, Immature Gran % (Auto) 5.400 H, Neut % (Auto) 85.6 H, Lymph % (Auto) 2.7 L, [place] % (Auto) 5.8, Eos % (Auto) 0.4, Baso % (Auto) 0.1, Absolute Neuts (auto) 29.1 H, Nucleated RBC % 0.3, Sodium 146 H, Potassium 4.3, Chloride 118 H, Carbon Dioxide 20.0 L, Anion Gap 8, BUN 73 H, Creatinine 2.81 H, Est GFR (MDRD) Af Amer 29 L, Est GFR (MDRD) Non-Af 24 L, BUN/Creatinine Ratio 26.0 H, Glucose 417 H, Calcium 8.8, Magnesium 3.3 H Rhythm: EKG: ECHO: Stress Test: Cardiac Cath: PCI: CT Surgery: Holter monitor: EPS: PPM: CXR: Chest CT Scan:
[2023-11-30 10:55] LABS: Bedside Glucose 372 mg/dL (74-106)
[2023-11-30] MEDS: Divalproex Sodium 250 MG Tablet 500 MG PO (11:04)
[2023-11-30] MEDS: Ferrous Sulfate 325 MG Tablet PO (11:04)
[2023-11-30] MEDS: Aspirin E.C. 81 MG Tablet PO (11:04)
[2023-11-30] MEDS: amLODIPine 5 MG Tablet PO (11:04)
[2023-11-30] MEDS: Levothyroxine 50 MCG Tablet PO (11:04)
[2023-11-30] MEDS: MEDROXYPROGESTERONE ACETATE 10 MG TABLET PO (11:05)
[2023-11-30] MEDS: Haloperidol 1 MG Tablet 2 MG PO (11:05)
[2023-11-30] MEDS: LORazepam 1 MG Tablet PO (11:07)
[2023-11-30] MEDS: Heparin Injection (Vial) 5,000 UNIT/ML VIAL 5000 UNIT SC ×2 (11:13→23:15)
[2023-11-30] MEDS: Insulin Lispro 100 UNIT/ML INSULN.PEN 10 UNIT SC (12:27)
[2023-11-30 12:51] LABS: Bedside Glucose 396 mg/dL (74-106)
--- NOTE | 2023-11-30 12:54 | PCM.PN.ID ---
Physical Exam Narrative Tracks to voice some, no fever Const Orientation / Consciousness: lethargic Resp Auscultation: rhonchi and wheezes Cardio regular rate and regular rhythm GI soft to palpation, non-tender and non-distended Skin no rashes or lesions noted ID ID: Route of nutrition/ use of supplements: [] Nutritional Intake: [] IV Site: [] Browning Catheter: [] Assessment & Plan Assessment/Plan (1) MRSA bacteremia: PLAN: suspected due to post-flu pneumonia. Cont vanc/unasyn. No veg seen on TTE. Following repeat bcx. Wbc worse today Will follow (2) Sepsis:
--- NOTE | 2023-11-30 13:03 | PN_ITS ---
Subjective Subjective Patient seen and examined. He was more alert and restless. Unable to do review of systems. He is on 2L of oxygen. Objective Data Objective Data Vital Signs: Vital Signs Temp Pulse Resp BP Pulse Ox O2 Del Method O2 Flow Rate 97.5 F L 77 23 H 144/63 H 97 Nasal Cannula 2 11/30/23 12:00 11/30/23 12:00 11/30/23 12:00 11/30/23 12:00 11/30/23 12:00 11/30/23 12:00 11/30/23 12:00 Oxygen Flow Rate (L/min) 2 Oxygen Delivery Method Nasal Cannula Weight: 232 lb 9.403 oz Body Mass Index (BMI) 33.3 Intake & Output: Intake and Output for Last 24 Hours 11/28/23 11/29/23 11/30/23 23:59 23:59 23:59 Intake Total 1219.62 / 1219.62 1182.33 / 1182.33 1060 / 1060 Output Total 0 / 0 Balance 1219.62 / 1219.62 1182.33 / 1182.33 1060 / 1060 Lab / Micro Data 11/30/23 06:40 11/30/23 06:40 Labs: Laboratory Results - last 24 hr 11/25/23 10:38: Diff Path Review Reviewed 11/26/23 01:08: Diff Path Review Reviewed 11/29/23 06:35: POC Glucose 269 H 11/29/23 09:00: TSH 1.95 11/29/23 14:06: Ammonia < 10.0 L 11/29/23 16:36: POC Glucose 207 H 11/29/23 20:48: Random Vancomycin 20.1 H 11/29/23 22:32: POC Glucose 286 H 11/30/23 06:40: WBC 34.0 H*, RBC 3.73 L, Hgb 10.1 L, Hct 31.8 L, MCV 85.3, MCH 27.1, MCHC 31.8 L, RDW Std Deviation 52.0 H, RDW Coeff of Saman 17.2 H, Plt Count 512 H, MPV 12.3 H, Immature Gran % (Auto) 5.400 H, Neut % (Auto) 85.6 H, Lymph % (Auto) 2.7 L, [place] % (Auto) 5.8, Eos % (Auto) 0.4, Baso % (Auto) 0.1, Absolute Neuts (auto) 29.1 H, Absolute Lymphs (auto) 0.92, Nucleated RBC % 0.3, Diff Path Review January, Sodium 146 H, Potassium 4.3, Chloride 118 H, Carbon Dioxide 20.0 L, Anion Gap 8, BUN 73 H, Creatinine 2.81 H, Estim Creat Clear Calc 31.88, Est GFR (MDRD) Af Amer 29 L, Est GFR (MDRD) Non-Af 24 L, BUN/Creatinine Ratio 26.0 H, Glucose 417 H, Calcium 8.8, Magnesium 3.3 H 11/30/23 06:45: POC Glucose 372 H 11/30/23 12:27: POC Glucose 396 H Micro: Microbiology 11/28/23 13:16 Blood Culture (Wb) - Left Hand Blood Culture - Preliminary No growth in 48 hours. 11/25/23 10:45 Blood Culture (Wb) - Anticubital Right Blood Culture - Final No growth in 5 days. 11/25/23 10:38 Blood Culture (Wb) - Anticubital Left Blood Culture - Final Meth. resistant Staph. aureus 11/25/23 11:45 Urine, Catheterized Urine Culture - Final Culture exhibits no growth. 11/26/23 11:26 Stool Clostridioides difficile (PCR) - Final 11/25/23 11:40 Mucosa - Nose SARS-CoV-2, Influenza & RSV (PCR) - Final Physical Exam Const Constitutional Narrative: lethargic, restless Orientation / Consciousness: confused and lethargic HEENT normocephalic, head/scalp atraumatic, moist oral mucous membranes and oropharynx normal Eyes PERRL and EOMs intact bilaterally Neck no lymphadenopathy and supple Lymph Lymphatic: no lymphadenopathy noted, no lymphedema noted and lymphedema Resp Resp Narrative: diminished breath sounds bilaterally, coarse crackles in all lung bailey. On 2 L of oxygen. Cardio regular rate, regular rhythm, S1 normal heart sound, S2 normal heart sound and no murmurs GI normal to inspection, nondistended, normoactive bowel sounds, soft to palpation, non-tender and non-distended Extremity normal capillary refill, no clubbing, cyanosis or edema and no calf tenderness General Extremity: no tenderness to palpation of joints or extremities Skin General Skin Exam: no breakdown Neuro Neuro Narrative: Patient lethargic, moves all extremities. Motor Exam: general weakness Psych Psych Narrative: restless, lethargic Assessment & Plan Assessment/Plan (1) Sepsis: (2) Pneumonia: PLAN: Plan #Sepsis due to left MSSA pneumonia * wbc is up to 34 today * on IV vancomycin and IV unasyn * There is concern for aspiration. * Breathing treatments bronchodilators. Titrate oxygen to maintain saturation above 90%. * ID on board * blood cultures growing Staph aureus. * 2D echo showed normal ventricular size with the ventricular systolic function which was normal and stage I diastolic dysfunction and EF of 55%. No evidence of vegetation. * #acute encephalopathy * Had a seizure like episode during this admission. His eyes rolled back in his head and he had tonic-clonic motions which lasted for a few minutes. * Patient given a loading dose of Keppra. * seizure precautions * neurology consulted: per neuro rec's keppra discontinued. * CT brain showed only chronic involutional changes * EEG was also normal * Ammonia level not elevated. TSH is WNL. To minimize use of benzos, opiates, anticholinergics. * #CAD: * Has a history of non-STEMI. He did not have a cath in the past because his caregiver refused this. * Lasix and losartan held on admission due to low blood pressure. * troponins were also elevated * 2D echo as above. * Guardian refused cath in the past. * On Lipitor * has been having pauses on his telemetry as well as bradycardia when sleeping. cardiology consulted. * metoprolol held. Per cardiology, beta diogo to be started on a lower dose and medication titrated to ensure he is not tachycardic or bradycardic. * #JULIETTE on CKD stage III: Creatinine is further up to down to 2.81 today. baseline Cr is ~ 2. Will hydrate with IVF, and if Cr trends up again, will get nephrology consult. #Hypertension: On metoprolol and Norvasc. #Hypernatremia: sodium is still 146 today. Will continue hydrating with IVF due to JULIETTE on CKD. #Type 2 diabetes mellitus: Jardiance and metformin on hold. On lantus. Insulin sliding scale. Accuchecks ACHS #Paranoid schizophrenia: depakote and haldol #Hypothyroidism: On Synthroid #Iron deficiency anemia:on oral iron supplementation. Hb today is 10.1 DVT prophylaxis: lovenox, renally dosed. Charges/Coding Visit Charges Inpatient E&M: 19733 Subs Hosp L3
--- NOTE | 2023-11-30 16:32 | PN.NEURO_ITS ---
Assessment and Plan: Neuro Assessment/Plan ERICK DIAZ, is a 63 M with schizophrenia, who [facility] the hospital 11/24 his skilled facility due to shortness of breath and hypoxia found to have PNA and MRSA Bacteremia with sepsis. He has had worsening mental status while in the hospital thus we were consulted. He also had a seizure like activity of staring off and body stiffening for few seconds in the setting of a coughing episode while being suctioned. S/p Keppra load. rEEG with no epileptic activity MRI brain with no acute findings He remains altered, not following commands. White count trending up 30s. JULIETTE slightly improved Diagnosis: Toxic metabolic encephalopathy, in the setting of sepsis, PNA, JULIETTE, Delirium, sedative medications (Ativan, Haldol, VPA), Poor baseline Seizure like activity- unsure whether that was a true seizure. Given questionable event with negative EEG/MRI and in the setting of infection, no need to treat with AED. Plan: - Send Ammonia level, TSH - Treatment of underlying infection per primary team - Recommend Delirium/Dementia Precautions: - Minimize use of benzos, opiates, anticholinergics, as these may worsen mental status - Would use caution with narcotic pain medications - Would still recommend adequately controlling pain, as uncontrolled pain is also a risk factor for delirium - Reinforce sleep hygiene; encourage patient to stay awake during the day to encourage normal sleep cycle. - Keep curtains/blinds open during the day to allow natural light and closed at night. - Would recommend reorienting/redirecting patient as much as possible, - Aim for consistent staffing, familiar objects, avoiding bright lights and loud noises, etc. I personally attended this patient and spent a total time of 45 minutes ev aluating this patient including clinical assessment, review of chart, medical history imaging, and determining appropriate treatment and workup. Subject: Neurology Subjective he remain altered, not following commands, Moving all extremities spontaneously EEG Results Procedure Details EEG Procedure Details: Inpatient routine EEG report performed at [facility] Study start time: 11/28/23 1053 am End Time: 11/28/23 1131 am History: Patient admitted with PNA. Had seizure like activity Indication: Rule out seizures Technical Description: This is a 18-channel digital EEG recording with time-l ocked video and single-channel electrocardiogram. Electrodes are placed according to the 10 to 20 International System. The patient was monitored continuously by EEG technicians and EEG recording was reviewed intermittently with annotations to the EEG record. Portions of this record are reviewed using bandpass filters of 1 to 70 Hz and sensitivity of 7mV/mm. EEG DESCRIPTION Background: This recording was obtained during awake and sleep state. In the maximally alert state, a posterior dominant rhythm was a symmetric, reactive, well-modulated 8 Hz with a normal frequency-amplitude gradient. There was also an underlying mild generalized slowing seen in the awake state. During drowsine ss, there was attenuation of the waking background. Stage II sleep architecture was normal in morphology and distribution. Activation Procedures: Photic stimulation was performed. No epileptic or abnormal activity was triggered by this procedure. Sporadic Epileptiform Discharges: none Focal slow activity: none Rhythmic or Periodic activity: none Seizures: none Patient Events: none EEG DIAGNOSIS: Abnormal, encephalopathy CLINICAL INTERPRETATION This abnormal awake and sleep routine EEG is consistent with mild encephalopathy. No epileptiform discharges or lateralizing signs were seen Objective Data Objective Data Vital Signs: Vital Signs Temp Pulse Resp BP Pulse Ox O2 Del Method O2 Flow Rate 98.1 F 93 18 165/85 H 98 Nasal Cannula 2 11/30/23 16:25 11/30/23 16:25 11/30/23 16:25 11/30/23 16:25 11/30/23 16:25 11/30/23 16:25 11/30/23 16:25 Oxygen Flow Rate (L/min) 2 Oxygen Delivery Method Nasal Cannula Weight: 105.5 kg Body Mass Index (BMI) 33.3 Intake & Output: Intake and Output for Last 24 Hours 11/28/23 11/29/23 11/30/23 23:59 23:59 23:59 Intake Total 1219.62 / 1219.62 1182.33 / 1182.33 1380.83 / 1380.83 Output Total 0 / 0 Balance 1219.62 / 1219.62 1182.33 / 1182.33 1380.83 / 1380.83 Lab / Micro Data 11/30/23 06:40 11/30/23 06:40 Labs: Laboratory Results - last 24 hr 11/29/23 06:35: POC Glucose 269 H 11/29/23 16:36: POC Glucose 207 H 11/29/23 20:48: Random Vancomycin 20.1 H 11/29/23 22:32: POC Glucose 286 H 11/30/23 06:40: WBC 34.0 H*, RBC 3.73 L, Hgb 10.1 L, Hct 31.8 L, MCV 85.3, MCH 27.1, MCHC 31.8 L, RDW Std Deviation 52.0 H, RDW Coeff of Saman 17.2 H, Plt Count 512 H, MPV 12.3 H, Immature Gran % (Auto) 5.400 H, Neut % (Auto) 85.6 H, Lymph % (Auto) 2.7 L, [place] % (Auto) 5.8, Eos % (Auto) 0.4, Baso % (Auto) 0.1, Absolute Neuts (auto) 29.1 H, Absolute Lymphs (auto) 0.92, Nucleated RBC % 0.3, Diff Path Review January, Sodium 146 H, Potassium 4.3, Chloride 118 H, Carbon Dioxide 20.0 L, Anion Gap 8, BUN 73 H, Creatinine 2.81 H, Estim Creat Clear Calc 31.88, Est GFR (MDRD) Af Amer 29 L, Est GFR (MDRD) Non-Af 24 L, BUN/Creatinine Ratio 26.0 H, Glucose 417 H, Calcium 8.8, Magnesium 3.3 H 11/30/23 06:45: POC Glucose 372 H 11/30/23 12:27: POC Glucose 396 H Micro: Microbiology 11/28/23 13:16 Blood Culture (Wb) - Left Hand Blood Culture - Preliminary No growth in 48 hours. 11/25/23 10:45 Blood Culture (Wb) - Anticubital Right Blood Culture - Final No growth in 5 days. 11/25/23 10:38 Blood Culture (Wb) - Anticubital Left Blood Culture - Final Meth. resistant Staph. aureus 11/25/23 11:45 Urine, Catheterized Urine Culture - Final Culture exhibits no growth. 11/26/23 11:26 Stool Clostridioides difficile (PCR) - Final 11/25/23 11:40 Mucosa - Nose SARS-CoV-2, Influenza & RSV (PCR) - Final Physical Exam Narrative Exam unchanged. Patient lying in bed,not following commands, opesn eyes to voice, moaning, moves all extremities spontaneously
[2023-11-30 17:01] LABS: Bedside Glucose 342 mg/dL (74-106)
[2023-11-30] MEDS: 0.9% Saline Lock 10 ML Syringe IV ×3 (18:09→23:15)
[2023-11-30] MEDS: Ampicillin/Sulbactam 3 GM in 0.9% Normal Saline (100mL MB+) 100 ML IV (19:48)
--- NOTE | 2023-11-30 20:08 | NURSING ---
1999 pauses on tele, afib. pt drowsy, alert to person only. periods of apnea with pauses. dr bowers at bedside. decision to transfer to icu
--- NOTE | 2023-11-30 20:10 | PCM.HOSP.N ---
Hospitalist Note Patient with recurrent significant cardiac pauses. Unable to really determine symptomatic nature given his underlying cognitive impairment and significant medical illness. Patient was evaluated cardiology and appropriately so is not a great candidate because of his recent MRSA bacteremia and sepsis. At this point we will transition to the ICU, discussed case with Dr. Steel who is in house and will place external pacers with atropine as needed but again continue conservative interventions and treatment. Discussed with PC nursing staff and patient strips were also sent to cardiology.
[2023-11-30] MEDS: Insulin Glargine-YFGN 100 UNIT/ML Pen 20 UNIT SC (23:18)
[2023-11-30 23:40] LABS: Bedside Glucose 263 mg/dL (74-106)
[2023-11-30 23:48] LABS: Vancomycin, Random Level 13.2 ug/mL (0.0-15.0)
[2023-12-01] VITALS (19 sets, daily range): BP systolic 103–156; BP diastolic 67–105; PULSE 30–130; RESP 12–27; TEMP 36.4–37.1; O2SAT 92–99; BMI 32.0
[2023-12-01] MEDS: Haloperidol Lactate 5 MG/ML Vial 2 MG IV ×3 (02:11→13:27)
[2023-12-01] MEDS: LORazepam 2 MG/ML Syringe 1 MG IV ×3 (02:11→21:16)
[2023-12-01] MEDS: 0.9% Saline Lock 10 ML Syringe IV ×2 (02:12→06:27)
--- NOTE | 2023-12-01 02:19 | NURSING ---
0200 pt continually ripping oxygen, tele leads, and gown off. Pt also ripped out IV. Yelling out and throwing legs over side rail. Notified Dr. Campbell. See orders.
[2023-12-01 04:25] LABS: Hematocrit 30.1 % (40-54); Hemoglobin 9.4 g/dL (13.0-16.5); Mean Corp Hgb Conc 31.2 g/dL (32-36); Mean Corpuscular Hgb 25.9 pg (27.0-32.0); Mean Corpuscular Volume 82.9 fL (80-94); Mean Platelet Vol. 11.5 fl (6.2-12.0); POSITIVE COUNT YES; POSITIVE DIFFERENTIAL YES; POSITIVE MORPHOLOGY YES; Platelet Count 501 K/mm3 (150-450); RBC Distribution Width CV 18.6 % (11.6-14.6); RBC Distribution Width SD 52.5 fl (35.1-43.9); Red Blood Count 3.63 M/mm3 (4.6-6.2); White Blood Count 26.4 K/mm3 (4.4-11.0)
[2023-12-01 04:26] LABS: Differential Indicated MANUAL DIFF
[2023-12-01 05:21] LABS: Anion Gap 4 (5-15); BUN 74 mg/dL (7-18); BUN/Creat Ratio 28.7 RATIO (10-20); Calcium,Total 8.9 mg/dL (8.5-10.1); Chloride 122 mmol/L (98-107); Creatinine, Serum 2.58 mg/dL (0.70-1.30); EST Glomerular Filtration Rate 27 mL/min (>60); Est Glom Filt Rate - Afr Amer 32 mL/min (>60); Estimated Creatinine Clearance 34.03 ml/min; Glucose 273 mg/dL (74-106); Sodium Level 152 mmol/L (136-145)
[2023-12-01 06:57] LABS: Lymphocyte 4 % (19-41); Monocyte 15 % (0-10); Myelocyte 2 % (0-0); Neutrophil-Segmented 78 % (47-70); Promyelocyte 1 % (0-0); Total Cells Counted 100 (MANUAL DIFF)
[2023-12-01 06:58] LABS: Anisocytosis 3+; Burr Cells 2+; Target Cells RARE
[2023-12-01 06:59] LABS: Absolute Neutrophil Count 20.6 X10^3/uL (2.0-7.7)
[2023-12-01 07:00] LABS: Absolute Lymphocyte Count 1.06 X10^3/uL (0.83-4.51)
--- NOTE | 2023-12-01 07:33 | CON.PCM.CC_ITS ---
Assessment & Plan Assessment/Plan (1) MRSA bacteremia: (2) Sepsis: PLAN: Plan RECOMMENDATIONS: 1. Antimicrobials per ID recommendations. 2. Management of dysrhythmia per cardiology. 3. Continue appropriate DVT prophylaxis. 4. Encourage incentive spirometer use and mobilize patient as tolerated. 5. I have no additional recommendations from a critical care perspective. Will sign off. Please call with any additional questions. IMPRESSIONS: 1. Sepsis secondary to MRSA bacteremia It is suspected that the patient developed post influenza pneumonia resulting in secondary bacteremia. The patient remains on antimicrobials per ID recommendations. No vegetations were seen on TTE. The patient remains hemodynamically stable. 2. History of atrial fibrillation/sinus pauses/coronary artery disease Cardiology is currently following to assist with medical management. Will defer management on rate/rhythm control strategy. 3. History of paranoid schizophrenia/chronic kidney disease /hypertension/diabetes mellitus/hypothyroidism Complicates care, management, recovery and prognosis. Continue supportive measures as noted above along with basal and sliding scale insulin coverage. This note was generated with [employer] dictation software. It may contain incorrect words, spelling, and punctuation that were not noted in checking the note before signing. HPI Consult Data Date of Consult: 12/02/23 HPI Narrative Reason for Consultation: Sepsis HPI Narrative: The patient is a 63-year-old male, with a history as outlined below, who was initially admitted to the hospital on November 24 after presenting with shortness of breath and hypoxemia. The patient has known baseline paranoid schizophrenia, hypothyroidism, chronic kidney disease and coronary artery disease. No history was able to be obtained personally from the patient due to his underlying mental status. The patient's initial workup was notable for an elevated white blood cell count and baseline anemia. Initial chemistry profile was notable for a creatinine of 2.05 and lactate of 2.2. Troponins were elevated at 314 with a BNP of 321. Initial chest x-ray demonstrated a patchy infiltrate in the left perihilar region and left lower lobe. The patient was ultimately admitted to the progressive care unit to receive antimicrobial therapy over concerns for sepsis related to left-sided pneumonia along with an NSTEMI. Consultations were placed to infectious diseases, neurology and cardiology. The patient's hospital course has been complicated by positive blood cultures for MRSA noted on November 24. Echocardiogram demonstrated stage I diastolic dysfunction with an ejection fraction of 55%. At the recommendations of neurology, MRI brain was completed on November 27 which demonstrated mild atrophy and periventricular white matter ischemic changes without evidence of acute infarct. He was felt to have toxic metabolic encephalopathy in the setting of sepsis. On the evening of November 29, the patient apparently developed sinus pauses on telemetry. The case was again discussed with cardiology and the patient was transferred to the intensive care unit out of caution. This morning, the patient continues with his baseline confusion but remains otherwise hemodynamically stable on 2 L/min via nasal cannula. Repeat blood cultures from November 27 and have not demonstrated any growth to date. [facility] Medical History Anxiety and depression Atrial fibrillation Chest pain Chronic anemia CKD (chronic kidney disease), stage III Congestive heart failure (CHF) COPD (chronic obstructive pulmonary disease) Diabetes mellitus, type 2 Fe deficiency anemia HLD (hyperlipidemia) HTN (hypertension) Hx of non-ST elevation myocardial infarction (NSTEMI) Hypothyroidism Obesity PVD (peripheral vascular disease) Schizophrenia Smoker Tobacco use Home Medications atorvastatin 80 mg tablet 80 mg PO DAILY arterial disease 07/25/19 [History Last Taken 11/24/23] cholecalciferol (vitamin D3) 50 mcg (2,000 unit) capsule 2,000 unit PO DAILY supplement 07/25/19 [History Last Taken 11/25/23] haloperidol 5 mg tablet 5 mg PO Q6H PRN Agitation 07/25/19 [History Last Taken 11/15/23] levothyroxine 50 mcg tablet 50 mcg PO DAILY hypothyroid 07/25/19 [History Last Taken 11/25/23] lorazepam 1 mg tablet 1 mg PO Q6H PRN Agitation 07/25/19 [History Last Taken 11/15/23] metformin 1,000 mg tablet 1,000 mg PO BID DM 07/25/19 [History Last Taken 11/25/23] trazodone 100 mg tablet 100 mg PO QHS insom 07/25/19 [History Last Taken 11/24/23] albuterol sulfate 0.63 mg/3 mL solution for nebulization 0.63 mg inhalation TID Wheezing 09/23/21 [History Last Taken 11/25/23] losartan 100 mg tablet 100 mg PO DAILY hypertensio 09/23/21 [History Last Taken 11/25/23] aluminum-mag hydroxide-simethicone 400 mg-400 mg-40 mg/5 mL oral susp (Mylanta Maximum Strength) 15 ml PO Q4H PRN heartburn/indigestion 09/24/21 [History Last Taken Unknown] magnesium hydroxide 400 mg/5 mL oral suspension (Milk of Magnesia) 30 ml PO DAILY PRN Constipation 09/24/21 [History Last Taken Unknown] nicotine (polacrilex) 2 mg buccal lozenge 2 mg buccal Q2H PRN smoking alternative 09/24/21 [History Last Taken Unknown] acetaminophen 325 mg tablet (Tylenol) 650 mg PO Q4H PRN fever or pain 11/10/21 [History Last Taken Unknown] ferrous sulfate 325 mg (65 mg iron) tablet 325 mg PO DAILY iron 07/21/22 [History Last Taken 11/25/23] haloperidol 2 mg tablet 2 mg PO TID agitation 07/21/22 [History Last Taken 11/25/23] metoprolol tartrate 100 mg tablet 100 mg PO BID htn 30 days #0 tabs 07/23/22 [Rx Last Taken 11/25/23] divalproex 250 mg tablet,delayed release (Depakote) 250 mg PO BID paranoid schizophrenia 08/11/22 [History Last Taken 11/24/23] furosemide 40 mg tablet (Lasix) 40 mg PO DAILY chf 08/11/22 [History Last Taken 11/24/23] amlodipine 5 mg tablet 5 mg PO DAILY #90 tabs 08/30/22 [Rx Last Taken 11/25/23] divalproex 500 mg tablet,extended release 24 hr (Depakote ER) 500 mg PO BID paranoid schizopreh 07/20/23 [History Last Taken 11/25/23] empagliflozin 25 mg tablet (Jardiance) 25 mg PO DAILY DM 07/20/23 [History Last Taken 11/25/23] insulin lispro 100 unit/mL subcutaneous cartridge 17 unit subcut TID hyperglycemia 07/20/23 [History Last Taken 11/24/23] lorazepam 1 mg tablet 1 mg PO BID anxiety 07/20/23 [History Last Taken 11/25/23] medroxyprogesterone 10 mg tablet (Provera) 10 mg PO BID sexual aggression 07/20/23 [History Last Taken 11/25/23] aspirin 81 mg tablet,delayed release (Adult Aspirin Regimen) 81 mg PO DAILY PVD 11/19/23 [History Last Taken 11/25/23] glucagon HCl 1 mg solution for injection (Glucagon (HCl) Emergency Kit) 1 mg IM Q20M PRN hypoglycemia 11/19/23 [History Last Taken Unknown] nicotine 10 mg inhalation cartridge (Nicotrol) 1 inh inhalation Q2H PRN nicotine cravings 11/19/23 [History Last Taken Unknown] prednisone 20 mg tablet 40 mg (2 x 20 mg) PO DAILY 3 days #6 tabs 11/20/23 [Rx Last Taken 11/24/23] albuterol sulfate 0.63 mg/3 mL solution for nebulization 0.63 mg inhalation Q4H PRN shortness of breath or wheezing 11/25/23 [History Last Taken 11/25/23] insulin glargine 100 unit/mL subcutaneous solution (Lantus U-100 Insulin) 35 unit subcut QHS diabetes 11/25/23 [History Last Taken 11/24/23] oseltamivir 75 mg capsule (Tamiflu) 75 mg PO DAILY 11/25/23 [History Last Taken 11/25/23] Allergy/AdvReac Type Severity Reaction Status Date / Time No Known Allergies Allergy Verified 11/25/23 10:09 Family History Mother No family history of disorders Father No family history of disorders Other Hypertension Surgical History No history of previous surgery No history of previous surgery Social History household members: other details: [facility]. housing: other details: [facility]. Smoking Status: Current every day smoker tobacco type: cigarettes alcohol intake: never substance use type: does not use ROS Review of Systems ROS Unobtainable: due to mental status Physical Exam Const alert Constitutional Narrative: Confused and disoriented. HEENT normocephalic and head/scalp atraumatic Eyes PERRL and EOMs intact bilaterally Neck supple General: trachea midline Chest inspection of chest normal Resp normal respiratory effort Auscultation: Negative for rales, rhonchi or wheezes Cardio S1 normal heart sound and S2 normal heart sound Rate: tachycardic Rhythm: abnormal rhythm GI normal to inspection, nondistended, normoactive bowel sounds Extremity no clubbing, cyanosis or edema Skin no rashes or lesions noted Neuro moves all extremities and no focal motor deficits Psych Activity / Motor Behavior: restless Lab / Micro Data 12/02/23 03:45 12/02/23 03:45 Labs: Laboratory Results - last 24 hr 11/30/23 06:40: Diff Path Review January foll, Sodium 146 H, Potassium 4.3, Chloride 118 H, Carbon Dioxide 20.0 L, Anion Gap 8, BUN 73 H, Creatinine 2.81 H, Estim Creat Clear Calc 31.88, Est GFR (MDRD) Af Amer 29 L, Est GFR (MDRD) Non-Af 24 L, BUN/Creatinine Ratio 26.0 H, Glucose 417 H, Calcium 8.8, Magnesium 3.3 H 11/30/23 06:45: POC Glucose 372 H 11/30/23 12:27: POC Glucose 396 H 11/30/23 16:22: POC Glucose 342 H 11/30/23 23:10: Random Vancomycin 13.2 11/30/23 23:12: POC Glucose 263 H 12/01/23 04:15: WBC 26.4 H, RBC 3.63 L, Hgb 9.4 L, Hct 30.1 L, MCV 82.9, MCH 25.9 L, MCHC 31.2 L, RDW Std Deviation 52.5 H, RDW Coeff of Saman 18.6 H, Plt Count 501 H, MPV 11.5, Neut % (Auto) Not Reportable, Absolute Neuts (auto) 20.6 H, Absolute Lymphs (auto) 1.06, Total Counted 100, Neutrophils % (Manual) 78 H, Lymphocytes % (Manual) 4 L, Monocytes % (Manual) 15 H, Myelocytes % 2 H, Pro myelocytes % 1 H, Diff Path Review May foll, Anisocytosis 3+, Target Cells RARE, [place] Cells 2+, Sodium 152 H, Potassium 5.0, Chloride 122 H, Carbon Dioxide 26.0, Anion Gap 4 L, BUN 74 H, Creatinine 2.58 H, Estim Creat Clear Calc 34.03, Est GFR (MDRD) Af Amer 32 L, Est GFR (MDRD) Non-Af 27 L, BUN/Creatinine Ratio 28.7 H , Glucose 273 H, Calcium 8.9 Micro: Microbiology 11/28/23 13:16 Blood Culture (Wb) - Left Hand Blood Culture - Preliminary No growth in 48 hours. 03/15/24 10:45 Blood Culture (Wb) - Anticubital Right Blood Culture - Final No growth in 5 days. Charges/Coding Visit Charges Inpatient E&M: 19623 Init Hosp L3
--- NOTE | 2023-12-01 08:08 | PCM.RX.CS ---
Consult Antibiotic Management Pharmacy has been consulted to manage selected antibiotic: Vancomycin Type of Intervention Type of Consult: Follow-up Suspected Infection Suspected Infection: Pneumonia Prior Doses of Antibiotics Prior Doses of Antibiotics Received/Current Regimen: Last dose was 750mg on 11.28.23 @0953. Labs Labs: Sodium 152 mmol/L (136-145) H 12/01/23 04:15 Potassium 5.0 mmol/L (3.5-5.1) 12/01/23 04:15 Chloride 122 mmol/L (98-107) H 12/01/23 04:15 Carbon Dioxide 26.0 mmol/L (21.0-32.0) 12/01/23 04:15 Anion Gap 4 (5-15) L 12/01/23 04:15 BUN 74 mg/dL (7-18) H 12/01/23 04:15 Creatinine 2.58 mg/dL (0.70-1.30) H 12/01/23 04:15 Est GFR (MDRD) Af Amer 32 mL/min (>60) L 12/01/23 04:15 Est GFR (MDRD) Non-Af 27 mL/min (>60) L 12/01/23 04:15 BUN/Creatinine Ratio 28.7 RATIO (10-20) H 12/01/23 04:15 Glucose 273 mg/dL (74-106) H 12/01/23 04:15 Vancomycin Trough 26.4 ug/mL (5.0-15.0) H 11/28/23 21:02 Random Vancomycin 13.2 ug/mL (0.0-15.0) 11/30/23 23:10 Microbiology Microbiology: Microbiology 11/28/23 13:16 Blood Culture (Wb) - Left Hand Blood Culture - Preliminary No growth in 48 hours. 11/25/23 10:45 Blood Culture (Wb) - Anticubital Right Blood Culture - Final No growth in 5 days. 11/25/23 10:38 Blood Culture (Wb) - Anticubital Left Blood Culture - Final Meth. resistant Staph. aureus 11/25/23 11:45 Urine, Catheterized Urine Culture - Final Culture exhibits no growth. 11/26/23 11:26 Stool Clostridioides difficile (PCR) - Final 11/25/23 11:40 Mucosa - Nose SARS-CoV-2, Influenza & RSV (PCR) - Final Dosing Weight Weight used for dosin.2 kg Estimated Creatinine Clearance Estimated Creatinine Clearance: 28ml/min Goal Trough Goal Trough: 15-20 mcg/mL Pharmacy Plan for Drug Dosing Pharmacy Plan for Drug Dosing: Random level last night finally below 20 at 13.2. This was ~61 hrs post last dose. Previous levels 26.4, 21.6 and 20.1. Dosing has been held for 3 days since 11.28.23. Renal Cr improved at 2.58 with calculated CrCl of ~28ml/min. In light of levels and renal function, recommend a 1gm dose x 1 today and a repeat random level in 24hrs Pharmacy Service will continue to monitor and adjust dosing as required. Follow-Up Labs Follow-Up Labs: Trough: Other (vanco random level 12.02.23 0830)
[2023-12-01] MEDS: Ferrous Sulfate 325 MG Tablet PO (08:51)
[2023-12-01] MEDS: Haloperidol Lactate 5 MG/ML Vial IV (08:51)
[2023-12-01] MEDS: MEDROXYPROGESTERONE ACETATE 10 MG TABLET PO ×2 (08:52→21:19)
[2023-12-01] MEDS: Heparin Injection (Vial) 5,000 UNIT/ML VIAL 5000 UNIT SC ×2 (08:52→21:19)
[2023-12-01] MEDS: Vancomycin IV 1,000 MG/200 ML BAG 200 MG IV (08:52)
[2023-12-01] MEDS: amLODIPine 5 MG Tablet PO ×2 (08:53→08:54)
[2023-12-01] MEDS: Aspirin E.C. 81 MG Tablet PO (08:53)
[2023-12-01] MEDS: Divalproex Sodium 250 MG Tablet 500 MG PO ×2 (08:55→21:17)
[2023-12-01] MEDS: LORazepam 1 MG Tablet PO (09:03)
[2023-12-01] MEDS: Dextrose 5%-Water (1000mL Bag) 1,000 ML 100 ML IV ×2 (09:04→17:13)
--- NOTE | 2023-12-01 09:29 | CASEMGMT ---
Social Work Pt's brother Umang Chung is his guardian, form placed on chart. EV Portillo
[2023-12-01 09:30] LABS: Pathologist Review Reviewed
[2023-12-01] MEDS: Insulin Glargine-YFGN 100 UNIT/ML Pen 20 UNIT SC ×2 (10:32→21:31)
[2023-12-01] MEDS: Ampicillin/Sulbactam 3 GM in 0.9% Normal Saline (100mL MB+) 100 ML IV ×2 (11:38→21:25)
[2023-12-01] MEDS: Insulin Lispro 100 UNIT/ML INSULN.PEN SC ×3 (11:48→21:31)
--- NOTE | 2023-12-01 12:38 | PCM.PROGNOTE ---
Subjective Subjective Patient seen and examined. He was alert still remains confused and disoriented. He just mumbled in response to questions. He was transferred to the ICU overnight on account of bradycardia with his heart rate going up into the 20s with associated pauses. Size Stamper on board. Unable to do review of systems. Objective Data Objective Data Vital Signs: Vital Signs Temp Pulse Resp BP Pulse Ox O2 Del Method O2 Flow Rate 98.1 F 130 H 16 140/104 H 94 Room Air 2 12/01/23 12:00 12/01/23 12:00 12/01/23 12:00 12/01/23 12:00 12/01/23 12:00 12/01/23 12:00 12/01/23 07:00 Oxygen Flow Rate (L/min) 2 Oxygen Delivery Method Room Air Weight: 223 lb 1.725 oz Body Mass Index (BMI) 32.0 Intake & Output: Intake and Output for Last 24 Hours 11/29/23 11/30/23 12/01/23 23:59 23:59 23:59 Intake Total 1182.33 / 1182.33 1492.83 / 1492.83 312 / 312 Output Total 0 / 0 250 / 250 Balance 1182.33 / 1182.33 1492.83 / 1492.83 62 / 62 Medical Nutrition Assessment Dietitian: Malnutrition Criteria Met Start: 12/01/23 09:36 Freq: Status: Active Protocol: Document 12/01/23 09:36 AG (Rec: 12/01/23 09:36 AG Desktop) Nutrition Malnutrition Evidence of Malnutrition Exists Yes Malnutrition (severe): Acute Illness/Injury Evidenced By Suboptimal Energy Intake ( Severe),Weight Loss (Severe) Intake Problem Inadequate Oral Intake Etiology related to altered mental status, concerns for safe swallowing Signs/Symptoms as evidenced by extended NPO x 6 days Status Active Problem Clinical Problem Acute Disease or Injury Related Malnutrition Etiology severe, acute malnutrition related to inadequate energy intake d/t swallowing difficulties Signs/Symptoms as evidenced by unintentional 4% wt loss < 5 days, PO intake meeting <50% of estimated energy needs x 6 days Status Active Problem Recommendation Dietitian Recommendations/Changes If pt is appropriate for PO nutrition, recommend advance as tolerated to 1800 calorie controlled/cardiac diet, texture/consistency per [employer]. ONS as needed if able to take PO nutrition. Consider enteral nutrition support in next 24-48 hours in view of extended NPO status, acute malnutrition Lab / Micro Data 12/01/23 04:15 12/01/23 04:15 Labs: Laboratory Results - last 24 hr 11/30/23 06:40: Diff Path Review Reviewed 11/30/23 12:27: POC Glucose 396 H 11/30/23 16:22: POC Glucose 342 H 11/30/23 23:10: Random Vancomycin 13.2 11/30/23 23:12: POC Glucose 263 H 12/01/23 04:15: WBC 26.4 H, RBC 3.63 L, Hgb 9.4 L, Hct 30.1 L, MCV 82.9, MCH 25.9 L, MCHC 31.2 L, RDW Std Deviation 52.5 H, RDW Coeff of Saman 18.6 H, Plt Count 501 H, MPV 11.5, Neut % (Auto) Not Reportable, Absolute Neuts (auto) 20.6 H, Absolute Lymphs (auto) 1.06, Total Counted 100, Neutrophils % (Manual) 78 H, Lymphocytes % (Manual) 4 L, Monocytes % (Manual) 15 H, Myelocytes % 2 H, Promyelocytes % 1 H, Diff Path Review May foll, Anisocytosis 3+, Target Cells RARE, Radha Cells 2+, Sodium 152 H, Potassium 5.0, Chloride 122 H, Carbon Dioxide 26.0, Anion Gap 4 L, BUN 74 H, Creatinine 2.58 H, Estim Creat Clear Calc 34.03, Est GFR (MDRD) Af Amer 32 L, Est GFR (MDRD) Non-Af 27 L, BUN/Creatinine Ratio 28.7 H, Glucose 273 H, Calcium 8.9 Micro: Microbiology 11/28/23 13:16 Blood Culture (Wb) - Left Hand Blood Culture - Preliminary No growth in 48 hours. 11/25/23 10:45 Blood Culture (Wb) - Anticubital Right Blood Culture - Final No growth in 5 days. 11/25/23 10:38 Blood Culture (Wb) - Anticubital Left Blood Culture - Final Meth. resistant Staph. aureus 11/25/23 11:45 Urine, Catheterized Urine Culture - Final Culture exhibits no growth. 11/26/23 11:26 Stool Clostridioides difficile (PCR) - Final 11/25/23 11:40 Mucosa - Nose SARS-CoV-2, Influenza & RSV (PCR) - Final Physical Exam Const Constitutional Narrative: lethargic, restless Orientation / Consciousness: confused and lethargic HEENT normocephalic, head/scalp atraumatic, moist oral mucous membranes and oropharynx normal Eyes PERRL and EOMs intact bilaterally Neck no lymphadenopathy and supple Lymph Lymphatic: no lymphadenopathy noted, no lymphedema noted and lymphedema Resp Resp Narrative: diminished breath sounds bilaterally, coarse crackles in all lung bailey. On 2 L of oxygen. Cardio regular rhythm, S1 normal heart sound, S2 normal heart sound and no murmurs Cardio Narrative: tachycardic; alternates between bradycardia and tachycardia GI normal to inspection, nondistended, normoactive bowel sounds, soft to palpation, non-tender and non-distended Extremity normal capillary refill, no clubbing, cyanosis or edema and no calf tenderness General Extremity: no tenderness to palpation of joints or extremities Skin General Skin Exam: no breakdown Neuro Neuro Narrative: Patient lethargic, moves all extremities. Motor Exam: general weakness Psych Psych Narrative: restless, lethargic Assessment & Plan Assessment/Plan (1) Sepsis: (2) Pneumonia: PLAN: Plan #Sepsis due to left MSSA pneumonia with MSSA bacteremia wbc is down to 26 today on IV vancomycin and IV unasyn There is concern for aspiration. Breathing treatments bronchodilators. Titrate oxygen to maintain saturation above 90%. ID on board blood cultures growing Staph aureus. 2D echo showed normal ventricular size with the ventricular systolic function which was normal and stage I diastolic dysfunction and EF of 55%. No evidence of vegetation. #acute encephalopathy Had a seizure like episode during this admission. His eyes rolled back in his head and he had tonic-clonic motions which lasted for a few minutes. Patient given a loading dose of Keppra. seizure precautions neurology consulted: per neuro rec's keppra discontinued. CT brain showed only chronic involutional changes EEG was also normal Ammonia level not elevated. TSH is WNL. To minimize use of benzos, opiates, anticholinergics. #CAD: Has a history of non-STEMI. He did not have a cath in the past because his caregiver refused this. Lasix and losartan held on admission due to low blood pressure. troponins were also elevated 2D echo as above. Guardian refused cath in the past. On Lipitor has been having pauses on his telemetry as well as bradycardia when sleeping. cardiology consulted. metoprolol held. Due to bradycardia #Bradycardia Patient has been bradycardic with heart rate going down to the 20s. he however also however gets tachycardic, with HR going up to the 140s intermittently cardiology on board. Patient not a candidate for pacemaker due to his active MSSA bactremia #JULIETTE on CKD stage III: Creatinine is down to 2.58 today. baseline Cr is ~ 2. Continue gentle hydration and monitor #Hypernatremia: Sodium is 152. Likely due to IV fluid administration. To switch to D5 water and trend sodium. #Hypertension: On metoprolol and Norvasc. Metoprolol held due to bradycardia. #Type 2 diabetes mellitus: Jardiance and metformin on hold. On lantus. Insulin sliding scale. Accuchecks ACHS #Paranoid schizophrenia: depakote and haldol #Hypothyroidism: On Synthroid #Iron deficiency anemia:on oral iron supplementation. Hb today is 10.1 DVT prophylaxis: lovenox, renally dosed. Charges/Coding Visit Charges Inpatient E&M: 83675 Subs Hosp L3
--- NOTE | 2023-12-01 13:00 | CT_ITS ---
STUDY: CT CHEST WITHOUT CONTRAST REASON FOR EXAM: Male, 63 years old. Pneumonia RADIATION DOSAGE (If Supplied By Facility): CTDIvol = ( 17.23 ) mGy, DLP = ( 620.17 ) mGycm TECHNIQUE: Transaxial imaging was performed without the administration of intravenous contrast material. Multiplanar coronal and sagittal images were reformatted. Individualized dose optimization techniques were used for this CT. COMPARISON: Comparison is made with prior chest radiograph dated November 26, 2023. FINDINGS: CHEST Dense consolidation in the left lower lobe. Small left pleural effusion. Minimal right pleural effusion with thick calcified pleural plaques at the left lung base. There is narrowing of the left interlobar bronchus. Mild infiltrate in the posterior aspect of the left upper lobe. There is elevation of the right hemidiaphragm. There are calcifications of the coronary arteries. Normal mediastinum. Normal hilar regions. Normal unenhanced pulmonary arteries. There is atherosclerotic calcification of the aortic arch with tortuosity and elongation of the aortic arch and descending thoracic aorta. There are multi-level degenerative changes of the thoracic spine. There is no demonstrated abnormality of the visualized upper abdomen. CT/Chest without Contrast IMPRESSION: Dense consolidation in the left lower lobe with mild infiltrate in the posterior aspect of the left upper lobe. The left infrahilar mass should be ruled out. Repeat imaging following treatment recommended. Calcified right hilar lymph nodes and calcified right pleural plaques. Mild increased markings at the right lung base. Electronically Signed: Prakash Flowers MD at 14:19 EDT ,
[2023-12-01 13:18] LABS: Bedside Glucose 310 mg/dL (74-106)
--- NOTE | 2023-12-01 14:07 | PCM.PN.ID ---
Physical Exam Narrative Moved to icu, no fever Const Orientation / Consciousness: confused Resp Auscultation: rhonchi Cardio Rate: tachycardic GI soft to palpation, non-tender and non-distended Skin no rashes or lesions noted ID ID: Route of nutrition/ use of supplements: [] Nutritional Intake: [] IV Site: [] Browning Catheter: [] Assessment & Plan Assessment/Plan (1) MRSA bacteremia: PLAN: suspected due to post-flu pneumonia. Cont vanc/unasyn. No veg seen on TTE. Bcx cleared 11/27. Wbc worse today, will check CT chest. Will follow (2) Sepsis:
[2023-12-01 17:28] LABS: Bedside Glucose 283 mg/dL (74-106)
[2023-12-01] MEDS: Haloperidol 1 MG Tablet 2 MG PO (21:17)
[2023-12-01] MEDS: Divalproex Sodium 250 MG Tablet PO (21:17)
[2023-12-01] MEDS: traZODone 100 MG Tablet PO (21:18)
[2023-12-01] MEDS: Atorvastatin Calcium 80 MG Tablet PO (21:19)
[2023-12-01 21:55] LABS: Bedside Glucose 283 mg/dL (74-106)
[2023-12-02] VITALS (8 sets, daily range): BP systolic 123–144; BP diastolic 69–99; PULSE 41–83; RESP 12–23; TEMP 30.2–37.1; O2SAT 94–100; BMI 32.2
[2023-12-02] MEDS: Atropine Sulfate 1 MG/10 ML Syringe IV ×2 (00:02→21:43)
--- NOTE | 2023-12-02 00:06 | NURSING ---
1mg atropine given IVP as per orders for sustaining HR less than 40 bpm, BP 130/76, pt resting comfortably with appropriate respirations and pulse ox.
[2023-12-02] MEDS: 0.9% Normal Saline (250mL Bag) 250 ML 15 ML IV (04:00)
[2023-12-02 04:04] LABS: Hematocrit 29.2 % (40-54); Hemoglobin 9.2 g/dL (13.0-16.5); Mean Corp Hgb Conc 31.5 g/dL (32-36); Mean Corpuscular Hgb 25.9 pg (27.0-32.0); Mean Corpuscular Volume 82.3 fL (80-94); Mean Platelet Vol. 12.6 fl (6.2-12.0); POSITIVE COUNT YES; POSITIVE DIFFERENTIAL YES; POSITIVE MORPHOLOGY YES; Platelet Count 536 K/mm3 (150-450); RBC Distribution Width CV 18.5 % (11.6-14.6); RBC Distribution Width SD 51.7 fl (35.1-43.9); Red Blood Count 3.55 M/mm3 (4.6-6.2); White Blood Count 22.6 K/mm3 (4.4-11.0)
[2023-12-02 04:19] LABS: Anion Gap 3 (5-15); BUN 66 mg/dL (7-18); Calcium,Total 9.2 mg/dL (8.5-10.1); Chloride 123 mmol/L (98-107); Differential Indicated MANUAL DIFF; EST Glomerular Filtration Rate 36 mL/min (>60); Est Glom Filt Rate - Afr Amer 43 mL/min (>60); Glucose 225 mg/dL (74-106); Potassium 3.3 mmol/L (3.5-5.1); Sodium Level 153 mmol/L (136-145)
[2023-12-02 05:00] LABS: Myelocyte 2 % (0-0); Neutrophil-Band 11 % (0-5); Neutrophil-Segmented 63 % (47-70); Total Cells Counted 100 (MANUAL DIFF)
[2023-12-02 05:01] LABS: Eosinophil 1 % (0-5); Lymphocyte 11 % (19-41); Monocyte 10 % (0-10); Promyelocyte 2 % (0-0)
[2023-12-02 05:03] LABS: Anisocytosis 2+; Differential Comment SCANNED; Target Cells 1+
[2023-12-02 05:04] LABS: Absolute Neutrophil Count 16.7 X10^3/uL (2.0-7.7); Burr Cells 2+
[2023-12-02 05:07] LABS: Absolute Lymphocyte Count 2.48 X10^3/uL (0.83-4.51)
[2023-12-02] MEDS: Haloperidol 1 MG Tablet 2 MG PO (05:10)
[2023-12-02] MEDS: Levothyroxine 50 MCG Tablet PO (05:10)
[2023-12-02] MEDS: 0.9% Saline Lock 10 ML Syringe IV ×2 (05:11→21:44)
[2023-12-02] MEDS: Insulin Lispro 100 UNIT/ML INSULN.PEN SC ×4 (07:42→20:51)
[2023-12-02] MEDS: Potassium Chloride 40 MEQ in Dextrose 5%-Water (1000mL Bag) 1,000 ML 125 MEQ IV ×2 (08:13→16:54)
[2023-12-02] MEDS: Insulin Glargine-YFGN 100 UNIT/ML Pen 20 UNIT SC (08:13)
[2023-12-02] MEDS: Haloperidol Lactate 5 MG/ML Vial IV ×2 (08:16→15:40)
[2023-12-02] MEDS: Divalproex Sodium 250 MG Tablet 500 MG PO (08:16)
[2023-12-02] MEDS: Aspirin E.C. 81 MG Tablet PO (08:17)
[2023-12-02] MEDS: Heparin Injection (Vial) 5,000 UNIT/ML VIAL 5000 UNIT SC ×2 (08:29→20:44)
[2023-12-02] MEDS: MEDROXYPROGESTERONE ACETATE 10 MG TABLET PO (08:29)
[2023-12-02 09:30] LABS: Pathologist Review Reviewed
--- NOTE | 2023-12-02 09:42 | CASEMGMT ---
Social Work Pt is not ready for discharge today. SW called [facility], spoke w/Karyna in [employer], let her know pt is not ready, updated her on pt condition. [facility] SW placed green sheet w/transport form on chart in event pt is able to be discharged on the weekend. EV Portillo
[2023-12-02] MEDS: Ampicillin/Sulbactam 3 GM in 0.9% Normal Saline (100mL MB+) 100 ML IV (10:00)
--- NOTE | 2023-12-02 10:15 | CASEMGMT ---
Discharge Planning Updates faxed to [facility] ELIZA Lau. Cassidy Galeano, Discharge Planning Asst.
--- NOTE | 2023-12-02 10:30 | PN_ITS ---
Subjective Subjective Patient seen and examined. He remains restless. Unable to do comprehensive review of systems as patient is confused. He did receive 1 dose of a troponin overnight due to bradycardia down in the 20s and is having more prolonged pauses. Objective Data Objective Data Vital Signs: Vital Signs Temp Pulse Resp BP Pulse Ox O2 Del Method O2 Flow Rate 98.8 F 73 20 H 144/82 H 96 Room Air 2 12/02/23 08:15 12/02/23 08:15 12/02/23 08:15 12/02/23 08:15 12/02/23 08:15 12/02/23 08:15 12/01/23 07:00 Oxygen Flow Rate (L/min) 2 Oxygen Delivery Method Room Air Weight: 224 lb 10.417 oz Body Mass Index (BMI) 32.2 Intake & Output: Intake and Output for Last 24 Hours 11/30/23 12/01/23 12/02/23 23:59 23:59 23:59 Intake Total 1492.83 / 1492.83 1809 / 1809 563 / 563 Output Total 950 / 950 Balance 1492.83 / 1492.83 859 / 859 563 / 563 Medical Nutrition Assessment Dietitian: Malnutrition Criteria Met Start: 12/01/23 09:36 Freq: Status: Active Protocol: Document 12/01/23 09:36 AG (Rec: 12/01/23 09:36 AG Desktop) Nutrition Malnutrition Evidence of Malnutrition Exists Yes Malnutrition (severe): Acute Illness/Injury Evidenced By Suboptimal Energy Intake ( Severe),Weight Loss (Severe) Intake Problem Inadequate Oral Intake Etiology related to altered mental status, concerns for safe swallowing Signs/Symptoms as evidenced by extended NPO x 6 days Status Active Problem Clinical Problem Acute Disease or Injury Related Malnutrition Etiology severe, acute malnutrition related to inadequate energy intake d/t swallowing difficulties Signs/Symptoms as evidenced by unintentional 4% wt loss < 5 days, PO intake meeting <50% of estimated energy needs x 6 days Status Active Problem Recommendation Dietitian Recommendations/Changes If pt is appropriate for PO nutrition, recommend advance as tolerated to 1800 calorie controlled/cardiac diet, texture/consistency per [employer]. ONS as needed if able to take PO nutrition. Consider enteral nutrition support in next 24-48 hours in view of extended NPO status, acute malnutrition Lab / Micro Data 12/02/23 03:45 12/02/23 03:45 Labs: Laboratory Results - last 24 hr 12/01/23 04:15: Diff Path Review Reviewed 12/01/23 11:48: POC Glucose 310 H 12/01/23 17:11: POC Glucose 283 H 12/01/23 21:30: POC Glucose 283 H 12/02/23 03:45: WBC 22.6 H, RBC 3.55 L, Hgb 9.2 L, Hct 29.2 L, MCV 82.3, MCH 25.9 L, MCHC 31.5 L, RDW Std Deviation 51.7 H, RDW Coeff of Saman 18.5 H, Plt Count 536 H, MPV 12.6 H, Neut % (Auto) Not Reportable, Absolute Neuts (auto) 16.7 H, Absolute Lymphs (auto) 2.48, Total Counted 100, Neutrophils % (Manual) 63, Band Neutrophils % 11 H, Lymphocytes % (Manual) 11 L, Monocytes % (Manual) 10, Eosinophils % (Manual) 1, Myelocytes % 2 H, Promyelocytes % 2 H, Differential Comment SCANNED, Diff Path Review May foll, Anisocytosis 2+, Target Cells 1+, Radha Cells 2+, Sodium 153 H, Potassium 3.3 L, Chloride 123 H, Carbon Dioxide 27.0, Anion Gap 3 L, BUN 66 H, Creatinine 2.00 H, Estim Creat Clear Calc 43.90, Est GFR (MDRD) Af Amer 43 L, Est GFR (MDRD) Non-Af 36 L, BUN/Creatinine Ratio 33.0 H, Glucose 225 H, Calcium 9.2 Micro: Microbiology 11/29/23 09:50 Blood Culture (Wb) - Right Hand Blood Culture - Preliminary No growth in 48 hours. 11/28/23 13:16 Blood Culture (Wb) - Left Hand Blood Culture - Preliminary No growth in 48 hours. 11/25/23 10:45 Blood Culture (Wb) - Anticubital Right Blood Culture - Final No growth in 5 days. 11/25/23 10:38 Blood Culture (Wb) - Anticubital Left Blood Culture - Final Meth. resistant Staph. aureus 11/25/23 11:45 Urine, Catheterized Urine Culture - Final Culture exhibits no growth. 11/26/23 11:26 Stool Clostridioides difficile (PCR) - Final 11/25/23 11:40 Mucosa - Nose SARS-CoV-2, Influenza & RSV (PCR) - Final Radiography Diagnostic Testing: Radiology Impression Chest CT 12/01/23 13:00 IMPRESSION: Dense consolidation in the left lower lobe with mild infiltrate in the posterior aspect of the left upper lobe. The left infrahilar mass should be ruled out. Repeat imaging following treatment recommended. Calcified right hilar lymph nodes and calcified right pleural plaques. Mild increased markings at the right lung base. Electronically Signed: Prakash Flowers MD at 14:19 EDT , Physical Exam Const Constitutional Narrative: lethargic, restless Orientation / Consciousness: confused and lethargic HEENT normocephalic, head/scalp atraumatic, moist oral mucous membranes and oropharynx normal Eyes PERRL and EOMs intact bilaterally Neck no lymphadenopathy and supple Lymph Lymphatic: no lymphadenopathy noted, no lymphedema noted and lymphedema Resp Resp Narrative: diminished breath sounds bilaterally, coarse crackles in all lung bailey. On 2 L of oxygen. Cardio regular rate, regular rhythm, S1 normal heart sound, S2 normal heart sound and no murmurs Cardio Narrative: has had intermittent bradycardia down to the 20s. GI normal to inspection, nondistended, normoactive bowel sounds, soft to palpation, non-tender and non-distended Extremity normal capillary refill, no clubbing, cyanosis or edema and no calf tenderness General Extremity: no tenderness to palpation of joints or extremities Skin General Skin Exam: no breakdown Neuro Neuro Narrative: Patient lethargic, moves all extremities. Motor Exam: general weakness Psych Psych Narrative: restless, lethargic Assessment & Plan Assessment/Plan (1) Sepsis: (2) Pneumonia: PLAN: Plan #Sepsis due to left MSSA pneumonia with MSSA bacteremia * wbc is down to 22.6 today * on IV vancomycin and IV unasyn * There is concern for aspiration. * Breathing treatments bronchodilators. Titrate oxygen to maintain saturation above 90%. * ID on board * blood cultures growing Staph aureus. * 2D echo showed normal ventricular size with the ventricular systolic function which was normal and stage I diastolic dysfunction and EF of 55%. No evidence of vegetation. * #acute encephalopathy * Had a seizure like episode during this admission. His eyes rolled back in his head and he had tonic-clonic motions which lasted for a few minutes. * Patient given a loading dose of Keppra. * seizure precautions * neurology consulted: per neuro rec's keppra discontinued. * CT brain showed only chronic involutional changes * EEG was also normal * Ammonia level not elevated. TSH is WNL. To minimize use of benzos, opiates, anticholinergics. * #CAD: * Has a history of non-STEMI. He did not have a cath in the past because his caregiver refused this. * Lasix and losartan held on admission due to low blood pressure. * troponins were also elevated * 2D echo as above. * Guardian refused cath in the past. * On Lipitor * has been having pauses on his telemetry as well as bradycardia when sleeping. cardiology consulted. * metoprolol held. Due to bradycardia * #Bradycardia * Patient has been bradycardic with heart rate going down to the 20s. * he however also however gets tachycardic, with HR going up to the 140s intermittently * cardiology on board. Patient not a candidate for pacemaker due to his active MSSA bactremia * Patient continues to have significant bradycardia with prolonged pauses. Since he cannot have a pacemaker put in in light of his MSSA bacteremia, will call his guardian today to discuss possible change of CODE STATUS. * #JULIETTE on CKD stage III: Creatinine is down to 2.0 today. baseline Cr is ~ 2. Continue gentle hydration and monitor #Hypernatremia: Sodium is 153. Likely due to IV fluid administration. T patient placed on D5 KCl as she is also hypokalemic. #Hypokalemia: Potassium is 3.3. Replace via and trend #Hypertension: On metoprolol and Norvasc. Metoprolol held due to bradycardia. #Type 2 diabetes mellitus: Jardiance and metformin on hold. On lantus. Insulin sliding scale. Accuchecks ACHS #Paranoid schizophrenia: depakote and haldol #Hypothyroidism: On Synthroid #Iron deficiency anemia:on oral iron supplementation. Hb today is 10.1 DVT prophylaxis: lovenox, renally dosed. Disposition: Transfer out of ICU to PCU. Charges/Coding Visit Charges Inpatient E&M: 72474 Subs Hosp L2
[2023-12-02] MEDS: Insulin Glargine-YFGN 100 UNIT/ML Pen SC (10:51)
[2023-12-02] MEDS: LORazepam 2 MG/ML Syringe 1 MG IV ×3 (10:52→20:44)
[2023-12-02 11:32] LABS: Bedside Glucose 219 mg/dL (74-106)
[2023-12-02] MEDS: Ferrous Sulfate 325 MG Tablet PO (11:43)
[2023-12-02 12:52] LABS: Vancomycin, Random Level 13.4 ug/mL (0.0-15.0)
[2023-12-02] MEDS: Haloperidol Lactate 5 MG/ML Vial 2 MG IV ×2 (13:06→20:45)
--- NOTE | 2023-12-02 13:09 | NEURO.PNOTE ---
Assessment and Plan: Neuro Assessment/Plan ERICK DIAZ, is a 63 M with schizophrenia, who presented from intermediate [facility] facility to the hospital 11/24 his skilled facility due to shortness of breath and hypoxia found to have PNA and MRSA Bacteremia with sepsis. He has had worsening mental status while in the hospital thus we were consulted. He also had a seizure like activity of staring off and body stiffening for few seconds in the setting of a coughing episode while being suctioned. S/p Keppra load. rEEG with no epileptic activity MRI brain with no acute findings He is reportedly made improvements by now. Following commands , responds to staff. Per the nursing staff, this is his baseline from the facility. Diagnosis: Toxic metabolic encephalopathy, in the setting of sepsis, PNA, JULIETTE, Delirium, sedative medications (Ativan, Haldol, VPA), Poor baseline Seizure like activity- unsure whether that was a true seizure. Given questionable event with negative EEG/MRI and in the setting of infection, no need to treat with AED. Derlirium Plan: - Treatment of underlying infection per primary team - Recommend Delirium/Dementia Precautions: - Minimize use of benzos, opiates, anticholinergics, as these may worsen mental status - Would use caution with narcotic pain medications - Would still recommend adequately controlling pain, as uncontrolled pain is also a risk factor for delirium - Reinforce sleep hygiene; encourage patient to stay awake during the day to encourage normal sleep cycle. - Keep curtains/blinds open during the day to allow natural light and closed at night. - Would recommend reorienting/redirecting patient as much as possible, - Aim for consistent staffing, familiar objects, avoiding bright lights and loud noises, etc. I personally attended this patient and spent a total time of 45 minutes evaluating this patient including clinical assessment, review of chart, medical history imaging, and determining appropriate treatment and workup. Subject: Neurology Subjective ERICK DIAZ is a 63 year old M, who we are seeing in consultation today for advice on the management of and related patient care. EEG Results Procedure Details EEG Procedure Details: Inpatient routine EEG report performed at [facility] Study start time: 11/28/23 1053 am End Time: 11/28/23 1131 am History: Patient admitted with PNA. Had seizure like activity Indication: Rule out seizures Technical Description: This is a 18-channel digital EEG recording with time-locked video and single-channel electrocardiogram. Electrodes are placed according to the 10 to 20 International System. The patient was monitored continuously by EEG technicians and EEG recording was reviewed intermittently with annotations to the EEG record. Portions of this record are reviewed using bandpass filters of 1 to 70 Hz and sensitivity of 7mV/mm. EEG DESCRIPTION Background: This recording was obtained during awake and sleep state. In the maximally alert state, a posterior dominant rhythm was a symmetric, reactive, well-modulated 8 Hz with a normal frequency-amplitude gradient. There was also an underlying mild generalized slowing seen in the awake state. During drowsiness, there was attenuation of the waking background. Stage II sleep architecture was normal in morphology and distribution. Activation Procedures: Photic stimulation was performed. No epileptic or abnormal activity was triggered by this procedure. Sporadic Epileptiform Discharges: none Focal slow activity: none Rhythmic or Periodic activity: none Seizures: none Patient Events: none EEG DIAGNOSIS: Abnormal, encephalopathy CLINICAL INTERPRETATION This abnormal awake and sleep routine EEG is consistent with mild encephalopathy. No epileptiform discharges or lateralizing signs were seen Objective Data Objective Data Vital Signs: Vital Signs Temp Pulse Resp BP Pulse Ox O2 Del Method O2 Flow Rate 98.8 F 73 20 H 144/82 H 96 Room Air 2 12/02/23 08:15 12/02/23 08:15 12/02/23 08:15 12/02/23 08:15 12/02/23 08:15 12/02/23 08:15 12/01/23 07:00 Oxygen Flow Rate (L/min) 2 Oxygen Delivery Method Room Air Weight: 101.9 kg Body Mass Index (BMI) 32.2 Intake & Output: Intake and Output for Last 24 Hours 11/30/23 12/01/23 12/02/23 23:59 23:59 23:59 Intake Total 1492.83 / 1492.83 1809 / 1809 675 / 675 Output Total 950 / 950 Balance 1492.83 / 1492.83 859 / 859 675 / 675 Medical Nutrition Assessment Dietitian: Malnutrition Criteria Met Start: 12/01/23 09:36 Freq: Status: Active Protocol: Document 12/01/23 09:36 (Rec: 12/01/23 09:36 Desktop) Nutrition Malnutrition Evidence of Malnutrition Exists Yes Malnutrition (severe): Acute Illness/Injury Evidenced By Suboptimal Energy Intake ( Severe),Weight Loss (Severe) Intake Problem Inadequate Oral Intake Etiology related to altered mental status, concerns for safe swallowing Signs/Symptoms as evidenced by extended NPO x 6 days Status Active Problem Clinical Problem Acute Disease or Injury Related Malnutrition Etiology severe, acute malnutrition related to inadequate energy intake d/t swallowing difficulties Signs/Symptoms as evidenced by unintentional 4% wt loss < 5 days, PO intake meeting <50% of estimated energy needs x 6 days Status Active Problem Recommendation Dietitian Recommendations/Changes If pt is appropriate for PO nutrition, recommend advance as tolerated to 1800 calorie controlled/cardiac diet, texture/consistency per CUP[employer]A MELTER. ONS as needed if able to take PO nutrition. Consider enteral nutrition support in next 24-48 hours in view of extended NPO status, acute malnutrition Lab / Micro Data 12/02/23 03:45 12/02/23 03:45 Labs: Laboratory Results - last 24 hr 12/01/23 04:15: Diff Path Review Reviewed 12/01/23 11:48: POC Glucose 310 H 12/01/23 17:11: POC Glucose 283 H 12/01/23 21:30: POC Glucose 283 H 12/02/23 03:45: WBC 22.6 H, RBC 3.55 L, Hgb 9.2 L, Hct 29.2 L, MCV 82.3, MCH 25.9 L, MCHC 31.5 L, RDW Std Deviation 51.7 H, RDW Coeff of Saman 18.5 H, Plt Count 536 H, MPV 12.6 H, Neut % (Auto) Not Reportable, Absolute Neuts (auto) 16.7 H, Absolute Lymphs (auto) 2.48, Total Counted 100, Neutrophils % (Manual) 63, Band Neutrophils % 11 H, Lymphocytes % (Manual) 11 L, Monocytes % (Manual) 10, Eosinophils % (Manual) 1, Myelocytes % 2 H, Promyelocytes % 2 H, Differential Comment SCANNED, Diff Path Review May foll, Anisocytosis 2+, Target Cells 1+, [place] Cells 2+, Sodium 153 H, Potassium 3.3 L, Chloride 123 H, Carbon Dioxide 27.0, Anion Gap 3 L, BUN 66 H, Creatinine 2.00 H, Estim Creat Clear Calc 43.90, Est GFR (MDRD) Af Amer 43 L, Est GFR (MDRD) Non-Af 36 L, BUN/Creatinine Ratio 33.0 H, Glucose 225 H, Calcium 9.2 12/02/23 11:15: POC Glucose 219 H 12/02/23 12:00: Random Vancomycin 13.4 Micro: Microbiology 11/29/23 09:50 Blood Culture (Wb) - Right Hand Blood Culture - Preliminary No growth in 48 hours. 11/28/23 13:16 Blood Culture (Wb) - Left Hand Blood Culture - Preliminary No growth in 48 hours. 11/25/23 10:45 Blood Culture (Wb) - Anticubital Right Blood Culture - Final No growth in 5 days. 11/25/23 10:38 Blood Culture (Wb) - Anticubital Left Blood Culture - Final Meth. resistant Staph. aureus 11/25/23 11:45 Urine, Catheterized Urine Culture - Final Culture exhibits no growth. 11/26/23 11:26 Stool Clostridioides difficile (PCR) - Final 11/25/23 11:40 Mucosa - Nose SARS-CoV-2, Influenza & RSV (PCR) - Final Radiography Diagnostic Testing: Radiology Impression Chest CT 12/01/23 13:00 IMPRESSION: Dense consolidation in the left lower lobe with mild infiltrate in the posterior aspect of the left upper lobe. The left infrahilar mass should be ruled out. Repeat imaging following treatment recommended. Calcified right hilar lymph nodes and calcified right pleural plaques. Mild increased markings at the right lung base. Electronically Signed: Prakash Flowers MD at 14:19 EDT , Physical Exam Narrative Patient lying in bed, moving all extremities antigravity, no interactive, he just received Haldol injection prior to me evaluating him.
[2023-12-02] MEDS: Ketorolac 15 MG/ML Vial IV (13:29)
--- NOTE | 2023-12-02 13:31 | PCM.RX.CS ---
Consult Antibiotic Management Pharmacy has been consulted to manage selected antibiotic: Vancomycin Type of Intervention Type of Consult: Follow-up Suspected Infection Suspected Infection: Bacteremia Prior Doses of Antibiotics Prior Doses of Antibiotics Received/Current Regimen: Vancomycin 1000 mg x1 12/01/23 @ 0852 Labs Labs: Sodium 153 mmol/L (136-145) H 12/02/23 03:45 Potassium 3.3 mmol/L (3.5-5.1) L 12/02/23 03:45 Chloride 123 mmol/L (98-107) H 12/02/23 03:45 Carbon Dioxide 27.0 mmol/L (21.0-32.0) 12/02/23 03:45 Anion Gap 3 (5-15) L 12/02/23 03:45 BUN 66 mg/dL (7-18) H 12/02/23 03:45 Creatinine 2.00 mg/dL (0.70-1.30) H 12/02/23 03:45 Est GFR (MDRD) Af Amer 43 mL/min (>60) L 12/02/23 03:45 Est GFR (MDRD) Non-Af 36 mL/min (>60) L 12/02/23 03:45 BUN/Creatinine Ratio 33.0 RATIO (10-20) H 12/02/23 03:45 Glucose 225 mg/dL (74-106) H 12/02/23 03:45 Vancomycin Trough 26.4 ug/mL (5.0-15.0) H 11/28/23 21:02 Random Vancomycin 13.4 ug/mL (0.0-15.0) 12/02/23 12:00 Microbiology Microbiology: Microbiology 11/29/23 09:50 Blood Culture (Wb) - Right Hand Blood Culture - Preliminary No growth in 48 hours. 11/28/23 13:16 Blood Culture (Wb) - Left Hand Blood Culture - Preliminary No growth in 48 hours. 11/25/23 10:45 Blood Culture (Wb) - Anticubital Right Blood Culture - Final No growth in 5 days. 11/25/23 10:38 Blood Culture (Wb) - Anticubital Left Blood Culture - Final Meth. resistant Staph. aureus 11/25/23 11:45 Urine, Catheterized Urine Culture - Final Culture exhibits no growth. 11/26/23 11:26 Stool Clostridioides difficile (PCR) - Final 11/25/23 11:40 Mucosa - Nose SARS-CoV-2, Influenza & RSV (PCR) - Final Dosing Weight Weight used for dosin kg Estimated Creatinine Clearance Estimated Creatinine Clearance: ~44 Goal Trough Goal Trough: 15-20 mcg/mL Pharmacy Plan for Drug Dosing Pharmacy Plan for Drug Dosing: Random level draw 27 hours after previous 1000 mg dose was 13.4. Due to trough being late will begin 1000 mg Q24H dosing with a trough before the 3rd dose of this new regimen. Pharmacy Service will continue to monitor and adjust dosing as required. Follow-Up Labs Follow-Up Labs: Trough: Vancomycin Date/Time Labs Ordered Labs to be done on [date and time ordered]: 12/04/23 @ 1300
[2023-12-02] MEDS: Vancomycin IV 1,000 MG/200 ML BAG 200 MG IV (13:32)
--- NOTE | 2023-12-02 14:54 | PCM.PN.ID ---
Physical Exam Narrative Sleeping, no fever Const no apparent distress Resp Auscultation: rhonchi Cardio regular rate and regular rhythm GI soft to palpation, non-tender and non-distended Skin no rashes or lesions noted ID ID: Route of nutrition/ use of supplements: [] Nutritional Intake: [] IV Site: [] Browning Catheter: [] Assessment & Plan Assessment/Plan (1) MRSA bacteremia: PLAN: suspected due to post-flu pneumonia. Cont vanc, will stop unasyn. No veg seen on TTE. Bcx cleared 11/27. Wbc better today. CT chest done. Will follow (2) Sepsis:
[2023-12-02 16:08] LABS: Bedside Glucose 231 mg/dL (74-106)
[2023-12-02] MEDS: Insulin Glargine-YFGN 100 UNIT/ML Pen 25 UNIT SC (20:51)
[2023-12-02 21:11] LABS: Bedside Glucose 242 mg/dL (74-106)
--- NOTE | 2023-12-02 21:53 | NURSING ---
Heart rate frequently dropping to 25-29 and sustaining there for periods of time. PRN atropine 1 mg IVP given, HR now in the 70-80s.
[2023-12-03] VITALS (52 sets, daily range): BP systolic 58–204; BP diastolic 42–84; PULSE 49–140; RESP 14–42; TEMP 32.2–37.1; O2SAT 83–100; BMI 32.5
[2023-12-03] MEDS: Potassium Chloride 40 MEQ in Dextrose 5%-Water (1000mL Bag) 1,000 ML 125 MEQ IV (00:39)
[2023-12-03] MEDS: Haloperidol Lactate 5 MG/ML Vial IV (02:13)
[2023-12-03] MEDS: LORazepam 2 MG/ML Syringe 1 MG IV (02:13)
[2023-12-03 03:40] LABS: Absolute Lymphocyte Count 1.03 X10^3/uL (0.83-4.51); Basophil# 0.04 X10^3/uL; Basophil% 0.3 % (0-1); Eosinophils% 1.3 % (0-5); Hematocrit 27.7 % (40-54); Hemoglobin 8.8 g/dL (13.0-16.5); Lymphocyte # 1.03 X10^3/ul (0.83-4.51); Lymphocyte % 6.5 % (19-41); Mean Corp Hgb Conc 31.8 g/dL (32-36); Mean Corpuscular Hgb 25.7 pg (27.0-32.0); Mean Corpuscular Volume 80.8 fL (80-94); Mean Platelet Vol. 12.7 fl (6.2-12.0); Monocyte# 1.06 X10^3/uL; Monocyte% 6.7 % (0-10); NRBC Flagged by Analyzer 1.9 % (0-5); Neutrophil % 75.3 % (47-70); POSITIVE COUNT YES; POSITIVE MORPHOLOGY YES; Platelet Count 228 K/mm3 (150-450); RBC Distribution Width CV 19.3 % (11.6-14.6); RBC Distribution Width SD 51.8 fl (35.1-43.9); Red Blood Count 3.43 M/mm3 (4.6-6.2); White Blood Count 15.9 K/mm3 (4.4-11.0)
[2023-12-03 03:49] LABS: Differential Indicated SCAN CRITERIA MET
[2023-12-03 04:06] LABS: Acanthocytes 2+; Anisocytosis 3+
[2023-12-03 04:09] LABS: Ovalocyte 2+
[2023-12-03 04:11] LABS: Anion Gap 2 (5-15); BUN 59 mg/dL (7-18); BUN/Creat Ratio 32.8 RATIO (10-20); Calcium,Total 8.7 mg/dL (8.5-10.1); Chloride 124 mmol/L (98-107); EST Glomerular Filtration Rate 40 mL/min (>60); Est Glom Filt Rate - Afr Amer 49 mL/min (>60); Estimated Creatinine Clearance 48.94 ml/min; Glucose 249 mg/dL (74-106); Potassium 5.3 mmol/L (3.5-5.1); Sodium Level 152 mmol/L (136-145)
[2023-12-03] MEDS: Haloperidol Lactate 5 MG/ML Vial 2 MG IV (04:42)
[2023-12-03] MEDS: Dextrose 5%-Water (1000mL Bag) 1,000 ML 125 ML IV (04:42)
[2023-12-03] MEDS: Insulin Lispro 100 UNIT/ML INSULN.PEN SC ×4 (09:17→21:18)
[2023-12-03] MEDS: Furosemide 40 MG/4 ML Vial IV (09:18)
[2023-12-03] MEDS: Sodium Polystyrene Sulfonate 15 GM/60 ML UDC 30 GM RC (09:48)
[2023-12-03 10:15] LABS: Bedside Glucose 201 mg/dL (74-106)
[2023-12-03 10:17] LABS: Allen Test Positive; Base Excess -3 mmol/L (-2 to +2); Bicarbonate 25.9 mmol/L (22-26); Blood Gas Specimen Type ART; Mode Not entered; O2 Delivery Device Cannula; PO2 85 mmHG (75-100); SITE L Brach; SO2 93 % (95-99); Time Given 10:15:40; Total Carbon Dioxide 28 mmol/L; pCO2 71.2 mmHg (35-45); pH 7.17 (7.35-7.45)
--- NOTE | 2023-12-03 10:47 | CPS ---
Originally placed pt on BIPAP 16/8 45% but his TV's were low to mid 200's and RR remained in low 40's. Switched to AVAPS which helped his TV and brought RR into 20-high 30's. He desatted to 86% when this RT was charting and O2 had to be increased to 80% to get SpO2 into 90's. RN aware.
[2023-12-03] MEDS: Heparin Injection (Vial) 5,000 UNIT/ML VIAL 5000 UNIT SC ×2 (12:01→21:13)
[2023-12-03 12:28] LABS: Bedside Glucose 163 mg/dL (74-106)
[2023-12-03 12:55] LABS: Allen Test Positive; Base Excess -2 mmol/L (-2 to +2); Bicarbonate 26.4 mmol/L (22-26); Blood Gas Specimen Type ART; Mode BIVENT; O2 Delivery Device BiPAP; PO2 116 mmHG (75-100); RR 14; SITE R Brach; SO2 97 % (95-99); Time Given 11:37:49; Total Carbon Dioxide 29 mmol/L; pCO2 73.2 mmHg (35-45); pH 7.16 (7.35-7.45)
[2023-12-03 13:02] LABS: Allen Test Positive; Base Excess -1 mmol/L (-2 to +2); Bicarbonate 26.9 mmol/L (22-26); Blood Gas Specimen Type ART; Mode BiLevel; O2 Delivery Device BiPAP; PO2 31 mmHG (75-100); RR 14; SITE L Brach; SO2 47 % (95-99); Time Given 13:00:07; Total Carbon Dioxide 29 mmol/L; pCO2 63.1 mmHg (35-45); pH 7.24 (7.35-7.45)
--- NOTE | 2023-12-03 13:18 | CPS ---
Mixed gas was drawn when obtaining ABG, Dr Glover doesn't want a redraw as the PH & CO2 are what we are concerned with and those have improved. Will wean O2 as tolerated and keep on BIPAP, pt is starting to move in bed where he had not reacted to painful stimuli earlier in the day.
--- NOTE | 2023-12-03 13:35 | RAD_ITS ---
EXAM: XR CHEST, 1 VIEW CLINICAL INDICATION: Respiratory Failure TECHNIQUE: Frontal view of the chest. COMPARISON: 11/26/2023. FINDINGS: LUNGS AND PLEURAL SPACES: Increasing consolidation in the left lower lobe. No pneumothorax. No effusion. HEART: Unremarkable. Cardiac silhouette not enlarged. MEDIASTINUM: Central airways and mediastinal contour are unremarkable. BONES/JOINTS: Unremarkable. No acute fracture. SOFT TISSUES: Unremarkable. RAD/Chest 1 View (Portable) IMPRESSION: Worsening of pneumonia in the left lower lobe. Electronically Signed: Efrain Dowd MD at 14:21 EDT ,
[2023-12-03] MEDS: Dextrose 5%-Water (1000mL Bag) 1,000 ML 75 ML IV (13:38)
[2023-12-03] MEDS: Vancomycin IV 1,000 MG/200 ML BAG 200 MG IV (13:42)
--- NOTE | 2023-12-03 14:13 | PN_ITS ---
Subjective Subjective Patient seen and examined. He is quite lethargic. He is tachypneic and tachycardic. Patient on BiPAP. Unable to do review of systems as he is very lethargic. He is noted to have minimal urine output as well. Objective Data Objective Data Vital Signs: Vital Signs Temp Pulse Resp BP Pulse Ox O2 Del Method O2 Flow Rate 97.5 F L 107 H 38 H 126/84 H 95 Bi-pap 5 12/03/23 14:00 12/03/23 14:00 12/03/23 14:00 12/03/23 14:00 12/03/23 14:00 12/03/23 14:00 12/03/23 10:00 FiO2 40 12/03/23 14:00 Oxygen Flow Rate (L/min) 5 Oxygen Delivery Method Bi-pap Weight: 226 lb 6.636 oz Body Mass Index (BMI) 32.5 Intake & Output: Intake and Output for Last 24 Hours 12/01/23 12/02/23 12/03/23 23:59 23:59 23:59 Intake Total 1809 / 1809 2145 / 2145 2022.08 / 202.08 Output Total 950 / 950 915 / 915 Balance 859 / 859 2145 / 1345 1107.08 / 1107.08 Medical Nutrition Assessment Dietitian: Malnutrition Criteria Met Start: 12/01/23 09:36 Freq: Status: Active Protocol: Document 12/01/23 09:36 AG (Rec: 12/01/23 09:36 AG Desktop) Nutrition Malnutrition Evidence of Malnutrition Exists Yes Malnutrition (severe): Acute Illness/Injury Evidenced By Suboptimal Energy Intake ( Severe),Weight Loss (Severe) Intake Problem Inadequate Oral Intake Etiology related to altered mental status, concerns for safe swallowing Signs/Symptoms as evidenced by extended NPO x 6 days Status Active Problem Clinical Problem Acute Disease or Injury Related Malnutrition Etiology severe, acute malnutrition related to inadequate energy intake d/t swallowing difficulties Signs/Symptoms as evidenced by unintentional 4% wt loss < 5 days, PO intake meeting <50% of estimated energy needs x 6 days Status Active Problem Recommendation Dietitian Recommendations/Changes If pt is appropriate for PO nutrition, recommend advance as tolerated to 1800 calorie controlled/cardiac diet, texture/consistency per REFRIGERATION INSTALLER. ONS as needed if able to take PO nutrition. Consider enteral nutrition support in next 24-48 hours in view of extended NPO status, acute malnutrition Lab / Micro Data 12/03/23 03:25 12/03/23 03:25 Labs: Laboratory Results - last 24 hr 12/02/23 15:38: POC Glucose 231 H 12/02/23 20:50: POC Glucose 242 H 12/03/23 03:25: WBC 15.9 H, RBC 3.43 L, Hgb 8.8 L, Hct 27.7 L, MCV 80.8, MCH 25.7 L, MCHC 31.8 L, RDW Std Deviation 51.8 H, RDW Coeff of Saman 19.3 H, Plt Count 228, MPV 12.7 H, Immature Gran % (Auto) 9.900 H, Neut % (Auto) 75.3 H, Lymph % (Auto) 6.5 L, [place] % (Auto) 6.7, Eos % (Auto) 1.3, Baso % (Auto) 0.3, Absolute Neuts (auto) 12.0 H, Absolute Lymphs (auto) 1.03, Nucleated RBC % 1.9, Diff Path Review May foll, Anisocytosis 3+, Ovalocytes 2+, Acanthocytes (Spur) 2+, Sodium 152 H, Potassium 5.3 H, Chloride 124 H, Carbon Dioxide 26.0, Anion Gap 2 L, BUN 59 H, Creatinine 1.80 H, Estim Creat Clear Calc 48.94, Est GFR (MDRD) Af Amer 49 L, Est GFR (MDRD) Non-Af 40 L, BUN/Creatinine Ratio 32.8 H, Glucose 249 H, Calcium 8.7 12/03/23 09:16: POC Glucose 201 H 12/03/23 12:00: POC Glucose 163 H Micro: Microbiology 11/28/23 13:16 Blood Culture (Wb) - Left Hand Blood Culture - Final No growth in 5 days. 11/29/23 09:50 Blood Culture (Wb) - Right Hand Blood Culture - Preliminary No growth in 48 hours. 11/25/23 10:45 Blood Culture (Wb) - Anticubital Right Blood Culture - Final No growth in 5 days. 11/25/23 10:38 Blood Culture (Wb) - Anticubital Left Blood Culture - Final Meth. resistant Staph. aureus 11/25/23 11:45 Urine, Catheterized Urine Culture - Final Culture exhibits no growth. 11/26/23 11:26 Stool Clostridioides difficile (PCR) - Final 11/25/23 11:40 Mucosa - Nose SARS-CoV-2, Influenza & RSV (PCR) - Final ABG Data ABG results: ABG 12/03/23 12/03/23 12/03/23 10:11 11:36 12:57 Specimen Type ART ART ART Sample Site L Brach R Brach L Brach pH 7.17 L* 7.16 L* 7.24 L Bicarbonate Actual 25.9 26.4 H 26.9 H Total CO2 28 29 29 Base Excess -3 L -2 -1 O2 Saturation 93 L 97 47 L O2 % 6.0 80.0 40.0 ABG pCO2 71.2 H* 73.2 H* 63.1 H ABG pO2 85 116 H 31 L* Polo Test Positive Positive Positive Respiration Rate 14 14 O2 Delivery Device Cannula BiPAP BiPAP Vent Mode Not entered BIVENT BiLevel Tidal Volume 400.0 400.0 Crit Call To/Read Back Yes Yes Yes Blood Gas Notified Whom kusum noe Blood Gas Notified Time 10:15:40 11:37:49 13:00:07 Clinical Comments Physical Exam Const Constitutional Narrative: lethargic, minimally responsive Orientation / Consciousness: lethargic HEENT normocephalic, head/scalp atraumatic, moist oral mucous membranes and oropharynx normal Eyes PERRL and EOMs intact bilaterally Neck no lymphadenopathy and supple Lymph Lymphatic: no lymphadenopathy noted, no lymphedema noted and lymphedema Resp Resp Narrative: diminished breath sounds bilaterally, coarse crackles in all lung bailey. On BiPAP Cardio regular rate, regular rhythm, S1 normal heart sound, S2 normal heart sound and no murmurs Cardio Narrative: has had intermittent bradycardia down to the 20s. GI normal to inspection, nondistended, normoactive bowel sounds, soft to palpation, non-tender and non-distended Extremity normal capillary refill, no clubbing, cyanosis or edema and no calf tenderness General Extremity: no tenderness to palpation of joints or extremities Skin General Skin Exam: no breakdown Neuro Neuro Narrative: Patient lethargic, minimally responsive Motor Exam: general weakness Psych Psych Narrative: restless, lethargic Assessment & Plan Assessment/Plan (1) Sepsis: (2) Pneumonia: PLAN: Plan #Sepsis due to left MSSA pneumonia with MSSA bacteremia * wbc is further down to 15.9 today * on IV vancomycin and IV unasyn * There is concern for aspiration. * Breathing treatments bronchodilators. Titrate oxygen to maintain saturation above 90%. * ID on board * blood cultures growing Staph aureus. * 2D echo showed normal ventricular size with the ventricular systolic function which was normal and stage I diastolic dysfunction and EF of 55%. No evidence of vegetation. * #acute encephalopathy * Had a seizure like episode during this admission. His eyes rolled back in his head and he had tonic-clonic motions which lasted for a few minutes. * Patient given a loading dose of Keppra. * seizure precautions * neurology consulted: per neuro rec's keppra discontinued. * CT brain showed only chronic involutional changes * EEG was also normal * Ammonia level not elevated. TSH is WNL. To minimize use of benzos, opiates, anticholinergics. * #Acute hypoxic respiratory failure likely due to aspiration pneumonia and fluid overload * now requiring BIPAP * ABG done showed hypoxia and hypercapnia. He was placed on BiPAP * remains tachypneic And also tachycardic. * Critical care on board. Breathing treatments bronchodilators. Titrate oxygen to maintain saturation above 90%. * He remains on IV vancomycin and Zosyn and white cell counts are trending downwards. * Will also try diuresing with IV Lasix to help as he has minimal urine output. * #CAD: * Has a history of non-STEMI. He did not have a cath in the past because his caregiver refused this. * Lasix and losartan held on admission due to low blood pressure. * troponins were also elevated * 2D echo as above. * Guardian refused cath in the past. * On Lipitor * has been having pauses on his telemetry as well as bradycardia when sleeping. cardiology consulted. * metoprolol held. Due to bradycardia * #Bradycardia * Patient has been bradycardic with heart rate going down to the 20s. * he however also however gets tachycardic, with HR going up to the 140s intermittently * cardiology on board. Patient not a candidate for pacemaker due to his active MSSA bactremia * Patient continues to have significant bradycardia with prolonged pauses. Since he cannot have a pacemaker put in in light of his MSSA bacteremia, will call his guardian to discuss possible change of CODE STATUS. Patient's legal guardian Umang Chung ([phone]) called and on the phone and updated by phone. His legal guardian wishes for patient to remain full code for now. * #JULIETTE on CKD stage III: Creatinine is further down to 1.8 today. baseline Cr is ~ 2. Continue gentle hydration and monitor #Hypernatremia: Sodium is 152 today. Continue D5 water and trend sodium. #[place]: Potassium is 5.3 today. Will give Kayexalate and hold all potassium sparing medications. #Hypertension: On metoprolol and Norvasc. Metoprolol held due to bradycardia. #Type 2 diabetes mellitus: Jardiance and metformin on hold. On lantus. Insulin sliding scale. Accuchecks ACHS #Paranoid schizophrenia: depakote and haldol #Hypothyroidism: On Synthroid #Iron deficiency anemia:on oral iron supplementation. Hb today is 10.1 DVT prophylaxis: lovenox, renally dosed. Disposition: Patient switched back to ICU status due to the deterioration in his status. Charges/Coding Visit Charges Inpatient E&M: 34138 Subs Hosp L3
[2023-12-03] MEDS: Etomidate 20 MG/10 ML Vial IV (16:05)
--- NOTE | 2023-12-03 16:07 | PCM.PN.TICU ---
Objective Data Objective Data Vital Signs: Vital Signs Last response Temperature 36.4 C L 12/03/23 14:00 Temperature Source Core 12/03/23 14:00 Pulse Rate 85 12/03/23 15:00 Pulse Strength Weak (1+) 12/03/23 10:00 Respiratory Rate 32 H 12/03/23 15:00 Respiratory Effort Normal, Non-Labored 12/03/23 12:00 Respiratory Depth Normal 12/03/23 12:00 Respiratory Pattern Irregular 12/03/23 14:50 Blood Pressure 131/62 H 12/03/23 15:00 Blood Pressure Mean 85 12/03/23 15:00 Blood Pressure Source Monitor 12/03/23 15:00 Blood Pressure Position Semi-Fowlers 12/03/23 15:00 Blood Pressure Location Right Arm 12/03/23 15:00 Pulse Ox 91 12/03/23 15:00 Oxygen Delivery Method Bi-pap 12/03/23 15:00 Oxygen Flow Rate (L/min) 5 12/03/23 10:00 Fraction of Inspired Oxygen (FIO2) 35 12/03/23 15:00 I&O: I&O Last 24 Hours 12/02/23 12/03/23 12/03/23 23:59 11:59 23:59 Intake Total 1470 / 2145 2008.33 / 2222.08 213.75 / 2222.08 Output Total 915 / 915 Balance 1470 / 1345 1093.33 / 1307.08 213.75 / 1307.08 I&O: Total Stay 11/25/23 10:09 thru 12/03/23 14:53 Intake Total 21753.74 Output Total 2066 Balance 95680.74 Current Meds Ordered / Administered: Current meds ordered / Administered Generic Name Dose Route Start Last Admin Trade Name Freq PRN Reason Stop Dose Admin Acetaminophen 650 mg 11/25/23 15:29 Acetaminophen 325 Mg Tablet PO Q4H PRN fever or pain 1-06/21 Albuterol Sulfate 0.63 mg 11/25/23 16:18 Albuterol 2.5 Mg/3 Ml Vial.Neb. INHALATION Q4H PRN shortness of breath or wheezing Amlodipine Besylate 5 mg 11/26/23 10:00 12/03/23 09:06 Amlodipine 5 Mg Tablet PO Not Given DAILY WILLIAM Protocol Aspirin 81 mg 11/26/23 08:00 12/03/23 09:06 Aspirin E.C. 81 Mg Tablet PO Not Given DAILYCM [facility] Atorvastatin Calcium 80 mg 11/25/23 22:00 12/02/23 21:27 Atorvastatin Calcium 80 Mg Tablet PO Not Given QHS WILLIAM Atropine Sulfate 1 mg 11/30/23 21:50 12/02/23 21:43 Atropine Sulfate 1 Mg/10 Ml Syringe IV 1 mg PRN PRN Administration HR< 40bpm, unstable VS/symptom Dextrose 0 gm 11/25/23 15:29 Dextrose 50%-Water 25 Gm/50 Ml Disp.Syrin IV X1 PRN HYPOGLYCEMIA Protocol Divalproex Sodium 250 mg 11/25/23 22:00 12/02/23 20:45 Divalproex Sodium 250 Mg Tablet PO Not Given QHS [facility] Divalproex Sodium 500 mg 11/25/23 22:00 12/03/23 09:06 Divalproex Sodium 250 Mg Tablet PO Not Given BID WILLIAM Ferrous Sulfate 325 mg 11/26/23 12:00 12/03/23 10:42 Ferrous Sulfate 325 Mg Tablet PO Not Given LUNCH [facility] Furosemide 40 mg 12/03/23 09:03 12/03/23 09:18 Furosemide 40 Mg/4 Ml Vial IV 40 mg BIDLX WILLIAM Administration Protocol Glucagon 1 mg 11/25/23 15:29 Glucagon 1 Mg/Ml Syringe IM X1 PRN HYPOGLYCEMIA Haloperidol 5 mg 11/25/23 15:29 11/29/23 11:04 Haloperidol 5 Mg Tablet PO 5 mg Q6H PRN Administration AGITATION Protocol Haloperidol Lactate 5 mg 12/01/23 01:56 12/03/23 02:13 Haloperidol Lactate 5 Mg/Ml Vial IV 5 mg Q6H PRN PRN Administration SEVERE AGITATION Protocol Heparin Sodium (Porcine) 5,000 unit 11/25/23 22:00 12/03/23 12:01 Heparin Injection (Vial) 5,000 Unit/Ml Vial SC 5,000 unit Q12 WILLIAM Administration Sodium Chloride 250 mls @ 15 mls/hr 11/25/23 15:45 12/02/23 20:55 IV Infused .[id number] PRN Infusion Additional IVPB Infusion Sodium Chloride 250 mls @ 15 mls/hr 11/25/23 15:45 IV .[id number] PRN Saline Flush Vancomycin IV-PHARMACY TO DOSE 500 mls @ 250 mls/hr 11/27/23 07:55 1 each/ Sodium Chloride IV PRN PRN Rx to Dose Protocol Vancomycin HCl 1,000 mg in 200 mls @ 200 mls/hr 12/02/23 13:30 12/03/23 14:53 Vancomycin IV Infused Q24H [facility] Infusion Dextrose 1,000 mls @ 75 mls/hr 12/03/23 13:15 12/03/23 14:53 IV 75 mls/hr .[id number] [facility] Infusion Insulin Glargine 25 unit 12/02/23 22:00 12/03/23 12:01 Insulin Glargine-Yfgn 100 Unit/Ml Pen SC Not Given BID [facility] Insulin Human Lispro 0 unit 11/25/23 16:00 12/03/23 12:01 Insulin Lispro 100 Unit/Ml Insuln.Pen SC 2 u ACHS [facility] Administration Protocol Ketorolac Tromethamine 15 mg 11/28/23 23:54 12/02/23 13:29 Ketorolac 15 Mg/Ml Vial IV 12/03/23 23:54 15 mg Q6H PRN PRN Administration Pain Score 1-10 Levothyroxine Sodium 50 mcg 11/26/23 06:00 12/03/23 04:28 Levothyroxine 50 Mcg Tablet PO Not Given DAILY@0600 [facility] Lorazepam 1 mg 11/25/23 15:29 11/29/23 14:24 Lorazepam 1 Mg Tablet PO 1 mg Q6H PRN Administration AGITATION Lorazepam 1 mg 12/01/23 01:56 12/03/23 02:13 Lorazepam 2 Mg/Ml Syringe IV 1 mg Q6H PRN PRN Administration SEVERE AGITATION Medroxyprogesterone Acetate 10 mg 11/25/23 22:00 12/03/23 09:06 Medroxyprogesterone Acetate 10 Mg Tablet PO Not Given BID [facility] Sodium Chloride 10 - 40 ml 11/25/23 15:45 12/02/23 21:44 0.9% Saline Lock 10 Ml Syringe IV 10 ml UD PRN Administration SALINE FLUSH Trazodone HCl 100 mg 11/25/23 22:00 12/02/23 20:45 Trazodone 100 Mg Tablet PO Not Given QHS [facility] Vancomycin Protocol 1 lab 12/04/23 11:00 Vancomycin Trough/Random Due MC 12/04/23 15:00 DAILY [facility] Medical Records Data Medical Nutrition Assessment Dietitian: Malnutrition Criteria Met Start: 12/01/23 09:36 Freq: Status: Active Protocol: Document 12/01/23 09:36 AG (Rec: 12/01/23 09:36 AG Desktop) Nutrition Malnutrition Evidence of Malnutrition Exists Yes Malnutrition (severe): Acute Illness/Injury Evidenced By Suboptimal Energy Intake ( Severe),Weight Loss (Severe) Intake Problem Inadequate Oral Intake Etiology related to altered mental status, concerns for safe swallowing Signs/Symptoms as evidenced by extended NPO x 6 days Status Active Problem Clinical Problem Acute Disease or Injury Related Malnutrition Etiology severe, acute malnutrition related to inadequate energy intake d/t swallowing difficulties Signs/Symptoms as evidenced by unintentional 4% wt loss < 5 days, PO intake meeting <50% of estimated energy needs x 6 days Status Active Problem Recommendation Dietitian Recommendations/Changes If pt is appropriate for PO nutrition, recommend advance as tolerated to 1800 calorie controlled/cardiac diet, texture/consistency per SENIOR MORTGAGE LOAN PROCESSOR. ONS as needed if able to take PO nutrition. Consider enteral nutrition support in next 24-48 hours in view of extended NPO status, acute malnutrition Lab / Micro Data 12/03/23 03:25 12/03/23 03:25 Labs: Laboratory Results - last 24 hr 12/02/23 15:38: POC Glucose 231 H 12/02/23 20:50: POC Glucose 242 H 12/03/23 03:25: WBC 15.9 H, RBC 3.43 L, Hgb 8.8 L, Hct 27.7 L, MCV 80.8, MCH 25.7 L, MCHC 31.8 L, RDW Std Deviation 51.8 H, RDW Coeff of Saman 19.3 H, Plt Count 228, MPV 12.7 H, Immature Gran % (Auto) 9.900 H, Neut % (Auto) 75.3 H, Lymph % (Auto) 6.5 L, [place] % (Auto) 6.7, Eos % (Auto) 1.3, Baso % (Auto) 0.3, Absolute Neuts (auto) 12.0 H, Absolute Lymphs (auto) 1.03, Nucleated RBC % 1.9, Diff Path Review May foll, Anisocytosis 3+, Ovalocytes 2+, Acanthocytes (Spur) 2+, Sodium 152 H, Potassium 5.3 H, Chloride 124 H, Carbon Dioxide 26.0, Anion Gap 2 L, BUN 59 H, Creatinine 1.80 H, Estim Creat Clear Calc 48.94, Est GFR (MDRD) Af Amer 49 L, Est GFR (MDRD) Non-Af 40 L, BUN/Creatinine Ratio 32.8 H, Glucose 249 H, Calcium 8.7 12/03/23 09:16: POC Glucose 201 H 12/03/23 12:00: POC Glucose 163 H Micro: Microbiology 11/28/23 13:16 Blood Culture (Wb) - Left Hand Blood Culture - Final No growth in 5 days. ABG Data ABG results: ABG 12/03/23 12/03/23 12/03/23 10:11 11:36 12:57 Specimen Type ART ART ART Sample Site L Brach R Brach L Brach pH 7.17 L* 7.16 L* 7.24 L Bicarbonate Actual 25.9 26.4 H 26.9 H Total CO2 28 29 29 Base Excess -3 L -2 -1 O2 Saturation 93 L 97 47 L O2 % 6.0 80.0 40.0 ABG pCO2 71.2 H* 73.2 H* 63.1 H ABG pO2 85 116 H 31 L* Polo Test Positive Positive Positive Respiration Rate 14 14 O2 Delivery Device Cannula BiPAP BiPAP Vent Mode Not entered BIVENT BiLevel Tidal Volume 400.0 400.0 Crit Call To/Read Back Yes Yes Yes Blood Gas Notified Whom kleverrj kusum noe Blood Gas Notified Time 10:15:40 11:37:49 13:00:07 Clinical Comments Imaging Radiology Impression Chest X-Ray 12/03/23 13:35 IMPRESSION: Worsening of pneumonia in the left lower lobe. Electronically Signed: Efrain Dowd MD at 14:21 EDT , Assessment and Plan . Assessment and plan: Pt seen and examined. Found to be more lethargic and altered than earlier and ABG revealed acute hypercapnic hypoxemic respiratory failure. Pt was placed on NIV and pulmonary/critical care was asked to re-evaluate. Pt is currently minimally responsive. PE: General: Well developed, acute on chronically ill appearing; +NIV HEENT: anicteric Sclera, nl nose; supple neck, no masses Cardiovascular: S1/S2; No rubs, gallops; no displaced PM Respiratory: diminished with Lt sided crackles; no wheezes or rhonchi Abdominal: Non-tender; Non distended; hypoBS x 4; No Hepatosplenomegaly Extremities: Warm, well perfused; No clubbing, cyanosis; capillary refill < 2 sec Skin: intact, no rashes Neurological: altered/minimally responsive #Acute hypoxemic hypercapnic respiratory failure: unclear etiology but suspect new/worsening PNA 2* to aspiration; on NIV with improvement in acidosis; poor candidate for NIV support given mentation, poor secretion management and progressive worsening despite treatments --> transition to MV support #Sepsis: cont Abx per ID; F/U Cx #PNA; postinfluenza: cont care above; Abx/nebs #MRSA bacteremia: ID on board; recent Cx (11/27) NGTD #AFib with Hx freq sinus pauses; ?tachy/jimmy syndrome: cont care per cardiology #JULIETTE on CKD: poor UOP today; add albumin; cont strict monitoring #Hypernatremia: gentle D5W; add enteric free water #Acute encephalopathy: toxic/metabolic in the setting of above; agree with neurology recommendations; cont supportive care #Diabetes mellitus: cont strict glycemic monitoring; goal 140-180 mg/dL #History of paranoid schizophrenia #Hypothyroidism #CAD #half-way resident Will start trophic TFs in AM Heparin, famotidine Poor overall prognosis DNR/DNI Critical Care Time: 50 min The entirety of this encounter was done via Telemedicine
--- NOTE | 2023-12-03 16:21 | PN_ITS ---
Progress Note Intubation note Decision was made to intubate patient due to his tachypnea, with patient breathing rate ranging between 30-50 on the BIPAP. I discussed with the return agent airport Dr Kraus on the phone and per the discussion, in light of patient's MRDD and encephalopathy, he would not be able to maintain his airway for long. Decision therefore made to intubate patient. Patient was positioned flat. Patient was premedicated with 20mg of IV etomidate. He was pre-oxygenated and ventilated to 100% saturation via ambubag.The indirect laryngoscope was inserted and the vocal cords visualised. Patient was having copious secretions which were suctioned. a 7.5 icelandic endoctracheal tube was inserted; there was no noted color changes, so the ET tube was withdrawn and a second attempt made at intubation with the glidoscope; again there was copious secretions and this was suctioned but there was no color change. THis hospitalist therefore made the decision to call for help and Dr Mon was called urgently. Patient was continuously suctioned and then intubated successfully by Dr Mon using hte indirect laryngoscope with a 7.5 Mongolian ET tube. Color change observed via capnography. TUbe was at 23cm at the teeth. . CXR ordered to confirm ET tube placement.
--- NOTE | 2023-12-03 16:25 | RAD_ITS ---
INDICATION: ETT and OG placement EXAMINATION/TECHNIQUE: X-RAY - XR Chest 1 View COMPARISON: 12/03/2023 FINDINGS: The lungs are unchanged. The cardiomediastinal silhouette is stable. Unchanged position of OG tube and endotracheal tube. No pneumothorax. The osseous structures are unchanged. RAD/Chest 1 View (Portable) IMPRESSION: No change from prior study. Electronically Signed: Leo Norman MD at 19:29 EDT ,
--- NOTE | 2023-12-03 16:29 | PCM.HOSP.N ---
Hospitalist Note Patient underwent intubation today due to declining respiratory status and pneumonia, patient was given 20 mg of etomidate IV, in the supine position, patient's head was moved into the sniffing position, a laryngoscope with a Mckenzie blade was used to visualize the vocal cords, a #7-1/2 ET tube was inserted under direct visualization through the vocal cords, there was good color change noted and the tube was in position at 23 cm. Chest x-ray will be obtained to assure correct placement of the ET tube, patient had auscultated breath sounds on both sides after the tube was placed. There were no complications during the intubation.
--- NOTE | 2023-12-03 16:32 | RAD_ITS ---
INDICATION: ETT advanced EXAMINATION/TECHNIQUE: X-RAY - XR Chest 1 View COMPARISON: 12/03/2023. FINDINGS: The lungs are unchanged. The cardiomediastinal silhouette is stable. Unchanged position of endotracheal tube with tip 5.5 cm above the jaci. Unchanged position of NG tube. No pneumothorax. The osseous structures are unchanged. RAD/Chest 1 View (Portable) IMPRESSION: Unchanged position of endotracheal tube with tip 5.5 cm above the jaci. No change from prior study. Electronically Signed: Leo Norman MD at 20:20 EDT ,
--- NOTE | 2023-12-03 16:43 | NURSING ---
Dr. Glover, RT and RNs at bedside for intubation 1600. Etomidate 20mg IV given at 1605. Patient had a 4.08 second pause. Several attempts to intubate unsuccessful, emesis present with second attempt at 1611. 1615 Dr. Mon at bedside Intubation successful at 1618, size 7.5 23cm at lip. Positive color change and equal b/l breath sounds. OG placed. CXR done, ETT advanced to 25cm at lip
[2023-12-03] MEDS: fentaNYL drip 100 ML 2.5 MCG CONT INF (17:02)
[2023-12-03 17:29] LABS: Allen Test Positive; Base Excess -3 mmol/L (-2 to +2); Bicarbonate 24.4 mmol/L (22-26); Blood Gas Specimen Type ART; Mode AC; O2 Delivery Device Adult Vent; PEEP 8; PO2 67 mmHG (75-100); RR 20; SITE L Radial; SO2 88 % (95-99); Total Carbon Dioxide 26 mmol/L; pCO2 59.3 mmHg (35-45); pH 7.22 (7.35-7.45)
[2023-12-03 17:33] LABS: Bedside Glucose 176 mg/dL (74-106)
[2023-12-03] MEDS: Norepinephrine 8 MG in 0.9% Normal Saline (250mL Bag) 242 ML 9.4 MG CONT INF (18:00)
[2023-12-03] MEDS: Propofol 10MG/Ml 1,000 MG/100 ML Bottle 6.2 MG CONT INF (19:45)
[2023-12-03] MEDS: Chlorhexidine 15 ML PO (21:14)
[2023-12-03] MEDS: Albumin Human 25% (100 mL) 25 GM/100 ML BAG IV (21:14)
[2023-12-03] MEDS: TITRATION PARAMETER CHANGE 1 EACH IV (21:37)
[2023-12-03 21:45] LABS: Bedside Glucose 197 mg/dL (74-106)
[2023-12-04] VITALS (61 sets, daily range): BP systolic 76–181; BP diastolic 48–101; PULSE 61–86; RESP 20–25; TEMP 36.1–37.3; O2SAT 91–100; BMI 32.3
[2023-12-04] MEDS: Dextrose 5%-Water (1000mL Bag) 1,000 ML 75 ML IV ×2 (02:59→17:15)
[2023-12-04 04:59] LABS: Absolute Lymphocyte Count 2.47 X10^3/uL (0.83-4.51); Absolute Neutrophil Count 17.8 X10^3/uL (2.0-7.7); Basophil# 0.05 X10^3/uL; Basophil% 0.2 % (0-1); Eosinophil# 0.12 X10^3/uL; Eosinophils% 0.5 % (0-5); Hematocrit 25.3 % (40-54); Hemoglobin 8.1 g/dL (13.0-16.5); Lymphocyte # 2.47 X10^3/ul (0.83-4.51); Lymphocyte % 10.1 % (19-41); Mean Corpuscular Hgb 25.9 pg (27.0-32.0); Mean Corpuscular Volume 80.8 fL (80-94); Monocyte# 1.68 X10^3/uL; Monocyte% 6.9 % (0-10); NRBC Flagged by Analyzer 3.8 % (0-5); Neutrophil # 17.76 X10^3/uL (2.7-7.7); Neutrophil % 72.7 % (47-70); POSITIVE COUNT YES; POSITIVE DIFFERENTIAL YES; POSITIVE MORPHOLOGY YES; Platelet Count 193 K/mm3 (150-450); RBC Distribution Width CV 20.1 % (11.6-14.6); RBC Distribution Width SD 53.5 fl (35.1-43.9); Red Blood Count 3.13 M/mm3 (4.6-6.2); White Blood Count 24.4 K/mm3 (4.4-11.0)
[2023-12-04 05:02] LABS: Differential Indicated SCAN CRITERIA MET
[2023-12-04 05:24] LABS: Anion Gap 5 (5-15); BUN 63 mg/dL (7-18); BUN/Creat Ratio 19.3 RATIO (10-20); Calcium,Total 8.4 mg/dL (8.5-10.1); Chloride 121 mmol/L (98-107); Creatinine, Serum 3.27 mg/dL (0.70-1.30); EST Glomerular Filtration Rate 20 mL/min (>60); Est Glom Filt Rate - Afr Amer 25 mL/min (>60); Estimated Creatinine Clearance 26.96 ml/min; Glucose 238 mg/dL (74-106); Potassium 4.4 mmol/L (3.5-5.1); Sodium Level 150 mmol/L (136-145)
[2023-12-04 06:05] LABS: Differential Comment SCANNED
[2023-12-04] MEDS: Levothyroxine 50 MCG Tablet PO (06:19)
[2023-12-04 07:17] LABS: Bedside Glucose 196 mg/dL (74-106)
[2023-12-04 08:22] LABS: Allen Test Positive; Base Excess -2 mmol/L (-2 to +2); Bicarbonate 22.2 mmol/L (22-26); Blood Gas Specimen Type ART; Mode AC; O2 Delivery Device Adult Vent; PEEP 8; PO2 66 mmHG (75-100); RR 25; SITE L Radial; SO2 94 % (95-99); Total Carbon Dioxide 23 mmol/L; pCO2 32.1 mmHg (35-45); pH 7.45 (7.35-7.45)
--- NOTE | 2023-12-04 08:27 | PCM.PN.TICU ---
Objective Data Objective Data Vital Signs: Vital Signs Last response Temperature 37.3 C 12/04/23 06:00 Temperature Source Core 12/04/23 06:00 Pulse Rate 78 12/04/23 07:55 Pulse Strength Weak (1+) 12/03/23 21:38 Respiratory Rate 25 H 12/04/23 07:55 Respiratory Effort Mechanically Ventilated 12/04/23 04:00 Respiratory Depth Normal 12/03/23 12:00 Respiratory Pattern Irregular 12/03/23 15:50 Blood Pressure 122/57 H 12/04/23 06:45 Blood Pressure Mean 78 12/04/23 06:45 Blood Pressure Source Monitor 12/03/23 23:00 Blood Pressure Position Semi-Fowlers 12/03/23 20:00 Blood Pressure Location Right Arm 12/03/23 20:00 Pulse Ox 93 12/04/23 07:55 Oxygen Delivery Method Mechanical Ventilator 12/04/23 06:00 Oxygen Flow Rate (L/min) 5 12/03/23 10:00 Fraction of Inspired Oxygen (FIO2) 35 12/04/23 07:55 I&O: I&O Last 24 Hours 12/03/23 12/03/23 12/04/23 11:59 23:59 11:59 Intake Total 2008.33 / 3091.85 812.92 / 3091.85 1640.47 / 1640.47 Output Total 915 / 935 20 / 935 80 / 80 Balance 1093.33 / 2156.85 792.92 / 2156.85 1560.47 / 1560.47 I&O: Total Stay 11/25/23 10:09 thru 12/04/23 06:45 Intake Total 31804.38 Output Total 2166 Balance 53247.38 Current Meds Ordered / Administered: Current meds ordered / Administered Generic Name Dose Route Start Last Admin Trade Name Freq PRN Reason Stop Dose Admin Acetaminophen 650 mg 11/25/23 15:29 Acetaminophen 325 Mg Tablet PO Q4H PRN fever or pain 1-10 Albuterol Sulfate 0.63 mg 11/25/23 16:18 Albuterol 2.5 Mg/3 Ml Vial.Neb. INHALATION Q4H PRN shortness of breath or wheezing Amlodipine Besylate 5 mg 11/26/23 10:00 12/03/23 09:06 Amlodipine 5 Mg Tablet PO Not Given DAILY WILLIAM Protocol Aspirin 81 mg 11/26/23 08:00 12/03/23 09:06 Aspirin E.C. 81 Mg [facility] Atorvastatin Calcium 80 mg 11/25/23 22:00 12/03/23 20:40 Atorvastatin Calcium 80 Mg Tablet PO Not Given QHS WILLIAM Atropine Sulfate 1 mg 11/30/23 21:50 12/02/23 21:43 Atropine Sulfate 1 Mg/10 Ml Syringe IV 1 mg PRN PRN Administration HR< 40bpm, unstable VS/symptom Chlorhexidine Gluconate 15 ml 12/03/23 22:00 12/03/23 21:14 Chlorhexidine 15 Ml PO 15 ml BID WILLIAM Administration Dextrose 0 gm 11/25/23 15:29 Dextrose 50%-Water 25 Gm/50 Ml Disp.Syrin IV X1 PRN HYPOGLYCEMIA Protocol Divalproex Sodium 250 mg 11/25/23 22:00 12/03/23 20:34 Divalproex Sodium 250 Mg Tablet PO Not Given QHS [facility] Divalproex Sodium 500 mg 11/25/23 22:00 12/03/23 20:34 Divalproex Sodium 250 Mg Tablet PO Not Given BID [facility] Ferrous Sulfate 325 mg 11/26/23 12:00 12/03/23 10:42 Ferrous Sulfate 325 Mg Tablet PO Not Given LUNCH [facility] Glucagon 1 mg 11/25/23 15:29 Glucagon 1 Mg/Ml Syringe IM X1 PRN HYPOGLYCEMIA Haloperidol 5 mg 11/25/23 15:29 11/29/23 11:04 Haloperidol 5 Mg Tablet PO 5 mg Q6H PRN Administration AGITATION Protocol Haloperidol Lactate 5 mg 12/01/23 01:56 12/03/23 02:13 Haloperidol Lactate 5 Mg/Ml Vial IV 5 mg Q6H PRN PRN Administration SEVERE AGITATION Protocol Heparin Sodium (Porcine) 5,000 unit 11/25/23 22:00 12/03/23 21:13 Heparin Injection (Vial) 5,000 Unit/Ml Vial SC 5,000 unit Q12 WILLIAM Administration Sodium Chloride 250 mls @ 15 mls/hr 11/25/23 15:45 12/02/23 20:55 IV Infused .[id number] PRN Infusion Additional IVPB Infusion Sodium Chloride 250 mls @ 15 mls/hr 11/25/23 15:45 IV .[id number] PRN Saline Flush Vancomycin IV-PHARMACY TO DOSE 500 mls @ 250 mls/hr 11/27/23 07:55 1 each/ Sodium Chloride IV PRN PRN Rx to Dose Protocol Vancomycin HCl 1,000 mg in 200 mls @ 200 mls/hr 12/02/23 13:30 12/03/23 14:53 Vancomycin IV Infused Q24H WILLIAM Infusion Dextrose 1,000 mls @ 75 mls/hr 12/03/23 13:15 12/04/23 02:59 IV 75 mls/hr .[id number] WILLIAM Administration Pantoprazole Sodium 40 mg/ 110 mls @ 330 mls/hr 12/04/23 10:00 Sodium Chloride IV Q24 WILLIAM Fentanyl 100 mls @ 2.5 mls/hr 12/03/23 16:30 12/04/23 06:00 CONT INF 50 mcg/hr UD WILLIAM 5 mls/hr Titration Protocol 25 MCG/HR Albumin Human 25 gm in 100 mls @ 60 mls/hr 12/03/23 22:00 12/04/23 02:43 IV Infused BID WILLIAM Infusion Norepinephrine Bitartrate 8 mg 250 mls @ 9.375 mls/hr 12/03/23 17:40 12/04/23 06:45 / Sodium Chloride CONT INF 1 mcg/min .[id number] WILLIAM 1.9 mls/hr Titration Protocol 5 MCG/MIN Propofol 1,000 mg in 100 mls @ 6.162 mls/hr 12/03/23 19:30 12/04/23 06:00 Diprivan CONT INF 20 mcg/kg/min .Q12H WILLIAM 12.3 mls/hr Titration Protocol 10 MCG/KG/MIN Insulin Glargine 25 unit 12/02/23 22:00 12/03/23 21:19 Insulin Glargine-Yfgn 100 Unit/Ml Pen SC Not Given BID WILLIAM Insulin Human Lispro 0 unit 11/25/23 16:00 12/03/23 21:18 Insulin Lispro 100 Unit/Ml Insuln.Pen SC 2 u ACHS WILLIAM Administration Protocol Levothyroxine Sodium 50 mcg 11/26/23 06:00 12/04/23 06:19 Levothyroxine 50 Mcg Tablet PO 50 mcg DAILY@0600 WILLIAM Administration Lorazepam 1 mg 11/25/23 15:29 11/29/23 14:24 Lorazepam 1 Mg Tablet PO 1 mg Q6H PRN Administration AGITATION Lorazepam 1 mg 12/01/23 01:56 12/03/23 02:13 Lorazepam 2 Mg/Ml Syringe IV 1 mg Q6H PRN PRN Administration SEVERE AGITATION Medroxyprogesterone Acetate 10 mg 11/25/23 22:00 12/03/23 20:35 Medroxyprogesterone Acetate 10 Mg Tablet PO Not Given BID [facility] Sodium Chloride 10 - 40 ml 11/25/23 15:45 12/02/23 21:44 0.9% Saline Lock 10 Ml Syringe IV 10 ml UD PRN Administration SALINE FLUSH Trazodone HCl 100 mg 11/25/23 22:00 12/03/23 20:35 Trazodone 100 Mg Tablet PO Not Given QHS [facility] Vancomycin Protocol 1 lab 12/04/23 11:00 Vancomycin Trough/Random Due MC 12/04/23 15:00 DAILY [facility] Medical Records Data Medical Nutrition Assessment Dietitian: Malnutrition Criteria Met Start: 12/01/23 09:36 Freq: Status: Active Protocol: Document 12/01/23 09:36 AG (Rec: 12/01/23 09:36 AG Desktop) Nutrition Malnutrition Evidence of Malnutrition Exists Yes Malnutrition (severe): Acute Illness/Injury Evidenced By Suboptimal Energy Intake ( Severe),Weight Loss (Severe) Intake Problem Inadequate Oral Intake Etiology related to altered mental status, concerns for safe swallowing Signs/Symptoms as evidenced by extended NPO x 6 days Status Active Problem Clinical Problem Acute Disease or Injury Related Malnutrition Etiology severe, acute malnutrition related to inadequate energy intake d/t swallowing difficulties Signs/Symptoms as evidenced by unintentional 4% wt loss < 5 days, PO intake meeting <50% of estimated energy needs x 6 days Status Active Problem Recommendation Dietitian Recommendations/Changes If pt is appropriate for PO nutrition, recommend advance as tolerated to 1800 calorie controlled/cardiac diet, texture/consistency per SUPPLY PLANNER. ONS as needed if able to take PO nutrition. Consider enteral nutrition support in next 24-48 hours in view of extended NPO status, acute malnutrition Lab / Micro Data 12/04/23 04:50 12/04/23 04:50 Labs: Laboratory Results - last 24 hr 12/03/23 09:16: POC Glucose 201 H 12/03/23 12:00: POC Glucose 163 H 12/03/23 17:13: POC Glucose 176 H 12/03/23 21:18: POC Glucose 197 H 12/04/23 04:50: WBC 24.4 H, RBC 3.13 L, Hgb 8.1 L, Hct 25.3 L, MCV 80.8, MCH 25.9 L, MCHC 32.0, RDW Std Deviation 53.5 H, RDW Coeff of Saman 20.1 H, Plt Count 193, Immature Gran % (Auto) 9.600 H, Neut % (Auto) 72.7 H, Lymph % (Auto) 10.1 L, [place] % (Auto) 6.9, Eos % (Auto) 0.5, Baso % (Auto) 0.2, Absolute Neuts (auto) 17.8 H, Absolute Lymphs (auto) 2.47, Nucleated RBC % 3.8, Differential Comment SCANNED, Diff Path Review January, Sodium 150 H, Potassium 4.4, Chloride 121 H, Carbon Dioxide 24.0, Anion Gap 5, BUN 63 H, Creatinine 3.27 H, Estim Creat Clear Calc 26.96, Est GFR (MDRD) Af Amer 25 L, Est GFR (MDRD) Non-Af 20 L, BUN/Creatinine Ratio 19.3, Glucose 238 H, Calcium 8.4 L 12/04/23 07:00: POC Glucose 196 H Micro: Microbiology 12/03/23 16:55 Stool Enteric Bacteriology - Final 12/03/23 16:55 Stool Clostridioides difficile (PCR) - Final 11/28/23 13:16 Blood Culture (Wb) - Left Hand Blood Culture - Final No growth in 5 days. ABG Data ABG results: ABG 12/03/23 12/03/23 12/03/23 10:11 11:36 12:57 Specimen Type ART ART ART Sample Site L Brach R Brach L Brach pH 7.17 L* 7.16 L* 7.24 L Bicarbonate Actual 25.9 26.4 H 26.9 H Total CO2 28 29 29 Base Excess -3 L -2 -1 O2 Saturation 93 L 97 47 L O2 % 6.0 80.0 40.0 ABG pCO2 71.2 H* 73.2 H* 63.1 H ABG pO2 85 116 H 31 L* Polo Test Positive Positive Positive Respiration Rate 14 14 O2 Delivery Device Cannula BiPAP BiPAP Vent Mode Not entered BIVENT BiLevel Tidal Volume 400.0 400.0 POC PEEP Crit Call To/Read Back Yes Yes Yes Blood Gas Notified Whom kusum noe Blood Gas Notified Time 10:15:40 11:37:49 13:00:07 Clinical Comments 12/03/23 12/04/23 17:25 08:18 Specimen Type ART ART Sample Site L Radial L Radial pH 7.22 L 7.45 Bicarbonate Actual 24.4 22.2 Total CO2 26 23 Base Excess -3 L -2 O2 Saturation 88 L 94 L O2 % 50.0 35.0 ABG pCO2 59.3 H 32.1 L ABG pO2 67 L 66 L Polo Test Positive Positive Respiration Rate 20 25 O2 Delivery Device Adult Vent Adult Vent Vent Mode AC AC Tidal Volume 450.0 500.0 POC PEEP 8 8 Crit Call To/Read Back Blood Gas Notified Whom Blood Gas Notified Time Clinical Comments Imaging Radiology Impression Chest X-Ray 12/03/23 13:35 IMPRESSION: Worsening of pneumonia in the left lower lobe. Electronically Signed: Efrain Dowd MD at 14:21 EDT , Chest X-Ray 12/03/23 16:25 IMPRESSION: No change from prior study. Electronically Signed: Leo Norman MD at 19:29 EDT , Chest X-Ray 12/03/23 16:32 IMPRESSION: Unchanged position of endotracheal tube with tip 5.5 cm above the jaci. No change from prior study. Electronically Signed: Leo Norman MD at 20:20 EDT , Assessment and Plan . Assessment and plan: Intubated, sedated. Continued to have some prolonged sinus pauses over night but otherwise no sig changes. Prop @ 20 Fent @ 50 25 450 8 35 PE: General: Well developed, acute on chronically ill appearing; +MV HEENT: anicteric Sclera, + ETT; nl nose; supple neck, no masses Cardiovascular: S1/S2; No rubs, gallops; no displaced PM Respiratory: diminished with Lt sided crackles; no wheezes or rhonchi Abdominal: Non-tender; Non distended; hypoBS x 4; No Hepatosplenomegaly Extremities: Warm, well perfused; No clubbing, cyanosis; capillary refill < 2 sec Skin: intact, no rashes Neurological: sedated #Acute hypoxemic hypercapnic respiratory failure: intubated 12/02; cont MV; settings reviewed/adjusted; wean FiO2 to target sats ~90-92%; minimize sedation as tolerated; anticipate challenging extubation #Shock: ?sedation-related vs worsening sepsis vs other; cont Nepi to keep MAP > 65; cont albumin #Sepsis: cont Abx per ID; F/U Cx --> added Merrem 12/03, cont vanc; F/U Cx #PNA; postinfluenza: cont care above; Abx/nebs #MRSA bacteremia: ID on board; recent Cx (11/27) NGTD #AFib with Hx freq sinus pauses; ?tachy/jimmy syndrome: cont care per cardiology; will see if less episodes off propofol; keep pacer pads on pt; ?TVP if bacteremia resolved #JULIETTE on CKD: poor UOP today; add albumin; cont strict monitoring --> lasix on hold given worsening hypotension #Hypernatremia: gentle D5W; enteric free water --> improving #Acute encephalopathy: toxic/metabolic in the setting of above; agree with neurology recommendations; cont supportive care #Diabetes mellitus: cont strict glycemic monitoring; goal 140-180 mg/dL #History of paranoid schizophrenia #Hypothyroidism #CAD #assisted resident Trophic TFs Heparin, famotidine Poor overall prognosis but per hospitalist's discussion with brother we are instructed to do every thing DNR/DNI Critical Care Time: 50 min The entirety of this encounter was done via Telemedicine
[2023-12-04] MEDS: Pantoprazole Sodium 40 MG in 0.9% Normal Saline (100mL MB+) 100 ML 330 MG IV (11:24)
[2023-12-04] MEDS: Albumin Human 25% (100 mL) 25 GM/100 ML BAG IV ×2 (11:26→21:21)
[2023-12-04] MEDS: Chlorhexidine 15 ML PO ×2 (11:27→21:21)
[2023-12-04] MEDS: Midazolam 50 MG in 0.9% Normal Saline (100mL Bag) 90 ML CONT INF (11:27)
[2023-12-04] MEDS: fentaNYL drip 100 ML 5 MCG CONT INF (11:38)
[2023-12-04] MEDS: Heparin Injection (Vial) 5,000 UNIT/ML VIAL 5000 UNIT SC ×2 (11:42→21:21)
[2023-12-04] MEDS: Propofol 10MG/Ml 1,000 MG/100 ML Bottle 9.2 MG CONT INF (11:45)
[2023-12-04] MEDS: Meropenem 1 GM in 0.9% Normal Saline (100mL MB+) 100 ML IV ×2 (11:50→21:21)
[2023-12-04] MEDS: Insulin Lispro 100 UNIT/ML INSULN.PEN SC ×3 (11:55→21:22)
[2023-12-04] MEDS: Insulin Glargine-YFGN 100 UNIT/ML Pen 25 UNIT SC ×2 (11:56→21:21)
[2023-12-04 12:24] LABS: Bedside Glucose 243 mg/dL (74-106)
[2023-12-04 13:47] LABS: CPK Total, Creatine Kinase 32 U/L (39-308); Triglycerides 61 mg/dL
--- NOTE | 2023-12-04 14:02 | PN_ITS ---
Subjective Subjective Patient seen and examined. He remains intubated and sedated. Unable to do review of systems. RASS score is -4. Objective Data Objective Data Vital Signs: Vital Signs Temp Pulse Resp BP Pulse Ox O2 Del Method O2 Flow Rate 99.1 F 66 24 H 122/57 H 96 Mechanical Ventilator 5 12/04/23 06:00 12/04/23 10:46 12/04/23 10:46 12/04/23 06:45 12/04/23 10:46 12/04/23 06:00 12/03/23 10:00 FiO2 30 12/04/23 10:46 Oxygen Flow Rate (L/min) 5 Oxygen Delivery Method Mechanical Ventilator Weight: 225 lb 1.471 oz Body Mass Index (BMI) 32.3 Intake & Output: Intake and Output for Last 24 Hours 12/02/23 12/03/23 12/04/23 23:59 23:59 23:59 Intake Total 2145 / 2145 2821.25 / 3091.85 2586.16 / 2586.16 Output Total 935 / 935 80 / 80 Balance 2145 / 1345 1886.25 / 2156.85 2506.16 / 2506.16 Medical Nutrition Assessment Dietitian: Malnutrition Criteria Met Start: 12/01/23 09:36 Freq: Status: Active Protocol: Document 12/01/23 09:36 AG (Rec: 12/01/23 09:36 AG Desktop) Nutrition Malnutrition Evidence of Malnutrition Exists Yes Malnutrition (severe): Acute Illness/Injury Evidenced By Suboptimal Energy Intake ( Severe),Weight Loss (Severe) Intake Problem Inadequate Oral Intake Etiology related to altered mental status, concerns for safe swallowing Signs/Symptoms as evidenced by extended NPO x 6 days Status Active Problem Clinical Problem Acute Disease or Injury Related Malnutrition Etiology severe, acute malnutrition related to inadequate energy intake d/t swallowing difficulties Signs/Symptoms as evidenced by unintentional 4% wt loss < 5 days, PO intake meeting <50% of estimated energy needs x 6 days Status Active Problem Recommendation Dietitian Recommendations/Changes If pt is appropriate for PO nutrition, recommend advance as tolerated to 1800 calorie controlled/cardiac diet, texture/consistency per [employer]OR. ONS as needed if able to take PO nutrition. Consider enteral nutrition support in next 24-48 hours in view of extended NPO status, acute malnutrition Lab / Micro Data 12/04/23 04:50 12/04/23 04:50 Labs: Laboratory Results - last 24 hr 12/03/23 17:13: POC Glucose 176 H 12/03/23 21:18: POC Glucose 197 H 12/04/23 04:50: WBC 24.4 H, RBC 3.13 L, Hgb 8.1 L, Hct 25.3 L, MCV 80.8, MCH 25.9 L, MCHC 32.0, RDW Std Deviation 53.5 H, RDW Coeff of Saman 20.1 H, Plt Count 193, Immature Gran % (Auto) 9.600 H, Neut % (Auto) 72.7 H, Lymph % (Auto) 10.1 L , [place] % (Auto) 6.9, Eos % (Auto) 0.5, Baso % (Auto) 0.2, Absolute Neuts (auto) 17.8 H, Absolute Lymphs (auto) 2.47, Nucleated RBC % 3.8, Differential Comment SCANNED, Diff Path Review January, Sodium 150 H, Potassium 4.4, Chloride 121 H, Carbon Dioxide 24.0, Anion Gap 5, BUN 63 H, Creatinine 3.27 H, Estim Creat Clear Calc 26.96, Est GFR (MDRD) Af Amer 25 L, Est GFR (MDRD) Non-Af 20 L, BUN/Creatinine Ratio 19.3, Glucose 238 H, Calcium 8.4 L, Total Creatine Kinase 32 L, Triglycerides 61 12/04/23 07:00: POC Glucose 196 H 12/04/23 11:55: POC Glucose 243 H Micro: Microbiology 12/03/23 16:20 Sputum, Induced/Lukens Respiratory Culture - Preliminary Staphylococcus aureus 11/29/23 09:50 Blood Culture (Wb) - Right Hand Blood Culture - Final No growth in 5 days. 12/03/23 16:55 Stool Enteric Bacteriology - Final 12/03/23 16:55 Stool Clostridioides difficile (PCR) - Final 11/28/23 13:16 Blood Culture (Wb) - Left Hand Blood Culture - Final No growth in 5 days. 11/25/23 10:45 Blood Culture (Wb) - Anticubital Right Blood Culture - Final No growth in 5 days. 11/25/23 10:38 Blood Culture (Wb) - Anticubital Left Blood Culture - Final Meth. resistant Staph. aureus 11/25/23 11:45 Urine, Catheterized Urine Culture - Final Culture exhibits no growth. 11/26/23 11:26 Stool Clostridioides difficile (PCR) - Final 11/25/23 11:40 Mucosa - Nose SARS-CoV-2, Influenza & RSV (PCR) - Final ABG Data ABG results: ABG 12/03/23 12/04/23 17:25 08:18 Specimen Type ART ART Sample Site L Radial L Radial pH 7.22 L 7.45 Bicarbonate Actual 24.4 22.2 Total CO2 26 23 Base Excess -3 L -2 O2 Saturation 88 L 94 L O2 % 50.0 35.0 ABG pCO2 59.3 H 32.1 L ABG pO2 67 L 66 L Polo Test Positive Positive Respiration Rate 20 25 O2 Delivery Device Adult Vent Adult Vent Vent Mode AC AC Tidal Volume 450.0 500.0 POC PEEP 8 8 Radiography Diagnostic Testing: Radiology Impression Chest X-Ray 12/03/23 13:35 IMPRESSION: Worsening of pneumonia in the left lower lobe. Electronically Signed: Efrain Dowd MD at 14:21 EDT , Chest X-Ray 12/03/23 16:25 IMPRESSION: No change from prior study. Electronically Signed: Leo Norman MD at 19:29 EDT , Chest X-Ray 12/03/23 16:32 IMPRESSION: Unchanged position of endotracheal tube with tip 5.5 cm above the jaci. No change from prior study. Electronically Signed: Leo Norman MD at 20:20 EDT , Physical Exam Const Constitutional Narrative: intubated, sedated, RASS score is -4 HEENT normocephalic, head/scalp atraumatic, moist oral mucous membranes and oropharynx normal Eyes PERRL and EOMs intact bilaterally Neck no lymphadenopathy and supple Lymph Lymphatic: no lymphadenopathy noted, no lymphedema noted and lymphedema Resp Resp Narrative: diminished breath sounds bilaterally, coarse crackles in all lung bailey. Intubated and sedated. RASS goals -4 Cardio regular rate, regular rhythm, S1 normal heart sound, S2 normal heart sound and no murmurs Cardio Narrative: has had intermittent bradycardia down to the 20s still and did so overnight GI normal to inspection, nondistended, normoactive bowel sounds, soft to palpation, non-tender and non-distended Extremity normal capillary refill, no clubbing, cyanosis or edema and no calf tenderness General Extremity: no tenderness to palpation of joints or extremities Skin General Skin Exam: no breakdown Neuro Neuro Narrative: intubated, RASS score is -4 Psych Psych Narrative: intubated, sedated. Assessment & Plan Assessment/Plan (1) Sepsis: (2) Pneumonia: PLAN: Plan #Acute hypoxic respiratory failure due to left MSSA pneumonia and aspiration * Patient has been emergently intubated yesterday due to worsening respiratory status and inability to protect his airway. * Blood cultures grew MSSA. 2D echo done showed no evidence of vegetation. * Currently on IV vancomycin and Unasyn. ID on board. * Critical care on board. Management of vent as per critical care. * Sedated with fentanyl and propofol. * Also on Lasix to help with diuresis assess urine output has been poor. He is in positive balance by ~ 15,500 L * will continue diuresing with lasix #Sepsis due to left MSSA pneumonia with MSSA bacteremia * WBC trended up further to 24 today. Emergently intubated and sedated yesterday * on IV vancomycin and IV unasyn * There is concern for aspiration. * Breathing treatments bronchodilators. Titrate oxygen to maintain saturation above 90%. * ID on board * blood cultures growing Staph aureus. * 2D echo showed normal ventricular size with the ventricular systolic function which was normal and stage I diastolic dysfunction and EF of 55%. No evidence of vegetation. * #acute encephalopathy * Had a seizure like episode during this admission. His eyes rolled back in his head and he had tonic-clonic motions which lasted for a few minutes. * Patient given a loading dose of Keppra. * seizure precautions * neurology consulted: per neuro rec's keppra discontinued. * CT brain showed only chronic involutional changes * EEG was also normal * Ammonia level not elevated. TSH is WNL. To minimize use of benzos, opiates, anticholinergics. * #Acute hypoxic respiratory failure likely due to aspiration pneumonia and fluid overload * #CAD: * Has a history of non-STEMI. He did not have a cath in the past because his caregiver refused this. * Lasix and losartan held on admission due to low blood pressure. * troponins were also elevated * 2D echo as above. * Guardian refused cath in the past. * On Lipitor * has been having pauses on his telemetry as well as bradycardia when sleeping. cardiology consulted. * metoprolol held. Due to bradycardia * #Bradycardia * Patient has been bradycardic with heart rate going down to the 20s. * he however also however gets tachycardic, with HR going up to the 140s intermittently * He had such prolonged pauses again yesterday and required atropine. * cardiology on board. Patient not a candidate for pacemaker due to his active MSSA bactremia * Patient continues to have significant bradycardia with prolonged pauses. Since he cannot have a pacemaker put in in light of his MSSA bacteremia, will call his guardian to discuss possible change of CODE STATUS. Patient's legal guardian Umang Chung ([phone]) called and on the phone and updated by phone. His legal guardian wishes for patient to remain full code for now. * #JULIETTE on CKD stage III: * Creatinine went up to 3.27 from 1.8 yesterday . * baseline Cr is ~ 2. consult nephrology due to his poor urine output and worsening respiratory status. #Hypernatremia: Sodium is down to 150 from 152 yesterday. On D5 water. Will continue. #[place]kaleia: Potassium is 5.3 today. Will give Kayexalate and hold all potassium sparing medications. #Hypertension: On metoprolol and Norvasc. Metoprolol held due to bradycardia. #Type 2 diabetes mellitus: Jardiance and metformin on hold. On lantus. Insulin sliding scale. Accuchecks ACHS #Paranoid schizophrenia: depakote and haldol #Hypothyroidism: On Synthroid #Iron deficiency anemia: * on oral iron supplementation. Hb today is down to 8.1. * Hemoglobin was 8.8 yesterday. * Will monitor closely and if it continues to drop benefit from extensive workup for anemia. DVT prophylaxis: lovenox, renally dosed. Disposition: Patient switched back to ICU status due to the deterioration in his status. Charges/Coding Visit Charges Inpatient E&M: 15408 Subs Hosp L3
[2023-12-04 14:06] LABS: Vancomycin, Trough Level 26.8 ug/mL (5.0-15.0)
--- NOTE | 2023-12-04 14:36 | PCM.RX.CS ---
Consult Antibiotic Management Pharmacy has been consulted to manage selected antibiotic: Vancomycin Type of Intervention Type of Consult: Follow-up Prior Doses of Antibiotics Prior Doses of Antibiotics Received/Current Regimen: current dose is vanc 1000mg IV q24h Labs Labs: Sodium 150 mmol/L (136-145) H 12/04/23 04:50 Potassium 4.4 mmol/L (3.5-5.1) 12/04/23 04:50 Chloride 121 mmol/L (98-107) H 12/04/23 04:50 Carbon Dioxide 24.0 mmol/L (21.0-32.0) 12/04/23 04:50 Anion Gap 5 (5-15) 12/04/23 04:50 BUN 63 mg/dL (7-18) H 12/04/23 04:50 Creatinine 3.27 mg/dL (0.70-1.30) H 12/04/23 04:50 Est GFR (MDRD) Af Amer 25 mL/min (>60) L 12/04/23 04:50 Est GFR (MDRD) Non-Af 20 mL/min (>60) L 12/04/23 04:50 BUN/Creatinine Ratio 19.3 RATIO (10-20) 12/04/23 04:50 Glucose 238 mg/dL (74-106) H 12/04/23 04:50 Vancomycin Trough 26.8 ug/mL (5.0-15.0) H 12/04/23 13:30 Random Vancomycin 13.4 ug/mL (0.0-15.0) 12/02/23 12:00 Microbiology Microbiology: Microbiology 12/03/23 16:20 Sputum, Induced/Lukens Respiratory Culture - Preliminary Staphylococcus aureus 11/29/23 09:50 Blood Culture (Wb) - Right Hand Blood Culture - Final No growth in 5 days. 12/03/23 16:55 Stool Enteric Bacteriology - Final 12/03/23 16:55 Stool Clostridioides difficile (PCR) - Final 11/28/23 13:16 Blood Culture (Wb) - Left Hand Blood Culture - Final No growth in 5 days. 11/25/23 10:45 Blood Culture (Wb) - Anticubital Right Blood Culture - Final No growth in 5 days. 11/25/23 10:38 Blood Culture (Wb) - Anticubital Left Blood Culture - Final Meth. resistant Staph. aureus 11/25/23 11:45 Urine, Catheterized Urine Culture - Final Culture exhibits no growth. 11/26/23 11:26 Stool Clostridioides difficile (PCR) - Final 11/25/23 11:40 Mucosa - Nose SARS-CoV-2, Influenza & RSV (PCR) - Final Dosing Weight Weight used for dosin.1 kg Estimated Creatinine Clearance Estimated Creatinine Clearance: 27 ml/min Goal Trough Goal Trough: 15-20 mcg/mL Pharmacy Plan for Drug Dosing Pharmacy Plan for Drug Dosing: The vanc random level drawn at 13:30 today was 26.8 (approx 24 hours after the last dose). This is well above 20 so will discontinue current dose. Will order a random level to be drawn in 24 hours. Will continue to hold dosing until that level is back. Of note, the patient's SCr increased to 3.27 today from 1.80 yesterday. Pharmacy Service will continue to monitor and adjust dosing as required. Follow-Up Labs Follow-Up Labs: Trough: Vancomycin (random) Date/Time Labs Ordered Labs to be done on [date and time ordered]: 12/05/23 13;00
[2023-12-04 17:12] LABS: Bedside Glucose 192 mg/dL (74-106)
[2023-12-04] MEDS: NEPRO TUBE FEED 1,000 ML 10 ML GT (17:16)
--- NOTE | 2023-12-04 18:04 | PCM.CONS.R ---
Assessment & Plan Assessment/Plan (1) JULIETTE (acute kidney injury): PLAN: possible he has CKD 3B. cr was mostly around 2.0 until yesterday sudden increase today oliguric Ratliff indwelling, chances of obstruction low muddy brown urine likely ATN due to sepsis no acute indications for TOWBOAT PILOT vanco as per levels dw hospitalist HPI Consult Data Date of Consult: 12/04/23 HPI Narrative Reason for Consultation: JULIETTE HPI Narrative: ERICK DIAZ, is a 63 M who presents to hospital with pneumonia. renal consulted in view of JULIETTE it appears he has CKD 3B with baseline cr around 2.0 or so. ongoing events include MSSA pneumonia, MSSA bacteremia, Bradycardia, respiratory failure, suspected seizures went into shock in last 48 hours, currently on levophed. significantly positive overall since admit was on lasix for diuresis but now on hold due to JULIETTE unable to obtain ROS [facility] Medical History Anxiety and depression Atrial fibrillation Chest pain Chronic anemia CKD (chronic kidney disease), stage III Congestive heart failure (CHF) COPD (chronic obstructive pulmonary disease) Diabetes mellitus, type 2 Fe deficiency anemia HLD (hyperlipidemia) HTN (hypertension) Hx of non-ST elevation myocardial infarction (NSTEMI) Hypothyroidism Obesity PVD (peripheral vascular disease) Schizophrenia Smoker Tobacco use Home Medications atorvastatin 80 mg tablet 80 mg PO DAILY arterial disease 07/25/19 [History Last Taken 11/24/23] cholecalciferol (vitamin D3) 50 mcg (2,000 unit) capsule 2,000 unit PO DAILY supplement 07/25/19 [History Last Taken 11/25/23] haloperidol 5 mg tablet 5 mg PO Q6H PRN Agitation 07/25/19 [History Last Taken 11/15/23] levothyroxine 50 mcg tablet 50 mcg PO DAILY hypothyroid 07/25/19 [History Last Taken 11/25/23] lorazepam 1 mg tablet 1 mg PO Q6H PRN Agitation 07/25/19 [History Last Taken 11/15/23] metformin 1,000 mg tablet 1,000 mg PO BID DM 07/25/19 [History Last Taken 11/25/23] trazodone 100 mg tablet 100 mg PO QHS insom 07/25/19 [History Last Taken 11/24/23] albuterol sulfate 0.63 mg/3 mL solution for nebulization 0.63 mg inhalation TID Wheezing 09/23/21 [History Last Taken 11/25/23] losartan 100 mg tablet 100 mg PO DAILY hypertensio 09/23/21 [History Last Taken 11/25/23] aluminum-mag hydroxide-simethicone 400 mg-400 mg-40 mg/5 mL oral susp (Mylanta Maximum Strength) 15 ml PO Q4H PRN heartburn/indigestion 09/24/21 [History Last Taken Unknown] magnesium hydroxide 400 mg/5 mL oral suspension (Milk of Magnesia) 30 ml PO DAILY PRN Constipation 09/24/21 [History Last Taken Unknown] nicotine (polacrilex) 2 mg buccal lozenge 2 mg buccal Q2H PRN smoking alternative 09/24/21 [History Last Taken Unknown] acetaminophen 325 mg tablet (Tylenol) 650 mg PO Q4H PRN fever or pain 11/10/21 [History Last Taken Unknown] ferrous sulfate 325 mg (65 mg iron) tablet 325 mg PO DAILY iron 07/21/22 [History Last Taken 11/25/23] haloperidol 2 mg tablet 2 mg PO TID agitation 07/21/22 [History Last Taken 11/25/23] metoprolol tartrate 100 mg tablet 100 mg PO BID htn 30 days #0 tabs 07/23/22 [Rx Last Taken 11/25/23] divalproex 250 mg tablet,delayed release (Depakote) 250 mg PO BID paranoid schizophrenia 08/11/22 [History Last Taken 11/24/23] furosemide 40 mg tablet (Lasix) 40 mg PO DAILY chf 08/11/22 [History Last Taken 11/24/23] amlodipine 5 mg tablet 5 mg PO DAILY #90 tabs 08/30/22 [Rx Last Taken 11/25/23] divalproex 500 mg tablet,extended release 24 hr (Depakote ER) 500 mg PO BID paranoid schizopreh 07/20/23 [History Last Taken 11/25/23] empagliflozin 25 mg tablet (Jardiance) 25 mg PO DAILY DM 07/20/23 [History Last Taken 11/25/23] insulin lispro 100 unit/mL subcutaneous cartridge 17 unit subcut TID hyperglycemia 07/20/23 [History Last Taken 11/24/23] lorazepam 1 mg tablet 1 mg PO BID anxiety 07/20/23 [History Last Taken 11/25/23] medroxyprogesterone 10 mg tablet (Provera) 10 mg PO BID sexual aggression 07/20/23 [History Last Taken 11/25/23] aspirin 81 mg tablet,delayed release (Adult Aspirin Regimen) 81 mg PO DAILY PVD 11/19/23 [History Last Taken 11/25/23] glucagon HCl 1 mg solution for injection (Glucagon (HCl) Emergency Kit) 1 mg IM Q20M PRN hypoglycemia 11/19/23 [History Last Taken Unknown] nicotine 10 mg inhalation cartridge (Nicotrol) 1 inh inhalation Q2H PRN nicotine cravings 11/19/23 [History Last Taken Unknown] prednisone 20 mg tablet 40 mg (2 x 20 mg) PO DAILY 3 days #6 tabs 11/20/23 [Rx Last Taken 11/24/23] albuterol sulfate 0.63 mg/3 mL solution for nebulization 0.63 mg inhalation Q4H PRN shortness of breath or wheezing 11/25/23 [History Last Taken 11/25/23] insulin glargine 100 unit/mL subcutaneous solution (Lantus U-100 Insulin) 35 unit subcut QHS diabetes 11/25/23 [History Last Taken 11/24/23] oseltamivir 75 mg capsule (Tamiflu) 75 mg PO DAILY 11/25/23 [History Last Taken 11/25/23] Allergy/AdvReac Type Severity Reaction Status Date / Time No Known Allergies Allergy Verified 11/25/23 10:09 Family History Mother No family history of disorders Father No family history of disorders Other Hypertension Surgical History No history of previous surgery No history of previous surgery Social History household members: other details: [facility] housing: other details: [facility]. Smoking Status: Current every day smoker tobacco type: cigarettes alcohol intake: never substance use type: does not use Physical Exam Narrative intubated no obvious distress no pallor no icterus no JVD s1s2 no murmurs lungs clear abdomen soft no organomegaly no edema no cyanosis ratliff + Medical Records Data Medical Nutrition Assessment Dietitian: Malnutrition Criteria Met Start: 12/01/23 09:36 Freq: Status: Active Protocol: Document 12/01/23 09:36 AG (Rec: 12/01/23 09:36 AG Desktop) Nutrition Malnutrition Evidence of Malnutrition Exists Yes Malnutrition (severe): Acute Illness/Injury Evidenced By Suboptimal Energy Intake ( Severe),Weight Loss (Severe) Intake Problem Inadequate Oral Intake Etiology related to altered mental status, concerns for safe swallowing Signs/Symptoms as evidenced by extended NPO x 6 days Status Active Problem Clinical Problem Acute Disease or Injury Related Malnutrition Etiology severe, acute malnutrition related to inadequate energy intake d/t swallowing difficulties Signs/Symptoms as evidenced by unintentional 4% wt loss < 5 days, PO intake meeting <50% of estimated energy needs x 6 days Status Active Problem Recommendation Dietitian Recommendations/Changes If pt is appropriate for PO nutrition, recommend advance as tolerated to 1800 calorie controlled/cardiac diet, texture/consistency per DYNAMITE RECLAIMER. ONS as needed if able to take PO nutrition. Consider enteral nutrition support in next 24-48 hours in view of extended NPO status, acute malnutrition Lab / Micro Data 12/04/23 04:50 12/04/23 04:50 Labs: Laboratory Results - last 24 hr 12/03/23 21:18: POC Glucose 197 H 12/04/23 04:50: WBC 24.4 H, RBC 3.13 L, Hgb 8.1 L, Hct 25.3 L, MCV 80.8, MCH 25.9 L, MCHC 32.0, RDW Std Deviation 53.5 H, RDW Coeff of Saman 20.1 H, Plt Count 193, Immature Gran % (Auto) 9.600 H, Neut % (Auto) 72.7 H, Lymph % (Auto) 10.1 L, [place] % (Auto) 6.9, Eos % (Auto) 0.5, Baso % (Auto) 0.2, Absolute Neuts (auto) 17.8 H, Absolute Lymphs (auto) 2.47, Nucleated RBC % 3.8, Differential Comment SCANNED, Diff Path Review January, Sodium 150 H, Potassium 4.4, Chloride 121 H, Carbon Dioxide 24.0, Anion Gap 5, BUN 63 H, Creatinine 3.27 H, Estim Creat Clear Calc 26.96, Est GFR (MDRD) Af Amer 25 L, Est GFR (MDRD) Non-Af 20 L, BUN/Creatinine Ratio 19.3, Glucose 238 H, Calcium 8.4 L, Total Creatine Kinase 32 L, Triglycerides 61 12/04/23 07:00: POC Glucose 196 H 12/04/23 11:55: POC Glucose 243 H 12/04/23 13:30: Vancomycin Trough 26.8 H 12/04/23 16:55: POC Glucose 192 H Micro: Microbiology 12/03/23 16:20 Sputum, Induced/Lukens Gram Stain - Final 12/03/23 16:20 Sputum, Induced/Lukens Respiratory Culture - Preliminary Staphylococcus aureus 11/29/23 09:50 Blood Culture (Wb) - Right Hand Blood Culture - Final No growth in 5 days. 12/03/23 16:55 Stool Enteric Bacteriology - Final 12/03/23 16:55 Stool Clostridioides difficile (PCR) - Final 11/28/23 13:16 Blood Culture (Wb) - Left Hand Blood Culture - Final No growth in 5 days. ABG Data ABG results: ABG 12/04/23 08:18 Specimen Type ART Sample Site L Radial pH 7.45 Bicarbonate Actual 22.2 Total CO2 23 Base Excess -2 O2 Saturation 94 L O2 % 35.0 ABG pCO2 32.1 L ABG pO2 66 L Polo Test Positive Respiration Rate 25 O2 Delivery Device Adult Vent Vent Mode AC Tidal Volume 500.0 POC PEEP 8 Imaging Radiology Impression Chest X-Ray 12/03/23 16:25 IMPRESSION: No change from prior study. Electronically Signed: Leo Norman MD at 19:29 EDT , Chest X-Ray 12/03/23 16:32 IMPRESSION: Unchanged position of endotracheal tube with tip 5.5 cm above the jaci. No change from prior study. Electronically Signed: Leo Norman MD at 20:20 EDT ,
[2023-12-04] MEDS: fentaNYL drip 100 ML 20 MCG CONT INF (18:24)
[2023-12-04] MEDS: Midazolam 50 MG in 0.9% Normal Saline (100mL Bag) 90 ML 16 MG CONT INF (18:25)
[2023-12-04] MEDS: MEDROXYPROGESTERONE ACETATE 10 MG TABLET GT (21:20)
[2023-12-04] MEDS: Atorvastatin Calcium 80 MG Tablet GT (21:20)
[2023-12-04] MEDS: traZODone 100 MG Tablet GT (21:21)
[2023-12-04] MEDS: 0.9% Saline Lock 10 ML Syringe IV (21:22)
[2023-12-04 21:40] LABS: Bedside Glucose 173 mg/dL (74-106)
[2023-12-05] VITALS (43 sets, daily range): BP systolic 86–145; BP diastolic 50–68; PULSE 60–100; RESP 12–25; TEMP 35.8–36.8; O2SAT 89–100; BMI 32.3
[2023-12-05] MEDS: fentaNYL drip 100 ML 20 MCG CONT INF (00:02)
[2023-12-05] MEDS: Midazolam 50 MG in 0.9% Normal Saline (100mL Bag) 90 ML 16 MG CONT INF (01:09)
[2023-12-05 03:15] LABS: Absolute Lymphocyte Count 2.23 X10^3/uL (0.83-4.51); Absolute Neutrophil Count 10.8 X10^3/uL (2.0-7.7); Basophil# 0.04 X10^3/uL; Basophil% 0.3 % (0-1); Eosinophil# 0.12 X10^3/uL; Eosinophils% 0.8 % (0-5); Hematocrit 23.4 % (40-54); Hemoglobin 7.6 g/dL (13.0-16.5); Lymphocyte # 2.23 X10^3/ul (0.83-4.51); Lymphocyte % 15.1 % (19-41); Mean Corp Hgb Conc 32.5 g/dL (32-36); Mean Corpuscular Hgb 25.6 pg (27.0-32.0); Mean Corpuscular Volume 78.8 fL (80-94); Monocyte% 6.1 % (0-10); NRBC Flagged by Analyzer 1.3 % (0-5); Neutrophil # 10.79 X10^3/uL (2.7-7.7); Neutrophil % 73.2 % (47-70); Platelet Count 156 K/mm3 (150-450); RBC Distribution Width CV 19.6 % (11.6-14.6); RBC Distribution Width SD 50.9 fl (35.1-43.9); Red Blood Count 2.97 M/mm3 (4.6-6.2); White Blood Count 14.7 K/mm3 (4.4-11.0)
[2023-12-05 03:29] LABS: Anion Gap 5 (5-15); BUN 64 mg/dL (7-18); BUN/Creat Ratio 20.2 RATIO (10-20); Calcium,Total 8.6 mg/dL (8.5-10.1); Chloride 119 mmol/L (98-107); Creatinine, Serum 3.17 mg/dL (0.70-1.30); EST Glomerular Filtration Rate 21 mL/min (>60); Est Glom Filt Rate - Afr Amer 26 mL/min (>60); Estimated Creatinine Clearance 27.85 ml/min; Glucose 171 mg/dL (74-106); Potassium 3.4 mmol/L (3.5-5.1); Sodium Level 148 mmol/L (136-145)
[2023-12-05 05:50] LABS: Allen Test Positive; Base Excess -2 mmol/L (-2 to +2); Bicarbonate 21.4 mmol/L (22-26); Blood Gas Specimen Type ART; Mode AC; O2 Delivery Device ET Tube; PEEP 5; PO2 81 mmHG (75-100); RR 25; SITE R Radial; SO2 97 % (95-99); Total Carbon Dioxide 22 mmol/L; pCO2 28.3 mmHg (35-45); pH 7.49 (7.35-7.45)
--- NOTE | 2023-12-05 05:55 | RAD_ITS ---
EXAM: XR CHEST, 1 VIEW CLINICAL INDICATION: RESP FAILURE VENT TECHNIQUE: Frontal view of the chest. COMPARISON: 12/03/2023. FINDINGS: LUNGS AND PLEURAL SPACES: Persistent hazy increased density throughout much of the left lung may be due to consolidation, atelectasis, and/or pleural effusion similar to the prior exam. No pneumothorax. HEART: Unremarkable. Cardiac silhouette not enlarged. MEDIASTINUM: Central airways and mediastinal contour are unremarkable. BONES/JOINTS: Unremarkable. No acute fracture. SOFT TISSUES: Unremarkable. TUBES, LINES AND DEVICES: Endotracheal tube tip is 6.3 cm above the jaci. NG tube is in the stomach. RAD/Chest 1 View (Portable) IMPRESSION: 1. Persistent hazy increased density throughout much of the left lung may be due to consolidation, atelectasis, and/or pleural effusion similar to the prior exam. 2. Endotracheal tube tip is 6.3 cm above the jaci. 3. NG tube is in the stomach. Electronically Signed: Tano Martin MD at 5:47 EDT ,
[2023-12-05] MEDS: fentaNYL drip 100 ML 10 MCG CONT INF ×2 (06:00→16:55)
[2023-12-05] MEDS: Levothyroxine 50 MCG Tablet GT (06:31)
--- NOTE | 2023-12-05 07:21 | PCM.PN.INT ---
Assessment & Plan Assessment/Plan (1) MRSA bacteremia: (2) Sepsis: PLAN: Plan RECOMMENDATIONS: 1. Antimicrobials per ID recommendations. 2. Management of dysrhythmia per cardiology. 3. Continue appropriate DVT prophylaxis. 4. Decrease respiratory rate to 16, possibly 12 depending response 5. No further Versed or albumin 6. Possible diuresis once off pressors IMPRESSIONS: 1. Sepsis secondary to MRSA bacteremia It is suspected that the patient developed post influenza pneumonia resulting in secondary bacteremia. The patient remains on antimicrobials per ID recommendations. No vegetations were seen on TTE. The patient remains hemodynamically stable. Patient is on pressors at this time, but it may be secondary to accumulation of metabolites from Versed. Pressor requirements may be secondary to alkalosis also. 2. Acute combined respiratory failure Patient reportedly was found to be more lethargic over the weekend and was intubated secondary to decreased mental status. Patient was found to be retaining CO2. Patient was receiving significant Ativan at that time, but was placed on propofol initially. Patient appears to be oversedated at this time. Patient with a respiratory alkalosis at this time, but was found to have a rate of 25. This will be decreased to 16. Patient continues to breathe with the ventilator, will likely transition to a rate of 12. 3. History of atrial fibrillation/sinus pauses/coronary artery disease Cardiology is currently following to assist with medical management. Will defer management on rate/rhythm control strategy. 4. History of paranoid schizophrenia/chronic kidney disease/hypertension/diabetes mellitus/hypothyroidism Complicates care, management, recovery and prognosis. Continue supportive measures as noted above along with basal and sliding scale insulin coverage. Patient remains on trophic feeds. Will likely advance as tolerated TIME: 37 minutes of critical care time spent addressing patient's respiratory failure, hypotension, review of all data and collaboration with care team Subjective Subjective Patient continues to have significant pauses. Patient was taken off of propofol yesterday and placed on Versed. This is currently off. Patient has been on Levophed. Patient did not have a spontaneous breathing trial this morning, but an ABG has been ordered. Objective Data Objective Data Patient did not have a spontaneous breathing trial this morning. Vital Signs: Vital Signs Temp Pulse Resp BP Pulse Ox O2 Del Method O2 Flow Rate 35.9 C L 66 16 105/51 L 96 Mechanical Ventilator 5 12/05/23 05:00 12/05/23 07:00 12/05/23 07:00 12/05/23 07:00 12/05/23 07:00 12/05/23 06:00 12/03/23 10:00 FiO2 30 12/05/23 06:56 Oxygen Flow Rate (L/min) 5 Oxygen Delivery Method Mechanical Ventilator Weight: 102.4 kg Body Mass Index (BMI) 32.3 Intake & Output: Intake and Output for Last 24 Hours 12/03/23 12/04/23 12/05/23 23:59 23:59 23:59 Intake Total 2821.25 / 3091.85 3974.86 / 4200.76 826.27 / 826.27 Output Total 935 / 935 790 / 915 425 / 425 Balance 1886.25 / 2156.85 3184.86 / 3285.76 401.27 / 401.27 Medical Nutrition Assessment Dietitian: Malnutrition Criteria Met Start: 12/01/23 09:36 Freq: Status: Active Protocol: Document 12/01/23 09:36 AG (Rec: 12/01/23 09:36 AG Desktop) Nutrition Malnutrition Evidence of Malnutrition Exists Yes Malnutrition (severe): Acute Illness/Injury Evidenced By Suboptimal Energy Intake ( Severe),Weight Loss (Severe) Intake Problem Inadequate Oral Intake Etiology related to altered mental status, concerns for safe swallowing Signs/Symptoms as evidenced by extended NPO x 6 days Status Active Problem Clinical Problem Acute Disease or Injury Related Malnutrition Etiology severe, acute malnutrition related to inadequate energy intake d/t swallowing difficulties Signs/Symptoms as evidenced by unintentional 4% wt loss < 5 days, PO intake meeting <50% of estimated energy needs x 6 days Status Active Problem Recommendation Dietitian Recommendations/Changes If pt is appropriate for PO nutrition, recommend advance as tolerated to 1800 calorie controlled/cardiac diet, texture/consistency per COMMUNITY REINVESTMENT ACT OFFICER. ONS as needed if able to take PO nutrition. Consider enteral nutrition support in next 24-48 hours in view of extended NPO status, acute malnutrition Lab / Micro Data Attestation: I reviewed the patient's lab results. 12/05/23 03:00 12/05/23 03:00 Labs: Laboratory Results - last 24 hr 12/04/23 04:50: Total Creatine Kinase 32 L, Triglycerides 61 12/04/23 11:55: POC Glucose 243 H 12/04/23 13:30: Vancomycin Trough 26.8 H 12/04/23 16:55: POC Glucose 192 H 12/04/23 21:17: POC Glucose 173 H 12/05/23 03:00: WBC 14.7 H, RBC 2.97 L, Hgb 7.6 L, Hct 23.4 L, MCV 78.8 L, MCH 25.6 L, MCHC 32.5, RDW Std Deviation 50.9 H, RDW Coeff of Saman 19.6 H, Plt Count 156, Immature Gran % (Auto) 4.500 H, Neut % (Auto) 73.2 H, Lymph % (Auto) 15.1 L, [place] % (Auto) 6.1, Eos % (Auto) 0.8, Baso % (Auto) 0.3, Absolute Neuts (auto) 10.8 H, Absolute Lymphs (auto) 2.23, Nucleated RBC % 1.3, Sodium 148 H, Potassium 3.4 L, Chloride 119 H, Carbon Dioxide 24.0, Anion Gap 5, BUN 64 H, Creatinine 3.17 H, Estim Creat Clear Calc 27.85, Est GFR (MDRD) Af Amer 26 L, Est GFR (MDRD) Non-Af 21 L, BUN/Creatinine Ratio 20.2 H, Glucose 171 H, Calcium 8.6 Micro: Microbiology 12/03/23 16:20 Sputum, Induced/Lukens Gram Stain - Final 12/03/23 16:20 Sputum, Induced/Lukens Respiratory Culture - Preliminary Staphylococcus aureus 11/29/23 09:50 Blood Culture (Wb) - Right Hand Blood Culture - Final No growth in 5 days. 12/03/23 16:55 Stool Enteric Bacteriology - Final 12/03/23 16:55 Stool Clostridioides difficile (PCR) - Final 11/28/23 13:16 Blood Culture (Wb) - Left Hand Blood Culture - Final No growth in 5 days. 11/25/23 10:45 Blood Culture (Wb) - Anticubital Right Blood Culture - Final No growth in 5 days. 11/25/23 10:38 Blood Culture (Wb) - Anticubital Left Blood Culture - Final Meth. resistant Staph. aureus 11/25/23 11:45 Urine, Catheterized Urine Culture - Final Culture exhibits no growth. 11/26/23 11:26 Stool Clostridioides difficile (PCR) - Final 11/25/23 11:40 Mucosa - Nose SARS-CoV-2, Influenza & RSV (PCR) - Final ABG Data ABG results: ABG 12/04/23 12/05/23 08:18 05:46 Specimen Type ART ART Sample Site L Radial R Radial pH 7.45 7.49 H Bicarbonate Actual 22.2 21.4 L Total CO2 23 22 Base Excess -2 -2 O2 Saturation 94 L 97 O2 % 35.0 30.0 ABG pCO2 32.1 L 28.3 L ABG pO2 66 L 81 Polo Test Positive Positive Respiration Rate 25 25 O2 Delivery Device Adult Vent ET Tube Vent Mode AC AC Tidal Volume 500.0 450.0 POC PEEP 8 5 Attestation: I personally reviewed and interpreted this ABG as follows: Interpretation: Acute respiratory alkalosis with increased AA gradient Radiography Diagnostic Testing: Radiology Impression Chest X-Ray 12/05/23 05:55 IMPRESSION: 1. Persistent hazy increased density throughout much of the left lung may be due to consolidation, atelectasis, and/or pleural effusion similar to the prior exam. 2. Endotracheal tube tip is 6.3 cm above the jaci. 3. NG tube is in the stomach. Electronically Signed: Tano Martin MD at 5:47 EDT , Rhythm Strip Rhythm Strip: Sinus Rhythm Rate: 66 Ectopy: - (Pauses improved compared to previous days) Physical Exam Const Constitutional Narrative: RASS -3. Good vent synchrony. General Appearance: patient mechanically ventilated HEENT normocephalic and head/scalp atraumatic Eyes PERRL, EOMs intact bilaterally and conjunctivae normal Neck supple General: trachea midline Chest inspection of chest normal Resp normal respiratory effort Auscultation: Negative for rales, rhonchi or wheezes Cardio regular rate, S1 normal heart sound, S2 normal heart sound, no murmurs, no rub and no gallops GI normal to inspection, nondistended, normoactive bowel sounds Extremity General Extremity: edema; Negative for clubbing Skin no rashes or lesions noted Neuro moves all extremities and no focal motor deficits Psych Psych Narrative: Not following commands Mood & Affect: flat affect Charges/Coding Procedures Hospitalists Procedures: 29711 Critical Care 1st Hr
[2023-12-05 08:09] LABS: Ferritin 1638 ng/mL (26-388); Iron 59 ug/dL (65-175); Iron Binding Capacity,Total 146 ug/dL (250-450); PERCENT IRON SATURATION 40.4 % (15.0-55.0)
[2023-12-05] MEDS: Dextrose 5%-Water (1000mL Bag) 1,000 ML 75 ML IV (08:12)
[2023-12-05] MEDS: Chlorhexidine 15 ML PO ×2 (08:13→21:22)
[2023-12-05 09:20] LABS: Vitamin B12 > 2000 pg/mL (211-911)
[2023-12-05] MEDS: Heparin Injection (Vial) 5,000 UNIT/ML VIAL 5000 UNIT SC ×2 (09:51→21:26)
[2023-12-05] MEDS: MEDROXYPROGESTERONE ACETATE 10 MG TABLET GT ×2 (09:52→21:26)
[2023-12-05] MEDS: Pantoprazole Sodium 40 MG in 0.9% Normal Saline (100mL MB+) 100 ML 330 MG IV (10:17)
[2023-12-05] MEDS: Senna/Docusate Sodium 1 Tablet 2 TABLET GT ×2 (10:18→21:25)
[2023-12-05] MEDS: Meropenem 1 GM in 0.9% Normal Saline (100mL MB+) 100 ML IV ×2 (11:01→21:22)
[2023-12-05] MEDS: CHLORHEXIDINE GLUC 2% CLOTH 1 EACH TOWELETTE TOPICAL (11:01)
[2023-12-05] MEDS: Vancomycin Trough/Random Due 1 LAB MC (11:02)
--- NOTE | 2023-12-05 11:12 | CASEMGMT ---
Discharge Planning Updates faxed to [facility] ELIZA Lau. Cassidy Galeano, Discharge Planning Asst.
[2023-12-05 11:22] LABS: Bedside Glucose 136 mg/dL (74-106)
--- NOTE | 2023-12-05 11:24 | PCM.PN.REN ---
Subjective Subjective Remains intubated. Currently on Levophed low-dose. Urine output has improved significantly. Made about 800 cc of urine in the last 24 hours. Already made about 400 cc since this morning. Sodium remains high, slightly better. Other electrolytes are acceptable. Objective Data Objective Data Vital Signs: Vital Signs Temp Pulse Resp BP Pulse Ox O2 Del Method O2 Flow Rate 97.3 F L 73 12 117/55 L 100 Mechanical Ventilator 5 12/05/23 11:00 12/05/23 11:00 12/05/23 11:00 12/05/23 11:00 12/05/23 11:00 12/05/23 11:00 12/03/23 10:00 FiO2 30 12/05/23 11:00 Oxygen Flow Rate (L/min) 5 Oxygen Delivery Method Mechanical Ventilator Weight: 102.4 kg Body Mass Index (BMI) 32.3 Intake & Output: Intake and Output for Last 24 Hours 12/03/23 12/04/23 12/05/23 23:59 23:59 23:59 Intake Total 2821.25 / 3091.85 3974.86 / 4200.76 1982.87 / 1982. Output Total 935 / 935 790 / 915 425 / 425 Balance 1886.25 / 2156.85 3184.86 / 3285.76 1558.87 / 1558.87 Medical Nutrition Assessment Dietitian: Malnutrition Criteria Met Start: 12/01/23 09:36 Freq: Status: Active Protocol: Document 12/05/23 11:01 (Rec: 12/05/23 11:01 Desktop) Nutrition Malnutrition Evidence of Malnutrition Exists Yes Malnutrition (severe): Acute Illness/Injury Evidenced By Suboptimal Energy Intake ( Severe),Weight Loss (Severe) Intake Problem Inadequate Oral Intake Etiology related to decreased ability to consume sufficient energy to meet estimated nutrient needs Signs/Symptoms as evidenced by extended NPO status x 9 days and intubation with need for enteral nutrition. Status Active Problem Clinical Problem Acute Disease or Injury Related Malnutrition Etiology severe, acute malnutrition related to inadequate energy intake d/t swallowing difficulties Signs/Symptoms as evidenced by unintentional 4% wt loss < 5 days, PO intake meeting <50% of estimated energy needs x 6 days Status Active Problem Recommendation Dietitian Recommendations/Changes NPO while intubated; Will adjust EN via OGT- Vital AF 1. 2 at goal rate of 60mL/hour w/ 100mL H2O flush every 4 hours to provide 1728 calories, 108 g protein, and 1767mL total fluid/day. Would start at 25mL /hour and increase by 15mL/ hour every 8 hours as tolerated until goal rate is achieved. Lab / Micro Data 12/05/23 03:00 12/05/23 03:00 Labs: Laboratory Results - last 24 hr 12/02/23 03:45: Diff Path Review Reviewed 12/04/23 04:50: Total Creatine Kinase 32 L, Triglycerides 61 12/04/23 11:55: POC Glucose 243 H 12/04/23 13:30: Vancomycin Trough 26.8 H 12/04/23 16:55: POC Glucose 192 H 12/04/23 21:17: POC Glucose 173 H 12/05/23 03:00: WBC 14.7 H, RBC 2.97 L, Hgb 7.6 L, Hct 23.4 L, MCV 78.8 L, MCH 25.6 L, MCHC 32.5, RDW Std Deviation 50.9 H, RDW Coeff of Saman 19.6 H, Plt Count 156, Immature Gran % (Auto) 4.500 H, Neut % (Auto) 73.2 H, Lymph % (Auto) 15.1 L, [place] % (Auto) 6.1, Eos % (Auto) 0.8, Baso % (Auto) 0.3, Absolute Neuts (auto) 10.8 H, Absolute Lymphs (auto) 2.23, Nucleated RBC % 1.3, Sodium 148 H, Potassium 3.4 L, Chloride 119 H, Carbon Dioxide 24.0, Anion Gap 5, BUN 64 H, Creatinine 3.17 H, Estim Creat Clear Calc 27.85, Est GFR (MDRD) Af Amer 26 L, Est GFR (MDRD) Non-Af 21 L, BUN/Creatinine Ratio 20.2 H, Glucose 171 H, Calcium 8.6, Iron 59 L, TIBC 146 L, Iron Saturation 40.4, Ferritin 1638 H, Folate 10.40 12/05/23 08:35: Vitamin B12 > 2000 H 12/05/23 09:49: POC Glucose 136 H Micro: Microbiology 12/03/23 16:20 Sputum, Induced/Lukens Gram Stain - Final 12/03/23 16:20 Sputum, Induced/Lukens Respiratory Culture - Preliminary Staphylococcus aureus 11/29/23 09:50 Blood Culture (Wb) - Right Hand Blood Culture - Final No growth in 5 days. 12/03/23 16:55 Stool Enteric Bacteriology - Final 12/03/23 16:55 Stool Clostridioides difficile (PCR) - Final 11/28/23 13:16 Blood Culture (Wb) - Left Hand Blood Culture - Final No growth in 5 days. 11/25/23 10:45 Blood Culture (Wb) - Anticubital Right Blood Culture - Final No growth in 5 days. 11/25/23 10:38 Blood Culture (Wb) - Anticubital Left Blood Culture - Final Meth. resistant Staph. aureus 11/25/23 11:45 Urine, Catheterized Urine Culture - Final Culture exhibits no growth. 11/26/23 11:26 Stool Clostridioides difficile (PCR) - Final 11/25/23 11:40 Mucosa - Nose SARS-CoV-2, Influenza & RSV (PCR) - Final ABG Data ABG results: ABG 12/05/23 05:46 Specimen Type ART Sample Site R Radial pH 7.49 H Bicarbonate Actual 21.4 L Total CO2 22 Base Excess -2 O2 Saturation 97 O2 % 30.0 ABG pCO2 28.3 L ABG pO2 81 Polo Test Positive Respiration Rate 25 O2 Delivery Device ET Tube Vent Mode AC Tidal Volume 450.0 POC PEEP 5 Radiography Diagnostic Testing: Radiology Impression Chest X-Ray 12/05/23 05:55 IMPRESSION: 1. Persistent hazy increased density throughout much of the left lung may be due to consolidation, atelectasis, and/or pleural effusion similar to the prior exam. 2. Endotracheal tube tip is 6.3 cm above the jaci. 3. NG tube is in the stomach. Electronically Signed: Tano Martin MD at 5:47 EDT , Rhythm Strip Rhythm Strip: Sinus Rhythm Rate: 66 Ectopy: - (Pauses improved compared to previous days) Physical Exam Narrative intubated no obvious distress no pallor no icterus no JVD s1s2 no murmurs lungs clear abdomen soft no organomegaly no edema no cyanosis ratliff + Assessment & Plan Assessment/Plan (1) JULIETTE (acute kidney injury): PLAN: Possible CKD stage IIIb Last creatinine prior to this admission was 1.5 from late last year. Most of the hospitalization his creatinine was around 1.8-1.9. Possible CKD stage IIIb. Urine analysis shows protein, cells. When Ratliff catheter is out, we will repeat urine analysis Unlikely obstructive JULIETTE is likely ATN due to sepsis. Currently on very low-dose of Levophed otherwise blood pressure is acceptable. Creatinine slightly better. Hypernatremia. Sodium is better at 148.
[2023-12-05] MEDS: Vital AF 1.2 Cal Liquid 1,000 ML 25 ML GT (11:34)
[2023-12-05] MEDS: Insulin Glargine-YFGN 100 UNIT/ML Pen 25 UNIT SC ×2 (11:34→21:37)
--- NOTE | 2023-12-05 11:41 | PCM.PN.HOSP ---
Reason for Visit Reason for Visit: Diagnoses Sepsis, unspecified organism (11/25/23) Methicillin resistant Staphylococcus aureus infection as the cause of diseases classified elsewhere (11/25/23) Essential (primary) hypertension (11/25/23) Unspecified atrial fibrillation (11/25/23) Pneumonia, unspecified organism (11/25/23) Acute kidney failure, unspecified (11/25/23) Bacteremia (11/25/23) Subjective Subjective Patient is a 63-year-old male who initially presented to hospital on 11/25/2023 with worsening shortness of breath and hypoxia. Patient was previously hospitalized here from 11/17 to 11/19, presented with similar symptoms and was found to be positive for an influenza A infection and suspected COPD exacerbation. Improved with treatment with Tamiflu and steroids, did not require supplemental oxygen on discharge. On arrival on 11/24 he was noted to have a worsening left lung opacity, elevated WBC count, mild elevated lactate and tachypnea with mild hypoxia. Blood cultures were positive for MRSA bacteremia, which was suspected due to post flu pneumonia. TTE showed no abnormalities. Hospital course has been complicated by A-fib with RVR with sinus pauses, mild encephalopathy versus delirium, and acute hypoxic and hypercapnic respiratory failure requiring intubation. Duty Engineer, cardiology, infectious disease, nephrology and neurology have all followed. Patient is currently intubated and sedated. On low vent settings but does have worsening left lung opacities and suspected sizable pleural effusion. Notably is approximately + 10 L since admission. Were attempting to diuresis but this was limited by hypotension and worsening JULIETTE. Nephrology suspected JULIETTE secondary to ATN from shock and patient is now showing signs of kidney improvement as of 12/04, with increased urine output and improving creatinine. No acute events overnight. Patient remains intubated and sedated this morning. Not following any commands. Per nursing staff, failed SBT this morning as she did not initiate breathing well on his own, likely due to lingering sedation effects given his JULIETTE. Objective Data Objective Data Vital Signs: Vital Signs Temp Pulse Resp BP Pulse Ox O2 Del Method O2 Flow Rate 97.3 F L 73 12 117/55 L 100 Mechanical Ventilator 5 12/05/23 11:00 12/05/23 11:00 12/05/23 11:12/05/23 11:12/05/23 11:00 12/05/23 11:00 12/03/23 10:00 FiO2 30 12/05/23 11:00 Oxygen Flow Rate (L/min) 5 Oxygen Delivery Method Mechanical Ventilator Weight: 102.4 kg Body Mass Index (BMI) 32.3 Intake & Output: Intake and Output for Last 24 Hours 12/03/23 12/04/23 12/05/23 23:59 23:59 23:59 Intake Total 2821.25 / 3091.85 3974.86 / 4200.76 / Output Total 935 / 935 790 / 915 425 / 425 Balance 1886.25 / 2156.85 3184.86 / 3285.76 1558.87 / 1558.87 Medical Nutrition Assessment Dietitian: Malnutrition Criteria Met Start: 12/01/23 09:36 Freq: Status: Active Protocol: Document 12/05/23 11:01 (Rec: 12/05/23 11:01 Desktop) Nutrition Malnutrition Evidence of Malnutrition Exists Yes Malnutrition (severe): Acute Illness/Injury Evidenced By Suboptimal Energy Intake ( Severe),Weight Loss (Severe) Intake Problem Inadequate Oral Intake Etiology related to decreased ability to consume sufficient energy to meet estimated nutrient needs Signs/Symptoms as evidenced by extended NPO status x 9 days and intubation with need for enteral nutrition. Status Active Problem Clinical Problem Acute Disease or Injury Related Malnutrition Etiology severe, acute malnutrition related to inadequate energy intake d/t swallowing difficulties Signs/Symptoms as evidenced by unintentional 4% wt loss < 5 days, PO intake meeting <50% of estimated energy needs x 6 days Status Active Problem Recommendation Dietitian Recommendations/Changes NPO while intubated; Will adjust EN via OGT- Vital AF 1. 2 at goal rate of 60mL/hour w/ 100mL H2O flush every 4 hours to provide 1728 calories, 108 g protein, and 1767mL total fluid/day. Would start at 25mL /hour and increase by 15mL/ hour every 8 hours as tolerated until goal rate is achieved. Lab / Micro Data 12/05/23 03:00 12/05/23 03:00 Labs: Laboratory Results - last 24 hr 12/02/23 03:45: Diff Path Review Reviewed 12/04/23 04:50: Total Creatine Kinase 32 L, Triglycerides 61 12/04/23 11:55: POC Glucose 243 H 12/04/23 13:30: Vancomycin Trough 26.8 H 12/04/23 16:55: POC Glucose 192 H 12/04/23 21:17: POC Glucose 173 H 12/05/23 03:00: WBC 14.7 H, RBC 2.97 L, Hgb 7.6 L, Hct 23.4 L, MCV 78.8 L, MCH 25.6 L, MCHC 32.5, RDW Std Deviation 50.9 H, RDW Coeff of Saman 19.6 H, Plt Count 156, Immature Gran % (Auto) 4.500 H, Neut % (Auto) 73.2 H, Lymph % (Auto) 15.1 L, Roosevelt % (Auto) 6.1, Eos % (Auto) 0.8, Baso % (Auto) 0.3, Absolute Neuts (auto) 10.8 H, Absolute Lymphs (auto) 2.23, Nucleated RBC % 1.3, Sodium 148 H, Potassium 3.4 L, Chloride 119 H, Carbon Dioxide 24.0, Anion Gap 5, BUN 64 H, Creatinine 3.17 H, Estim Creat Clear Calc 27.85, Est GFR (MDRD) Af Amer 26 L, Est GFR (MDRD) Non-Af 21 L, BUN/Creatinine Ratio 20.2 H, Glucose 171 H, Calcium 8.6, Iron 59 L, TIBC 146 L, Iron Saturation 40.4, Ferritin 1638 H, Folate 10.40 12/05/23 08:35: Vitamin B12 > 2000 H 12/05/23 09:49: POC Glucose 136 H Micro: Microbiology 12/03/23 16:20 Sputum, Induced/Lukens Gram Stain - Final 12/03/23 16:20 Sputum, Induced/Lukens Respiratory Culture - Preliminary Staphylococcus aureus 11/29/23 09:50 Blood Culture (Wb) - Right Hand Blood Culture - Final No growth in 5 days. 12/03/23 16:55 Stool Enteric Bacteriology - Final 12/03/23 16:55 Stool Clostridioides difficile (PCR) - Final 11/28/23 13:16 Blood Culture (Wb) - Left Hand Blood Culture - Final No growth in 5 days. 11/25/23 10:45 Blood Culture (Wb) - Anticubital Right Blood Culture - Final No growth in 5 days. 11/25/23 10:38 Blood Culture (Wb) - Anticubital Left Blood Culture - Final Meth. resistant Staph. aureus 11/25/23 11:45 Urine, Catheterized Urine Culture - Final Culture exhibits no growth. 11/26/23 11:26 Stool Clostridioides difficile (PCR) - Final 11/25/23 11:40 Mucosa - Nose SARS-CoV-2, Influenza & RSV (PCR) - Final ABG Data ABG results: ABG 12/05/23 05:46 Specimen Type ART Sample Site R Radial pH 7.49 H Bicarbonate Actual 21.4 L Total CO2 22 Base Excess -2 O2 Saturation 97 O2 % 30.0 ABG pCO2 28.3 L ABG pO2 81 Polo Test Positive Respiration Rate 25 O2 Delivery Device ET Tube Vent Mode AC Tidal Volume 450.0 POC PEEP 5 Radiography Diagnostic Testing: Radiology Impression Chest X-Ray 12/05/23 05:55 IMPRESSION: 1. Persistent hazy increased density throughout much of the left lung may be due to consolidation, atelectasis, and/or pleural effusion similar to the prior exam. 2. Endotracheal tube tip is 6.3 cm above the jaci. 3. NG tube is in the stomach. Electronically Signed: Tano Martin MD at 5:47 EDT , Rhythm Strip Rhythm Strip: Sinus Rhythm Rate: 66 Ectopy: - (Pauses improved compared to previous days) Physical Exam Const Constitutional Narrative: Intubated and sedated. Not following commands. Obese. HEENT normocephalic, head/scalp atraumatic and nasal mucous membranes and turbinates normal Eyes EOMs intact bilaterally Chest inspection of chest normal Resp normal respiratory effort and no use of accessory muscles Resp Narrative: Intubated and mechanically ventilated. On low vent settings. Good air movement on right, diminished breath sounds on left throughout. No wheezing noted. Cardio regular rate, regular rhythm, no murmurs and peripheral pulses 2+ throughout GI normal to inspection, nondistended, normoactive bowel sounds, soft to palpation, non-tender and non-distended Extremity Extremity Narrative: No peripheral edema noted. Skin no rashes or lesions noted Assessment & Plan Assessment/Plan (1) MRSA bacteremia: (2) Sepsis: (3) Pneumonia: (4) Respiratory failure: (5) JULIETTE (acute kidney injury): PLAN: Plan Patient is a 63-year-old male who presented to [facility] ED on 11/25/2023 with worsening shortness of breath. 1. Acute hypoxic and hypercapnic respiratory failure Initially hypoxia presumed secondary to secondary MRSA pneumonia after recent flu pneumonia. Had worsening mental status and hypoxia on 12/02 requiring intubation. She was found to be hypercapnic postintubation. This was suspected secondary to decreased respiratory drive from possible overmedication as notable below. ? Duty Engineer following. Remains intubated and sedated. On fairly low vent settings with FiO2 30% and low PEEP. Chest x-ray 12/04 does show persistent left lung opacities suspected secondary to MRSA pneumonia with volume overload, treatment as noted below. Failed SAT/SBT on 12/04 likely due to oversedation. Further management per janitor custodian. 2. Hypotension with concern for shock, sepsis without shock secondary to MRSA bacteremia Initially presented with sepsis and found to have MRSA bacteremia presumed secondary to a MRSA pneumonia that developed post influenza pneumonia. TTE showed no valvular abnormalities. Developed hypotension after intubation and sedation, suspected that hypotension is likely secondary to sedation requirements. ? Duty Engineer and ID following. Remains hemodynamically stable on very low Levophed requirements. Meropenem added on 12/03 given concern for septic shock of unclear origin. Will continue vancomycin and meropenem for now, appreciate ID recs. Weaning sedation as able. Levophed as needed to maintain MAP greater than 65. 3. Acute metabolic encephalopathy Patient noted to have worsening mentation on 11/27 of unclear etiology. Neurology was consulted for questionable seizure activity. MRI brain negative, EEG negative. Lab workup fairly benign. Neurology suspected toxic metabolic encephalopathy that was multifactorial in setting of sepsis, pneumonia, JULIETTE, delirium and polypharmacy from sedative medications of Ativan, Haldol and DPA, as well as a poor mental status at baseline. Patient required intubation on 12/02 as noted above. ? Neurology followed. Currently intubated and sedated. Holding home Haldol and Ativan to minimize use of sedation medications per neurology recommendations. Treating underlying causes. 4. JULIETTE on suspected CKD stage IIIb Creatinine 2.05 on admit, baseline creatinine around 1.8-2.1. Noted to have acutely worsened creatinine to 3.08 on 11/28 which then recovered back to baseline by 12/01. However, again had worsening of creatinine to 3.27 on 12/03 with decreased urine output suspected to be secondary to ATN from sepsis. ? Nephrology following. Creatinine mildly improved to 3.17 on 12/04. Urine output significantly improved on 12/04. Per nephro, okay to continue very low-dose Levophed. Monitor daily BMP and urine output. 5. Volume overload ? Patient noted to be +10 L from volume status standpoint on 12/04, secondary to heavy IV fluids administered in setting of sepsis and concern for shock as noted above. Duty Engineer and nephrology following as above. Diuresis limited by hypotension as noted above. Will likely attempt diuresis again in the next few days pending patient's kidney function and urine output as well as blood pressure trend. 6. A-fib with RVR, bradycardia with sinus pauses ? Cardiology evaluated on 11/29. Patient was noted to be on high-dose beta-diogo at that time and had some pauses on monitoring 6 seconds, unclear patient was symptomatic with these pauses. Not an urgent pacemaker candidate given bacteremia. Beta-diogo discontinued for now. Has had improvement in heart rate and no recent sinus pauses. Continue cardiac monitoring. 7. Hypernatremia, improving ? Nephrology following as above. Presumed secondary to dehydration. Sodium peaked at 152 on 12/02, improved to 148 on 12/04. Continue 200 mL H2O with tube feeds every 4 hours. Monitor daily sodium. 8. Acute on chronic anemia ? Known history of iron deficiency anemia, was on home iron supplement. Hemoglobin 10.5 on admit, slowly downtrending since then. Most recent hemoglobin 7.6 on 12/04. No active signs of bleeding. Iron studies on 12/04 with ferritin 1638, consistent with anemia of chronic disease. Trend CBC daily. Chronic medical conditions: ? Obesity: BMI 32 on admit. Complicates hospital course, care and prognosis. ? Paranoid schizophrenia/anxiety and depression/sexual aggression: Lives in [facility]. Continue home Depakote, holding home Haldol and Ativan as noted above. ? Type 2 diabetes mellitus: Home regimen of insulin glargine 35 units at night, lispro 17 units with meals, metformin 1000 mg twice daily, Jardiance 25 mg daily. Blood sugars elevated while inpatient. Continue Lantus 25 units twice daily and sliding-scale insulin every 4 hours as needed with tube feeds for now. ? Hypothyroidism: Continue home Synthroid. ? CAD/hypertension/hyperlipidemia: Continue home aspirin, statin, amlodipine. Holding home Lopressor due to bradycardia as noted above. Holding home losartan and Lasix for JULIETTE. ? Tobacco abuse: Nicotine replacement therapy available as needed. DVT prophylaxis: Heparin subcu CODE STATUS: Full code, verified Expected disposition: TBD Total clinical time spent by myself addressing the patient's medical issues, reviewing all the data, and collaborating with patient's care team: 50 minutes. Charges/Coding Visit Charges Inpatient E&M: 06657 [facility] Hosp L3
[2023-12-05] MEDS: Insulin Lispro 100 UNIT/ML INSULN.PEN SC ×3 (14:20→21:36)
[2023-12-05 14:29] LABS: Vancomycin, Random Level 19.6 ug/mL (0.0-15.0)
[2023-12-05 14:40] LABS: Bedside Glucose 192 mg/dL (74-106)
--- NOTE | 2023-12-05 16:11 | PCM.RX.CS ---
Consult Antibiotic Management Pharmacy has been consulted to manage selected antibiotic: Vancomycin Type of Intervention Type of Consult: Follow-up Suspected Infection Suspected Infection: Pneumonia Prior Doses of Antibiotics Prior Doses of Antibiotics Received/Current Regimen: Previously on 1000mg iv q24h. Labs Labs: Sodium 148 mmol/L (136-145) H 12/05/23 03:00 Potassium 3.4 mmol/L (3.5-5.1) L 12/05/23 03:00 Chloride 119 mmol/L (98-107) H 12/05/23 03:00 Carbon Dioxide 24.0 mmol/L (21.0-32.0) 12/05/23 03:00 Anion Gap 5 (5-15) 12/05/23 03:00 BUN 64 mg/dL (7-18) H 12/05/23 03:00 Creatinine 3.17 mg/dL (0.70-1.30) H 12/05/23 03:00 Est GFR (MDRD) Af Amer 26 mL/min (>60) L 12/05/23 03:00 Est GFR (MDRD) Non-Af 21 mL/min (>60) L 12/05/23 03:00 BUN/Creatinine Ratio 20.2 RATIO (10-20) H 12/05/23 03:00 Glucose 171 mg/dL (74-106) H 12/05/23 03:00 Vancomycin Trough 26.8 ug/mL (5.0-15.0) H 12/04/23 13:30 Random Vancomycin 19.6 ug/mL (0.0-15.0) H 12/05/23 12:55 Microbiology Microbiology: Microbiology 12/03/23 16:20 Sputum, Induced/Lukens Gram Stain - Final 12/03/23 16:20 Sputum, Induced/Lukens Respiratory Culture - Preliminary Staphylococcus aureus Yeast, not Evy albicans 11/29/23 09:50 Blood Culture (Wb) - Right Hand Blood Culture - Final No growth in 5 days. 12/03/23 16:55 Stool Enteric Bacteriology - Final 12/03/23 16:55 Stool Clostridioides difficile (PCR) - Final 11/28/23 13:16 Blood Culture (Wb) - Left Hand Blood Culture - Final No growth in 5 days. 11/25/23 10:45 Blood Culture (Wb) - Anticubital Right Blood Culture - Final No growth in 5 days. 11/25/23 10:38 Blood Culture (Wb) - Anticubital Left Blood Culture - Final Meth. resistant Staph. aureus 11/25/23 11:45 Urine, Catheterized Urine Culture - Final Culture exhibits no growth. 11/26/23 11:26 Stool Clostridioides difficile (PCR) - Final 11/25/23 11:40 Mucosa - Nose SARS-CoV-2, Influenza & RSV (PCR) - Final Dosing Weight Weight used for dosin.4 kg Estimated Creatinine Clearance Estimated Creatinine Clearance: 28 ml/min Goal Trough Goal Trough: 15-20 mcg/mL Pharmacy Plan for Drug Dosing Pharmacy Plan for Drug Dosing: Random level today , ~48hrs post dose, was 19.6 (desired level 15-20). Renal CrCl calculated as ~28ml/min using adjusted body weight of 84.8kg. Recommend a dose of 1000mg iv q36h with trough before 3rd dose. Pharmacy Service will continue to monitor and adjust dosing as required. Follow-Up Labs Follow-Up Labs: Trough: Vancomycin (3.27.24 @0730)
--- NOTE | 2023-12-05 16:15 | PCM.PN.ID ---
Physical Exam Narrative On vent, no fever Const no apparent distress Resp Effort and Inspection: mechanically ventilated Cardio regular rate and regular rhythm GI soft to palpation, non-tender and non-distended Skin no rashes or lesions noted ID ID: Route of nutrition/ use of supplements: [] Nutritional Intake: [] IV Site: [] Browning Catheter: [] Assessment & Plan Assessment/Plan (1) MRSA bacteremia: PLAN: suspected due to post-flu pneumonia. Cont vanc, aurelia. No veg seen on TTE. Bcx cleared 11/27. Wbc much improved. Will follow (2) Sepsis:
[2023-12-05 18:20] LABS: Bedside Glucose 181 mg/dL (74-106)
[2023-12-05] MEDS: Vancomycin IV 1,000 MG/200 ML BAG 200 MG IV (20:08)
[2023-12-05] MEDS: 0.9% Normal Saline (250mL Bag) 250 ML 15 ML IV (21:24)
[2023-12-05] MEDS: Divalproex Sodium 250 MG Tablet PO (21:27)
[2023-12-05] MEDS: traZODone 100 MG Tablet GT (21:27)
[2023-12-05] MEDS: Atorvastatin Calcium 80 MG Tablet GT (21:27)
[2023-12-05] MEDS: Divalproex Sodium 250 MG Tablet 500 MG PO (21:28)
[2023-12-05 21:54] LABS: Bedside Glucose 182 mg/dL (74-106)
[2023-12-05 23:12] LABS: Allen Test Positive; Base Excess -6 mmol/L (-2 to +2); Bicarbonate 21.7 mmol/L (22-26); Blood Gas Specimen Type ART; Mode AC; O2 Delivery Device Adult Vent; PEEP 5; PO2 74 mmHG (75-100); RR 12; SITE L Radial; SO2 92 % (95-99); Total Carbon Dioxide 23 mmol/L; pCO2 49.8 mmHg (35-45); pH 7.25 (7.35-7.45)
--- NOTE | 2023-12-05 23:41 | CPS ---
RT concerned patient was becoming acidotic. ABG drawn and results were pH-7.24, CO2-49.8, HCO3-21.7. RR increased from 12 to 16 at this time. Repeat ABG will be drawn in AM. Nursing notified.
[2023-12-06] VITALS (35 sets, daily range): BP systolic 84–132; BP diastolic 49–71; PULSE 61–110; RESP 16–19; TEMP 35.5–36.8; O2SAT 93–100; BMI 33.2
[2023-12-06] MEDS: Albuterol 2.5 MG/3 ML VIAL.NEB. INHALATION (01:32)
[2023-12-06 01:44] LABS: Bedside Glucose 181 mg/dL (74-106)
[2023-12-06] MEDS: Insulin Lispro 100 UNIT/ML INSULN.PEN SC ×6 (01:45→21:37)
[2023-12-06 03:18] LABS: Hematocrit 26.8 % (40-54); Hemoglobin 8.3 g/dL (13.0-16.5); Mean Corpuscular Hgb 26.2 pg (27.0-32.0); Mean Corpuscular Volume 84.5 fL (80-94); POSITIVE MORPHOLOGY YES; Platelet Count 155 K/mm3 (150-450); RBC Distribution Width CV 20.5 % (11.6-14.6); RBC Distribution Width SD 57.2 fl (35.1-43.9); Red Blood Count 3.17 M/mm3 (4.6-6.2)
[2023-12-06 03:21] LABS: Scan Indicated on CBC? Y/N YES- FLAGS NOTED
[2023-12-06 03:34] LABS: Anion Gap 8 (5-15); BUN 64 mg/dL (7-18); BUN/Creat Ratio 17.7 RATIO (10-20); Chloride 114 mmol/L (98-107); Creatinine, Serum 3.61 mg/dL (0.70-1.30); EST Glomerular Filtration Rate 18 mL/min (>60); Est Glom Filt Rate - Afr Amer 22 mL/min (>60); Estimated Creatinine Clearance 24.46 ml/min; Glucose 240 mg/dL (74-106); Potassium 4.2 mmol/L (3.5-5.1); Sodium Level 145 mmol/L (136-145)
[2023-12-06] MEDS: fentaNYL drip 100 ML 2.5 MCG CONT INF (04:55)
[2023-12-06] MEDS: Levothyroxine 50 MCG Tablet GT (04:56)
[2023-12-06 05:23] LABS: Bedside Glucose 211 mg/dL (74-106)
[2023-12-06 05:43] LABS: Allen Test Positive; Base Excess -5 mmol/L (-2 to +2); Bicarbonate 20.9 mmol/L (22-26); Blood Gas Specimen Type ART; Mode AC; O2 Delivery Device Adult Vent; PEEP 5; PO2 78 mmHG (75-100); RR 16; SITE R Radial; SO2 94 % (95-99); Total Carbon Dioxide 22 mmol/L; pCO2 39.9 mmHg (35-45); pH 7.33 (7.35-7.45)
--- NOTE | 2023-12-06 05:55 | RAD_ITS ---
INDICATION: resp failure vent EXAMINATION/TECHNIQUE: X-RAY - XR Chest 1 View COMPARISON: Chest x-ray from one day prior FINDINGS: LINES/DEVICES: ET tube tip just below level of clavicular heads. Enteric tube tip within distal gastric lumen. LUNGS: Stable moderate to large layering left pleural effusion. Mild residual left basilar opacification. No pneumothorax detected. MEDIASTINUM AND CARDIOVASCULAR STRUCTURES: Heart size within normal limits. Mediastinal contours unremarkable. BONES AND SOFT TISSUES: No acute findings. RAD/Chest 1 View (Portable) IMPRESSION: Persistent left pleural effusion and left basilar opacification Electronically Signed: Ramy Watson MD at 4:45 EDT ,
[2023-12-06] MEDS: Furosemide 40 MG/4 ML Vial IV (06:32)
--- NOTE | 2023-12-06 06:37 | PN.CC_ITS ---
Assessment & Plan Assessment/Plan (1) MRSA bacteremia: (2) Sepsis: PLAN: Plan RECOMMENDATIONS: 1. Antimicrobials per ID recommendations. 2. Management of dysrhythmia per cardiology. 3. Continue appropriate DVT prophylaxis. 4. Attempt diuresis 5. Potentially reinitiate propofol 6. Continue tube feeds IMPRESSIONS: 1. Sepsis secondary to MRSA bacteremia It is suspected that the patient developed post influenza pneumonia resulting in secondary bacteremia. The patient remains on antimicrobials per ID recommendations. No vegetations were seen on TTE. The patient remains hemodynamically stable. Patient is not on pressors at this time. White blood cells up significantly today compared to yesterday, but similar to the day prior. No fevers been noted. 2. Acute combined respiratory failure Patient reportedly was found to be more lethargic over the weekend and was intubated secondary to decreased mental status. Patient was found to be retaining CO2. Patient was receiving significant Ativan at that time, but was placed on propofol initially. Patient appears to be oversedated at this time. Continue current vent settings. Pleural effusion noted on chest x-ray with hyp oxia on spontaneous breathing trial. Will attempt diuresis. Clinical suspicion patient is off of the Starling curve as he is positive almost 20 L over the course of his hospitalization. 3. History of atrial fibrillation/sinus pauses/coronary artery disease Cardiology is currently following to assist with medical management. Will defer management on rate/rhythm control strategy. Rate has been well-controlled 4. History of paranoid schizophrenia/chronic kidney disease/hypertension/diabetes mellitus/hypothyroidism Complicates care, management, recovery and prognosis. Continue supportive measures as noted above along with basal and sliding scale insulin coverage. Patient almost a full tube feeds TIME: 32 minutes of critical care time spent addressing patient's respiratory failure, hypotension, review of all data and collaboration with care team Subjective Subjective Patient did okay overnight. No sedation has been required, but patient has remained on fentanyl. Patient tolerating tube feeds. Nursing did report increased secretions following bath. Patient unable to tolerate spontaneous breathing trial secondary to hypoxia. Chest x-ray showed continued large left effusion. No pressors have been required. Objective Data Objective Data Vital Signs: Vital Signs Temp Pulse Resp BP Pulse Ox O2 Del Method O2 Flow Rate 36.4 C L 99 16 114/57 L 100 Mechanical Ventilator 45 12/06/23 06:00 12/06/23 06:00 12/06/23 06:00 12/06/23 06:00 12/06/23 06:00 12/06/23 06:00 12/06/23 06:00 FiO2 45 12/06/23 04:31 Oxygen Flow Rate (L/min) 45 Oxygen Delivery Method Mechanical Ventilator Weight: 105 kg Body Mass Index (BMI) 33.2 Intake & Output: Intake and Output for Last 24 Hours 12/04/23 12/05/23 12/06/23 23:59 23:59 23:59 Intake Total 3974.86 / 4200.76 3233.58 / 3383.58 872.93 / 872.93 Output Total 790 / 915 585 / 625 165 / 165 Balance 3184.86 / 3285.76 2648.58 / 2758.58 707.93 / 707.93 Medical Nutrition Assessment Dietitian: Malnutrition Criteria Met Start: 12/01/23 09:36 Freq: Status: Active Protocol: Document 12/05/23 11:01 AG (Rec: 12/05/23 11:01 AG Desktop) Nutrition Malnutrition Evidence of Malnutrition Exists Yes Malnutrition (severe): Acute Illness/Injury Evidenced By Suboptimal Energy Intake ( Severe),Weight Loss (Severe) Intake Problem Inadequate Oral Intake Etiology related to decreased ability to consume sufficient energy to meet estimated nutrient needs Signs/Symptoms as evidenced by extended NPO status x 9 days and intubation with need for enteral nutrition. Status Active Problem Clinical Problem Acute Disease or Injury Related Malnutrition Etiology severe, acute malnutrition related to inadequate energy intake d/t swallowing difficulties Signs/Symptoms as evidenced by unintentional 4% wt loss < 5 days, PO intake meeting <50% of estimated energy needs x 6 days Status Active Problem Recommendation Dietitian Recommendations/Changes NPO while intubated; Will adjust EN via OGT- Vital AF 1. 2 at goal rate of 60mL/hour w/ 100mL H2O flush every 4 hours to provide 1728 calories, 108 g protein, and 1767mL total fluid/day. Would start at 25mL /hour and increase by 15mL/ hour every 8 hours as tolerated until goal rate is achieved. Lab / Micro Data Attestation: I reviewed the patient's lab results. 12/06/23 03:05 12/06/23 03:05 Labs: Laboratory Results - last 24 hr 12/02/23 03:45: Diff Path Review Reviewed 12/05/23 03:00: Iron 59 L, TIBC 146 L, Iron Saturation 40.4, Ferritin 1638 H, Folate 10.40 12/05/23 08:35: Vitamin B12 > 2000 H 12/05/23 09:49: POC Glucose 136 H 12/05/23 12:55: Random Vancomycin 19.6 H 12/05/23 14:19: POC Glucose 192 H 12/05/23 17:57: POC Glucose 181 H 12/05/23 21:36: POC Glucose 182 H 12/06/23 01:25: POC Glucose 181 H 12/06/23 03:05: WBC 24.0 H, RBC 3.17 L, Hgb 8.3 L, Hct 26.8 L, MCV 84.5 D, MCH 26.2 L, MCHC 31.0 L, RDW Std Deviation 57.2 H, RDW Coeff of Saman 20.5 H, Plt Count 155, Sodium 145, Potassium 4.2, Chloride 114 H, Carbon Dioxide 23.0, Anion Gap 8, BUN 64 H, Creatinine 3.61 H, Estim Creat Clear Calc 24.46, Est GFR (MDRD) Af Amer 22 L, Est GFR (MDRD) Non-Af 18 L, BUN/Creatinine Ratio 17.7, Glucose 240 H, Calcium 9.0 12/06/23 05:01: POC Glucose 211 H Micro: Microbiology 12/03/23 16:20 Sputum, Induced/Lukens Gram Stain - Final 12/03/23 16:20 Sputum, Induced/Lukens Respiratory Culture - Preliminary Staphylococcus aureus Yeast, not Evy albicans 11/29/23 09:50 Blood Culture (Wb) - Right Hand Blood Culture - Final No growth in 5 days. 12/03/23 16:55 Stool Enteric Bacteriology - Final 12/03/23 16:55 Stool Clostridioides difficile (PCR) - Final 11/28/23 13:16 Blood Culture (Wb) - Left Hand Blood Culture - Final No growth in 5 days. 11/25/23 10:45 Blood Culture (Wb) - Anticubital Right Blood Culture - Final No growth in 5 days. 11/25/23 10:38 Blood Culture (Wb) - Anticubital Left Blood Culture - Final Meth. resistant Staph. aureus 11/25/23 11:45 Urine, Catheterized Urine Culture - Final Culture exhibits no growth. 11/26/23 11:26 Stool Clostridioides difficile (PCR) - Final 11/25/23 11:40 Mucosa - Nose SARS-CoV-2, Influenza & RSV (PCR) - Final ABG Data ABG results: ABG 12/05/23 12/06/23 23:07 05:40 Specimen Type ART ART Sample Site L Radial R Radial pH 7.25 L 7.33 L Bicarbonate Actual 21.7 L 20.9 L Total CO2 23 22 Base Excess -6 L -5 L O2 Saturation 92 L 94 L O2 % 45.0 45.0 ABG pCO2 49.8 H 39.9 ABG pO2 74 L 78 Polo Test Positive Positive Respiration Rate 12 16 O2 Delivery Device Adult Vent Adult Vent Vent Mode AC AC Tidal Volume 450.0 450.0 POC PEEP 5 5 Attestation: I personally reviewed and interpreted this ABG as follows: Interpretation: Acute metabolic acidosis with increase in a gradient Radiography Diagnostic Testing: Radiology Impression Chest X-Ray 12/06/23 05:55 IMPRESSION: Persistent left pleural effusion and left basilar opacification Electronically Signed: Ramy Watson MD at 4:45 EDT , Rhythm Strip Rhythm Strip: Sinus Tach Rate: 104 Ectopy: - (No pauses noted.) Physical Exam Const Constitutional Narrative: RASS -3. Good vent synchrony. Some spontaneous head movement today General Appearance: patient mechanically ventilated HEENT normocephalic and head/scalp atraumatic Eyes PERRL, EOMs intact bilaterally and conjunctivae normal Neck supple General: trachea midline Chest inspection of chest normal Resp normal respiratory effort Auscultation: rhonchi throughout (Improved with cough and suctioning); Negative for rales or wheezes Cardio S1 normal heart sound, S2 normal heart sound, no murmurs, no rub and no gallops Rate: tachycardic GI normal to inspection, nondistended, normoactive bowel sounds Extremity General Extremity: edema; Negative for clubbing Skin no rashes or lesions noted Neuro moves all extremities and no focal motor deficits Psych Psych Narrative: Not following commands Mood & Affect: flat affect Charges/Coding Procedures Hospitalists Procedures: 53152 Critical Care 1st Hr
[2023-12-06 07:31] LABS: CPK Total, Creatine Kinase 91 U/L (39-308); Triglycerides 132 mg/dL
[2023-12-06] MEDS: Propofol 10MG/Ml 1,000 MG/100 ML Bottle 6.3 MG CONT INF ×2 (07:32→21:20)
[2023-12-06 08:37] LABS: Pathologist Review Reviewed
[2023-12-06 08:46] LABS: Pathologist Review Reviewed
[2023-12-06 09:32] LABS: Pathologist Review Reviewed
[2023-12-06] MEDS: Senna/Docusate Sodium 1 Tablet 2 TABLET GT ×2 (10:33→21:24)
[2023-12-06] MEDS: amLODIPine 5 MG Tablet GT (10:34)
[2023-12-06] MEDS: CHLORHEXIDINE GLUC 2% CLOTH 1 EACH TOWELETTE TOPICAL (10:35)
[2023-12-06] MEDS: Heparin Injection (Vial) 5,000 UNIT/ML VIAL 5000 UNIT SC ×2 (10:35→21:23)
[2023-12-06] MEDS: Aspirin E.C. 81 MG Tablet PO (10:35)
[2023-12-06] MEDS: Chlorhexidine 15 ML PO ×2 (10:35→21:51)
[2023-12-06] MEDS: MEDROXYPROGESTERONE ACETATE 10 MG TABLET GT ×2 (10:35→21:24)
[2023-12-06] MEDS: Ferrous Sulfate 325 MG Tablet GT (10:35)
[2023-12-06] MEDS: Insulin Glargine-YFGN 100 UNIT/ML Pen 30 UNIT SC ×2 (10:53→21:38)
[2023-12-06] MEDS: Pantoprazole Sodium 40 MG in 0.9% Normal Saline (100mL MB+) 100 ML 330 MG IV (10:57)
--- NOTE | 2023-12-06 10:57 | CASEMGMT ---
Social Work SW participated in ICU rounds this morning, pt remains on the ventilator. SW called pt's brother/guardian Umang Chung, as physician would like to meet w/Umang regarding pt's condition. SW called Umang. SW explained that physician would like to speak w/him in regard to pt, inquired if he would be coming to visit. Umang states that they are not able to come today, possibly later in the week. Umang states he does not have a license, they do not have a car, and no place to stay in town. They are planning to rent a car and come up to see pt at some point this week hopefully, however his significant other cannot drive in the dark or the rain, and it is raining today. Umang states that even if pt were dying, they would still have to drive back home before dark. IMAN said would ask physician to call him to update him on pt, and then hopefully Umang can come later in the week to see pt. Umang in agreement with this. IMAN relayed the above information to Dr. Lawrence, he will call Umang today or tomorrow. EV Portillo
[2023-12-06 11:14] LABS: Bedside Glucose 261 mg/dL (74-106)
--- NOTE | 2023-12-06 11:42 | PN.HOSP_ITS ---
Reason for Visit Reason for Visit: Diagnoses Sepsis, unspecified organism (11/25/23) Methicillin resistant Staphylococcus aureus infection as the cause of diseases classified elsewhere (11/25/23) Essential (primary) hypertension (11/25/23) Unspecified atrial fibrillation (11/25/23) Pneumonia, unspecified organism (11/25/23) Respiratory failure, unspecified, unspecified whether with hypoxia or hypercapnia (11/25/23) Acute kidney failure, unspecified (11/25/23) Bacteremia (11/25/23) Subjective Subjective No acute events overnight. Patient seen at bedside this morning. Remains sedated and intubated, not following commands. Objective Data Objective Data Vital Signs: Vital Signs Temp Pulse Resp BP Pulse Ox O2 Del Method O2 Flow Rate 97.2 F L 91 16 121/62 H 98 Mechanical Ventilator 45 12/06/23 08:41 12/06/23 08:41 12/06/23 08:41 12/06/23 08:41 12/06/23 08:48 12/06/23 11:33 12/06/23 07:00 FiO2 45 12/06/23 08:48 Oxygen Flow Rate (L/min) 45 Oxygen Delivery Method Mechanical Ventilator Weight: 105 kg Body Mass Index (BMI) 33.2 Intake & Output: Intake and Output for Last 24 Hours 12/04/23 12/05/23 12/06/23 23:59 23:59 23:59 Intake Total 3974.86 / 4200.76 3233.58 / 3383.58 1284.87 / 1284.87 Output Total 790 / 915 585 / 625 165 / 165 Balance 3184.86 / 3285.76 2648.58 / 2758.58 1119.87 / 1119.87 Medical Nutrition Assessment Dietitian: Malnutrition Criteria Met Start: 12/01/23 09:36 Freq: Status: Active Protocol: Document 12/06/23 11:02 RMA (Rec: 12/06/23 11:02 RMA [id number]) Nutrition Malnutrition Evidence of Malnutrition Exists Yes Malnutrition (severe): Acute Illness/Injury Evidenced By Suboptimal Energy Intake ( Severe),Weight Loss (Severe) Intake Problem Inadequate Oral Intake Etiology related to decreased ability to consume sufficient energy to meet estimated nutrient needs Signs/Symptoms as evidenced by extended NPO status x 9 days and intubation with need for enteral nutrition. Status Active Problem Clinical Problem Acute Disease or Injury Related Malnutrition Etiology severe, acute malnutrition related to inadequate energy intake d/t swallowing difficulties Signs/Symptoms as evidenced by unintentional 4% wt loss < 5 days, PO intake meeting <50% of estimated energy needs x 6 days Status Active Problem Recommendation Dietitian Recommendations/Changes NPO while intubated; Will continue EN via OGT with Vital AF 1.2 to goal rate of 60mL/ hour w/ 100mL H2O flush every 4 hours to provide 1728 calories, 108 g protein, and 1767mL total fluid/day. Lab / Micro Data 12/06/23 03:05 12/06/23 03:05 Labs: Laboratory Results - last 24 hr 12/02/23 03:45: Diff Path Review Reviewed 12/03/23 03:25: Diff Path Review Reviewed 12/04/23 04:50: Diff Path Review Reviewed 12/05/23 12:55: Random Vancomycin 19.6 H 12/05/23 14:19: POC Glucose 192 H 12/05/23 17:57: POC Glucose 181 H 12/05/23 21:36: POC Glucose 182 H 12/06/23 01:25: POC Glucose 181 H 12/06/23 03:05: WBC 24.0 H, RBC 3.17 L, Hgb 8.3 L, Hct 26.8 L, MCV 84.5 D, MCH 26.2 L, MCHC 31.0 L, RDW Std Deviation 57.2 H, RDW Coeff of Saman 20.5 H, Plt Count 155, Sodium 145, Potassium 4.2, Chloride 114 H, Carbon Dioxide 23.0, Anion Gap 8, BUN 64 H, Creatinine 3.61 H, Estim Creat Clear Calc 24.46, Est GFR (MDRD) Af Amer 22 L, Est GFR (MDRD) Non-Af 18 L, BUN/Creatinine Ratio 17.7, Glucose 240 H, Calcium 9.0, Total Creatine Kinase 91, Triglycerides 132 12/06/23 05:01: POC Glucose 211 H 12/06/23 10:52: POC Glucose 261 H Micro: Microbiology 12/03/23 16:20 Sputum, Induced/Lukens Gram Stain - Final 12/03/23 16:20 Sputum, Induced/Lukens Respiratory Culture - Final Meth. resistant Staph. aureus Yeast, not Evy albicans 11/29/23 09:50 Blood Culture (Wb) - Right Hand Blood Culture - Final No growth in 5 days. 12/03/23 16:55 Stool Enteric Bacteriology - Final 12/03/23 16:55 Stool Clostridioides difficile (PCR) - Final 11/28/23 13:16 Blood Culture (Wb) - Left Hand Blood Culture - Final No growth in 5 days. 11/25/23 10:45 Blood Culture (Wb) - Anticubital Right Blood Culture - Final No growth in 5 days. 11/25/23 10:38 Blood Culture (Wb) - Anticubital Left Blood Culture - Final Meth. resistant Staph. aureus 11/25/23 11:45 Urine, Catheterized Urine Culture - Final Culture exhibits no growth. 11/26/23 11:26 Stool Clostridioides difficile (PCR) - Final 11/25/23 11:40 Mucosa - Nose SARS-CoV-2, Influenza & RSV (PCR) - Final ABG Data ABG results: ABG 12/05/23 12/06/23 23:07 05:40 Specimen Type ART ART Sample Site L Radial R Radial pH 7.25 L 7.33 L Bicarbonate Actual 21.7 L 20.9 L Total CO2 23 22 Base Excess -6 L -5 L O2 Saturation 92 L 94 L O2 % 45.0 45.0 ABG pCO2 49.8 H 39.9 ABG pO2 74 L 78 Polo Test Positive Positive Respiration Rate 12 16 O2 Delivery Device Adult Vent Adult Vent Vent Mode AC AC Tidal Volume 450.0 450.0 POC PEEP 5 5 Radiography Diagnostic Testing: Radiology Impression Chest X-Ray 12/06/23 05:55 IMPRESSION: Persistent left pleural effusion and left basilar opacification Electronically Signed: Ramy Watson MD at 4:45 EDT , Rhythm Strip Rhythm Strip: Sinus Tach Rate: 104 Ectopy: - (No pauses noted.) Physical Exam Const Constitutional Narrative: Intubated and sedated. Not following commands. Obese. HEENT normocephalic, head/scalp atraumatic and nasal mucous membranes and turbinates normal Eyes EOMs intact bilaterally Chest inspection of chest normal Resp normal respiratory effort and no use of accessory muscles Resp Narrative: Intubated and mechanically ventilated. On low vent settings. Good air movement on right, diminished breath sounds on left throughout. No wheezing noted. Cardio regular rate, regular rhythm, no murmurs and peripheral pulses 2+ throughout GI normal to inspection, nondistended, normoactive bowel sounds, soft to palpation, non-tender and non-distended Extremity Extremity Narrative: +2-3 lower extremity edema noted. Skin no rashes or lesions noted Assessment & Plan Assessment/Plan (1) MRSA bacteremia: (2) Sepsis: (3) Pneumonia: (4) Respiratory failure: (5) JULIETTE (acute kidney injury): PLAN: Plan Patient is a 63-year-old male who presented to [facility] ED on 11/25/2023 with worsening shortness of breath. 1. Acute hypoxic and hypercapnic respiratory failure Initially hypoxia presumed secondary to secondary MRSA pneumonia after recent flu pneumonia. Had worsening mental status and hypoxia on 12/02 requiring intubation. She was found to be hypercapnic postintubation. This was suspected secondary to decreased respiratory drive from possible overmedication as notable below. ? Tobacco Feeder Catcher following. Remains intubated and sedated. Chest x-rays on 12/04 and 12/05 show worsening left lung opacities suspected due to both pneumonia and worsening volume overload. Very volume overloaded as noted below. Trialing diu resis today, will monitor patient's urine output closely. 2. Hypotension with concern for shock, sepsis without shock secondary to MRSA bacteremia Initially presented with sepsis and found to have MRSA bacteremia presumed secondary to a MRSA pneumonia that developed post influenza pneumonia. TTE showed no valvular abnormalities. Developed hypotension after intubation and sedation, suspected that hypotension is likely secondary to sedation requirements. ? Tobacco Feeder Catcher and ID following. Remains hemodynamically stable on very low Levophed requirements. Meropenem added on 12/03 given concern for septic shock of unclear origin. Per ID, continue vancomycin and meropenem. Wean sedation as able. Levophed as needed to maintain MAP greater than 65. 3. Acute metabolic encephalopathy Patient noted to have worsening mentation on 11/27 of unclear etiology. Neurology was consulted for questionable seizure activity. MRI brain negative, EEG negative. Lab workup fairly benign. Neurology suspected toxic metabolic encephalopathy that was multifactorial in setting of sepsis, pneumonia, JULIETTE, delirium and polypharmacy from sedative medications of Ativan, Haldol and DPA, as well as a poor mental status at baseline. Patient required intubation on 12/02 as noted above. ? Neurology followed. Currently intubated and sedated. Holding home Haldol and Ativan to minimize use of sedation medications per neurology recommendations. Treating underlying causes. 4. JULIETTE on suspected CKD stage IIIb Creatinine 2.05 on admit, baseline creatinine around 1.8-2.1. Noted to have acutely worsened creatinine to 3.08 on 11/28 which then recovered back to baseline by 12/01. However, again had worsening of creatinine to 3.27 on 12/03 with decreased urine output suspected to be secondary to ATN from sepsis. ? Nephrology following. Creatinine mildly worsened to 3.61 on 12/05. Urine output improved yesterday, has now slowed down. Trialing diuresis with IV Lasix 40 mg today. Continue to monitor daily BMP and urine output. 5. Volume overload ? Patient noted to be +10 L from volume status standpoint on 12/04, secondary to heavy IV fluids administered in setting of sepsis and concern for shock as noted above. Tobacco Feeder Catcher and nephrology following as above. Diuresis limited by hypotension as noted above. Trialing diuresis on 12/05 as noted above. 6. A-fib with RVR, bradycardia with sinus pauses ? Cardiology evaluated on 11/29. Patient was noted to be on high-dose beta- diogo at that time and had some pauses on monitoring 6 seconds, unclear patient was symptomatic with these pauses. Not an urgent pacemaker candidate given bacteremia. Beta-diogo discontinued for now. Has had improvement in heart rate and no recent sinus pauses. Continue cardiac monitoring. 7. Hypernatremia, improving ? Nephrology following as above. Presumed secondary to dehydration. Sodium peaked at 152 on 12/02, improved to 145 on 12/05. Continue 200 mL H2O with tube feeds every 4 hours. Monitor daily sodium. 8. Acute on chronic anemia ? Known history of iron deficiency anemia, was on home iron supplement. Hemoglobin 10.5 on admit, slowly downtrending since then. Most recent hemoglobin 8.3, stable. No active signs of bleeding. Iron studies on 12/04 with ferritin 1638, consistent with anemia of chronic disease. Trend CBC daily. Chronic medical conditions: ? Obesity: BMI 32 on admit. Complicates hospital course, care and prognosis. ? Paranoid schizophrenia/anxiety and depression/sexual aggression: Lives in long term. Continue home Depakote, holding home Haldol and Ativan as noted above. ? Type 2 diabetes mellitus: Home regimen of insulin glargine 35 units at night, lispro 17 units with meals, metformin 1000 mg twice daily, Jardiance 25 mg daily. Blood sugars elevated while inpatient. Continue Lantus 25 units twice daily and sliding-scale insulin every 4 hours as needed with tube feeds for now. ? Hypothyroidism: Continue home Synthroid. ? CAD/hypertension/hyperlipidemia: Continue home aspirin, statin, amlodipine. Holding home Lopressor due to bradycardia as noted above. Holding home losartan and Lasix for JULIETTE. ? Tobacco abuse: Nicotine replacement therapy available as needed. DVT prophylaxis: Heparin subcu CODE STATUS: Full code, verified Expected disposition: TBD Total clinical time spent by myself addressing the patient's medical issues, reviewing all the data, and collaborating with patient's care team: 35 minutes. Charges/Coding Visit Charges Inpatient E&M: 91081 Subs Hosp L2
[2023-12-06] MEDS: Vital AF 1.2 Cal Liquid 1,000 ML 25 ML GT (14:02)
[2023-12-06] MEDS: fentaNYL drip 100 ML 12.5 MCG CONT INF (15:29)
--- NOTE | 2023-12-06 17:58 | PN.RENAL_ITS ---
Subjective Subjective Remains intubated. He is off pressors. Urine output is a little bit less than yesterday. Creatinine higher. WBC count is significantly higher than yesterday. No fever spikes. Remains edematous. Objective Data Objective Data Vital Signs: Vital Signs Temp Pulse Resp BP Pulse Ox O2 Del Method O2 Flow Rate 96.5 F L 67 16 90/51 L 99 Mechanical Ventilator 30 12/06/23 12:00 12/06/23 17:25 12/06/23 17:25 12/06/23 17:00 12/06/23 17:25 12/06/23 17:00 12/06/23 16:00 FiO2 12/06/23 17:25 Oxygen Flow Rate (L/min) 30 Oxygen Delivery Method Mechanical Ventilator Weight: 105 kg Body Mass Index (BMI) 33.2 Intake & Output: Intake and Output for Last 24 Hours 12/04/23 12/05/23 12/06/23 23:59 23:59 23:59 Intake Total 3974.86 / 4200.76 3233.58 / 3383.58 1733.02 / 1733.02 Output Total 790 / 915 585 / 625 465 / 465 Balance 3184.86 / 3285.76 2648.58 / 2758.58 1268.02 / 1268.02 Medical Nutrition Assessment Dietitian: Malnutrition Criteria Met Start: 12/01/23 09:36 Freq: Status: Active Protocol: Document 12/06/23 11:02 RMA (Rec: 12/06/23 11:02 RMA [id number]) Nutrition Malnutrition Evidence of Malnutrition Exists Yes Malnutrition (severe): Acute Illness/Injury Evidenced By Suboptimal Energy Intake ( Severe),Weight Loss (Severe) Intake Problem Inadequate Oral Intake Etiology related to decreased ability to consume sufficient energy to meet estimated nutrient needs Signs/Symptoms as evidenced by extended NPO status x 9 days and intubation with need for enteral nutrition. Status Active Problem Clinical Problem Acute Disease or Injury Related Malnutrition Etiology severe, acute malnutrition related to inadequate energy intake d/t swallowing difficulties Signs/Symptoms as evidenced by unintentional 4% wt loss < 5 days, PO intake meeting <50% of estimated energy needs x 6 days Status Active Problem Recommendation Dietitian Recommendations/Changes NPO while intubated; Will continue EN via OGT with Vital AF 1.2 to goal rate of 60mL/ hour w/ 100mL H2O flush every 4 hours to provide 1728 calories, 108 g protein, and 1767mL total fluid/day. Lab / Micro Data 12/06/23 03:05 12/06/23 03:05 Labs: Laboratory Results - last 24 hr 12/02/23 03:45: Diff Path Review Reviewed 12/03/23 03:25: Diff Path Review Reviewed 12/04/23 04:50: Diff Path Review Reviewed 12/05/23 17:57: POC Glucose 181 H 12/05/23 21:36: POC Glucose 182 H 12/06/23 01:25: POC Glucose 181 H 12/06/23 03:05: WBC 24.0 H, RBC 3.17 L, Hgb 8.3 L, Hct 26.8 L, MCV 84.5 D, MCH 26.2 L, MCHC 31.0 L, RDW Std Deviation 57.2 H, RDW Coeff of Saman 20.5 H, Plt Count 155, Sodium 145, Potassium 4.2, Chloride 114 H, Carbon Dioxide 23.0, Anion Gap 8, BUN 64 H, Creatinine 3.61 H, Estim Creat Clear Calc 24.46, Est GFR (MDRD) Af Amer 22 L, Est GFR (MDRD) Non-Af 18 L, BUN/Creatinine Ratio 17.7, Glucose 240 H, Calcium 9.0, Total Creatine Kinase 91, Triglycerides 132 12/06/23 05:01: POC Glucose 211 H 12/06/23 10:52: POC Glucose 261 H Micro: Microbiology 12/03/23 16:20 Sputum, Induced/Lukens Gram Stain - Final 12/03/23 16:20 Sputum, Induced/Lukens Respiratory Culture - Final Meth. resistant Staph. aureus Yeast, not Evy albicans 11/29/23 09:50 Blood Culture (Wb) - Right Hand Blood Culture - Final No growth in 5 days. 12/03/23 16:55 Stool Enteric Bacteriology - Final 12/03/23 16:55 Stool Clostridioides difficile (PCR) - Final 11/28/23 13:16 Blood Culture (Wb) - Left Hand Blood Culture - Final No growth in 5 days. 11/25/23 10:45 Blood Culture (Wb) - Anticubital Right Blood Culture - Final No growth in 5 days. 11/25/23 10:38 Blood Culture (Wb) - Anticubital Left Blood Culture - Final Meth. resistant Staph. aureus 11/25/23 11:45 Urine, Catheterized Urine Culture - Final Culture exhibits no growth. 11/26/23 11:26 Stool Clostridioides difficile (PCR) - Final 11/25/23 11:40 Mucosa - Nose SARS-CoV-2, Influenza & RSV (PCR) - Final ABG Data ABG results: ABG 12/05/23 12/06/23 23:07 05:40 Specimen Type ART ART Sample Site L Radial R Radial pH 7.25 L 7.33 L Bicarbonate Actual 21.7 L 20.9 L Total CO2 23 22 Base Excess -6 L -5 L O2 Saturation 92 L 94 L O2 % 45.0 45.0 ABG pCO2 49.8 H 39.9 ABG pO2 74 L 78 Polo Test Positive Positive Respiration Rate 12 16 O2 Delivery Device Adult Vent Adult Vent Vent Mode AC AC Tidal Volume 450.0 450.0 POC PEEP 5 5 Radiography Diagnostic Testing: Radiology Impression Chest X-Ray 12/06/23 05:55 IMPRESSION: Persistent left pleural effusion and left basilar opacification Electronically Signed: Ramy Watson MD at 4:45 EDT , Rhythm Strip Rhythm Strip: Sinus Tach Rate: 104 Ectopy: - (No pauses noted.) Physical Exam Narrative intubated no obvious distress no pallor no icterus no JVD s1s2 no murmurs lungs clear abdomen soft no organomegaly no edema no cyanosis ratliff + Assessment & Plan Assessment/Plan (1) JULIETTE (acute kidney injury): PLAN: Possible CKD stage IIIb Last creatinine prior to this admission was 1.5 from late last year. Most of the hospitalization his creatinine was around 1.8-1.9. Possible CKD stage IIIb. Urine analysis shows protein, cells. When Ratliff catheter is out, we will repeat urine analysis Unlikely obstructive JULIETTE is likely ATN due to sepsis. Creatinine slightly higher. Overall significantly volume overloaded. Chest x- ray reviewed, significant left-sided effusion. Oxygenation is okay. Agree with IV Lasix challenge. Discussed with ICU attending
[2023-12-06 18:14] LABS: Bedside Glucose 200 mg/dL (74-106)
[2023-12-06 18:30] LABS: Bedside Glucose 221 mg/dL (74-106)
[2023-12-06] MEDS: Valproic Acid 250 MG/5 ML UDC 500 MG GT (21:23)
[2023-12-06] MEDS: Valproic Acid 250 MG/5 ML UDC GT (21:23)
[2023-12-06] MEDS: traZODone 100 MG Tablet GT (21:23)
[2023-12-06] MEDS: Atorvastatin Calcium 80 MG Tablet GT (21:24)
[2023-12-06 21:59] LABS: Bedside Glucose 159 mg/dL (74-106)
[2023-12-07] VITALS (36 sets, daily range): BP systolic 80–152; BP diastolic 51–67; PULSE 63–131; RESP 14–26; TEMP 35.7–36.8; O2SAT 88–100; BMI 33.9
[2023-12-07] MEDS: fentaNYL drip 100 ML 10 MCG CONT INF ×3 (00:22→21:41)
[2023-12-07] MEDS: Insulin Lispro 100 UNIT/ML INSULN.PEN SC ×4 (01:46→20:17)
[2023-12-07 02:10] LABS: Bedside Glucose 155 mg/dL (74-106)
[2023-12-07 03:42] LABS: Hematocrit 23.5 % (40-54); Hemoglobin 7.4 g/dL (13.0-16.5); Mean Corp Hgb Conc 31.5 g/dL (32-36); Mean Corpuscular Hgb 26.3 pg (27.0-32.0); Mean Corpuscular Volume 83.6 fL (80-94); POSITIVE MORPHOLOGY YES; Platelet Count 165 K/mm3 (150-450); RBC Distribution Width CV 20.2 % (11.6-14.6); Red Blood Count 2.81 M/mm3 (4.6-6.2); White Blood Count 19.6 K/mm3 (4.4-11.0)
[2023-12-07 03:59] LABS: Scan Indicated on CBC? Y/N YES- FLAGS NOTED
[2023-12-07 04:16] LABS: Anion Gap 6 (5-15); BUN 67 mg/dL (7-18); BUN/Creat Ratio 20.4 RATIO (10-20); Calcium,Total 8.8 mg/dL (8.5-10.1); Chloride 116 mmol/L (98-107); Creatinine, Serum 3.29 mg/dL (0.70-1.30); EST Glomerular Filtration Rate 20 mL/min (>60); Est Glom Filt Rate - Afr Amer 24 mL/min (>60); Estimated Creatinine Clearance 27.46 ml/min; Glucose 176 mg/dL (74-106); Sodium Level 145 mmol/L (136-145)
[2023-12-07] MEDS: Levothyroxine 50 MCG Tablet GT (05:24)
[2023-12-07] MEDS: CHLORHEXIDINE GLUC 2% CLOTH 1 EACH TOWELETTE TOPICAL (05:24)
[2023-12-07 05:42] LABS: Bedside Glucose 149 mg/dL (74-106)
--- NOTE | 2023-12-07 05:55 | RAD_ITS ---
INDICATION: resp failure vent EXAMINATION/TECHNIQUE: X-RAY - XR Chest 1 View AP portable. 4:22 AM COMPARISON: 12/06/2023 FINDINGS: LINES/DEVICES: Tip of the endotracheal tube is 7 cm above the jaci. NG tube tip below the diaphragm.. LUNGS: Opacity on the left with left pleural effusion and basilar opacity increased compared to prior. Opacity at the right lung base is new with small right pleural effusion. No pneumothorax. MEDIASTINUM: Unremarkable. CARDIAC SILHOUETTE: Not enlarged. BONES AND SOFT TISSUES: No acute abnormalities. RAD/Chest 1 View (Portable) IMPRESSION: New right basilar airspace disease and small right pleural effusion. Left pleural effusion and basilar air space disease increased. Electronically Signed: Rema Jaffe MD at 5:16 EDT ,
--- NOTE | 2023-12-07 07:04 | PN.CC_ITS ---
Assessment & Plan Assessment/Plan (1) MRSA bacteremia: (2) Sepsis: PLAN: Plan RECOMMENDATIONS: 1. Antimicrobials per ID recommendations. 2. Aggressive bowel regimen 3. Continue appropriate DVT prophylaxis. 4. Attempt diuresis 5. Continue propofol and fentanyl 6. Continue tube feeds IMPRESSIONS: 1. Sepsis secondary to MRSA bacteremia It is suspected that the patient developed post influenza pneumonia resulting in secondary bacteremia. The patient remains on antimicrobials per ID recommendations. No vegetations were seen on TTE. The patient remains hemodynamically stable. Patient is not on pressors at this time. White blood cells up significantly today compared to yesterday, but similar to the day gita or. No fevers been noted. 2. Acute combined respiratory failure Patient reportedly was found to be more lethargic over the weekend and was intubated secondary to decreased mental status. Patient was found to be retaining CO2. Patient was receiving significant Ativan at that time, but was placed on propofol initially. Patient appears to be appropriately sedated at this time. Continue current vent settings. Pleural effusion noted on chest x- ray with hypoxia on spontaneous breathing trial. Will attempt diuresis. Clinical suspicion patient is off of the Starling curve as he is positive almost 20 L over the course of his hospitalization. 3. History of atrial fibrillation/sinus pauses/coronary artery disease Cardiology is currently following to assist with medical management. Will defer management on rate/rhythm control strategy. Rate has been well- controlled.Patient's arrhythmia has improved with treatment of MRSA. May require a SERGIO in the future to evaluate for abscess formation. 4. History of paranoid schizophrenia/chronic kidney disease/hypertension/diabetes mellitus/hypothyroidism Complicates care, management, recovery and prognosis. Continue supportive measures as noted above along with basal and sliding scale insulin coverage. Patient almost a full tube feeds TIME: 36 minutes of critical care time spent addressing patient's respiratory failure, hypotension, review of all data and collaboration with care team Subjective Subjective Patient did okay overnight. Patient did have a spontaneous breathing trial this morning, but became tachypneic and hypoxic after 35 minutes. Patient was more interactive this morning. Patient has had intermittent increased residuals. Patient did have a small bowel movement overnight. Patient did have increased heart rates and hypoxia following trial. Objective Data Objective Data Vital Signs: Vital Signs Temp Pulse Resp BP Pulse Ox O2 Del Method O2 Flow Rate 36.7 C 95 16 80/51 L 91 Mechanical Ventilator 40 12/07/23 07:00 12/07/23 07:00 12/07/23 07:00 12/07/23 07:00 12/07/23 07:00 12/07/23 07:00 12/07/23 06:00 FiO2 40 12/07/23 07:00 Oxygen Flow Rate (L/min) 40 Oxygen Delivery Method Mechanical Ventilator Weight: 107.3 kg Body Mass Index (BMI) 33.9 Intake & Output: Intake and Output for Last 24 Hours 12/05/23 12/06/23 12/07/23 23:59 23:59 23:59 Intake Total 3233.58 / 3383.58 2176.18 / 2192.48 651.12 / 651.12 Output Total 585 / 625 690 / 690 200 / 200 Balance 2648.58 / 2758.58 1486.18 / 1502.48 451.12 / 451.12 Medical Nutrition Assessment Dietitian: Malnutrition Criteria Met Start: 12/01/23 09:36 Freq: Status: Active Protocol: Document 12/06/23 11:02 RMA (Rec: 12/06/23 11:02 RMA [id number]) Nutrition Malnutrition Evidence of Malnutrition Exists Yes Malnutrition (severe): Acute Illness/Injury Evidenced By Suboptimal Energy Intake ( Severe),Weight Loss (Severe) Intake Problem Inadequate Oral Intake Etiology related to decreased ability to consume sufficient energy to meet estimated nutrient needs Signs/Symptoms as evidenced by extended NPO status x 9 days and intubation with need for enteral nutrition. Status Active Problem Clinical Problem Acute Disease or Injury Related Malnutrition Etiology severe, acute malnutrition related to inadequate energy intake d/t swallowing difficulties Signs/Symptoms as evidenced by unintentional 4% wt loss < 5 days, PO intake meeting <50% of estimated energy needs x 6 days Status Active Problem Recommendation Dietitian Recommendations/Changes NPO while intubated; Will continue EN via OGT with Vital AF 1.2 to goal rate of 60mL/ hour w/ 100mL H2O flush every 4 hours to provide 1728 calories, 108 g protein, and 1767mL total fluid/day. Lab / Micro Data Attestation: I reviewed the patient's lab results. 12/07/23 03:28 12/07/23 03:28 Labs: Laboratory Results - last 24 hr 12/02/23 03:45: Diff Path Review Reviewed 12/03/23 03:25: Diff Path Review Reviewed 12/04/23 04:50: Diff Path Review Reviewed 12/06/23 03:05: Total Creatine Kinase 91, Triglycerides 132 12/06/23 10:52: POC Glucose 261 H 12/06/23 15:20: POC Glucose 221 H 12/06/23 17:52: POC Glucose 200 H 12/06/23 21:34: POC Glucose 159 H 12/07/23 01:45: POC Glucose 155 H 12/07/23 03:28: WBC 19.6 H, RBC 2.81 L, Hgb 7.4 L, Hct 23.5 L, MCV 83.6, MCH 26.3 L, MCHC 31.5 L, RDW Std Deviation 54.0 H, RDW Coeff of Saman 20.2 H, Plt Count 165, Sodium 145, Potassium 4.0, Chloride 116 H, Carbon Dioxide 23.0, Anion Gap 6, BUN 67 H, Creatinine 3.29 H, Estim Creat Clear Calc 27.46, Est GFR (MDRD) Af Amer 24 L, Est GFR (MDRD) Non-Af 20 L, BUN/Creatinine Ratio 20.4 H, Glucose 176 H, Calcium 8.8 12/07/23 05:21: POC Glucose 149 H Micro: Microbiology 12/03/23 16:20 Sputum, Induced/Lukens Gram Stain - Final 12/03/23 16:20 Sputum, Induced/Lukens Respiratory Culture - Final Meth. resistant Staph. aureus Yeast, not Evy albicans 11/29/23 09:50 Blood Culture (Wb) - Right Hand Blood Culture - Final No growth in 5 days. 12/03/23 16:55 Stool Enteric Bacteriology - Final 12/03/23 16:55 Stool Clostridioides difficile (PCR) - Final 11/28/23 13:16 Blood Culture (Wb) - Left Hand Blood Culture - Final No growth in 5 days. 11/25/23 10:45 Blood Culture (Wb) - Anticubital Right Blood Culture - Final No growth in 5 days. 11/25/23 10:38 Blood Culture (Wb) - Anticubital Left Blood Culture - Final Meth. resistant Staph. aureus 11/25/23 11:45 Urine, Catheterized Urine Culture - Final Culture exhibits no growth. 11/26/23 11:26 Stool Clostridioides difficile (PCR) - Final 11/25/23 11:40 Mucosa - Nose SARS-CoV-2, Influenza & RSV (PCR) - Final Radiography Diagnostic Testing: Radiology Impression Chest X-Ray 12/07/23 05:55 IMPRESSION: New right basilar airspace disease and small right pleural effusion. Left pleural effusion and basilar air space disease increased. Electronically Signed: Rema Jaffe MD at 5:16 EDT Reading Location ID and State: [facility] / [place] Tel , Service support , Rhythm Strip Rhythm Strip: Sinus Tach Rate: 120 Ectopy: - (No pauses noted.) Physical Exam Const Constitutional Narrative: RASS -1. Good vent synchrony. Some spontaneous limb movement today. Anasarca. General Appearance: patient mechanically ventilated HEENT normocephalic, head/scalp atraumatic and moist oral mucous membranes Eyes PERRL, EOMs intact bilaterally and conjunctivae normal Neck supple General: trachea midline Chest inspection of chest normal Resp normal respiratory effort Auscultation: rhonchi throughout (Improved with cough and suctioning); Negative for rales or wheezes Percussion: dullness Lower: left Cardio S1 normal heart sound, S2 normal heart sound, no murmurs, no rub and no gallops Rate: tachycardic GI normal to inspection, nondistended, normoactive bowel sounds Extremity General Extremity: edema; Negative for clubbing Skin no rashes or lesions noted Neuro moves all extremities and no focal motor deficits Psych Psych Narrative: Not following commands Mood & Affect: flat affect Charges/Coding Procedures Hospitalists Procedures: 19626 Critical Care 1st Hr
[2023-12-07 07:19] LABS: Vancomycin, Trough Level 23.2 ug/mL (5.0-15.0)
--- NOTE | 2023-12-07 07:41 | PCM.RX.CS ---
Consult Antibiotic Management Pharmacy has been consulted to manage selected antibiotic: Vancomycin Type of Intervention Type of Consult: Follow-up Suspected Infection Suspected Infection: Pneumonia Prior Doses of Antibiotics Prior Doses of Antibiotics Received/Current Regimen: Current order 1gm iv q36h. Previously on 1gm iv q24h. Labs Labs: Sodium 145 mmol/L (136-145) 12/07/23 03:28 Potassium 4.0 mmol/L (3.5-5.1) 12/07/23 03:28 Chloride 116 mmol/L (98-107) H 12/07/23 03:28 Carbon Dioxide 23.0 mmol/L (21.0-32.0) 12/07/23 03:28 Anion Gap 6 (5-15) 12/07/23 03:28 BUN 67 mg/dL (7-18) H 12/07/23 03:28 Creatinine 3.29 mg/dL (0.70-1.30) H 12/07/23 03:28 Est GFR (MDRD) Af Amer 24 mL/min (>60) L 12/07/23 03:28 Est GFR (MDRD) Non-Af 20 mL/min (>60) L 12/07/23 03:28 BUN/Creatinine Ratio 20.4 RATIO (10-20) H 12/07/23 03:28 Glucose 176 mg/dL (74-106) H 12/07/23 03:28 Vancomycin Trough 23.2 ug/mL (5.0-15.0) H 12/07/23 06:38 Random Vancomycin 19.6 ug/mL (0.0-15.0) H 12/05/23 12:55 Microbiology Microbiology: Microbiology 12/03/23 16:20 Sputum, Induced/Lukens Gram Stain - Final 12/03/23 16:20 Sputum, Induced/Lukens Respiratory Culture - Final Meth. resistant Staph. aureus Yeast, not Evy albicans 11/29/23 09:50 Blood Culture (Wb) - Right Hand Blood Culture - Final No growth in 5 days. 12/03/23 16:55 Stool Enteric Bacteriology - Final 12/03/23 16:55 Stool Clostridioides difficile (PCR) - Final 11/28/23 13:16 Blood Culture (Wb) - Left Hand Blood Culture - Final No growth in 5 days. 11/25/23 10:45 Blood Culture (Wb) - Anticubital Right Blood Culture - Final No growth in 5 days. 11/25/23 10:38 Blood Culture (Wb) - Anticubital Left Blood Culture - Final Meth. resistant Staph. aureus 11/25/23 11:45 Urine, Catheterized Urine Culture - Final Culture exhibits no growth. 11/26/23 11:26 Stool Clostridioides difficile (PCR) - Final 11/25/23 11:40 Mucosa - Nose SARS-CoV-2, Influenza & RSV (PCR) - Final Dosing Weight Weight used for dosin.3 kg Estimated Creatinine Clearance Estimated Creatinine Clearance: 27ml/min Goal Trough Goal Trough: 15-20 mcg/mL Pharmacy Plan for Drug Dosing Pharmacy Plan for Drug Dosing: Random level today elevated at 23.2. Probably due to worsening of renal function. Cr changed from 3.17 to 3.61. Further dosing held. New random level for tomorrow AM. Pharmacy Service will continue to monitor and adjust dosing as required. Follow-Up Labs Follow-Up Labs: Trough: Vancomycin (random level 3.28.24 @0600)
[2023-12-07] MEDS: Aspirin 81 MG TAB.CHEW GT (08:09)
[2023-12-07] MEDS: Chlorhexidine 15 ML PO ×2 (08:09→20:10)
[2023-12-07] MEDS: Furosemide 40 MG/4 ML Vial IV ×2 (08:12→15:19)
[2023-12-07] MEDS: Polyethylene Glycol 3350 17 GM PACKET GT ×2 (09:53→20:11)
[2023-12-07] MEDS: Heparin Injection (Vial) 5,000 UNIT/ML VIAL 5000 UNIT SC ×2 (09:53→20:10)
[2023-12-07] MEDS: Valproic Acid 250 MG/5 ML UDC 500 MG GT ×2 (09:53→20:10)
[2023-12-07] MEDS: Senna/Docusate Sodium 1 Tablet 2 TABLET GT ×2 (09:53→20:11)
[2023-12-07] MEDS: MEDROXYPROGESTERONE ACETATE 10 MG TABLET GT ×2 (09:54→20:11)
[2023-12-07] MEDS: Insulin Glargine-YFGN 100 UNIT/ML Pen 30 UNIT SC ×2 (09:56→20:17)
[2023-12-07] MEDS: Pantoprazole Sodium 40 MG in 0.9% Normal Saline (100mL MB+) 100 ML 330 MG IV (10:06)
[2023-12-07] MEDS: Propofol 10MG/Ml 1,000 MG/100 ML Bottle 9.7 MG CONT INF (10:10)
[2023-12-07] MEDS: Vital AF 1.2 Cal Liquid 1,000 ML 40 ML GT (10:20)
[2023-12-07 10:33] LABS: Bedside Glucose 160 mg/dL (74-106)
--- NOTE | 2023-12-07 11:23 | PCM.PN.HOSP ---
Reason for Visit Reason for Visit: Diagnoses Sepsis, unspecified organism (11/25/23) Methicillin resistant Staphylococcus aureus infection as the cause of diseases classified elsewhere (11/25/23) Essential (primary) hypertension (11/25/23) Unspecified atrial fibrillation (11/25/23) Pneumonia, unspecified organism (11/25/23) Respiratory failure, unspecified, unspecified whether with hypoxia or hypercapnia (11/25/23) Acute kidney failure, unspecified (11/25/23) Bacteremia (11/25/23) Subjective Subjective Patient was noted to have mildly low blood pressures overnight and earlier this morning with receiving IV Lasix but has not had to be started back on pressor medications. Patient seen at bedside this morning. Remains sedated and intubated. He did awaken to my voice but was not purposely following any commands. Objective Data Objective Data Vital Signs: Vital Signs Temp Pulse Resp BP Pulse Ox O2 Del Method O2 Flow Rate 98.2 F 84 16 93/56 L 97 Mechanical Ventilator 40 12/07/23 10:00 12/07/23 10:00 12/07/23 10:00 12/07/23 10:00 12/07/23 10:00 12/07/23 10:00 12/07/23 06:00 FiO2 30 12/07/23 10:00 Oxygen Flow Rate (L/min) 40 Oxygen Delivery Method Mechanical Ventilator Weight: 107.3 kg Body Mass Index (BMI) 33.9 Intake & Output: Intake and Output for Last 24 Hours 12/05/23 12/06/23 12/07/23 23:59 23:59 23:59 Intake Total 3233.58 / 3383.58 2176.18 / 2192.48 1041.03 / 1041.03 Output Total 585 / 625 690 / 690 200 / 200 Balance 2648.58 / 2758.58 1486.18 / 1502.48 841.03 / 841.03 Medical Nutrition Assessment Dietitian: Malnutrition Criteria Met Start: 12/01/23 09:36 Freq: Status: Active Protocol: Document 12/06/23 11:02 RMA (Rec: 12/06/23 11:02 RMA [id number]) Nutrition Malnutrition Evidence of Malnutrition Exists Yes Malnutrition (severe): Acute Illness/Injury Evidenced By Suboptimal Energy Intake ( Severe),Weight Loss (Severe) Intake Problem Inadequate Oral Intake Etiology related to decreased ability to consume sufficient energy to meet estimated nutrient needs Signs/Symptoms as evidenced by extended NPO status x 9 days and intubation with need for enteral nutrition. Status Active Problem Clinical Problem Acute Disease or Injury Related Malnutrition Etiology severe, acute malnutrition related to inadequate energy intake d/t swallowing difficulties Signs/Symptoms as evidenced by unintentional 4% wt loss < 5 days, PO intake meeting <50% of estimated energy needs x 6 days Status Active Problem Recommendation Dietitian Recommendations/Changes NPO while intubated; Will continue EN via OGT with Vital AF 1.2 to goal rate of 60mL/ hour w/ 100mL H2O flush every 4 hours to provide 1728 calories, 108 g protein, and 1767mL total fluid/day. Lab / Micro Data 12/07/23 03:28 12/07/23 03:28 Labs: Laboratory Results - last 24 hr 12/06/23 15:20: POC Glucose 221 H 12/06/23 17:52: POC Glucose 200 H 12/06/23 21:34: POC Glucose 159 H 12/07/23 01:45: POC Glucose 155 H 12/07/23 03:28: WBC 19.6 H, RBC 2.81 L, Hgb 7.4 L, Hct 23.5 L, MCV 83.6, MCH 26.3 L, MCHC 31.5 L, RDW Std Deviation 54.0 H, RDW Coeff of Saman 20.2 H, Plt Count 165, Sodium 145, Potassium 4.0, Chloride 116 H, Carbon Dioxide 23.0, Anion Gap 6, BUN 67 H, Creatinine 3.29 H, Estim Creat Clear Calc 27.46, Est GFR (MDRD) Af Amer 24 L, Est GFR (MDRD) Non-Af 20 L, BUN/Creatinine Ratio 20.4 H, Glucose 176 H, Calcium 8.8 12/07/23 05:21: POC Glucose 149 H 12/07/23 06:38: Vancomycin Trough 23.2 H 12/07/23 09:55: POC Glucose 160 H Micro: Microbiology 12/03/23 16:20 Sputum, Induced/Lukens Gram Stain - Final 12/03/23 16:20 Sputum, Induced/Lukens Respiratory Culture - Final Meth. resistant Staph. aureus Yeast, not Evy albicans 11/29/23 09:50 Blood Culture (Wb) - Right Hand Blood Culture - Final No growth in 5 days. 12/03/23 16:55 Stool Enteric Bacteriology - Final 12/03/23 16:55 Stool Clostridioides difficile (PCR) - Final 11/28/23 13:16 Blood Culture (Wb) - Left Hand Blood Culture - Final No growth in 5 days. 11/25/23 10:45 Blood Culture (Wb) - Anticubital Right Blood Culture - Final No growth in 5 days. 11/25/23 10:38 Blood Culture (Wb) - Anticubital Left Blood Culture - Final Meth. resistant Staph. aureus 11/25/23 11:45 Urine, Catheterized Urine Culture - Final Culture exhibits no growth. 11/26/23 11:26 Stool Clostridioides difficile (PCR) - Final 11/25/23 11:40 Mucosa - Nose SARS-CoV-2, Influenza & RSV (PCR) - Final Radiography Diagnostic Testing: Radiology Impression Chest X-Ray 12/07/23 05:55 IMPRESSION: New right basilar airspace disease and small right pleural effusion. Left pleural effusion and basilar air space disease increased. Electronically Signed: Rema Jaffe MD at 5:16 EDT , Rhythm Strip Rhythm Strip: Sinus Tach Rate: 120 Ectopy: - (No pauses noted.) Physical Exam Const Constitutional Narrative: Intubated and sedated. Awakening to voice but not following commands. Obese. HEENT normocephalic, head/scalp atraumatic and nasal mucous membranes and turbinates normal Eyes EOMs intact bilaterally Chest inspection of chest normal Resp normal respiratory effort and no use of accessory muscles Resp Narrative: Intubated and mechanically ventilated. On low vent settings. Good air movement on right, diminished breath sounds on left throughout. No wheezing noted. Cardio regular rate, regular rhythm, no murmurs and peripheral pulses 2+ throughout GI normal to inspection, nondistended, normoactive bowel sounds, soft to palpation, non-tender and non-distended Extremity Extremity Narrative: +1-2 lower extremity edema noted. Skin no rashes or lesions noted Assessment & Plan Assessment/Plan (1) MRSA bacteremia: (2) Sepsis: (3) Pneumonia: (4) Respiratory failure: (5) JULIETTE (acute kidney injury): PLAN: Plan Patient is a 63-year-old male who presented to [facility] ED on 11/25/2023 with worsening shortness of breath. 1. Acute hypoxic and hypercapnic respiratory failure Initially hypoxia presumed secondary to secondary MRSA pneumonia after recent flu pneumonia. Had worsening mental status and hypoxia on 12/02 requiring intubation. She was found to be hypercapnic postintubation. This was suspected secondary to decreased respiratory drive from possible overmedication as notable below. ? Quality Review Trainer following. Remains intubated and sedated. Chest x-ray 12/06 continues to show left lung opacities with volume overload. Started on IV Lasix 40 mg every 8 hours on 12/05, continuing for now per screw machine adjuster automatic recs. Oxygen requirements mildly increased to 40 to 45% on the ventilator on 12/06, continue to wean as able. 2. Hypotension with concern for shock, improved; sepsis without shock secondary to MRSA bacteremia Initially presented with sepsis and found to have MRSA bacteremia presumed secondary to a MRSA pneumonia that developed post influenza pneumonia. TTE showed no valvular abnormalities. Developed hypotension after intubation and sedation, suspected that hypotension is likely secondary to sedation requirements. ? Quality Review Trainer and ID following. Hemodynamically stable, has been off Levophed since morning of 12/05. Continue vancomycin and meropenem per ID recs. 3. Acute metabolic encephalopathy Patient noted to have worsening mentation on 11/27 of unclear etiology. Neurology was consulted for questionable seizure activity. MRI brain negative, EEG negative. Lab workup fairly benign. Neurology suspected toxic metabolic encephalopathy that was multifactorial in setting of sepsis, pneumonia, JULIETTE, delirium and polypharmacy from sedative medications of Ativan, Haldol and DPA, as well as a poor mental status at baseline. Patient required intubation on 12/02 as noted above. ? Neurology followed. Currently intubated and sedated. Holding home Haldol and Ativan to minimize use of sedation medications per neurology recommendations. Patient awakening to voice but not purposely following commands. Weaning sedation as able. 4. JULIETTE on suspected CKD stage IIIb Creatinine 2.05 on admit, baseline creatinine around 1.8-2.1. Noted to have acutely worsened creatinine to 3.08 on 11/28 which then recovered back to baseline by 12/01. However, again had worsening of creatinine to 3.27 on 12/03 with decreased urine output suspected to be secondary to ATN from sepsis. ? Nephrology following. Creatinine 3.29 on 12/06. Continues to have good urine output. Per nephro, appears that patient's kidney function may be starting to recover. Continue IV Lasix 40 mg every 8 hours as above for now. Monitor daily BMP. 5. Volume overload ? Patient noted to be +10 L from volume status standpoint on 12/04, secondary to heavy IV fluids administered in setting of sepsis and concern for shock as noted above. Quality Review Trainer and nephrology following as above. Diuresis limited by hypotension as noted above. Diuresing as noted above. 6. A-fib with RVR, bradycardia with sinus pauses ? Cardiology evaluated on 11/29. Patient was noted to be on high-dose beta-diogo at that time and had some pauses on monitoring 6 seconds, unclear patient was symptomatic with these pauses. Not an urgent pacemaker candidate given bacteremia. Beta-diogo discontinued for now. Has had improvement in heart rate and no recent sinus pauses. Continue cardiac monitoring. 7. Hypernatremia, improving ? Nephrology following as above. Presumed secondary to dehydration. Sodium peaked at 152 on 12/02, now stable at 145 on 12/06. Continue 100 mL H2O with tube feeds every 4 hours. Monitor daily sodium. 8. Acute on chronic anemia ? Known history of iron deficiency anemia, was on home iron supplement. Hemoglobin 10.5 on admit, slowly downtrending since then. Most recent hemoglobin 7.4, relatively stable. No active signs of bleeding. Iron studies on 12/04 with ferritin 1638, consistent with anemia of chronic disease. Trend CBC daily. Chronic medical conditions: ? Obesity: BMI 32 on admit. Complicates hospital course, care and prognosis. ? Paranoid schizophrenia/anxiety and depression/sexual aggression: Lives in half-way. Continue home Depakote, holding home Haldol and Ativan as noted above. ? Type 2 diabetes mellitus: Home regimen of insulin glargine 35 units at night, lispro 17 units with meals, metformin 1000 mg twice daily, Jardiance 25 mg daily. Blood sugars elevated while inpatient. Continue Lantus 25 units twice daily and sliding-scale insulin every 4 hours as needed with tube feeds for now. ? Hypothyroidism: Continue home Synthroid. ? CAD/hypertension/hyperlipidemia: Continue home aspirin, statin, amlodipine. Holding home Lopressor due to bradycardia as noted above. Holding home losartan and Lasix for JULIETTE. ? Tobacco abuse: Nicotine replacement therapy available as needed. DVT prophylaxis: Heparin subcu CODE STATUS: Full code, verified Expected disposition: TBD Total clinical time spent by myself addressing the patient's medical issues, reviewing all the data, and collaborating with patient's care team: 35 minutes. Charges/Coding Visit Charges Inpatient E&M: 34235 Subs Hosp L2
--- NOTE | 2023-12-07 13:12 | PCM.PN.REN ---
Subjective Subjective No new events. Remains intubated. Blood pressure is okay without pressors. Chest x-ray today shows worsening left-sided effusion, small right-sided effusion. Has peripheral edema. Urine output is still on the lower side. WBC count is better today, creatinine is slightly better. Objective Data Objective Data Vital Signs: Vital Signs Temp Pulse Resp BP Pulse Ox O2 Del Method O2 Flow Rate 98.1 F 84 16 92/62 96 Mechanical Ventilator 40 12/07/23 11:00 12/07/23 12:05 12/07/23 12:05 12/07/23 11:00 12/07/23 12:05 12/07/23 11:35 12/07/23 06:00 FiO2 25 12/07/23 12:05 Oxygen Flow Rate (L/min) 40 Oxygen Delivery Method Mechanical Ventilator Weight: 107.3 kg Body Mass Index (BMI) 33.9 Intake & Output: Intake and Output for Last 24 Hours 12/05/23 12/06/23 12/07/23 23:59 23:59 23:59 Intake Total 3233.58 / 3383.58 2176.18 / 2192.48 1164.44 / 1164.44 Output Total 585 / 625 690 / 690 200 / 200 Balance 2648.58 / 2758.58 1486.18 / 1502.48 964.44 / 964.44 Medical Nutrition Assessment Dietitian: Malnutrition Criteria Met Start: 12/01/23 09:36 Freq: Status: Active Protocol: Document 12/07/23 11:28 RMA (Rec: 12/07/23 11:28 RMA [id number]) Nutrition Malnutrition Evidence of Malnutrition Exists Yes Malnutrition (severe): Acute Illness/Injury Evidenced By Suboptimal Energy Intake ( Severe),Weight Loss (Severe) Intake Problem Inadequate Oral Intake Etiology related to decreased ability to consume sufficient energy to meet estimated nutrient needs Signs/Symptoms as evidenced by extended NPO status x 9 days and intubation with need for enteral nutrition. Status Active Problem Clinical Problem Acute Disease or Injury Related Malnutrition Etiology severe, acute malnutrition related to inadequate energy intake d/t swallowing difficulties Signs/Symptoms as evidenced by unintentional 4% wt loss < 5 days, PO intake meeting <50% of estimated energy needs x 6 days Status Active Problem Recommendation Dietitian Recommendations/Changes NPO while intubated; Will continue EN via OGT with Vital AF 1.2 to goal rate of 60mL/ hour w/ 100mL H2O flush every 4 hours to provide 1728 calories, 108 g protein, and 1767mL total fluid/day. Will adjust enteral nutrition support and water flushes as needed. Lab / Micro Data 12/07/23 03:28 12/07/23 03:28 Labs: Laboratory Results - last 24 hr 12/06/23 15:20: POC Glucose 221 H 12/06/23 17:52: POC Glucose 200 H 12/06/23 21:34: POC Glucose 159 H 12/07/23 01:45: POC Glucose 155 H 12/07/23 03:28: WBC 19.6 H, RBC 2.81 L, Hgb 7.4 L, Hct 23.5 L, MCV 83.6, MCH 26.3 L, MCHC 31.5 L, RDW Std Deviation 54.0 H, RDW Coeff of Saman 20.2 H, Plt Count 165, Sodium 145, Potassium 4.0, Chloride 116 H, Carbon Dioxide 23.0, Anion Gap 6, BUN 67 H, Creatinine 3.29 H, Estim Creat Clear Calc 27.46, Est GFR (MDRD) Af Amer 24 L, Est GFR (MDRD) Non-Af 20 L, BUN/Creatinine Ratio 20.4 H, Glucose 176 H, Calcium 8.8 12/07/23 05:21: POC Glucose 149 H 12/07/23 06:38: Vancomycin Trough 23.2 H 12/07/23 09:55: POC Glucose 160 H Micro: Microbiology 12/03/23 16:20 Sputum, Induced/Lukens Gram Stain - Final 12/03/23 16:20 Sputum, Induced/Lukens Respiratory Culture - Final Meth. resistant Staph. aureus Yeast, not Evy albicans 11/29/23 09:50 Blood Culture (Wb) - Right Hand Blood Culture - Final No growth in 5 days. 12/03/23 16:55 Stool Enteric Bacteriology - Final 12/03/23 16:55 Stool Clostridioides difficile (PCR) - Final 11/28/23 13:16 Blood Culture (Wb) - Left Hand Blood Culture - Final No growth in 5 days. 11/25/23 10:45 Blood Culture (Wb) - Anticubital Right Blood Culture - Final No growth in 5 days. 11/25/23 10:38 Blood Culture (Wb) - Anticubital Left Blood Culture - Final Meth. resistant Staph. aureus 11/25/23 11:45 Urine, Catheterized Urine Culture - Final Culture exhibits no growth. 11/26/23 11:26 Stool Clostridioides difficile (PCR) - Final 11/25/23 11:40 Mucosa - Nose SARS-CoV-2, Influenza & RSV (PCR) - Final Radiography Diagnostic Testing: Radiology Impression Chest X-Ray 12/07/23 05:55 IMPRESSION: New right basilar airspace disease and small right pleural effusion. Left pleural effusion and basilar air space disease increased. Electronically Signed: Rema Jaffe MD at 5:16 EDT , Rhythm Strip Rhythm Strip: Sinus Tach Rate: 120 Ectopy: - (No pauses noted.) Physical Exam Narrative intubated no obvious distress no pallor no icterus no JVD s1s2 no murmurs lungs clear abdomen soft no organomegaly no edema no cyanosis ratliff + Assessment & Plan Assessment/Plan (1) JULIETTE (acute kidney injury): PLAN: Possible CKD stage IIIb Last creatinine prior to this admission was 1.5 from late last year. Most of the hospitalization his creatinine was around 1.8-1.9. Possible CKD stage IIIb. Urine analysis shows protein, cells. When Ratliff catheter is out, we will repeat urine analysis Unlikely obstructive JULIETTE is likely ATN due to sepsis. Creatinine is better today. Likely recovering. Overall volume overloaded. Agree with IV Lasix 40 mg 3 times daily.
[2023-12-07 15:20] LABS: Bedside Glucose 176 mg/dL (74-106)
--- NOTE | 2023-12-07 16:04 | PCM.PN.ID ---
Physical Exam Narrative On vent, no fever Const no apparent distress Resp normal air movement and clear to auscultation bilaterally Cardio regular rate and regular rhythm GI soft to palpation, non-tender and non-distended Skin no rashes or lesions noted ID ID: Route of nutrition/ use of supplements: [] Nutritional Intake: [] IV Site: [] Browning Catheter: [] Assessment & Plan Assessment/Plan (1) MRSA bacteremia: PLAN: suspected due to post-flu pneumonia. Cont vanc, aurelia. No veg seen on TTE. Bcx cleared 11/27. Wbc improved. Will follow (2) Sepsis:
[2023-12-07] MEDS: Propofol 10MG/Ml 1,000 MG/100 ML Bottle 6.4 MG CONT INF (18:35)
[2023-12-07 18:51] LABS: Bedside Glucose 142 mg/dL (74-106)
[2023-12-07] MEDS: Valproic Acid 250 MG/5 ML UDC GT (20:10)
[2023-12-07] MEDS: Atorvastatin Calcium 80 MG Tablet GT (20:11)
[2023-12-07] MEDS: traZODone 100 MG Tablet GT (20:12)
[2023-12-07] MEDS: Furosemide 100 MG/10 ML Vial 80 MG IV (20:14)
[2023-12-07 20:38] LABS: Bedside Glucose 156 mg/dL (74-106)
--- NOTE | 2023-12-07 21:45 | RAD_ITS ---
INDICATION: Check placement EXAMINATION/TECHNIQUE: X-RAY - XR Chest 1 View COMPARISON: December 07, 2023 chest x-ray at 4:22 AM FINDINGS: LINES/DEVICES: Endotracheal tube 5.5 cm from the jaci. Enteric tube following expected course of the esophagus with the distal tip below the left hemidiaphragm and outside of the [id number]. LUNGS: Mildly improved aeration right lower lobe with persistent airspace disease right lower lobe. Similar appearance of the left lung likely representing large pleural effusion with overlying consolidation versus less likely atelectasis. No pneumothorax. MEDIASTINUM AND CARDIOVASCULAR STRUCTURES: Normal size and contour of the cardiomediastinal silhouette. No evidence of pulmonary vascular congestion. BONES AND SOFT TISSUES: No fracture or focal osseous lesion. RAD/Chest 1 View (Portable) IMPRESSION: 1. No significant interval change left lung pleural effusion with overlying consolidation and/or atelectasis. 2. Slight interval decrease in right lower lobe opacity likely representing consolidation. Electronically Signed: Tano Louise DO at 22:16 EDT ,
[2023-12-08] VITALS (34 sets, daily range): BP systolic 97–165; BP diastolic 52–95; PULSE 64–118; RESP 14–24; TEMP 35.7–37.2; O2SAT 90–100; BMI 33.7
[2023-12-08] MEDS: Propofol 10MG/Ml 1,000 MG/100 ML Bottle 9.7 MG CONT INF (01:46)
[2023-12-08] MEDS: Insulin Lispro 100 UNIT/ML INSULN.PEN SC ×6 (02:36→21:15)
[2023-12-08 02:59] LABS: Bedside Glucose 186 mg/dL (74-106)
[2023-12-08 03:26] LABS: Hematocrit 22.6 % (40-54); Mean Corpuscular Hgb 26.1 pg (27.0-32.0); Mean Corpuscular Volume 84.3 fL (80-94); Mean Platelet Vol. 11.8 fl (6.2-12.0); POSITIVE MORPHOLOGY YES; Platelet Count 197 K/mm3 (150-450); RBC Distribution Width CV 21.5 % (11.6-14.6); RBC Distribution Width SD 55.1 fl (35.1-43.9); Red Blood Count 2.68 M/mm3 (4.6-6.2); White Blood Count 15.3 K/mm3 (4.4-11.0)
[2023-12-08 03:38] LABS: Anion Gap 6 (5-15); BUN 67 mg/dL (7-18); BUN/Creat Ratio 20.9 RATIO (10-20); Calcium,Total 8.7 mg/dL (8.5-10.1); Chloride 115 mmol/L (98-107); EST Glomerular Filtration Rate 21 mL/min (>60); Est Glom Filt Rate - Afr Amer 25 mL/min (>60); Estimated Creatinine Clearance 28.23 ml/min; Glucose 238 mg/dL (74-106); Potassium 4.3 mmol/L (3.5-5.1); Sodium Level 144 mmol/L (136-145)
[2023-12-08 03:39] LABS: Vancomycin, Random Level 20.3 ug/mL (0.0-15.0)
[2023-12-08 03:43] LABS: Scan Indicated on CBC? Y/N YES- FLAGS NOTED
--- NOTE | 2023-12-08 03:50 | PCM.RX.CS ---
Consult Antibiotic Management Pharmacy has been consulted to manage selected antibiotic: Vancomycin Type of Intervention Type of Consult: Follow-up Suspected Infection Suspected Infection: Pneumonia Labs Labs: Sodium 144 mmol/L (136-145) 12/08/23 03:10 Potassium 4.3 mmol/L (3.5-5.1) 12/08/23 03:10 Chloride 115 mmol/L (98-107) H 12/08/23 03:10 Carbon Dioxide 23.0 mmol/L (21.0-32.0) 12/08/23 03:10 Anion Gap 6 (5-15) 12/08/23 03:10 BUN 67 mg/dL (7-18) H 12/08/23 03:10 Creatinine 3.20 mg/dL (0.70-1.30) H 12/08/23 03:10 Est GFR (MDRD) Af Amer 25 mL/min (>60) L 12/08/23 03:10 Est GFR (MDRD) Non-Af 21 mL/min (>60) L 12/08/23 03:10 BUN/Creatinine Ratio 20.9 RATIO (10-20) H 12/08/23 03:10 Glucose 238 mg/dL (74-106) H 12/08/23 03:10 Vancomycin Trough 23.2 ug/mL (5.0-15.0) H 12/07/23 06:38 Random Vancomycin 20.3 ug/mL (0.0-15.0) H 12/08/23 03:10 Microbiology Microbiology: Microbiology 12/03/23 16:20 Sputum, Induced/Lukens Gram Stain - Final 12/03/23 16:20 Sputum, Induced/Lukens Respiratory Culture - Final Meth. resistant Staph. aureus Yeast, not Evy albicans 11/29/23 09:50 Blood Culture (Wb) - Right Hand Blood Culture - Final No growth in 5 days. 12/03/23 16:55 Stool Enteric Bacteriology - Final 12/03/23 16:55 Stool Clostridioides difficile (PCR) - Final 11/28/23 13:16 Blood Culture (Wb) - Left Hand Blood Culture - Final No growth in 5 days. 11/25/23 10:45 Blood Culture (Wb) - Anticubital Right Blood Culture - Final No growth in 5 days. 11/25/23 10:38 Blood Culture (Wb) - Anticubital Left Blood Culture - Final Meth. resistant Staph. aureus 11/25/23 11:45 Urine, Catheterized Urine Culture - Final Culture exhibits no growth. 11/26/23 11:26 Stool Clostridioides difficile (PCR) - Final 11/25/23 11:40 Mucosa - Nose SARS-CoV-2, Influenza & RSV (PCR) - Final Dosing Weight Weight used for dosin kg Estimated Creatinine Clearance Estimated Creatinine Clearance: 28 Goal Trough Goal Trough: 15-20 mcg/mL Pharmacy Plan for Drug Dosing Pharmacy Plan for Drug Dosing: After the previous high trough level, a random vancomycin level was drawn 12/08/23 @0310. This remained high at 20.3. Will continue to hold off further dosing, and will have another random level drawn in 12 hours. Dosing will be resumed when the level drops below 20mcg/mL. Pharmacy Service will continue to monitor and adjust dosing as required. Follow-Up Labs Follow-Up Labs: Trough: Vancomycin (random) Date/Time Labs Ordered Labs to be done on [date and time ordered]: 12/08/23 @1500
[2023-12-08 04:30] LABS: Differential Comment SCANNED
[2023-12-08] MEDS: Levothyroxine 50 MCG Tablet GT (04:55)
[2023-12-08] MEDS: Furosemide 100 MG/10 ML Vial 80 MG IV (04:55)
[2023-12-08] MEDS: 0.9% Saline Lock 10 ML Syringe IV ×3 (05:08→16:40)
[2023-12-08 05:25] LABS: Bedside Glucose 204 mg/dL (74-106)
[2023-12-08] MEDS: Vital AF 1.2 Cal Liquid 1,000 ML 55 ML GT (06:31)
[2023-12-08] MEDS: CHLORHEXIDINE GLUC 2% CLOTH 1 EACH TOWELETTE TOPICAL (06:31)
--- NOTE | 2023-12-08 07:19 | PN.CC_ITS ---
Assessment & Plan Assessment/Plan (1) MRSA bacteremia: (2) Sepsis: PLAN: Plan RECOMMENDATIONS: 1. Antimicrobials per ID recommendations. 2. Continue bowel regimen 3. Continue appropriate DVT prophylaxis. 4. Attempt diuresis with Lasix drip 5. Continue propofol and fentanyl 6. Continue tube feeds IMPRESSIONS: 1. Sepsis secondary to MRSA bacteremia It is suspected that the patient developed post influenza pneumonia resulting in secondary bacteremia. The patient remains on antimicrobials per ID recommendations. No vegetations were seen on TTE. The patient remains hemodynamically stable. Patient is not on pressors at this time. WBC improving today compared to yesterday. No fevers been noted. 2. Acute combined respiratory failure Patient reportedly was found to be more lethargic over the weekend and was intubated secondary to decreased mental status. Patient was found to be retaining CO2. Patient was receiving significant Ativan at that time, but was placed on propofol initially. Patient appears to be appropriately sedated at this time. Continue current vent settings. Pleural effusion noted on chest x- ray with hypoxia on spontaneous breathing trial. Will attempt diuresis. Clinical suspicion patient is off of the Starling curve as he is positive almost 20 L over the course of his hospitalization. 3. History of atrial fibrillation/sinus pauses/coronary artery disease Cardiology is currently following to assist with medical management. Will defer management on rate/rhythm control strategy. Rate has been well-controlled .Patient's arrhythmia has improved with treatment of MRSA. May require a SERGIO in the future to evaluate for abscess formation. 4. History of paranoid schizophrenia/chronic kidney di sease/hypertension/diabetes mellitus/hypothyroidism Complicates care, management, recovery and prognosis. Continue supportive measures as noted above along with basal and sliding scale insulin coverage. Patient at full tube feeds. Okay to decrease bowel regimen TIME: 33 minutes of critical care time spent addressing patient's respiratory fa ilure, hypotension, review of all data and collaboration with care team Subjective Subjective Patient did okay overnight. Patient did receive significant Lasix, but urine output has been marginal. Patient unable to tolerate spontaneous breathing trial this morning secondary to hypoxia and tachypnea. Did discuss with daria mejia's next of kin yesterday. They stated that the patient would want to be aggressive, but would not tolerate hemodialysis if it came to this. Objective Data Objective Data Patient did have bowel movements overnight. Vital Signs: Vital Signs Temp Pulse Resp BP Pulse Ox O2 Del Method O2 Flow Rate 35.8 C L 118 H 24 H 154/63 H 94 Mechanical Ventilator 40 12/08/23 06:00 12/08/23 07:12 12/08/23 07:12 12/08/23 07:00 12/08/23 07:12 12/08/23 07:00 12/07/23 06:00 FiO2 35 12/08/23 07:12 Oxygen Flow Rate (L/min) 40 Oxygen Delivery Method Mechanical Ventilator Weight: 106.5 kg Body Mass Index (BMI) 33.7 Intake & Output: Intake and Output for Last 24 Hours 12/06/23 12/07/23 12/08/23 23:59 23:59 23:59 Intake Total 2176.18 / 2192.48 1841.99 / 1861.69 850.01 / 850.01 Output Total 690 / 690 1100 / 1100 850 / 850 Balance 1486.18 / 1502.48 741.99 / 761.69 0.01 / 0.01 Medical Nutrition Assessment Dietitian: Malnutrition Criteria Met Start: 12/01/23 09:36 Freq: Status: Active Protocol: Document 12/07/23 11:28 RMA (Rec: 12/07/23 11:28 RMA [id number]) Nutrition Malnutrition Evidence of Malnutrition Exists Yes Malnutrition (severe): Acute Illness/Injury Evidenced By Suboptimal Energy Intake ( Severe),Weight Loss (Severe) Intake Problem Inadequate Oral Intake Etiology related to decreased ability to consume sufficient energy to meet estimated nutrient needs Signs/Symptoms as evidenced by extended NPO status x 9 days and intubation with need for enteral nutrition. Status Active Problem Clinical Problem Acute Disease or Injury Related Malnutrition Etiology severe, acute malnutrition related to inadequate energy intake d/t swallowing difficulties Signs/Symptoms as evidenced by unintentional 4% wt loss < 5 days, PO intake meeting <50% of estimated energy needs x 6 days Status Active Problem Recommendation Dietitian Recommendations/Changes NPO while intubated; Will continue EN via OGT with Vital AF 1.2 to goal rate of 60mL/ hour w/ 100mL H2O flush every 4 hours to provide 1728 calories, 108 g protein, and 1767mL total fluid/day. Will adjust enteral nutrition support and water flushes as needed. Lab / Micro Data Attestation: I reviewed the patient's lab results. 12/08/23 03:10 12/08/23 03:10 Labs: Laboratory Results - last 24 hr 12/07/23 06:38: Vancomycin Trough 23.2 H 12/07/23 09:55: POC Glucose 160 H 12/07/23 15:03: POC Glucose 176 H 12/07/23 18:28: POC Glucose 142 H 12/07/23 20:16: POC Glucose 156 H 12/08/23 02:35: POC Glucose 186 H 12/08/23 03:10: WBC 15.3 H, RBC 2.68 L, Hgb 7.0 L, Hct 22.6 L, MCV 84.3, MCH 26.1 L, MCHC 31.0 L, RDW Std Deviation 55.1 H, RDW Coeff of Saman 21.5 H, Plt Count 197, MPV 11.8, Differential Comment SCANNED, Diff Path Review January, Sodium 144, Potassium 4.3, Chloride 115 H, Carbon Dioxide 23.0, Anion Gap 6, BUN 67 H, Creatinine 3.20 H, Estim Creat Clear Calc 28.23, Est GFR (MDRD) Af Amer 25 L, Est GFR (MDRD) Non-Af 21 L, BUN/Creatinine Ratio 20.9 H, Glucose 238 H, Calcium 8.7, Random Vancomycin 20.3 H 12/08/23 04:59: POC Glucose 204 H Micro: Microbiology 12/03/23 16:20 Sputum, Induced/Lukens Gram Stain - Final 12/03/23 16:20 Sputum, Induced/Lukens Respiratory Culture - Final Meth. resistant Staph. aureus Yeast, not Evy albicans 11/29/23 09:50 Blood Culture (Wb) - Right Hand Blood Culture - Final No growth in 5 days. 12/03/23 16:55 Stool Enteric Bacteriology - Final 12/03/23 16:55 Stool Clostridioides difficile (PCR) - Final 11/28/23 13:16 Blood Culture (Wb) - Left Hand Blood Culture - Final No growth in 5 days. 11/25/23 10:45 Blood Culture (Wb) - Anticubital Right Blood Culture - Final No growth in 5 days. 11/25/23 10:38 Blood Culture (Wb) - Anticubital Left Blood Culture - Final Meth. resistant Staph. aureus 11/25/23 11:45 Urine, Catheterized Urine Culture - Final Culture exhibits no growth. 11/26/23 11:26 Stool Clostridioides difficile (PCR) - Final 11/25/23 11:40 Mucosa - Nose SARS-CoV-2, Influenza & RSV (PCR) - Final Radiography Diagnostic Testing: Radiology Impression Chest X-Ray 12/07/23 21:45 IMPRESSION: 1. No significant interval change left lung pleural effusion with overlying consolidation and/or atelectasis. 2. Slight interval decrease in right lower lobe opacity likely representing consolidation. Electronically Signed: Tano Louise DO at 22:16 EDT , Rhythm Strip Rhythm Strip: Sinus Rhythm Rate: 82 Ectopy: - (No pauses noted.) Physical Exam Const Constitutional Narrative: RASS -1. Good vent synchrony. Some spontaneous limb movement today. Anasarca. General Appearance: patient mechanically ventilated HEENT normocephalic, head/scalp atraumatic and moist oral mucous membranes Eyes PERRL, EOMs intact bilaterally and conjunctivae normal Neck supple General: trachea midline Chest inspection of chest normal Resp normal respiratory effort Auscultation: rhonchi throughout (Improved with cough and suctioning); Negative for rales or wheezes Percussion: dullness Mid: left and Lower: left Cardio S1 normal heart sound, S2 normal heart sound, no murmurs, no rub and no gallops Rate: tachycardic GI normal to inspection, nondistended, normoactive bowel sounds Extremity General Extremity: edema; Negative for clubbing Skin Skin Narrative: Erythema with desquamation of the right upper extremity on the posterior aspect Neuro moves all extremities and no focal motor deficits Psych Psych Narrative: Not following commands Mood & Affect: flat affect Charges/Coding Procedures Hospitalists Procedures: 89461 Critical Care 1st Hr
[2023-12-08] MEDS: Menthol/Lanolin/Calamine/Znox 113 GM Tube 1 APPLIC TOPICAL ×2 (08:22→20:52)
[2023-12-08] MEDS: Chlorhexidine 15 ML PO ×2 (08:22→20:52)
[2023-12-08] MEDS: Aspirin 81 MG TAB.CHEW GT (08:22)
[2023-12-08] MEDS: Valproic Acid 250 MG/5 ML UDC 500 MG GT ×2 (08:23→20:51)
[2023-12-08] MEDS: Heparin Injection (Vial) 5,000 UNIT/ML VIAL 5000 UNIT SC ×2 (08:23→20:51)
[2023-12-08] MEDS: MEDROXYPROGESTERONE ACETATE 10 MG TABLET GT ×2 (08:24→20:51)
[2023-12-08] MEDS: Senna/Docusate Sodium 1 Tablet 2 TABLET GT ×2 (08:24→20:51)
[2023-12-08] MEDS: Pantoprazole Sodium 40 MG in 0.9% Normal Saline (100mL MB+) 100 ML 330 MG IV (08:30)
[2023-12-08] MEDS: fentaNYL drip 100 ML 12.5 MCG CONT INF ×2 (08:34→17:03)
[2023-12-08] MEDS: Furosemide 500 MG in Empty Viaflex 50 mL 1 EACH CONT INF (09:04)
[2023-12-08] MEDS: 0.9% Normal Saline (250mL Bag) 250 ML 10 ML IV (09:04)
[2023-12-08] MEDS: Insulin Glargine-YFGN 100 UNIT/ML Pen 30 UNIT SC ×2 (10:09→21:15)
[2023-12-08 10:30] LABS: Bedside Glucose 213 mg/dL (74-106)
--- NOTE | 2023-12-08 10:43 | PCM.PN.ID ---
Physical Exam Narrative No fever, on vent. Const no apparent distress Resp normal air movement and clear to auscultation bilaterally Cardio regular rate and regular rhythm GI soft to palpation, non-tender and non-distended Skin no rashes or lesions noted ID ID: Route of nutrition/ use of supplements: [] Nutritional Intake: [] IV Site: [] Browning Catheter: [] Assessment & Plan Assessment/Plan (1) MRSA bacteremia: PLAN: suspected due to post-flu pneumonia. Cont vanc. No veg seen on TTE. Bcx cleared 11/27. Wbc cont to improve. Will follow (2) Sepsis:
[2023-12-08] MEDS: Propofol 10MG/Ml 1,000 MG/100 ML Bottle 12.9 MG CONT INF ×2 (11:15→18:20)
--- NOTE | 2023-12-08 11:27 | PCM.PN.REN ---
Subjective Subjective No overnight events. On vent. Objective Data Objective Data Vital Signs: Vital Signs Temp Pulse Resp BP Pulse Ox O2 Del Method O2 Flow Rate 97.8 F 87 16 109/55 L 99 Mechanical Ventilator 40 12/08/23 08:00 12/08/23 11:24 12/08/23 11:24 12/08/23 11:00 12/08/23 11:24 12/08/23 11:00 12/07/23 06:00 FiO2 35 12/08/23 11:00 Oxygen Flow Rate (L/min) 40 Oxygen Delivery Method Mechanical Ventilator Weight: 106.5 kg Body Mass Index (BMI) 33.7 Intake & Output: Intake and Output for Last 24 Hours 12/06/23 12/07/23 12/08/23 23:59 23:59 23:59 Intake Total 2176.18 / 2192.48 1841.99 / 1861.69 1132.59 / 1132.59 Output Total 690 / 690 1100 / 1100 1450 / 1450 Balance 1486.18 / 1502.48 741.99 / 761.69 -317.41 / -317.41 Medical Nutrition Assessment Dietitian: Malnutrition Criteria Met Start: 12/01/23 09:36 Freq: Status: Active Protocol: Document 12/07/23 11:28 RMA (Rec: 12/07/23 11:28 RMA [id number]) Nutrition Malnutrition Evidence of Malnutrition Exists Yes Malnutrition (severe): Acute Illness/Injury Evidenced By Suboptimal Energy Intake ( Severe),Weight Loss (Severe) Intake Problem Inadequate Oral Intake Etiology related to decreased ability to consume sufficient energy to meet estimated nutrient needs Signs/Symptoms as evidenced by extended NPO status x 9 days and intubation with need for enteral nutrition. Status Active Problem Clinical Problem Acute Disease or Injury Related Malnutrition Etiology severe, acute malnutrition related to inadequate energy intake d/t swallowing difficulties Signs/Symptoms as evidenced by unintentional 4% wt loss < 5 days, PO intake meeting <50% of estimated energy needs x 6 days Status Active Problem Recommendation Dietitian Recommendations/Changes NPO while intubated; Will continue EN via OGT with Vital AF 1.2 to goal rate of 60mL/ hour w/ 100mL H2O flush every 4 hours to provide 1728 calories, 108 g protein, and 1767mL total fluid/day. Will adjust enteral nutrition support and water flushes as needed. Lab / Micro Data 12/08/23 03:10 12/08/23 03:10 Labs: Laboratory Results - last 24 hr 12/07/23 15:03: POC Glucose 176 H 12/07/23 18:28: POC Glucose 142 H 12/07/23 20:16: POC Glucose 156 H 12/08/23 02:35: POC Glucose 186 H 12/08/23 03:10: WBC 15.3 H, RBC 2.68 L, Hgb 7.0 L, Hct 22.6 L, MCV 84.3, MCH 26.1 L, MCHC 31.0 L, RDW Std Deviation 55.1 H, RDW Coeff of Saman 21.5 H, Plt Count 197, MPV 11.8, Differential Comment SCANNED, Diff Path Review January, Sodium 144, Potassium 4.3, Chloride 115 H, Carbon Dioxide 23.0, Anion Gap 6, BUN 67 H, Creatinine 3.20 H, Estim Creat Clear Calc 28.23, Est GFR (MDRD) Af Amer 25 L, Est GFR (MDRD) Non-Af 21 L, BUN/Creatinine Ratio 20.9 H, Glucose 238 H, Calcium 8.7, Random Vancomycin 20.3 H 12/08/23 04:59: POC Glucose 204 H 12/08/23 10:07: POC Glucose 213 H Micro: Microbiology 12/03/23 16:20 Sputum, Induced/Lukens Gram Stain - Final 12/03/23 16:20 Sputum, Induced/Lukens Respiratory Culture - Final Meth. resistant Staph. aureus Yeast, not Evy albicans 11/29/23 09:50 Blood Culture (Wb) - Right Hand Blood Culture - Final No growth in 5 days. 12/03/23 16:55 Stool Enteric Bacteriology - Final 12/03/23 16:55 Stool Clostridioides difficile (PCR) - Final 11/28/23 13:16 Blood Culture (Wb) - Left Hand Blood Culture - Final No growth in 5 days. 11/25/23 10:45 Blood Culture (Wb) - Anticubital Right Blood Culture - Final No growth in 5 days. 11/25/23 10:38 Blood Culture (Wb) - Anticubital Left Blood Culture - Final Meth. resistant Staph. aureus 11/25/23 11:45 Urine, Catheterized Urine Culture - Final Culture exhibits no growth. 11/26/23 11:26 Stool Clostridioides difficile (PCR) - Final 11/25/23 11:40 Mucosa - Nose SARS-CoV-2, Influenza & RSV (PCR) - Final Radiography Diagnostic Testing: Radiology Impression Chest X-Ray 12/07/23 21:45 IMPRESSION: 1. No significant interval change left lung pleural effusion with overlying consolidation and/or atelectasis. 2. Slight interval decrease in right lower lobe opacity likely representing consolidation. Electronically Signed: Tano Louise, DO at 22:16 EDT , Rhythm Strip Rhythm Strip: Sinus Rhythm Rate: 82 Ectopy: - (No pauses noted.) Physical Exam Narrative intubated no obvious distress s1s2 no murmurs lungs clear abdomen soft Trace edema bilateral lower legs ratliff + Assessment & Plan Assessment/Plan (1) JULIETTE (acute kidney injury): PLAN: - JULIETTE on possible CKD stage IIIb, JULIETTE is likely ATN due to sepsis. Serum creatinine 2.41 mg/dL on admission, improved to 1.81 on 11/25, creatinine peaked up to 3.61 on 12/05 and today creatinine is better 3.20. Likely recovering. Overall volume overloaded. Patient is on Lasix drip, renal function improving. Patient has good urine output/response on Lasix drip, so far today around 1.5 L. No acute indication for SLEEVE SEWER. - CKD stage IIIb: Last creatinine prior to this admission was 1.5 from late last year. Most of the hospitalization his creatinine was around 1.8-1.9. Urine analysis shows protein, cells. When Ratliff catheter is out, we will repeat urine analysis Unlikely obstructive, patient has ratliff - MRSA bacteremia; no vegetation on TTE. ID following
[2023-12-08] MEDS: Ferrous Sulfate 300 MG/5 ML UDC GT (11:33)
--- NOTE | 2023-12-08 13:21 | PCM.PN.HOSP ---
Reason for Visit Reason for Visit: Diagnoses Sepsis, unspecified organism (11/25/23) Methicillin resistant Staphylococcus aureus infection as the cause of diseases classified elsewhere (11/25/23) Essential (primary) hypertension (11/25/23) Unspecified atrial fibrillation (11/25/23) Pneumonia, unspecified organism (11/25/23) Respiratory failure, unspecified, unspecified whether with hypoxia or hypercapnia (11/25/23) Acute kidney failure, unspecified (11/25/23) Bacteremia (11/25/23) Subjective Subjective No acute events overnight. Patient seen at bedside this morning. Remains intubated and sedated, opening eyes to voice again today but not following any commands. Patient was transition to a Lasix drip earlier this morning, notably had good urine output on IV Lasix 40 mg 3 times daily yesterday with some improvement in creatinine and he does remain volume overloaded. Objective Data Objective Data Vital Signs: Vital Signs Temp Pulse Resp BP Pulse Ox O2 Del Method O2 Flow Rate 98.7 F 105 H 20 H 133/70 H 98 Mechanical Ventilator 40 12/08/23 12:00 12/08/23 13:17 12/08/23 13:17 12/08/23 12:00 12/08/23 13:17 12/08/23 12:00 12/07/23 06:00 FiO2 35 12/08/23 13:17 Oxygen Flow Rate (L/min) 40 Oxygen Delivery Method Mechanical Ventilator Weight: 106.5 kg Body Mass Index (BMI) 33.7 Intake & Output: Intake and Output for Last 24 Hours 12/06/23 12/07/23 12/08/23 23:59 23:59 23:59 Intake Total 2176.18 / 2192.48 1841.99 / 1861.69 1248.72 / 1248.72 Output Total 690 / 690 1100 / 1100 1850 / 1850 Balance 1486.18 / 1502.48 741.99 / 761.69 -601.28 / -601.28 Medical Nutrition Assessment Dietitian: Malnutrition Criteria Met Start: 12/01/23 09:36 Freq: Status: Active Protocol: Document 12/07/23 11:28 RMA (Rec: 12/07/23 11:28 RMA [id number]) Nutrition Malnutrition Evidence of Malnutrition Exists Yes Malnutrition (severe): Acute Illness/Injury Evidenced By Suboptimal Energy Intake ( Severe),Weight Loss (Severe) Intake Problem Inadequate Oral Intake Etiology related to decreased ability to consume sufficient energy to meet estimated nutrient needs Signs/Symptoms as evidenced by extended NPO status x 9 days and intubation with need for enteral nutrition. Status Active Problem Clinical Problem Acute Disease or Injury Related Malnutrition Etiology severe, acute malnutrition related to inadequate energy intake d/t swallowing difficulties Signs/Symptoms as evidenced by unintentional 4% wt loss < 5 days, PO intake meeting <50% of estimated energy needs x 6 days Status Active Problem Recommendation Dietitian Recommendations/Changes NPO while intubated; Will continue EN via OGT with Vital AF 1.2 to goal rate of 60mL/ hour w/ 100mL H2O flush every 4 hours to provide 1728 calories, 108 g protein, and 1767mL total fluid/day. Will adjust enteral nutrition support and water flushes as needed. Lab / Micro Data 12/08/23 03:10 12/08/23 03:10 Labs: Laboratory Results - last 24 hr 12/07/23 15:03: POC Glucose 176 H 12/07/23 18:28: POC Glucose 142 H 12/07/23 20:16: POC Glucose 156 H 12/08/23 02:35: POC Glucose 186 H 12/08/23 03:10: WBC 15.3 H, RBC 2.68 L, Hgb 7.0 L, Hct 22.6 L, MCV 84.3, MCH 26.1 L, MCHC 31.0 L, RDW Std Deviation 55.1 H, RDW Coeff of Saman 21.5 H, Plt Count 197, MPV 11.8, Differential Comment SCANNED, Diff Path Review January, Sodium 144, Potassium 4.3, Chloride 115 H, Carbon Dioxide 23.0, Anion Gap 6, BUN 67 H, Creatinine 3.20 H, Estim Creat Clear Calc 28.23, Est GFR (MDRD) Af Amer 25 L, Est GFR (MDRD) Non-Af 21 L, BUN/Creatinine Ratio 20.9 H, Glucose 238 H, Calcium 8.7, Random Vancomycin 20.3 H 12/08/23 04:59: POC Glucose 204 H 12/08/23 10:07: POC Glucose 213 H Micro: Microbiology 12/03/23 16:20 Sputum, Induced/Lukens Gram Stain - Final 12/03/23 16:20 Sputum, Induced/Lukens Respiratory Culture - Final Meth. resistant Staph. aureus Yeast, not Evy albicans 11/29/23 09:50 Blood Culture (Wb) - Right Hand Blood Culture - Final No growth in 5 days. 12/03/23 16:55 Stool Enteric Bacteriology - Final 12/03/23 16:55 Stool Clostridioides difficile (PCR) - Final 11/28/23 13:16 Blood Culture (Wb) - Left Hand Blood Culture - Final No growth in 5 days. 11/25/23 10:45 Blood Culture (Wb) - Anticubital Right Blood Culture - Final No growth in 5 days. 11/25/23 10:38 Blood Culture (Wb) - Anticubital Left Blood Culture - Final Meth. resistant Staph. aureus 11/25/23 11:45 Urine, Catheterized Urine Culture - Final Culture exhibits no growth. 11/26/23 11:26 Stool Clostridioides difficile (PCR) - Final 11/25/23 11:40 Mucosa - Nose SARS-CoV-2, Influenza & RSV (PCR) - Final Radiography Diagnostic Testing: Radiology Impression Chest X-Ray 12/07/23 21:45 IMPRESSION: 1. No significant interval change left lung pleural effusion with overlying consolidation and/or atelectasis. 2. Slight interval decrease in right lower lobe opacity likely representing consolidation. Electronically Signed: Tano Louise DO at 22:16 EDT , Rhythm Strip Rhythm Strip: Sinus Rhythm Rate: 82 Ectopy: - (No pauses noted.) Physical Exam Const Constitutional Narrative: Intubated and sedated. Awakening to voice but not following commands. Obese. HEENT normocephalic, head/scalp atraumatic and nasal mucous membranes and turbinates normal Eyes EOMs intact bilaterally Chest inspection of chest normal Resp normal respiratory effort and no use of accessory muscles Resp Narrative: Intubated and mechanically ventilated. On low vent settings. Good air movement on right, diminished breath sounds on left throughout. No wheezing noted. Cardio regular rate, regular rhythm, no murmurs and peripheral pulses 2+ throughout GI normal to inspection, nondistended, normoactive bowel sounds, soft to palpation, non-tender and non-distended Extremity Extremity Narrative: +1-2 lower extremity edema noted. Skin no rashes or lesions noted Assessment & Plan Assessment/Plan (1) MRSA bacteremia: (2) Sepsis: (3) Pneumonia: (4) Respiratory failure: (5) JULIETTE (acute kidney injury): PLAN: Plan Patient is a 63-year-old male who presented to [facility] ED on 11/25/2023 with worsening shortness of breath. 1. Acute hypoxic and hypercapnic respiratory failure Initially hypoxia presumed secondary to secondary MRSA pneumonia after recent flu pneumonia. Had worsening mental status and hypoxia on 12/02 requiring intubation. She was found to be hypercapnic postintubation. This was suspected secondary to decreased respiratory drive from possible overmedication as notable below. ? Professor Of Social Work following. Remains intubated and sedated. Had good urine output on IV Lasix 40 mg every 8 hours on 12/05 and 12/06 but remains volume overloaded, started on Lasix drip on 12/07. Weaning supplemental oxygen as able. SAT/SBT trials per senior tax specialist recs. 2. Hypotension with concern for shock, improved; sepsis without shock secondary to MRSA bacteremia Initially presented with sepsis and found to have MRSA bacteremia presumed secondary to a MRSA pneumonia that developed post influenza pneumonia. TTE showed no valvular abnormalities. Developed hypotension after intubation and sedation, suspected that hypotension is likely secondary to sedation requirements. ? Professor Of Social Work and ID following. Hemodynamically stable, has been off Levophed since morning of 12/05. Continue vancomycin and meropenem per ID recs. 3. Acute metabolic encephalopathy Patient noted to have worsening mentation on 11/27 of unclear etiology. Neurology was consulted for questionable seizure activity. MRI brain negative, EEG negative. Lab workup fairly benign. Neurology suspected toxic metabolic encephalopathy that was multifactorial in setting of sepsis, pneumonia, JULIETTE, delirium and polypharmacy from sedative medications of Ativan, Haldol and DPA, as well as a poor mental status at baseline. Patient required intubation on 12/02 as noted above. ? Neurology followed. Currently intubated and sedated. Holding home Haldol and Ativan to minimize use of sedation medications per neurology recommendations. Patient awakening to voice but not purposely following commands. Weaning sedation as able. 4. JULIETTE on suspected CKD stage IIIb Creatinine 2.05 on admit, baseline creatinine around 1.8-2.1. Noted to have acutely worsened creatinine to 3.08 on 11/28 which then recovered back to baseline by 12/01. However, again had worsening of creatinine to 3.27 on 12/03 with decreased urine output suspected to be secondary to ATN from sepsis. ? Nephrology following. Creatinine 3.20 on 12/07, stable from previous. Increased to IV Lasix drip at 10 ml/hr as noted above. Continue to monitor daily BMP and urine output. 5. Volume overload, improving ? Patient noted to be +10 L from volume status standpoint on 12/04, secondary to heavy IV fluids administered in setting of sepsis and concern for shock as noted above. Professor Of Social Work and nephrology following as above. Diuresis limited by hypotension as noted above. Diuresing as noted above. 6. A-fib with RVR, bradycardia with sinus pauses ? Cardiology evaluated on 11/29. Patient was noted to be on high-dose beta-diogo at that time and had some pauses on monitoring 6 seconds, unclear patient was symptomatic with these pauses. Not an urgent pacemaker candidate given bacteremia. Beta-diogo discontinued for now. Has had improvement in heart rate and no recent sinus pauses. Continue cardiac monitoring. 7. Hypernatremia, improved ? Nephrology following as above. Presumed secondary to dehydration. Sodium peaked at 152 on 12/02, now stable at 1 44-1 45 since 12/05. Continue 100 mL H2O with tube feeds every 4 hours. Monitor daily sodium. 8. Acute on chronic anemia ? Known history of iron deficiency anemia, was on home iron supplement. Hemoglobin 10.5 on admit, slowly downtrending since then. Most recent hemoglobin 7.0 on 12/07. No active signs of bleeding. Iron studies on 12/04 showed anemia of chronic disease. Continue to monitor CBC daily. Transfuse for hemoglobin less than 7. Chronic medical conditions: ? Obesity: BMI 32 on admit. Complicates hospital course, care and prognosis. ? Paranoid schizophrenia/anxiety and depression/sexual aggression: Lives in [facility]. Continue home Depakote, holding home Haldol and Ativan as noted above. ? Type 2 diabetes mellitus: Home regimen of insulin glargine 35 units at night, lispro 17 units with meals, metformin 1000 mg twice daily, Jardiance 25 mg daily. Blood sugars elevated while inpatient. Continue Lantus 25 units twice daily and sliding-scale insulin every 4 hours as needed with tube feeds for now. ? Hypothyroidism: Continue home Synthroid. ? CAD/hypertension/hyperlipidemia: Continue home aspirin, statin, amlodipine. Holding home Lopressor due to bradycardia as noted above. Holding home losartan and Lasix for JULIETTE. ? Tobacco abuse: Nicotine replacement therapy available as needed. DVT prophylaxis: Heparin subcu CODE STATUS: Full code, verified Expected disposition: TBD Total clinical time spent by myself addressing the patient's medical issues, reviewing all the data, and collaborating with patient's care team: 35 minutes. Charges/Coding Visit Charges Inpatient E&M: 52404 Subs Hosp L2
[2023-12-08] MEDS: Nystatin Powder 15gm Bottle 1 APPLIC TOPICAL ×2 (13:35→20:52)
[2023-12-08 13:53] LABS: Bedside Glucose 200 mg/dL (74-106)
[2023-12-08 14:38] LABS: Pathologist Review Reviewed
--- NOTE | 2023-12-08 16:17 | PCM.RX.CS ---
Consult Antibiotic Management Pharmacy has been consulted to manage selected antibiotic: Vancomycin Type of Intervention Type of Consult: Follow-up Labs Labs: Sodium 144 mmol/L (136-145) 12/08/23 03:10 Potassium 4.3 mmol/L (3.5-5.1) 12/08/23 03:10 Chloride 115 mmol/L (98-107) H 12/08/23 03:10 Carbon Dioxide 23.0 mmol/L (21.0-32.0) 12/08/23 03:10 Anion Gap 6 (5-15) 12/08/23 03:10 BUN 67 mg/dL (7-18) H 12/08/23 03:10 Creatinine 3.20 mg/dL (0.70-1.30) H 12/08/23 03:10 Est GFR (MDRD) Af Amer 25 mL/min (>60) L 12/08/23 03:10 Est GFR (MDRD) Non-Af 21 mL/min (>60) L 12/08/23 03:10 BUN/Creatinine Ratio 20.9 RATIO (10-20) H 12/08/23 03:10 Glucose 238 mg/dL (74-106) H 12/08/23 03:10 Vancomycin Trough 23.2 ug/mL (5.0-15.0) H 12/07/23 06:38 Random Vancomycin 18.0 ug/mL (0.0-15.0) H 12/08/23 15:15 Microbiology Microbiology: Microbiology 12/03/23 16:20 Sputum, Induced/Lukens Gram Stain - Final 12/03/23 16:20 Sputum, Induced/Lukens Respiratory Culture - Final Meth. resistant Staph. aureus Yeast, not Evy albicans 11/29/23 09:50 Blood Culture (Wb) - Right Hand Blood Culture - Final No growth in 5 days. 12/03/23 16:55 Stool Enteric Bacteriology - Final 12/03/23 16:55 Stool Clostridioides difficile (PCR) - Final 11/28/23 13:16 Blood Culture (Wb) - Left Hand Blood Culture - Final No growth in 5 days. 11/25/23 10:45 Blood Culture (Wb) - Anticubital Right Blood Culture - Final No growth in 5 days. 11/25/23 10:38 Blood Culture (Wb) - Anticubital Left Blood Culture - Final Meth. resistant Staph. aureus 11/25/23 11:45 Urine, Catheterized Urine Culture - Final Culture exhibits no growth. 11/26/23 11:26 Stool Clostridioides difficile (PCR) - Final 11/25/23 11:40 Mucosa - Nose SARS-CoV-2, Influenza & RSV (PCR) - Final Goal Trough Goal Trough: 15-20 mcg/mL Pharmacy Plan for Drug Dosing Pharmacy Plan for Drug Dosing: VANCOMYCIN LEVEL RECEIVED Current Vancomycin Dose: ON HOLD- was previously on 1000mg IV Q36hr Number of Doses Received: several Vancomycin Level: 18 Hours Since Last Dose: 67hrs Renal Function: 3.2 Renal Function Trend: improved from yesterday, but still significantly impaired Lab/Micro: Bcx and Scx growing MRSA Vancomycin Plan/Comments: Patient had a random trough drawn which resulted in a value of 18 (67hs after last administered dose). Patient with impaired renal function, no plans for HD at this time. Since patient has been supratherapeutic on Q36hr dosing, at this time we will dose based on levels. Will give patient Vancomycin 750gm IV x1 tonight and recheck a trough 12/09 with AM labs. Further dosing pending random levels Pending Level: *RANDOM* level 12/10/23 @0600 with AM labs Pharmacy Service will continue to monitor and adjust dosing as required.
[2023-12-08] MEDS: Vancomycin HCl 750 MG in 0.9% Normal Saline (250mL Bag) 250 ML 250 MG IV (16:40)
[2023-12-08 17:48] LABS: Bedside Glucose 176 mg/dL (74-106)
[2023-12-08] MEDS: traZODone 100 MG Tablet GT (20:51)
[2023-12-08] MEDS: Atorvastatin Calcium 80 MG Tablet GT (20:51)
[2023-12-08] MEDS: Valproic Acid 250 MG/5 ML UDC GT (20:51)
[2023-12-08 21:35] LABS: Bedside Glucose 176 mg/dL (74-106)
[2023-12-09] VITALS (42 sets, daily range): BP systolic 92–167; BP diastolic 53–82; PULSE 16–123; RESP 14–37; TEMP 35.8–37.8; O2SAT 85–100; BMI 33.1
[2023-12-09] MEDS: Vital AF 1.2 Cal Liquid 1,000 ML 55 ML GT (01:00)
[2023-12-09] MEDS: Propofol 10MG/Ml 1,000 MG/100 ML Bottle 12.9 MG CONT INF ×3 (01:40→22:46)
[2023-12-09] MEDS: fentaNYL drip 100 ML 12.5 MCG CONT INF (01:43)
[2023-12-09] MEDS: Insulin Lispro 100 UNIT/ML INSULN.PEN SC ×4 (02:35→18:21)
[2023-12-09 02:55] LABS: Bedside Glucose 158 mg/dL (74-106)
[2023-12-09 03:37] LABS: Hemoglobin 6.9 g/dL (13.0-16.5); Mean Corp Hgb Conc 31.4 g/dL (32-36); Mean Corpuscular Volume 85.9 fL (80-94); POSITIVE COUNT YES; POSITIVE MORPHOLOGY YES; Platelet Count 178 K/mm3 (150-450); RBC Distribution Width CV 21.7 % (11.6-14.6); RBC Distribution Width SD 53.8 fl (35.1-43.9); Red Blood Count 2.56 M/mm3 (4.6-6.2); White Blood Count 12.3 K/mm3 (4.4-11.0)
[2023-12-09 03:40] LABS: Scan Indicated on CBC? Y/N YES- FLAGS NOTED
[2023-12-09 04:06] LABS: Anion Gap 3 (5-15); BUN 60 mg/dL (7-18); BUN/Creat Ratio 20.3 RATIO (10-20); Calcium,Total 8.6 mg/dL (8.5-10.1); Chloride 116 mmol/L (98-107); Creatinine, Serum 2.96 mg/dL (0.70-1.30); EST Glomerular Filtration Rate 23 mL/min (>60); Est Glom Filt Rate - Afr Amer 28 mL/min (>60); Estimated Creatinine Clearance 30.41 ml/min; Glucose 204 mg/dL (74-106); Potassium 4.4 mmol/L (3.5-5.1); Sodium Level 145 mmol/L (136-145)
[2023-12-09] MEDS: Levothyroxine 50 MCG Tablet GT (05:53)
[2023-12-09] MEDS: Nystatin Powder 15gm Bottle 1 APPLIC TOPICAL ×3 (05:53→22:16)
[2023-12-09] MEDS: 0.9% Saline Lock 10 ML Syringe IV ×2 (05:53→08:44)
[2023-12-09 06:20] LABS: Bedside Glucose 163 mg/dL (74-106)
--- NOTE | 2023-12-09 07:06 | PN.CC_ITS ---
Assessment & Plan Assessment/Plan (1) MRSA bacteremia: (2) Sepsis: PLAN: Plan RECOMMENDATIONS: 1. Antimicrobials per ID recommendations. 2. Continue bowel regimen 3. Continue appropriate DVT prophylaxis. 4. Attempt diuresis with increased Lasix drip 5. Continue propofol and fentanyl. Add Seroquel 6. Continue tube feeds IMPRESSIONS: 1. Sepsis secondary to MRSA bacteremia It is suspected that the patient developed post influenza pneumonia resulting in secondary bacteremia. The patient remains on antimicrobials per ID recommendations. No vegetations were seen on TTE. The patient remains hemodynamically stable. Patient is not on pressors at this time. WBC stable. No fevers been noted. 2. Acute combined respiratory failure Patient reportedly was found to be more lethargic over the weekend and was intubated secondary to decreased mental status. Patient was found to be retaining CO2. Patient was receiving significant Ativan at that time, but was placed on propofol initially. Patient appears to be appropriately sedated at this time. Continue current vent settings. Will continue with diuresis. Seroquel will be added to help with potential trial. Precedex has been avoided secondary to previous block/arrhythmias. Clinical suspicion patient is off of the Starling curve as he is positive almost 20 L over the course of his hospitalization. 3. History of atrial fibrillation/sinus pauses/coronary artery disease Cardiology is currently following to assist with medical management. Will defer management on rate/rhythm control strategy. Rate has been well- controlled.Patient's arrhythmia has improved with treatment of MRSA. May require a SERGIO in the future to evaluate for abscess formation. 4. History of paranoid schizophrenia/chronic kidney disease/hypertension/diabetes mellitus/hypothyroidism Complicates care, management, recovery and prognosis. Continue supportive measures as noted above along with basal and sliding scale insulin coverage. Patient at full tube feeds. Okay to decrease bowel regimen. Patient with a slow drift in hemoglobin. 1 unit packed red blood cells will be given. TIME: 35 minutes of critical care time spent addressing patient's respiratory failure, hypotension, review of all data and collaboration with care team Subjective Subjective Patient is tolerated diuresis well. Patient did have an episode where he coughed himself off the bed last night and had significant bradycardia. Patient was able to recover. Spontaneous breathing trial this morning was discontinued secondary to agitation, tachypnea and tachycardia. Objective Data Objective Data Vital Signs: Vital Signs Temp Pulse Resp BP Pulse Ox O2 Del Method O2 Flow Rate 36.4 C L 72 16 92/55 L 96 Mechanical Ventilator 40 12/09/23 07:00 12/09/23 07:00 12/09/23 07:00 12/09/23 07:00 12/09/23 07:00 12/09/23 07:00 12/07/23 06:00 FiO2 45 12/09/23 07:00 Oxygen Flow Rate (L/min) 40 Oxygen Delivery Method Mechanical Ventilator Weight: 104.9 kg Body Mass Index (BMI) 33.1 Intake & Output: Intake and Output for Last 24 Hours 12/07/23 12/08/23 12/09/23 23:59 23:59 23:59 Intake Total 1841.99 / 1861.69 2731.11 / 2856.51 893.60 / 893.60 Output Total 1100 / 1100 3050 / 3050 1150 / 1150 Balance 741.99 / 761.69 -318.89 / -193.49 -256.40 / -256.40 Medical Nutrition Assessment Dietitian: Malnutrition Criteria Met Start: 12/01/23 09:36 Freq: Status: Active Protocol: Document 12/07/23 11:28 RMA (Rec: 12/07/23 11:28 RMA [id number]) Nutrition Malnutrition Evidence of Malnutrition Exists Yes Malnutrition (severe): Acute Illness/Injury Evidenced By Suboptimal Energy Intake ( Severe),Weight Loss (Severe) Intake Problem Inadequate Oral Intake Etiology related to decreased ability to consume sufficient energy to meet estimated nutrient needs Signs/Symptoms as evidenced by extended NPO status x 9 days and intubation with need for enteral nutrition. Status Active Problem Clinical Problem Acute Disease or Injury Related Malnutrition Etiology severe, acute malnutrition related to inadequate energy intake d/t swallowing difficulties Signs/Symptoms as evidenced by unintentional 4% wt loss < 5 days, PO intake meeting <50% of estimated energy needs x 6 days Status Active Problem Recommendation Dietitian Recommendations/Changes NPO while intubated; Will continue EN via OGT with Vital AF 1.2 to goal rate of 60mL/ hour w/ 100mL H2O flush every 4 hours to provide 1728 calories, 108 g protein, and 1767mL total fluid/day. Will adjust enteral nutrition support and water flushes as needed. Lab / Micro Data Attestation: I reviewed the patient's lab results. 12/09/23 03:30 12/09/23 03:30 Labs: Laboratory Results - last 24 hr 12/08/23 03:10: Diff Path Review Reviewed 12/08/23 10:07: POC Glucose 213 H 12/08/23 13:34: POC Glucose 200 H 12/08/23 15:15: Random Vancomycin 18.0 H 12/08/23 17:29: POC Glucose 176 H 12/08/23 21:14: POC Glucose 176 H 12/09/23 02:34: POC Glucose 158 H 12/09/23 03:30: WBC 12.3 H, RBC 2.56 L, Hgb 6.9 L, Hct 22.0 L, MCV 85.9, MCH 27.0, MCHC 31.4 L, RDW Std Deviation 53.8 H, RDW Coeff of Saman 21.7 H, Plt Count 178, Sodium 145, Potassium 4.4, Chloride 116 H, Carbon Dioxide 26.0, Anion Gap 3 L, BUN 60 H, Creatinine 2.96 H, Estim Creat Clear Calc 30.41, Est GFR (MDRD) Af Amer 28 L, Est GFR (MDRD) Non-Af 23 L, BUN/Creatinine Ratio 20.3 H, Glucose 204 H, Calcium 8.6 12/09/23 05:56: POC Glucose 163 H Micro: Microbiology 12/03/23 16:20 Sputum, Induced/Lukens Gram Stain - Final 12/03/23 16:20 Sputum, Induced/Lukens Respiratory Culture - Final Meth. resistant Staph. aureus Yeast, not Evy albicans 11/29/23 09:50 Blood Culture (Wb) - Right Hand Blood Culture - Final No growth in 5 days. 12/03/23 16:55 Stool Enteric Bacteriology - Final 12/03/23 16:55 Stool Clostridioides difficile (PCR) - Final 11/28/23 13:16 Blood Culture (Wb) - Left Hand Blood Culture - Final No growth in 5 days. 11/25/23 10:45 Blood Culture (Wb) - Anticubital Right Blood Culture - Final No growth in 5 days. 11/25/23 10:38 Blood Culture (Wb) - Anticubital Left Blood Culture - Final Meth. resistant Staph. aureus 11/25/23 11:45 Urine, Catheterized Urine Culture - Final Culture exhibits no growth. 11/26/23 11:26 Stool Clostridioides difficile (PCR) - Final 11/25/23 11:40 Mucosa - Nose SARS-CoV-2, Influenza & RSV (PCR) - Final Rhythm Strip Rhythm Strip: Sinus Tach Rate: 123 Ectopy: - (No pauses noted.) Physical Exam Const Constitutional Narrative: RASS -2. Good vent synchrony. Anasarca. General Appearance: patient mechanically ventilated HEENT normocephalic, head/scalp atraumatic and moist oral mucous membranes Eyes PERRL, EOMs intact bilaterally and conjunctivae normal Neck supple General: trachea midline Chest inspection of chest normal Resp normal respiratory effort Auscultation: rhonchi throughout (Improved with cough and suctioning); Negative for rales or wheezes Percussion: dullness Mid: left and Lower: left Cardio S1 normal heart sound, S2 normal heart sound, no murmurs, no rub and no gallops Rate: tachycardic GI normal to inspection, nondistended, normoactive bowel sounds Extremity General Extremity: edema; Negative for clubbing Skin Skin Narrative: Erythema with desquamation of the right upper extremity on the posterior aspect is unchanged Neuro moves all extremities and no focal motor deficits Psych Psych Narrative: Not following commands Mood & Affect: flat affect Charges/Coding Procedures Hospitalists Procedures: 17936 Critical Care 1st Hr
[2023-12-09] MEDS: Propofol 10MG/Ml 1,000 MG/100 ML Bottle 16.1 MG CONT INF (08:42)
[2023-12-09] MEDS: Chlorhexidine 15 ML PO ×2 (08:44→22:16)
[2023-12-09] MEDS: Valproic Acid 250 MG/5 ML UDC 500 MG GT ×2 (08:44→22:15)
[2023-12-09] MEDS: Aspirin 81 MG TAB.CHEW GT (08:44)
[2023-12-09] MEDS: MEDROXYPROGESTERONE ACETATE 10 MG TABLET GT ×2 (08:45→22:15)
[2023-12-09] MEDS: Heparin Injection (Vial) 5,000 UNIT/ML VIAL 5000 UNIT SC ×2 (08:45→22:16)
[2023-12-09] MEDS: Menthol/Lanolin/Calamine/Znox 113 GM Tube 1 APPLIC TOPICAL ×2 (08:46→22:16)
[2023-12-09] MEDS: QUEtiapine 25 MG Tablet 50 MG GT ×2 (08:49→22:16)
[2023-12-09] MEDS: CHLORHEXIDINE GLUC 2% CLOTH 1 EACH TOWELETTE TOPICAL (08:52)
[2023-12-09] MEDS: Pantoprazole Sodium 40 MG in 0.9% Normal Saline (100mL MB+) 100 ML 330 MG IV (09:12)
--- NOTE | 2023-12-09 09:41 | CASEMGMT ---
Dr. Lawrence states that he talked to the pt NOK (Pt Brother) and the Brother states again that he is wanting to be aggressive with the pt care e/f HD as the brother states the pt will not be able to tolerate HD d/t agitation. Dr. Lawrence states that the plan is to continue the pt on the Lasix drip and if this does not help the pt medically then the pt may qualify for Hospice. SW is aware.
[2023-12-09] MEDS: fentaNYL drip 100 ML 15 MCG CONT INF ×3 (10:04→23:26)
[2023-12-09 11:05] LABS: Bedside Glucose 172 mg/dL (74-106)
[2023-12-09] MEDS: Ferrous Sulfate 300 MG/5 ML UDC GT (11:32)
[2023-12-09] MEDS: Insulin Glargine-YFGN 100 UNIT/ML Pen 30 UNIT SC ×2 (11:32→22:26)
--- NOTE | 2023-12-09 13:05 | PCM.PN.REN ---
Subjective Subjective Good urine output, creatinine stable. Objective Data Objective Data Vital Signs: Vital Signs Temp Pulse Resp BP Pulse Ox O2 Del Method O2 Flow Rate 97.7 F L 64 16 110/61 100 Mechanical Ventilator 40 12/09/23 12:45 12/09/23 12:45 12/09/23 12:45 12/09/23 12:45 12/09/23 12:45 12/09/23 12:45 12/07/23 06:00 FiO2 35 12/09/23 12:45 Oxygen Flow Rate (L/min) 40 Oxygen Delivery Method Mechanical Ventilator Weight: 104.9 kg Body Mass Index (BMI) 33.1 Intake & Output: Intake and Output for Last 24 Hours 12/07/23 12/08/23 12/09/23 23:59 23:59 23:59 Intake Total 1841.99 / 1861.69 2731.11 / 2856.51 1787.50 / 1787.50 Output Total 1100 / 1100 3050 / 3050 1925 / 1925 Balance 741.99 / 761.69 -318.89 / -193.49 -137.50 / -137.50 Medical Nutrition Assessment Dietitian: Malnutrition Criteria Met Start: 12/01/23 09:36 Freq: Status: Active Protocol: Document 12/07/23 11:28 RMA (Rec: 12/07/23 11:28 RMA [id number]) Nutrition Malnutrition Evidence of Malnutrition Exists Yes Malnutrition (severe): Acute Illness/Injury Evidenced By Suboptimal Energy Intake ( Severe),Weight Loss (Severe) Intake Problem Inadequate Oral Intake Etiology related to decreased ability to consume sufficient energy to meet estimated nutrient needs Signs/Symptoms as evidenced by extended NPO status x 9 days and intubation with need for enteral nutrition. Status Active Problem Clinical Problem Acute Disease or Injury Related Malnutrition Etiology severe, acute malnutrition related to inadequate energy intake d/t swallowing difficulties Signs/Symptoms as evidenced by unintentional 4% wt loss < 5 days, PO intake meeting <50% of estimated energy needs x 6 days Status Active Problem Recommendation Dietitian Recommendations/Changes NPO while intubated; Will continue EN via OGT with Vital AF 1.2 to goal rate of 60mL/ hour w/ 100mL H2O flush every 4 hours to provide 1728 calories, 108 g protein, and 1767mL total fluid/day. Will adjust enteral nutrition support and water flushes as needed. Lab / Micro Data 12/09/23 03:30 12/09/23 03:30 Labs: Laboratory Results - last 24 hr 12/08/23 03:10: Diff Path Review Reviewed 12/08/23 13:34: POC Glucose 200 H 12/08/23 15:15: Random Vancomycin 18.0 H 12/08/23 17:29: POC Glucose 176 H 12/08/23 21:14: POC Glucose 176 H 12/09/23 02:34: POC Glucose 158 H 12/09/23 03:30: WBC 12.3 H, RBC 2.56 L, Hgb 6.9 L, Hct 22.0 L, MCV 85.9, MCH 27.0, MCHC 31.4 L, RDW Std Deviation 53.8 H, RDW Coeff of Saman 21.7 H, Plt Count 178, Sodium 145, Potassium 4.4, Chloride 116 H, Carbon Dioxide 26.0, Anion Gap 3 L, BUN 60 H, Creatinine 2.96 H, Estim Creat Clear Calc 30.41, Est GFR (MDRD) Af Amer 28 L, Est GFR (MDRD) Non-Af 23 L, BUN/Creatinine Ratio 20.3 H, Glucose 204 H, Calcium 8.6 12/09/23 05:56: POC Glucose 163 H 12/09/23 07:55: Blood Type O POSITIVE, Antibody Screen NEGATIVE, Crossmatch See Detail 12/09/23 10:48: POC Glucose 172 H Micro: Microbiology 12/03/23 16:20 Sputum, Induced/Lukens Gram Stain - Final 12/03/23 16:20 Sputum, Induced/Lukens Respiratory Culture - Final Meth. resistant Staph. aureus Yeast, not Evy albicans 11/29/23 09:50 Blood Culture (Wb) - Right Hand Blood Culture - Final No growth in 5 days. 12/03/23 16:55 Stool Enteric Bacteriology - Final 12/03/23 16:55 Stool Clostridioides difficile (PCR) - Final 11/28/23 13:16 Blood Culture (Wb) - Left Hand Blood Culture - Final No growth in 5 days. 11/25/23 10:45 Blood Culture (Wb) - Anticubital Right Blood Culture - Final No growth in 5 days. 11/25/23 10:38 Blood Culture (Wb) - Anticubital Left Blood Culture - Final Meth. resistant Staph. aureus 11/25/23 11:45 Urine, Catheterized Urine Culture - Final Culture exhibits no growth. 11/26/23 11:26 Stool Clostridioides difficile (PCR) - Final 11/25/23 11:40 Mucosa - Nose SARS-CoV-2, Influenza & RSV (PCR) - Final Rhythm Strip Rhythm Strip: Sinus Tach Rate: 123 Ectopy: - (No pauses noted.) Physical Exam Narrative intubated no obvious distress s1s2 no murmurs lungs clear abdomen soft Trace edema bilateral lower legs ratliff + Assessment & Plan Assessment/Plan (1) JULIETTE (acute kidney injury): PLAN: - JULIETTE on possible CKD stage IIIb, JULIETTE is likely ATN due to sepsis. Serum creatinine 2.41 mg/dL on admission, improved to 1.81 on 11/25, creatinine peaked up to 3.61 on 12/05 and today creatinine is better. Likely recovering. Overall volume overloaded. Patient is on Lasix drip, renal function improving. Patient has good urine output/response on Lasix drip - CKD stage IIIb: Last creatinine prior to this admission was 1.5 from late last year. Most of the hospitalization his creatinine was around 1.8-1.9. Urine analysis shows protein, cells. When Ratliff catheter is out, we will repeat urine analysis Unlikely obstructive, patient has ratliff - MRSA bacteremia; no vegetation on TTE. ID following
[2023-12-09] MEDS: 0.9% Normal Saline (250mL Bag) 250 ML 10 ML IV (13:46)
--- NOTE | 2023-12-09 14:29 | PCM.PN.ID ---
Physical Exam Narrative No fever, on vent Const no apparent distress Resp normal air movement and clear to auscultation bilaterally Cardio regular rate and regular rhythm GI soft to palpation, non-tender and non-distended Skin no rashes or lesions noted ID ID: Route of nutrition/ use of supplements: [] Nutritional Intake: [] IV Site: [] Browning Catheter: [] Assessment & Plan Assessment/Plan (1) MRSA bacteremia: PLAN: suspected due to post-flu pneumonia. Cont vanc. No veg seen on TTE. Bcx cleared 11/27. Wbc cont to improve. Will follow (2) Sepsis:
--- NOTE | 2023-12-09 18:34 | PCM.PN.HOSP ---
Reason for Visit Reason for Visit: Diagnoses Sepsis, unspecified organism (11/25/23) Methicillin resistant Staphylococcus aureus infection as the cause of diseases classified elsewhere (11/25/23) Essential (primary) hypertension (11/25/23) Unspecified atrial fibrillation (11/25/23) Pneumonia, unspecified organism (11/25/23) Respiratory failure, unspecified, unspecified whether with hypoxia or hypercapnia (11/25/23) Acute kidney failure, unspecified (11/25/23) Bacteremia (11/25/23) Subjective Subjective Patient was seen and examined today, he remains sedated and on the ventilator at this time. Hemoglobin this morning was 6.9, blood transfusion was given to the patient today. Objective Data Objective Data Vital Signs: Vital Signs Temp Pulse Resp BP Pulse Ox O2 Del Method O2 Flow Rate 98.4 F 77 14 129/65 H 95 Mechanical Ventilator 40 12/09/23 18:00 12/09/23 18:00 12/09/23 18:00 12/09/23 18:00 12/09/23 18:00 12/09/23 18:00 12/07/23 06:00 FiO2 35 12/09/23 18:00 Oxygen Flow Rate (L/min) 40 Oxygen Delivery Method Mechanical Ventilator Weight: 104.9 kg Body Mass Index (BMI) 33.1 Intake & Output: Intake and Output for Last 24 Hours 12/07/23 12/08/23 12/09/23 23:59 23:59 23:59 Intake Total 1841.99 / 1861.69 2731.11 / 2856.51 2891.88 / 2891.88 Output Total 1100 / 1100 3050 / 3050 3150 / 3150 Balance 741.99 / 761.69 -318.89 / -193.49 -258.12 / -258.12 Medical Nutrition Assessment Dietitian: Malnutrition Criteria Met Start: 12/01/23 09:36 Freq: Status: Active Protocol: Document 12/07/23 11:28 RMA (Rec: 12/07/23 11:28 RMA [id number]) Nutrition Malnutrition Evidence of Malnutrition Exists Yes Malnutrition (severe): Acute Illness/Injury Evidenced By Suboptimal Energy Intake ( Severe),Weight Loss (Severe) Intake Problem Inadequate Oral Intake Etiology related to decreased ability to consume sufficient energy to meet estimated nutrient needs Signs/Symptoms as evidenced by extended NPO status x 9 days and intubation with need for enteral nutrition. Status Active Problem Clinical Problem Acute Disease or Injury Related Malnutrition Etiology severe, acute malnutrition related to inadequate energy intake d/t swallowing difficulties Signs/Symptoms as evidenced by unintentional 4% wt loss < 5 days, PO intake meeting <50% of estimated energy needs x 6 days Status Active Problem Recommendation Dietitian Recommendations/Changes NPO while intubated; Will continue EN via OGT with Vital AF 1.2 to goal rate of 60mL/ hour w/ 100mL H2O flush every 4 hours to provide 1728 calories, 108 g protein, and 1767mL total fluid/day. Will adjust enteral nutrition support and water flushes as needed. Lab / Micro Data 12/09/23 03:30 12/09/23 03:30 Labs: Laboratory Results - last 24 hr 12/08/23 21:14: POC Glucose 176 H 12/09/23 02:34: POC Glucose 158 H 12/09/23 03:30: WBC 12.3 H, RBC 2.56 L, Hgb 6.9 L, Hct 22.0 L, MCV 85.9, MCH 27.0, MCHC 31.4 L, RDW Std Deviation 53.8 H, RDW Coeff of Saman 21.7 H, Plt Count 178, Sodium 145, Potassium 4.4, Chloride 116 H, Carbon Dioxide 26.0, Anion Gap 3 L, BUN 60 H, Creatinine 2.96 H, Estim Creat Clear Calc 30.41, Est GFR (MDRD) Af Amer 28 L, Est GFR (MDRD) Non-Af 23 L, BUN/Creatinine Ratio 20.3 H, Glucose 204 H, Calcium 8.6 12/09/23 05:56: POC Glucose 163 H 12/09/23 07:55: Blood Type O POSITIVE, Antibody Screen NEGATIVE, Crossmatch See Detail 12/09/23 10:48: POC Glucose 172 H Micro: Microbiology 12/03/23 16:20 Sputum, Induced/Lukens Gram Stain - Final 12/03/23 16:20 Sputum, Induced/Lukens Respiratory Culture - Final Meth. resistant Staph. aureus Yeast, not Evy albicans 11/29/23 09:50 Blood Culture (Wb) - Right Hand Blood Culture - Final No growth in 5 days. 12/03/23 16:55 Stool Enteric Bacteriology - Final 12/03/23 16:55 Stool Clostridioides difficile (PCR) - Final 11/28/23 13:16 Blood Culture (Wb) - Left Hand Blood Culture - Final No growth in 5 days. 11/25/23 10:45 Blood Culture (Wb) - Anticubital Right Blood Culture - Final No growth in 5 days. 11/25/23 10:38 Blood Culture (Wb) - Anticubital Left Blood Culture - Final Meth. resistant Staph. aureus 11/25/23 11:45 Urine, Catheterized Urine Culture - Final Culture exhibits no growth. 11/26/23 11:26 Stool Clostridioides difficile (PCR) - Final 11/25/23 11:40 Mucosa - Nose SARS-CoV-2, Influenza & RSV (PCR) - Final Rhythm Strip Rhythm Strip: Sinus Tach Rate: 123 Ectopy: - (No pauses noted.) Physical Exam Const Constitutional Narrative: Patient is sedated and on the ventilator General Appearance: well developed HEENT normocephalic, head/scalp atraumatic and moist oral mucous membranes Eyes PERRL, EOMs intact bilaterally and conjunctivae normal Neck supple, no JVD, thyroid normal and no carotid bruits General: trachea midline Resp normal respiratory effort, no retractions, no use of accessory muscles and clear to auscultation bilaterally Auscultation: Negative for rales, rhonchi or wheezes Cardio regular rate, regular rhythm, S1 normal heart sound, S2 normal heart sound, no murmurs, no rub and no gallops GI normal to inspection, nondistended, normoactive bowel sounds and non-distended Extremity no clubbing, cyanosis or edema Skin no rashes or lesions noted General Skin Exam: no breakdown Neuro CN's II-XII intact bilaterally Neuro Narrative: Patient is sedated and on the ventilator Psych Psych Narrative: Patient is sedated and on the ventilator Assessment & Plan Assessment/Plan (1) Respiratory failure: PLAN: Plan 1. Sepsis secondary to MRSA bacteremia from pneumonia-patient remains on antimicrobials per ID #2 acute combined respiratory failure-critical care is participating in his care, patient remains on ventilator at this time #3 acute severe protein and caloric malnutrition related to inadequate energy intake due to swallowing difficulties as evidenced by unintentional 4% weight loss less than 5 days and p.o. intake less than 50% of estimated energy needs x 6 days-patient will continue enteral nutrition via tube feeds with vital AF 1.2 to a goal rate of 60 cc/h with 100 cc H2O flush every 4 hours to provide 1728-calorie, nutritional services is participating in the patient's care #4 acute kidney injury-patient is being seen by nephrology, he remains on a Lasix drip #5 schizophrenia, complicates care, management, recovery, and prognosis-patient was currently living in a [place] [facility] #6 essential hypertension-patient's blood pressure is currently under control on present medications Total clinical time spent by myself addressing the patient's medical issues, reviewing all of his data, and collaborating with patient's care team: 50 minutes Charges/Coding Visit Charges Inpatient E&M: 95912 Subs Hosp L3
[2023-12-09 18:41] LABS: Bedside Glucose 171 mg/dL (74-106)
[2023-12-09] MEDS: Furosemide 500 MG in Empty Viaflex 50 mL 1 EACH CONT INF (18:41)
[2023-12-09] MEDS: Valproic Acid 250 MG/5 ML UDC GT (22:15)
[2023-12-09] MEDS: traZODone 100 MG Tablet GT (22:15)
[2023-12-09] MEDS: Atorvastatin Calcium 80 MG Tablet GT (22:16)
[2023-12-09] MEDS: Vital AF 1.2 Cal Liquid 1,000 ML 60 ML GT (22:39)
[2023-12-09 23:01] LABS: Bedside Glucose 180 mg/dL (74-106)
[2023-12-10] VITALS (41 sets, daily range): BP systolic 101–185; BP diastolic 51–90; PULSE 61–113; RESP 15–32; TEMP 36.5–37.6; O2SAT 88–99; BMI 32.5
[2023-12-10] MEDS: Insulin Lispro 100 UNIT/ML INSULN.PEN SC (00:53)
[2023-12-10 01:15] LABS: Bedside Glucose 184 mg/dL (74-106)
[2023-12-10] MEDS: 0.9% Saline Lock 10 ML Syringe IV ×2 (05:11→05:22)
[2023-12-10] MEDS: Propofol 10MG/Ml 1,000 MG/100 ML Bottle 12.9 MG CONT INF ×3 (05:11→20:10)
[2023-12-10] MEDS: Vancomycin Trough/Random Due 1 LAB MC (05:21)
[2023-12-10] MEDS: Levothyroxine 50 MCG Tablet GT (05:22)
[2023-12-10] MEDS: Nystatin Powder 15gm Bottle 1 APPLIC TOPICAL ×3 (05:22→19:54)
[2023-12-10 05:25] LABS: Absolute Lymphocyte Count 1.88 X10^3/uL (0.83-4.51); Absolute Neutrophil Count 8.9 X10^3/uL (2.0-7.7); Basophil# 0.02 X10^3/uL; Basophil% 0.2 % (0-1); Eosinophil# 0.27 X10^3/uL; Eosinophils% 2.2 % (0-5); Hematocrit 21.8 % (40-54); Lymphocyte # 1.88 X10^3/ul (0.83-4.51); Lymphocyte % 15.3 % (19-41); Mean Corp Hgb Conc 32.1 g/dL (32-36); Mean Corpuscular Hgb 27.5 pg (27.0-32.0); Mean Corpuscular Volume 85.5 fL (80-94); Mean Platelet Vol. 12.9 fl (6.2-12.0); Monocyte# 1.14 X10^3/uL; Monocyte% 9.3 % (0-10); NRBC Flagged by Analyzer 0.2 % (0-5); Neutrophil # 8.89 X10^3/uL (2.7-7.7); Neutrophil % 72.3 % (47-70); POSITIVE MORPHOLOGY YES; Platelet Count 441 K/mm3 (150-450); RBC Distribution Width CV 21.7 % (11.6-14.6); Red Blood Count 2.55 M/mm3 (4.6-6.2); White Blood Count 12.3 K/mm3 (4.4-11.0)
[2023-12-10 05:49] LABS: Anion Gap 4 (5-15); BUN 59 mg/dL (7-18); BUN/Creat Ratio 21.2 RATIO (10-20); Calcium,Total 8.7 mg/dL (8.5-10.1); Chloride 113 mmol/L (98-107); Creatinine, Serum 2.78 mg/dL (0.70-1.30); EST Glomerular Filtration Rate 25 mL/min (>60); Est Glom Filt Rate - Afr Amer 30 mL/min (>60); Estimated Creatinine Clearance 31.83 ml/min; Glucose 161 mg/dL (74-106); Potassium 4.5 mmol/L (3.5-5.1); Sodium Level 145 mmol/L (136-145); Vancomycin, Random Level 18.3 ug/mL (0.0-15.0)
[2023-12-10 06:01] LABS: Differential Indicated SCAN CRITERIA MET
--- NOTE | 2023-12-10 06:04 | PCM.RX.CS ---
Consult Antibiotic Management Pharmacy has been consulted to manage selected antibiotic: Vancomycin Type of Intervention Type of Consult: Follow-up Suspected Infection Suspected Infection: Sepsis Labs Labs: Sodium 145 mmol/L (136-145) 12/10/23 05:15 Potassium 4.5 mmol/L (3.5-5.1) 12/10/23 05:15 Chloride 113 mmol/L (98-107) H 12/10/23 05:15 Carbon Dioxide 28.0 mmol/L (21.0-32.0) 12/10/23 05:15 Anion Gap 4 (5-15) L 12/10/23 05:15 BUN 59 mg/dL (7-18) H 12/10/23 05:15 Creatinine 2.78 mg/dL (0.70-1.30) H 12/10/23 05:15 Est GFR (MDRD) Af Amer 30 mL/min (>60) L 12/10/23 05:15 Est GFR (MDRD) Non-Af 25 mL/min (>60) L 12/10/23 05:15 BUN/Creatinine Ratio 21.2 RATIO (10-20) H 12/10/23 05:15 Glucose 161 mg/dL (74-106) H 12/10/23 05:15 Vancomycin Trough 23.2 ug/mL (5.0-15.0) H 12/07/23 06:38 Random Vancomycin 18.3 ug/mL (0.0-15.0) H 12/10/23 05:15 Microbiology Microbiology: Microbiology 12/03/23 16:20 Sputum, Induced/Lukens Gram Stain - Final 12/03/23 16:20 Sputum, Induced/Lukens Respiratory Culture - Final Meth. resistant Staph. aureus Yeast, not Evy albicans 11/29/23 09:50 Blood Culture (Wb) - Right Hand Blood Culture - Final No growth in 5 days. 12/03/23 16:55 Stool Enteric Bacteriology - Final 12/03/23 16:55 Stool Clostridioides difficile (PCR) - Final 11/28/23 13:16 Blood Culture (Wb) - Left Hand Blood Culture - Final No growth in 5 days. 11/25/23 10:45 Blood Culture (Wb) - Anticubital Right Blood Culture - Final No growth in 5 days. 11/25/23 10:38 Blood Culture (Wb) - Anticubital Left Blood Culture - Final Meth. resistant Staph. aureus 11/25/23 11:45 Urine, Catheterized Urine Culture - Final Culture exhibits no growth. 11/26/23 11:26 Stool Clostridioides difficile (PCR) - Final 11/25/23 11:40 Mucosa - Nose SARS-CoV-2, Influenza & RSV (PCR) - Final Dosing Weight Weight used for dosin.9 kg Estimated Creatinine Clearance Estimated Creatinine Clearance: 32 Goal Trough Goal Trough: 15-20 mcg/mL Pharmacy Plan for Drug Dosing Pharmacy Plan for Drug Dosing: Random vancomycin level was 18.3, within the target range of 15-20. This was 36.5hrs since the previous single dose of 750mg. Dosing off levels is working well, so a single 500mg dose will be given today. Another random level will be drawn with morning labs 12/12/23. Pharmacy Service will continue to monitor and adjust dosing as required. Follow-Up Labs Follow-Up Labs: Trough: Vancomycin (random) Date/Time Labs Ordered Labs to be done on [date and time ordered]: 12/12/23 @0600
[2023-12-10 06:25] LABS: Bedside Glucose 136 mg/dL (74-106)
[2023-12-10] MEDS: fentaNYL drip 100 ML 15 MCG CONT INF ×3 (06:37→23:15)
[2023-12-10 07:28] LABS: Anisocytosis 4+; Differential Comment SCANNED
[2023-12-10 07:29] LABS: Schistocytes 2+
[2023-12-10] MEDS: Vancomycin IV 500 MG/100 ML BAG 100 MG IV (08:52)
[2023-12-10] MEDS: CHLORHEXIDINE GLUC 2% CLOTH 1 EACH TOWELETTE TOPICAL (08:52)
[2023-12-10] MEDS: Aspirin 81 MG TAB.CHEW GT (08:53)
[2023-12-10] MEDS: Menthol/Lanolin/Calamine/Znox 113 GM Tube 1 APPLIC TOPICAL ×2 (08:53→19:54)
[2023-12-10] MEDS: QUEtiapine 25 MG Tablet 50 MG GT ×2 (08:53→19:54)
[2023-12-10] MEDS: Valproic Acid 250 MG/5 ML UDC 500 MG GT ×2 (08:54→19:53)
[2023-12-10] MEDS: Heparin Injection (Vial) 5,000 UNIT/ML VIAL 5000 UNIT SC ×2 (08:54→19:54)
[2023-12-10] MEDS: MEDROXYPROGESTERONE ACETATE 10 MG TABLET GT ×2 (08:55→19:54)
[2023-12-10] MEDS: Chlorhexidine 15 ML PO ×2 (08:56→19:54)
[2023-12-10] MEDS: Pantoprazole Sodium 40 MG in 0.9% Normal Saline (100mL MB+) 100 ML 330 MG IV (10:27)
--- NOTE | 2023-12-10 11:01 | PN.HOSP_ITS ---
Reason for Visit Reason for Visit: Diagnoses Sepsis, unspecified organism (11/25/23) Methicillin resistant Staphylococcus aureus infection as the cause of diseases classified elsewhere (11/25/23) Essential (primary) hypertension (11/25/23) Unspecified atrial fibrillation (11/25/23) Pneumonia, unspecified organism (11/25/23) Respiratory failure, unspecified, unspecified whether with hypoxia or hypercapnia (11/25/23) Acute kidney failure, unspecified (11/25/23) Bacteremia (11/25/23) Subjective Subjective Patient was seen and examined, he remains on the ventilator under sedation at this time. Patient's hemoglobin today was 7, I elected to transfuse 1 unit of packed red blood cells, it appears that he got 1 unit yesterday but it did not significantly affect his hemoglobin. Objective Data Objective Data Vital Signs: Vital Signs Temp Pulse Resp BP Pulse Ox O2 Del Method O2 Flow Rate 97.7 F L 113 H 31 H 185/90 H 89 Mechanical Ventilator 40 12/10/23 08:00 12/10/23 10:30 12/10/23 10:30 12/10/23 10:00 12/10/23 10:30 12/10/23 10:00 12/07/23 06:00 FiO2 50 12/10/23 10:56 Oxygen Flow Rate (L/min) 40 Oxygen Delivery Method Mechanical Ventilator Weight: 102.9 kg Body Mass Index (BMI) 32.5 Intake & Output: Intake and Output for Last 24 Hours 12/08/23 12/09/23 12/10/23 23:59 23:59 23:59 Intake Total 2731.11 / 2856.51 3306.68 / 3378.08 1215.03 / 1215.03 Output Total 3050 / 3050 3150 / 4050 2250 / 2250 Balance -318.89 / -193.49 156.68 / -671.92 -1034.97 / -1034.97 Medical Nutrition Assessment Dietitian: Malnutrition Criteria Met Start: 12/01/23 09:36 Freq: Status: Active Protocol: Document 12/07/23 11:28 RMA (Rec: 12/07/23 11:28 RMA [id number]) Nutrition Malnutrition Evidence of Malnutrition Exists Yes Malnutrition (severe): Acute Illness/Injury Evidenced By Suboptimal Energy Intake ( Severe),Weight Loss (Severe) Intake Problem Inadequate Oral Intake Etiology related to decreased ability to consume sufficient energy to meet estimated nutrient needs Signs/Symptoms as evidenced by extended NPO status x 9 days and intubation with need for enteral nutrition. Status Active Problem Clinical Problem Acute Disease or Injury Related Malnutrition Etiology severe, acute malnutrition related to inadequate energy intake d/t swallowing difficulties Signs/Symptoms as evidenced by unintentional 4% wt loss < 5 days, PO intake meeting <50% of estimated energy needs x 6 days Status Active Problem Recommendation Dietitian Recommendations/Changes NPO while intubated; Will continue EN via OGT with Vital AF 1.2 to goal rate of 60mL/ hour w/ 100mL H2O flush every 4 hours to provide 1728 calories, 108 g protein, and 1767mL total fluid/day. Will adjust enteral nutrition support and water flushes as needed. Lab / Micro Data 12/10/23 05:15 12/10/23 05:15 Labs: Laboratory Results - last 24 hr 12/09/23 07:55: Antibody Screen NEGATIVE, Crossmatch See Detail 12/09/23 10:48: POC Glucose 172 H 12/09/23 18:20: POC Glucose 171 H 12/09/23 22:21: POC Glucose 180 H 12/10/23 00:52: POC Glucose 184 H 12/10/23 05:15: WBC 12.3 H, RBC 2.55 L, Hgb 7.0 L, Hct 21.8 L, MCV 85.5, MCH 27.5, MCHC 32.1, RDW Std Deviation 53.0 H, RDW Coeff of Saman 21.7 H, Plt Count 441, MPV 12.9 H, Immature Gran % (Auto) 0.700, Neut % (Auto) 72.3 H, Lymph % (Auto) 15.3 L, [place] % (Auto) 9.3, Eos % (Auto) 2.2, Baso % (Auto) 0.2, Absolute Neuts (auto) 8.9 H, Absolute Lymphs (auto) 1.88, Nucleated RBC % 0.2, Differential Comment SCANNED, Diff Path Review May foll, Anisocytosis 4+, Schistocytes 2+ H, Sodium 145, Potassium 4.5, Chloride 113 H, Carbon Dioxide 28.0, Anion Gap 4 L, BUN 59 H, Creatinine 2.78 H, Estim Creat Clear Calc 31.83, Est GFR (MDRD) Af Amer 30 L, Est GFR (MDRD) Non-Af 25 L, BUN/Creatinine Ratio 21.2 H, Glucose 161 H, Calcium 8.7, Random Vancomycin 18.3 H 12/10/23 05:24: POC Glucose 136 H Micro: Microbiology 12/03/23 16:20 Sputum, Induced/Lukens Gram Stain - Final 12/03/23 16:20 Sputum, Induced/Lukens Respiratory Culture - Final Meth. resistant Staph. aureus Yeast, not Evy albicans 11/29/23 09:50 Blood Culture (Wb) - Right Hand Blood Culture - Final No growth in 5 days. 12/03/23 16:55 Stool Enteric Bacteriology - Final 12/03/23 16:55 Stool Clostridioides difficile (PCR) - Final 11/28/23 13:16 Blood Culture (Wb) - Left Hand Blood Culture - Final No growth in 5 days. 11/25/23 10:45 Blood Culture (Wb) - Anticubital Right Blood Culture - Final No growth in 5 days. 11/25/23 10:38 Blood Culture (Wb) - Anticubital Left Blood Culture - Final Meth. resistant Staph. aureus 11/25/23 11:45 Urine, Catheterized Urine Culture - Final Culture exhibits no growth. 11/26/23 11:26 Stool Clostridioides difficile (PCR) - Final 11/25/23 11:40 Mucosa - Nose SARS-CoV-2, Influenza & RSV (PCR) - Final Rhythm Strip Rhythm Strip: Sinus Tach Rate: 123 Ectopy: - (No pauses noted.) Physical Exam Narrative Constitutional Narrative: Patient is sedated and on the ventilator General Appearance: well developed HEENT normocephalic, head/scalp atraumatic and moist oral mucous membranes Eyes PERRL, EOMs intact bilaterally and conjunctivae normal Neck supple, no JVD, thyroid normal and no carotid bruits General: trachea midline Resp normal respiratory effort, no retractions, no use of accessory muscles and clear to auscultation bilaterally Auscultation: Negative for rales, rhonchi or wheezes Cardio regular rate, regular rhythm, S1 normal heart sound, S2 normal heart sound, no murmurs, no rub and no gallops GI normal to inspection, nondistended, normoactive bowel sounds and non-distended Extremity no clubbing, cyanosis or edema Skin no rashes or lesions noted General Skin Exam: no breakdown Neuro CN's II-XII intact bilaterally Neuro Narrative: Patient is sedated and on the ventilator Psych Psych Narrative: Patient is sedated and on the ventilator Assessment & Plan Assessment/Plan (1) Respiratory failure: PLAN: Plan 1. Sepsis secondary to MRSA bacteremia from pneumonia-patient remains on antimicrobials per ID #2 acute combined respiratory failure-critical care is participating in his care, patient remains on ventilator at this time #3 acute severe protein and caloric malnutrition related to inadequate energy intake due to swallowing difficulties as evidenced by unintentional 4% weight loss less than 5 days and p.o. intake less than 50% of estimated energy needs x 6 days-patient will continue enteral nutrition via tube feeds with vital AF 1.2 to a goal rate of 60 cc/h with 100 cc H2O flush every 4 hours to provide 1728- calorie, nutritional services is participating in the patient's care #4 acute kidney injury-patient is being seen by nephrology, he remains on a Lasix drip #5 schizophrenia, complicates care, management, recovery, and prognosis-patient was currently living in a custodial #6 essential hypertension-patient's blood pressure is currently under control on present medications #7 acute anemia-etiology unclear at this point, I have elected to transfuse 1 unit of packed red blood cells, CBC will be rechecked tomorrow Total clinical time spent by myself addressing the patient's medical issues, reviewing all of his data, and collaborating with patient's care team: 35 minutes Charges/Coding Visit Charges Inpatient E&M: 69989 Subs Hosp L2
--- NOTE | 2023-12-10 11:17 | PCM.PN.TICU ---
Objective Data Objective Data Vital Signs: Vital Signs Last response Temperature 36.5 C L 12/10/23 08:00 Temperature Source Core 12/10/23 08:00 Pulse Rate 102 H 12/10/23 11:00 Pulse Strength Weak (1+) 12/07/23 09:00 Respiratory Rate 16 12/10/23 11:00 Respiratory Effort Mechanically Ventilated 12/10/23 08:00 Respiratory Depth Normal 12/10/23 08:00 Respiratory Pattern Normal 12/10/23 08:00 Blood Pressure 142/69 H 12/10/23 11:00 Blood Pressure Mean 93 12/10/23 11:00 Blood Pressure Source Monitor 12/10/23 11:00 Blood Pressure Position Semi-Fowlers 12/10/23 11:00 Blood Pressure Location Right Arm 12/10/23 11:00 Pulse Ox 94 12/10/23 11:00 Oxygen Delivery Method Mechanical Ventilator 12/10/23 11:00 Oxygen Flow Rate (L/min) 40 12/07/23 06:00 Fraction of Inspired Oxygen (FIO2) 50 12/10/23 11:00 I&O: I&O Last 24 Hours 12/09/23 12/09/23 12/10/23 11:59 23:59 11:59 Intake Total 1709.60 / 3378.08 1597.08 / 3378.08 1215.03 / 1215.03 Output Total 1925 / 4050 1225 / 4050 2250 / 2250 Balance -215.40 / -671.92 372.08 / -671.92 -1034.97 / -1034.97 I&O: Total Stay 11/25/23 10:09 thru 12/10/23 10:56 Intake Total 41174.34 Output Total 66153 Balance .34 Current Meds Ordered / Administered: Current meds ordered / Administered Generic Name Dose Route Start Last Admin Trade Name Freq PRN Reason Stop Dose Admin Acetaminophen 650 mg 12/04/23 11:44 Acetaminophen 650 Mg/20 Ml Udc PO Q4H PRN fever or pain 1-06/21 Albuterol Sulfate 2.5 mg 12/06/23 01:07 12/06/23 01:32 Albuterol 2.5 Mg/3 Ml Vial.Neb. INHALATION 2.5 mg Q2H PRN PRN Administration WHEEZING Aspirin 81 mg 12/07/23 08:30 12/10/23 08:53 Aspirin 81 Mg Tab.Chew GT 81 mg DAILYCM WILLIAM Administration Atorvastatin Calcium 80 mg 12/04/23 22:00 12/09/23 22:16 Atorvastatin Calcium 80 Mg Tablet GT 80 mg QHS WILLIAM Administration Atropine Sulfate 1 mg 11/30/23 21:50 12/02/23 21:43 Atropine Sulfate 1 Mg/10 Ml Syringe IV 1 mg PRN PRN Administration HR< 40bpm, unstable VS/symptom Calamine/Phenol 1 applic 12/07/23 22:00 12/10/23 08:53 Menthol/Lanolin/Calamine/Znox 113 Gm Tube TOPICAL 1 applic BID WILLIAM Administration Protocol Chlorhexidine Gluconate 15 ml 12/03/23 22:00 12/10/23 08:56 Chlorhexidine 15 Ml PO 15 ml BID WILLIAM Administration Chlorhexidine Gluconate 1 each 12/05/23 10:00 12/10/23 08:52 Chlorhexidine Gluc 2% Cloth 1 Each Towelette TOPICAL 1 each DAILY WILLIAM Administration Dextrose 0 gm 11/25/23 15:29 Dextrose 50%-Water 25 Gm/50 Ml Disp.Syrin IV X1 PRN HYPOGLYCEMIA Protocol Ferrous Sulfate 300 mg 12/08/23 12:00 12/09/23 11:32 Ferrous Sulfate 300 Mg/5 Ml Udc GT 300 mg LUNCH WILLIAM Administration Glucagon 1 mg 11/25/23 15:29 Glucagon 1 Mg/Ml Syringe IM X1 PRN HYPOGLYCEMIA Heparin Sodium (Porcine) 5,000 unit 11/25/23 22:00 12/10/23 08:54 Heparin Injection (Vial) 5,000 Unit/Ml Vial SC 5,000 unit Q12 WILLIAM Administration Sodium Chloride 250 mls @ 15 mls/hr 11/25/23 15:45 12/09/23 20:30 IV 0 mls/hr .[id number] PRN Infusion Additional IVPB Infusion Sodium Chloride 250 mls @ 15 mls/hr 11/25/23 15:45 12/09/23 10:07 IV Infused .[id number] PRN Infusion Saline Flush Vancomycin IV-PHARMACY TO DOSE 500 mls @ 250 mls/hr 11/27/23 07:55 1 each/ Sodium Chloride IV PRN PRN Rx to Dose Protocol Pantoprazole Sodium 40 mg/ 110 mls @ 330 mls/hr 12/04/23 10:00 12/10/23 10:56 Sodium Chloride IV Infused Q24 WILLIAM Infusion Fentanyl 100 mls @ 2.5 mls/hr 12/03/23 16:30 12/10/23 10:30 CONT INF 100 mcg/hr UD WILLIAM 10 mls/hr Titration Protocol 25 MCG/HR Enteral Nutritional Formula 1,000 mls @ 60 mls/hr 12/05/23 11:05 12/10/23 10:30 Vital Af 1.2 Carloz Liquid GT 60 mls/hr .[id number] WILLIAM Infusion Propofol 1,000 mg in 100 mls @ 6.438 mls/hr 12/06/23 06:55 12/10/23 10:45 Diprivan CONT INF 20 mcg/kg/min .Q12H WILLIAM 12.9 mls/hr Titration Protocol 10 MCG/KG/MIN Furosemide 500 mg/ N/A 50 mls @ 1.5 mls/hr 12/08/23 08:00 12/09/23 18:41 CONT INF 15 mg/hr .[id number] WILLIAM 1.5 mls/hr Administration 15 MG/HR Insulin Glargine 30 unit 12/06/23 10:00 12/09/23 22:26 Insulin Glargine-Yfgn 100 Unit/Ml Pen SC 30 unit BID WILLIAM Administration Insulin Human Lispro 0 unit 12/09/23 12:00 12/10/23 05:26 Insulin Lispro 100 Unit/Ml Insuln.Pen SC Not Given Q6 [facility] Protocol Levothyroxine Sodium 50 mcg 12/05/23 06:00 12/10/23 05:22 Levothyroxine 50 Mcg Tablet GT 50 mcg DAILY@0600 WILLIAM Administration Medroxyprogesterone Acetate 10 mg 12/04/23 22:00 12/10/23 08:55 Medroxyprogesterone Acetate 10 Mg Tablet GT 10 mg BID WILLIAM Administration Nystatin 1 applic 12/08/23 14:00 12/10/23 05:22 Nystatin Powder 15gm Bottle TOPICAL 1 applic TID WILLIAM Administration Protocol Polyethylene Glycol 17 gm 12/08/23 10:00 12/10/23 08:41 Polyethylene Glycol 3350 17 Gm Packet GT Not Given DAILY WILLIAM Quetiapine Fumarate 50 mg 12/09/23 10:00 12/10/23 08:53 Quetiapine 25 Mg Tablet GT 50 mg BID WILLIAM Administration Protocol Senna/Docusate Sodium 2 tablet 12/05/23 10:00 12/10/23 08:42 Senna/Docusate Sodium 1 Tablet GT Not Given BID WILLIAM Sodium Chloride 10 - 40 ml 11/25/23 15:45 12/10/23 05:22 0.9% Saline Lock 10 Ml Syringe IV 10 ml UD PRN Administration SALINE FLUSH Trazodone HCl 100 mg 12/04/23 22:00 12/09/23 22:15 Trazodone 100 Mg Tablet GT 100 mg QHS WILLIAM Administration Valproic Acid 500 mg 12/06/23 22:00 12/10/23 08:54 Valproic Acid 250 Mg/5 Ml Udc GT 500 mg BID WILLIAM Administration Valproic Acid 250 mg 12/06/23 22:00 12/09/23 22:15 Valproic Acid 250 Mg/5 Ml Udc GT 250 mg QHS WILLIAM Administration Vancomycin Protocol 1 lab 12/12/23 04:00 Vancomycin Trough/Random Due MC 12/12/23 08:00 DAILY [facility] Medical Records Data Medical Nutrition Assessment Dietitian: Malnutrition Criteria Met Start: 12/01/23 09:36 Freq: Status: Active Protocol: Document 12/07/23 11:28 RMA (Rec: 12/07/23 11:28 RMA [id number]) Nutrition Malnutrition Evidence of Malnutrition Exists Yes Malnutrition (severe): Acute Illness/Injury Evidenced By Suboptimal Energy Intake ( Severe),Weight Loss (Severe) Intake Problem Inadequate Oral Intake Etiology related to decreased ability to consume sufficient energy to meet estimated nutrient needs Signs/Symptoms as evidenced by extended NPO status x 9 days and intubation with need for enteral nutrition. Status Active Problem Clinical Problem Acute Disease or Injury Related Malnutrition Etiology severe, acute malnutrition related to inadequate energy intake d/t swallowing difficulties Signs/Symptoms as evidenced by unintentional 4% wt loss < 5 days, PO intake meeting <50% of estimated energy needs x 6 days Status Active Problem Recommendation Dietitian Recommendations/Changes NPO while intubated; Will continue EN via OGT with Vital AF 1.2 to goal rate of 60mL/ hour w/ 100mL H2O flush every 4 hours to provide 1728 calories, 108 g protein, and 1767mL total fluid/day. Will adjust enteral nutrition support and water flushes as needed. Lab / Micro Data 12/10/23 05:15 12/10/23 05:15 Labs: Laboratory Results - last 24 hr 12/09/23 07:55: Antibody Screen NEGATIVE, Crossmatch See Detail 12/09/23 18:20: POC Glucose 171 H 12/09/23 22:21: POC Glucose 180 H 12/10/23 00:52: POC Glucose 184 H 12/10/23 05:15: WBC 12.3 H, RBC 2.55 L, Hgb 7.0 L, Hct 21.8 L, MCV 85.5, MCH 27.5, MCHC 32.1, RDW Std Deviation 53.0 H, RDW Coeff of Saman 21.7 H, Plt Count 441, MPV 12.9 H, Immature Gran % (Auto) 0.700, Neut % (Auto) 72.3 H, Lymph % (Auto) 15.3 L, [place] % (Auto) 9.3, Eos % (Auto) 2.2, Baso % (Auto) 0.2, Absolute Neuts (auto) 8.9 H, Absolute Lymphs (auto) 1.88, Nucleated RBC % 0.2, Differential Comment SCANNED, Diff Path Review May foll, Anisocytosis 4+, Schistocytes 2+ H, Sodium 145, Potassium 4.5, Chloride 113 H, Carbon Dioxide 28.0, Anion Gap 4 L, BUN 59 H, Creatinine 2.78 H, Estim Creat Clear Calc 31.83, Est GFR (MDRD) Af Amer 30 L, Est GFR (MDRD) Non-Af 25 L, BUN/Creatinine Ratio 21.2 H, Glucose 161 H, Calcium 8.7, Random Vancomycin 18.3 H 12/10/23 05:24: POC Glucose 136 H Rhythm Strip Rhythm Strip: Sinus Tach Rate: 123 Ectopy: - (No pauses noted.) Assessment and Plan . Assessment and plan: Patient seen and examined Chart and data reviewed He is sedated I am told that he did poorly w/ SAT/SBT I/O (-) w/ furosemide, but net remains (+) PIP 30, MV 8-9 LPM, O2 0.5 No new ABG or pCXR EXAM GEN sedated VS as above HEENT NENA NECK supple COR RRR CHEST coarse ABD soft EXT pirring edema SKIN w/d AUBREE NF, sedated ASSESSMENT 1. Acute respiratory failure requiring MV support 2. Prolonged MV support 3. Presumed bacterial PNA 4. Hypervolemia 5. Renal insufficiency 6. CAD / ASCVD / chronic AF 7. H/O psychiatric illness 8. Anemia TREATMENT PLAN -MV support -sedation as needed -ABG and pCXR in am -enteral nutrition -loop diuretics -ABX -VTE ppx Critical Care Time: 50 min The entirety of this encounter was done via Telemedicine
[2023-12-10] MEDS: Insulin Glargine-YFGN 100 UNIT/ML Pen 30 UNIT SC ×2 (11:21→23:05)
[2023-12-10] MEDS: Ferrous Sulfate 300 MG/5 ML UDC GT (11:21)
[2023-12-10 11:43] LABS: Bedside Glucose 112 mg/dL (74-106)
[2023-12-10] MEDS: Vital AF 1.2 Cal Liquid 1,000 ML 60 ML GT (16:30)
[2023-12-10] MEDS: Furosemide 500 MG in Empty Viaflex 50 mL 1 EACH CONT INF (18:09)
[2023-12-10 18:29] LABS: Bedside Glucose 109 mg/dL (74-106)
[2023-12-10] MEDS: traZODone 100 MG Tablet GT (19:54)
[2023-12-10] MEDS: Valproic Acid 250 MG/5 ML UDC GT (19:54)
[2023-12-10] MEDS: Atorvastatin Calcium 80 MG Tablet GT (19:54)
[2023-12-11] VITALS (37 sets, daily range): BP systolic 90–205; BP diastolic 53–103; PULSE 3–138; RESP 14–89; TEMP 36.2–37.1; O2SAT 89–99; BMI 31.7
[2023-12-11 03:27] LABS: Bedside Glucose 112 mg/dL (74-106)
[2023-12-11] MEDS: Propofol 10MG/Ml 1,000 MG/100 ML Bottle 12.9 MG CONT INF ×4 (03:34→23:09)
[2023-12-11] MEDS: 0.9% Saline Lock 10 ML Syringe IV (03:34)
[2023-12-11 03:40] LABS: Absolute Neutrophil Count 7.2 X10^3/uL (2.0-7.7); Basophil# 0.03 X10^3/uL; Basophil% 0.3 % (0-1); Eosinophil# 0.27 X10^3/uL; Eosinophils% 2.6 % (0-5); Hematocrit 24.5 % (40-54); Hemoglobin 7.8 g/dL (13.0-16.5); Lymphocyte % 17.2 % (19-41); Mean Corp Hgb Conc 31.8 g/dL (32-36); Mean Corpuscular Hgb 26.9 pg (27.0-32.0); Mean Corpuscular Volume 84.5 fL (80-94); Mean Platelet Vol. 12.3 fl (6.2-12.0); Monocyte# 1.06 X10^3/uL; Monocyte% 10.1 % (0-10); NRBC Flagged by Analyzer 0.2 % (0-5); Neutrophil # 7.18 X10^3/uL (2.7-7.7); Neutrophil % 68.7 % (47-70); POSITIVE MORPHOLOGY YES; Platelet Count 573 K/mm3 (150-450); RBC Distribution Width SD 52.7 fl (35.1-43.9); White Blood Count 10.5 K/mm3 (4.4-11.0)
[2023-12-11 03:53] LABS: Differential Indicated SCAN CRITERIA MET
[2023-12-11 04:07] LABS: ALB/GLOB Ratio 0.2 RATIO (0.9-2.4); AST(SGOT) 29 U/L (15-37); Alanine Aminotransfer ALT/SGPT 23 U/L (16-61); Albumin, Serum 1.3 g/dL (3.2-5.0); Alkaline Phosphatase 91 U/L (45-117); Anion Gap 6 (5-15); BUN 55 mg/dL (7-18); BUN/Creat Ratio 20.8 RATIO (10-20); Calcium,Total 8.8 mg/dL (8.5-10.1); Chloride 111 mmol/L (98-107); Creatinine, Serum 2.64 mg/dL (0.70-1.30); EST Glomerular Filtration Rate 26 mL/min (>60); Est Glom Filt Rate - Afr Amer 31 mL/min (>60); Estimated Creatinine Clearance 33.52 ml/min; Globulin 5.5 g/dL (2.2-4.2); Glucose 118 mg/dL (74-106); Potassium 3.9 mmol/L (3.5-5.1); Protein, Total 6.8 g/dL (6.4-8.2); Sodium Level 146 mmol/L (136-145)
[2023-12-11] MEDS: Nystatin Powder 15gm Bottle 1 APPLIC TOPICAL ×3 (04:56→20:59)
[2023-12-11] MEDS: Levothyroxine 50 MCG Tablet GT (04:56)
[2023-12-11 05:19] LABS: Anisocytosis 2+
[2023-12-11 05:21] LABS: Bedside Glucose 117 mg/dL (74-106)
[2023-12-11 05:31] LABS: Allen Test Positive; Base Excess 5 mmol/L (-2 to +2); Bicarbonate 28.9 mmol/L (22-26); Blood Gas Specimen Type ART; Mode AC; O2 Delivery Device Adult Vent; PEEP 5; PO2 69 mmHG (75-100); RR 16; SITE L Radial; SO2 94 % (95-99); Total Carbon Dioxide 30 mmol/L; pH 7.44 (7.35-7.45)
--- NOTE | 2023-12-11 05:50 | RAD_ITS ---
EXAM: XR CHEST, 1 VIEW CLINICAL INDICATION: arf TECHNIQUE: Frontal view of the chest. COMPARISON: 12.07.23 FINDINGS: LUNGS AND PLEURAL SPACES: Small right pleural effusion. Left pleural effusion. Left infiltrate. No pneumothorax. HEART: Unremarkable. Cardiac silhouette not enlarged. MEDIASTINUM: Central airways and mediastinal contour are unremarkable. BONES/JOINTS: Unremarkable. No acute fracture. SOFT TISSUES: Unremarkable. TUBES, LINES AND DEVICES: ET tube and NG tube remain in place. RAD/Chest 1 View (Portable) IMPRESSION: Findings are unchanged. Electronically Signed: Sacha Nieves MD at 16:52 EDT ,
[2023-12-11] MEDS: CHLORHEXIDINE GLUC 2% CLOTH 1 EACH TOWELETTE TOPICAL ×2 (06:00→08:41)
[2023-12-11] MEDS: fentaNYL drip 100 ML 15 MCG CONT INF ×2 (07:15→21:36)
--- NOTE | 2023-12-11 07:37 | PN.HOSP_ITS ---
Reason for Visit Reason for Visit: Diagnoses Sepsis, unspecified organism (11/25/23) Methicillin resistant Staphylococcus aureus infection as the cause of diseases classified elsewhere (11/25/23) Essential (primary) hypertension (11/25/23) Unspecified atrial fibrillation (11/25/23) Pneumonia, unspecified organism (11/25/23) Respiratory failure, unspecified, unspecified whether with hypoxia or hypercapnia (11/25/23) Acute kidney failure, unspecified (11/25/23) Bacteremia (11/25/23) Subjective Subjective Patient was seen and examined this morning, he remains sedated and on the ventilator, patient had an episode of coughing today which resulted and the patient going into junctional rhythm and then asystole, a CODE BLUE was called and chest compressions were started, he then went back into a sinus rhythm and had a pulse, CPR was briefly stopped and then he went junctional again and asystole and CPR was resumed. 1 mg atropine was given which resulted in tachycardia with a pulse. Patient's vitals were stable CPR was stopped. I talked to the patient's brother this morning by phone who is his legal guardian, he stated that his siblings wanted full measures but he questions whether that is the best thing to do for the patient and he will have a talk with his siblings today to see if they want to change the patient's CODE STATUS. Objective Data Objective Data Vital Signs: Vital Signs Temp Pulse Resp BP Pulse Ox O2 Del Method O2 Flow Rate 98.3 F 69 16 102/56 L 94 Mechanical Ventilator 40 12/11/23 07:00 12/11/23 07:00 12/11/23 07:00 12/11/23 07:00 12/11/23 07:00 12/11/23 07:00 12/07/23 06:00 FiO2 35 12/11/23 07:00 Oxygen Flow Rate (L/min) 40 Oxygen Delivery Method Mechanical Ventilator Weight: 100.6 kg Body Mass Index (BMI) 31.7 Intake & Output: Intake and Output for Last 24 Hours 12/09/23 12/10/23 12/11/23 23:59 23:59 23:59 Intake Total 3306.68 / 3378.08 2150.82 / 2174.97 246.95 / 246.95 Output Total 3150 / 4050 5500 / 5500 1000 / 1000 Balance 156.68 / -671.92 -3349.18 / -3325.03 -753.05 / -753.05 Medical Nutrition Assessment Dietitian: Malnutrition Criteria Met Start: 12/01/23 0 9:36 Freq: Status: Active Protocol: Document 12/07/23 11:28 RMA (Rec: 12/07/23 11:28 RMA [id number]) Nutrition Malnutrition Evidence of Malnutrition Exists Yes Malnutrition (severe): Acute Illness/Injury Evidenced By Suboptimal Energy Intake ( Severe),Weight Loss (Severe) Intake Problem Inadequate Oral Intake Etiology related to decreased ability to consume sufficient energy to meet estimated nutrient needs Signs/Symptoms as evidenced by extended NPO status x 9 days and intubation with need for enteral nutrition. Status Active Problem Clinical Problem Acute Disease or Injury Related Malnutrition Etiology severe, acute malnutrition related to inadequate energy intake d/t swallowing difficulties Signs/Symptoms as evidenced by unintentional 4% wt loss < 5 days, PO intake meeting <50% of estimated energy needs x 6 days Status Active Problem Recommendation Dietitian Recommendations/Changes NPO while intubated; Will continue EN via OGT with Vital AF 1.2 to goal rate of 60mL/ hour w/ 100mL H2O flush every 4 hours to provide 1728 calories, 108 g protein, and 1767mL total fluid/day. Will adjust enteral nutrition support and water flushes as needed. Lab / Micro Data 12/11/23 03:30 12/11/23 03:30 Labs: Laboratory Results - last 24 hr 12/09/23 07:55: Crossmatch See Detail 12/10/23 11:20: POC Glucose 112 H 12/10/23 18:06: POC Glucose 109 H 12/10/23 23:04: POC Glucose 112 H 12/11/23 03:30: WBC 10.5, RBC 2.90 L, Hgb 7.8 L, Hct 24.5 L, MCV 84.5, MCH 26.9 L, MCHC 31.8 L, RDW Std Deviation 52.7 H, RDW Coeff of Saman 22.0 H, Plt Count 573 H, MPV 12.3 H, Immature Gran % (Auto) 1.100 H, Neut % (Auto) 68.7, Lymph % (Auto) 17.2 L, [place] % (Auto) 10.1 H, Eos % (Auto) 2.6, Baso % (Auto) 0.3, Absolute Neuts (auto) 7.2, Absolute Lymphs (auto) 1.80, Nucleated RBC % 0.2, Anisocytosis 2+, Sodium 146 H, Potassium 3.9, Chloride 111 H, Carbon Dioxide 29.0, Anion Gap 6, BUN 55 H, Creatinine 2.64 H, Estim Creat Clear Calc 33.52, Est GFR (MDRD) Af Amer 31 L, Est GFR (MDRD) Non-Af 26 L, BUN/Creatinine Ratio 20.8 H, Glucose 118 H, Calcium 8.8, Total Bilirubin 0.30, AST 29, ALT 23, Alkaline Phosphatase 91, Total Protein 6.8, Albumin 1.3 L, Globulin 5.5 H, Albumin/Globulin Ratio 0.2 L 12/11/23 05:03: POC Glucose 117 H Micro: Microbiology 12/03/23 16:20 Sputum, Induced/Lukens Gram Stain - Final 12/03/23 16:20 Sputum, Induced/Lukens Respiratory Culture - Final Meth. resistant Staph. aureus Yeast, not Evy albicans 11/29/23 09:50 Blood Culture (Wb) - Right Hand Blood Culture - Final No growth in 5 days. 12/03/23 16:55 Stool Enteric Bacteriology - Final 12/03/23 16:55 Stool Clostridioides difficile (PCR) - Final 11/28/23 13:16 Blood Culture (Wb) - Left Hand Blood Culture - Final No growth in 5 days. 11/25/23 10:45 Blood Culture (Wb) - Anticubital Right Blood Culture - Final No growth in 5 days. 11/25/23 10:38 Blood Culture (Wb) - Anticubital Left Blood Culture - Final Meth. resistant Staph. aureus 11/25/23 11:45 Urine, Catheterized Urine Culture - Final Culture exhibits no growth. 11/26/23 11:26 Stool Clostridioides difficile (PCR) - Final 11/25/23 11:40 Mucosa - Nose SARS-CoV-2, Influenza & RSV (PCR) - Final ABG Data ABG results: ABG 12/11/23 05:26 Specimen Type ART Sample Site L Radial pH 7.44 Bicarbonate Actual 28.9 H Total CO2 30 Base Excess 5 H O2 Saturation 94 L O2 % 40.0 ABG pCO2 43.0 ABG pO2 69 L Polo Test Positive Respiration Rate 16 O2 Delivery Device Adult Vent Vent Mode AC Tidal Volume 450.0 POC PEEP 5 Rhythm Strip Rhythm Strip: Sinus Tach Rate: 123 Ectopy: - (No pauses noted.) Physical Exam Narrative Constitutional Narrative: Patient is sedated and on the ventilator General Appearance: well developed HEENT normocephalic, head/scalp atraumatic and moist oral mucous membranes Eyes PERRL, EOMs intact bilaterally and conjunctivae normal Neck supple, no JVD, thyroid normal and no carotid bruits General: trachea midline Resp normal respiratory effort, no retractions, no use of accessory muscles and clear to auscultation bilaterally Auscultation: Negative for rales, rhonchi or wheezes Cardio regular rate, regular rhythm, S1 normal heart sound, S2 normal heart sound, no murmurs, no rub and no gallops GI normal to inspection, nondistended, normoactive bowel sounds and non-distended Extremity no clubbing, cyanosis or edema Skin no rashes or lesions noted General Skin Exam: no breakdown Neuro CN's II-XII intact bilaterally Neuro Narrative: Patient is sedated and on the ventilator Psych Psych Narrative: Patient is sedated and on the ventilator Assessment & Plan Assessment/Plan (1) Respiratory failure: PLAN: Plan 1. Sepsis secondary to MRSA bacteremia from pneumonia-patient remains on antimicrobials per ID #2 acute combined respiratory failure-critical care is participating in his care, patient remains on ventilator at this time #3 acute severe protein and caloric malnutrition related to inadequate energy intake due to swallowing difficulties as evidenced by unintentional 4% weight loss less than 5 days and p.o. intake less than 50% of estimated energy needs x 6 days-patient will continue enteral nutrition via tube feeds with vital AF 1.2 to a goal rate of 60 cc/h with 100 cc H2O flush every 4 hours to provide 1728- calorie, nutritional services is participating in the patient's care #4 acute kidney injury-patient is being seen by nephrology, he remains on a Lasix drip #5 schizophrenia, complicates care, management, recovery, and prognosis-patient was currently living in a detention #6 essential hypertension-patient's blood pressure is currently under control on present medications #7 acute anemia-etiology unclear at this point, I have elected to transfuse 1 unit of packed red blood cells, CBC will be rechecked tomorrow #8 cardiac arrest-again this was brief today, CODE BLUE was initiated and patient was given 1 mg atropine for bradycardia which resulted in a sinus tachycardia with a pulse. Patient's brother who is his legal guardian will talk with his siblings today concerning the patient's CODE STATUS to see if they want to change it to a DNR. Total clinical time spent by myself addressing the patient's medical issues, reviewing all of his data, and collaborating with patient's care team: 35 minutes Charges/Coding Visit Charges Inpatient E&M: 83999 Subs Hosp L2
[2023-12-11] MEDS: Chlorhexidine 15 ML PO ×2 (08:41→20:59)
[2023-12-11] MEDS: Valproic Acid 250 MG/5 ML UDC 500 MG GT ×2 (08:41→20:59)
[2023-12-11] MEDS: Aspirin 81 MG TAB.CHEW GT (08:42)
[2023-12-11] MEDS: MEDROXYPROGESTERONE ACETATE 10 MG TABLET GT ×2 (08:43→20:59)
[2023-12-11] MEDS: Heparin Injection (Vial) 5,000 UNIT/ML VIAL 5000 UNIT SC ×2 (08:43→20:59)
[2023-12-11] MEDS: Menthol/Lanolin/Calamine/Znox 113 GM Tube 1 APPLIC TOPICAL ×2 (08:43→20:58)
[2023-12-11] MEDS: Pantoprazole Sodium 40 MG in 0.9% Normal Saline (100mL MB+) 100 ML 330 MG IV (08:46)
[2023-12-11] MEDS: QUEtiapine 25 MG Tablet 50 MG GT ×2 (08:47→20:59)
--- NOTE | 2023-12-11 10:04 | PCM.PN.REN ---
Subjective Subjective Follow-up on acute kidney injury. Patient remains in ICU, intubated, sedated with propofol and fentanyl. Minimal ventilatory support with FiO2 of 35%, 5 of PEEP. Has Browning catheter in and continues to make great urine. He is on Lasix drip. No pressors, blood pressure soft but stable. Currently on tube feeds Objective Data Objective Data Vital Signs: Vital Signs Temp Pulse Resp BP Pulse Ox O2 Del Method O2 Flow Rate 98.1 F 70 16 119/72 91 Mechanical Ventilator 40 12/11/23 08:00 12/11/23 09:26 12/11/23 09:26 12/11/23 09:00 12/11/23 09:26 12/11/23 09:00 12/07/23 06:00 FiO2 35 12/11/23 09:26 Oxygen Flow Rate (L/min) 40 Oxygen Delivery Method Mechanical Ventilator Weight: 100.6 kg Body Mass Index (BMI) 31.7 Intake & Output: Intake and Output for Last 24 Hours 12/09/23 12/10/23 12/11/23 23:59 23:59 23:59 Intake Total 3306.68 / 3378.08 2150.82 / 2174.97 459.00 / 459.00 Output Total 3150 / 4050 5500 / 5500 1000 / 1000 Balance 156.68 / -671.92 -3349.18 / -3325.03 -541.00 / -541.00 Medical Nutrition Assessment Dietitian: Malnutrition Criteria Met Start: 12/01/23 09:36 Freq: Status: Active Protocol: Document 12/11/23 09:56 [email or web address] (Rec: 12/11/23 09:56 [id number]) Nutrition Malnutrition Evidence of Malnutrition Exists Yes Malnutrition (severe): Acute Illness/Injury Evidenced By Suboptimal Energy Intake ( Severe),Weight Loss (Severe) Intake Problem Inadequate Oral Intake Etiology related to decreased ability to consume sufficient energy to meet estimated nutrient needs Signs/Symptoms as evidenced by extended NPO status x 10 days and intubation with need for enteral nutrition. Status Active Problem Clinical Problem Acute Disease or Injury Related Malnutrition Etiology severe, acute malnutrition related to inadequate energy intake d/t swallowing difficulties Signs/Symptoms as evidenced by unintentional 4% wt loss < 5 days, PO intake meeting <50% of estimated energy needs x 6 days Status Active Problem Recommendation Dietitian Recommendations/Changes NPO while intubated; Continue via OGT- Vital AF 1.2 Carloz at goal rate of 60mL/hour w/ decreased flush of 50mL H2O flush every 4 hours to provide 1728 calories, 108 g protein, and 1467mL total fluid/day. Lab / Micro Data Attestation: I reviewed the patient's lab results. 12/11/23 03:30 12/11/23 03:30 Labs: Laboratory Results - last 24 hr 12/09/23 07:55: Crossmatch See Detail 12/10/23 11:20: POC Glucose 112 H 12/10/23 18:06: POC Glucose 109 H 12/10/23 23:04: POC Glucose 112 H 12/11/23 03:30: WBC 10.5, RBC 2.90 L, Hgb 7.8 L, Hct 24.5 L, MCV 84.5, MCH 26.9 L, MCHC 31.8 L, RDW Std Deviation 52.7 H, RDW Coeff of Saman 22.0 H, Plt Count 573 H, MPV 12.3 H, Immature Gran % (Auto) 1.100 H, Neut % (Auto) 68.7, Lymph % (Auto) 17.2 L, [place] % (Auto) 10.1 H, Eos % (Auto) 2.6, Baso % (Auto) 0.3, Absolute Neuts (auto) 7.2, Absolute Lymphs (auto) 1.80, Nucleated RBC % 0.2, Anisocytosis 2+, Sodium 146 H, Potassium 3.9, Chloride 111 H, Carbon Dioxide 29.0, Anion Gap 6, BUN 55 H, Creatinine 2.64 H, Estim Creat Clear Calc 33.52, Est GFR (MDRD) Af Amer 31 L, Est GFR (MDRD) Non-Af 26 L, BUN/Creatinine Ratio 20.8 H, Glucose 118 H, Calcium 8.8, Total Bilirubin 0.30, AST 29, ALT 23, Alkaline Phosphatase 91, Total Protein 6.8, Albumin 1.3 L, Globulin 5.5 H, Albumin/Globulin Ratio 0.2 L 12/11/23 05:03: POC Glucose 117 H Micro: Microbiology 12/03/23 16:20 Sputum, Induced/Lukens Gram Stain - Final 12/03/23 16:20 Sputum, Induced/Lukens Respiratory Culture - Final Meth. resistant Staph. aureus Yeast, not Evy albicans 11/29/23 09:50 Blood Culture (Wb) - Right Hand Blood Culture - Final No growth in 5 days. 12/03/23 16:55 Stool Enteric Bacteriology - Final 12/03/23 16:55 Stool Clostridioides difficile (PCR) - Final 11/28/23 13:16 Blood Culture (Wb) - Left Hand Blood Culture - Final No growth in 5 days. 11/25/23 10:45 Blood Culture (Wb) - Anticubital Right Blood Culture - Final No growth in 5 days. 11/25/23 10:38 Blood Culture (Wb) - Anticubital Left Blood Culture - Final Meth. resistant Staph. aureus 11/25/23 11:45 Urine, Catheterized Urine Culture - Final Culture exhibits no growth. 11/26/23 11:26 Stool Clostridioides difficile (PCR) - Final 11/25/23 11:40 Mucosa - Nose SARS-CoV-2, Influenza & RSV (PCR) - Final ABG Data ABG results: ABG 12/11/23 05:26 Specimen Type ART Sample Site L Radial pH 7.44 Bicarbonate Actual 28.9 H Total CO2 30 Base Excess 5 H O2 Saturation 94 L O2 % 40.0 ABG pCO2 43.0 ABG pO2 69 L Polo Test Positive Respiration Rate 16 O2 Delivery Device Adult Vent Vent Mode AC Tidal Volume 450.0 POC PEEP 5 Attestation: I personally reviewed and interpreted this ABG as follows: Rhythm Strip Rhythm Strip: Sinus Tach Rate: 123 Ectopy: - (No pauses noted.) Physical Exam Const average body habitus General Appearance: well developed and patient mechanically ventilated HEENT normocephalic Head and Scalp: atraumatic Neck no lymphadenopathy Resp Auscultation: rhonchi Cardio regular rate and no murmurs GI Auscultation: normoactive bowel sounds Palpation: soft external exam normal Skin no rashes or lesions noted Neuro Sensorium / Orientation: sedated on vent Assessment & Plan Assessment/Plan (1) JULIETTE (acute kidney injury): PLAN: Patient has nonoliguric ATN, currently fluid overloaded. Normal electrolytes, no acidosis. Having great urine output with Lasix drip and renal function continues to improve in spite of it. Plan Definitely continue with Lasix drip, adjust as needed, no renal replacement therapy as needed
[2023-12-11] MEDS: Vital AF 1.2 Cal Liquid 1,000 ML 60 ML GT (10:18)
[2023-12-11] MEDS: Ferrous Sulfate 300 MG/5 ML UDC GT (11:19)
[2023-12-11] MEDS: Dextrose 50%-Water 25 GM/50 ML DISP.SYRIN IV (11:20)
[2023-12-11 11:42] LABS: Bedside Glucose 56 mg/dL (74-106)
--- NOTE | 2023-12-11 11:47 | PCM.PN.TICU ---
Objective Data Objective Data Vital Signs: Vital Signs Last response Temperature 36.5 C L 12/11/23 10:00 Temperature Source Core 12/11/23 10:00 Pulse Rate 64 12/11/23 11:00 Pulse Strength Weak (1+) 12/07/23 09:00 Respiratory Rate 16 12/11/23 11:00 Respiratory Effort Mechanically Ventilated 12/11/23 11:28 Respiratory Depth Normal 12/11/23 11:28 Respiratory Pattern Normal 12/11/23 11:28 Blood Pressure 102/53 L 12/11/23 11:00 Blood Pressure Mean 69 12/11/23 11:00 Blood Pressure Source Monitor 12/11/23 11:00 Blood Pressure Position Semi-Fowlers 12/11/23 11:00 Blood Pressure Location Right Forearm 12/11/23 11:00 Pulse Ox 96 12/11/23 11:00 Oxygen Delivery Method Mechanical Ventilator 12/11/23 11:28 Oxygen Flow Rate (L/min) 40 12/07/23 06:00 Fraction of Inspired Oxygen (FIO2) 35 12/11/23 11:28 I&O: I&O Last 24 Hours 12/10/23 12/10/23 12/11/23 11:59 23:59 11:59 Intake Total 1235.97 / 2174.97 914.85 / 2174.97 1564.80 / 1564.80 Output Total 3500 / 5500 2000 / 5500 1750 / 1750 Balance -2264.03 / -3325.03 -1085.15 / -3325.03 -185.20 / -185.20 I&O: Total Stay 11/25/23 10:09 thru 12/11/23 11:28 Intake Total 83284.93 Output Total 48408 Balance 32006.93 Current Meds Ordered / Administered: Current meds ordered / Administered Generic Name Dose Route Start Last Admin Trade Name Freq PRN Reason Stop Dose Admin Acetaminophen 650 mg 12/04/23 11:44 Acetaminophen 650 Mg/20 Ml Udc PO Q4H PRN fever or pain 1-06/21 Albuterol Sulfate 2.5 mg 12/06/23 01:07 12/06/23 01:32 Albuterol 2.5 Mg/3 Ml Vial.Neb. INHALATION 2.5 mg Q2H PRN PRN Administration WHEEZING Aspirin 81 mg 12/07/23 08:30 12/11/23 08:42 Aspirin 81 Mg Tab.Chew GT 81 mg DAILYCM WILLIAM Administration Atorvastatin Calcium 80 mg 12/04/23 22:00 12/10/23 19:54 Atorvastatin Calcium 80 Mg Tablet GT 80 mg QHS WILLIAM Administration Atropine Sulfate 1 mg 11/30/23 21:50 12/02/23 21:43 Atropine Sulfate 1 Mg/10 Ml Syringe IV 1 mg PRN PRN Administration HR< 40bpm, unstable VS/symptom Calamine/Phenol 1 applic 12/07/23 22:00 12/11/23 08:43 Menthol/Lanolin/Calamine/Znox 113 Gm Tube TOPICAL 1 applic BID WILLIAM Administration Protocol Chlorhexidine Gluconate 15 ml 12/03/23 22:00 12/11/23 08:41 Chlorhexidine 15 Ml PO 15 ml BID WILLIAM Administration Chlorhexidine Gluconate 1 each 12/05/23 10:00 12/11/23 08:41 Chlorhexidine Gluc 2% Cloth 1 Each Towelette TOPICAL 1 each DAILY WILLIAM Administration Dextrose 0 gm 11/25/23 15:29 12/11/23 11:20 Dextrose 50%-Water 25 Gm/50 Ml Disp.Syrin IV 12.5 gm X1 PRN Administration HYPOGLYCEMIA Protocol Ferrous Sulfate 300 mg 12/08/23 12:00 12/11/23 11:19 Ferrous Sulfate 300 Mg/5 Ml Udc GT 300 mg LUNCH WILLIAM Administration Glucagon 1 mg 11/25/23 15:29 Glucagon 1 Mg/Ml Syringe IM X1 PRN HYPOGLYCEMIA Heparin Sodium (Porcine) 5,000 unit 11/25/23 22:00 12/11/23 08:43 Heparin Injection (Vial) 5,000 Unit/Ml Vial SC 5,000 unit Q12 WILLIAM Administration Sodium Chloride 250 mls @ 15 mls/hr 11/25/23 15:45 12/09/23 20:30 IV 0 mls/hr .[id number] PRN Infusion Additional IVPB Infusion Sodium Chloride 250 mls @ 15 mls/hr 11/25/23 15:45 12/09/23 10:07 IV Infused .[id number] PRN Infusion Saline Flush Vancomycin IV-PHARMACY TO DOSE 500 mls @ 250 mls/hr 11/27/23 07:55 1 each/ Sodium Chloride IV PRN PRN Rx to Dose Protocol Pantoprazole Sodium 40 mg/ 110 mls @ 330 mls/hr 12/04/23 10:00 12/11/23 09:09 Sodium Chloride IV Infused Q24 WILLIAM Infusion Fentanyl 100 mls @ 2.5 mls/hr 12/03/23 16:30 12/11/23 11:00 CONT INF 150 mcg/hr UD WILLIAM 15 mls/hr Titration Protocol 25 MCG/HR Enteral Nutritional Formula 1,000 mls @ 60 mls/hr 12/05/23 11:05 12/11/23 10:18 Vital Af 1.2 Carloz Liquid GT 60 mls/hr .[id number] WILLIAM Administration Propofol 1,000 mg in 100 mls @ 6.438 mls/hr 12/06/23 06:55 12/11/23 11:00 Diprivan CONT INF 20 mcg/kg/min .Q12H WILLIAM 12.9 mls/hr Titration Protocol 10 MCG/KG/MIN Furosemide 500 mg/ N/A 50 mls @ 1.5 mls/hr 12/08/23 08:00 12/11/23 10:18 CONT INF Not Given .[id number] WILLIAM 15 MG/HR Insulin Glargine 30 unit 12/06/23 10:00 12/11/23 11:18 Insulin Glargine-Yfgn 100 Unit/Ml Pen SC Not Given BID WILLIAM Insulin Human Lispro 0 unit 12/09/23 12:00 12/11/23 11:18 Insulin Lispro 100 Unit/Ml Insuln.Pen SC Not Given Q6 [facility] Protocol Levothyroxine Sodium 50 mcg 12/05/23 06:00 12/11/23 04:56 Levothyroxine 50 Mcg Tablet GT 50 mcg DAILY@0600 WILLIAM Administration Medroxyprogesterone Acetate 10 mg 12/04/23 22:00 12/11/23 08:43 Medroxyprogesterone Acetate 10 Mg Tablet GT 10 mg BID WILLIAM Administration Nystatin 1 applic 12/08/23 14:00 12/11/23 04:56 Nystatin Powder 15gm Bottle TOPICAL 1 applic TID WILLIAM Administration Protocol Polyethylene Glycol 17 gm 12/08/23 10:00 12/11/23 08:42 Polyethylene Glycol 3350 17 Gm Packet GT Not Given DAILY WILLIAM Quetiapine Fumarate 50 mg 12/09/23 10:00 12/11/23 08:47 Quetiapine 25 Mg Tablet GT 50 mg BID WILLIAM Administration Protocol Senna/Docusate Sodium 2 tablet 12/05/23 10:00 12/11/23 08:42 Senna/Docusate Sodium 1 Tablet GT Not Given BID WILLIAM Sodium Chloride 10 - 40 ml 11/25/23 15:45 12/11/23 03:34 0.9% Saline Lock 10 Ml Syringe IV 30 ml UD PRN Administration SALINE FLUSH Trazodone HCl 100 mg 12/04/23 22:00 12/10/23 19:54 Trazodone 100 Mg Tablet GT 100 mg QHS WILLIAM Administration Valproic Acid 500 mg 12/06/23 22:00 12/11/23 08:41 Valproic Acid 250 Mg/5 Ml Udc GT 500 mg BID WILLIAM Administration Valproic Acid 250 mg 12/06/23 22:00 12/10/23 19:54 Valproic Acid 250 Mg/5 Ml Udc GT 250 mg QHS WILLIAM Administration Vancomycin Protocol 1 lab 12/12/23 04:00 Vancomycin Trough/Random Due MC 12/12/23 08:00 DAILY [facility] Medical Records Data Medical Nutrition Assessment Dietitian: Malnutrition Criteria Met Start: 12/01/23 09:36 Freq: Status: Active Protocol: Document 12/11/23 09:56 LO (Rec: 12/11/23 09:56 [id number]) Nutrition Malnutrition Evidence of Malnutrition Exists Yes Malnutrition (severe): Acute Illness/Injury Evidenced By Suboptimal Energy Intake ( Severe),Weight Loss (Severe) Intake Problem Inadequate Oral Intake Etiology related to decreased ability to consume sufficient energy to meet estimated nutrient needs Signs/Symptoms as evidenced by extended NPO status x 10 days and intubation with need for enteral nutrition. Status Active Problem Clinical Problem Acute Disease or Injury Related Malnutrition Etiology severe, acute malnutrition related to inadequate energy intake d/t swallowing difficulties Signs/Symptoms as evidenced by unintentional 4% wt loss < 5 days, PO intake meeting <50% of estimated energy needs x 6 days Status Active Problem Recommendation Dietitian Recommendations/Changes NPO while intubated; Continue via OGT- Vital AF 1.2 Carloz at goal rate of 60mL/hour w/ decreased flush of 50mL H2O flush every 4 hours to provide 1728 calories, 108 g protein, and 1467mL total fluid/day. Lab / Micro Data 12/12/23 03:43 12/12/23 03:43 Labs: Laboratory Results - last 24 hr 12/09/23 07:55: Crossmatch See Detail 12/10/23 18:06: POC Glucose 109 H 12/10/23 23:04: POC Glucose 112 H 12/11/23 03:30: WBC 10.5, RBC 2.90 L, Hgb 7.8 L, Hct 24.5 L, MCV 84.5, MCH 26.9 L, MCHC 31.8 L, RDW Std Deviation 52.7 H, RDW Coeff of Saman 22.0 H, Plt Count 573 H, MPV 12.3 H, Immature Gran % (Auto) 1.100 H, Neut % (Auto) 68.7, Lymph % (Auto) 17.2 L, [place] % (Auto) 10.1 H, Eos % (Auto) 2.6, Baso % (Auto) 0.3, Absolute Neuts (auto) 7.2, Absolute Lymphs (auto) 1.80, Nucleated RBC % 0.2, Anisocytosis 2+, Sodium 146 H, Potassium 3.9, Chloride 111 H, Carbon Dioxide 29.0, Anion Gap 6, BUN 55 H, Creatinine 2.64 H, Estim Creat Clear Calc 33.52, Est GFR (MDRD) Af Amer 31 L, Est GFR (MDRD) Non-Af 26 L, BUN/Creatinine Ratio 20.8 H, Glucose 118 H, Calcium 8.8, Total Bilirubin 0.30, AST 29, ALT 23, Alkaline Phosphatase 91, Total Protein 6.8, Albumin 1.3 L, Globulin 5.5 H, Albumin/Globulin Ratio 0.2 L 12/11/23 05:03: POC Glucose 117 H 12/11/23 11:17: POC Glucose 56 L ABG Data ABG results: ABG 12/11/23 05:26 Specimen Type ART Sample Site L Radial pH 7.44 Bicarbonate Actual 28.9 H Total CO2 30 Base Excess 5 H O2 Saturation 94 L O2 % 40.0 ABG pCO2 43.0 ABG pO2 69 L Polo Test Positive Respiration Rate 16 O2 Delivery Device Adult Vent Vent Mode AC Tidal Volume 450.0 POC PEEP 5 Rhythm Strip Rhythm Strip: Sinus Tach Rate: 123 Ectopy: - (No pauses noted.) Assessment and Plan . Assessment and plan: Patient seen and examined Chart and data reviewed He is sedated currently I/O (-) w/ furosemide, but net remains net (+) pCXR and ABG reviewed Early today, he had an episode of bradycardia --> asystole --> CPR performed for about 2 min --> currently NSR 60s Responsive following the event, p/t sedation increased MV reviewed No plans for SBT today given above events EXAM GEN sedated VS as above HEENT NENA NECK supple COR RRR CHEST coarse ABD soft EXT pirring edema SKIN w/d AUBREE NF, sedated ASSESSMENT 1. Acute respiratory failure requiring MV support 2. Prolonged MV support 3. Presumed bacterial PNA 4. Hypervolemia 5. Renal insufficiency 6. CAD / ASCVD / chronic AF 7. H/O psychiatric illness 8. Anemia 9. Christian/pauses/asystole --> significant event 12/11/23 as above TREATMENT PLAN -MV support as is -sedation as needed -ABG and pCXR in am -enteral nutrition -loop diuretics as tolerated -ABX -VTE ppx -meds reviewed --> no AVN blocking drugs currently -consider cardiology/EP evaluation Critical Care Time: 50 min The entirety of this encounter was done via Telemedicine
[2023-12-11 11:52] LABS: Bedside Glucose 144 mg/dL (74-106)
[2023-12-11 13:24] LABS: Bedside Glucose 115 mg/dL (74-106)
[2023-12-11] MEDS: fentaNYL drip 100 ML 10 MCG CONT INF (14:14)
[2023-12-11 17:57] LABS: Bedside Glucose 127 mg/dL (74-106)
[2023-12-11] MEDS: traZODone 100 MG Tablet GT (20:59)
[2023-12-11] MEDS: Atorvastatin Calcium 80 MG Tablet GT (20:59)
[2023-12-11] MEDS: Valproic Acid 250 MG/5 ML UDC GT (20:59)
[2023-12-11] MEDS: Insulin Glargine-YFGN 100 UNIT/ML Pen 30 UNIT SC (23:08)
[2023-12-11] MEDS: Insulin Lispro 100 UNIT/ML INSULN.PEN SC (23:08)
[2023-12-11 23:31] LABS: Bedside Glucose 165 mg/dL (74-106)
[2023-12-12] VITALS (33 sets, daily range): BP systolic 95–156; BP diastolic 49–80; PULSE 55–117; RESP 14–37; TEMP 36.3–37.2; O2SAT 88–99; BMI 30.7
[2023-12-12] MEDS: Furosemide 500 MG in Empty Viaflex 50 mL 1 EACH CONT INF (03:29)
[2023-12-12 03:54] LABS: Absolute Lymphocyte Count 1.78 X10^3/uL (0.83-4.51); Absolute Neutrophil Count 9.2 X10^3/uL (2.0-7.7); Basophil# 0.03 X10^3/uL; Basophil% 0.2 % (0-1); Eosinophil# 0.32 X10^3/uL; Eosinophils% 2.6 % (0-5); Hematocrit 25.6 % (40-54); Hemoglobin 8.1 g/dL (13.0-16.5); Lymphocyte # 1.78 X10^3/ul (0.83-4.51); Lymphocyte % 14.3 % (19-41); Mean Corp Hgb Conc 31.6 g/dL (32-36); Mean Corpuscular Hgb 27.2 pg (27.0-32.0); Mean Corpuscular Volume 85.9 fL (80-94); Mean Platelet Vol. 11.2 fl (6.2-12.0); Monocyte# 1.07 X10^3/uL; Monocyte% 8.6 % (0-10); NRBC Flagged by Analyzer 0.2 % (0-5); Neutrophil # 9.17 X10^3/uL (2.7-7.7); Neutrophil % 73.7 % (47-70); POSITIVE MORPHOLOGY YES; Platelet Count 680 K/mm3 (150-450); RBC Distribution Width CV 22.1 % (11.6-14.6); RBC Distribution Width SD 53.8 fl (35.1-43.9); Red Blood Count 2.98 M/mm3 (4.6-6.2); White Blood Count 12.5 K/mm3 (4.4-11.0)
[2023-12-12 04:09] LABS: Anion Gap 5 (5-15); BUN 56 mg/dL (7-18); BUN/Creat Ratio 20.8 RATIO (10-20); Calcium,Total 8.9 mg/dL (8.5-10.1); Chloride 107 mmol/L (98-107); Creatinine, Serum 2.69 mg/dL (0.70-1.30); EST Glomerular Filtration Rate 25 mL/min (>60); Est Glom Filt Rate - Afr Amer 31 mL/min (>60); Estimated Creatinine Clearance 32.54 ml/min; Glucose 257 mg/dL (74-106); Potassium 3.5 mmol/L (3.5-5.1); Sodium Level 143 mmol/L (136-145)
[2023-12-12 04:12] LABS: Vancomycin, Random Level 16.1 ug/mL (0.0-15.0)
[2023-12-12 04:13] LABS: Differential Indicated SCAN CRITERIA MET
--- NOTE | 2023-12-12 04:24 | PCM.RX.CS ---
Consult Antibiotic Management Pharmacy has been consulted to manage selected antibiotic: Vancomycin Type of Intervention Type of Consult: Follow-up Suspected Infection Suspected Infection: Pneumonia Labs Labs: Sodium 143 mmol/L (136-145) 12/12/23 03:43 Potassium 3.5 mmol/L (3.5-5.1) 12/12/23 03:43 Chloride 107 mmol/L (98-107) 12/12/23 03:43 Carbon Dioxide 31.0 mmol/L (21.0-32.0) 12/12/23 03:43 Anion Gap 5 (5-15) 12/12/23 03:43 BUN 56 mg/dL (7-18) H 12/12/23 03:43 Creatinine 2.69 mg/dL (0.70-1.30) H 12/12/23 03:43 Est GFR (MDRD) Af Amer 31 mL/min (>60) L 12/12/23 03:43 Est GFR (MDRD) Non-Af 25 mL/min (>60) L 12/12/23 03:43 BUN/Creatinine Ratio 20.8 RATIO (10-20) H 12/12/23 03:43 Glucose 257 mg/dL (74-106) H 12/12/23 03:43 Vancomycin Trough 23.2 ug/mL (5.0-15.0) H 12/07/23 06:38 Random Vancomycin 16.1 ug/mL (0.0-15.0) H 12/12/23 03:43 Microbiology Microbiology: Microbiology 12/03/23 16:20 Sputum, Induced/Lukens Gram Stain - Final 12/03/23 16:20 Sputum, Induced/Lukens Respiratory Culture - Final Meth. resistant Staph. aureus Yeast, not Evy albicans 11/29/23 09:50 Blood Culture (Wb) - Right Hand Blood Culture - Final No growth in 5 days. 12/03/23 16:55 Stool Enteric Bacteriology - Final 12/03/23 16:55 Stool Clostridioides difficile (PCR) - Final 11/28/23 13:16 Blood Culture (Wb) - Left Hand Blood Culture - Final No growth in 5 days. 11/25/23 10:45 Blood Culture (Wb) - Anticubital Right Blood Culture - Final No growth in 5 days. 11/25/23 10:38 Blood Culture (Wb) - Anticubital Left Blood Culture - Final Meth. resistant Staph. aureus 11/25/23 11:45 Urine, Catheterized Urine Culture - Final Culture exhibits no growth. 11/26/23 11:26 Stool Clostridioides difficile (PCR) - Final 11/25/23 11:40 Mucosa - Nose SARS-CoV-2, Influenza & RSV (PCR) - Final Dosing Weight Weight used for dosin.6 kg Estimated Creatinine Clearance Estimated Creatinine Clearance: 33 Goal Trough Goal Trough: 15-20 mcg/mL Pharmacy Plan for Drug Dosing Pharmacy Plan for Drug Dosing: Random vancomycin level was 16.1, within the target range of 15-20. This was drawn approximately 43 hrs post-dose. With no significant change to renal function, we will continue to dose based on levels. A 500mg dose will again be given 12/12/23, then another random level taken 12/14/23. Pharmacy Service will continue to monitor and adjust dosing as required. Follow-Up Labs Follow-Up Labs: Trough: Vancomycin (random) Date/Time Labs Ordered Labs to be done on [date and time ordered]: 12/14/23 @0600
[2023-12-12 04:33] LABS: Anisocytosis 2+; Differential Comment SCANNED
[2023-12-12] MEDS: fentaNYL drip 100 ML 5 MCG CONT INF (04:48)
[2023-12-12] MEDS: Levothyroxine 50 MCG Tablet GT (05:09)
[2023-12-12] MEDS: CHLORHEXIDINE GLUC 2% CLOTH 1 EACH TOWELETTE TOPICAL (05:09)
[2023-12-12] MEDS: 0.9% Saline Lock 10 ML Syringe IV ×2 (05:09→08:48)
[2023-12-12] MEDS: Nystatin Powder 15gm Bottle 1 APPLIC TOPICAL ×3 (05:10→21:11)
[2023-12-12] MEDS: Insulin Lispro 100 UNIT/ML INSULN.PEN SC ×3 (05:12→17:31)
[2023-12-12] MEDS: Vital AF 1.2 Cal Liquid 1,000 ML 60 ML GT ×2 (05:33→22:04)
[2023-12-12] MEDS: Propofol 10MG/Ml 1,000 MG/100 ML Bottle 9.7 MG CONT INF (05:37)
[2023-12-12] MEDS: TITRATION PARAMETER CHANGE 1 EACH IV (05:38)
[2023-12-12 05:42] LABS: Bedside Glucose 201 mg/dL (74-106)
--- NOTE | 2023-12-12 06:00 | RAD_ITS ---
INDICATION: arf EXAMINATION/TECHNIQUE: X-RAY - XR Chest 1 View AP portable. 5:52 AM COMPARISON: 12/11/2023 FINDINGS: LINES/DEVICES: Tip of the endotracheal tube is 5 cm above the jaci. NG tube tip below the diaphragm. LUNGS: Patchy opacity in the right lung base increased. Left pleural effusion and basilar unchanged. No pneumothorax. MEDIASTINUM: Unremarkable. CARDIAC SILHOUETTE: Not enlarged. BONES AND SOFT TISSUES: No acute abnormalities. RAD/Chest 1 View (Portable) IMPRESSION: Increased right basilar infiltrate or atelectasis. No change left pleural effusion and left basilar atelectasis. Electronically Signed: Rema Jaffe MD at 8:17 EDT ,
[2023-12-12 06:11] LABS: Allen Test Positive; Base Excess 6 mmol/L (-2 to +2); Bicarbonate 29.8 mmol/L (22-26); Blood Gas Specimen Type ART; Mode AC; O2 Delivery Device ET Tube; PEEP 5; PO2 58 mmHG (75-100); RR 16; SITE R Radial; SO2 91 % (95-99); Total Carbon Dioxide 31 mmol/L; pCO2 41.8 mmHg (35-45); pH 7.46 (7.35-7.45)
--- NOTE | 2023-12-12 06:24 | PCM.PN.INT ---
Assessment & Plan Assessment/Plan (1) MRSA bacteremia: (2) Sepsis: PLAN: Plan RECOMMENDATIONS: 1. Continue assist-control mode mechanical ventilation. Wean FiO2/PEEP for saturations greater than 90%. 2. Antimicrobials per ID recommendations. 3. Lasix infusion as tolerated by hemodynamics and renal function. 4. Continue tube feeding as tolerated. 5. Continue appropriate ICU prophylaxis 6. Await goals of care discussion with the patient's family IMPRESSIONS: 1. Sepsis secondary to MRSA bacteremia It is suspected that the patient developed post influenza pneumonia resulting in secondary bacteremia. The patient remains on antimicrobials per ID recommendations. No vegetations were seen on TTE. The patient remains hemodynamically stable. 2. Acute combined respiratory failure The patient was ultimately intubated in the setting of acute CO2 retention. He did have evidence of MRSA pneumonia, for which he remains on antibiotics. The patient continues to have a significant amount of secretions and continues to fail spontaneous breathing trials. Plan to continue current supportive measures, while awaiting finalized goals of care decisions with the patient's family. If the patient continues to fail SBT's, tracheostomy and PEG tube placement may need to be considered. Continue ongoing attempts at diuresis as tolerated by hemodynamics and renal function, as the patient is volume overloaded for the hospitalization. 3. History of atrial fibrillation/sinus pauses/coronary artery disease Cardiology is currently following to assist with medical management. Will defer management on rate/rhythm control strategy. 4. History of paranoid schizophrenia/chronic kidney disease/hypertension/diabetes mellitus/hypothyroidism Complicates care, management, recovery and prognosis. Continue supportive measures as noted above along with basal and sliding scale insulin coverage. Continue tube feeding as tolerated. TIME: 34 minutes of critical care time, independent of procedures, was spent addressing the patient's sepsis, MRSA pneumonia with bacteremia, acute combined respiratory failure, sinus arrhythmia, review of all data and collaboration with care team. Subjective Subjective The patient was seen and examined at the bedside this morning. Events from the last 24 hours have been reviewed. The patient is currently afebrile, hemodynamically stable and maintaining appropriate oxygen saturations on assist-control mode of mechanical ventilation with an FiO2 requirement of 35%. The patient once again failed his spontaneous breathing trial. He remains on a Lasix drip and continues to tolerate tube feeding. Secretion output continues to be a significant issue, according to nursing report. The patient is currently documented to be overall net +16.5 L for the hospitalization. Hemoglobin this morning was noted to be 8.1 g/dL. Platelet count is elevated at 680,000. Creatinine is elevated at 2.69. Objective Data Objective Data The patient's most recent lab work, culture data and imaging studies have all been personally reviewed. Sputum culture dated December 02 was positive for MRSA. Vital Signs: Vital Signs Temp Pulse Resp BP Pulse Ox O2 Del Method O2 Flow Rate 98.0 F 117 H 17 156/74 H 94 Mechanical Ventilator 40 12/12/23 06:00 12/12/23 06:00 12/12/23 06:00 12/12/23 06:00 12/12/23 06:00 12/12/23 06:00 12/07/23 06:00 FiO2 35 12/12/23 06:00 Oxygen Flow Rate (L/min) 40 Oxygen Delivery Method Mechanical Ventilator Weight: 214 lb 15.211 oz Body Mass Index (BMI) 30.7 Intake & Output: Intake and Output for Last 24 Hours 12/10/23 12/11/23 12/12/23 23:59 23:59 23:59 Intake Total 2150.82 / 2174.97 2029.15 / 2055.12 1230.26 / 1230.26 Output Total 5500 / 5500 3375 / 3375 950 / 950 Balance -3349.18 / -3325.03 -1345.85 / -1319.88 280.26 / 280.26 Medical Nutrition Assessment Dietitian: Malnutrition Criteria Met Start: 12/01/23 09:36 Freq: Status: Active Protocol: Document 12/11/23 09:56 SARAHI (Rec: 12/11/23 09:56 [id number]) Nutrition Malnutrition Evidence of Malnutrition Exists Yes Malnutrition (severe): Acute Illness/Injury Evidenced By Suboptimal Energy Intake ( Severe),Weight Loss (Severe) Intake Problem Inadequate Oral Intake Etiology related to decreased ability to consume sufficient energy to meet estimated nutrient needs Signs/Symptoms as evidenced by extended NPO status x 10 days and intubation with need for enteral nutrition. Status Active Problem Clinical Problem Acute Disease or Injury Related Malnutrition Etiology severe, acute malnutrition related to inadequate energy intake d/t swallowing difficulties Signs/Symptoms as evidenced by unintentional 4% wt loss < 5 days, PO intake meeting <50% of estimated energy needs x 6 days Status Active Problem Recommendation Dietitian Recommendations/Changes NPO while intubated; Continue via OGT- Vital AF 1.2 Carloz at goal rate of 60mL/hour w/ decreased flush of 50mL H2O flush every 4 hours to provide 1728 calories, 108 g protein, and 1467mL total fluid/day. Lab / Micro Data Attestation: I reviewed the patient's lab results. 12/12/23 03:43 12/12/23 03:43 Labs: Laboratory Results - last 24 hr 12/11/23 11:17: POC Glucose 56 L 12/11/23 11:35: POC Glucose 144 H 12/11/23 13:04: POC Glucose 115 H 12/11/23 17:37: POC Glucose 127 H 12/11/23 23:05: POC Glucose 165 H 12/12/23 03:43: WBC 12.5 H, RBC 2.98 L, Hgb 8.1 L, Hct 25.6 L, MCV 85.9, MCH 27.2, MCHC 31.6 L, RDW Std Deviation 53.8 H, RDW Coeff of Saman 22.1 H, Plt Count 680 H, MPV 11.2, Immature Gran % (Auto) 0.600, Neut % (Auto) 73.7 H, Lymph % (Auto) 14.3 L, [place] % (Auto) 8.6, Eos % (Auto) 2.6, Baso % (Auto) 0.2, Absolute Neuts (auto) 9.2 H, Absolute Lymphs (auto) 1.78, Nucleated RBC % 0.2, Differential Comment SCANNED, Anisocytosis 2+, Sodium 143, Potassium 3.5, Chloride 107, Carbon Dioxide 31.0, Anion Gap 5, BUN 56 H, Creatinine 2.69 H, Estim Creat Clear Calc 32.54, Est GFR (MDRD) Af Amer 31 L, Est GFR (MDRD) Non-Af 25 L, BUN/Creatinine Ratio 20.8 H, Glucose 257 H, Calcium 8.9, Random Vancomycin 16.1 H 12/12/23 05:12: POC Glucose 201 H Micro: Microbiology 12/03/23 16:20 Sputum, Induced/Lukens Gram Stain - Final 12/03/23 16:20 Sputum, Induced/Lukens Respiratory Culture - Final Meth. resistant Staph. aureus Yeast, not Evy albicans 11/29/23 09:50 Blood Culture (Wb) - Right Hand Blood Culture - Final No growth in 5 days. 12/03/23 16:55 Stool Enteric Bacteriology - Final 12/03/23 16:55 Stool Clostridioides difficile (PCR) - Final 11/28/23 13:16 Blood Culture (Wb) - Left Hand Blood Culture - Final No growth in 5 days. 11/25/23 10:45 Blood Culture (Wb) - Anticubital Right Blood Culture - Final No growth in 5 days. 11/25/23 10:38 Blood Culture (Wb) - Anticubital Left Blood Culture - Final Meth. resistant Staph. aureus 11/25/23 11:45 Urine, Catheterized Urine Culture - Final Culture exhibits no growth. 11/26/23 11:26 Stool Clostridioides difficile (PCR) - Final 11/25/23 11:40 Mucosa - Nose SARS-CoV-2, Influenza & RSV (PCR) - Final ABG Data ABG results: ABG 12/12/23 06:07 Specimen Type ART Sample Site R Radial pH 7.46 H Bicarbonate Actual 29.8 H Total CO2 31 Base Excess 6 H O2 Saturation 91 L O2 % 35.0 ABG pCO2 41.8 ABG pO2 58 L Polo Test Positive Respiration Rate 16 O2 Delivery Device ET Tube Vent Mode AC Tidal Volume 450.0 POC PEEP 5 Radiography Diagnostic Testing: Radiology Impression Chest X-Ray 12/11/23 05:50 IMPRESSION: Findings are unchanged. Electronically Signed: Sacha Nieves MD at 16:52 EDT Reading Location ID and State: [facility] / [place] , Service support , Rhythm Strip Rhythm Strip: Sinus Tach Rate: 123 Ectopy: - (No pauses noted.) Physical Exam Const Constitutional Narrative: Intubated, sedated and mechanically ventilated. No ventilator dyssynchrony noted. HEENT normocephalic and head/scalp atraumatic Mouth: endotracheal tube in place and OG tube in place Eyes PERRL, EOMs intact bilaterally and conjunctivae normal Neck supple General: trachea midline Chest inspection of chest normal Resp Auscultation: diminished lung sounds Cardio regular rate and regular rhythm GI normal to inspection, nondistended, normoactive bowel sounds Extremity General Extremity: edema bilateral lower extremity; Negative for clubbing Neuro Sensorium / Orientation: sedated on vent Charges/Coding Procedures Hospitalists Procedures: [id number] Critical Care 1st Hr
[2023-12-12 08:28] LABS: CPK Total, Creatine Kinase 37 U/L (39-308); Triglycerides 188 mg/dL
[2023-12-12] MEDS: Aspirin 81 MG TAB.CHEW GT (08:42)
[2023-12-12] MEDS: Valproic Acid 250 MG/5 ML UDC 500 MG GT ×2 (08:43→21:11)
[2023-12-12] MEDS: Heparin Injection (Vial) 5,000 UNIT/ML VIAL 5000 UNIT SC ×2 (08:43→21:11)
[2023-12-12] MEDS: QUEtiapine 25 MG Tablet 50 MG GT ×2 (08:43→21:11)
[2023-12-12] MEDS: MEDROXYPROGESTERONE ACETATE 10 MG TABLET GT ×2 (08:44→21:11)
[2023-12-12] MEDS: Pantoprazole Sodium 40 MG in 0.9% Normal Saline (100mL MB+) 100 ML 330 MG IV (08:47)
[2023-12-12] MEDS: Vancomycin IV 500 MG/100 ML BAG 100 MG IV (09:15)
[2023-12-12] MEDS: Chlorhexidine 15 ML PO ×2 (11:06→21:11)
[2023-12-12] MEDS: Menthol/Lanolin/Calamine/Znox 113 GM Tube 1 APPLIC TOPICAL ×2 (11:06→21:17)
[2023-12-12] MEDS: Ferrous Sulfate 300 MG/5 ML UDC GT (11:35)
[2023-12-12] MEDS: Propofol 10MG/Ml 1,000 MG/100 ML Bottle 17.6 MG CONT INF ×3 (11:38→22:01)
[2023-12-12 11:47] LABS: Bedside Glucose 269 mg/dL (74-106)
--- NOTE | 2023-12-12 11:50 | PN.RENAL_ITS ---
Subjective Subjective Intubated on ventilator support. No overnight events. Objective Data Objective Data Vital Signs: Vital Signs Temp Pulse Resp BP Pulse Ox O2 Del Method O2 Flow Rate 98.8 F 111 H 20 H 144/72 H 93 Mechanical Ventilator 40 12/12/23 08:00 12/12/23 08:00 12/12/23 08:00 12/12/23 08:00 12/12/23 08:00 12/12/23 08:00 12/07/23 06:00 FiO2 35 12/12/23 08:00 Oxygen Flow Rate (L/min) 40 Oxygen Delivery Method Mechanical Ventilator Weight: 97.5 kg Body Mass Index (BMI) 30.7 Intake & Output: Intake and Output for Last 24 Hours 12/10/23 12/11/23 12/12/23 23:59 23:59 23:59 Intake Total 2150.82 / 2174.97 2029.15 / 2055.12 Output Total 5500 / 5500 3375 / 3375 1450 / 1450 Balance -3349.18 / -3325.03 -1345.85 / -1319.88 569.02 / 569.02 Medical Nutrition Assessment Dietitian: Malnutrition Criteria Met Start: 12/01/23 09:36 Freq: Status: Active Protocol: Document 12/11/23 09:56 SARAHI (Rec: 12/11/23 09:56 [id number]) Nutrition Malnutrition Evidence of Malnutrition Exists Yes Malnutrition (severe): Acute Illness/Injury Evidenced By Suboptimal Energy Intake ( Severe),Weight Loss (Severe) Intake Problem Inadequate Oral Intake Etiology related to decreased ability to consume sufficient energy to meet estimated nutrient needs Signs/Symptoms as evidenced by extended NPO status x 10 days and intubation with need for enteral nutrition. Status Active Problem Clinical Problem Acute Disease or Injury Related Malnutrition Etiology severe, acute malnutrition related to inadequate energy intake d/t swallowing difficulties Signs/Symptoms as evidenced by unintentional 4% wt loss < 5 days, PO intake meeting <50% of estimated energy needs x 6 days Status Active Problem Recommendation Dietitian Recommendations/Changes NPO while intubated; Continue via OGT- Vital AF 1.2 Carloz at goal rate of 60mL/hour w/ decreased flush of 50mL H2O flush every 4 hours to provide 1728 calories, 108 g protein, and 1467mL total fluid/day. Lab / Micro Data 04/01/24 03:43 12/12/23 03:43 Labs: Laboratory Results - last 24 hr 12/11/23 11:35: POC Glucose 144 H 12/11/23 13:04: POC Glucose 115 H 12/11/23 17:37: POC Glucose 127 H 12/11/23 23:05: POC Glucose 165 H 12/12/23 03:43: WBC 12.5 H, RBC 2.98 L, Hgb 8.1 L, Hct 25.6 L, MCV 85.9, MCH 27.2, MCHC 31.6 L, RDW Std Deviation 53.8 H, RDW Coeff of Saman 22.1 H, Plt Count 680 H, MPV 11.2, Immature Gran % (Auto) 0.600, Neut % (Auto) 73.7 H, Lymph % (Auto) 14.3 L, [place] % (Auto) 8.6, Eos % (Auto) 2.6, Baso % (Auto) 0.2, Absolute Neuts (auto) 9.2 H, Absolute Lymphs (auto) 1.78, Nucleated RBC % 0.2, Differential Comment SCANNED, Anisocytosis 2+, Sodium 143, Potassium 3.5, Chloride 107, Carbon Dioxide 31.0, Anion Gap 5, BUN 56 H, Creatinine 2.69 H, Estim Creat Clear Calc 32.54, Est GFR (MDRD) Af Amer 31 L, Est GFR (MDRD) Non-Af 25 L, BUN/Creatinine Ratio 20.8 H, Glucose 257 H, Calcium 8.9, Total Creatine Kinase 37 L, Triglycerides 188, Random Vancomycin 16.1 H 12/12/23 05:12: POC Glucose 201 H 12/12/23 11:28: POC Glucose 269 H Micro: Microbiology 12/03/23 16:20 Sputum, Induced/Lukens Gram Stain - Final 12/03/23 16:20 Sputum, Induced/Lukens Respiratory Culture - Final Meth. resistant Staph. aureus Yeast, not Evy albicans 11/29/23 09:50 Blood Culture (Wb) - Right Hand Blood Culture - Final No growth in 5 days. 12/03/23 16:55 Stool Enteric Bacteriology - Final 12/03/23 16:55 Stool Clostridioides difficile (PCR) - Final 11/28/23 13:16 Blood Culture (Wb) - Left Hand Blood Culture - Final No growth in 5 days. 11/25/23 10:45 Blood Culture (Wb) - Anticubital Right Blood Culture - Final No growth in 5 days. 11/25/23 10:38 Blood Culture (Wb) - Anticubital Left Blood Culture - Final Meth. resistant Staph. aureus 11/25/23 11:45 Urine, Catheterized Urine Culture - Final Culture exhibits no growth. 11/26/23 11:26 Stool Clostridioides difficile (PCR) - Final 11/25/23 11:40 Mucosa - Nose SARS-CoV-2, Influenza & RSV (PCR) - Final ABG Data ABG results: ABG 12/12/23 06:07 Specimen Type ART Sample Site R Radial pH 7.46 H Bicarbonate Actual 29.8 H Total CO2 31 Base Excess 6 H O2 Saturation 91 L O2 % 35.0 ABG pCO2 41.8 ABG pO2 58 L Polo Test Positive Respiration Rate 16 O2 Delivery Device ET Tube Vent Mode AC Tidal Volume 450.0 POC PEEP 5 Radiography Diagnostic Testing: Radiology Impression Chest X-Ray 12/11/23 05:50 IMPRESSION: Findings are unchanged. Electronically Signed: Sacha Nieves MD at 16:52 EDT , Chest X-Ray 12/12/23 06:00 IMPRESSION: Increased right basilar infiltrate or atelectasis. No change left pleural effusion and left basilar atelectasis. Electronically Signed: Rema Jaffe MD at 8:17 EDT , Rhythm Strip Rhythm Strip: Sinus Tach Rate: 123 Ectopy: - (No pauses noted.) Physical Exam Narrative intubated no obvious distress s1s2 no murmurs lungs clear anteriorly abdomen soft, nontender Trace edema bilateral lower legs ratliff + clear yellow urine in bag Assessment & Plan Assessment/Plan (1) JULIETTE (acute kidney injury): PLAN: -JULIETTE on probable CKD stage III. Nonoliguric, hypervolemic JULIETTE likely secondary to ATN due to sepsis. Creatinine peaked 3.61 on 12/05, today SCr 2.69mg/dL. Patient has improving kidney funciton, good urine output and response on Lasix drip. Urine output around 3.4 L yesterday. Per cumulative I and O he is +16 L. 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 Normal electrolytes, no acidosis. We will continue to follow renal function trajectory -CKD stage IIIb, last creatinine prior to admission 07/23/2022 1.5 mg/dL. -Sepsis secondary to MRSA bacteremia -Acute respiratory failure, intubated
[2023-12-12] MEDS: Insulin Glargine-YFGN 100 UNIT/ML Pen 30 UNIT SC (11:59)
--- NOTE | 2023-12-12 12:35 | PN.HOSP_ITS ---
Reason for Visit Reason for Visit: Diagnoses Sepsis, unspecified organism (11/25/23) Methicillin resistant Staphylococcus aureus infection as the cause of diseases classified elsewhere (11/25/23) Essential (primary) hypertension (11/25/23) Unspecified atrial fibrillation (11/25/23) Pneumonia, unspecified organism (11/25/23) Respiratory failure, unspecified, unspecified whether with hypoxia or hypercapnia (11/25/23) Acute kidney failure, unspecified (11/25/23) Bacteremia (11/25/23) Subjective Subjective No acute events overnight. Patient seen at bedside this morning. Remains sedated and intubated. Opening eyes to voice but not following any commands. Objective Data Objective Data Vital Signs: Vital Signs Temp Pulse Resp BP Pulse Ox O2 Del Method O2 Flow Rate 98.8 F 111 H 20 H 144/72 H 93 Mechanical Ventilator 40 12/12/23 08:00 12/12/23 08:00 12/12/23 08:00 12/12/23 08:00 12/12/23 08:00 12/12/23 08:00 12/07/23 06:00 FiO2 35 12/12/23 08:00 Oxygen Flow Rate (L/min) 40 Oxygen Delivery Method Mechanical Ventilator Weight: 97.5 kg Body Mass Index (BMI) 30.7 Intake & Output: Intake and Output for Last 24 Hours 12/10/23 12/11/23 12/12/23 23:59 23:59 23:59 Intake Total 2150.82 / 2174.97 2029.15 / 2055.12 2040.47 / 2040.47 Output Total 5500 / 5500 3375 / 3375 1450 / 1450 Balance -3349.18 / -3325.03 -1345.85 / -1319.88 590.47 / 590.47 Medical Nutrition Assessment Dietitian: Malnutrition Criteria Met Start: 12/01/23 09:36 Freq: Status: Active Protocol: Document 12/11/23 09:56 SARAHI (Rec: 12/11/23 09:56 LO [id number]) Nutrition Malnutrition Evidence of Malnutrition Exists Yes Malnutrition (severe): Acute Illness/Injury Evidenced By Suboptimal Energy Intake ( Severe),Weight Loss (Severe) Intake Problem Inadequate Oral Intake Etiology related to decreased ability to consume sufficient energy to meet estimated nutrient needs Signs/Symptoms as evidenced by extended NPO status x 10 days and intubation with need for enteral nutrition. Status Active Problem Clinical Problem Acute Disease or Injury Related Malnutrition Etiology severe, acute malnutrition related to inadequate energy intake d/t swallowing difficulties Signs/Symptoms as evidenced by unintentional 4% wt loss < 5 days, PO intake meeting <50% of estimated energy needs x 6 days Status Active Problem Recommendation Dietitian Recommendations/Changes NPO while intubated; Continue via OGT- Vital AF 1.2 Carloz at goal rate of 60mL/hour w/ decreased flush of 50mL H2O flush every 4 hours to provide 1728 calories, 108 g protein, and 1467mL total fluid/day. Lab / Micro Data 12/12/23 03:43 12/12/23 03:43 Labs: Laboratory Results - last 24 hr 12/11/23 13:04: POC Glucose 115 H 12/11/23 17:37: POC Glucose 127 H 12/11/23 23:05: POC Glucose 165 H 12/12/23 03:43: WBC 12.5 H, RBC 2.98 L, Hgb 8.1 L, Hct 25.6 L, MCV 85.9, MCH 27.2, MCHC 31.6 L, RDW Std Deviation 53.8 H, RDW Coeff of Saman 22.1 H, Plt Count 680 H, MPV 11.2, Immature Gran % (Auto) 0.600, Neut % (Auto) 73.7 H, Lymph % (Auto) 14.3 L, [place] % (Auto) 8.6, Eos % (Auto) 2.6, Baso % (Auto) 0.2, Absolute Neuts (auto) 9.2 H, Absolute Lymphs (auto) 1.78, Nucleated RBC % 0.2, Differential Comment SCANNED, Anisocytosis 2+, Sodium 143, Potassium 3.5, Chloride 107, Carbon Dioxide 31.0, Anion Gap 5, BUN 56 H, Creatinine 2.69 H, Estim Creat Clear Calc 32.54, Est GFR (MDRD) Af Amer 31 L, Est GFR (MDRD) Non-Af 25 L, BUN/Creatinine Ratio 20.8 H, Glucose 257 H, Calcium 8.9, Total Creatine Kinase 37 L, Triglycerides 188, Random Vancomycin 16.1 H 12/12/23 05:12: POC Glucose 201 H 12/12/23 11:28: POC Glucose 269 H Micro: Microbiology 12/03/23 16:20 Sputum, Induced/Lukens Gram Stain - Final 12/03/23 16:20 Sputum, Induced/Lukens Respiratory Culture - Final Meth. resistant Staph. aureus Yeast, not Evy albicans 11/29/23 09:50 Blood Culture (Wb) - Right Hand Blood Culture - Final No growth in 5 days. 12/03/23 16:55 Stool Enteric Bacteriology - Final 12/03/23 16:55 Stool Clostridioides difficile (PCR) - Final 11/28/23 13:16 Blood Culture (Wb) - Left Hand Blood Culture - Final No growth in 5 days. 11/25/23 10:45 Blood Culture (Wb) - Anticubital Right Blood Culture - Final No growth in 5 days. 11/25/23 10:38 Blood Culture (Wb) - Anticubital Left Blood Culture - Final Meth. resistant Staph. aureus 11/25/23 11:45 Urine, Catheterized Urine Culture - Final Culture exhibits no growth. 11/26/23 11:26 Stool Clostridioides difficile (PCR) - Final 11/25/23 11:40 Mucosa - Nose SARS-CoV-2, Influenza & RSV (PCR) - Final ABG Data ABG results: ABG 12/12/23 06:07 Specimen Type ART Sample Site R Radial pH 7.46 H Bicarbonate Actual 29.8 H Total CO2 31 Base Excess 6 H O2 Saturation 91 L O2 % 35.0 ABG pCO2 41.8 ABG pO2 58 L Polo Test Positive Respiration Rate 16 O2 Delivery Device ET Tube Vent Mode AC Tidal Volume 450.0 POC PEEP 5 Radiography Diagnostic Testing: Radiology Impression Chest X-Ray 12/11/23 05:50 IMPRESSION: Findings are unchanged. Electronically Signed: Sacha Nieves MD at 16:52 EDT , Chest X-Ray 12/12/23 06:00 IMPRESSION: Increased right basilar infiltrate or atelectasis. No change left pleural effusion and left basilar atelectasis. Electronically Signed: Rema Jaffe MD at 8:17 EDT , Rhythm Strip Rhythm Strip: Sinus Tach Rate: 123 Ectopy: - (No pauses noted.) Physical Exam Const Constitutional Narrative: Intubated and sedated. Awakening to voice but not following commands. Obese. HEENT normocephalic, head/scalp atraumatic and nasal mucous membranes and turbinates normal Eyes EOMs intact bilaterally Chest inspection of chest normal Resp normal respiratory effort and no use of accessory muscles Resp Narrative: Intubated and mechanically ventilated. On low vent settings. Good air movement on right, diminished breath sounds on left throughout, stable from previous. Cardio regular rate, regular rhythm, no murmurs and peripheral pulses 2+ throughout GI normal to inspection, nondistended, normoactive bowel sounds, soft to palpation, non-tender and non-distended Extremity Extremity Narrative: Trace lower extremity edema noted. Skin no rashes or lesions noted Assessment & Plan Assessment/Plan (1) MRSA bacteremia: (2) Sepsis: (3) Pneumonia: (4) Respiratory failure: (5) JULIETTE (acute kidney injury): PLAN: Plan Patient is a 63-year-old male who presented to [facility] ED on 11/25/2023 with worsening shortness of breath. 1. Acute hypoxic and hypercapnic respiratory failure Initially hypoxia presumed secondary to secondary MRSA pneumonia after recent flu pneumonia. Had worsening mental status and hypoxia on 12/02 requiring intubation. She was found to be hypercapnic postintubation. This was suspected secondary to decreased respiratory drive from possible overmedication as notable below. ? Meat Service Team Member following. Remains intubated and sedated. Remains on low vent settings but per senior staff accountant is having a significant amount of secretions and continues to fail SBT's. Vent day 10 on 12/11. If he continues to fail SBT's, may need to consider trach/PEG tube placement. Continue diuresis as notable. 2. Hypotension with concern for shock, resolved; sepsis without shock secondary to MRSA bacteremia Initially presented with sepsis and found to have MRSA bacteremia presumed secondary to a MRSA pneumonia that developed post influenza pneumonia. TTE showed no valvular abnormalities. Developed hypotension after intubation and sedation, suspected that hypotension is likely secondary to sedation requirements. ? Meat Service Team Member and ID following. Hemodynamically stable, has been off Levophed since morning of 12/05. Meropenem started postintubation on 12/03, discontinued 12/07 after negative cultures. Continue vancomycin. 3. Acute metabolic encephalopathy Patient noted to have worsening mentation on 11/27 of unclear etiology. Neurology was consulted for questionable seizure activity. MRI brain negative, EEG negative. Lab workup fairly benign. Neurology suspected toxic metabolic encephalopathy that was multifactorial in setting of sepsis, pneumonia, JULIETTE, delirium and polypharmacy from sedative medications of Ativan, Haldol and DPA, as well as a poor mental status at baseline. Patient required intubation on 12/02 as noted above. ? Neurology followed. Currently intubated and sedated. Holding home Haldol and Ativan to minimize use of sedation medications per neurology recommendations. Patient awakening to voice but not purposely following commands. Weaning sedation as able. 4. JULIETTE on suspected CKD stage IIIb, improving Creatinine 2.05 on admit, baseline creatinine around 1.8-2.1. Noted to have acutely worsened creatinine to 3.08 on 11/28 which then recovered back to baseline by 12/01. However, again had worsening of creatinine to 3.27 on 12/03 with decreased urine output suspected to be secondary to ATN from sepsis. ? Nephrology following. Creatinine 2.69 on 12/11, stable from previous. Continue Lasix drip per nephrology recs. Continue to monitor daily BMP and urine output. 5. Volume overload, improving ? Patient noted to be +10 L from volume status standpoint on 12/04, secondary to heavy IV fluids administered in setting of sepsis and concern for shock as noted above. Meat Service Team Member and nephrology following as above. Diuresis limited by hypotension as noted above. Diuresing as noted above. 6. A-fib with RVR, bradycardia with sinus pauses ? Cardiology evaluated on 11/29. Patient was noted to be on high-dose beta- diogo at that time and had some pauses on monitoring 6 seconds, unclear patient was symptomatic with these pauses. Not an urgent pacemaker candidate given bacteremia. Beta-diogo discontinued. Has had improvement in heart rate and no recent sinus pauses. Continue cardiac monitoring. 7. Hypernatremia, resolved ? Nephrology following as above. Presumed secondary to dehydration. Sodium peaked at 152 on 12/02, returned to normal range by 12/05. Continue H20 with tube feeds per ICU/nutrition recs. Monitor daily BMP. 8. Acute on chronic anemia ? Known history of iron deficiency anemia, was on home iron supplement. Hemoglobin 10.5 on admit, slowly downtrending since then. Hemoglobin riky of 6.9 on , given 1 unit of packed red blood cells at that time with good improvement in hemoglobin to around 8. No active signs of bleeding. Iron studies on 12/04 showed anemia of chronic disease. Continue to monitor CBC daily. Chronic medical conditions: ? Obesity: BMI 32 on admit. Complicates hospital course, care and prognosis. ? Paranoid schizophrenia/anxiety and depression/sexual aggression: Lives in senior living. Continue home Depakote, holding home Haldol and Ativan as noted above. ? Type 2 diabetes mellitus: Home regimen of insulin glargine 35 units at night, lispro 17 units with meals, metformin 1000 mg twice daily, Jardiance 25 mg daily. Blood sugars elevated while inpatient. Continue Lantus 25 units twice daily and sliding-scale insulin every 4 hours as needed with tube feeds for now. ? Hypothyroidism: Continue home Synthroid. ? CAD/hypertension/hyperlipidemia: Continue home aspirin, statin, amlodipine. Holding home Lopressor due to bradycardia as noted above. Holding home losartan for JULIETTE. ? Tobacco abuse: Nicotine replacement therapy available as needed. DVT prophylaxis: Heparin subcu CODE STATUS: Full code, verified Expected disposition: TBD Total clinical time spent by myself addressing the patient's medical issues, reviewing all the data, and collaborating with patient's care team: 35 minutes. Charges/Coding Visit Charges Inpatient E&M: 22671 Subs Hosp L2
[2023-12-12] MEDS: fentaNYL drip 100 ML 15 MCG CONT INF ×2 (13:22→20:55)
[2023-12-12 13:28] LABS: Pathologist Review Reviewed
--- NOTE | 2023-12-12 16:37 | CASEMGMT ---
Discharge Planning Updates faxed to [facility] ELIZA Lau. Cassidy Galeano, Discharge Planning Asst.
[2023-12-12 17:42] LABS: Bedside Glucose 244 mg/dL (74-106)
[2023-12-12] MEDS: Valproic Acid 250 MG/5 ML UDC GT (21:11)
[2023-12-12] MEDS: Atorvastatin Calcium 80 MG Tablet GT (21:11)
[2023-12-12] MEDS: traZODone 100 MG Tablet GT (21:11)
[2023-12-13] VITALS (35 sets, daily range): BP systolic 84–184; BP diastolic 50–86; PULSE 63–107; RESP 13–28; TEMP 36.2–37.3; O2SAT 88–100; BMI 31.1
[2023-12-13] MEDS: Insulin Lispro 100 UNIT/ML INSULN.PEN SC ×5 (00:46→23:03)
[2023-12-13] MEDS: Insulin Glargine-YFGN 100 UNIT/ML Pen 30 UNIT SC (00:47)
[2023-12-13 01:01] LABS: Bedside Glucose 293 mg/dL (74-106)
[2023-12-13] MEDS: Propofol 10MG/Ml 1,000 MG/100 ML Bottle 17.6 MG CONT INF ×2 (02:44→10:00)
[2023-12-13] MEDS: 0.9% Saline Lock 10 ML Syringe IV ×4 (04:06→15:57)
[2023-12-13] MEDS: fentaNYL drip 100 ML 15 MCG CONT INF ×3 (04:06→19:56)
[2023-12-13 04:14] LABS: Hematocrit 23.6 % (40-54); Hemoglobin 7.4 g/dL (13.0-16.5); Mean Corp Hgb Conc 31.4 g/dL (32-36); Mean Corpuscular Hgb 26.7 pg (27.0-32.0); Mean Corpuscular Volume 85.2 fL (80-94); Mean Platelet Vol. 11.4 fl (6.2-12.0); POSITIVE MORPHOLOGY YES; Platelet Count 710 K/mm3 (150-450); RBC Distribution Width CV 22.5 % (11.6-14.6); RBC Distribution Width SD 55.9 fl (35.1-43.9); Red Blood Count 2.77 M/mm3 (4.6-6.2); White Blood Count 9.7 K/mm3 (4.4-11.0)
[2023-12-13 04:35] LABS: Anion Gap 4 (5-15); BUN 60 mg/dL (7-18); BUN/Creat Ratio 21.3 RATIO (10-20); Calcium,Total 9.1 mg/dL (8.5-10.1); Chloride 106 mmol/L (98-107); Creatinine, Serum 2.82 mg/dL (0.70-1.30); EST Glomerular Filtration Rate 24 mL/min (>60); Est Glom Filt Rate - Afr Amer 29 mL/min (>60); Estimated Creatinine Clearance 30.59 ml/min; Glucose 296 mg/dL (74-106); Sodium Level 142 mmol/L (136-145)
[2023-12-13] MEDS: CHLORHEXIDINE GLUC 2% CLOTH 1 EACH TOWELETTE TOPICAL (04:42)
[2023-12-13 05:00] LABS: ERROR RESULT FLAG YES
--- NOTE | 2023-12-13 05:54 | EKG12_ITS ---
Test Reason : CHEST PAIN Blood Pressure : / mmHG Vent. Rate : 119 BPM Atrial Rate : 119 BPM P-R Int : 150 ms QRS Dur : 086 ms QT Int : 330 ms P-R-T Axes : 042 052 247 degrees QTc Int : 464 ms Sinus tachycardia Nonspecific ST and T wave abnormality Abnormal ECG Confirmed by ZANDER JADE, CATARINA ([id number]), industrial editor TYRONE SANTIAGO ([id number]) on 12/14/2023 9:44:01 AM Referred By: FRANCIS Confirmed By:CATARINA FERMIN MD
[2023-12-13 06:15] LABS: Scan Indicated on CBC? Y/N YES- FLAGS NOTED
[2023-12-13] MEDS: Levothyroxine 50 MCG Tablet GT (06:52)
[2023-12-13] MEDS: Nystatin Powder 15gm Bottle 1 APPLIC TOPICAL ×3 (06:53→21:23)
[2023-12-13 07:10] LABS: Bedside Glucose 245 mg/dL (74-106)
--- NOTE | 2023-12-13 07:22 | PCM.PN.INT ---
Assessment & Plan Assessment/Plan (1) MRSA bacteremia: (2) Sepsis: PLAN: Plan RECOMMENDATIONS: 1. Continue assist-control mode mechanical ventilation. Wean FiO2/PEEP for saturations greater than 90%. 2. Antimicrobials per ID recommendations. 3. Lasix infusion as tolerated by hemodynamics and renal function. 4. Continue tube feeding as tolerated. 5. Continue appropriate ICU prophylaxis 6. Awaiting decision regarding goals of care from the patient's family. IMPRESSIONS: 1. Sepsis secondary to MRSA bacteremia It is suspected that the patient developed post influenza pneumonia resulting in secondary bacteremia. The patient remains on antimicrobials per ID recommendations. No vegetations were seen on TTE. The patient remains hemodynamically stable. 2. Acute combined respiratory failure The patient was ultimately intubated in the setting of acute CO2 retention. He did have evidence of MRSA pneumonia, for which he remains on antibiotics. The patient continues to have a significant amount of secretions and continues to fail spontaneous breathing trials. Plan to continue current supportive measures, while awaiting finalized goals of care decisions with the patient's family. If the patient continues to fail SBT's, tracheostomy and PEG tube placement may need to be considered. Continue ongoing attempts at diuresis as tolerated by hemodynamics and renal function, as the patient is volume overloaded for the hospitalization. 3. History of atrial fibrillation/sinus pauses/coronary artery disease Cardiology is currently following to assist with medical management. 4. History of paranoid schizophrenia/chronic kidney disease/hypertension/diabetes mellitus/hypothyroidism Complicates care, management, recovery and prognosis. Continue supportive measures as noted above along with basal and sliding scale insulin coverage. Continue tube feeding as tolerated. TIME: 32 minutes of critical care time, independent of procedures, was spent addressing the patient's sepsis, MRSA pneumonia with bacteremia, acute combined respiratory failure, sinus arrhythmia, review of all data and collaboration with care team. Subjective Subjective The patient was seen and examined at the bedside this morning. Events from the last 24 hours have been reviewed. The patient is currently afebrile, hemodynamically stable and maintaining appropriate oxygen saturations on assist-control mode mechanical ventilation with an FiO2 requirement of 40% and PEEP of 5. Today is ventilator day #11. According to the nursing staff, the patient again failed his spontaneous breathing trial this morning. He did become significantly bradycardic during his breathing trial. I did call and speak with cardiology, who indicated that they would not even consider placing a pacemaker until the patient has been cleared from a a blood culture perspective for 6 weeks. The patient is currently in normal sinus rhythm. He is currently documented to be overall net +17.4 L for the hospitalization. He remains on a continuous Lasix infusion. Hemoglobin this morning was noted to be 7.4 g/dL. Creatinine has increased some to 2.82. I did personally speak with the patient's family yesterday regarding goals of care. I explained to them that given the current duration that the patient has been on the ventilator, they will need to make a decision soon regarding the possibility of tracheostomy and PEG tube placement. They plan to come in on with a final decision regarding their desires for care. Objective Data Objective Data The patient's most recent lab work, culture data and imaging studies have all been personally reviewed. Sputum culture dated December 02 was positive for MRSA. Vital Signs: Vital Signs Temp Pulse Resp BP Pulse Ox O2 Del Method O2 Flow Rate 97.4 F L 103 H 16 184/86 H 93 Mechanical Ventilator 40 12/13/23 06:00 12/13/23 06:48 12/13/23 06:48 12/13/23 06:00 12/13/23 06:48 12/13/23 06:48 12/07/23 06:00 FiO2 50 12/13/23 06:48 Oxygen Flow Rate (L/min) 40 Oxygen Delivery Method Mechanical Ventilator Weight: 217 lb 2.485 oz Body Mass Index (BMI) 31.1 Intake & Output: Intake and Output for Last 24 Hours 12/11/23 12/12/23 12/13/23 23:59 23:59 23:59 Intake Total 2029.15 / 2055.12 3197.44 / 3280.04 701.91 / 701.91 Output Total 3375 / 3375 2450 / 2450 300 / 300 Balance -1345.85 / -1319.88 747.44 / 830.04 401.91 / 401.91 Medical Nutrition Assessment Dietitian: Malnutrition Criteria Met Start: 12/01/23 09:36 Freq: Status: Active Protocol: Document 12/11/23 09:56 SARAHI (Rec: 12/11/23 09:56 [id number]) Nutrition Malnutrition Evidence of Malnutrition Exists Yes Malnutrition (severe): Acute Illness/Injury Evidenced By Suboptimal Energy Intake ( Severe),Weight Loss (Severe) Intake Problem Inadequate Oral Intake Etiology related to decreased ability to consume sufficient energy to meet estimated nutrient needs Signs/Symptoms as evidenced by extended NPO status x 10 days and intubation with need for enteral nutrition. Status Active Problem Clinical Problem Acute Disease or Injury Related Malnutrition Etiology severe, acute malnutrition related to inadequate energy intake d/t swallowing difficulties Signs/Symptoms as evidenced by unintentional 4% wt loss < 5 days, PO intake meeting <50% of estimated energy needs x 6 days Status Active Problem Recommendation Dietitian Recommendations/Changes NPO while intubated; Continue via OGT- Vital AF 1.2 Carloz at goal rate of 60mL/hour w/ decreased flush of 50mL H2O flush every 4 hours to provide 1728 calories, 108 g protein, and 1467mL total fluid/day. Lab / Micro Data Attestation: I reviewed the patient's lab results. 12/13/23 04:10 12/13/23 04:10 Labs: Laboratory Results - last 24 hr 12/10/23 05:15: Diff Path Review Reviewed 12/12/23 03:43: Total Creatine Kinase 37 L, Triglycerides 188 12/12/23 11:28: POC Glucose 269 H 12/12/23 17:24: POC Glucose 244 H 12/13/23 00:43: POC Glucose 293 H 12/13/23 04:10: WBC 9.7, RBC 2.77 L, Hgb 7.4 L, Hct 23.6 L, MCV 85.2, MCH 26.7 L, MCHC 31.4 L, RDW Std Deviation 55.9 H, RDW Coeff of Saman 22.5 H, Plt Count 710 H, MPV 11.4, Diff Path Review May foll, Sodium 142, Potassium 4.0, Chloride 106, Carbon Dioxide 32.0, Anion Gap 4 L, BUN 60 H, Creatinine 2.82 H, Estim Creat Clear Calc 30.59, Est GFR (MDRD) Af Amer 29 L, Est GFR (MDRD) Non-Af 24 L, BUN/Creatinine Ratio 21.3 H, Glucose 296 H, Calcium 9.1 12/13/23 06:48: POC Glucose 245 H Micro: Microbiology 12/03/23 16:20 Sputum, Induced/Lukens Gram Stain - Final 12/03/23 16:20 Sputum, Induced/Lukens Respiratory Culture - Final Meth. resistant Staph. aureus Yeast, not Evy albicans 11/29/23 09:50 Blood Culture (Wb) - Right Hand Blood Culture - Final No growth in 5 days. 12/03/23 16:55 Stool Enteric Bacteriology - Final 12/03/23 16:55 Stool Clostridioides difficile (PCR) - Final 11/28/23 13:16 Blood Culture (Wb) - Left Hand Blood Culture - Final No growth in 5 days. 11/25/23 10:45 Blood Culture (Wb) - Anticubital Right Blood Culture - Final No growth in 5 days. 11/25/23 10:38 Blood Culture (Wb) - Anticubital Left Blood Culture - Final Meth. resistant Staph. aureus 11/25/23 11:45 Urine, Catheterized Urine Culture - Final Culture exhibits no growth. 11/26/23 11:26 Stool Clostridioides difficile (PCR) - Final 11/25/23 11:40 Mucosa - Nose SARS-CoV-2, Influenza & RSV (PCR) - Final ABG Data ABG results: ABG 12/12/23 06:07 Specimen Type ART Sample Site R Radial pH 7.46 H Bicarbonate Actual 29.8 H Total CO2 31 Base Excess 6 H O2 Saturation 91 L O2 % 35.0 ABG pCO2 41.8 ABG pO2 58 L Polo Test Positive Respiration Rate 16 O2 Delivery Device ET Tube Vent Mode AC Tidal Volume 450.0 POC PEEP 5 Radiography Diagnostic Testing: Radiology Impression Chest X-Ray 12/12/23 06:00 IMPRESSION: Increased right basilar infiltrate or atelectasis. No change left pleural effusion and left basilar atelectasis. Electronically Signed: Rema Jaffe MD at 8:17 EDT , Rhythm Strip Rhythm Strip: Sinus Tach Rate: 123 Ectopy: - (No pauses noted.) Physical Exam Const Constitutional Narrative: Intubated, sedated and mechanically ventilated. No ventilator dyssynchrony noted. HEENT normocephalic and head/scalp atraumatic Mouth: endotracheal tube in place and OG tube in place Eyes PERRL, EOMs intact bilaterally and conjunctivae normal Neck supple General: trachea midline Chest inspection of chest normal Resp Auscultation: diminished lung sounds Cardio regular rate and regular rhythm GI normal to inspection, nondistended, normoactive bowel sounds Extremity General Extremity: Negative for clubbing or edema Neuro Sensorium / Orientation: sedated on vent Charges/Coding Procedures Hospitalists Procedures: 52968 Critical Care 1st Hr
[2023-12-13] MEDS: Senna/Docusate Sodium 1 Tablet 2 TABLET GT ×2 (09:33→21:24)
[2023-12-13] MEDS: QUEtiapine 25 MG Tablet 50 MG GT ×2 (09:33→21:25)
[2023-12-13] MEDS: Heparin Injection (Vial) 5,000 UNIT/ML VIAL 5000 UNIT SC ×2 (09:33→21:24)
[2023-12-13] MEDS: Pantoprazole Sodium 40 MG in 0.9% Normal Saline (100mL MB+) 100 ML 330 MG IV (09:33)
[2023-12-13] MEDS: Ferrous Sulfate 300 MG/5 ML UDC GT (09:33)
[2023-12-13] MEDS: Chlorhexidine 15 ML PO ×2 (09:33→21:35)
[2023-12-13] MEDS: Valproic Acid 250 MG/5 ML UDC 500 MG GT ×2 (09:33→21:27)
[2023-12-13] MEDS: Aspirin 81 MG TAB.CHEW GT (09:33)
[2023-12-13] MEDS: MEDROXYPROGESTERONE ACETATE 10 MG TABLET GT ×2 (09:34→21:26)
[2023-12-13] MEDS: Menthol/Lanolin/Calamine/Znox 113 GM Tube 1 APPLIC TOPICAL ×2 (09:34→21:23)
[2023-12-13] MEDS: Insulin Glargine-YFGN 100 UNIT/ML Pen 35 UNIT SC ×2 (09:35→23:02)
--- NOTE | 2023-12-13 10:21 | PN.RENAL_ITS ---
Subjective Subjective Follow-up on acute kidney injury. He remains intubated, FiO2 35%, PEEP of 5. No pressors, on Lasix drip at 15 mg/h. Browning catheter is in, making good urine. Sedated with propofol and fentanyl. On tube feeds Objective Data Objective Data Vital Signs: Vital Signs Temp Pulse Resp BP Pulse Ox O2 Del Method O2 Flow Rate 97.8 F 73 16 110/61 100 Mechanical Ventilator 40 12/13/23 08:00 12/13/23 09:00 12/13/23 09:00 12/13/23 09:00 12/13/23 09:00 12/13/23 09:00 12/07/23 06:00 FiO2 50 12/13/23 09:00 Oxygen Flow Rate (L/min) 40 Oxygen Delivery Method Mechanical Ventilator Weight: 98.5 kg Body Mass Index (BMI) 31.1 Intake & Output: Intake and Output for Last 24 Hours 12/11/23 12/12/23 12/13/23 23:59 23:59 23:59 Intake Total 9.15 / 2055.12 3197.44 / 3280.04 948.55 / 948.55 Output Total 3375 / 3375 2450 / 2450 300 / 300 Balance -1345.85 / -1319.88 747.44 / 830.04 648.55 / 648.55 Medical Nutrition Assessment Dietitian: Malnutrition Criteria Met Start: 12/01/23 09:36 Freq: Status: Active Protocol: Document 12/11/23 09:56 (Rec: 12/11/23 09:56 [id number]) Nutrition Malnutrition Evidence of Malnutrition Exists Yes Malnutrition (severe): Acute Illness/Injury Evidenced By Suboptimal Energy Intake ( Severe),Weight Loss (Severe) Intake Problem Inadequate Oral Intake Etiology related to decreased ability to consume sufficient energy to meet estimated nutrient needs Signs/Symptoms as evidenced by extended NPO status x 10 days and intubation with need for enteral nutrition. Status Active Problem Clinical Problem Acute Disease or Injury Related Malnutrition Etiology severe, acute malnutrition related to inadequate energy intake d/t swallowing difficulties Signs/Symptoms as evidenced by unintentional 4% wt loss < 5 days, PO intake meeting <50% of estimated energy needs x 6 days Status Active Problem Recommendation Dietitian Recommendations/Changes NPO while intubated; Continue via OGT- Vital AF 1.2 Carloz at goal rate of 60mL/hour w/ decreased flush of 50mL H2O flush every 4 hours to provide 1728 calories, 108 g protein, and 1467mL total fluid/day. Lab / Micro Data Attestation: I reviewed the patient's lab results. 12/13/23 04:10 12/13/23 04:10 Labs: Laboratory Results - last 24 hr 12/10/23 05:15: Diff Path Review Reviewed 12/12/23 11:28: POC Glucose 269 H 12/12/23 17:24: POC Glucose 244 H 12/13/23 00:43: POC Glucose 293 H 12/13/23 04:10: WBC 9.7, RBC 2.77 L, Hgb 7.4 L, Hct 23.6 L, MCV 85.2, MCH 26.7 L , MCHC 31.4 L, RDW Std Deviation 55.9 H, RDW Coeff of Saman 22.5 H, Plt Count 710 H, MPV 11.4, Diff Path Review January, Sodium 142, Potassium 4.0, Chloride 106, Carbon Dioxide 32.0, Anion Gap 4 L, BUN 60 H, Creatinine 2.82 H, Estim Creat Clear Calc 30.59, Est GFR (MDRD) Af Amer 29 L, Est GFR (MDRD) Non-Af 24 L, BUN/Creatinine Ratio 21.3 H, Glucose 296 H, Calcium 9.1 12/13/23 06:48: POC Glucose 245 H Micro: Microbiology 12/03/23 16:20 Sputum, Induced/Lukens Gram Stain - Final 12/03/23 16:20 Sputum, Induced/Lukens Respiratory Culture - Final Meth. resistant Staph. aureus Yeast, not Evy albicans 11/29/23 09:50 Blood Culture (Wb) - Right Hand Blood Culture - Final No growth in 5 days. 12/03/23 16:55 Stool Enteric Bacteriology - Final 12/03/23 16:55 Stool Clostridioides difficile (PCR) - Final 11/28/23 13:16 Blood Culture (Wb) - Left Hand Blood Culture - Final No growth in 5 days. 11/25/23 10:45 Blood Culture (Wb) - Anticubital Right Blood Culture - Final No growth in 5 days. 11/25/23 10:38 Blood Culture (Wb) - Anticubital Left Blood Culture - Final Meth. resistant Staph. aureus 11/25/23 11:45 Urine, Catheterized Urine Culture - Final Culture exhibits no growth. 11/26/23 11:26 Stool Clostridioides difficile (PCR) - Final 11/25/23 11:40 Mucosa - Nose SARS-CoV-2, Influenza & RSV (PCR) - Final Rhythm Strip Rhythm Strip: Sinus Tach Rate: 123 Ectopy: - (No pauses noted.) Physical Exam Const average body habitus General Appearance: well developed and patient mechanically ventilated HEENT normocephalic Head and Scalp: atraumatic Neck no lymphadenopathy Cardio regular rate GI Palpation: soft and no hepatosplenomegaly Bladder / Kidney Exam: catheter in place Skin no rashes or lesions noted Assessment & Plan Assessment/Plan (1) JULIETTE (acute kidney injury): PLAN: Creatinine has been improving up until today, it bumped up a little bit to 2.8, with great urine output. His edema is definitely better, so I think it is reasonable to slow down diuresis a little bit. No renal replacement therapy is indicated
[2023-12-13 11:47] LABS: Bedside Glucose 260 mg/dL (74-106)
--- NOTE | 2023-12-13 12:09 | PCM.PN.HOSP ---
Reason for Visit Reason for Visit: Diagnoses Sepsis, unspecified organism (11/25/23) Methicillin resistant Staphylococcus aureus infection as the cause of diseases classified elsewhere (11/25/23) Essential (primary) hypertension (11/25/23) Unspecified atrial fibrillation (11/25/23) Pneumonia, unspecified organism (11/25/23) Respiratory failure, unspecified, unspecified whether with hypoxia or hypercapnia (11/25/23) Acute kidney failure, unspecified (11/25/23) Bacteremia (11/25/23) Subjective Subjective No acute overnight. Patient seen at this morning. Remains intubated and sedated, opening eyes to voice but not following commands, similar to previous days. Objective Data Objective Data Vital Signs: Vital Signs Temp Pulse Resp BP Pulse Ox O2 Del Method O2 Flow Rate 98.0 F 69 16 130/67 H 96 Mechanical Ventilator 40 12/13/23 10:00 12/13/23 11:54 12/13/23 11:54 12/13/23 10:00 12/13/23 11:54 12/13/23 10:00 12/07/23 06:00 FiO2 30 12/13/23 11:54 Oxygen Flow Rate (L/min) 40 Oxygen Delivery Method Mechanical Ventilator Weight: 98.5 kg Body Mass Index (BMI) 31.1 Intake & Output: Intake and Output for Last 24 Hours 12/11/23 12/12/23 12/13/23 23:59 23:59 23:59 Intake Total 2029.15 / 2055.12 3197.44 / 3280.04 1311.00 / 1311.00 Output Total 3375 / 3375 2450 / 2450 1000 / 1000 Balance -1345.85 / -1319.88 747.44 / 830.04 311.00 / 311.00 Medical Nutrition Assessment Dietitian: Malnutrition Criteria Met Start: 12/01/23 09:36 Freq: Status: Active Protocol: Document 12/11/23 09:56 SARAHI (Rec: 12/11/23 09:56 [id number]) Nutrition Malnutrition Evidence of Malnutrition Exists Yes Malnutrition (severe): Acute Illness/Injury Evidenced By Suboptimal Energy Intake ( Severe),Weight Loss (Severe) Intake Problem Inadequate Oral Intake Etiology related to decreased ability to consume sufficient energy to meet estimated nutrient needs Signs/Symptoms as evidenced by extended NPO status x 10 days and intubation with need for enteral nutrition. Status Active Problem Clinical Problem Acute Disease or Injury Related Malnutrition Etiology severe, acute malnutrition related to inadequate energy intake d/t swallowing difficulties Signs/Symptoms as evidenced by unintentional 4% wt loss < 5 days, PO intake meeting <50% of estimated energy needs x 6 days Status Active Problem Recommendation Dietitian Recommendations/Changes NPO while intubated; Continue via OGT- Vital AF 1.2 Carloz at goal rate of 60mL/hour w/ decreased flush of 50mL H2O flush every 4 hours to provide 1728 calories, 108 g protein, and 1467mL total fluid/day. Lab / Micro Data 12/13/23 04:10 12/13/23 04:10 Labs: Laboratory Results - last 24 hr 12/10/23 05:15: Diff Path Review Reviewed 12/12/23 17:24: POC Glucose 244 H 12/13/23 00:43: POC Glucose 293 H 12/13/23 04:10: WBC 9.7, RBC 2.77 L, Hgb 7.4 L, Hct 23.6 L, MCV 85.2, MCH 26.7 L, MCHC 31.4 L, RDW Std Deviation 55.9 H, RDW Coeff of Saman 22.5 H, Plt Count 710 H, MPV 11.4, Diff Path Review January, Sodium 142, Potassium 4.0, Chloride 106, Carbon Dioxide 32.0, Anion Gap 4 L, BUN 60 H, Creatinine 2.82 H, Estim Creat Clear Calc 30.59, Est GFR (MDRD) Af Amer 29 L, Est GFR (MDRD) Non-Af 24 L, BUN/Creatinine Ratio 21.3 H, Glucose 296 H, Calcium 9.1 12/13/23 06:48: POC Glucose 245 H 12/13/23 11:30: POC Glucose 260 H Micro: Microbiology 12/03/23 16:20 Sputum, Induced/Lukens Gram Stain - Final 12/03/23 16:20 Sputum, Induced/Lukens Respiratory Culture - Final Meth. resistant Staph. aureus Yeast, not Evy albicans 11/29/23 09:50 Blood Culture (Wb) - Right Hand Blood Culture - Final No growth in 5 days. 12/03/23 16:55 Stool Enteric Bacteriology - Final 12/03/23 16:55 Stool Clostridioides difficile (PCR) - Final 11/28/23 13:16 Blood Culture (Wb) - Left Hand Blood Culture - Final No growth in 5 days. 11/25/23 10:45 Blood Culture (Wb) - Anticubital Right Blood Culture - Final No growth in 5 days. 11/25/23 10:38 Blood Culture (Wb) - Anticubital Left Blood Culture - Final Meth. resistant Staph. aureus 11/25/23 11:45 Urine, Catheterized Urine Culture - Final Culture exhibits no growth. 11/26/23 11:26 Stool Clostridioides difficile (PCR) - Final 11/25/23 11:40 Mucosa - Nose SARS-CoV-2, Influenza & RSV (PCR) - Final Rhythm Strip Rhythm Strip: Sinus Tach Rate: 123 Ectopy: - (No pauses noted.) Physical Exam Const Constitutional Narrative: Intubated and sedated. Awakening to voice but not following commands. Obese. HEENT normocephalic, head/scalp atraumatic and nasal mucous membranes and turbinates normal Eyes EOMs intact bilaterally Chest inspection of chest normal Resp normal respiratory effort and no use of accessory muscles Resp Narrative: Intubated and mechanically ventilated. On low vent settings. Good air movement on right, diminished breath sounds on left throughout, stable from previous. Cardio regular rate, regular rhythm, no murmurs and peripheral pulses 2+ throughout GI normal to inspection, nondistended, normoactive bowel sounds, soft to palpation, non-tender and non-distended Extremity Extremity Narrative: Trace lower extremity edema noted. Skin no rashes or lesions noted Assessment & Plan Assessment/Plan (1) MRSA bacteremia: (2) Sepsis: (3) Pneumonia: (4) Respiratory failure: (5) JULIETTE (acute kidney injury): PLAN: Plan Patient is a 63-year-old male who presented to [facility] ED on 11/25/2023 with worsening shortness of breath. 1. Acute hypoxic and hypercapnic respiratory failure Initially hypoxia presumed secondary to secondary MRSA pneumonia after recent flu pneumonia. Had worsening mental status and hypoxia on 12/02 requiring intubation. She was found to be hypercapnic postintubation. This was suspected secondary to decreased respiratory drive from possible overmedication as notable below. ? Info Print Press Operator following. Remains intubated and sedated. Remains on low vent settings but per quality assurance monitor is having a significant amount of secretions and continues to fail SBT's. Vent day 11 on 12/12. If he continues to fail SBT's, may need to consider trach/PEG tube placement. Continue diuresis as notable. 2. Hypotension with concern for shock, resolved; sepsis without shock secondary to MRSA bacteremia Initially presented with sepsis and found to have MRSA bacteremia presumed secondary to a MRSA pneumonia that developed post influenza pneumonia. TTE showed no valvular abnormalities. Developed hypotension after intubation and sedation, suspected that hypotension is likely secondary to sedation requirements. ? Info Print Press Operator and ID following. Hemodynamically stable, has been off Levophed since morning of 12/05. Meropenem started postintubation on 12/03, discontinued 12/07 after negative cultures. Continue vancomycin. 3. Acute metabolic encephalopathy Patient noted to have worsening mentation on 11/27 of unclear etiology. Neurology was consulted for questionable seizure activity. MRI brain negative, EEG negative. Lab workup fairly benign. Neurology suspected toxic metabolic encephalopathy that was multifactorial in setting of sepsis, pneumonia, JULIETTE, delirium and polypharmacy from sedative medications of Ativan, Haldol and DPA, as well as a poor mental status at baseline. Patient required intubation on 12/02 as noted above. ? Neurology followed. Currently intubated and sedated. Holding home Haldol and Ativan to minimize use of sedation medications per neurology recommendations. Patient awakening to voice but not purposely following commands. Weaning sedation as able. 4. JULIETTE on suspected CKD stage IIIb, improving Creatinine 2.05 on admit, baseline creatinine around 1.8-2.1. Noted to have acutely worsened creatinine to 3.08 on 11/28 which then recovered back to baseline by 12/01. However, again had worsening of creatinine to 3.27 on 12/03 with decreased urine output suspected to be secondary to ATN from sepsis. ? Nephrology following. Finally starting to show signs of contraction on 12/12, transitioned off lasix drip to IV lasix 40 mg every 8 hours. Continue to monitor daily BMP and urine output. 5. Volume overload, improving ? Patient noted to be +10 L from volume status standpoint on 12/04, secondary to heavy IV fluids administered in setting of sepsis and concern for shock as noted above. Info Print Press Operator and nephrology following as above. Diuresing as noted above. 6. A-fib with RVR, bradycardia with sinus pauses ? Cardiology evaluated on 11/29. Patient was noted to be on high-dose beta-diogo at that time and had some pauses on monitoring 6 seconds, unclear patient was symptomatic with these pauses. Not an urgent pacemaker candidate given bacteremia. Beta-diogo discontinued. Has had improvement in heart rate and no recent sinus pauses. Continue cardiac monitoring. 7. Hypernatremia, resolved ? Nephrology following as above. Presumed secondary to dehydration. Sodium peaked at 152 on 12/02, returned to normal range by 12/05. Continue H20 with tube feeds per ICU/nutrition recs. Monitor daily BMP. 8. Acute on chronic anemia ? Known history of iron deficiency anemia, was on home iron supplement. Hemoglobin 10.5 on admit, slowly downtrending since then. Hemoglobin riky of 6.9 on , given 1 unit of packed red blood cells at that time with good improvement in hemoglobin to around 8. No active signs of bleeding. Iron studies on 12/04 showed anemia of chronic disease. Continue to monitor CBC daily. Chronic medical conditions: ? Obesity: BMI 32 on admit. Complicates hospital course, care and prognosis. ? Paranoid schizophrenia/anxiety and depression/sexual aggression: Lives in prison. Continue home Depakote, holding home Haldol and Ativan as noted above. ? Type 2 diabetes mellitus: Home regimen of insulin glargine 35 units at night, lispro 17 units with meals, metformin 1000 mg twice daily, Jardiance 25 mg daily. Blood sugars elevated while inpatient. Continue Lantus 25 units twice daily and sliding-scale insulin every 4 hours as needed with tube feeds for now. ? Hypothyroidism: Continue home Synthroid. ? CAD/hypertension/hyperlipidemia: Continue home aspirin, statin, amlodipine. Holding home Lopressor due to bradycardia as noted above. Holding home losartan for JULIETTE. ? Tobacco abuse: Nicotine replacement therapy available as needed. DVT prophylaxis: Heparin subcu CODE STATUS: Full code, verified Expected disposition: TBD Total clinical time spent by myself addressing the patient's medical issues, reviewing all the data, and collaborating with patient's care team: 35 minutes. Charges/Coding Visit Charges Inpatient E&M: 20550 Subs Hosp L2
[2023-12-13 13:05] LABS: Pathologist Review Reviewed
[2023-12-13] MEDS: Vital AF 1.2 Cal Liquid 1,000 ML 60 ML GT (14:12)
[2023-12-13] MEDS: Propofol 10MG/Ml 1,000 MG/100 ML Bottle 14.6 MG CONT INF ×2 (15:56→23:10)
[2023-12-13 18:39] LABS: Bedside Glucose 179 mg/dL (74-106)
[2023-12-13] MEDS: Atorvastatin Calcium 80 MG Tablet GT (21:25)
[2023-12-13] MEDS: traZODone 100 MG Tablet GT (21:25)
[2023-12-13] MEDS: Valproic Acid 250 MG/5 ML UDC GT (21:28)
[2023-12-13] MEDS: Furosemide 40 MG/4 ML Vial IV (21:34)
[2023-12-13 23:45] LABS: Bedside Glucose 203 mg/dL (74-106)
[2023-12-14] VITALS (37 sets, daily range): BP systolic 101–155; BP diastolic 53–82; PULSE 56–111; RESP 14–23; TEMP 36.6–37.8; O2SAT 85–100; BMI 31.2
[2023-12-14] MEDS: fentaNYL drip 100 ML 15 MCG CONT INF (03:36)
[2023-12-14 03:54] LABS: Hematocrit 25.4 % (40-54); Hemoglobin 8.3 g/dL (13.0-16.5); Mean Corp Hgb Conc 32.7 g/dL (32-36); Mean Corpuscular Hgb 28.1 pg (27.0-32.0); Mean Corpuscular Volume 86.1 fL (80-94); Mean Platelet Vol. 10.7 fl (6.2-12.0); POSITIVE COUNT YES; POSITIVE MORPHOLOGY YES; RBC Distribution Width CV 22.4 % (11.6-14.6); Red Blood Count 2.95 M/mm3 (4.6-6.2)
[2023-12-14 04:07] LABS: Anion Gap 4 (5-15); BUN 62 mg/dL (7-18); BUN/Creat Ratio 21.1 RATIO (10-20); Calcium,Total 9.3 mg/dL (8.5-10.1); Chloride 106 mmol/L (98-107); Creatinine, Serum 2.94 mg/dL (0.70-1.30); EST Glomerular Filtration Rate 23 mL/min (>60); Est Glom Filt Rate - Afr Amer 28 mL/min (>60); Estimated Creatinine Clearance 29.54 ml/min; Glucose 199 mg/dL (74-106); Potassium 3.8 mmol/L (3.5-5.1); Sodium Level 144 mmol/L (136-145)
[2023-12-14 04:08] LABS: Vancomycin, Random Level 15.6 ug/mL (0.0-15.0)
--- NOTE | 2023-12-14 04:24 | PHA.PHARE_ITS ---
Consult Antibiotic Management Pharmacy has been consulted to manage selected antibiotic: Vancomycin Type of Intervention Type of Consult: Follow-up Suspected Infection Suspected Infection: Pneumonia Labs Labs: Sodium 144 mmol/L (136-145) 12/14/23 03:40 Potassium 3.8 mmol/L (3.5-5.1) 12/14/23 03:40 Chloride 106 mmol/L (98-107) 12/14/23 03:40 Carbon Dioxide 34.0 mmol/L (21.0-32.0) H 12/14/23 03:40 Anion Gap 4 (5-15) L 12/14/23 03:40 BUN 62 mg/dL (7-18) H 12/14/23 03:40 Creatinine 2.94 mg/dL (0.70-1.30) H 12/14/23 03:40 Est GFR (MDRD) Af Amer 28 mL/min (>60) L 12/14/23 03:40 Est GFR (MDRD) Non-Af 23 mL/min (>60) L 12/14/23 03:40 BUN/Creatinine Ratio 21.1 RATIO (10-20) H 12/14/23 03:40 Glucose 199 mg/dL (74-106) H 12/14/23 03:40 Vancomycin Trough 23.2 ug/mL (5.0-15.0) H 12/07/23 06:38 Random Vancomycin 15.6 ug/mL (0.0-15.0) H 12/14/23 03:40 Microbiology Microbiology: Microbiology 12/03/23 16:20 Sputum, Induced/Lukens Gram Stain - Final 12/03/23 16:20 Sputum, Induced/Lukens Respiratory Culture - Final Meth. resistant Staph. aureus Yeast, not Evy albicans 11/29/23 09:50 Blood Culture (Wb) - Right Hand Blood Culture - Final No growth in 5 days. 12/03/23 16:55 Stool Enteric Bacteriology - Final 12/03/23 16:55 Stool Clostridioides difficile (PCR) - Final 11/28/23 13:16 Blood Culture (Wb) - Left Hand Blood Culture - Final No growth in 5 days. 11/25/23 10:45 Blood Culture (Wb) - Anticubital Right Blood Culture - Final No growth in 5 days. 11/25/23 10:38 Blood Culture (Wb) - Anticubital Left Blood Culture - Final Meth. resistant Staph. aureus 11/25/23 11:45 Urine, Catheterized Urine Culture - Final Culture exhibits no growth. 11/26/23 11:26 Stool Clostridioides difficile (PCR) - Final 11/25/23 11:40 Mucosa - Nose SARS-CoV-2, Influenza & RSV (PCR) - Final Dosing Weight Weight used for dosin.9 kg Estimated Creatinine Clearance Estimated Creatinine Clearance: 29.5 Goal Trough Goal Trough: 15-20 mcg/mL Pharmacy Plan for Drug Dosing Pharmacy Plan for Drug Dosing: Random vancomycin level was 15.6. This was drawn approximately 42.3hrs post-d ose. The last two 500mg doses had been given 48hrs apart and have kept the vanco levels in range (15-20mcg/ml). Renal status has remained consistent. Per aminoglycoside dosing calculator, a dose of 1000mg q72h will give an estimated trough level of 17.6. Will initiate today & draw a trough level in three days. Pharmacy Service will continue to monitor and adjust dosing as required. Follow-Up Labs Follow-Up Labs: Trough: Vancomycin Date/Time Labs Ordered Labs to be done on [date and time ordered]: 12/17/23 @2352
[2023-12-14 04:25] LABS: Platelet Count 774 K/mm3 (150-450); Scan Indicated on CBC? Y/N YES- FLAGS NOTED
[2023-12-14 05:13] LABS: Differential Comment SCANNED
[2023-12-14] MEDS: Furosemide 40 MG/4 ML Vial IV ×2 (05:31→20:40)
[2023-12-14] MEDS: Insulin Lispro 100 UNIT/ML INSULN.PEN SC (05:31)
[2023-12-14] MEDS: Levothyroxine 50 MCG Tablet GT (05:31)
[2023-12-14] MEDS: Nystatin Powder 15gm Bottle 1 APPLIC TOPICAL ×3 (05:32→20:41)
--- NOTE | 2023-12-14 06:48 | PCM.PN.INT ---
Assessment & Plan Assessment/Plan (1) MRSA bacteremia: (2) Sepsis: PLAN: Plan RECOMMENDATIONS: 1. Continue assist-control mode mechanical ventilation. Wean FiO2/PEEP for saturations greater than 90%. 2. Antimicrobials per ID recommendations. 3. Diuresis as tolerated by hemodynamics and renal function. 4. Continue tube feeding as tolerated. 5. Continue appropriate ICU prophylaxis 6. Awaiting decision regarding goals of care from the patient's family. 7. Continue daily spontaneous breathing trials. IMPRESSIONS: 1. Sepsis secondary to MRSA bacteremia It is suspected that the patient developed post influenza pneumonia resulting in secondary bacteremia. The patient remains on antimicrobials per ID recommendations. No vegetations were seen on TTE. The patient remains hemodynamically stable. 2. Acute combined respiratory failure The patient was ultimately intubated in the setting of acute CO2 retention. He did have evidence of MRSA pneumonia, for which he remains on antibiotics. The patient continues to have a significant amount of secretions and continues to fail spontaneous breathing trials. Plan to continue current supportive measures, while awaiting finalized goals of care decisions with the patient's family. If the patient continues to fail SBT's, tracheostomy and PEG tube placement may need to be considered. Continue ongoing attempts at diuresis as tolerated by hemodynamics and renal function, as the patient is volume overloaded for the hospitalization. 3. History of atrial fibrillation/sinus pauses/coronary artery disease Cardiology is currently following to assist with medical management. 4. History of paranoid schizophrenia/chronic kidney disease/hypertension/diabetes mellitus/hypothyroidism Complicates care, management, recovery and prognosis. Continue supportive measures as noted above along with basal and sliding scale insulin coverage. Continue tube feeding as tolerated. TIME: 31 minutes of critical care time, independent of procedures, was spent addressing the patient's sepsis, MRSA pneumonia with bacteremia, acute combined respiratory failure, sinus arrhythmia, review of all data and collaboration with care team. Subjective Subjective The patient was seen and examined at the bedside this morning. Events from the last 24 hours have been reviewed. The patient is currently afebrile, hemodynamically stable and maintaining appropriate oxygen saturations on assist control mode of mechanical ventilation with an FiO2 requirement of 40%. The patient again failed his spontaneous breathing trial this morning. Today is ventilator day #12. Nursing staff reports that secretions are still an issue. The patient is documented to be overall net +17.9 L for the hospitalization. Creatinine has increased to 2.94. The patient was transition from a continuous Lasix infusion to IV Lasix every 8 hours yesterday. Objective Data Objective Data The patient's most recent lab work, culture data and imaging studies have all been personally reviewed. Sputum culture dated December 02 was positive for MRSA. Vital Signs: Vital Signs Temp Pulse Resp BP Pulse Ox O2 Del Method O2 Flow Rate 98 F 102 H 20 H 144/82 H 94 Mechanical Ventilator 40 12/14/23 06:00 12/14/23 06:00 12/14/23 06:00 12/14/23 06:00 12/14/23 06:00 12/14/23 06:00 12/07/23 06:00 FiO2 40 12/14/23 06:00 Oxygen Flow Rate (L/min) 40 Oxygen Delivery Method Mechanical Ventilator Weight: 218 lb 0.595 oz Body Mass Index (BMI) 31.2 Intake & Output: Intake and Output for Last 24 Hours 12/12/23 12/13/23 12/14/23 23:59 23:59 23:59 Intake Total 3197.44 / 3280.04 2139.95 / 2348.60 1063.05 / 1063.05 Output Total 2450 / 2450 1625 / 1950 675 / 675 Balance 747.44 / 830.04 514.95 / 398.60 388.05 / 388.05 Medical Nutrition Assessment Dietitian: Malnutrition Criteria Met Start: 12/01/23 09:36 Freq: Status: Active Protocol: Document 12/11/23 09:56 (Rec: 12/11/23 09:56 [id number]) Nutrition Malnutrition Evidence of Malnutrition Exists Yes Malnutrition (severe): Acute Illness/Injury Evidenced By Suboptimal Energy Intake ( Severe),Weight Loss (Severe) Intake Problem Inadequate Oral Intake Etiology related to decreased ability to consume sufficient energy to meet estimated nutrient needs Signs/Symptoms as evidenced by extended NPO status x 10 days and intubation with need for enteral nutrition. Status Active Problem Clinical Problem Acute Disease or Injury Related Malnutrition Etiology severe, acute malnutrition related to inadequate energy intake d/t swallowing difficulties Signs/Symptoms as evidenced by unintentional 4% wt loss < 5 days, PO intake meeting <50% of estimated energy needs x 6 days Status Active Problem Recommendation Dietitian Recommendations/Changes NPO while intubated; Continue via OGT- Vital AF 1.2 Carloz at goal rate of 60mL/hour w/ decreased flush of 50mL H2O flush every 4 hours to provide 1728 calories, 108 g protein, and 1467mL total fluid/day. Lab / Micro Data Attestation: I reviewed the patient's lab results. 12/14/23 03:40 12/14/23 03:40 Labs: Laboratory Results - last 24 hr 12/13/23 04:10: Diff Path Review Reviewed 12/13/23 06:48: POC Glucose 245 H 12/13/23 11:30: POC Glucose 260 H 12/13/23 18:19: POC Glucose 179 H 12/13/23 23:01: POC Glucose 203 H 12/14/23 03:40: WBC 11.0, RBC 2.95 L, Hgb 8.3 L, Hct 25.4 L, MCV 86.1, MCH 28.1, MCHC 32.7, RDW Std Deviation 60.0 H, RDW Coeff of Saman 22.4 H, Plt Count 774 H*, MPV 10.7, Differential Comment SCANNED, Diff Path Review May , Sodium 144, Potassium 3.8, Chloride 106, Carbon Dioxide 34.0 H, Anion Gap 4 L, BUN 62 H, Creatinine 2.94 H, Estim Creat Clear Calc 29.54, Est GFR (MDRD) Af Amer 28 L, Est GFR (MDRD) Non-Af 23 L, BUN/Creatinine Ratio 21.1 H, Glucose 199 H, Calcium 9.3, Random Vancomycin 15.6 H Micro: Microbiology 12/03/23 16:20 Sputum, Induced/Lukens Gram Stain - Final 12/03/23 16:20 Sputum, Induced/Lukens Respiratory Culture - Final Meth. resistant Staph. aureus Yeast, not Evy albicans 11/29/23 09:50 Blood Culture (Wb) - Right Hand Blood Culture - Final No growth in 5 days. 12/03/23 16:55 Stool Enteric Bacteriology - Final 12/03/23 16:55 Stool Clostridioides difficile (PCR) - Final 11/28/23 13:16 Blood Culture (Wb) - Left Hand Blood Culture - Final No growth in 5 days. 11/25/23 10:45 Blood Culture (Wb) - Anticubital Right Blood Culture - Final No growth in 5 days. 11/25/23 10:38 Blood Culture (Wb) - Anticubital Left Blood Culture - Final Meth. resistant Staph. aureus 11/25/23 11:45 Urine, Catheterized Urine Culture - Final Culture exhibits no growth. 11/26/23 11:26 Stool Clostridioides difficile (PCR) - Final 11/25/23 11:40 Mucosa - Nose SARS-CoV-2, Influenza & RSV (PCR) - Final ABG Data ABG results: ABG 12/12/23 06:07 Specimen Type ART Sample Site R Radial pH 7.46 H Bicarbonate Actual 29.8 H Total CO2 31 Base Excess 6 H O2 Saturation 91 L O2 % 35.0 ABG pCO2 41.8 ABG pO2 58 L Polo Test Positive Respiration Rate 16 O2 Delivery Device ET Tube Vent Mode AC Tidal Volume 450.0 POC PEEP 5 Radiography Diagnostic Testing: Radiology Impression Chest X-Ray 12/12/23 06:00 IMPRESSION: Increased right basilar infiltrate or atelectasis. No change left pleural effusion and left basilar atelectasis. Electronically Signed: Rema Jaffe MD at 8:17 EDT , Rhythm Strip Rhythm Strip: Sinus Tach Rate: 123 Ectopy: - (No pauses noted.) Physical Exam Const Constitutional Narrative: Intubated, sedated and mechanically ventilated. No ventilator dyssynchrony noted. HEENT normocephalic and head/scalp atraumatic Mouth: endotracheal tube in place and OG tube in place Eyes PERRL, EOMs intact bilaterally and conjunctivae normal Neck supple General: trachea midline Chest inspection of chest normal Resp Effort and Inspection: tachypneic Auscultation: diminished lung sounds Cardio S1 normal heart sound and S2 normal heart sound Rate: tachycardic GI normal to inspection, nondistended, normoactive bowel sounds Extremity General Extremity: Negative for clubbing or edema Neuro Sensorium / Orientation: sedated on vent Charges/Coding Procedures Hospitalists Procedures: 06366 Critical Care 1st Hr
[2023-12-14] MEDS: Propofol 10MG/Ml 1,000 MG/100 ML Bottle 14.6 MG CONT INF (07:13)
[2023-12-14] MEDS: QUEtiapine 25 MG Tablet 50 MG GT ×2 (09:56→20:39)
[2023-12-14] MEDS: Aspirin 81 MG TAB.CHEW GT (09:56)
[2023-12-14] MEDS: CHLORHEXIDINE GLUC 2% CLOTH 1 EACH TOWELETTE TOPICAL ×2 (09:57→20:39)
[2023-12-14] MEDS: Chlorhexidine 15 ML PO ×2 (09:57→20:40)
[2023-12-14] MEDS: Heparin Injection (Vial) 5,000 UNIT/ML VIAL 5000 UNIT SC ×2 (09:57→20:40)
[2023-12-14] MEDS: Menthol/Lanolin/Calamine/Znox 113 GM Tube 1 APPLIC TOPICAL ×2 (09:57→20:41)
[2023-12-14] MEDS: Valproic Acid 250 MG/5 ML UDC 500 MG GT ×2 (09:57→20:39)
[2023-12-14] MEDS: Pantoprazole Sodium 40 MG in 0.9% Normal Saline (100mL MB+) 100 ML 330 MG IV (10:04)
[2023-12-14] MEDS: Vital AF 1.2 Cal Liquid 1,000 ML 60 ML GT (10:23)
[2023-12-14] MEDS: Vancomycin IV 1,000 MG/200 ML BAG 200 MG IV (10:27)
[2023-12-14] MEDS: Propofol 10MG/Ml 1,000 MG/100 ML Bottle 23.7 MG CONT INF (11:14)
[2023-12-14 12:00] LABS: Bedside Glucose 100 mg/dL (74-106)
--- NOTE | 2023-12-14 12:20 | PCM.PN.HOSP ---
Reason for Visit Reason for Visit: Diagnoses Sepsis, unspecified organism (11/25/23) Methicillin resistant Staphylococcus aureus infection as the cause of diseases classified elsewhere (11/25/23) Essential (primary) hypertension (11/25/23) Unspecified atrial fibrillation (11/25/23) Pneumonia, unspecified organism (11/25/23) Respiratory failure, unspecified, unspecified whether with hypoxia or hypercapnia (11/25/23) Acute kidney failure, unspecified (11/25/23) Bacteremia (11/25/23) Subjective Subjective No acute events overnight. Patient seen at bedside this morning. Remains intubated and sedated, opening eyes to voice but not following any commands. Similar to previous days. Objective Data Objective Data Vital Signs: Vital Signs Temp Pulse Resp BP Pulse Ox O2 Del Method O2 Flow Rate 99.5 F H 89 16 135/66 H 93 Mechanical Ventilator 40 12/14/23 11:00 12/14/23 11:17 12/14/23 11:17 12/14/23 11:00 12/14/23 11:17 12/14/23 11:00 12/07/23 06:00 FiO2 40 12/14/23 11:17 Oxygen Flow Rate (L/min) 40 Oxygen Delivery Method Mechanical Ventilator Weight: 98.9 kg Body Mass Index (BMI) 31.2 Intake & Output: Intake and Output for Last 24 Hours 12/12/23 12/13/23 12/14/23 23:59 23:59 23:59 Intake Total 3197.44 / 3280.04 2139.95 / 2348.60 1677.99 / 1677.99 Output Total 2450 / 2450 1625 / 1950 1475 / 1475 Balance 747.44 / 830.04 514.95 / 398.60 202.99 / 202.99 Medical Nutrition Assessment Dietitian: Malnutrition Criteria Met Start: 12/01/23 09:36 Freq: Status: Active Protocol: Document 12/11/23 09:56 SARAHI (Rec: 12/11/23 09:56 [id number]) Nutrition Malnutrition Evidence of Malnutrition Exists Yes Malnutrition (severe): Acute Illness/Injury Evidenced By Suboptimal Energy Intake ( Severe),Weight Loss (Severe) Intake Problem Inadequate Oral Intake Etiology related to decreased ability to consume sufficient energy to meet estimated nutrient needs Signs/Symptoms as evidenced by extended NPO status x 10 days and intubation with need for enteral nutrition. Status Active Problem Clinical Problem Acute Disease or Injury Related Malnutrition Etiology severe, acute malnutrition related to inadequate energy intake d/t swallowing difficulties Signs/Symptoms as evidenced by unintentional 4% wt loss < 5 days, PO intake meeting <50% of estimated energy needs x 6 days Status Active Problem Recommendation Dietitian Recommendations/Changes NPO while intubated; Continue via OGT- Vital AF 1.2 Carloz at goal rate of 60mL/hour w/ decreased flush of 50mL H2O flush every 4 hours to provide 1728 calories, 108 g protein, and 1467mL total fluid/day. Lab / Micro Data 12/14/23 03:40 12/14/23 03:40 Labs: Laboratory Results - last 24 hr 12/13/23 04:10: Diff Path Review Reviewed 12/13/23 18:19: POC Glucose 179 H 12/13/23 23:01: POC Glucose 203 H 12/14/23 03:40: WBC 11.0, RBC 2.95 L, Hgb 8.3 L, Hct 25.4 L, MCV 86.1, MCH 28.1, MCHC 32.7, RDW Std Deviation 60.0 H, RDW Coeff of Saman 22.4 H, Plt Count 774 H*, MPV 10.7, Differential Comment SCANNED, Diff Path Review January, Sodium 144, Potassium 3.8, Chloride 106, Carbon Dioxide 34.0 H, Anion Gap 4 L, BUN 62 H, Creatinine 2.94 H, Estim Creat Clear Calc 29.54, Est GFR (MDRD) Af Amer 28 L, Est GFR (MDRD) Non-Af 23 L, BUN/Creatinine Ratio 21.1 H, Glucose 199 H, Calcium 9.3, Random Vancomycin 15.6 H 12/14/23 11:39: POC Glucose 100 Micro: Microbiology 12/03/23 16:20 Sputum, Induced/Lukens Gram Stain - Final 12/03/23 16:20 Sputum, Induced/Lukens Respiratory Culture - Final Meth. resistant Staph. aureus Yeast, not Evy albicans 11/29/23 09:50 Blood Culture (Wb) - Right Hand Blood Culture - Final No growth in 5 days. 12/03/23 16:55 Stool Enteric Bacteriology - Final 12/03/23 16:55 Stool Clostridioides difficile (PCR) - Final 11/28/23 13:16 Blood Culture (Wb) - Left Hand Blood Culture - Final No growth in 5 days. 11/25/23 10:45 Blood Culture (Wb) - Anticubital Right Blood Culture - Final No growth in 5 days. 11/25/23 10:38 Blood Culture (Wb) - Anticubital Left Blood Culture - Final Meth. resistant Staph. aureus 11/25/23 11:45 Urine, Catheterized Urine Culture - Final Culture exhibits no growth. 11/26/23 11:26 Stool Clostridioides difficile (PCR) - Final 11/25/23 11:40 Mucosa - Nose SARS-CoV-2, Influenza & RSV (PCR) - Final Rhythm Strip Rhythm Strip: Sinus Tach Rate: 123 Ectopy: - (No pauses noted.) Physical Exam Const Constitutional Narrative: Intubated and sedated. Awakening to voice but not following commands. Obese. HEENT normocephalic, head/scalp atraumatic and nasal mucous membranes and turbinates normal Eyes EOMs intact bilaterally Chest inspection of chest normal Resp normal respiratory effort and no use of accessory muscles Resp Narrative: Intubated and mechanically ventilated. On low vent settings. Good air movement on right, diminished breath sounds on left throughout, stable from previous. Cardio regular rate, regular rhythm, no murmurs and peripheral pulses 2+ throughout GI normal to inspection, nondistended, normoactive bowel sounds, soft to palpation, non-tender and non-distended Extremity Extremity Narrative: Trace lower extremity edema noted. Skin no rashes or lesions noted Assessment & Plan Assessment/Plan (1) MRSA bacteremia: (2) Sepsis: (3) Pneumonia: (4) Respiratory failure: (5) JULIETTE (acute kidney injury): PLAN: Plan Patient is a 63-year-old male who presented to [facility] ED on 11/25/2023 with worsening shortness of breath. 1. Acute hypoxic and hypercapnic respiratory failure Initially hypoxia presumed secondary to secondary MRSA pneumonia after recent flu pneumonia. Had worsening mental status and hypoxia on 12/02 requiring intubation. She was found to be hypercapnic postintubation. This was suspected secondary to decreased respiratory drive from possible overmedication as notable below. ? [employer] following. Remains intubated and sedated. Remains on low vent settings but per operator prefinish is having a significant amount of secretions and continues to fail SBT's. Vent day 12 on 12/13. Per nursing, there is a discussion planned with family tomorrow to discuss goals of care for the patient. 2. Hypotension with concern for shock, resolved; sepsis without shock secondary to MRSA bacteremia Initially presented with sepsis and found to have MRSA bacteremia presumed secondary to a MRSA pneumonia that developed post influenza pneumonia. TTE showed no valvular abnormalities. Developed hypotension after intubation and sedation, suspected that hypotension is likely secondary to sedation requirements. ? [employer] and ID following. Hemodynamically stable, has been off Levophed since morning of 12/05. Meropenem started postintubation on 12/03, discontinued 12/07 after negative cultures. Continue vancomycin. 3. Acute metabolic encephalopathy Patient noted to have worsening mentation on 11/27 of unclear etiology. Neurology was consulted for questionable seizure activity. MRI brain negative, EEG negative. Lab workup fairly benign. Neurology suspected toxic metabolic encephalopathy that was multifactorial in setting of sepsis, pneumonia, JULIETTE, delirium and polypharmacy from sedative medications of Ativan, Haldol and DPA, as well as a poor mental status at baseline. Patient required intubation on 12/02 as noted above. ? Neurology followed. Currently intubated and sedated. Holding home Haldol and Ativan to minimize use of sedation medications per neurology recommendations. Patient awakening to voice but not purposely following commands. Weaning sedation as able. 4. JULIETTE on suspected CKD stage IIIb, stable Creatinine 2.05 on admit, baseline creatinine around 1.8-2.1. Noted to have acutely worsened creatinine to 3.08 on 11/28 which then recovered back to baseline by 12/01. However, again had worsening of creatinine to 3.27 on 12/03 with decreased urine output suspected to be secondary to ATN from sepsis. ? Nephrology following. Transitioned off Lasix drip to IV Lasix 40 mg every 8 hours on 12/12, will continue this for now. Continue to monitor daily BMP and urine output. 5. Volume overload, improving ? Patient noted to be +10 L from volume status standpoint on 12/04, secondary to heavy IV fluids administered in setting of sepsis and concern for shock as noted above. [employer] and nephrology following as above. Diuresing as noted above. 6. A-fib with RVR, bradycardia with sinus pauses ? Cardiology evaluated on 11/29. Patient was noted to be on high-dose beta-diogo at that time and had some pauses on monitoring 6 seconds, unclear patient was symptomatic with these pauses. Not an urgent pacemaker candidate given bacteremia. Beta-diogo discontinued. Has had improvement in heart rate and no recent sinus pauses. Continue cardiac monitoring. 7. Hypernatremia, resolved ? Nephrology following as above. Presumed secondary to dehydration. Sodium peaked at 152 on 12/02, returned to normal range by 12/05. Continue H20 with tube feeds per ICU/nutrition recs. Monitor daily BMP. 8. Acute on chronic anemia, stable ? Known history of iron deficiency anemia, was on home iron supplement. Hemoglobin 10.5 on admit, slowly downtrending since then. Hemoglobin riky of 6.9 on , given 1 unit of packed red blood cells at that time with good improvement in hemoglobin to around 8. Stable. No active signs of bleeding. Iron studies on 12/04 showed anemia of chronic disease. Continue to monitor CBC daily. 9. Thrombocytosis ? Platelet count increasing with highest value of 774 on 12/13. Suspect due to acute stress state. Monitor daily CBC. Chronic medical conditions: ? Obesity: BMI 32 on admit. Complicates hospital course, care and prognosis. ? Paranoid schizophrenia/anxiety and depression/sexual aggression: Lives in [facility]. Continue home Depakote, holding home Haldol and Ativan as noted above. ? Type 2 diabetes mellitus: Home regimen of insulin glargine 35 units at night, lispro 17 units with meals, metformin 1000 mg twice daily, Jardiance 25 mg daily. Blood sugars elevated while inpatient. Continue Lantus 25 units twice daily and sliding-scale insulin every 4 hours as needed with tube feeds for now. ? Hypothyroidism: Continue home Synthroid. ? CAD/hypertension/hyperlipidemia: Continue home aspirin, statin, amlodipine. Holding home Lopressor due to bradycardia as noted above. Holding home losartan for JULIETTE. ? Tobacco abuse: Nicotine replacement therapy available as needed. DVT prophylaxis: Heparin subcu CODE STATUS: Full code, verified Expected disposition: TBD Total clinical time spent by myself addressing the patient's medical issues, reviewing all the data, and collaborating with patient's care team: 35 minutes. Charges/Coding Visit Charges Inpatient E&M: 37848 Subs Hosp L2
[2023-12-14] MEDS: Ferrous Sulfate 300 MG/5 ML UDC GT (12:24)
[2023-12-14] MEDS: MEDROXYPROGESTERONE ACETATE 10 MG TABLET GT ×2 (12:24→20:39)
[2023-12-14] MEDS: Insulin Glargine-YFGN 100 UNIT/ML Pen 15 UNIT SC (12:24)
--- NOTE | 2023-12-14 13:59 | PCM.PN.REN ---
Subjective Subjective Follow-up on acute kidney injury, fluid overload. Remains intubated, FiO2 35%, PEEP of 5, sedated with propofol and fentanyl. Has Browning catheter in with large amount of clear urine. Hemodynamically stable, no pressors Objective Data Objective Data Vital Signs: Vital Signs Temp Pulse Resp BP Pulse Ox O2 Del Method O2 Flow Rate 98.8 F 67 16 112/61 98 Mechanical Ventilator 40 12/14/23 13:00 12/14/23 13:00 12/14/23 13:00 12/14/23 13:00 12/14/23 13:00 12/14/23 13:00 12/07/23 06:00 FiO2 40 12/14/23 13:00 Oxygen Flow Rate (L/min) 40 Oxygen Delivery Method Mechanical Ventilator Weight: 98.9 kg Body Mass Index (BMI) 31.2 Intake & Output: Intake and Output for Last 24 Hours 12/12/23 12/13/23 12/14/23 23:59 23:59 23:59 Intake Total 3197.44 / 3280.04 2139.95 / 2348.60 1800.39 / 1800.39 Output Total 2450 / 2450 1625 / 1950 1475 / 1475 Balance 747.44 / 830.04 514.95 / 398.60 325.39 / 325.39 Medical Nutrition Assessment Dietitian: Malnutrition Criteria Met Start: 12/01/23 09:36 Freq: Status: Active Protocol: Document 12/11/23 09:56 (Rec: 12/11/23 09:56 [id number]) Nutrition Malnutrition Evidence of Malnutrition Exists Yes Malnutrition (severe): Acute Illness/Injury Evidenced By Suboptimal Energy Intake ( Severe),Weight Loss (Severe) Intake Problem Inadequate Oral Intake Etiology related to decreased ability to consume sufficient energy to meet estimated nutrient needs Signs/Symptoms as evidenced by extended NPO status x 10 days and intubation with need for enteral nutrition. Status Active Problem Clinical Problem Acute Disease or Injury Related Malnutrition Etiology severe, acute malnutrition related to inadequate energy intake d/t swallowing difficulties Signs/Symptoms as evidenced by unintentional 4% wt loss < 5 days, PO intake meeting <50% of estimated energy needs x 6 days Status Active Problem Recommendation Dietitian Recommendations/Changes NPO while intubated; Continue via OGT- Vital AF 1.2 Carloz at goal rate of 60mL/hour w/ decreased flush of 50mL H2O flush every 4 hours to provide 1728 calories, 108 g protein, and 1467mL total fluid/day. Lab / Micro Data Attestation: I reviewed the patient's lab results. 12/14/23 03:40 12/14/23 03:40 Labs: Laboratory Results - last 24 hr 12/13/23 18:19: POC Glucose 179 H 12/13/23 23:01: POC Glucose 203 H 12/14/23 03:40: WBC 11.0, RBC 2.95 L, Hgb 8.3 L, Hct 25.4 L, MCV 86.1, MCH 28.1, MCHC 32.7, RDW Std Deviation 60.0 H, RDW Coeff of Saman 22.4 H, Plt Count 774 H*, MPV 10.7, Differential Comment SCANNED, Diff Path Review January, Sodium 144, Potassium 3.8, Chloride 106, Carbon Dioxide 34.0 H, Anion Gap 4 L, BUN 62 H, Creatinine 2.94 H, Estim Creat Clear Calc 29.54, Est GFR (MDRD) Af Amer 28 L, Est GFR (MDRD) Non-Af 23 L, BUN/Creatinine Ratio 21.1 H, Glucose 199 H, Calcium 9.3, Random Vancomycin 15.6 H 12/14/23 11:39: POC Glucose 100 Micro: Microbiology 12/03/23 16:20 Sputum, Induced/Lukens Gram Stain - Final 12/03/23 16:20 Sputum, Induced/Lukens Respiratory Culture - Final Meth. resistant Staph. aureus Yeast, not Evy albicans 11/29/23 09:50 Blood Culture (Wb) - Right Hand Blood Culture - Final No growth in 5 days. 12/03/23 16:55 Stool Enteric Bacteriology - Final 12/03/23 16:55 Stool Clostridioides difficile (PCR) - Final 11/28/23 13:16 Blood Culture (Wb) - Left Hand Blood Culture - Final No growth in 5 days. 11/25/23 10:45 Blood Culture (Wb) - Anticubital Right Blood Culture - Final No growth in 5 days. 11/25/23 10:38 Blood Culture (Wb) - Anticubital Left Blood Culture - Final Meth. resistant Staph. aureus 11/25/23 11:45 Urine, Catheterized Urine Culture - Final Culture exhibits no growth. 11/26/23 11:26 Stool Clostridioides difficile (PCR) - Final 11/25/23 11:40 Mucosa - Nose SARS-CoV-2, Influenza & RSV (PCR) - Final ABG Data Attestation: I personally reviewed and interpreted this ABG as follows: Rhythm Strip Rhythm Strip: Sinus Tach Rate: 123 Ectopy: - (No pauses noted.) Physical Exam Const average body habitus General Appearance: patient mechanically ventilated HEENT normocephalic Head and Scalp: atraumatic External Ear: external ears normal Neck no lymphadenopathy Resp Auscultation: rhonchi throughout Cardio regular rate GI Auscultation: normoactive bowel sounds Palpation: soft Skin no rashes or lesions noted Assessment & Plan Assessment/Plan (1) JULIETTE (acute kidney injury): PLAN: His creatinine increasing secondary on the role, I suspect it is due to ongoing diuresis, I will go ahead and place diuretics on hold with potential restart tomorrow
[2023-12-14] MEDS: Propofol 10MG/Ml 1,000 MG/100 ML Bottle 17.8 MG CONT INF ×2 (15:19→20:00)
[2023-12-14] MEDS: fentaNYL drip 100 ML 12.5 MCG CONT INF (15:27)
[2023-12-14 18:18] LABS: Bedside Glucose 95 mg/dL (74-106)
[2023-12-14] MEDS: Atorvastatin Calcium 80 MG Tablet GT (20:40)
[2023-12-14] MEDS: traZODone 100 MG Tablet GT (20:41)
[2023-12-14] MEDS: Valproic Acid 250 MG/5 ML UDC GT (20:41)
[2023-12-14] MEDS: 0.9% Saline Lock 10 ML Syringe IV (20:42)
[2023-12-14 21:10] LABS: Bedside Glucose 80 mg/dL (74-106)
[2023-12-15] VITALS (37 sets, daily range): BP systolic 97–174; BP diastolic 58–122; PULSE 71–115; RESP 16–78; TEMP 36.6–37.2; O2SAT 88–100; BMI 30.9
[2023-12-15] MEDS: fentaNYL drip 100 ML 10 MCG CONT INF
[2023-12-15] MEDS: Propofol 10MG/Ml 1,000 MG/100 ML Bottle 17.8 MG CONT INF ×3 (00:17→15:40)
[2023-12-15 03:45] LABS: Hematocrit 23.9 % (40-54); Hemoglobin 7.6 g/dL (13.0-16.5); Mean Corp Hgb Conc 31.8 g/dL (32-36); Mean Corpuscular Hgb 27.4 pg (27.0-32.0); Mean Corpuscular Volume 86.3 fL (80-94); Mean Platelet Vol. 10.6 fl (6.2-12.0); POSITIVE COUNT YES; POSITIVE MORPHOLOGY YES; RBC Distribution Width SD 61.3 fl (35.1-43.9); Red Blood Count 2.77 M/mm3 (4.6-6.2); White Blood Count 11.7 K/mm3 (4.4-11.0)
[2023-12-15 04:18] LABS: Anion Gap 5 (5-15); BUN 60 mg/dL (7-18); BUN/Creat Ratio 21.5 RATIO (10-20); Calcium,Total 8.9 mg/dL (8.5-10.1); Chloride 106 mmol/L (98-107); Creatinine, Serum 2.79 mg/dL (0.70-1.30); EST Glomerular Filtration Rate 24 mL/min (>60); Est Glom Filt Rate - Afr Amer 30 mL/min (>60); Estimated Creatinine Clearance 30.97 ml/min; Glucose 159 mg/dL (74-106); Potassium 3.6 mmol/L (3.5-5.1); Sodium Level 143 mmol/L (136-145)
[2023-12-15 04:24] LABS: Platelet Count 756 K/mm3 (150-450); Scan Indicated on CBC? Y/N YES- FLAGS NOTED
[2023-12-15 05:07] LABS: Bedside Glucose 122 mg/dL (74-106)
[2023-12-15 05:09] LABS: Differential Comment SCANNED
[2023-12-15] MEDS: Nystatin Powder 15gm Bottle 1 APPLIC TOPICAL ×3 (05:20→21:18)
[2023-12-15] MEDS: Levothyroxine 50 MCG Tablet GT (05:20)
[2023-12-15 05:42] LABS: Bedside Glucose 137 mg/dL (74-106)
[2023-12-15] MEDS: Vital AF 1.2 Cal Liquid 1,000 ML 60 ML GT (06:42)
--- NOTE | 2023-12-15 07:30 | PN.CC_ITS ---
Assessment & Plan Assessment/Plan (1) MRSA bacteremia: (2) Sepsis: PLAN: Plan RECOMMENDATIONS: 1. Continue assist-control mode mechanical ventilation. Wean FiO2/PEEP for saturations greater than 90%. 2. Antimicrobials per ID recommendations. 3. Diuresis as tolerated by hemodynamics and renal function. 4. Continue tube feeding as tolerated. 5. Continue appropriate ICU prophylaxis 6. Continue daily spontaneous breathing trials. 7. Discuss tracheostomy and PEG tube with ENT and general surgery, respectively. IMPRESSIONS: 1. Sepsis secondary to MRSA bacteremia It is suspected that the patient developed post influenza pneumonia resulting in secondary bacteremia. The patient remains on antimicrobials per ID recommenda tions. No vegetations were seen on TTE. The patient remains hemodynamically stable. 2. Acute combined respiratory failure The patient was ultimately intubated in the setting of acute CO2 retention. He did have evidence of MRSA pneumonia, for which he remains on antibiotics. The patient continues to have a significant amount of secretions and continues to fail spontaneous breathing trials. Plan to continue current supportive measures. If the patient continues to fail SBT's, tracheostomy and PEG tube placement may need to be considered. Continue ongoing attempts at diuresis as tolerated by hemodynamics and renal function, as the patient is volume overloaded for the hospitalization. 3. History of atrial fibrillation/sinus pauses/coronary artery disease Cardiology is currently following to assist with medical management. 4. History of paranoid schizophrenia/chronic kidney disease/hypertension/diabetes mellitus/hypothyroidism Complicates care, management, recovery and prognosis. Continue supportive measures as noted above along with basal and sliding scale insulin coverage. Continue tube feeding as tolerated. TIME: 32 minutes of critical care time, independent of procedures, was spent addressing the patient's sepsis, MRSA pneumonia with bacteremia, acute combined respiratory failure, sinus arrhythmia, review of all data and collaboration with care team. Subjective Subjective The patient was seen and examined at the bedside this morning. Events from the last 24 hours have been reviewed. The patient is currently afebrile, hemodynamically stable and maintaining appropriate oxygen saturations on assist- control mode mechanical ventilation with an FiO2 requirement of 40%. Today is ventilator day #13. The patient remains overall net positive for the hospitalization. Hemoglobin is relatively stable at 7.6 g/dL. Platelet count is elevated at 756,000. I called once again and spoke to Umang Chung this morning, the patient's legal guardian. Ironically, he reported that he did not have any intention in coming to the hospital to discuss goals of care, despite my request for him to do so several days ago. He once again reported that he would not wish to proceed with any form of invasive measures or life-sustaining interventions, including tracheostomy or PEG tube placement. However, his brother and sister are requesting that the aforementioned be performed. He stated that he does not have any intention to over rule the wishes of his siblings. I did once again emphasized to him that I think the best plan of care for the patient would include a transition to DNR CCA without intubation, with plans to extubate the patient and not reintubate him if he does not do well. Regardless, the patient's legal guardian is requesting that we proceed with consideration for tracheostomy and PEG tube placement. Therefore, I will reach out to both ENT and general surgery to discuss the request. Objective Data Objective Data The patient's most recent lab work, culture data and imaging studies have all been personally reviewed. Sputum culture dated December 02 was positive for MRSA. Vital Signs: Vital Signs Temp Pulse Resp BP Pulse Ox O2 Del Method O2 Flow Rate 97.8 F 82 18 97/58 L 91 Mechanical Ventilator 40 12/15/23 04:00 12/15/23 07:00 12/15/23 07:00 12/15/23 07:00 12/15/23 07:00 12/15/23 07:00 12/07/23 06:00 FiO2 40 12/15/23 07:00 Oxygen Flow Rate (L/min) 40 Oxygen Delivery Method Mechanical Ventilator Weight: 215 lb 13.321 oz Body Mass Index (BMI) 30.9 Intake & Output: Intake and Output for Last 24 Hours 12/13/23 12/14/23 12/15/23 23:59 23:59 23:59 Intake Total 2139.95 / 2348.60 2258.62 / 2365.79 1318.52 / 1318.52 Output Total 1625 / 1950 1800 / 2150 800 / 800 Balance 514.95 / 398.60 458.62 / 215.79 518.52 / 518.52 Medical Nutrition Assessment Dietitian: Malnutrition Criteria Met Start: 12/01/23 09:36 Freq: Status: Active Protocol: Document 12/11/23 09:56 SARAHI (Rec: 12/11/23 09:56 LO [id number]) Nutrition Malnutrition Evidence of Malnutrition Exists Yes Malnutrition (severe): Acute Illness/Injury Evidenced By Suboptimal Energy Intake ( Severe),Weight Loss (Severe) Intake Problem Inadequate Oral Intake Etiology related to decreased ability to consume sufficient energy to meet estimated nutrient needs Signs/Symptoms as evidenced by extended NPO status x 10 days and intubation with need for enteral nutrition. Status Active Problem Clinical Problem Acute Disease or Injury Related Malnutrition Etiology severe, acute malnutrition related to inadequate energy intake d/t swallowing difficulties Signs/Symptoms as evidenced by unintentional 4% wt loss < 5 days, PO intake meeting <50% of estimated energy needs x 6 days Status Active Problem Recommendation Dietitian Recommendations/Changes NPO while intubated; Continue via OGT- Vital AF 1.2 Carloz at goal rate of 60mL/hour w/ decreased flush of 50mL H2O flush every 4 hours to provide 1728 calories, 108 g protein, and 1467mL total fluid/day. Lab / Micro Data Attestation: I reviewed the patient's lab results. 12/15/23 03:35 12/15/23 03:35 Labs: Laboratory Results - last 24 hr 12/14/23 11:39: POC Glucose 100 12/14/23 17:57: POC Glucose 95 12/14/23 20:44: POC Glucose 80 12/15/23 00:49: POC Glucose 122 H 12/15/23 03:35: WBC 11.7 H, RBC 2.77 L, Hgb 7.6 L, Hct 23.9 L, MCV 86.3, MCH 27.4, MCHC 31.8 L, RDW Std Deviation 61.3 H, RDW Coeff of Saman 22.0 H, Plt Count 756 H*, MPV 10.6, Differential Comment SCANNED, Diff Path Review January foll, Sodium 143, Potassium 3.6, Chloride 106, Carbon Dioxide 32.0, Anion Gap 5, BUN 60 H, Creatinine 2.79 H, Estim Creat Clear Calc 30.97, Est GFR (MDRD) Af Amer 30 L, Est GFR (MDRD) Non-Af 24 L, BUN/Creatinine Ratio 21.5 H, Glucose 159 H, Calcium 8.9 12/15/23 05:22: POC Glucose 137 H Micro: Microbiology 12/03/23 16:20 Sputum, Induced/Lukens Gram Stain - Final 12/03/23 16:20 Sputum, Induced/Lukens Respiratory Culture - Final Meth. resistant Staph. aureus Yeast, not Evy albicans 11/29/23 09:50 Blood Culture (Wb) - Right Hand Blood Culture - Final No growth in 5 days. 12/03/23 16:55 Stool Enteric Bacteriology - Final 12/03/23 16:55 Stool Clostridioides difficile (PCR) - Final 11/28/23 13:16 Blood Culture (Wb) - Left Hand Blood Culture - Final No growth in 5 days. 11/25/23 10:45 Blood Culture (Wb) - Anticubital Right Blood Culture - Final No growth in 5 days. 11/25/23 10:38 Blood Culture (Wb) - Anticubital Left Blood Culture - Final Meth. resistant Staph. aureus 11/25/23 11:45 Urine, Catheterized Urine Culture - Final Culture exhibits no growth. 11/26/23 11:26 Stool Clostridioides difficile (PCR) - Final 11/25/23 11:40 Mucosa - Nose SARS-CoV-2, Influenza & RSV (PCR) - Final ABG Data ABG results: ABG 12/12/23 06:07 Specimen Type ART Sample Site R Radial pH 7.46 H Bicarbonate Actual 29.8 H Total CO2 31 Base Excess 6 H O2 Saturation 91 L O2 % 35.0 ABG pCO2 41.8 ABG pO2 58 L Polo Test Positive Respiration Rate 16 O2 Delivery Device ET Tube Vent Mode AC Tidal Volume 450.0 POC PEEP 5 Radiography Diagnostic Testing: Radiology Impression Chest X-Ray 12/12/23 06:00 IMPRESSION: Increased right basilar infiltrate or atelectasis. No change left pleural effusion and left basilar atelectasis. Electronically Signed: Rema Jaffe MD at 8:17 EDT , Rhythm Strip Rhythm Strip: Sinus Tach Rate: 123 Ectopy: - (No pauses noted.) Physical Exam Const Constitutional Narrative: Intubated, sedated and mechanically ventilated. No ventilator dyssynchrony noted. HEENT normocephalic and head/scalp atraumatic Mouth: endotracheal tube in place and OG tube in place Eyes PERRL, EOMs intact bilaterally and conjunctivae normal Neck supple General: trachea midline Chest inspection of chest normal Resp normal respiratory effort Auscultation: diminished lung sounds Cardio S1 normal heart sound and S2 normal heart sound Rate: tachycardic GI normal to inspection, nondistended, normoactive bowel sounds Extremity General Extremity: Negative for clubbing or edema Neuro Sensorium / Orientation: sedated on vent Charges/Coding Procedures Hospitalists Procedures: 91484 Critical Care 1st Hr
[2023-12-15] MEDS: Chlorhexidine 15 ML PO ×2 (08:36→21:19)
[2023-12-15] MEDS: Aspirin 81 MG TAB.CHEW GT (08:40)
[2023-12-15] MEDS: Menthol/Lanolin/Calamine/Znox 113 GM Tube 1 APPLIC TOPICAL ×2 (08:40→22:01)
[2023-12-15] MEDS: Heparin Injection (Vial) 5,000 UNIT/ML VIAL 5000 UNIT SC ×2 (08:41→21:18)
[2023-12-15] MEDS: Valproic Acid 250 MG/5 ML UDC 500 MG GT ×2 (08:45→21:17)
[2023-12-15] MEDS: Furosemide 40 MG/4 ML Vial IV ×2 (08:45→21:18)
[2023-12-15] MEDS: Insulin Glargine-YFGN 100 UNIT/ML Pen 15 UNIT SC ×2 (08:46→23:07)
[2023-12-15] MEDS: MEDROXYPROGESTERONE ACETATE 10 MG TABLET GT ×2 (08:48→21:17)
[2023-12-15] MEDS: Pantoprazole Sodium 40 MG in 0.9% Normal Saline (100mL MB+) 100 ML 330 MG IV (08:51)
[2023-12-15] MEDS: QUEtiapine 25 MG Tablet 50 MG GT ×2 (08:52→21:17)
[2023-12-15 09:41] LABS: Pathologist Review Reviewed
[2023-12-15] MEDS: fentaNYL drip 100 ML 12.5 MCG CONT INF (10:25)
[2023-12-15] MEDS: Insulin Lispro 100 UNIT/ML INSULN.PEN SC ×3 (11:23→23:07)
[2023-12-15] MEDS: Ferrous Sulfate 300 MG/5 ML UDC GT (11:25)
[2023-12-15 11:45] LABS: Bedside Glucose 177 mg/dL (74-106)
--- NOTE | 2023-12-15 12:18 | PCM.PN.HOSP ---
Reason for Visit Reason for Visit: Diagnoses Sepsis, unspecified organism (11/25/23) Methicillin resistant Staphylococcus aureus infection as the cause of diseases classified elsewhere (11/25/23) Essential (primary) hypertension (11/25/23) Unspecified atrial fibrillation (11/25/23) Pneumonia, unspecified organism (11/25/23) Respiratory failure, unspecified, unspecified whether with hypoxia or hypercapnia (11/25/23) Acute kidney failure, unspecified (11/25/23) Bacteremia (11/25/23) Subjective Subjective No acute events overnight. Patient seen at bedside this morning. Same as previous days, remains sedated and intubated, opening eyes to voice but not following commands. Objective Data Objective Data Vital Signs: Vital Signs Temp Pulse Resp BP Pulse Ox O2 Del Method O2 Flow Rate 98.7 F 86 17 132/63 H 99 Mechanical Ventilator 40 12/15/23 12:00 12/15/23 12:11 12/15/23 12:11 12/15/23 12:00 12/15/23 12:11 12/15/23 12:00 12/07/23 06:00 FiO2 40 12/15/23 12:11 Oxygen Flow Rate (L/min) 40 Oxygen Delivery Method Mechanical Ventilator Weight: 97.9 kg Body Mass Index (BMI) 30.9 Intake & Output: Intake and Output for Last 24 Hours 12/13/23 12/14/23 12/15/23 23:59 23:59 23:59 Intake Total 2139.95 / 2348.60 2258.62 / 2365.79 1489.43 / 1489.43 Output Total 1625 / 1950 1800 / 2150 1500 / 1500 Balance 514.95 / 398.60 458.62 / 215.79 -10.57 / -10.57 Medical Nutrition Assessment Dietitian: Malnutrition Criteria Met Start: 12/01/23 09:36 Freq: Status: Active Protocol: Document 12/11/23 09:56 SARAHI (Rec: 12/11/23 09:56 [id number]) Nutrition Malnutrition Evidence of Malnutrition Exists Yes Malnutrition (severe): Acute Illness/Injury Evidenced By Suboptimal Energy Intake ( Severe),Weight Loss (Severe) Intake Problem Inadequate Oral Intake Etiology related to decreased ability to consume sufficient energy to meet estimated nutrient needs Signs/Symptoms as evidenced by extended NPO status x 10 days and intubation with need for enteral nutrition. Status Active Problem Clinical Problem Acute Disease or Injury Related Malnutrition Etiology severe, acute malnutrition related to inadequate energy intake d/t swallowing difficulties Signs/Symptoms as evidenced by unintentional 4% wt loss < 5 days, PO intake meeting <50% of estimated energy needs x 6 days Status Active Problem Recommendation Dietitian Recommendations/Changes NPO while intubated; Continue via OGT- Vital AF 1.2 Carloz at goal rate of 60mL/hour w/ decreased flush of 50mL H2O flush every 4 hours to provide 1728 calories, 108 g protein, and 1467mL total fluid/day. Lab / Micro Data 12/15/23 03:35 12/15/23 03:35 Labs: Laboratory Results - last 24 hr 12/14/23 03:40: Diff Path Review Reviewed 12/14/23 17:57: POC Glucose 95 12/14/23 20:44: POC Glucose 80 12/15/23 00:49: POC Glucose 122 H 12/15/23 03:35: WBC 11.7 H, RBC 2.77 L, Hgb 7.6 L, Hct 23.9 L, MCV 86.3, MCH 27.4, MCHC 31.8 L, RDW Std Deviation 61.3 H, RDW Coeff of Saman 22.0 H, Plt Count 756 H*, MPV 10.6, Differential Comment SCANNED, Diff Path Review January, Sodium 143, Potassium 3.6, Chloride 106, Carbon Dioxide 32.0, Anion Gap 5, BUN 60 H, Creatinine 2.79 H, Estim Creat Clear Calc 30.97, Est GFR (MDRD) Af Amer 30 L, Est GFR (MDRD) Non-Af 24 L, BUN/Creatinine Ratio 21.5 H, Glucose 159 H, Calcium 8.9 12/15/23 05:22: POC Glucose 137 H 12/15/23 11:21: POC Glucose 177 H Micro: Microbiology 12/03/23 16:20 Sputum, Induced/Lukens Gram Stain - Final 12/03/23 16:20 Sputum, Induced/Lukens Respiratory Culture - Final Meth. resistant Staph. aureus Yeast, not Evy albicans 11/29/23 09:50 Blood Culture (Wb) - Right Hand Blood Culture - Final No growth in 5 days. 12/03/23 16:55 Stool Enteric Bacteriology - Final 12/03/23 16:55 Stool Clostridioides difficile (PCR) - Final 11/28/23 13:16 Blood Culture (Wb) - Left Hand Blood Culture - Final No growth in 5 days. 11/25/23 10:45 Blood Culture (Wb) - Anticubital Right Blood Culture - Final No growth in 5 days. 11/25/23 10:38 Blood Culture (Wb) - Anticubital Left Blood Culture - Final Meth. resistant Staph. aureus 11/25/23 11:45 Urine, Catheterized Urine Culture - Final Culture exhibits no growth. 11/26/23 11:26 Stool Clostridioides difficile (PCR) - Final 11/25/23 11:40 Mucosa - Nose SARS-CoV-2, Influenza & RSV (PCR) - Final Rhythm Strip Rhythm Strip: Sinus Tach Rate: 123 Ectopy: - (No pauses noted.) Physical Exam Const Constitutional Narrative: Intubated and sedated. Awakening to voice but not following commands. Obese. HEENT normocephalic, head/scalp atraumatic and nasal mucous membranes and turbinates normal Eyes EOMs intact bilaterally Chest inspection of chest normal Resp normal respiratory effort and no use of accessory muscles Resp Narrative: Intubated and mechanically ventilated. On low vent settings. Good air movement on right, diminished breath sounds on left throughout, stable from previous. Cardio regular rate, regular rhythm, no murmurs and peripheral pulses 2+ throughout GI normal to inspection, nondistended, normoactive bowel sounds, soft to palpation, non-tender and non-distended Extremity Extremity Narrative: Trace lower extremity edema noted. Skin no rashes or lesions noted Assessment & Plan Assessment/Plan (1) MRSA bacteremia: (2) Sepsis: (3) Pneumonia: (4) Respiratory failure: (5) JULIETTE (acute kidney injury): PLAN: Plan Patient is a 63-year-old male who presented to [facility] ED on 11/25/2023 with worsening shortness of breath. 1. Acute hypoxic and hypercapnic respiratory failure Initially hypoxia presumed secondary to secondary MRSA pneumonia after recent flu pneumonia. Had worsening mental status and hypoxia on 12/02 requiring intubation. She was found to be hypercapnic postintubation. This was suspected secondary to decreased respiratory drive from possible overmedication as notable below. ? Curb Builder following. Remains intubated and sedated. Vent day 13 on 12/14. Further discussions regarding goals of care for the patient ongoing with patient's legal guardian at his facility as well as patient's family members. 2. Hypotension with concern for shock, resolved; sepsis without shock secondary to MRSA bacteremia Initially presented with sepsis and found to have MRSA bacteremia presumed secondary to a MRSA pneumonia that developed post influenza pneumonia. TTE showed no valvular abnormalities. Developed hypotension after intubation and sedation, suspected that hypotension is likely secondary to sedation requirements. ? Curb Builder and ID following. Hemodynamically stable, has been off Levophed since morning of 12/05. Meropenem started postintubation on 12/03, discontinued 12/07 after negative cultures. Continue vancomycin. 3. Acute metabolic encephalopathy Patient noted to have worsening mentation on 11/27 of unclear etiology. Neurology was consulted for questionable seizure activity. MRI brain negative, EEG negative. Lab workup fairly benign. Neurology suspected toxic metabolic encephalopathy that was multifactorial in setting of sepsis, pneumonia, JULIETTE, delirium and polypharmacy from sedative medications of Ativan, Haldol and DPA, as well as a poor mental status at baseline. Patient required intubation on 12/02 as noted above. ? Neurology followed. Currently intubated and sedated. Holding home Haldol and Ativan to minimize use of sedation medications per neurology recommendations. Patient awakening to voice but not purposely following commands. Weaning sedation as able. 4. JULIETTE on suspected CKD stage IIIb, stable Creatinine 2.05 on admit, baseline creatinine around 1.8-2.1. Noted to have acutely worsened creatinine to 3.08 on 11/28 which then recovered back to baseline by 12/01. However, again had worsening of creatinine to 3.27 on 12/03 with decreased urine output suspected to be secondary to ATN from sepsis. ? Nephrology following. Transitioned off Lasix drip to IV Lasix 40 mg twice daily on 12/12, will continue this for now. Continue to monitor daily BMP and urine output. 5. Volume overload, improved ? Patient noted to be +10 L from volume status standpoint on 12/04, secondary to heavy IV fluids administered in setting of sepsis and concern for shock as noted above. Curb Builder and nephrology following as above. Diuresing as noted above. 6. A-fib with RVR, bradycardia with sinus pauses ? Cardiology evaluated on 11/29. Patient was noted to be on high-dose beta-diogo at that time and had some pauses on monitoring 6 seconds, unclear patient was symptomatic with these pauses. Not an urgent pacemaker candidate given bacteremia. Beta-diogo discontinued. Has had improvement in heart rate and no recent sinus pauses. Continue cardiac monitoring. 7. Hypernatremia, resolved ? Nephrology following as above. Presumed secondary to dehydration. Sodium peaked at 152 on 12/02, returned to normal range by 12/05. Continue H20 with tube feeds per ICU/nutrition recs. Monitor daily BMP. 8. Acute on chronic anemia, stable ? Known history of iron deficiency anemia, was on home iron supplement. Hemoglobin 10.5 on admit, slowly downtrending since then. Hemoglobin riky of 6.9 on , given 1 unit of packed red blood cells at that time with good improvement in hemoglobin to around 8. Stable. No active signs of bleeding. Iron studies on 12/04 showed anemia of chronic disease. Continue to monitor CBC daily. 9. Thrombocytosis ? Platelet count peaked on 12/13 at 774, now slowly downtrending. Suspect due to acute stress state. Monitor daily CBC. Chronic medical conditions: ? Obesity: BMI 32 on admit. Complicates hospital course, care and prognosis. ? Paranoid schizophrenia/anxiety and depression/sexual aggression: Lives in skilled nursing. Continue home Depakote, holding home Haldol and Ativan as noted above. ? Type 2 diabetes mellitus: Home regimen of insulin glargine 35 units at night, lispro 17 units with meals, metformin 1000 mg twice daily, Jardiance 25 mg daily. Continue Lantus 15 units twice daily and sliding-scale insulin every 4 hours as needed with tube feeds for now. ? Hypothyroidism: Continue home Synthroid. ? CAD/hypertension/hyperlipidemia: Continue home aspirin, statin, amlodipine. Holding home Lopressor due to bradycardia as noted above. Holding home losartan for JULIETTE. ? Tobacco abuse: Nicotine replacement therapy available as needed. DVT prophylaxis: Heparin subcu CODE STATUS: Full code, verified Expected disposition: TBD Total clinical time spent by myself addressing the patient's medical issues, reviewing all the data, and collaborating with patient's care team: 35 minutes. Charges/Coding Visit Charges Inpatient E&M: 25472 Subs Hosp L2
--- NOTE | 2023-12-15 12:30 | EX.PCM.CON.S ---
Assessment & Plan Assessment/Plan (1) Respiratory failure: (2) JULIETTE (acute kidney injury): (3) MRSA bacteremia: (4) Pneumonia: (5) Schizophrenia: QUALIFIERS: Schizophrenia type: unspecified Qualified Code(s): F20.9 - Schizophrenia, unspecified PLAN: Plan Patient has been on vent for 13 days and has so far failed spontaneous breathing trials and has increased secretions. Did call and talk with the brother Marko and discuss that if there is a chance patient would pull out the PEG tube I would not plan on placing 1 as it would be a surgical emergency if he pulls it out within the 3 to 4 weeks and the patient has function of his arms he could easily pull it out. I did ask the patient's brother about his quality of life he states that he lives in [place] but that he does call him every day but he is unable to say whether he would maybe pull this out or not. Also discussed with Marko that he would not go back to his retirement with the trach and currently he is quite debilitated from 13 days on the vent and would need quite a bit of rehab if he could even make it back to the retirement in the future. He does hint that his other brother, who is medical power of perfusionist, thinks that he would likely pull out a PEG. Marko currently states that he is picking up his brother and they are heading up here. Will plan to discuss further with family in person. No emergent plans for placement of PEG tube, can continue tube feeds via NG. Tsering Gann M.D. Pager: [phone] [facility] [address] [place] [address], [address] [place] [address] Office: [phone] HPI Consult Data Date of Consult: 12/15/23 HPI Narrative Reason for Consultation: peg HPI Narrative: ERICK DIAZ, is a 63 M who admitted to the ICU due to respiratory failure, MRSA bacteremia, pneumonia, sepsis, influenza A and been on the vent for the last 13 days. Patient has failed spontaneous breathing trials and does have a lot of secretions. Patient has past medical history for schizophrenia and lives in a retirement. 1 of patient's brothers is the medical power of perfusionist however per ICU and hospitalist he has been deferring opinions to his other brother and sister who are wanting everything done. Consulted for possible PEG tube. PFSH Medical History Anxiety and depression Atrial fibrillation Chest pain Chronic anemia CKD (chronic kidney disease), stage III Congestive heart failure (CHF) COPD (chronic obstructive pulmonary disease) Diabetes mellitus, type 2 Fe deficiency anemia HLD (hyperlipidemia) HTN (hypertension) Hx of non-ST elevation myocardial infarction (NSTEMI) Hypothyroidism Obesity PVD (peripheral vascular disease) Schizophrenia Smoker Tobacco use Home Medications atorvastatin 80 mg tablet 80 mg PO DAILY arterial disease 07/25/19 [History Last Taken 11/24/23] cholecalciferol (vitamin D3) 50 mcg (2,000 unit) capsule 2,000 unit PO DAILY supplement 07/25/19 [History Last Taken 11/25/23] haloperidol 5 mg tablet 5 mg PO Q6H PRN Agitation 07/25/19 [History Last Taken 11/15/23] levothyroxine 50 mcg tablet 50 mcg PO DAILY hypothyroid 07/25/19 [History Last Taken 11/25/23] lorazepam 1 mg tablet 1 mg PO Q6H PRN Agitation 07/25/19 [History Last Taken 11/15/23] metformin 1,000 mg tablet 1,000 mg PO BID DM 07/25/19 [History Last Taken 11/25/23] trazodone 100 mg tablet 100 mg PO QHS insom 07/25/19 [History Last Taken 11/24/23] albuterol sulfate 0.63 mg/3 mL solution for nebulization 0.63 mg inhalation TID Wheezing 09/23/21 [History Last Taken 11/25/23] losartan 100 mg tablet 100 mg PO DAILY hypertensio 09/23/21 [History Last Taken 11/25/23] aluminum-mag hydroxide-simethicone 400 mg-400 mg-40 mg/5 mL oral susp (Mylanta Maximum Strength) 15 ml PO Q4H PRN heartburn/indigestion 09/24/21 [History Last Taken Unknown] magnesium hydroxide 400 mg/5 mL oral suspension (Milk of Magnesia) 30 ml PO DAILY PRN Constipation 09/24/21 [History Last Taken Unknown] nicotine (polacrilex) 2 mg buccal lozenge 2 mg buccal Q2H PRN smoking alternative 09/24/21 [History Last Taken Unknown] acetaminophen 325 mg tablet (Tylenol) 650 mg PO Q4H PRN fever or pain 11/10/21 [History Last Taken Unknown] ferrous sulfate 325 mg (65 mg iron) tablet 325 mg PO DAILY iron 07/21/22 [History Last Taken 11/25/23] haloperidol 2 mg tablet 2 mg PO TID agitation 07/21/22 [History Last Taken 11/25/23] metoprolol tartrate 100 mg tablet 100 mg PO BID htn 30 days #0 tabs 07/23/22 [Rx Last Taken 11/25/23] divalproex 250 mg tablet,delayed release (Depakote) 250 mg PO BID paranoid schizophrenia 08/11/22 [History Last Taken 11/24/23] furosemide 40 mg tablet (Lasix) 40 mg PO DAILY chf 08/11/22 [History Last Taken 11/24/23] amlodipine 5 mg tablet 5 mg PO DAILY #90 tabs 08/30/22 [Rx Last Taken 11/25/23] divalproex 500 mg tablet,extended release 24 hr (Depakote ER) 500 mg PO BID paranoid schizopreh 07/20/23 [History Last Taken 11/25/23] empagliflozin 25 mg tablet (Jardiance) 25 mg PO DAILY DM 07/20/23 [History Last Taken 11/25/23] insulin lispro 100 unit/mL subcutaneous cartridge 17 unit subcut TID hyperglycemia 07/20/23 [History Last Taken 11/24/23] lorazepam 1 mg tablet 1 mg PO BID anxiety 07/20/23 [History Last Taken 11/25/23] medroxyprogesterone 10 mg tablet (Provera) 10 mg PO BID sexual aggression 07/20/23 [History Last Taken 11/25/23] aspirin 81 mg tablet,delayed release (Adult Aspirin Regimen) 81 mg PO DAILY PVD 11/19/23 [History Last Taken 11/25/23] glucagon HCl 1 mg solution for injection (Glucagon (HCl) Emergency Kit) 1 mg IM Q20M PRN hypoglycemia 11/19/23 [History Last Taken Unknown] nicotine 10 mg inhalation cartridge (Nicotrol) 1 inh inhalation Q2H PRN nicotine cravings 11/19/23 [History Last Taken Unknown] prednisone 20 mg tablet 40 mg (2 x 20 mg) PO DAILY 3 days #6 tabs 11/20/23 [Rx Last Taken 11/24/23] albuterol sulfate 0.63 mg/3 mL solution for nebulization 0.63 mg inhalation Q4H PRN shortness of breath or wheezing 11/25/23 [History Last Taken 11/25/23] insulin glargine 100 unit/mL subcutaneous solution (Lantus U-100 Insulin) 35 unit subcut QHS diabetes 11/25/23 [History Last Taken 11/24/23] oseltamivir 75 mg capsule (Tamiflu) 75 mg PO DAILY 11/25/23 [History Last Taken 11/25/23] Allergy/AdvReac Type Severity Reaction Status Date / Time No Known Allergies Allergy Verified 11/25/23 10:09 Family History Mother No family history of disorders Father No family history of disorders Other Hypertension Surgical History No history of previous surgery No history of previous surgery Social History household members: other details: [facility]. housing: other details: [facility]. Smoking Status: Current every day smoker tobacco type: cigarettes alcohol intake: never substance use type: does not use Physical Exam Narrative Patient is intubated sedated HEENT HEENT Narrative: ET tube and NG in place Cardio Rate: regular rate GI soft to palpation and non-distended GI Narrative: Previous horizontal infraumbilical incision (?questionable hernia repair in the past) Medical Records Data Medical Nutrition Assessment Dietitian: Malnutrition Criteria Met Start: 12/01/23 09:36 Freq: Status: Active Protocol: Document 12/11/23 09:56 (Rec: 12/11/23 09:56 [id number]) Nutrition Malnutrition Evidence of Malnutrition Exists Yes Malnutrition (severe): Acute Illness/Injury Evidenced By Suboptimal Energy Intake ( Severe),Weight Loss (Severe) Intake Problem Inadequate Oral Intake Etiology related to decreased ability to consume sufficient energy to meet estimated nutrient needs Signs/Symptoms as evidenced by extended NPO status x 10 days and intubation with need for enteral nutrition. Status Active Problem Clinical Problem Acute Disease or Injury Related Malnutrition Etiology severe, acute malnutrition related to inadequate energy intake d/t swallowing difficulties Signs/Symptoms as evidenced by unintentional 4% wt loss < 5 days, PO intake meeting <50% of estimated energy needs x 6 days Status Active Problem Recommendation Dietitian Recommendations/Changes NPO while intubated; Continue via OGT- Vital AF 1.2 Carloz at goal rate of 60mL/hour w/ decreased flush of 50mL H2O flush every 4 hours to provide 1728 calories, 108 g protein, and 1467mL total fluid/day. Lab / Micro Data 12/15/23 03:35 12/15/23 03:35 Labs: Laboratory Results - last 24 hr 12/14/23 03:40: Diff Path Review Reviewed 12/14/23 17:57: POC Glucose 95 12/14/23 20:44: POC Glucose 80 12/15/23 00:49: POC Glucose 122 H 12/15/23 03:35: WBC 11.7 H, RBC 2.77 L, Hgb 7.6 L, Hct 23.9 L, MCV 86.3, MCH 27.4, MCHC 31.8 L, RDW Std Deviation 61.3 H, RDW Coeff of Saman 22.0 H, Plt Count 756 H*, MPV 10.6, Differential Comment SCANNED, Diff Path Review May foll, Sodium 143, Potassium 3.6, Chloride 106, Carbon Dioxide 32.0, Anion Gap 5, BUN 60 H, Creatinine 2.79 H, Estim Creat Clear Calc 30.97, Est GFR (MDRD) Af Amer 30 L, Est GFR (MDRD) Non-Af 24 L, BUN/Creatinine Ratio 21.5 H, Glucose 159 H, Calcium 8.9 12/15/23 05:22: POC Glucose 137 H 12/15/23 11:21: POC Glucose 177 H Rhythm Strip Rhythm Strip: Sinus Tach Rate: 123 Ectopy: - (No pauses noted.)
--- NOTE | 2023-12-15 12:48 | PN.RENAL_ITS ---
Subjective Subjective No overnight events. Remains on ventilator support. Objective Data Objective Data Vital Signs: Vital Signs Temp Pulse Resp BP Pulse Ox O2 Del Method O2 Flow Rate 98.7 F 86 17 132/63 H 99 Mechanical Ventilator 40 12/15/23 12:00 12/15/23 12:11 12/15/23 12:11 12/15/23 12:00 12/15/23 12:11 12/15/23 12:00 12/07/23 06:00 FiO2 40 12/15/23 12:11 Oxygen Flow Rate (L/min) 40 Oxygen Delivery Method Mechanical Ventilator Weight: 97.9 kg Body Mass Index (BMI) 30.9 Intake & Output: Intake and Output for Last 24 Hours 12/13/23 12/14/23 12/15/23 23:59 23:59 23:59 Intake Total 2139.95 / 2348.60 2258.62 / 2365.79 1489.43 / 1489.43 Output Total 1625 / 1950 1800 / 2150 1500 / 1500 Balance 514.95 / 398.60 458.62 / 215.79 -10.57 / -10.57 Medical Nutrition Assessment Dietitian: Malnutrition Criteria Met Start: 12/01/23 09:36 Freq: Status: Active Protocol: Document 12/11/23 09:56 (Rec: 12/11/23 09:56 [id number]) Nutrition Malnutrition Evidence of Malnutrition Exists Yes Malnutrition (severe): Acute Illness/Injury Evidenced By Suboptimal Energy Intake ( Severe),Weight Loss (Severe) Intake Problem Inadequate Oral Intake Etiology related to decreased ability to consume sufficient energy to meet estimated nutrient needs Signs/Symptoms as evidenced by extended NPO status x 10 days and intubation with need for enteral nutrition. Status Active Problem Clinical Problem Acute Disease or Injury Related Malnutrition Etiology severe, acute malnutrition related to inadequate energy intake d/t swallowing difficulties Signs/Symptoms as evidenced by unintentional 4% wt loss < 5 days, PO intake meeting <50% of estimated energy needs x 6 days Status Active Problem Recommendation Dietitian Recommendations/Changes NPO while intubated; Continue via OGT- Vital AF 1.2 Carloz at goal rate of 60mL/hour w/ decreased flush of 50mL H2O flush every 4 hours to provide 1728 calories, 108 g protein, and 1467mL total fluid/day. Lab / Micro Data 12/15/23 03:35 12/15/23 03:35 Labs: Laboratory Results - last 24 hr 12/14/23 03:40: Diff Path Review Reviewed 12/14/23 17:57: POC Glucose 95 12/14/23 20:44: POC Glucose 80 12/15/23 00:49: POC Glucose 122 H 12/15/23 03:35: WBC 11.7 H, RBC 2.77 L, Hgb 7.6 L, Hct 23.9 L, MCV 86.3, MCH 27.4, MCHC 31.8 L, RDW Std Deviation 61.3 H, RDW Coeff of Saman 22.0 H, Plt Count 756 H*, MPV 10.6, Differential Comment SCANNED, Diff Path Review January, Sodium 143, Potassium 3.6, Chloride 106, Carbon Dioxide 32.0, Anion Gap 5, BUN 60 H, Creatinine 2.79 H, Estim Creat Clear Calc 30.97, Est GFR (MDRD) Af Amer 30 L, Est GFR (MDRD) Non-Af 24 L, BUN/Creatinine Ratio 21.5 H, Glucose 159 H, Calcium 8.9 12/15/23 05:22: POC Glucose 137 H 12/15/23 11:21: POC Glucose 177 H Micro: Microbiology 12/03/23 16:20 Sputum, Induced/Lukens Gram Stain - Final 12/03/23 16:20 Sputum, Induced/Lukens Respiratory Culture - Final Meth. resistant Staph. aureus Yeast, not Evy albicans 11/29/23 09:50 Blood Culture (Wb) - Right Hand Blood Culture - Final No growth in 5 days. 12/03/23 16:55 Stool Enteric Bacteriology - Final 12/03/23 16:55 Stool Clostridioides difficile (PCR) - Final 11/28/23 13:16 Blood Culture (Wb) - Left Hand Blood Culture - Final No growth in 5 days. 11/25/23 10:45 Blood Culture (Wb) - Anticubital Right Blood Culture - Final No growth in 5 days. 11/25/23 10:38 Blood Culture (Wb) - Anticubital Left Blood Culture - Final Meth. resistant Staph. aureus 11/25/23 11:45 Urine, Catheterized Urine Culture - Final Culture exhibits no growth. 11/26/23 11:26 Stool Clostridioides difficile (PCR) - Final 11/25/23 11:40 Mucosa - Nose SARS-CoV-2, Influenza & RSV (PCR) - Final Rhythm Strip Rhythm Strip: Sinus Tach Rate: 123 Ectopy: - (No pauses noted.) Physical Exam Narrative intubated no obvious distress s1s2 no murmurs lungs clear anteriorly abdomen soft, nontender Trace edema bilateral lower legs, overall improved ratliff + clear yellow urine in bag Assessment & Plan Assessment/Plan (1) JULIETTE (acute kidney injury): PLAN: - Acute kidney injury on probable CKD stage III. Hypervolemic, nonoliguric JULIETTE likely secondary to ATN from sepsis. He has responded well to IV diuretics. Baseline creatinine around 1.5 mg/dL. Creatinine was 2.4 on admission. Patient has responded well to lasix drip, however over the last few days serum creatinine slowly tanvir therefore Lasix drip stopped and placed on intermittent Lasix IV. Yesterday his creatinine was 2.94. Today creatinine 2.79. Continue on Lasix 40 mg IV twice daily. 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 Surgery team and ENT consulted, undergoing trach and PEG. Discussed nephrology plan with Dr. Vargas.
--- NOTE | 2023-12-15 16:08 | PN.HOSP_ITS ---
Hospitalist Note Had extensive discussion with patient's 2 brothers and [id number] in the room this afternoon, with patient's sister Tricia listening in over the phone. Discussed with them that at this point we have two options for the patient, which are either trach/peg placement or extubation. I discussed with them that our staff is highly concerned that if the patient had trach and PEG tubes placed, he would be very high risk for pulling these tubes out. Because of this, we do not think that trach/PEG placement is a reasonable option for the patient. I also discussed with them that we would not extubate the patient without having the understanding from family that we would not reintubate the patient once he has been extubated, as patient would then be in the same situation as he currently is. Family was very understanding and they were in agreement with moving forward with extubation. Since the 2 brothers and [id number] are here today, and sister Tricia lives in [place] and would not be able to make it to the hospital at any point, we will move forward with turning off his sedation and extubating him this afternoon. Patient's nurse, respiratory therapy and case management were at the bedside and in agreement with this plan. Patient's CODE STATUS changed to DNR CCA, DNI.
--- NOTE | 2023-12-15 16:14 | NURSING ---
Dr Felder here talking with family, sedation & tube feed turned off for weaning trail
--- NOTE | 2023-12-15 16:24 | CASEMGMT ---
Social Work Pt's family is at bedside. SW met with family and introduced self and role of SW. Pt's legal guardian/brother Umang Chung, brother Marko Chung and brother in law Eric are present in the room. SW spoke with family regarding steps moving forward. Physicians have spoke with Umang at length regarding need for decision of goals of care. SW offered emotional support to brothers. SW explained that if trach and peg are choosen, pt will not be able to return to [facility] and will need LTACH and likely will eventually need a new ECF. IMAN also spoke with family regarding possibilty of pt pulling tubes out if placed due to behaviors and mental health. Umang expresses understanding of this. Brothers are not in agreement on goals of care at this time. Nursing updated and nursing to notify physician of families concerns and medical questions. CARMELITA Nguyen
[2023-12-15 17:36] LABS: Bedside Glucose 235 mg/dL (74-106)
[2023-12-15] MEDS: Valproic Acid 250 MG/5 ML UDC GT (21:17)
[2023-12-15] MEDS: Atorvastatin Calcium 80 MG Tablet GT (21:17)
[2023-12-15] MEDS: traZODone 100 MG Tablet GT (21:17)
[2023-12-15] MEDS: CHLORHEXIDINE GLUC 2% CLOTH 1 EACH TOWELETTE TOPICAL (22:02)
[2023-12-15 23:28] LABS: Bedside Glucose 269 mg/dL (74-106)
[2023-12-16] VITALS (12 sets, daily range): BP systolic 125–164; BP diastolic 68–97; PULSE 92–113; RESP 17–24; TEMP 36.6–37.2; O2SAT 92–98; BMI 31.1
[2023-12-16 04:33] LABS: Hematocrit 26.6 % (40-54); Hemoglobin 8.1 g/dL (13.0-16.5); Mean Corp Hgb Conc 30.5 g/dL (32-36); Mean Corpuscular Hgb 26.3 pg (27.0-32.0); Mean Corpuscular Volume 86.4 fL (80-94); Mean Platelet Vol. 11.6 fl (6.2-12.0); POSITIVE MORPHOLOGY YES; Platelet Count 672 K/mm3 (150-450); RBC Distribution Width CV 22.1 % (11.6-14.6); RBC Distribution Width SD 64.4 fl (35.1-43.9); Red Blood Count 3.08 M/mm3 (4.6-6.2)
[2023-12-16 04:49] LABS: Scan Indicated on CBC? Y/N YES- FLAGS NOTED
[2023-12-16 05:36] LABS: Anion Gap 5 (5-15); BUN 53 mg/dL (7-18); BUN/Creat Ratio 19.3 RATIO (10-20); Calcium,Total 9.7 mg/dL (8.5-10.1); Chloride 108 mmol/L (98-107); Creatinine, Serum 2.75 mg/dL (0.70-1.30); EST Glomerular Filtration Rate 25 mL/min (>60); Est Glom Filt Rate - Afr Amer 30 mL/min (>60); Estimated Creatinine Clearance 31.53 ml/min; Glucose 249 mg/dL (74-106); Potassium 4.3 mmol/L (3.5-5.1); Sodium Level 143 mmol/L (136-145)
[2023-12-16] MEDS: Levothyroxine 50 MCG Tablet GT (05:46)
[2023-12-16] MEDS: 0.9% Saline Lock 10 ML Syringe IV (05:46)
[2023-12-16] MEDS: Nystatin Powder 15gm Bottle 1 APPLIC TOPICAL ×3 (05:46→19:51)
[2023-12-16] MEDS: Insulin Lispro 100 UNIT/ML INSULN.PEN SC ×3 (05:47→17:02)
[2023-12-16 06:09] LABS: Differential Comment SCANNED
--- NOTE | 2023-12-16 07:02 | PN.CC_ITS ---
Assessment & Plan Assessment/Plan (1) MRSA bacteremia: (2) Sepsis: PLAN: Plan RECOMMENDATIONS: 1. Supplemental oxygen to maintain saturations at or above 90%. 2. Dietary advancement once swallow evaluation completed. 3. Antimicrobials per ID recommendations. 4. Ongoing diuresis as tolerated by hemodynamics and renal function. 5. Encourage incentive spirometer use. 6. The patient is medically stable for transfer out of the intensive care unit. Will sign off from a critical care perspective. IMPRESSIONS: 1. Sepsis secondary to MRSA bacteremia It is suspected that the patient developed post influenza pneumonia resulting in secondary bacteremia. The patient remains on antimicrobials per ID recommendations. No vegetations were seen on TTE. The patient remains hemodynamically stable. 2. Acute combined respiratory failure The patient was ultimately intubated in the setting of acute CO2 retention. He did have evidence of MRSA pneumonia, for which he remains on antibiotics. Although the patient did require invasive mechanical ventilatory support, he was able to be successfully extubated on December 14 and is doing relatively well from a respiratory perspective. There are no plans for reintubation if the patient decompensates from a respiratory perspective. Continue ongoing attempts at diuresis as tolerated by hemodynamics and renal function, as the patient is volume overloaded for the hospitalization. Mobilize patient as tolerated. 3. History of atrial fibrillation/sinus pauses/coronary artery disease Cardiology is currently following to assist with medical management. 4. History of paranoid schizophrenia/chronic kidney disea se/hypertension/diabetes mellitus/hypothyroidism Complicates care, management, recovery and prognosis. Continue supportive measures as noted above along with basal and sliding scale insulin coverage. Diet can be advanced once speech is evaluated the patient. This note was generated with [employer] dictation software. It may contain incorrect words, spelling, and punctuation that were not noted in checking the note before signing. Subjective Subjective The patient was seen and examined at the bedside this morning. Events from the last 24 hours have been reviewed. Following extensive conversation with the patient's family by multiple providers yesterday, the ultimate decision was made to transition the patient to DNR CCA without intubation and proceed with extubation. They have elected not to pursue tracheostomy and PEG tube placement. The patient is currently afebrile, hemodynamically stable and m aintaining appropriate oxygen saturations on 2 L/min via nasal cannula. He remains overall net positive from a volume perspective. Creatinine is stable at 2.75. Objective Data Objective Data The patient's most recent lab work, culture data and imaging studies have all been personally reviewed. Sputum culture dated December 02 was positive for MRSA. Vital Signs: Vital Signs Temp Pulse Resp BP Pulse Ox O2 Del Method O2 Flow Rate 97.9 F 102 H 21 H 138/75 H 97 Nasal Cannula 2 12/16/23 06:00 12/16/23 06:00 12/16/23 06:00 12/16/23 04:00 12/16/23 06:00 12/16/23 06:00 12/16/23 06:00 FiO2 40 12/15/23 15:40 Oxygen Flow Rate (L/min) 2 Oxygen Delivery Method Nasal Cannula Weight: 217 lb 6.012 oz Body Mass Index (BMI) 31.1 Intake & Output: Intake and Output for Last 24 Hours 12/14/23 12/15/23 12/16/23 23:59 23:59 23:59 Intake Total 2258.62 / 2365.79 2437.44 / 2437.44 Output Total 1800 / 2150 3050 / 3050 1100 / 1100 Balance 458.62 / 215.79 -612.56 / -612.56 -1100 / -1100 Medical Nutrition Assessment Dietitian: Malnutrition Criteria Met Start: 12/01/23 09:36 Freq: Status: Active Protocol: Document 12/11/23 09:56 SARAHI (Rec: 12/11/23 09:56 [id number]) Nutrition Malnutrition Evidence of Malnutrition Exists Yes Malnutrition (severe): Acute Illness/Injury Evidenced By Suboptimal Energy Intake ( Severe),Weight Loss (Severe) Intake Problem Inadequate Oral Intake Etiology related to decreased ability to consume sufficient energy to meet estimated nutrient needs Signs/Symptoms as evidenced by extended NPO status x 10 days and intubation with need for enteral nutrition. Status Active Problem Clinical Problem Acute Disease or Injury Related Malnutrition Etiology severe, acute malnutrition related to inadequate energy intake d/t swallowing difficulties Signs/Symptoms as evidenced by unintentional 4% wt loss < 5 days, PO intake meeting <50% of estimated energy needs x 6 days Status Active Problem Recommendation Dietitian Recommendations/Changes NPO while intubated; Continue via OGT- Vital AF 1.2 Carloz at goal rate of 60mL/hour w/ decreased flush of 50mL H2O flush every 4 hours to provide 1728 calories, 108 g protein, and 1467mL total fluid/day. Lab / Micro Data Attestation: I reviewed the patient's lab results. 12/16/23 04:12 12/16/23 04:12 Labs: Laboratory Results - last 24 hr 12/14/23 03:40: Diff Path Review Reviewed 12/15/23 11:21: POC Glucose 177 H 12/15/23 17:18: POC Glucose 235 H 12/15/23 23:05: POC Glucose 269 H 12/16/23 04:12: WBC 13.0 H, RBC 3.08 L, Hgb 8.1 L, Hct 26.6 L, MCV 86.4, MCH 26.3 L, MCHC 30.5 L, RDW Std Deviation 64.4 H, RDW Coeff of Saman 22.1 H, Plt Coun t 672 H, MPV 11.6, Differential Comment SCANNED, Sodium 143, Potassium 4.3, C hloride 108 H, Carbon Dioxide 30.0, Anion Gap 5, BUN 53 H, Creatinine 2.75 H, Estim Creat Clear Calc 31.53, Est GFR (MDRD) Af Amer 30 L, Est GFR (MDRD) Non-Af 25 L, BUN/Creatinine Ratio 19.3, Glucose 249 H, Calcium 9.7 Micro: Microbiology 12/03/23 16:20 Sputum, Induced/Lukens Gram Stain - Final 12/03/23 16:20 Sputum, Induced/Lukens Respiratory Culture - Final Meth. resistant Staph. aureus Yeast, not Evy albicans 11/29/23 09:50 Blood Culture (Wb) - Right Hand Blood Culture - Final No growth in 5 days. 12/03/23 16:55 Stool Enteric Bacteriology - Final 12/03/23 16:55 Stool Clostridioides difficile (PCR) - Final 11/28/23 13:16 Blood Culture (Wb) - Left Hand Blood Culture - Final No growth in 5 days. 11/25/23 10:45 Blood Culture (Wb) - Anticubital Right Blood Culture - Final No growth in 5 days. 11/25/23 10:38 Blood Culture (Wb) - Anticubital Left Blood Culture - Final Meth. resistant Staph. aureus 11/25/23 11:45 Urine, Catheterized Urine Culture - Final Culture exhibits no growth. 11/26/23 11:26 Stool Clostridioides difficile (PCR) - Final 11/25/23 11:40 Mucosa - Nose SARS-CoV-2, Influenza & RSV (PCR) - Final ABG Data ABG results: ABG 12/12/23 06:07 Specimen Type ART Sample Site R Radial pH 7.46 H Bicarbonate Actual 29.8 H Total CO2 31 Base Excess 6 H O2 Saturation 91 L O2 % 35.0 ABG pCO2 41.8 ABG pO2 58 L Polo Test Positive Respiration Rate 16 O2 Delivery Device ET Tube Vent Mode AC Tidal Volume 450.0 POC PEEP 5 Radiography Diagnostic Testing: Radiology Impression Chest X-Ray 12/12/23 06:00 IMPRESSION: Increased right basilar infiltrate or atelectasis. No change left pleural effusion and left basilar atelectasis. Electronically Signed: Rema Jaffe MD at 8:17 EDT , Rhythm Strip Rhythm Strip: Sinus Tach Rate: 123 Ectopy: - (No pauses noted.) Physical Exam Const alert and no apparent distress Constitutional Narrative: Remains confused. General Appearance: cooperative HEENT normocephalic and head/scalp atraumatic Eyes PERRL, EOMs intact bilaterally and conjunctivae normal Neck supple General: trachea midline Chest inspection of chest normal Resp normal respiratory effort Auscultation: diminished lung sounds Cardio S1 normal heart sound and S2 normal heart sound Rate: tachycardic GI normal to inspection, nondistended, normoactive bowel sounds Extremity General Extremity: Negative for clubbing or edema Skin no rashes or lesions noted Neuro CN's II-XII intact bilaterally, moves all extremities and no focal motor deficits Psych Activity / Motor Behavior: restless Charges/Coding Visit Charges Inpatient E&M: 96807 Subs Hosp L3
[2023-12-16] MEDS: Menthol/Lanolin/Calamine/Znox 113 GM Tube 1 APPLIC TOPICAL ×2 (08:49→23:11)
[2023-12-16] MEDS: Aspirin 81 MG TAB.CHEW PO (08:49)
[2023-12-16] MEDS: Polyethylene Glycol 3350 17 GM PACKET PO (08:50)
[2023-12-16] MEDS: Furosemide 40 MG/4 ML Vial IV ×2 (08:50→19:58)
[2023-12-16] MEDS: Senna/Docusate Sodium 1 Tablet 2 TABLET PO ×2 (08:50→19:50)
[2023-12-16] MEDS: QUEtiapine 25 MG Tablet 50 MG PO ×2 (08:50→19:51)
[2023-12-16] MEDS: Insulin Glargine-YFGN 100 UNIT/ML Pen 15 UNIT SC ×2 (08:51→19:55)
[2023-12-16] MEDS: Heparin Injection (Vial) 5,000 UNIT/ML VIAL 5000 UNIT SC ×2 (08:51→19:54)
[2023-12-16] MEDS: MEDROXYPROGESTERONE ACETATE 10 MG TABLET PO ×2 (08:51→19:55)
[2023-12-16 09:47] LABS: Pathologist Review Reviewed
--- NOTE | 2023-12-16 09:51 | CASEMGMT ---
Social Work Pt is doing well after extubation. [facility] [place] back when medically ready. Green sheet on chart to facilitate weekend discharge in the event pt is medically ready for discharge. Updates sent to [facility] [place]. Plan: Return to [facility] [place], when medically ready CARMELITA Nguyen
--- NOTE | 2023-12-16 10:43 | PCM.PN.REN ---
Subjective Subjective Follow-up on acute kidney injury secondary to ATN, fluid overload. He is doing better, he is extubated, on nasal cannula oxygen, communicates easily. Denies any symptoms Objective Data Objective Data Vital Signs: Vital Signs Temp Pulse Resp BP Pulse Ox O2 Del Method O2 Flow Rate 98.5 F 108 H 18 133/97 H 94 Nasal Cannula 2 12/16/23 08:00 12/16/23 08:00 12/16/23 08:00 12/16/23 08:00 12/16/23 08:00 12/16/23 08:00 12/16/23 08:00 FiO2 40 12/15/23 15:40 Oxygen Flow Rate (L/min) 2 Oxygen Delivery Method Nasal Cannula Weight: 98.6 kg Body Mass Index (BMI) 31.1 Intake & Output: Intake and Output for Last 24 Hours 12/14/23 12/15/23 12/16/23 23:59 23:59 23:59 Intake Total 2258.62 / 2365.79 2437.44 / 2437.44 Output Total 1800 / 2150 3050 / 3050 1100 / 1100 Balance 458.62 / 215.79 -612.56 / -612.56 -1100 / -1100 Medical Nutrition Assessment Dietitian: Malnutrition Criteria Met Start: 12/01/23 09:36 Freq: Status: Active Protocol: Document 12/11/23 09:56 SARAHI (Rec: 12/11/23 09:56 [id number]) Nutrition Malnutrition Evidence of Malnutrition Exists Yes Malnutrition (severe): Acute Illness/Injury Evidenced By Suboptimal Energy Intake ( Severe),Weight Loss (Severe) Intake Problem Inadequate Oral Intake Etiology related to decreased ability to consume sufficient energy to meet estimated nutrient needs Signs/Symptoms as evidenced by extended NPO status x 10 days and intubation with need for enteral nutrition. Status Active Problem Clinical Problem Acute Disease or Injury Related Malnutrition Etiology severe, acute malnutrition related to inadequate energy intake d/t swallowing difficulties Signs/Symptoms as evidenced by unintentional 4% wt loss < 5 days, PO intake meeting <50% of estimated energy needs x 6 days Status Active Problem Recommendation Dietitian Recommendations/Changes NPO while intubated; Continue via OGT- Vital AF 1.2 Carloz at goal rate of 60mL/hour w/ decreased flush of 50mL H2O flush every 4 hours to provide 1728 calories, 108 g protein, and 1467mL total fluid/day. Lab / Micro Data Attestation: I reviewed the patient's lab results. 12/16/23 04:12 12/16/23 04:12 Labs: Laboratory Results - last 24 hr 12/15/23 03:35: Diff Path Review Reviewed 12/15/23 11:21: POC Glucose 177 H 12/15/23 17:18: POC Glucose 235 H 12/15/23 23:05: POC Glucose 269 H 12/16/23 04:12: WBC 13.0 H, RBC 3.08 L, Hgb 8.1 L, Hct 26.6 L, MCV 86.4, MCH 26.3 L, MCHC 30.5 L, RDW Std Deviation 64.4 H, RDW Coeff of Saman 22.1 H, Plt Count 672 H, MPV 11.6, Differential Comment SCANNED, Sodium 143, Potassium 4.3, Chloride 108 H, Carbon Dioxide 30.0, Anion Gap 5, BUN 53 H, Creatinine 2.75 H, Estim Creat Clear Calc 31.53, Est GFR (MDRD) Af Amer 30 L, Est GFR (MDRD) Non-Af 25 L, BUN/Creatinine Ratio 19.3, Glucose 249 H, Calcium 9.7 Micro: Microbiology 12/03/23 16:20 Sputum, Induced/Lukens Gram Stain - Final 12/03/23 16:20 Sputum, Induced/Lukens Respiratory Culture - Final Meth. resistant Staph. aureus Yeast, not Evy albicans 11/29/23 09:50 Blood Culture (Wb) - Right Hand Blood Culture - Final No growth in 5 days. 12/03/23 16:55 Stool Enteric Bacteriology - Final 12/03/23 16:55 Stool Clostridioides difficile (PCR) - Final 11/28/23 13:16 Blood Culture (Wb) - Left Hand Blood Culture - Final No growth in 5 days. 11/25/23 10:45 Blood Culture (Wb) - Anticubital Right Blood Culture - Final No growth in 5 days. 11/25/23 10:38 Blood Culture (Wb) - Anticubital Left Blood Culture - Final Meth. resistant Staph. aureus 11/25/23 11:45 Urine, Catheterized Urine Culture - Final Culture exhibits no growth. 11/26/23 11:26 Stool Clostridioides difficile (PCR) - Final 11/25/23 11:40 Mucosa - Nose SARS-CoV-2, Influenza & RSV (PCR) - Final Rhythm Strip Rhythm Strip: Sinus Tach Rate: 123 Ectopy: - (No pauses noted.) Physical Exam Const alert, no apparent distress and average body habitus General Appearance: well developed Orientation / Consciousness: oriented to person HEENT normocephalic Head and Scalp: atraumatic Resp no use of accessory muscles Auscultation: diminished lung sounds Cardio regular rate Cardio Narrative: Tachycardic GI non-tender and non-distended Auscultation: normoactive bowel sounds Palpation: soft external exam normal Extremity no clubbing, cyanosis or edema Neuro Sensorium / Orientation: awake and alert Psych cooperative Assessment & Plan Assessment/Plan (1) JULIETTE (acute kidney injury): PLAN: Acute kidney injury, creatinine started to improve once again after coming off Lasix drip. Urine output is still ample, fluid balance is negative every day. Definitely continue with diuretics, monitoring kidney function. The dose of Lasix could be reduced if creatinine stalls.
[2023-12-16] MEDS: Pantoprazole Sodium 40 MG in 0.9% Normal Saline (100mL MB+) 100 ML 330 MG IV (11:27)
[2023-12-16] MEDS: Valproic Acid 250 MG/5 ML UDC 500 MG PO ×2 (12:02→20:03)
[2023-12-16 12:23] LABS: Bedside Glucose 234 mg/dL (74-106)
--- NOTE | 2023-12-16 15:58 | PCM.PN.HOSP ---
Reason for Visit Reason for Visit: Diagnoses Sepsis, unspecified organism (11/25/23) Methicillin resistant Staphylococcus aureus infection as the cause of diseases classified elsewhere (11/25/23) Schizophrenia, unspecified (11/25/23) Essential (primary) hypertension (11/25/23) Unspecified atrial fibrillation (11/25/23) Pneumonia, unspecified organism (11/25/23) Respiratory failure, unspecified, unspecified whether with hypoxia or hypercapnia (11/25/23) Acute kidney failure, unspecified (11/25/23) Bacteremia (11/25/23) Subjective Subjective Patient was extubated to nasal cannula yesterday and did well overnight. Since morning at bedside. He was breathing comfortably on 2 L nasal cannula with good oxygen saturations. He was sitting up in bed and making appropriate eye contact with me but not answering all questions for me. However, per family and per my previous interaction with him on a recent hospitalization 3 to 4 weeks ago this was close to his baseline then. His main concern was that he wanted to eat and drink. He denied any other acute concerns. Objective Data Objective Data Vital Signs: Vital Signs Temp Pulse Resp BP Pulse Ox O2 Del Method O2 Flow Rate 99.0 F 92 17 127/84 H 95 Nasal Cannula 2 12/16/23 14:00 12/16/23 14:00 12/16/23 14:00 12/16/23 14:00 12/16/23 14:00 12/16/23 14:00 12/16/23 14:00 FiO2 40 12/15/23 15:40 Oxygen Flow Rate (L/min) 2 Oxygen Delivery Method Nasal Cannula Weight: 98.6 kg Body Mass Index (BMI) 31.1 Intake & Output: Intake and Output for Last 24 Hours 12/14/23 12/15/23 12/16/23 23:59 23:59 23:59 Intake Total 2258.62 / 2365.79 2437.44 / 2437.44 200 / 200 Output Total 1800 / 2150 3050 / 3050 2049 / 2049 Balance 458.62 / 215.79 -612.56 / -612.56 -1850 / -1850 Medical Nutrition Assessment Dietitian: Malnutrition Criteria Met Start: 12/01/23 09:36 Freq: Status: Active Protocol: Document 12/11/23 09:56 LO (Rec: 12/11/23 09:56 [id number]) Nutrition Malnutrition Evidence of Malnutrition Exists Yes Malnutrition (severe): Acute Illness/Injury Evidenced By Suboptimal Energy Intake ( Severe),Weight Loss (Severe) Intake Problem Inadequate Oral Intake Etiology related to decreased ability to consume sufficient energy to meet estimated nutrient needs Signs/Symptoms as evidenced by extended NPO status x 10 days and intubation with need for enteral nutrition. Status Active Problem Clinical Problem Acute Disease or Injury Related Malnutrition Etiology severe, acute malnutrition related to inadequate energy intake d/t swallowing difficulties Signs/Symptoms as evidenced by unintentional 4% wt loss < 5 days, PO intake meeting <50% of estimated energy needs x 6 days Status Active Problem Recommendation Dietitian Recommendations/Changes NPO while intubated; Continue via OGT- Vital AF 1.2 Carloz at goal rate of 60mL/hour w/ decreased flush of 50mL H2O flush every 4 hours to provide 1728 calories, 108 g protein, and 1467mL total fluid/day. Lab / Micro Data 12/16/23 04:12 12/16/23 04:12 Labs: Laboratory Results - last 24 hr 12/15/23 03:35: Diff Path Review Reviewed 12/15/23 17:18: POC Glucose 235 H 12/15/23 23:05: POC Glucose 269 H 12/16/23 04:12: WBC 13.0 H, RBC 3.08 L, Hgb 8.1 L, Hct 26.6 L, MCV 86.4, MCH 26.3 L, MCHC 30.5 L, RDW Std Deviation 64.4 H, RDW Coeff of Saman 22.1 H, Plt Count 672 H, MPV 11.6, Differential Comment SCANNED, Sodium 143, Potassium 4.3, Chloride 108 H, Carbon Dioxide 30.0, Anion Gap 5, BUN 53 H, Creatinine 2.75 H, Estim Creat Clear Calc 31.53, Est GFR (MDRD) Af Amer 30 L, Est GFR (MDRD) Non-Af 25 L, BUN/Creatinine Ratio 19.3, Glucose 249 H, Calcium 9.7 12/16/23 12:00: POC Glucose 234 H Micro: Microbiology 12/03/23 16:20 Sputum, Induced/Lukens Gram Stain - Final 12/03/23 16:20 Sputum, Induced/Lukens Respiratory Culture - Final Meth. resistant Staph. aureus Yeast, not Evy albicans 11/29/23 09:50 Blood Culture (Wb) - Right Hand Blood Culture - Final No growth in 5 days. 12/03/23 16:55 Stool Enteric Bacteriology - Final 12/03/23 16:55 Stool Clostridioides difficile (PCR) - Final 11/28/23 13:16 Blood Culture (Wb) - Left Hand Blood Culture - Final No growth in 5 days. 11/25/23 10:45 Blood Culture (Wb) - Anticubital Right Blood Culture - Final No growth in 5 days. 11/25/23 10:38 Blood Culture (Wb) - Anticubital Left Blood Culture - Final Meth. resistant Staph. aureus 11/25/23 11:45 Urine, Catheterized Urine Culture - Final Culture exhibits no growth. 11/26/23 11:26 Stool Clostridioides difficile (PCR) - Final 11/25/23 11:40 Mucosa - Nose SARS-CoV-2, Influenza & RSV (PCR) - Final Rhythm Strip Rhythm Strip: Sinus Tach Rate: 123 Ectopy: - (No pauses noted.) Physical Exam Const alert and no apparent distress Constitutional Narrative: Elderly male, obese, sitting up fairly comfortably in bed, breathing comfortably on 2 L nasal cannula, making appropriate eye contact but not answering all questions appropriately but notably is about his baseline, in no acute distress. General Appearance: cooperative and comfortable HEENT normocephalic, head/scalp atraumatic, hearing grossly normal bilaterally and nasal mucous membranes and turbinates normal Eyes PERRL, EOMs intact bilaterally and conjunctivae normal Neck full ROM Chest inspection of chest normal Resp normal respiratory effort and no use of accessory muscles Resp Narrative: Breathing comfortably on 2 L nasal cannula with good oxygen saturations. Mildly decreased breath sounds throughout bilaterally, no wheezing or crackles noted, much improved from admission. Cardio regular rate, regular rhythm, no murmurs and peripheral pulses 2+ throughout GI normal to inspection, nondistended, normoactive bowel sounds, soft to palpation, non-tender and non-distended Back/Spine normal ROM Extremity normal to inspection, full ROM and no pedal edema Skin no rashes or lesions noted Neuro moves all extremities and no focal motor deficits Assessment & Plan Assessment/Plan (1) MRSA bacteremia: (2) Sepsis: (3) Pneumonia: (4) Respiratory failure: (5) JULIETTE (acute kidney injury): PLAN: Plan Patient is a 63-year-old male who presented to [facility] ED on 11/25/2023 with worsening shortness of breath. 1. Acute hypoxic and hypercapnic respiratory failure, improving Initially hypoxia presumed secondary to secondary MRSA pneumonia after recent flu pneumonia. Had worsening mental status and hypoxia on 12/02 requiring intubation. She was found to be hypercapnic postintubation. This was suspected secondary to decreased respiratory drive from possible overmedication as notable below. ? Bull Gang Worker following. Patient was extubated on 12/14 after 13 days on the ventilator. Had lengthy discussion with family prior to extubation and patient was changed to DNR CCA, DNI status. Fortunately, patient has done very well since extubation. Breathing comfortably and satting well on 2 L nasal cannula on 12/15. Stable for transfer to [facility] on 12/15. Continue to wean supplemental oxygen as able. Continue diuresis as noted below. 2. Hypotension with concern for shock, resolved; sepsis without shock secondary to MRSA bacteremia Initially presented with sepsis and found to have MRSA bacteremia presumed secondary to a MRSA pneumonia that developed post influenza pneumonia. TTE showed no valvular abnormalities. Developed hypotension after intubation and sedation, suspected that hypotension is likely secondary to sedation requirements. ? Bull Gang Worker and ID following. Hemodynamically stable, has been off Levophed since morning of 12/05. Meropenem started postintubation on 12/03, discontinued 12/07 after negative cultures. Continue vancomycin, appreciate ID recs on length of course needed. 3. Acute metabolic encephalopathy Patient noted to have worsening mentation on 11/27 of unclear etiology. Neurology was consulted for questionable seizure activity. MRI brain negative, EEG negative. Lab workup fairly benign. Neurology suspected toxic metabolic encephalopathy that was multifactorial in setting of sepsis, pneumonia, JULIETTE, delirium and polypharmacy from sedative medications of Ativan, Haldol and DPA, as well as a poor mental status at baseline. Patient required intubation on 12/02 as noted above. ? Neurology followed. Extubated on 12/14 as noted above. Home Haldol and Ativan were held while patient was intubated, was initiated on Seroquel and Depakene at that time. Will continue Seroquel and Depakene for now and continue to hold Haldol and Ativan. Monitor. 4. JULIETTE on suspected CKD stage IIIb, stable Creatinine 2.05 on admit, baseline creatinine around 1.8-2.1. Noted to have acutely worsened creatinine to 3.08 on 11/28 which then recovered back to baseline by 12/01. However, again had worsening of creatinine to 3.27 on 12/03 with decreased urine output suspected to be secondary to ATN from sepsis. ? Nephrology following. Creatinine has remained stable around 2.7-2.9 since 12/08. Transitioned off Lasix drip to IV Lasix 40 mg twice daily on 12/12, will continue this for now. Continue to monitor daily BMP and urine output. 5. Volume overload, improved ? Patient noted to be +10 L from volume status standpoint on 12/04, secondary to heavy IV fluids administered in setting of sepsis and concern for shock as noted above. Bull Gang Worker and nephrology following as above. Diuresing as noted above. 6. A-fib with RVR, bradycardia with sinus pauses ? Cardiology evaluated on 11/29. Patient was noted to be on high-dose beta-diogo at that time and had some pauses on monitoring, unclear if patient was symptomatic with these pauses. Not an urgent pacemaker candidate given bacteremia. Beta-diogo discontinued. Has had improvement in heart rate and no recent sinus pauses. Continue cardiac monitoring. 7. Hypernatremia, resolved ? Nephrology following as above. Presumed secondary to dehydration. Sodium peaked at 152 on 12/02, returned to normal range by 12/05. Monitoring BMP daily as noted above. 8. Acute on chronic anemia, stable ? Known history of iron deficiency anemia, was on home iron supplement. Hemoglobin 10.5 on admit, slowly downtrending since then. Hemoglobin riky of 6.9 on , given 1 unit of packed red blood cells at that time with good improvement in hemoglobin to around 8. Stable. No active signs of bleeding. Continue iron supplement. Continue to monitor CBC daily. 9. Thrombocytosis, improving ? Platelet count peaked on 12/13 at 774, now downtrending. Suspect due to acute stress state. Monitor daily CBC. Chronic medical conditions: ? Obesity: BMI 32 on admit. Complicates hospital course, care and prognosis. ? Paranoid schizophrenia/anxiety and depression/sexual aggression: Lives in [facility]. Continue home Depakote, holding home Haldol and Ativan as noted above. ? Type 2 diabetes mellitus: Home regimen of insulin glargine 35 units at night, lispro 17 units with meals, metformin 1000 mg twice daily, Jardiance 25 mg daily. Continue Lantus 15 units twice daily, Humalog ? Hypothyroidism: Continue home Synthroid. ? CAD/hypertension/hyperlipidemia: Continue home aspirin, statin, amlodipine. Holding home Lopressor due to bradycardia as noted above. Holding home losartan for JULIETTE. ? Tobacco abuse: Nicotine replacement therapy available as needed. DVT prophylaxis: Heparin subcu CODE STATUS: Full code, verified Expected disposition: SNF, TBD Total clinical time spent by myself addressing the patient's medical issues, reviewing all the data, and collaborating with patient's care team: 35 minutes. Charges/Coding Visit Charges Inpatient E&M: 81923 Subs Hosp L2
[2023-12-16 17:15] LABS: Bedside Glucose 176 mg/dL (74-106)
--- NOTE | 2023-12-16 17:37 | NURSING ---
Patient with very moist wet cough after sips of water, nursing decision made to make NPO, speech therapy to see tomorrow to re-evaluate. Report given to MS RN at this time.
[2023-12-16] MEDS: traZODone 100 MG Tablet PO (19:50)
[2023-12-16] MEDS: Atorvastatin Calcium 80 MG Tablet PO (19:53)
[2023-12-16] MEDS: Valproic Acid 250 MG/5 ML UDC PO (20:03)
[2023-12-16 20:59] LABS: Bedside Glucose 163 mg/dL (74-106)
[2023-12-17 03:58] VITALS: BP 159/95; PULSE 100; RESP 18; TEMP 37.1; O2SAT 93
[2023-12-17 04:09] VITALS: BMI 31.1
[2023-12-17 05:51] LABS: Hematocrit 28.2 % (40-54); Hemoglobin 8.6 g/dL (13.0-16.5); Mean Corp Hgb Conc 30.5 g/dL (32-36); Mean Corpuscular Hgb 26.8 pg (27.0-32.0); Mean Corpuscular Volume 87.9 fL (80-94); Mean Platelet Vol. 10.8 fl (6.2-12.0); POSITIVE COUNT YES; POSITIVE MORPHOLOGY YES; RBC Distribution Width CV 21.5 % (11.6-14.6); RBC Distribution Width SD 64.3 fl (35.1-43.9); Red Blood Count 3.21 M/mm3 (4.6-6.2)
[2023-12-17 06:08] LABS: Anion Gap 7 (5-15); BUN 51 mg/dL (7-18); BUN/Creat Ratio 18.2 RATIO (10-20); Calcium,Total 9.7 mg/dL (8.5-10.1); Chloride 110 mmol/L (98-107); EST Glomerular Filtration Rate 24 mL/min (>60); Est Glom Filt Rate - Afr Amer 29 mL/min (>60); Estimated Creatinine Clearance 30.97 ml/min; Glucose 285 mg/dL (74-106); Sodium Level 146 mmol/L (136-145)
[2023-12-17] MEDS: Levothyroxine 50 MCG Tablet PO (06:16)
[2023-12-17] MEDS: Nystatin Powder 15gm Bottle 1 APPLIC TOPICAL ×3 (06:16→20:45)
[2023-12-17] MEDS: Insulin Lispro 100 UNIT/ML INSULN.PEN SC ×3 (06:17→20:51)
[2023-12-17 06:35] LABS: Platelet Count 800 K/mm3 (150-450)
[2023-12-17 06:36] LABS: Scan Indicated on CBC? Y/N YES- FLAGS NOTED
[2023-12-17 06:37] LABS: Differential Comment SCANNED
[2023-12-17 06:53] LABS: Bedside Glucose 248 mg/dL (74-106)
[2023-12-17 07:33] VITALS: O2SAT 94
[2023-12-17 08:04] VITALS: BP 148/88; PULSE 98; RESP 18; TEMP 37.2; O2SAT 94
[2023-12-17] MEDS: Lactated Ringers 1,000 ML 125 ML IV (08:10)
[2023-12-17] MEDS: 0.9% Saline Lock 10 ML Syringe IV (08:11)
[2023-12-17] MEDS: Menthol/Lanolin/Calamine/Znox 113 GM Tube 1 APPLIC TOPICAL ×2 (08:14→20:43)
[2023-12-17] MEDS: MEDROXYPROGESTERONE ACETATE 10 MG TABLET PO ×2 (08:14→20:46)
[2023-12-17] MEDS: QUEtiapine 25 MG Tablet 50 MG PO ×2 (08:15→20:44)
[2023-12-17] MEDS: Heparin Injection (Vial) 5,000 UNIT/ML VIAL 5000 UNIT SC ×2 (08:15→20:45)
[2023-12-17] MEDS: Valproic Acid 250 MG/5 ML UDC 500 MG PO ×2 (08:15→20:47)
[2023-12-17] MEDS: Polyethylene Glycol 3350 17 GM PACKET PO (08:15)
[2023-12-17] MEDS: Insulin Glargine-YFGN 100 UNIT/ML Pen 15 UNIT SC ×2 (08:16→20:51)
[2023-12-17] MEDS: Aspirin 81 MG TAB.CHEW PO (08:16)
[2023-12-17 09:05] LABS: Vancomycin, Trough Level 10.9 ug/mL (5.0-15.0)
[2023-12-17] MEDS: Pantoprazole Sodium 40 MG in 0.9% Normal Saline (100mL MB+) 100 ML 330 MG IV (09:40)
[2023-12-17] MEDS: Vancomycin IV 1,000 MG/200 ML BAG 200 MG IV (10:23)
--- NOTE | 2023-12-17 11:14 | PCM.PN.HOSP ---
Reason for Visit Reason for Visit: Diagnoses Sepsis, unspecified organism (11/25/23) Methicillin resistant Staphylococcus aureus infection as the cause of diseases classified elsewhere (11/25/23) Schizophrenia, unspecified (11/25/23) Essential (primary) hypertension (11/25/23) Unspecified atrial fibrillation (11/25/23) Pneumonia, unspecified organism (11/25/23) Respiratory failure, unspecified, unspecified whether with hypoxia or hypercapnia (11/25/23) Acute kidney failure, unspecified (11/25/23) Bacteremia (11/25/23) Subjective Subjective No acute events overnight. Patient seen at bedside this morning. Laying comfortably in bed, no acute distress. Mentation appears improved even from yesterday. Was answering questions with longer answers for me this morning. His main concern was that he wanted some water as he was feeling thirsty. No other acute concerns this morning. Objective Data Objective Data Vital Signs: Vital Signs Temp Pulse Resp BP Pulse Ox O2 Del Method O2 Flow Rate 98.9 F 98 18 148/88 H 94 Room Air 2 12/17/23 08:04 12/17/23 08:04 12/17/23 08:04 12/17/23 08:04 12/17/23 08:04 12/17/23 08:04 12/16/23 20:45 FiO2 40 12/15/23 15:40 Oxygen Flow Rate (L/min) 2 Oxygen Delivery Method Room Air Weight: 98.6 kg Body Mass Index (BMI) 31.1 Intake & Output: Intake and Output for Last 24 Hours 12/15/23 12/16/23 12/17/23 23:59 23:59 23:59 Intake Total 2437.44 / 2437.44 200 / 200 322.50 / 322.50 Output Total 3050 / 3050 3150 / 3150 500 / 500 Balance -612.56 / -612.56 -2950 / -2950 -177.50 / -177.50 Medical Nutrition Assessment Dietitian: Malnutrition Criteria Met Start: 12/01/23 09:36 Freq: Status: Active Protocol: Document 12/11/23 09:56 [email or web address] (Rec: 12/11/23 09:56 LO [id number]) Nutrition Malnutrition Evidence of Malnutrition Exists Yes Malnutrition (severe): Acute Illness/Injury Evidenced By Suboptimal Energy Intake ( Severe),Weight Loss (Severe) Intake Problem Inadequate Oral Intake Etiology related to decreased ability to consume sufficient energy to meet estimated nutrient needs Signs/Symptoms as evidenced by extended NPO status x 10 days and intubation with need for enteral nutrition. Status Active Problem Clinical Problem Acute Disease or Injury Related Malnutrition Etiology severe, acute malnutrition related to inadequate energy intake d/t swallowing difficulties Signs/Symptoms as evidenced by unintentional 4% wt loss < 5 days, PO intake meeting <50% of estimated energy needs x 6 days Status Active Problem Recommendation Dietitian Recommendations/Changes NPO while intubated; Continue via OGT- Vital AF 1.2 Carloz at goal rate of 60mL/hour w/ decreased flush of 50mL H2O flush every 4 hours to provide 1728 calories, 108 g protein, and 1467mL total fluid/day. Lab / Micro Data 12/17/23 05:26 12/17/23 05:26 Labs: Laboratory Results - last 24 hr 12/16/23 12:00: POC Glucose 234 H 12/16/23 16:58: POC Glucose 176 H 12/16/23 19:45: POC Glucose 163 H 12/17/23 05:26: WBC 12.0 H, RBC 3.21 L, Hgb 8.6 L, Hct 28.2 L, MCV 87.9, MCH 26.8 L, MCHC 30.5 L, RDW Std Deviation 64.3 H, RDW Coeff of Saman 21.5 H, Plt Count 800 H*, MPV 10.8, Differential Comment SCANNED, Diff Path Review January, Sodium 146 H, Potassium 4.0, Chloride 110 H, Carbon Dioxide 29.0, Anion Gap 7, BUN 51 H, Creatinine 2.80 H, Estim Creat Clear Calc 30.97, Est GFR (MDRD) Af Amer 29 L, Est GFR (MDRD) Non-Af 24 L, BUN/Creatinine Ratio 18.2, Glucose 285 H, Calcium 9.7 12/17/23 06:15: POC Glucose 248 H 12/17/23 08:30: Vancomycin Trough 10.9 Micro: Microbiology 12/03/23 16:20 Sputum, Induced/Lukens Gram Stain - Final 12/03/23 16:20 Sputum, Induced/Lukens Respiratory Culture - Final Meth. resistant Staph. aureus Yeast, not Evy albicans 11/29/23 09:50 Blood Culture (Wb) - Right Hand Blood Culture - Final No growth in 5 days. 12/03/23 16:55 Stool Enteric Bacteriology - Final 12/03/23 16:55 Stool Clostridioides difficile (PCR) - Final 11/28/23 13:16 Blood Culture (Wb) - Left Hand Blood Culture - Final No growth in 5 days. 11/25/23 10:45 Blood Culture (Wb) - Anticubital Right Blood Culture - Final No growth in 5 days. 11/25/23 10:38 Blood Culture (Wb) - Anticubital Left Blood Culture - Final Meth. resistant Staph. aureus 11/25/23 11:45 Urine, Catheterized Urine Culture - Final Culture exhibits no growth. 11/26/23 11:26 Stool Clostridioides difficile (PCR) - Final 11/25/23 11:40 Mucosa - Nose SARS-CoV-2, Influenza & RSV (PCR) - Final Rhythm Strip Rhythm Strip: Sinus Tach Rate: 123 Ectopy: - (No pauses noted.) Physical Exam Const alert and no apparent distress Constitutional Narrative: Elderly male, obese, lying comfortably in bed, making appropriate eye contact and answering most questions appropriately, appears back to baseline, in no acute distress. General Appearance: cooperative and comfortable HEENT normocephalic, head/scalp atraumatic, hearing grossly normal bilaterally and nasal mucous membranes and turbinates normal Eyes PERRL, EOMs intact bilaterally and conjunctivae normal Neck full ROM Chest inspection of chest normal Resp normal respiratory effort and no use of accessory muscles Resp Narrative: Breathing comfortably on room air. Mildly decreased breath sounds throughout bilaterally, no wheezing or crackles noted, much improved from admission. Cardio regular rate, regular rhythm, no murmurs and peripheral pulses 2+ throughout GI normal to inspection, nondistended, normoactive bowel sounds, soft to palpation, non-tender and non-distended Back/Spine normal ROM Extremity normal to inspection, full ROM and no pedal edema Skin no rashes or lesions noted Neuro moves all extremities and no focal motor deficits Speech: speech normal Psych affect normal Assessment & Plan Assessment/Plan (1) MRSA bacteremia: (2) Sepsis: (3) Pneumonia: (4) Respiratory failure: (5) JULIETTE (acute kidney injury): PLAN: Plan Patient is a 63-year-old male who presented to [facility] ED on 11/25/2023 with worsening shortness of breath. 1. Acute hypoxic and hypercapnic respiratory failure, resolved Initially hypoxia presumed secondary to secondary MRSA pneumonia after recent flu pneumonia. Had worsening mental status and hypoxia on 12/02 requiring intubation. She was found to be hypercapnic postintubation. This was suspected secondary to decreased respiratory drive from possible overmedication as notable below. ? Vegetable Picker followed. Patient was extubated on 12/14 after 13 days on the ventilator. Had lengthy discussion with family prior to extubation and patient was changed to DNR CCA, DNI status. Fortunately, patient has done very well since extubation. Transferred to [facility] on 12/15. Weaned to room air at rest on 12/16. Continue to monitor. 2. Hypotension with concern for shock, resolved; sepsis without shock secondary to MRSA bacteremia Initially presented with sepsis and found to have MRSA bacteremia presumed secondary to a MRSA pneumonia that developed post influenza pneumonia. TTE showed no valvular abnormalities. Developed hypotension after intubation and sedation, suspected that hypotension is likely secondary to sedation requirements. ? Vegetable Picker followed, ID following. Hemodynamically stable, has been off Levophed since morning of 12/05. Meropenem started postintubation on 12/03, discontinued 12/07 after negative cultures. Continue vancomycin, appreciate ID recs on length of course needed. 3. Acute metabolic encephalopathy Patient noted to have worsening mentation on 11/27 of unclear etiology. Neurology was consulted for questionable seizure activity. MRI brain negative, EEG negative. Lab workup fairly benign. Neurology suspected toxic metabolic encephalopathy that was multifactorial in setting of sepsis, pneumonia, JULIETTE, delirium and polypharmacy from sedative medications of Ativan, Haldol and DPA, as well as a poor mental status at baseline. Patient required intubation on 12/02 as noted above. ? Neurology followed. Extubated on 12/14 as noted above. Home Haldol and Ativan were held while patient was intubated, was initiated on Seroquel and Depakene at that time. Will continue Seroquel and Depakene for now and continue to hold Haldol and Ativan. Monitor. 4. JULIETTE on suspected CKD stage IIIb, stable Creatinine 2.05 on admit, baseline creatinine around 1.8-2.1. Noted to have acutely worsened creatinine to 3.08 on 11/28 which then recovered back to baseline by 12/01. However, again had worsening of creatinine to 3.27 on 12/03 with decreased urine output suspected to be secondary to ATN from sepsis. ? Nephrology following. Creatinine has remained stable around 2.7-2.9 since 12/08. Transitioned off Lasix drip to IV Lasix 40 mg twice daily on 12/12. Patient noted to be somewhat dry on 12/16, likely due to discontinuation of tube feeds after extubation and decreased p.o. intake to this point. Holding diuresis on 12/16 and given small fluid bolus, with plan to resume p.o. Lasix on 12/17. Continue to monitor daily BMP and urine output. 5. Volume overload, improved ? Patient noted to be +10 L from volume status standpoint on 12/04, secondary to heavy IV fluids administered in setting of sepsis and concern for shock as noted above. Vegetable Picker followed, nephrology following as above. 6. A-fib with RVR, bradycardia with sinus pauses ? Cardiology evaluated on 11/29. Patient was noted to be on high-dose beta-diogo at that time and had some pauses on monitoring, unclear if patient was symptomatic with these pauses. Not an urgent pacemaker candidate given bacteremia. Beta-diogo discontinued. Has had improvement in heart rate and no recent sinus pauses. Continue cardiac monitoring. 7. Hypernatremia, resolved ? Nephrology following as above. Presumed secondary to dehydration. Sodium peaked at 152 on 12/02, returned to normal range by 12/05. Monitoring BMP daily as noted above. 8. Acute on chronic anemia, stable ? Known history of iron deficiency anemia, was on home iron supplement. Hemoglobin 10.5 on admit, slowly downtrending since then. Hemoglobin riky of 6.9 on , given 1 unit of packed red blood cells at that time with good improvement in hemoglobin to around 8. Stable. No active signs of bleeding. Continue iron supplement. Continue to monitor CBC daily. 9. Thrombocytosis, stable ? Platelet count range between 650 and 800. Suspect due to acute stress state. Monitor daily CBC. Chronic medical conditions: ? Obesity: BMI 32 on admit. Complicates hospital course, care and prognosis. ? Paranoid schizophrenia/anxiety and depression/sexual aggression: Lives in alf. Continue home Depakote, holding home Haldol and Ativan as noted above. ? Type 2 diabetes mellitus: Home regimen of insulin glargine 35 units at night, lispro 17 units with meals, metformin 1000 mg twice daily, Jardiance 25 mg daily. Continue Lantus 15 units twice daily, Humalog sliding scale with meals, adjust as needed. ? Hypothyroidism: Continue home Synthroid. ? CAD/hypertension/hyperlipidemia: Continue home aspirin, statin. Holding home amlodipine for borderline hypotension. Holding home Lopressor due to bradycardia as noted above. Holding home losartan for JULIETTE. ? Tobacco abuse: Nicotine replacement therapy available as needed. DVT prophylaxis: Heparin subcu CODE STATUS: Full code, verified Expected disposition: SNF, 2-3 days Total clinical time spent by myself addressing the patient's medical issues, reviewing all the data, and collaborating with patient's care team: 35 minutes. Charges/Coding Visit Charges Inpatient E&M: 45250 Subs Hosp L2
[2023-12-17] MEDS: Ferrous Sulfate 300 MG/5 ML UDC PO (11:36)
--- NOTE | 2023-12-17 11:45 | PCM.RX.CS ---
Consult Antibiotic Management Pharmacy has been consulted to manage selected antibiotic: Vancomycin Type of Intervention Type of Consult: Follow-up Suspected Infection Suspected Infection: Pneumonia Prior Doses of Antibiotics Prior Doses of Antibiotics Received/Current Regimen: Patient previously on 1000mg iv q72h. Labs Labs: Sodium 146 mmol/L (136-145) H 12/17/23 05:26 Potassium 4.0 mmol/L (3.5-5.1) 12/17/23 05:26 Chloride 110 mmol/L (98-107) H 12/17/23 05:26 Carbon Dioxide 29.0 mmol/L (21.0-32.0) 12/17/23 05:26 Anion Gap 7 (5-15) 12/17/23 05:26 BUN 51 mg/dL (7-18) H 12/17/23 05:26 Creatinine 2.80 mg/dL (0.70-1.30) H 12/17/23 05:26 Est GFR (MDRD) Af Amer 29 mL/min (>60) L 12/17/23 05:26 Est GFR (MDRD) Non-Af 24 mL/min (>60) L 12/17/23 05:26 BUN/Creatinine Ratio 18.2 RATIO (10-20) 12/17/23 05:26 Glucose 285 mg/dL (74-106) H 12/17/23 05:26 Vancomycin Trough 10.9 ug/mL (5.0-15.0) 12/17/23 08:30 Random Vancomycin 15.6 ug/mL (0.0-15.0) H 12/14/23 03:40 Microbiology Microbiology: Microbiology 12/03/23 16:20 Sputum, Induced/Lukens Gram Stain - Final 12/03/23 16:20 Sputum, Induced/Lukens Respiratory Culture - Final Meth. resistant Staph. aureus Yeast, not Evy albicans 11/29/23 09:50 Blood Culture (Wb) - Right Hand Blood Culture - Final No growth in 5 days. 12/03/23 16:55 Stool Enteric Bacteriology - Final 12/03/23 16:55 Stool Clostridioides difficile (PCR) - Final 11/28/23 13:16 Blood Culture (Wb) - Left Hand Blood Culture - Final No growth in 5 days. 11/25/23 10:45 Blood Culture (Wb) - Anticubital Right Blood Culture - Final No growth in 5 days. 11/25/23 10:38 Blood Culture (Wb) - Anticubital Left Blood Culture - Final Meth. resistant Staph. aureus 11/25/23 11:45 Urine, Catheterized Urine Culture - Final Culture exhibits no growth. 11/26/23 11:26 Stool Clostridioides difficile (PCR) - Final 11/25/23 11:40 Mucosa - Nose SARS-CoV-2, Influenza & RSV (PCR) - Final Dosing Weight Weight used for dosin.6 kg Estimated Creatinine Clearance Estimated Creatinine Clearance: 31ml/min Goal Trough Goal Trough: 15-20 mcg/mL Pharmacy Plan for Drug Dosing Pharmacy Plan for Drug Dosing: Trough level today ~70hrs post dose 10.9 and below desired range of 15-20mcg/ml. Renal function relatively same. Recommend increase of dose to 1000mg iv q48h with random level in 2 days. Pharmacy Service will continue to monitor and adjust dosing as required. Follow-Up Labs Follow-Up Labs: Trough: Other (random level 4.8.24 @0930)
[2023-12-17 11:58] LABS: Bedside Glucose 264 mg/dL (74-106)
[2023-12-17 14:06] VITALS: BP 159/96; PULSE 76; RESP 18; TEMP 36.6; O2SAT 95
--- NOTE | 2023-12-17 16:52 | PCM.PN.REN ---
Subjective Subjective Following for JULIETTE. Objective Data Objective Data Vital Signs: Vital Signs Temp Pulse Resp BP Pulse Ox O2 Del Method O2 Flow Rate 97.8 F 76 18 159/96 H 95 Room Air 2 12/17/23 14:06 12/17/23 14:06 12/17/23 14:06 12/17/23 14:06 12/17/23 14:06 12/17/23 08:04 12/16/23 20:45 FiO2 40 12/15/23 15:40 Oxygen Flow Rate (L/min) 2 Oxygen Delivery Method Room Air Weight: 98.6 kg Body Mass Index (BMI) 31.1 Intake & Output: Intake and Output for Last 24 Hours 12/15/23 12/16/23 12/17/23 23:59 23:59 23:59 Intake Total 2437.44 / 2437.44 200 / 200 522.50 / 522.50 Output Total 3050 / 3050 3150 / 3150 1550 / 1550 Balance -612.56 / -612.56 -2950 / -2950 -1027.50 / -1027.50 Medical Nutrition Assessment Dietitian: Malnutrition Criteria Met Start: 12/01/23 09:36 Freq: Status: Active Protocol: Document 12/11/23 09:56 (Rec: 12/11/23 09:56 [id number]) Nutrition Malnutrition Evidence of Malnutrition Exists Yes Malnutrition (severe): Acute Illness/Injury Evidenced By Suboptimal Energy Intake ( Severe),Weight Loss (Severe) Intake Problem Inadequate Oral Intake Etiology related to decreased ability to consume sufficient energy to meet estimated nutrient needs Signs/Symptoms as evidenced by extended NPO status x 10 days and intubation with need for enteral nutrition. Status Active Problem Clinical Problem Acute Disease or Injury Related Malnutrition Etiology severe, acute malnutrition related to inadequate energy intake d/t swallowing difficulties Signs/Symptoms as evidenced by unintentional 4% wt loss < 5 days, PO intake meeting <50% of estimated energy needs x 6 days Status Active Problem Recommendation Dietitian Recommendations/Changes NPO while intubated; Continue via OGT- Vital AF 1.2 Carloz at goal rate of 60mL/hour w/ decreased flush of 50mL H2O flush every 4 hours to provide 1728 calories, 108 g protein, and 1467mL total fluid/day. Lab / Micro Data 12/17/23 05:26 12/17/23 05:26 Labs: Laboratory Results - last 24 hr 12/16/23 16:58: POC Glucose 176 H 12/16/23 19:45: POC Glucose 163 H 12/17/23 05:26: WBC 12.0 H, RBC 3.21 L, Hgb 8.6 L, Hct 28.2 L, MCV 87.9, MCH 26.8 L, MCHC 30.5 L, RDW Std Deviation 64.3 H, RDW Coeff of Saman 21.5 H, Plt Count 800 H*, MPV 10.8, Differential Comment SCANNED, Diff Path Review January, Sodium 146 H, Potassium 4.0, Chloride 110 H, Carbon Dioxide 29.0, Anion Gap 7, BUN 51 H, Creatinine 2.80 H, Estim Creat Clear Calc 30.97, Est GFR (MDRD) Af Amer 29 L, Est GFR (MDRD) Non-Af 24 L, BUN/Creatinine Ratio 18.2, Glucose 285 H, Calcium 9.7 12/17/23 06:15: POC Glucose 248 H 12/17/23 08:30: Vancomycin Trough 10.9 12/17/23 11:32: POC Glucose 264 H Micro: Microbiology 12/03/23 16:20 Sputum, Induced/Lukens Gram Stain - Final 12/03/23 16:20 Sputum, Induced/Lukens Respiratory Culture - Final Meth. resistant Staph. aureus Yeast, not Evy albicans 11/29/23 09:50 Blood Culture (Wb) - Right Hand Blood Culture - Final No growth in 5 days. 12/03/23 16:55 Stool Enteric Bacteriology - Final 12/03/23 16:55 Stool Clostridioides difficile (PCR) - Final 11/28/23 13:16 Blood Culture (Wb) - Left Hand Blood Culture - Final No growth in 5 days. 11/25/23 10:45 Blood Culture (Wb) - Anticubital Right Blood Culture - Final No growth in 5 days. 11/25/23 10:38 Blood Culture (Wb) - Anticubital Left Blood Culture - Final Meth. resistant Staph. aureus 11/25/23 11:45 Urine, Catheterized Urine Culture - Final Culture exhibits no growth. 11/26/23 11:26 Stool Clostridioides difficile (PCR) - Final 11/25/23 11:40 Mucosa - Nose SARS-CoV-2, Influenza & RSV (PCR) - Final Rhythm Strip Rhythm Strip: Sinus Tach Rate: 123 Ectopy: - (No pauses noted.) Physical Exam Narrative intubated no obvious distress s1s2 no murmurs lungs clear anteriorly abdomen soft, nontender Trace edema bilateral lower legs, overall improved ratliff + clear yellow urine in bag Const alert, no apparent distress and average body habitus General Appearance: well developed and patient mechanically ventilated Orientation / Consciousness: oriented to person HEENT normocephalic Neck no lymphadenopathy Resp no use of accessory muscles Auscultation: rhonchi throughout and diminished lung sounds Cardio regular rate and no murmurs Cardio Narrative: Tachycardic GI non-tender and non-distended Auscultation: normoactive bowel sounds Palpation: soft and no hepatosplenomegaly external exam normal Bladder / Kidney Exam: catheter in place Extremity no clubbing, cyanosis or edema Skin no rashes or lesions noted Neuro Sensorium / Orientation: awake, alert and sedated on vent Psych cooperative Assessment & Plan Assessment/Plan (1) JULIETTE (acute kidney injury): (2) Chronic kidney disease, stage 3b: (3) Hypernatremia: PLAN: Plan Impression/Plan: The patient is a 63-year-old man with past history of type 2 diabetes mellitus, hypertension, PAD, COPD, atrial fibrillation, iron deficiency, schizophrenia, and depression. The patient presented to hospital on 11/25/2023 with dyspnea and hypoxemia. The patient was admitted to hospital for treatment of MRSA pneumonia and circulatory shock secondary to sepsis. Nephrology is following for acute kidney injury. Acute kidney injury on chronic kidney disease stage G3b. Baseline serum creatinine appears to be around 2.00 mg/dL. JULIETTE secondary to ischemic ATN. So far, serum creatinine peaked at 3.61 mg/dL on 12/06/2023. Renal function is overall improved with stable serum creatinine over the past 72 hours. Serum creatinine is 2.80 mg/dL today. Okay to continue current dose of Lasix (40 mg p.o. daily) with monitoring of renal function. Hypernatremia. Serum sodium is 146 mmol/L today. Urine output has been around 3.0 to 3.2 L/day and the past 48 hours.
--- NOTE | 2023-12-17 18:32 | PN.RENAL_ITS ---
Subjective Subjective Following for acute kidney injury. The patient is awake but confused. He denies chest pain, shortness of breath, or nausea. Objective Data Objective Data Vital Signs: Vital Signs Temp Pulse Resp BP Pulse Ox O2 Del Method O2 Flow Rate 97.8 F 76 18 159/96 H 95 Room Air 2 12/17/23 14:06 12/17/23 14:06 12/17/23 14:06 12/17/23 14:06 12/17/23 14:06 12/17/23 08:04 12/16/23 20:45 FiO2 40 12/15/23 15:40 Oxygen Flow Rate (L/min) 2 Oxygen Delivery Method Room Air Weight: 98.6 kg Body Mass Index (BMI) 31.1 Intake & Output: Intake and Output for Last 24 Hours 12/15/23 12/16/23 12/17/23 23:59 23:59 23:59 Intake Total 2437.44 / 2437.44 200 / 200 567.50 / 567.50 Output Total 3050 / 3050 3150 / 3150 1550 / 1550 Balance -612.56 / -612.56 -2950 / -2950 -982.50 / -982.50 Medical Nutrition Assessment Dietitian: Malnutrition Criteria Met Start: 12/01/23 09:36 Freq: Status: Active Protocol: Document 12/11/23 09:56 [email or web address] (Rec: 12/11/23 09:56 [id number]) Nutrition Malnutrition Evidence of Malnutrition Exists Yes Malnutrition (severe): Acute Illness/Injury Evidenced By Suboptimal Energy Intake ( Severe),Weight Loss (Severe) Intake Problem Inadequate Oral Intake Etiology related to decreased ability to consume sufficient energy to meet estimated nutrient needs Signs/Symptoms as evidenced by extended NPO status x 10 days and intubation with need for enteral nutrition. Status Active Problem Clinical Problem Acute Disease or Injury Related Malnutrition Etiology severe, acute malnutrition related to inadequate energy intake d/t swallowing difficulties Signs/Symptoms as evidenced by unintentional 4% wt loss < 5 days, PO intake meeting <50% of estimated energy needs x 6 days Status Active Problem Recommendation Dietitian Recommendations/Changes NPO while intubated; Continue via OGT- Vital AF 1.2 Carloz at goal rate of 60mL/hour w/ decreased flush of 50mL H2O flush every 4 hours to provide 1728 calories, 108 g protein, and 1467mL total fluid/day. Lab / Micro Data 12/17/23 05:26 12/17/23 05:26 Labs: Laboratory Results - last 24 hr 12/16/23 19:45: POC Glucose 163 H 12/17/23 05:26: WBC 12.0 H, RBC 3.21 L, Hgb 8.6 L, Hct 28.2 L, MCV 87.9, MCH 26.8 L, MCHC 30.5 L, RDW Std Deviation 64.3 H, RDW Coeff of Saman 21.5 H, Plt Count 800 H*, MPV 10.8, Differential Comment SCANNED, Diff Path Review January, Sodium 146 H, Potassium 4.0, Chloride 110 H, Carbon Dioxide 29.0, Anion Gap 7, BUN 51 H, Creatinine 2.80 H, Estim Creat Clear Calc 30.97, Est GFR (MDRD) Af Amer 29 L, Est GFR (MDRD) Non-Af 24 L, BUN/Creatinine Ratio 18.2, Glucose 285 H, Calcium 9.7 12/17/23 06:15: POC Glucose 248 H 12/17/23 08:30: Vancomycin Trough 10.9 12/17/23 11:32: POC Glucose 264 H Micro: Microbiology 12/03/23 16:20 Sputum, Induced/Lukens Gram Stain - Final 12/03/23 16:20 Sputum, Induced/Lukens Respiratory Culture - Final Meth. resistant Staph. aureus Yeast, not Evy albicans 11/29/23 09:50 Blood Culture (Wb) - Right Hand Blood Culture - Final No growth in 5 days. 12/03/23 16:55 Stool Enteric Bacteriology - Final 12/03/23 16:55 Stool Clostridioides difficile (PCR) - Final 11/28/23 13:16 Blood Culture (Wb) - Left Hand Blood Culture - Final No growth in 5 days. 11/25/23 10:45 Blood Culture (Wb) - Anticubital Right Blood Culture - Final No growth in 5 days. 11/25/23 10:38 Blood Culture (Wb) - Anticubital Left Blood Culture - Final Meth. resistant Staph. aureus 11/25/23 11:45 Urine, Catheterized Urine Culture - Final Culture exhibits no growth. 11/26/23 11:26 Stool Clostridioides difficile (PCR) - Final 11/25/23 11:40 Mucosa - Nose SARS-CoV-2, Influenza & RSV (PCR) - Final Rhythm Strip Rhythm Strip: Sinus Tach Rate: 123 Ectopy: - (No pauses noted.) Physical Exam Narrative no obvious distress Normal s1s2 no murmurs lungs clear anteriorly abdomen soft, nontender No edema bilateral lower legs, overall improved Assessment & Plan Assessment/Plan (1) JULIETTE (acute kidney injury): (2) Chronic kidney disease, stage 3b: (3) Hypernatremia: PLAN: Plan Impression/Plan: The patient is a 63-year-old man with past history of type 2 diabetes mellitus, hypertension, PAD, COPD, atrial fibrillation, iron deficiency, schizophrenia, and depression. The patient presented to hospital on 11/25/2023 with dyspnea and hypoxemia. The patient was admitted to hospital for treatment of MRSA pneumonia and circulatory shock secondary to sepsis. Nephrology is following for acute kidney injury. Acute kidney injury on chronic kidney disease stage G3b. Baseline serum creatinine appears to be around 2.00 mg/dL. JULIETTE secondary to ischemic ATN. So far, serum creatinine peaked at 3.61 mg/dL on 12/06/2023. Renal function is overall improved with stable serum creatinine over the past 72 hours. Serum creatinine is 2.80 mg/dL today. Okay to continue current dose of Lasix (40 mg p.o. daily) with monitoring of renal function. Continue to hold losartan for now. There is no need for dialysis. Will recheck renal function, volume status, acid-base and electrolytes again tomorrow. Current medications are reviewed and are appropriate dose for his renal function. Hypertension. Continue to hold losartan for now. Would not restart losartan until renal fu nction goes back to baseline. The patient is currently off of antihypertensives. If BP remains persistently elevated in the next 24 to 40 hours, we can add amlodipine. There is no urgency to normalize BP in this case. Hypernatremia. Serum sodium is 146 mmol/L today. Urine output has been around 3.0 to 3.2 L/day and the past 48 hours. The patient is currently n.p.o. and is being diuresed. Hypernatremia, therefore, is expected. Will continue monitor serum sodium. Hopefully, he can start oral intake shortly.
[2023-12-17 20:09] VITALS: BP 151/75; PULSE 83; RESP 16; TEMP 37.3; O2SAT 94
[2023-12-17 20:10] VITALS: O2SAT 94
[2023-12-17] MEDS: Atorvastatin Calcium 80 MG Tablet PO (20:44)
[2023-12-17] MEDS: Senna/Docusate Sodium 1 Tablet 2 TABLET PO (20:44)
[2023-12-17] MEDS: traZODone 100 MG Tablet PO (20:46)
[2023-12-17] MEDS: Valproic Acid 250 MG/5 ML UDC PO (20:47)
[2023-12-17 21:08] LABS: Bedside Glucose 145 mg/dL (74-106)
[2023-12-17 22:23] LABS: Bedside Glucose 151 mg/dL (74-106)
[2023-12-18] VITALS (7 sets, daily range): BP systolic 153–163; BP diastolic 85–91; PULSE 84–96; RESP 16–20; TEMP 36.7–37.2; O2SAT 95–99; BMI 37.5
--- NOTE | 2023-12-18 05:37 | NURSING ---
This RN weighed pt multiple times but does not believe pt was weighed properly day before or bed was not zeroed out upon arriving to unit
[2023-12-18] MEDS: Nystatin Powder 15gm Bottle 1 APPLIC TOPICAL ×3 (05:40→21:44)
[2023-12-18] MEDS: Levothyroxine 50 MCG Tablet PO (05:40)
[2023-12-18 07:19] LABS: Bedside Glucose 128 mg/dL (74-106)
[2023-12-18 07:22] LABS: Hematocrit 28.6 % (40-54); Hemoglobin 8.7 g/dL (13.0-16.5); Mean Corp Hgb Conc 30.4 g/dL (32-36); Mean Corpuscular Hgb 27.1 pg (27.0-32.0); Mean Corpuscular Volume 89.1 fL (80-94); Mean Platelet Vol. 11.3 fl (6.2-12.0); POSITIVE MORPHOLOGY YES; Platelet Count 635 K/mm3 (150-450); RBC Distribution Width CV 21.6 % (11.6-14.6); RBC Distribution Width SD 65.7 fl (35.1-43.9); Red Blood Count 3.21 M/mm3 (4.6-6.2); White Blood Count 9.5 K/mm3 (4.4-11.0)
[2023-12-18 07:37] LABS: Scan Indicated on CBC? Y/N YES- FLAGS NOTED
[2023-12-18 07:59] LABS: Anion Gap 4 (5-15); BUN 45 mg/dL (7-18); BUN/Creat Ratio 17.6 RATIO (10-20); Calcium,Total 9.7 mg/dL (8.5-10.1); Chloride 116 mmol/L (98-107); Creatinine, Serum 2.56 mg/dL (0.70-1.30); EST Glomerular Filtration Rate 27 mL/min (>60); Est Glom Filt Rate - Afr Amer 33 mL/min (>60); Estimated Creatinine Clearance 37.17 ml/min; Glucose 141 mg/dL (74-106); Potassium 3.6 mmol/L (3.5-5.1); Sodium Level 150 mmol/L (136-145)
[2023-12-18] MEDS: 0.9% Saline Lock 10 ML Syringe IV ×2 (09:14→14:05)
[2023-12-18] MEDS: Pantoprazole Sodium 40 MG in 0.9% Normal Saline (100mL MB+) 100 ML 330 MG IV (09:14)
[2023-12-18] MEDS: Heparin Injection (Vial) 5,000 UNIT/ML VIAL 5000 UNIT SC ×2 (09:15→21:42)
[2023-12-18] MEDS: Menthol/Lanolin/Calamine/Znox 113 GM Tube 1 APPLIC TOPICAL ×2 (09:16→21:39)
[2023-12-18] MEDS: Senna/Docusate Sodium 1 Tablet 2 TABLET PO ×2 (09:16→21:45)
[2023-12-18] MEDS: Polyethylene Glycol 3350 17 GM PACKET PO (09:16)
[2023-12-18] MEDS: Aspirin 81 MG TAB.CHEW PO ×2 (09:16→09:17)
[2023-12-18] MEDS: Furosemide 40 MG Tablet PO (09:16)
[2023-12-18] MEDS: QUEtiapine 25 MG Tablet 50 MG PO ×2 (09:17→21:44)
[2023-12-18] MEDS: Valproic Acid 250 MG/5 ML UDC 500 MG PO ×2 (09:17→21:41)
[2023-12-18] MEDS: MEDROXYPROGESTERONE ACETATE 10 MG TABLET PO ×2 (09:18→21:44)
[2023-12-18] MEDS: Insulin Glargine-YFGN 100 UNIT/ML Pen 15 UNIT SC ×2 (09:20→21:43)
--- NOTE | 2023-12-18 10:58 | PN.HOSP_ITS ---
Reason for Visit Reason for Visit: Diagnoses Sepsis, unspecified organism (11/25/23) Methicillin resistant Staphylococcus aureus infection as the cause of diseases classified elsewhere (11/25/23) Hyperosmolality and hypernatremia (11/25/23) Schizophrenia, unspecified (11/25/23) Essential (primary) hypertension (11/25/23) Unspecified atrial fibrillation (11/25/23) Pneumonia, unspecified organism (11/25/23) Respiratory failure, unspecified, unspecified whether with hypoxia or hypercapnia (11/25/23) Acute kidney failure, unspecified (11/25/23) Chronic kidney disease, stage 3b (11/25/23) Bacteremia (11/25/23) Subjective Subjective No acute events overnight. Patient seen at bedside this morning. Sitting up fairly comfortably in bed, very awake and alert this morning, making appropriate eye contact with questions and has some difficulties with speech but this seems to be his baseline. He reported to me again today that he was feeling thirsty and wanted to have some water if possible. Nursing staff noted to be that he seems to do okay with sips with meds and crushed meds in applesauce, but he does not have very good self-control and either does not take them or takes a very large sip or large bite of applesauce. No other acute concerns. Objective Data Objective Data Vital Signs: Vital Signs Temp Pulse Resp BP Pulse Ox O2 Del Method O2 Flow Rate 99.0 F 84 18 162/85 H 98 Room Air 2 12/18/23 09:04 12/18/23 09:04 12/18/23 09:04 12/18/23 09:04 12/18/23 09:04 12/18/23 09:04 12/16/23 20:45 FiO2 40 12/15/23 15:40 Oxygen Flow Rate (L/min) 2 Oxygen Delivery Method Room Air Weight: 118.9 kg Body Mass Index (BMI) 37.5 Intake & Output: Intake and Output for Last 24 Hours 12/16/23 12/17/23 12/18/23 23:59 23:59 23:59 Intake Total 200 / 200 567.50 / 567.50 110 / 110 Output Total 3150 / 3150 1850 / 1850 550 / 550 Balance -2950 / -2950 -1282.50 / -1282.50 -440 / -440 Medical Nutrition Assessment Dietitian: Malnutrition Criteria Met Start: 12/01/23 09:36 Freq: Status: Active Protocol: Document 12/11/23 09:56 SARAHI (Rec: 12/11/23 09:56 [id number]) Nutrition Malnutrition Evidence of Malnutrition Exists Yes Malnutrition (severe): Acute Illness/Injury Evidenced By Suboptimal Energy Intake ( Severe),Weight Loss (Severe) Intake Problem Inadequate Oral Intake Etiology related to decreased ability to consume sufficient energy to meet estimated nutrient needs Signs/Symptoms as evidenced by extended NPO status x 10 days and intubation with need for enteral nutrition. Status Active Problem Clinical Problem Acute Disease or Injury Related Malnutrition Etiology severe, acute malnutrition related to inadequate energy intake d/t swallowing difficulties Signs/Symptoms as evidenced by unintentional 4% wt loss < 5 days, PO intake meeting <50% of estimated energy needs x 6 days Status Active Problem Recommendation Dietitian Recommendations/Changes NPO while intubated; Continue via OGT- Vital AF 1.2 Carloz at goal rate of 60mL/hour w/ decreased flush of 50mL H2O flush every 4 hours to provide 1728 calories, 108 g protein, and 1467mL total fluid/day. Lab / Micro Data 12/18/23 05:35 12/18/23 05:35 Labs: Laboratory Results - last 24 hr 12/17/23 11:32: POC Glucose 264 H 12/17/23 16:47: POC Glucose 145 H 12/17/23 20:51: POC Glucose 151 H 12/18/23 05:35: WBC 9.5, RBC 3.21 L, Hgb 8.7 L, Hct 28.6 L, MCV 89.1, MCH 27.1, MCHC 30.4 L, RDW Std Deviation 65.7 H, RDW Coeff of Saman 21.6 H, Plt Count 635 H, MPV 11.3, Differential Comment , Sodium 150 H, Potassium 3.6, Chloride 116 H, Carbon Dioxide 30.0, Anion Gap 4 L, BUN 45 H, Creatinine 2.56 H, Estim Creat Clear Calc 37.17, Est GFR (MDRD) Af Amer 33 L, Est GFR (MDRD) Non-Af 27 L, BUN/Creatinine Ratio 17.6, Glucose 141 H, Calcium 9.7 12/18/23 05:45: POC Glucose 128 H Micro: Microbiology 12/03/23 16:20 Sputum, Induced/Lukens Gram Stain - Final 12/03/23 16:20 Sputum, Induced/Lukens Respiratory Culture - Final Meth. resistant Staph. aureus Yeast, not Evy albicans 11/29/23 09:50 Blood Culture (Wb) - Right Hand Blood Culture - Final No growth in 5 days. 12/03/23 16:55 Stool Enteric Bacteriology - Final 12/03/23 16:55 Stool Clostridioides difficile (PCR) - Final 11/28/23 13:16 Blood Culture (Wb) - Left Hand Blood Culture - Final No growth in 5 days. 11/25/23 10:45 Blood Culture (Wb) - Anticubital Right Blood Culture - Final No growth in 5 days. 11/25/23 10:38 Blood Culture (Wb) - Anticubital Left Blood Culture - Final Meth. resistant Staph. aureus 11/25/23 11:45 Urine, Catheterized Urine Culture - Final Culture exhibits no growth. 11/26/23 11:26 Stool Clostridioides difficile (PCR) - Final 11/25/23 11:40 Mucosa - Nose SARS-CoV-2, Influenza & RSV (PCR) - Final Rhythm Strip Rhythm Strip: Sinus Tach Rate: 123 Ectopy: - (No pauses noted.) Physical Exam Const alert and no apparent distress Constitutional Narrative: Elderly male, obese, sitting up comfortably in bed, making appropriate eye contact and answering questions with short mostly appropriate responses, does appear to be at his baseline, no acute distress. General Appearance: cooperative and comfortable HEENT normocephalic, head/scalp atraumatic, hearing grossly normal bilaterally and nasal mucous membranes and turbinates normal Eyes PERRL, EOMs intact bilaterally and conjunctivae normal Neck full ROM Chest inspection of chest normal Resp normal respiratory effort and no use of accessory muscles Resp Narrative: Breathing comfortably on room air. Mildly decreased breath sounds throughout bilaterally, no wheezing or crackles noted, much improved from admission. Cardio regular rate, regular rhythm, no murmurs and peripheral pulses 2+ throughout GI normal to inspection, nondistended, normoactive bowel sounds, soft to palpation, non-tender and non-distended Back/Spine normal ROM Extremity normal to inspection, full ROM and no pedal edema Skin no rashes or lesions noted Neuro moves all extremities and no focal motor deficits Speech: speech normal Psych affect normal Assessment & Plan Assessment/Plan (1) MRSA bacteremia: (2) Sepsis: (3) Pneumonia: (4) Respiratory failure: (5) JULIETTE (acute kidney injury): PLAN: Plan Patient is a 63-year-old male who presented to [facility] ED on 11/25/2023 with worsening shortness of breath. 1. Acute hypoxic and hypercapnic respiratory failure, resolved Initially hypoxia presumed secondary to secondary MRSA pneumonia after recent flu pneumonia. Had worsening mental status and hypoxia on 12/02 requiring intubation. She was found to be hypercapnic postintubation. This was suspected secondary to decreased respiratory drive from possible overmedication as notable below. ? [employer] followed. Patient was extubated on 12/14 after 13 days on the ventilator. Had lengthy discussion with family prior to extubation and patient was changed to DNR CCA, DNI status. Fortunately, patient has done very well since extubation. Transferred to [facility] on 12/15. Weaned to room air at rest on 12/16. Continue to monitor. 2. Hypotension with concern for shock, resolved; sepsis without shock secondary to MRSA bacteremia Initially presented with sepsis and found to have MRSA bacteremia presumed s econdary to a MRSA pneumonia that developed post influenza pneumonia. TTE showed no valvular abnormalities. Developed hypotension after intubation and sedation, suspected that hypotension is likely secondary to sedation requirements. ? Ed Special Education Teacher followed, ID following. Hemodynamically stable, has been off Levophed since morning of 12/05. Meropenem started postintubation on 12/03, discontinued 12/07 after negative cultures. Continue vancomycin, appreciate ID recs on length of course needed. 3. Acute metabolic encephalopathy Patient noted to have worsening mentation on 11/27 of unclear etiology. Neurology was consulted for questionable seizure activity. MRI brain negative, EEG negative. Lab workup fairly benign. Neurology suspected toxic metabolic encephalopathy that was multifactorial in setting of sepsis, pneumonia, JULIETTE, delirium and polypharmacy from sedative medications of Ativan, Haldol and DPA, as well as a poor mental status at baseline. Patient required intubation on 12/02 as noted above. ? Neurology followed. Extubated on 12/14 as noted above. Home Haldol and Ativan were held while patient was intubated, was initiated on Seroquel and Depakene at that time. Will continue Seroquel and Depakene for now and continue to hold Haldol and Ativan. Monitor. 4. JULIETTE on suspected CKD stage IIIb, stable Creatinine 2.05 on admit, baseline creatinine around 1.8-2.1. Noted to have acutely worsened creatinine to 3.08 on 11/28 which then recovered back to baseline by 12/01. However, again had worsening of creatinine to 3.27 on 12/03 with decreased urine output suspected to be secondary to ATN from sepsis. ? Nephrology following. Creatinine has remained stable around 2.7-2.9 since 12/08. Transitioned off Lasix drip to IV Lasix 40 mg twice daily on 12/12. Patient noted to be somewhat dry on 12/16, likely due to discontinuation of tube feeds after extubation and decreased p.o. intake to this point. Holding diuresis on 12/16 and given small fluid bolus, with plan to resume p.o. Lasix on 12/17. Continue to monitor daily BMP and urine output. 5. Volume overload, improved ? Patient noted to be +10 L from volume status standpoint on 12/04, secondary to heavy IV fluids administered in setting of sepsis and concern for shock as noted above. Ed Special Education Teacher followed, nephrology following as above. 6. A-fib with RVR, bradycardia with sinus pauses ? Cardiology evaluated on 11/29. Patient was noted to be on high-dose beta- diogo at that time and had some pauses on monitoring, unclear if patient was symptomatic with these pauses. Not an urgent pacemaker candidate given bacteremia. Beta-diogo discontinued. Has had improvement in heart rate and no recent sinus pauses. Continue cardiac monitoring. 7. Hypernatremia ? Nephrology following as above. Patient was hypernatremic early in the admission, sodium peaked at 152 on 12/02. He was intubated on 12/02 and sodium returned to normal range on 12/05 after patient received hypotonic fluids and was started on tube feeds. Patient extubated on 12/14, has remained n.p.o. since then. Sodium now uptrending with most recent sodium 150 on 12/17. Speech therapy following as below, if patient cleared for diet will start diet and encourage fluid intake. However if not clear for diet, will plan to start D5W and will need to discuss alternative feeding options in the next few days. 8. Acute on chronic anemia, stable ? Known history of iron deficiency anemia, was on home iron supplement. Hemoglobin 10.5 on admit, slowly downtrending since then. Hemoglobin riky of 6.9 on , given 1 unit of packed red blood cells at that time with good improvement in hemoglobin to around 8. Stable. No active signs of bleeding. Continue iron supplement. Continue to monitor CBC daily. 9. Thrombocytosis, stable ? Platelet count range between 650 and 800. Suspect due to acute stress state. Monitor daily CBC. 10. Dysphagia ? Speech therapy following. Remains n.p.o. on 12/17, largely because he is high risk for dysphagia after his prolonged intubation. Speech to see him again on 12/17, hopefully will be cleared for diet at that time. If not, will need to discuss alternative feeding options in the next few days. Chronic medical conditions: ? Obesity: BMI 32 on admit. Complicates hospital course, care and prognosis. ? Paranoid schizophrenia/anxiety and depression/sexual aggression: Lives in assisted. Continue home Depakote, holding home Haldol and Ativan as noted above. ? Type 2 diabetes mellitus: Home regimen of insulin glargine 35 units at night, lispro 17 units with meals, metformin 1000 mg twice daily, Jardiance 25 mg daily. Continue Lantus 15 units twice daily, Humalog sliding scale with meals, adjust as needed. ? Hypothyroidism: Continue home Synthroid. ? CAD/hypertension/hyperlipidemia: Continue home aspirin, statin. Home amlodipine held with septic shock, restarted on 12/17. Holding home Lopressor due to bradycardia as noted above. Holding home losartan for JULIETTE. ? Tobacco abuse: Nicotine replacement therapy available as needed. DVT prophylaxis: Heparin subcu CODE STATUS: Full code, verified Expected disposition: Back to extermination supervisor care facility, TBD Total clinical time spent by myself addressing the patient's medical issues, reviewing all the data, and collaborating with patient's care team: 35 minutes. Charges/Coding Visit Charges Inpatient E&M: 40513 Subs Hosp L2
[2023-12-18 11:41] LABS: Bedside Glucose 147 mg/dL (74-106)
[2023-12-18] MEDS: Dextrose 5%-Water (1000mL Bag) 1,000 ML 125 ML IV ×2 (14:02→21:39)
[2023-12-18] MEDS: amLODIPine 5 MG Tablet PO (14:05)
[2023-12-18] MEDS: Ferrous Sulfate 300 MG/5 ML UDC PO (14:06)
[2023-12-18] MEDS: Insulin Lispro 100 UNIT/ML INSULN.PEN SC ×2 (16:18→21:42)
[2023-12-18 16:48] LABS: Bedside Glucose 170 mg/dL (74-106)
[2023-12-18] MEDS: Valproic Acid 250 MG/5 ML UDC PO (21:40)
[2023-12-18] MEDS: Atorvastatin Calcium 80 MG Tablet PO (21:44)
[2023-12-18] MEDS: traZODone 100 MG Tablet PO (21:50)
[2023-12-19 01:16] LABS: Bedside Glucose 209 mg/dL (74-106)
[2023-12-19 02:02] VITALS: BP 150/82; PULSE 95; RESP 16; TEMP 37.1; O2SAT 95
[2023-12-19 03:27] VITALS: BMI 37.2
[2023-12-19] MEDS: Nystatin Powder 15gm Bottle 1 APPLIC TOPICAL ×3 (05:13→22:54)
[2023-12-19] MEDS: Dextrose 5%-Water (1000mL Bag) 1,000 ML 125 ML IV (05:13)
[2023-12-19] MEDS: Levothyroxine 50 MCG Tablet PO (05:14)
--- NOTE | 2023-12-19 06:36 | NURSING ---
Pt bed exit going off. When i walked into the room. Pt had his iv pole laying on the floor. Pt all over the bed. Pt continues to keep asking for water or coke.
[2023-12-19] MEDS: Insulin Lispro 100 UNIT/ML INSULN.PEN SC ×3 (06:41→22:51)
[2023-12-19 06:51] LABS: Bedside Glucose 219 mg/dL (74-106)
--- NOTE | 2023-12-19 07:44 | PCM.PN.HOSP ---
Reason for Visit Reason for Visit: Diagnoses Sepsis, unspecified organism (11/25/23) Methicillin resistant Staphylococcus aureus infection as the cause of diseases classified elsewhere (11/25/23) Hyperosmolality and hypernatremia (11/25/23) Schizophrenia, unspecified (11/25/23) Essential (primary) hypertension (11/25/23) Unspecified atrial fibrillation (11/25/23) Pneumonia, unspecified organism (11/25/23) Respiratory failure, unspecified, unspecified whether with hypoxia or hypercapnia (11/25/23) Acute kidney failure, unspecified (11/25/23) Chronic kidney disease, stage 3b (11/25/23) Bacteremia (11/25/23) Objective Data Objective Data Vital Signs: Vital Signs Temp Pulse Resp BP Pulse Ox O2 Del Method O2 Flow Rate 98.7 F 95 16 150/82 H 95 Room Air 2 12/19/23 02:02 12/19/23 02:02 12/19/23 02:02 12/19/23 02:02 12/19/23 02:02 12/19/23 03:39 12/16/23 20:45 FiO2 40 12/15/23 15:40 Oxygen Flow Rate (L/min) 2 Oxygen Delivery Method Room Air Weight: 260 lb 2.327 oz Body Mass Index (BMI) 37.2 Intake & Output: Intake and Output for Last 24 Hours 12/17/23 12/18/23 12/19/23 23:59 23:59 23:59 Intake Total 567.50 / 567.50 1137.08 / 1137.08 945.83 / 945.83 Output Total 1850 / 1850 1250 / 1250 400 / 400 Balance -1282.50 / -1282.50 -112.92 / -112.92 545.83 / 545.83 Medical Nutrition Assessment Dietitian: Malnutrition Criteria Met Start: 12/01/23 09:36 Freq: Status: Active Protocol: Document 12/11/23 09:56 SARAHI (Rec: 12/11/23 09:56 LO [id number]) Nutrition Malnutrition Evidence of Malnutrition Exists Yes Malnutrition (severe): Acute Illness/Injury Evidenced By Suboptimal Energy Intake ( Severe),Weight Loss (Severe) Intake Problem Inadequate Oral Intake Etiology related to decreased ability to consume sufficient energy to meet estimated nutrient needs Signs/Symptoms as evidenced by extended NPO status x 10 days and intubation with need for enteral nutrition. Status Active Problem Clinical Problem Acute Disease or Injury Related Malnutrition Etiology severe, acute malnutrition related to inadequate energy intake d/t swallowing difficulties Signs/Symptoms as evidenced by unintentional 4% wt loss < 5 days, PO intake meeting <50% of estimated energy needs x 6 days Status Active Problem Recommendation Dietitian Recommendations/Changes NPO while intubated; Continue via OGT- Vital AF 1.2 Carloz at goal rate of 60mL/hour w/ decreased flush of 50mL H2O flush every 4 hours to provide 1728 calories, 108 g protein, and 1467mL total fluid/day. Lab / Micro Data 12/19/23 09:25 12/19/23 09:25 Labs: Laboratory Results - last 24 hr 12/18/23 05:35: Differential Comment , Sodium 150 H, Potassium 3.6, Chloride 116 H, Carbon Dioxide 30.0, Anion Gap 4 L, BUN 45 H, Creatinine 2.56 H, Estim Creat Clear Calc 37.17, Est GFR (MDRD) Af Amer 33 L, Est GFR (MDRD) Non-Af 27 L, BUN/Creatinine Ratio 17.6, Glucose 141 H, Calcium 9.7 12/18/23 11:22: POC Glucose 147 H 12/18/23 16:16: POC Glucose 170 H 12/18/23 21:33: POC Glucose 209 H 12/19/23 06:28: POC Glucose 219 H Micro: Microbiology 12/03/23 16:20 Sputum, Induced/Lukens Gram Stain - Final 12/03/23 16:20 Sputum, Induced/Lukens Respiratory Culture - Final Meth. resistant Staph. aureus Yeast, not Evy albicans 11/29/23 09:50 Blood Culture (Wb) - Right Hand Blood Culture - Final No growth in 5 days. 12/03/23 16:55 Stool Enteric Bacteriology - Final 12/03/23 16:55 Stool Clostridioides difficile (PCR) - Final 11/28/23 13:16 Blood Culture (Wb) - Left Hand Blood Culture - Final No growth in 5 days. 11/25/23 10:45 Blood Culture (Wb) - Anticubital Right Blood Culture - Final No growth in 5 days. 11/25/23 10:38 Blood Culture (Wb) - Anticubital Left Blood Culture - Final Meth. resistant Staph. aureus 11/25/23 11:45 Urine, Catheterized Urine Culture - Final Culture exhibits no growth. 11/26/23 11:26 Stool Clostridioides difficile (PCR) - Final 11/25/23 11:40 Mucosa - Nose SARS-CoV-2, Influenza & RSV (PCR) - Final Rhythm Strip Rhythm Strip: Sinus Tach Rate: 123 Ectopy: - (No pauses noted.) Physical Exam Narrative Seen and examined. Patient asking for ice. Currently n.p.o. and going for modified barium swallow. Prolonged hospitalization with intubation for 13 days, along with multiple issues including JULIETTE on CKD and hyponatremia. Patient also has psychiatry comorbidities General: Awake, oriented x 3. HEENT: Atraumatic, PERRLA, EOMI, Normocephalic Oral: No Gingival or Mucosal Lesions/ Ulcerations Neck: Supple, No JVD, Negative Carotid Bruits Chest wall/Lungs: Air entry diminished in bilateral lung bases. No crepitation/rhonchi Cardiovascular: Regular rate, Regular Rhythm, Normal S1, Normal S2, No M/G/R Abdomen: Bowel Sounds Present, Soft, Non Tender, Non-Distended : No dysuria. No renal angle tenderness. No suprapubic tenderness. Extremities: No edema, Capillary Refill Less than 3 Seconds Skin: No rashes, No breakdown Musculoskeletal: No Tenderness to Palpation of Joints or Extremities. ROM restricted. Neurological: Cranial nerves II-XII grossly intact, DTR 2+/4. No acute focal neurological deficit. Psych/Mental Status: Flat affect Assessment & Plan Assessment/Plan (1) MRSA bacteremia: (2) Sepsis: (3) Pneumonia: (4) Respiratory failure: (5) JULIETTE (acute kidney injury): PLAN: Plan Patient is a 63-year-old male who presented to [facility] ED on 11/25/2023 with worsening shortness of breath. 1. Acute hypoxic and hypercapnic respiratory failure, resolved Initially hypoxia presumed secondary to secondary MRSA pneumonia after recent flu pneumonia. Had worsening mental status and hypoxia on 12/02 requiring intubation. She was found to be hypercapnic postintubation. This was suspected secondary to decreased respiratory drive from possible overmedication as notable below. ? Warehouse Consultant followed. Patient was extubated on 12/14 after 13 days on the ventilator. Had lengthy discussion with family prior to extubation and patient was changed to DNR CCA, DNI status. Fortunately, patient has done very well since extubation. Transferred to [facility] on 12/15. Weaned to room air at rest on 12/16. Continue to monitor. 12/18: Patient is still on room air. Difficulty in swallowing. Patient going for modified barium swallow today. 2. Hypotension with concern for shock, resolved; sepsis without shock secondary to MRSA bacteremia Initially presented with sepsis and found to have MRSA bacteremia presumed secondary to a MRSA pneumonia that developed post influenza pneumonia. TTE showed no valvular abnormalities. Developed hypotension after intubation and sedation, suspected that hypotension is likely secondary to sedation requirements. ? Warehouse Consultant followed, ID following. Hemodynamically stable, has been off Levophed since morning of 12/05. Meropenem started postintubation on 12/03, discontinued 12/07 after negative cultures. Continue vancomycin, appreciate ID recs on length of course needed. 3. Acute metabolic encephalopathy Patient noted to have worsening mentation on 11/27 of unclear etiology. Neurology was consulted for questionable seizure activity. MRI brain negative, EEG negative. Lab workup fairly benign. Neurology suspected toxic metabolic encephalopathy that was multifactorial in setting of sepsis, pneumonia, JULIETTE, delirium and polypharmacy from sedative medications of Ativan, Haldol and DPA, as well as a poor mental status at baseline. Patient required intubation on 12/02 as noted above. ? Neurology followed. Extubated on 12/14 as noted above. Home Haldol and Ativan were held while patient was intubated, was initiated on Seroquel and Depakene at that time. Will continue Seroquel and Depakene for now and continue to hold Haldol and Ativan. Monitor. 4. JULIETTE on suspected CKD stage IIIb, stable Creatinine 2.05 on admit, baseline creatinine around 1.8-2.1. Noted to have acutely worsened creatinine to 3.08 on 11/28 which then recovered back to baseline by 12/01. However, again had worsening of creatinine to 3.27 on 12/03 with decreased urine output suspected to be secondary to ATN from sepsis. ? Nephrology following. Creatinine has remained stable around 2.7-2.9 since 12/08. Transitioned off Lasix drip to IV Lasix 40 mg twice daily on 12/12. Patient noted to be somewhat dry on 12/16, likely due to discontinuation of tube feeds after extubation and decreased p.o. intake to this point. Holding diuresis on 12/16 and given small fluid bolus, with plan to resume p.o. Lasix on 12/17. Continue to monitor daily BMP and urine output. 12/18: Creatinine similar 2.59 from last 2 days. Patient had hyponatremia sodium 146, 150 but has improved to 144. Free water recommended 5. Volume overload, improved ? Patient noted to be +10 L from volume status standpoint on 12/04, secondary to heavy IV fluids administered in setting of sepsis and concern for shock as noted above. Warehouse Consultant followed, nephrology following as above. 6. A-fib with RVR, bradycardia with sinus pauses ? Cardiology evaluated on 11/29. Patient was noted to be on high-dose beta-diogo at that time and had some pauses on monitoring, unclear if patient was symptomatic with these pauses. Not an urgent pacemaker candidate given bacteremia. Beta-diogo discontinued. Has had improvement in heart rate and no recent sinus pauses. Continue cardiac monitoring. 7. Hypernatremia ? Nephrology following as above. Patient was hypernatremic early in the admission, sodium peaked at 152 on 12/02. He was intubated on 12/02 and sodium returned to normal range on 12/05 after patient received hypotonic fluids and was started on tube feeds. Patient extubated on 12/14, has remained n.p.o. since then. Sodium now uptrending with most recent sodium 150 on 12/17. Speech therapy following as below, if patient cleared for diet will start diet and encourage fluid intake. However if not clear for diet, will plan to start D5W and will need to discuss alternative feeding options in the next few days. 8. Acute on chronic anemia, stable ? Known history of iron deficiency anemia, was on home iron supplement. Hemoglobin 10.5 on admit, slowly downtrending since then. Hemoglobin riky of 6.9 on , given 1 unit of packed red blood cells at that time with good improvement in hemoglobin to around 8. Stable. No active signs of bleeding. Continue iron supplement. Continue to monitor CBC daily. 12/18: Hemoglobin and hematocrit 9.8/30%. It is baseline. 9. Thrombocytosis, stable ? Platelet count range between 650 and 800. Suspect due to acute stress state. 12/18: Platelet count 666,000. Has improved from, 800. 10. Dysphagia ? Speech therapy following. Remains n.p.o. on 12/17, largely because he is high risk for dysphagia after his prolonged intubation. Speech to see him again on 12/17, hopefully will be cleared for diet at that time. If not, will need to discuss alternative feeding options in the next few days. Chronic medical conditions: ? Obesity: BMI 32 on admit. Complicates hospital course, care and prognosis. ? Paranoid schizophrenia/anxiety and depression/sexual aggression: Lives in residential. Continue home Depakote, holding home Haldol and Ativan as noted above. ? Type 2 diabetes mellitus: Home regimen of insulin glargine 35 units at night, lispro 17 units with meals, metformin 1000 mg twice daily, Jardiance 25 mg daily. Continue Lantus 15 units twice daily, Humalog sliding scale with meals, adjust as needed. ? Hypothyroidism: Continue home Synthroid. ? CAD/hypertension/hyperlipidemia: Continue home aspirin, statin. Home amlodipine held with septic shock, restarted on 12/17. Holding home Lopressor due to bradycardia as noted above. Holding home losartan for JULIETTE. ? Tobacco abuse: Nicotine replacement therapy available as needed. DVT prophylaxis: Heparin subcu CODE STATUS: Full code, verified Expected disposition: Back to intermodal customer service care facility, TBD T Charges/Coding Visit Charges Inpatient E&M: 49897 Subs Hosp L2
[2023-12-19 09:36] LABS: Hematocrit 29.8 % (40-54); Hemoglobin 9.1 g/dL (13.0-16.5); Mean Corp Hgb Conc 30.5 g/dL (32-36); Mean Corpuscular Hgb 27.5 pg (27.0-32.0); Mean Platelet Vol. 10.9 fl (6.2-12.0); POSITIVE MORPHOLOGY YES; Platelet Count 666 K/mm3 (150-450); RBC Distribution Width CV 20.2 % (11.6-14.6); RBC Distribution Width SD 63.6 fl (35.1-43.9); Red Blood Count 3.31 M/mm3 (4.6-6.2); White Blood Count 10.5 K/mm3 (4.4-11.0)
[2023-12-19] MEDS: Insulin Glargine-YFGN 100 UNIT/ML Pen 15 UNIT SC ×2 (09:51→22:52)
[2023-12-19] MEDS: Senna/Docusate Sodium 1 Tablet 2 TABLET PO (09:51)
[2023-12-19] MEDS: MEDROXYPROGESTERONE ACETATE 10 MG TABLET PO ×2 (09:52→22:53)
[2023-12-19] MEDS: Heparin Injection (Vial) 5,000 UNIT/ML VIAL 5000 UNIT SC ×2 (09:52→22:54)
[2023-12-19] MEDS: Valproic Acid 250 MG/5 ML UDC 500 MG PO ×2 (09:52→22:53)
[2023-12-19] MEDS: Vancomycin Trough/Random Due 1 LAB MC (09:53)
[2023-12-19] MEDS: amLODIPine 5 MG Tablet PO (09:53)
[2023-12-19] MEDS: Menthol/Lanolin/Calamine/Znox 113 GM Tube 1 APPLIC TOPICAL ×2 (09:53→22:53)
[2023-12-19] MEDS: QUEtiapine 25 MG Tablet 50 MG PO ×2 (09:54→22:54)
[2023-12-19] MEDS: Pantoprazole Sodium 40 MG Tablet PO (09:56)
[2023-12-19 10:02] LABS: Scan Indicated on CBC? Y/N YES- FLAGS NOTED
[2023-12-19 10:04] LABS: Vancomycin, Random Level 11.4 ug/mL (0.0-15.0)
[2023-12-19 10:11] LABS: Anion Gap 8 (5-15); BUN 36 mg/dL (7-18); BUN/Creat Ratio 13.9 RATIO (10-20); Calcium,Total 9.4 mg/dL (8.5-10.1); Chloride 110 mmol/L (98-107); Creatinine, Serum 2.59 mg/dL (0.70-1.30); EST Glomerular Filtration Rate 27 mL/min (>60); Est Glom Filt Rate - Afr Amer 32 mL/min (>60); Glucose 251 mg/dL (74-106); Potassium 3.6 mmol/L (3.5-5.1); Sodium Level 144 mmol/L (136-145)
[2023-12-19 10:13] VITALS: BP 158/86; PULSE 85; RESP 16; TEMP 37; O2SAT 96
--- NOTE | 2023-12-19 10:34 | PCM.PN.REN ---
Subjective Subjective Following for JULIETTE superimposed on CKD Resting in bed, no overnight events Objective Data Objective Data Vital Signs: Vital Signs Temp Pulse Resp BP Pulse Ox O2 Del Method O2 Flow Rate 98.6 F 85 16 158/86 H 96 Room Air 2 12/19/23 10:13 12/19/23 10:13 12/19/23 10:13 12/19/23 10:13 12/19/23 10:13 12/19/23 10:13 12/16/23 20:45 FiO2 40 12/15/23 15:40 Oxygen Flow Rate (L/min) 2 Oxygen Delivery Method Room Air Weight: 118 kg Body Mass Index (BMI) 37.2 Intake & Output: Intake and Output for Last 24 Hours 12/17/23 12/18/23 12/19/23 23:59 23:59 23:59 Intake Total 567.50 / 567.50 1137.08 / 1137.08 945.83 / 945.83 Output Total 1850 / 1850 1250 / 1250 400 / 400 Balance -1282.50 / -1282.50 -112.92 / -112.92 545.83 / 545.83 Medical Nutrition Assessment Dietitian: Malnutrition Criteria Met Start: 12/01/23 09:36 Freq: Status: Active Protocol: Document 12/11/23 09:56 SARAHI (Rec: 12/11/23 09:56 [id number]) Nutrition Malnutrition Evidence of Malnutrition Exists Yes Malnutrition (severe): Acute Illness/Injury Evidenced By Suboptimal Energy Intake ( Severe),Weight Loss (Severe) Intake Problem Inadequate Oral Intake Etiology related to decreased ability to consume sufficient energy to meet estimated nutrient needs Signs/Symptoms as evidenced by extended NPO status x 10 days and intubation with need for enteral nutrition. Status Active Problem Clinical Problem Acute Disease or Injury Related Malnutrition Etiology severe, acute malnutrition related to inadequate energy intake d/t swallowing difficulties Signs/Symptoms as evidenced by unintentional 4% wt loss < 5 days, PO intake meeting <50% of estimated energy needs x 6 days Status Active Problem Recommendation Dietitian Recommendations/Changes NPO while intubated; Continue via OGT- Vital AF 1.2 Carloz at goal rate of 60mL/hour w/ decreased flush of 50mL H2O flush every 4 hours to provide 1728 calories, 108 g protein, and 1467mL total fluid/day. Lab / Micro Data 12/19/23 09:25 12/19/23 09:25 Labs: Laboratory Results - last 24 hr 12/18/23 11:22: POC Glucose 147 H 12/18/23 16:16: POC Glucose 170 H 12/18/23 21:33: POC Glucose 209 H 12/19/23 06:28: POC Glucose 219 H 12/19/23 09:25: WBC 10.5, RBC 3.31 L, Hgb 9.1 L, Hct 29.8 L, MCV 90.0, MCH 27.5, MCHC 30.5 L, RDW Std Deviation 63.6 H, RDW Coeff of Saman 20.2 H, Plt Count 666 H, MPV 10.9, Sodium 144, Potassium 3.6, Chloride 110 H, Carbon Dioxide 26.0, Anion Gap 8, BUN 36 H, Creatinine 2.59 H, Estim Creat Clear Calc 36.60, Est GFR (MDRD) Af Amer 32 L, Est GFR (MDRD) Non-Af 27 L, BUN/Creatinine Ratio 13.9, Glucose 251 H, Calcium 9.4, Random Vancomycin 11.4 Micro: Microbiology 12/03/23 16:20 Sputum, Induced/Lukens Gram Stain - Final 12/03/23 16:20 Sputum, Induced/Lukens Respiratory Culture - Final Meth. resistant Staph. aureus Yeast, not Evy albicans 11/29/23 09:50 Blood Culture (Wb) - Right Hand Blood Culture - Final No growth in 5 days. 12/03/23 16:55 Stool Enteric Bacteriology - Final 12/03/23 16:55 Stool Clostridioides difficile (PCR) - Final 11/28/23 13:16 Blood Culture (Wb) - Left Hand Blood Culture - Final No growth in 5 days. 11/25/23 10:45 Blood Culture (Wb) - Anticubital Right Blood Culture - Final No growth in 5 days. 11/25/23 10:38 Blood Culture (Wb) - Anticubital Left Blood Culture - Final Meth. resistant Staph. aureus 11/25/23 11:45 Urine, Catheterized Urine Culture - Final Culture exhibits no growth. 11/26/23 11:26 Stool Clostridioides difficile (PCR) - Final 11/25/23 11:40 Mucosa - Nose SARS-CoV-2, Influenza & RSV (PCR) - Final Rhythm Strip Rhythm Strip: Sinus Tach Rate: 123 Ectopy: - (No pauses noted.) Physical Exam Narrative No obvious distress S1, S2, RRR Lung sounds clear Abdomen soft, positive bowel sounds No pitting edema Assessment & Plan Assessment/Plan (1) JULIETTE (acute kidney injury): (2) Chronic kidney disease, stage 3b: (3) Hypernatremia: PLAN: Plan Impression/Plan: The patient is a 63-year-old man with past history of type 2 diabetes mellitus, hypertension, PAD, COPD, atrial fibrillation, iron deficiency, schizophrenia, and depression. The patient presented to hospital on 11/25/2023 with dyspnea and hypoxemia. The patient was admitted to hospital for treatment of MRSA pneumonia and circulatory shock secondary to sepsis. Nephrology is following for acute kidney injury. - Acute kidney injury on chronic kidney disease stage G3b. Baseline serum creatinine appears to be around 2.00 mg/dL. JULIETTE secondary to ischemic ATN. Creatinine peaked at 3.61 mg/dL on 12/06/2023 and has slowly improved, today creatinine 2.59 mg/dL. Okay to continue current dose of Lasix (40 mg p.o. daily) with monitoring of renal function. Patient had been on Lasix drip, then switched to intermittent Lasix, now on oral Lasix. No acute indication for HAND I BLOCKER. Continue off losartan. - Hypertension. Blood pressures have improved and now on amlodipine. Continue holding losartan. - Hypernatremia; Serum sodium peaked 150 yesterday. Patient was given D5W, will decrease rate. Today sodium improved to 144. Patient is currently n.p.o.
[2023-12-19 10:55] LABS: Differential Comment SCANNED
[2023-12-19 11:15] LABS: Bedside Glucose 242 mg/dL (74-106)
--- NOTE | 2023-12-19 11:35 | RAD_ITS ---
STUDY: X-RAY CHEST REASON FOR EXAM: Male, 63 years old. History of pneumonia. TECHNIQUE: Single AP portable view of the chest. COMPARISON: Comparison is made with prior study dated December 12, 2023. FINDINGS: The ET tube and orogastric tube have been removed. Persistent density in the left lower lobe suggestive of persistent left lower lobe infiltrate. There is blunting of the left costophrenic angle. The right lung is clear. Normal size heart. Normal mediastinum and myesha. Normal visualized pulmonary arteries. Normal visualized aortic arch and descending thoracic aorta. There are degenerative changes of the visualized thoracic spine. Normal visualized ribs, clavicles, and shoulders. There is no demonstrated abnormality of the visualized soft tissue structures of the upper abdomen. RAD/Chest 1 View (Portable) IMPRESSION: Persistent soft tissue density in the left lower lobe with blunting of the left costophrenic angle suggesting a focal infiltrate. Further follow-up recommended. Electronically Signed: Prakash Flowers MD at 12:02 EDT ,
[2023-12-19] MEDS: Ferrous Sulfate 300 MG/5 ML UDC PO (11:54)
--- NOTE | 2023-12-19 12:55 | SP.MBSS_ITS ---
Modified Barium Swallow Patient Information Study Date: 12/19/23 Study Time: 13:00 Direct Billable Minutes: 71 Total Minutes procedure & reportin Diagnosis: Pneumonia J18.9 Referring Physician: Ambrocio Del Angel Reason for Referral: Objectively assess swallow function, assess risk for aspiration, and determine recommendations for least restrictive diet textures and compensatory strategies to improve safety of swallow. Medical History: PMH: Anxiety and depression, Afib, Chest pain, Chronic anemia, CKD stage III, CH F, COPD, DM type 2, Anemia, HLD, HTN, hx of NSTEMI, Hypothyroidism, Schizophrenia, Smoker. The patient presented to [facility] ED 11/25/23 from SNF due to SOB and hypoxia (87%) at the facility. Poor historian d/t hx of schizophrenia and current illness. Patient admitted to PCU for management of sepsis secondary to PNA. Of note, he has had a seizure-like episode during this admission. He participated in BSE at start of admission and was recommended strict NPO by ST due to poor alertness and unstable cardiopulmonary status. He was transferred to ICU and required intubation 12/03/23 due to PNA secondary to influenza. He was extubated 12/15/23 after an extensive discussion was held between multiple providers and family to transition the patient to DNR CCA without intubation. It was also decided by family that they would not pursue tracheostomy and PEG tube placement. After ST re-evaluation, he was recommended to remain NPO d/t risk for aspiration. ST to complete MBS study to further assess swallow function and risk for aspiration. Current Diet Ordered: NPO Dentition: Edentulous Mental Status: Impaired Respiratory Status: Oxygenating on Room Air Penetration-Aspiration Scale Penetration-Aspiration Scale: OBJECTIVE ASSESSMENT OF SWALLOW FUNCTION (QUANTITATIVE ? PER TRIAL): PENETRATION / ASPIRATION SCALE (DINERO): 1 = does not enter airway 2 = enters airway/above vocal folds/ejected 3 = enters airway/above vocal folds/not ejected 4 = enters airway/contacts vocal folds/ejected 5 = enters airway/contacts vocal folds/not ejected 6 = enters airway/below vocal folds/ejected 7 = enters airway/below vocal folds/not ejected despite effort 8 = enters airway/below vocal folds/no effort VIDEOFLOROSCOPIC SCALE SCORE (DINERO): Grade I = aspiration of material that has penetrated into the laryngeal vestibule, intact cough reflex Grade II = aspiration < 10 % of the bolus, intact cough reflex Grade III = aspiration of < 10 % of the bolus, reduced cough reflex or aspiration of > 10 % of the bolus, intact cough reflex Grade IV = aspiration of > 10 % of the bolus, reduced cough reflex Penetration-Aspiration Scale Score Thin Liquid via teaspoon: Result: 1= does not enter airway Thin Liquid via teaspoon Trial 2: Result: 1= does not enter airway Thin Liquid via large single sip: cup: Result: 7= enters airways/below vocal folds/not ejected despite effort Thin Liquid via small single sip: cup: Result: 3= enters airways/above vocal folds/not ejected [place] Thick Liquid via small single sip: cup: Result: 3= enters airways/above vocal folds/not ejected Comment: Silent post prandial aspiration of the previous trial observed. Honey Thick Liquid via small single sip: cup: Result: 1= does not enter airway Comment: Silent post prandial aspiration of the previous trial observed. Pudding via teaspoon: Result: 1= does not enter airway Thin Liquid via teaspoon Trial 3: Result: 2= enter airway/above vocal folds/ejected Thin Liquid via small single sip: cup Effortful swallow: Result: 2= enter airway/above vocal folds/ejected Thin Liquid via small single sip: cup Effortful swallow Trial 2: Result: 7= enters airways/below vocal folds/not ejected despite effort Oral Phase Labial Seal: Escape beyond mid-chin Tongue Control During Bolus Hold: Posterior escape of greater than half of bolus Bolus Transport/Lingual Motion: Slowed tongue motion Oral Residue: Trace residue lining oral structures Pharyngeal Phase Initiation of Pharyngeal Swallow: Bolus head in pyriforms Soft Palate Elevation: Trace column of contrast/air between soft palate and pharyngeal wall Laryngeal Elevation: Partial superior movement thyroid cart/partial apprx aryt- epig petiole Anterior Hyoid Excursion: Partial anterior movement Epiglottic Movement: Complete inversion Laryngeal Vestibule Closure at Height of Swallow: Incomplete; narrow column of air/contrast in laryngeal vestibule Pharyngeal Stripping Wave: Present - diminished Pharyngoesophageal Segment Opening: Parital distension and partial duration; parital obstruction of flow Tongue Base Retraction: Narrow column of contrast between tongue base & post. pharyngeal wall Pharyngeal Residue: Collection of residue within or on pharyngeal structures Esophageal Phase Esophageal Clearance: Esophageal retention (Trace ) Diagnosis/Impression Diagnosis: Mild-Moderate Oropharyngeal Dysphagia R13.12 Impression: The oral phase is primarily marked by... -Decreased bolus control with >1/2 of the bolus spilling posteriorly to the pyriforms prior to swallow onset. -Slowed tongue motion for A-P transport -Did not complete cookie trial due to concerns for choking with decreased bolus control and impaired cognition. The pharyngeal phase is primarily marked by... -Decreased airway closure during the swallow due to decreased anterior hyoid excursion and decreased laryngeal elevation. -Decreased tongue base retraction, decreased UES opening/duration, and diminished pharyngeal stripping wave with resulting mil-moderate pharyngeal residues after the swallow. -Aspiration of thin liquids by cup with immediate coughing observed after the swallow. SILENT post-prandial aspiration of thin and nectar thick consistencies by cup. Consistent laryngeal penetration across thin and nectar thick liquid consistencies throughout the study. The esophageal phase is primarily marked by... -Trace-mild retention of pudding in the upper esophagus. Recommendations Diet: Puree Textures and Thin Liquids (by tsp only) Compensatory Strategies: Small Bites, Liquid by Teaspoon Only, Slow Rate, Alternate bites/solids and sips/liquids, Sitting upright and Remain sitting up right for 30 minutes after PO intake Supervision: Total Feed Recommend Repeat Modified Barium Swallow: Yes (In 2-4 weeks after implementation of oropharyngeal exercise program) Need for Skilled Speech Therapy Services: Yes Comment: -Train the patient and staff in use of strategies to decrease risk for aspiration. -Ongoing assessment of diet tolerance of recommended textures. -Train the patient oropharyngeal exercise program to improve bolus control, airway closure, pharyngeal motility, and swallow onset (lingual resistance, effortful, Samantha, CTAR). Education Completed: 1. Described result of evaluation., 2. Pt understands evaluation & agrees with goals and treatment plan. and 7. Pt requires further education on strategies & risks. Status Active ST Patient: Active Contact Information [facility] Speech Therapy:: Suzy Saravia M.A. [facility] Speech-Language Pathologist [facility] [address] [place] [address] [email or web address] [phone]
--- NOTE | 2023-12-19 12:57 | PCM.PN.ID ---
Physical Exam Narrative Feeling better, minimal cough, no fever Const alert and no apparent distress General Appearance: cooperative Resp normal air movement and clear to auscultation bilaterally Cardio regular rate and regular rhythm GI soft to palpation, non-tender and non-distended Skin no rashes or lesions noted ID ID: Route of nutrition/ use of supplements: [] Nutritional Intake: [] IV Site: [] Browning Catheter: [] Assessment & Plan Assessment/Plan (1) MRSA bacteremia: PLAN: suspected due to post-flu pneumonia. On vanc. No veg seen on TTE. Bcx cleared 11/27. JLUIETTE on CKD improved. Will finish abx course with one more week linezolid for 4 weeks total from bcx clearance on 11/27. Will follow as needed, thank you (2) Sepsis:
[2023-12-19 15:21] VITALS: BP 153/84; PULSE 86; RESP 16; TEMP 37.2; O2SAT 95
[2023-12-19 15:35] LABS: Bedside Glucose 231 mg/dL (74-106)
[2023-12-19] MEDS: Dextrose 5%-Water (1000mL Bag) 1,000 ML 75 ML IV (17:09)
[2023-12-19 17:21] LABS: Bedside Glucose 142 mg/dL (74-106)
[2023-12-19 22:30] VITALS: BP 141/83; PULSE 96; RESP 16; TEMP 36.8; O2SAT 95
[2023-12-19] MEDS: traZODone 100 MG Tablet PO (22:53)
[2023-12-19] MEDS: Valproic Acid 250 MG/5 ML UDC PO (22:53)
[2023-12-19] MEDS: Linezolid 600 MG Tablet PO (22:54)
[2023-12-19] MEDS: Atorvastatin Calcium 80 MG Tablet PO (22:55)
[2023-12-19 23:00] VITALS: O2SAT 96
[2023-12-19 23:23] LABS: Bedside Glucose 286 mg/dL (74-106)
[2023-12-20] MEDS: Dextrose 5%-Water (1000mL Bag) 1,000 ML 75 ML IV (06:10)
[2023-12-20] MEDS: Levothyroxine 50 MCG Tablet PO (06:11)
[2023-12-20] MEDS: Nystatin Powder 15gm Bottle 1 APPLIC TOPICAL ×2 (06:11→14:13)
[2023-12-20] MEDS: Insulin Lispro 100 UNIT/ML INSULN.PEN SC ×2 (06:14→12:25)
[2023-12-20 06:17] VITALS: O2SAT 100
[2023-12-20 06:19] VITALS: BMI 27.8
[2023-12-20 06:22] VITALS: BP 142/78; PULSE 84; RESP 16; TEMP 36.6; O2SAT 100
[2023-12-20 07:49] VITALS: BP 144/87; PULSE 76; RESP 16; TEMP 37.1; O2SAT 97
[2023-12-20 07:53] LABS: Bedside Glucose 212 mg/dL (74-106)
[2023-12-20 08:51] LABS: Pathologist Review Reviewed
--- NOTE | 2023-12-20 10:06 | CASEMGMT ---
Addendum entered by Esme Rowe 12/20/23 10:50: IMAN telephoned Lilo at [facility] and let her know MD stated pt possibly ready for DC today. Lilo stated facility can accept today and requested nurse to nurse call and call back with belt picker time. CARMELITA Campbell Original Note: Social Work This worker telephoned [facility] and spoke with Lilo. IMAN asked if facility was planning on skilling patient or if a new Level of Care needed at pt discharge. Lilo stated patient is not out of bed hold days yet so would not need level of care if DC in next couple days. Lilo asked this worker to fax records for their review to see if they can skill him. IMAN faxed records. Lilo will return call with decision and when bed hold days are up. CARMELITA Campbell
--- NOTE | 2023-12-20 11:36 | TREXTCAR_ITS ---
Diet Diet Order/Speech Therapy: 12/20/23 07:37 Diet: Transitional Food consistency:: Pureed Liquid Consistency:: Regular/Thin Type of Dietary Supplement:: Glucerna Shake Is pt able to select menu?: No Diet Comments: TOTAL FEED, Liquids by tsp only. Small Bites, total feed supervision Routine Orders/Code Status Suppository Type: Dulcolax 10mg Suppository Frequency: Daily PRN Code Status: DNRCC-A Wound(s) distal Rt anterior mauricio: Wound Type: Skin Tear right upper arm: Wound Type: Skin Tear Therapies Weight Bearing: Weight bearing as tolerated Extremity Affected:: Bilateral Lower Physical Therapy: Eval and Treat Occupational Therapy: Eval and Treat Speech Therapy: Eval and Treat Problem/Diagnosis (1) MRSA bacteremia: Status: Acute Code(s): R78.81 - Bacteremia; B95.62 - Methicillin resistant Staphylococcus aureus infection as the cause of diseases classified elsewhere (2) Sepsis: Status: Acute Code(s): A41.9 - Sepsis, unspecified organism Plan Patient is a 63-year-old male who presented to [facility] ED on 11/25/2023 with worsening shortness of breath. 1. Acute hypoxic and hypercapnic respiratory failure, resolved Initially hypoxia presumed secondary to secondary MRSA pneumonia after recent flu pneumonia. Had worsening mental status and hypoxia on 12/02 requiring intubation. She was found to be hypercapnic postintubation. This was suspected secondary to decreased respiratory drive from possible overmedication as notable below. ? Employee Benefits Administrator followed. Patient was extubated on 12/14 after 13 days on the ventilator. Had lengthy discussion with family prior to extubation and patient was changed to DNR CCA, DNI status. Fortunately, patient has done very well since extubation. Transferred to [facility] on 12/15. Weaned to room air at rest on 12/16. Continue to monitor. 12/18: Patient is still on room air. Difficulty in swallowing. Patient going for modified barium swallow today. 2. Hypotension with concern for shock, resolved; sepsis without shock secondary to MRSA bacteremia Initially presented with sepsis and found to have MRSA bacteremia presumed secondary to a MRSA pneumonia that developed post influenza pneumonia. TTE showed no valvular abnormalities. Developed hypotension after intubation and sedation, suspected that hypotension is likely secondary to sedation requirements. ? Employee Benefits Administrator followed, ID following. Hemodynamically stable, has been off Levophed since morning of 12/05. Meropenem started postintubation on 12/03, discontinued 12/07 after negative cultures. Continue vancomycin, appreciate ID recs on length of course needed. 3. Acute metabolic encephalopathy Patient noted to have worsening mentation on 11/27 of unclear etiology. Neurolog y was consulted for questionable seizure activity. MRI brain negative, EEG negative. Lab workup fairly benign. Neurology suspected toxic metabolic encephalopathy that was multifactorial in setting of sepsis, pneumonia, JULIETTE, delirium and polypharmacy from sedative medications of Ativan, Haldol and DPA, as well as a poor mental status at baseline. Patient required intubation on 12/02 as noted above. ? Neurology followed. Extubated on 12/14 as noted above. Home Haldol and Ativan were held while patient was intubated, was initiated on Seroquel and Depakene at that time. Will continue Seroquel and Depakene for now and continue to hold Haldol and Ativan. Monitor. 4. JULIETTE on suspected CKD stage IIIb, stable Creatinine 2.05 on admit, baseline creatinine around 1.8-2.1. Noted to have acutely worsened creatinine to 3.08 on 11/28 which then recovered back to baseline by 12/01. However, again had worsening of creatinine to 3.27 on 12/03 with decreased urine output suspected to be secondary to ATN from sepsis. ? Nephrology following. Creatinine has remained stable around 2.7-2.9 since 12/08. Transitioned off Lasix drip to IV Lasix 40 mg twice daily on 12/12. Patient noted to be somewhat dry on 12/16, likely due to discontinuation of tube feeds after extubation and decreased p.o. intake to this point. Holding diuresis on 12/16 and given small fluid bolus, with plan to resume p.o. Lasix on 12/17. Continue to monitor daily BMP and urine output. 12/18: Creatinine similar 2.59 from last 2 days. Patient had hyponatremia sodium 146, 150 but has improved to 144. Free water recommended 5. Volume overload, improved ? Patient noted to be +10 L from volume status standpoint on 12/04, secondary to heavy IV fluids administered in setting of sepsis and concern for shock as noted above. Employee Benefits Administrator followed, nephrology following as above. 6. A-fib with RVR, bradycardia with sinus pauses ? Cardiology evaluated on 11/29. Patient was noted to be on high-dose beta- diogo at that time and had some pauses on monitoring, unclear if patient was symptomatic with these pauses. Not an urgent pacemaker candidate given bacteremia. Beta-diogo discontinued. Has had improvement in heart rate and no recent sinus pauses. Continue cardiac monitoring. 7. Hypernatremia ? Nephrology following as above. Patient was hypernatremic early in the admission, sodium peaked at 152 on 12/02. He was intubated on 12/02 and sodium returned to normal range on 12/05 after patient received hypotonic fluids and was started on tube feeds. Patient extubated on 12/14, has remained n.p.o. since then. Sodium now uptrending with most recent sodium 150 on 12/17. Speech therapy following as below, if patient cleared for diet will start diet and encourage fluid intake. However if not clear for diet, will plan to start D5W and will need to discuss alternative feeding options in the next few days. 8. Acute on chronic anemia, stable ? Known history of iron deficiency anemia, was on home iron supplement. Hemoglobin 10.5 on admit, slowly downtrending since then. Hemoglobin riky of 6.9 on , given 1 unit of packed red blood cells at that time with good improvement in hemoglobin to around 8. Stable. No active signs of bleeding. Continue iron supplement. Continue to monitor CBC daily. 12/18: Hemoglobin and hematocrit 9.8/30%. It is baseline. 9. Thrombocytosis, stable ? Platelet count range between 650 and 800. Suspect due to acute stress state. 12/18: Platelet count 666,000. Has improved from, 800. 10. Dysphagia ? Speech therapy following. Remains n.p.o. on 12/17, largely because he is high risk for dysphagia after his prolonged intubation. Speech to see him again on 12/17, hopefully will be cleared for diet at that time. If not, will need to discuss alternative feeding options in the next few days. Chronic medical conditions: ? Obesity: BMI 32 on admit. Complicates hospital course, care and prognosis. ? Paranoid schizophrenia/anxiety and depression/sexual aggression: Lives in jail. Continue home Depakote, holding home Haldol and Ativan as noted above. ? Type 2 diabetes mellitus: Home regimen of insulin glargine 35 units at night, lispro 17 units with meals, metformin 1000 mg twice daily, Jardiance 25 mg daily. Continue Lantus 15 units twice daily, Humalog sliding scale with meals, adjust as needed. ? Hypothyroidism: Continue home Synthroid. ? CAD/hypertension/hyperlipidemia: Continue home aspirin, statin. Home amlodipine held with septic shock, restarted on 12/17. Holding home Lopressor due to bradycardia as noted above. Holding home losartan for JULIETTE. ? Tobacco abuse: Nicotine replacement therapy available as needed. DVT prophylaxis: Heparin subcu CODE STATUS: Full code, verified Expected disposition: Back to [facility] terminal operator care facility, TBD T Allergies/Procedures Done in Hospital Allergies No Known Allergies Allergy (Verified 11/25/23 10:09) Type of Care/Length of Stay Estimated LOS: More Than 30 Days Type of Care Needed: Intermediate Rehab Potential: Fair Prognosis: Fair Additional Orders/Day of Discharge Day of Discharge: 12/20/23 Dietary and Speech Recommendations Dietitian Recommendations/Changes: recommend advance diet as tolerated to CHO controlled, no added salt- texture/consistency per CHILD'S NURSE; will add Glucerna ONS w/ meals given concern for malnutrition Discharge Plan Admission Admit Date/Time: 11/25/23 13:29 Primary Reason for Your Visit: MRSA bacteremia Attending Provider: Ambrocio Del Angel Primary Care Provider: Bernard Hankins Consulting Providers: Cuco Pagan; Jesus Lundberg; Ashley Abad; Antonella Gottlieb; Vashti Burns; Kaye Irivng; Onofre Middleton; Christine Curtis; Emir Terrell; Marko Pederson; Bambi David; Adarsh Puckett; Marycarmen Light; Antoinette Mojica; Topher Mcmillan; Modesto Marshall; Danial Hawkins; Benedicto Wadsworth; Kelley Adams; Omar Becerra; Kerry Glover; Fred Vargas; Ramy Mon; Tsering Gann; Dean Patel; Deisy Kam; Cielo Martinez; Koby Kaur; Sascha Wills; PRASANNA WEBB; Deni Apodaca; Yeny Harvey Discharge Orders/Prescriptions Prescriptions: New linezolid 600 mg Tablet 600 mg PO BID 7 Days Qty: 14 0RF sennosides-docusate sodium [Stool Softener-Stimulant Laxat] 8.6-50 mg Tablet 2 tab PO BID Qty: 0 0RF pantoprazole 40 mg Tablet,Delayed Release (Dr/Ec) 40 mg PO DAILY Qty: 0 0RF insulin lispro [Humalog KwikPen Insulin] 100 unit/mL Insulin Pen See Protocol subcut ACHS Qty: 0 0RF Protocol: 4. Sliding Scale Insulin High-Med Dosing Condition: 150-199 mg/dl = 2 units Condition: 200-259 mg/dl = 4 units Condition: 260-324 mg/dl = 6 units Condition: 325-374 mg/dl = 8 units Condition: 375-409 mg/dl = 10 units Condition: 410-449 mg/dl = 11 units Condition: Greater than 449 call physician Protocol Text: - Use for Total Daily Dose of Insulin 56-80 units - Patient who are insulin resistant or septic HIGH MEDIUM DOSING ALGORITHM menthol-zinc oxide [Calmoseptine] 0.44-20.6 % Ointment 1 applic topical BID Qty: 0 0RF Protocol: *Topical Application Instructions APPLICATION INSTRUCTIONS: Apply to affected areas. Continued acetaminophen [Tylenol] 325 mg tablet 650 mg PO Q4H PRN (Reason: fever or pain) lorazepam 1 mg tablet 1 mg PO BID Patient Comments: PT TAKES 1 TAB TWICE DAILTY ROUTINE, AND THEN 1 TAB EVERY 6 HOURS NEEDED. medroxyprogesterone [Provera] 10 mg tablet 10 mg PO BID furosemide [Lasix] 40 mg tablet 40 mg PO DAILY divalproex [Depakote] 250 mg tablet,delayed release (DR/EC) 250 mg PO BID atorvastatin 80 MG tablet 80 mg PO DAILY lorazepam 1 MG tablet 1 mg PO Q6H PRN (Reason: Agitation) Patient Comments: PT TAKES 1 TAB TWICE DAILTY ROUTINE, AND THEN 1 TAB EVERY 6 HOURS NEEDED. haloperidol 5 MG tablet 5 mg PO Q6H PRN (Reason: Agitation) Patient Comments: PT TAKES 2MG THREE TIMES A DAY ROUTINELY, AND 5MG EVERY 6 HOURS NEEDED trazodone 100 MG tablet 100 mg PO QHS levothyroxine 50 MCG tablet 50 mcg PO DAILY cholecalciferol (vitamin D3) 2,000 UNIT capsule 2,000 unit PO DAILY albuterol sulfate 0.63 mg/3 mL solution for nebulization 0.63 mg inhalation TID Patient Comments: PT TAKES THREE TIMES DAILY ROUTINE, THEN EVERY 4 HOURS NEEDED nicotine (polacrilex) 2 mg Lozenge 2 mg BUCCAL Q2H PRN (Reason: smoking alternative) ferrous sulfate 325 mg (65 mg iron) Tablet 325 mg PO DAILY haloperidol 2 mg Tablet 2 mg PO TID Patient Comments: PT TAKES 2MG THREE TIMES A DAY ROUTINELY, AND 5MG EVERY 6 HOURS NEEDED metoprolol tartrate 100 mg Tablet 100 mg PO BID 30 Days Qty: 0 0RF divalproex [Depakote ER] 500 mg tablet extended release 24 hr 500 mg PO BID aspirin [Adult Aspirin Regimen] 81 mg tablet,delayed release (DR/EC) 81 mg PO DAILY glucagon HCl [Glucagon (HCl) Emergency Kit] 1 mg recon soln 1 mg IM Q20M PRN (Reason: hypoglycemia) Rx Instructions: until target blood sugar attained albuterol sulfate 0.63 mg/3 mL solution for nebulization 0.63 mg inhalation Q4H PRN (Reason: shortness of breath or wheezing) Patient Comments: PT TAKES THREE TIMES DAILY ROUTINE, THEN EVERY 4 HOURS NEEDED amlodipine 5 mg tablet 5 mg PO DAILY Qty: 90 0RF Changed insulin glargine [Lantus U-100 Insulin] 100 unit/mL solution 18 unit subcut QHS 1 Days Qty: 0 0RF insulin lispro 100 unit/mL cartridge 10 unit subcut TID 1 Days Qty: 0 0RF Rx Instructions: HOLD INSULIN LISPRO IF BS IS <100 Held metformin 1,000 MG tablet 1,000 mg PO BID Hold Instructions: Hold for creatinine clearance less than 30 mill per minute Discontinued Jardiance 25 mg tablet 25 mg PO DAILY losartan 100 mg tablet 100 mg PO DAILY magnesium hydroxide [Milk of Magnesia] 400 mg/5 mL Suspension 30 ml PO DAILY PRN (Reason: Constipation) alum-mag hydroxide-simeth [Mylanta Maximum Strength] 400-400-40 mg/5 mL Suspension 15 ml PO Q4H PRN (Reason: heartburn/indigestion) Nicotrol 10 mg cartridge 1 inh inhalation Q2H PRN (Reason: nicotine cravings) Rx Instructions: DO NOT EXCEED 8 CARTIDGES A DAY prednisone 20 mg tablet 40 mg PO DAILY 3 Days Qty: 6 0RF oseltamivir [Tamiflu] 75 mg capsule 75 mg PO DAILY Referrals / Follow Up: Jabier Mallory DO [Med Staff - Active Staff] - Within 1 Month Deisy Kam MD [Med Staff - Consulting] - Tano Soria MD [Med Staff - Active Staff] - Within 1 Month Ifeanyi Lopez MD [Non-Staff -Ordering Privileges] - Within 1 Month Bernard Hankins MD [Primary Care Provider] - Disposition Disposition (needs filled in before D/C Order can be placed): NonSkilled NH/Intermed Care
[2023-12-20] MEDS: amLODIPine 5 MG Tablet PO (11:41)
[2023-12-20] MEDS: Linezolid 600 MG Tablet PO (11:41)
[2023-12-20] MEDS: Pantoprazole Sodium 40 MG Tablet PO (11:41)
[2023-12-20] MEDS: QUEtiapine 25 MG Tablet 50 MG PO (11:41)
[2023-12-20] MEDS: Furosemide 40 MG Tablet PO (11:43)
[2023-12-20] MEDS: Valproic Acid 250 MG/5 ML UDC 500 MG PO (11:44)
[2023-12-20] MEDS: Aspirin 81 MG TAB.CHEW PO (11:44)
[2023-12-20] MEDS: MEDROXYPROGESTERONE ACETATE 10 MG TABLET PO (11:44)
[2023-12-20] MEDS: Heparin Injection (Vial) 5,000 UNIT/ML VIAL 5000 UNIT SC (11:44)
[2023-12-20] MEDS: Menthol/Lanolin/Calamine/Znox 113 GM Tube 1 APPLIC TOPICAL (11:45)
[2023-12-20] MEDS: Insulin Glargine-YFGN 100 UNIT/ML Pen 15 UNIT SC (11:50)
--- NOTE | 2023-12-20 11:52 | DS.PCM_ITS ---
Providers Date of Admission: 11/25/23 Date of Discharge: 12/20/23 Primary Care Physician: Dr. Bernard Hankins MD Consultations 11/28/23 09:06 neuro [Consult: Tele-Neurology] Routine Consulting Provider: [facility] Reason for Consult: possible seizure EMERGENT Consult: No MD Notified: Yes Date Notified: 11/28/23 Time Notified: 09:07 Method of Notification: Verbal Nursing Unit Staff Notify [facility] of Tele-Neurology Consult: Yes 11/28/23 09:09 Neurology [Consult: Tele-Neurology] Routine Consulting Provider: [facility] Reason for Consult: seizure EMERGENT Consult: No MD Notified: Yes Date Notified: 11/28/23 Time Notified: 09:10 Method of Notification: Answering Service Nursing Unit Staff Notify [facility] of Tele-Neurology Consult: Yes 11/28/23 12:11 Consult: Infectious Disease Routine Consulting Provider: Dean Patel Reason for Consult: staph bacteremia EMERGENT Consult: No MD Notified: Yes Date Notified: 11/28/23 Time Notified: 12:11 Method of Notification: Verbal 11/30/23 21:50 Consult: Alliances Consultant / Pulmonary Medicine Routine Consulting Provider: Intensivists/Pulmonary Med Reason for Consult: Sepsis, MRSA bacteremia, PNA, now with sinus pauses, cardio following also. EMERGENT Consult: No MD Notified: Yes Date Notified: 11/30/23 Time Notified: 20:13 Method of Notification: Text 12/03/23 14:17 Consult: Alliances Consultant / Pulmonary Medicine Routine Consulting Provider: Intensivists/Pulmonary Med Reason for Consult: Respiratory Failure EMERGENT Consult: No MD Notified: Yes Date Notified: 12/03/23 Time Notified: 14:17 Method of Notification: Text 12/04/23 14:10 Consult: Nephrology Routine Consulting Provider: Deisy Kam Reason for Consult: JULIETTE on CKD EMERGENT Consult: No MD Notified: Yes Date Notified: 12/04/23 Time Notified: 14:10 Method of Notification: Verbal 12/15/23 10:06 Consult: General Surgery Routine Consulting Provider: Tsering Gann Reason for Consult: PEG EMERGENT Consult: No MD Notified: Yes Date Notified: 12/15/23 Time Notified: 10:06 Method of Notification: Verbal Reason For Visit: SEPSIS DUE TO PNEUMONIA Diagnosis Discharge Diagnosis (1) MRSA bacteremia: Status: Acute Code(s): R78.81 - Bacteremia; B95.62 - Methicillin resistant Staphylococcus aureus infection as the cause of diseases classified elsewhere (2) Sepsis: Status: Acute Code(s): A41.9 - Sepsis, unspecified organism Plan Patient is a 63-year-old male who presented to [facility] ED on 11/25/2023 with worsening shortness of breath. 1. Acute hypoxic and hypercapnic respiratory failure, resolved Initially hypoxia presumed secondary to secondary MRSA pneumonia after recent f preethi pneumonia. Had worsening mental status and hypoxia on 12/02 requiring intubation. She was found to be hypercapnic postintubation. This was suspected secondary to decreased respiratory drive from possible overmedication as notable below. ? Alliances Consultant followed. Patient was extubated on 12/14 after 13 days on the ventilator. Had lengthy discussion with family prior to extubation and patient was changed to DNR CCA, DNI status. Fortunately, patient has done very well since extubation. Transferred to [facility] on 12/15. Weaned to room air at rest on 12/16. Continue to monitor. 12/18: Patient is still on room air. Difficulty in swallowing. Patient going for modified barium swallow today. 12/19: Patient is discharged on 1 more week off linezolid 600 mg twice daily to complete total of 4 weeks. Discussed with ID. Follow-up in pulmonary clinic. 2. Hypotension with concern for shock, resolved; sepsis without shock secondary to MRSA bacteremia Initially presented with sepsis and found to have MRSA bacteremia presumed secondary to a MRSA pneumonia that developed post influenza pneumonia. TTE showed no valvular abnormalities. Developed hypotension after intubation and sedation, suspected that hypotension is likely secondary to sedation requirements. ? Alliances Consultant followed, ID following. Hemodynamically stable, has been off Levophed since morning of 12/05. Meropenem started postintubation on 12/03, discontinued 12/07 after negative cultures. Continue vancomycin, appreciate ID recs on length of course needed. 3. Acute metabolic encephalopathy Patient noted to have worsening mentation on 11/27 of unclear etiology. Neurology was consulted for questionable seizure activity. MRI brain negative, EEG negative. Lab workup fairly benign. Neurology suspected toxic metabolic encephalopathy that was multifactorial in setting of sepsis, pneumonia, JULIETTE, delirium and polypharmacy from sedative medications of Ativan, Haldol and DPA, as well as a poor mental status at baseline. Patient required intubation on 12/02 as noted above. ? Neurology followed. Extubated on 12/14 as noted above. Home Haldol and Ativan were held while patient was intubated, was initiated on Seroquel and Depakene at that time. Will continue Seroquel and Depakene for now and continue to hold Haldol and Ativan. Monitor. 4. JULIETTE on suspected CKD stage IIIb, stable Creatinine 2.05 on admit, baseline creatinine around 1.8-2.1. Noted to have acutely worsened creatinine to 3.08 on 11/28 which then recovered back to baseline by 12/01. However, again had worsening of creatinine to 3.27 on 12/03 with decreased urine output suspected to be secondary to ATN from sepsis. ? Nephrology following. Creatinine has remained stable around 2.7-2.9 since 12/08. Transitioned off Lasix drip to IV Lasix 40 mg twice daily on 12/12. Patient noted to be somewhat dry on 12/16, likely due to discontinuation of tube feeds after extubation and decreased p.o. intake to this point. Holding diuresis on 12/16 and given small fluid bolus, with plan to resume p.o. Lasix on 12/17. Continue to monitor daily BMP and urine output. 12/18: Creatinine similar 2.59 from last 2 days. Patient had hyponatremia sodium 146, 150 but has improved to 144. Free water recommended 12/19: Continue follow-up with [facility]comb decapper outpatient. Discharged on furosemide. 5. Volume overload, improved ? Patient noted to be +10 L from volume status standpoint on 12/04, secondary to heavy IV fluids administered in setting of sepsis and concern for shock as noted above. Alliances Consultant followed, nephrology following as above. 6. A-fib with RVR, bradycardia with sinus pauses ? Cardiology evaluated on 11/29. Patient was noted to be on high-dose beta- diogo at that time and had some pauses on monitoring, unclear if patient was symptomatic with these pauses. Not an urgent pacemaker candidate given bacteremia. Beta-diogo discontinued. Has had improvement in heart rate and no recent sinus pauses. Continue cardiac monitoring. 7. Hypernatremia ? Nephrology following as above. Patient was hypernatremic early in the admission, sodium peaked at 152 on 12/02. He was intubated on 12/02 and sodium returned to normal range on 12/05 after patient received hypotonic fluids and was started on tube feeds. Patient extubated on 12/14, has remained n.p.o. since then. Sodium now uptrending with most recent sodium 150 on 12/17. Speech therapy following as below, if patient cleared for diet will start diet and encourage fluid intake. However if not clear for diet, will plan to start D5W and will need to discuss alternative feeding options in the next few days. 8. Acute on chronic anemia, stable ? Known history of iron deficiency anemia, was on home iron supplement. Hemoglobin 10.5 on admit, slowly downtrending since then. Hemoglobin riky of 6.9 on , given 1 unit of packed red blood cells at that time with good improvement in hemoglobin to around 8. Stable. No active signs of bleeding. Continue iron supplement. Continue to monitor CBC daily. 12/18: Hemoglobin and hematocrit 9.8/30%. It is baseline. 9. Thrombocytosis, stable ? Platelet count range between 650 and 800. Suspect due to acute stress state. 12/18: Platelet count 666,000. Has improved from, 800. 10. Dysphagia ? Speech therapy following. Remains n.p.o. on 12/17, largely because he is high risk for dysphagia after his prolonged intubation. Speech to see him again on 12/17, hopefully will be cleared for diet at that time. If not, will need to discuss alternative feeding options in the next few days. Chronic medical conditions: ? Obesity: BMI 32 on admit. Complicates hospital course, care and prognosis. ? Paranoid schizophrenia/anxiety and depression/sexual aggression: Lives in jail. Continue home Depakote, holding home Haldol and Ativan as noted above. ? Type 2 diabetes mellitus: Home regimen of insulin glargine 35 units at night, lispro 17 units with meals, metformin 1000 mg twice daily, Jardiance 25 mg daily. Continue Lantus 15 units twice daily, Humalog sliding scale with meals, adjust as needed. ? Hypothyroidism: Continue home Synthroid. ? CAD/hypertension/hyperlipidemia: Continue home aspirin, statin. Home amlodipine held with septic shock, restarted on 12/17. Holding home Lopressor due to bradycardia as noted above. Holding home losartan for JULIETTE. ? Tobacco abuse: Nicotine replacement therapy available as needed. DVT prophylaxis: Heparin subcu CODE STATUS: Full code, verified Expected disposition: [facility], TBD Discharge medication reconciliation done. Discharge follow-up instructions comp leted. Discharge process discussed with the patient and all questions were answered to patient's satisfaction. Follow with PCP in 1 to 2 weeks. Follow-up with hemodialysis lab technician, housefellow, neurologist and ID. Discharge to group home, intermittently care Total time spent, exact 35 minutes on discharge meds reconciliation, examination, coordination of care with nurses and ancillary staff, review of imaging and blood test and discussion with the patient on follow-up instructions. T Medications at Discharge Home Medications atorvastatin 80 mg tablet 80 mg PO DAILY arterial disease 07/25/19 cholecalciferol (vitamin D3) 50 mcg (2,000 unit) capsule 2,000 unit PO DAILY supplement 07/25/19 haloperidol 5 mg tablet 5 mg PO Q6H PRN Agitation 07/25/19 levothyroxine 50 mcg tablet 50 mcg PO DAILY hypothyroid 07/25/19 lorazepam 1 mg tablet 1 mg PO Q6H PRN Agitation 07/25/19 metformin 1,000 mg tablet 1,000 mg PO BID DM 07/25/19 trazodone 100 mg tablet 100 mg PO QHS insom 07/25/19 albuterol sulfate 0.63 mg/3 mL solution for nebulization 0.63 mg inhalation TID Wheezing 09/23/21 nicotine (polacrilex) 2 mg buccal lozenge 2 mg buccal Q2H PRN smoking alternative 09/24/21 acetaminophen 325 mg tablet (Tylenol) 650 mg PO Q4H PRN fever or pain 11/10/21 ferrous sulfate 325 mg (65 mg iron) tablet 325 mg PO DAILY iron 07/21/22 haloperidol 2 mg tablet 2 mg PO TID agitation 07/21/22 metoprolol tartrate 100 mg tablet 100 mg PO BID htn 30 days #0 tabs 07/23/22 divalproex 250 mg tablet,delayed release (Depakote) 250 mg PO BID paranoid schizophrenia 08/11/22 furosemide 40 mg tablet (Lasix) 40 mg PO DAILY chf 08/11/22 amlodipine 5 mg tablet 5 mg PO DAILY #90 tabs 08/30/22 divalproex 500 mg tablet,extended release 24 hr (Depakote ER) 500 mg PO BID paranoid schizopreh 07/20/23 lorazepam 1 mg tablet 1 mg PO BID anxiety 07/20/23 medroxyprogesterone 10 mg tablet (Provera) 10 mg PO BID sexual aggression 07/20/23 aspirin 81 mg tablet,delayed release (Adult Aspirin Regimen) 81 mg PO DAILY PVD 11/19/23 glucagon HCl 1 mg solution for injection (Glucagon (HCl) Emergency Kit) 1 mg IM Q20M PRN hypoglycemia 11/19/23 albuterol sulfate 0.63 mg/3 mL solution for nebulization 0.63 mg inhalation Q4H PRN shortness of breath or wheezing 11/25/23 insulin glargine 100 unit/mL subcutaneous solution (Lantus U-100 Insulin) 18 u nit (0.18 mL) subcut QHS diabetes 1 day #0 mL 12/20/23 insulin lispro 100 unit/mL subcutaneous cartridge 10 unit (0.1 mL) subcut TID hyperglycemia 1 day #0 mL 12/20/23 insulin lispro 100 unit/mL subcutaneous pen (Humalog KwikPen (U-100) Insulin) See Protocol subcut ACHS #0 mL 12/20/23 linezolid 600 mg tablet 600 mg PO BID 1 week #14 tabs 12/20/23 menthol 0.44 %-zinc oxide 20.6 % topical ointment (Calmoseptine) 1 applic topical BID #0 grams 12/20/23 pantoprazole 40 mg tablet,delayed release 40 mg PO DAILY #0 tabs 12/20/23 sennosides 8.6 mg-docusate sodium 50 mg tablet (Stool Softener-Stimulant Laxative) 2 tab PO BID #0 tabs 12/20/23 Physical Exam Narrative Seen and examined on the day of discharge On supervised feeding. On diuretic but no significant change in lower extremity edema. Prolonged hospitalization with intubation for 13 days, along with multiple issues including JULIETTE on CKD and hyponatremia. Patient also has psychiatry comorbidities Physical exam General: Awake, oriented x 3. HEENT: Atraumatic, PERRLA, EOMI, Normocephalic Oral: Oral mucosa moist. No Gingival or Mucosal Lesions/ Ulcerations Neck: Supple, No JVD, Negative Carotid Bruits Chest wall/Lungs: Air entry diminished in bilateral lung bases. No crepitation/rhonchi Cardiovascular: Regular rate, Regular Rhythm, Normal S1, Normal S2, No M/G/R Abdomen: Bowel Sounds Present, Soft, Non Tender, Non-Distended : No dysuria. No renal angle tenderness. No suprapubic tenderness. Extremities: Mild edema of lower extremity, Capillary Refill Less than 3 Seconds Skin: No rashes, No breakdown Musculoskeletal: No Tenderness to Palpation of Joints or Extremities. ROM restricted. Neurological: Cranial nerves II-XII grossly intact, DTR 2+/4. No acute focal neurological deficit. Psych/Mental Status: Flat affect Medical Records Data Medical Nutrition Assessment Dietitian: Malnutrition Criteria Met Start: 12/01/23 09:36 Freq: Status: Active Protocol: Document 12/20/23 10:33 AG (Rec: 12/20/23 10:33 [id number]) Nutrition Malnutrition Evidence of Malnutrition Exists Yes Malnutrition (severe): Acute Illness/Injury Evidenced By Suboptimal Energy Intake ( Severe),Weight Loss (Severe) Intake Problem Inadequate Oral Intake Etiology related to swallowing difficulty s/p intubation Signs/Symptoms as evidenced by prolonged NPO status, current PO intake meeting <75% of estimated energy needs Status Active Problem Clinical Problem Acute Disease or Injury Related Malnutrition Etiology related to inadequate energy intake Signs/Symptoms as evidenced by estimated PO intake meeting <50% of estimated energy needs x 5 days, unintentional 16% wt loss < 1 month Status Active Problem Recommendation Dietitian Recommendations/Changes recommend advance diet as tolerated to CHO controlled, no added salt- texture/ consistency per DESK MANAGER; will add Glucerna ONS w/ meals given concern for malnutrition Weight / BMI Weight Weight: 194 lb 0.108 oz Body Mass Index (BMI) 27.8 ABG / Lab / Microbiology Data 12/19/23 09:25 12/19/23 09:25 Laboratory: Laboratory Results - last 24 hr 12/17/23 05:26: Diff Path Review Reviewed 12/19/23 11:52: POC Glucose 231 H 12/19/23 16:43: POC Glucose 142 H 12/19/23 22:49: POC Glucose 286 H 12/20/23 06:13: POC Glucose 212 H Microbiology: Microbiology 12/03/23 16:20 Sputum, Induced/Lukens Gram Stain - Final 12/03/23 16:20 Sputum, Induced/Lukens Respiratory Culture - Final Meth. resistant Staph. aureus Yeast, not Evy albicans 11/29/23 09:50 Blood Culture (Wb) - Right Hand Blood Culture - Final No growth in 5 days. 12/03/23 16:55 Stool Enteric Bacteriology - Final 12/03/23 16:55 Stool Clostridioides difficile (PCR) - Final 11/28/23 13:16 Blood Culture (Wb) - Left Hand Blood Culture - Final No growth in 5 days. 11/25/23 10:45 Blood Culture (Wb) - Anticubital Right Blood Culture - Final No growth in 5 days. 11/25/23 10:38 Blood Culture (Wb) - Anticubital Left Blood Culture - Final Meth. resistant Staph. aureus 11/25/23 11:45 Urine, Catheterized Urine Culture - Final Culture exhibits no growth. 11/26/23 11:26 Stool Clostridioides difficile (PCR) - Final 11/25/23 11:40 Mucosa - Nose SARS-CoV-2, Influenza & RSV (PCR) - Final Radiography Diagnostic Testing: Radiology Impression Chest X-Ray 12/19/23 11:35 IMPRESSION: Persistent soft tissue density in the left lower lobe with blunting of the left costophrenic angle suggesting a focal infiltrate. Further follow-up recommended. Electronically Signed: Prakash Flowers MD at 12:02 EDT , Meaningful Use Info Meaningful Use Diagnoses (Choose all that apply): None applicable Discharge Plan Admission Admit Date/Time: 11/25/23 13:29 Primary Reason for Your Visit: MRSA bacteremia Attending Provider: Ambrocio Del Angel Primary Care Provider: Bernard Hankins Consulting Providers: Cuco Pagan; Jesus Lundberg; Ashley Abad; Antonella Gottlieb; Vashti Burns; Kaye Irving; Onofre Middleton; Christine Curtis; Emir Terrell; Marko Pederson; Bambi David; Adarsh Puckett; Marycarmen Light; Antoinette Mojica; Topher Mcmillan; Modesto Marshall; Danial Hawkins; Benedicto Wadsworth; Kelley Adams; Omar Becerra; Kerry Glover; Fred Vargas; Ramy Mon; Tsering Gann; Dean Patel; Deisy Kam; Cielo Martinez; Koby Kaur; Sascha Wills; PRASANNA WEBB; Deni Apodaca; Yeny Harvey Discharge Orders/Prescriptions Prescriptions: New linezolid 600 mg Tablet 600 mg PO BID 7 Days Qty: 14 0RF sennosides-docusate sodium [Stool Softener-Stimulant Laxat] 8.6-50 mg Tablet 2 tab PO BID Qty: 0 0RF pantoprazole 40 mg Tablet,Delayed Release (Dr/Ec) 40 mg PO DAILY Qty: 0 0RF insulin lispro [Humalog KwikPen Insulin] 100 unit/mL Insulin Pen See Protocol subcut ACHS Qty: 0 0RF Protocol: 4. Sliding Scale Insulin High-Med Dosing Condition: 150-199 mg/dl = 2 units Condition: 200-259 mg/dl = 4 units Condition: 260-324 mg/dl = 6 units Condition: 325-374 mg/dl = 8 units Condition: 375-409 mg/dl = 10 units Condition: 410-449 mg/dl = 11 units Condition: Greater than 449 call physician Protocol Text: - Use for Total Daily Dose of Insulin 56-80 units - Patient who are insulin resistant or septic HIGH MEDIUM DOSING ALGORITHM menthol-zinc oxide [Calmoseptine] 0.44-20.6 % Ointment 1 applic topical BID Qty: 0 0RF Protocol: *Topical Application Instructions APPLICATION INSTRUCTIONS: Apply to affected ar eas. Continued acetaminophen [Tylenol] 325 mg tablet 650 mg PO Q4H PRN (Reason: fever or pain) lorazepam 1 mg tablet 1 mg PO BID Patient Comments: PT TAKES 1 TAB TWICE DAILTY ROUTINE, AND THEN 1 TAB EVERY 6 HOURS NEEDED. medroxyprogesterone [Provera] 10 mg tablet 10 mg PO BID furosemide [Lasix] 40 mg tablet 40 mg PO DAILY divalproex [Depakote] 250 mg tablet,delayed release (DR/EC) 250 mg PO BID atorvastatin 80 MG tablet 80 mg PO DAILY lorazepam 1 MG tablet 1 mg PO Q6H PRN (Reason: Agitation) Patient Comments: PT TAKES 1 TAB TWICE DAILTY ROUTINE, AND THEN 1 TAB EVERY 6 HOURS NEEDED. haloperidol 5 MG tablet 5 mg PO Q6H PRN (Reason: Agitation) Patient Comments: PT TAKES 2MG THREE TIMES A DAY ROUTINELY, AND 5MG EVERY 6 HOURS NEEDED trazodone 100 MG tablet 100 mg PO QHS levothyroxine 50 MCG tablet 50 mcg PO DAILY cholecalciferol (vitamin D3) 2,000 UNIT capsule 2,000 unit PO DAILY albuterol sulfate 0.63 mg/3 mL solution for nebulization 0.63 mg inhalation TID Patient Comments: PT TAKES THREE TIMES DAILY ROUTINE, THEN EVERY 4 HOURS NEEDED nicotine (polacrilex) 2 mg Lozenge 2 mg BUCCAL Q2H PRN (Reason: smoking alternative) ferrous sulfate 325 mg (65 mg iron) Tablet 325 mg PO DAILY haloperidol 2 mg Tablet 2 mg PO TID Patient Comments: PT TAKES 2MG THREE TIMES A DAY ROUTINELY, AND 5MG EVERY 6 HOURS NEEDED metoprolol tartrate 100 mg Tablet 100 mg PO BID 30 Days Qty: 0 0RF divalproex [Depakote ER] 500 mg tablet extended release 24 hr 500 mg PO BID aspirin [Adult Aspirin Regimen] 81 mg tablet,delayed release (DR/EC) 81 mg PO DAILY glucagon HCl [Glucagon (HCl) Emergency Kit] 1 mg recon soln 1 mg IM Q20M PRN (Reason: hypoglycemia) Rx Instructions: until target blood sugar attained albuterol sulfate 0.63 mg/3 mL solution for nebulization 0.63 mg inhalation Q4H PRN (Reason: shortness of breath or wheezing) Patient Comments: PT TAKES THREE TIMES DAILY ROUTINE, THEN EVERY 4 HOURS NEEDED amlodipine 5 mg tablet 5 mg PO DAILY Qty: 90 0RF Changed insulin glargine [Lantus U-100 Insulin] 100 unit/mL solution 18 unit subcut QHS 1 Days Qty: 0 0RF insulin lispro 100 unit/mL cartridge 10 unit subcut TID 1 Days Qty: 0 0RF Rx Instructions: HOLD INSULIN LISPRO IF BS IS <100 Held metformin 1,000 MG tablet 1,000 mg PO BID Hold Instructions: Hold for creatinine clearance less than 30 mill per minute Discontinued Jardiance 25 mg tablet 25 mg PO DAILY losartan 100 mg tablet 100 mg PO DAILY magnesium hydroxide [Milk of Magnesia] 400 mg/5 mL Suspension 30 ml PO DAILY PRN (Reason: Constipation) alum-mag hydroxide-simeth [Mylanta Maximum Strength] 400-400-40 mg/5 mL Suspension 15 ml PO Q4H PRN (Reason: heartburn/indigestion) Nicotrol 10 mg cartridge 1 inh inhalation Q2H PRN (Reason: nicotine cravings) Rx Instructions: DO NOT EXCEED 8 CARTIDGES A DAY prednisone 20 mg tablet 40 mg PO DAILY 3 Days Qty: 6 0RF oseltamivir [Tamiflu] 75 mg capsule 75 mg PO DAILY Referrals / Follow Up: Jabier Mallory DO [Med Staff - Active Staff] - Within 1 Month Deisy Kam MD [Med Staff - Consulting] - Tano Soria MD [Med Staff - Active Staff] - Within 1 Month Ifeanyi Lopez MD [Non-Staff -Ordering Privileges] - Within 1 Month Bernard Hankins MD [Primary Care Provider] - Disposition Disposition (needs filled in before D/C Order can be placed): NonSkilled NH/Intermed Care Charges/Coding Visit Charges Inpatient E&M: 73080 Disch Hosp >30min
--- NOTE | 2023-12-20 11:56 | PHA.DC.MR.R ---
Pharmacy [facility] Med Reconciliation Pharmacy Service has performed discharge medication reconciliation for this patient. The patient's discharge medication list was reviewed for discrepancies and discrepancies were resolved.
[2023-12-20 12:16] LABS: Bedside Glucose 229 mg/dL (74-106)
--- NOTE | 2023-12-20 12:16 | CASEMGMT ---
Pt is ready to return today, is able to return intermediate level of care, does have bedhold days left. SW faxed over the transfer to extended care and med list as they cannot access [facility] at this time. SW did send the updates and discharge paperwork also through [facility] in the event they can access it sometime today. IMAN set up a 3pm ambulance w/Physicians. IMAN let pt's bedside RN know time, he is speaking to pt's brother/POMichael Heck, and Umang is also agreeable to pt leaving today at 3[place] [facility] IMAN called Marcella at [facility] and let her know pt will be leaving today at 3pm. No further needs, [place] [facility] [place] [facility]. EV Port[place]
[2023-12-20] MEDS: Ferrous Sulfate 300 MG/5 ML UDC PO (12:24)
[2023-12-20] MEDS: Senna/Docusate Sodium 1 Tablet 2 TABLET PO (12:27)
[2023-12-20 14:01] VITALS: BP 158/78; PULSE 77; RESP 18; TEMP 36.9; O2SAT 98
--- NOTE | 2023-12-20 19:35 | PCM.PN.REN ---
Subjective Subjective no new events Objective Data Objective Data Vital Signs: Vital Signs Temp Pulse Resp BP Pulse Ox O2 Del Method O2 Flow Rate 98.4 F 77 18 158/78 H 98 Room Air 2 12/20/23 14:01 12/20/23 14:01 12/20/23 14:01 12/20/23 14:01 12/20/23 14:01 12/20/23 14:01 12/16/23 20:45 FiO2 40 12/15/23 15:40 Oxygen Flow Rate (L/min) 2 Oxygen Delivery Method Room Air Weight: 88 kg Body Mass Index (BMI) 27.8 Intake & Output: Intake and Output for Last 24 Hours 12/18/23 12/19/23 12/20/23 23:59 23:59 23:59 Intake Total 1137.08 / 1137.08 1825.41 / 1825.41 1568.75 / 1568.75 Output Total 1250 / 1250 650 / 650 525 / 525 Balance -112.92 / -112.92 1175.41 / 1175.41 1043.75 / 1043.75 Lab / Micro Data 12/19/23 09:25 12/19/23 09:25 Labs: Laboratory Results - last 24 hr 12/17/23 05:26: Diff Path Review Reviewed 12/19/23 22:49: POC Glucose 286 H 12/20/23 06:13: POC Glucose 212 H 12/20/23 11:53: POC Glucose 229 H Micro: Microbiology 12/03/23 16:20 Sputum, Induced/Lukens Gram Stain - Final 12/03/23 16:20 Sputum, Induced/Lukens Respiratory Culture - Final Meth. resistant Staph. aureus Yeast, not Evy albicans 11/29/23 09:50 Blood Culture (Wb) - Right Hand Blood Culture - Final No growth in 5 days. 12/03/23 16:55 Stool Enteric Bacteriology - Final 12/03/23 16:55 Stool Clostridioides difficile (PCR) - Final 11/28/23 13:16 Blood Culture (Wb) - Left Hand Blood Culture - Final No growth in 5 days. 11/25/23 10:45 Blood Culture (Wb) - Anticubital Right Blood Culture - Final No growth in 5 days. 11/25/23 10:38 Blood Culture (Wb) - Anticubital Left Blood Culture - Final Meth. resistant Staph. aureus 11/25/23 11:45 Urine, Catheterized Urine Culture - Final Culture exhibits no growth. 11/26/23 11:26 Stool Clostridioides difficile (PCR) - Final 11/25/23 11:40 Mucosa - Nose SARS-CoV-2, Influenza & RSV (PCR) - Final Rhythm Strip Rhythm Strip: Sinus Tach Rate: 123 Ectopy: - (No pauses noted.) Physical Exam Narrative No obvious distress S1, S2, RRR Lung sounds clear Abdomen soft, positive bowel sounds No pitting edema Const alert, no apparent distress and average body habitus General Appearance: well developed and patient mechanically ventilated Orientation / Consciousness: oriented to person HEENT normocephalic Neck no lymphadenopathy Resp no use of accessory muscles Auscultation: rhonchi throughout and diminished lung sounds Cardio regular rate and no murmurs Cardio Narrative: Tachycardic GI non-tender and non-distended Auscultation: normoactive bowel sounds Palpation: soft and no hepatosplenomegaly external exam normal Bladder / Kidney Exam: catheter in place Extremity no clubbing, cyanosis or edema Skin no rashes or lesions noted Neuro Sensorium / Orientation: awake, alert and sedated on vent Psych cooperative Assessment & Plan Assessment/Plan (1) JULIETTE (acute kidney injury): (2) Chronic kidney disease, stage 3b: (3) Hypernatremia: PLAN: Plan Impression/Plan: The patient is a 63-year-old man with past history of type 2 diabetes mellitus, hypertension, PAD, COPD, atrial fibrillation, iron deficiency, schizophrenia, and depression. The patient presented to hospital on 11/25/2023 with dyspnea and hypoxemia. The patient was admitted to hospital for treatment of MRSA pneumonia and circulatory shock secondary to sepsis. Nephrology is following for acute kidney injury. - Acute kidney injury on chronic kidney disease stage G3b. Baseline serum creatinine appears to be around 2.00 mg/dL. JULIETTE secondary to ischemic ATN. Creatinine peaked at 3.61 mg/dL on 12/06/2023 and has slowly improved - Hypertension. Blood pressures have improved
== END 2023-12-20 16:10 | disposition intermediate care facility (04) | DRG 870 ==
LOC: ED 10:59 → PCU 13:42 → ICU 11-30 20:41 → MS3 12-16 17:45
PROVIDERS: Family Medicine; Hospitalist; Internal Medicine; Internal Medicine Critical Care Medicine; Internal Medicine Infectious Disease; Student in an Organized Health Care Education/Training Program; Admitting Provider Family Medicine; Emergency Provider Student in an Organized Health Care Education/Training Program; PCP Family Medicine; Visit Provider Internal Medicine
DX: A41.02 Sepsis due to Methicillin resistant Staphylococcus aureus (principal); J96.01 Acute respiratory failure with hypoxia; R57.0 Cardiogenic shock; N17.0 Acute kidney failure with tubular necrosis; J69.0 Pneumonitis due to inhalation of food and vomit; G92.8 Other toxic encephalopathy; J15.212 Pneumonia due to Methicillin resistant Staphylococcus aureus; E43 Unspecified severe protein-calorie malnutrition; I50.33 Acute on chronic diastolic (congestive) heart failure; J96.02 Acute respiratory failure with hypercapnia; I46.2 Cardiac arrest due to underlying cardiac condition; F20.0 Paranoid schizophrenia; I13.0 Hypertensive heart and chronic kidney disease with heart failure and stage 1 through stage 4 chronic kidney disease, or unspecified chronic kidney disease; I24.89 Other forms of acute ischemic heart disease; E87.0 Hyperosmolality and hypernatremia; N18.32 Chronic kidney disease, stage 3b; E11.22 Type 2 diabetes mellitus with diabetic chronic kidney disease; I48.91 Unspecified atrial fibrillation; E11.51 Type 2 diabetes mellitus with diabetic peripheral angiopathy without gangrene; E11.65 Type 2 diabetes mellitus with hyperglycemia; Z79.4 Long term (current) use of insulin; E03.9 Hypothyroidism, unspecified; F32.A Depression, unspecified; D63.1 Anemia in chronic kidney disease; D50.9 Iron deficiency anemia, unspecified; I95.2 Hypotension due to drugs; E78.5 Hyperlipidemia, unspecified; I25.10 Atherosclerotic heart disease of native coronary artery without angina pectoris; E87.6 Hypokalemia; D75.838 Other thrombocytosis; F41.9 Anxiety disorder, unspecified; F17.210 Nicotine dependence, cigarettes, uncomplicated; I25.2 Old myocardial infarction; E66.9 Obesity, unspecified; R13.10 Dysphagia, unspecified; Z66 Do not resuscitate; Z68.32 Body mass index [BMI] 32.0-32.9, adult; Z79.51 Long term (current) use of inhaled steroids; Z79.84 Long term (current) use of oral hypoglycemic drugs; Z79.899 Other long term (current) drug therapy
CPT/HCPCS: 31500; 31720; 36415; 36600; 70450; 70551; 71045; 71250; 74230; 80048; 80053; 80164; 80202; 81001; 82140; 82550; 82607; 82728; 82746; 82803; 82962; 83540; 83550; 83605; 83735; 83880; 84443; 84478; 84484; 85025; 85027; 85610; 85730; 86850; 86900; 86901; 86920; 86922; 87040; 87070; 87077; 87086; 87186; 87205; 87493; 87506; 87631; 92526; 92610; 92611; 93005; 93306; 94002; 94003; 94640; 94660; 94760; 94762; 95819; 97110; 97161; 97162; 97166; 97530; 97535; 97802; 97803; 99252; 99285; J2185; J7030; J7040; J7050; J7120; P9016; P9047; P9612; A4216; G0463; J0295; J1940; J7799

== ENCOUNTER 2024-01-06 13:06 | Inpatient (IN) | payer MEDICARE, MEDICAID, SELFPAY ==
[2024-01-06] VITALS (14 sets, daily range): BP systolic 104–146; BP diastolic 61–92; PULSE 49–67; RESP 12–39; TEMP 28.4–34.4; O2SAT 93–98; BMI 32.3; BMI 31.8
[2024-01-06] MEDS: 0.9% Normal Saline (500mL Bag) 500 ML 1000 ML IV (13:35)
--- NOTE | 2024-01-06 13:38 | CT_ITS ---
STUDY: CT BRAIN WITHOUT CONTRAST REASON FOR EXAM: Male, 63 years old. AMS RADIATION DOSAGE (If Supplied By Facility): CTDIvol = ( 47.06 ) mGy, DLP = ( 1013.85 ) mGycm TECHNIQUE: Transaxial CT imaging of the brain was performed without administration of intravenous contrast material. Individualized dose optimization techniques were used for this CT. COMPARISON: Comparison is made with prior study dated November 28, 2023. FINDINGS: Normal soft tissue structures. Normal calvarium. There is mild cerebral atrophy with widening of the extra-axial spaces and ventricular dilatation. There are areas of decreased attenuation within the white matter tracts of the supratentorial brain, consistent with microvascular disease changes. Stable old lacunar infarct in the left centrum semiovale. Normal basal ganglia and thalami. Normal brainstem. Normal cerebellum. There is no intracranial hemorrhage. There are no findings of an acute ischemic infarction. Atherosclerotic plaque formation of the vertebral arteries and cavernous portions of the internal carotid arteries bilaterally. Normal visualized paranasal sinuses. CT/Brain/Head without Contrast IMPRESSION: Chronic involutional changes of the brain. Electronically Signed: Prakash Flowers MD at 14:09 EDT ,
[2024-01-06 13:48] LABS: Absolute Lymphocyte Count 1.71 X10^3/uL (0.83-4.51); Basophil# 0.05 X10^3/uL; Basophil% 0.4 % (0-1); Eosinophil# 0.24 X10^3/uL; Eosinophils% 1.9 % (0-5); Hematocrit 27.3 % (40-54); Hemoglobin 8.1 g/dL (13.0-16.5); Lymphocyte # 1.71 X10^3/ul (0.83-4.51); Lymphocyte % 13.4 % (19-41); Mean Corp Hgb Conc 29.7 g/dL (32-36); Mean Corpuscular Hgb 27.7 pg (27.0-32.0); Mean Corpuscular Volume 93.5 fL (80-94); Mean Platelet Vol. 11.5 fl (6.2-12.0); Monocyte# 0.57 X10^3/uL; Monocyte% 4.5 % (0-10); NRBC Flagged by Analyzer 0.5 % (0-5); Neutrophil # 9.99 X10^3/uL (2.7-7.7); Neutrophil % 78.2 % (47-70); POSITIVE MORPHOLOGY YES; Platelet Count 221 K/mm3 (150-450); RBC Distribution Width CV 20.1 % (11.6-14.6); RBC Distribution Width SD 67.6 fl (35.1-43.9); Red Blood Count 2.92 M/mm3 (4.6-6.2); White Blood Count 12.8 K/mm3 (4.4-11.0)
[2024-01-06 13:49] LABS: Differential Indicated SCAN CRITERIA MET
--- NOTE | 2024-01-06 13:55 | RAD_ITS ---
STUDY: X-RAY CHEST REASON FOR EXAM: Male, 63 years old. AMS TECHNIQUE: Single AP portable view of the chest. COMPARISON: Comparison is made with prior study December 19, 2023. FINDINGS: EKG electrodes are seen. Patchy infiltrate in the right lung base. Persistent left lower lobe infiltrate although there has been improvement. Increased markings are also seen in the left upper lobe. Radiographic follow-up is recommended. Blunting of the left costophrenic angle. Normal size heart. Normal mediastinum and myesha. Normal visualized pulmonary arteries. Normal visualized aortic arch and descending thoracic aorta. Normal visualized thoracic spine. Normal visualized ribs, clavicles, and shoulders. There is no demonstrated abnormality of the visualized soft tissue structures of the upper abdomen. RAD/Chest 1 View (Portable) IMPRESSION: Patchy infiltrate in the right lower lobe as well as in the left upper lobe and left lower lobes. The previously seen infiltrate in the left lower lobe has improved. There is blunting of the left costophrenic angle. Electronically Signed: Prakash Flowers MD at 14:11 EDT ,
[2024-01-06 14:12] LABS: Acanthocytes 2+; Anisocytosis 2+; Differential Comment SCANNED; Macrocytosis 1+; Microcytosis 1+
--- NOTE | 2024-01-06 14:39 | EX.ED.DYSGE1 ---
HPI History of Present Illness Chief Complaint: Mental Status Change PFSH PFSH Medical History JULIETTE (acute kidney injury) Anxiety and depression Atrial fibrillation Chest pain Chronic anemia CKD (chronic kidney disease), stage III Congestive heart failure (CHF) COPD (chronic obstructive pulmonary disease) Diabetes mellitus, type 2 Fe deficiency anemia HLD (hyperlipidemia) HTN (hypertension) Hx of non-ST elevation myocardial infarction (NSTEMI) Hypothyroidism Obesity PVD (peripheral vascular disease) Schizophrenia Sepsis Smoker Tobacco use Home Medications atorvastatin 80 mg tablet 80 mg PO DAILY arterial disease 07/25/19 [History Last Taken 11/24/23] cholecalciferol (vitamin D3) 50 mcg (2,000 unit) capsule 2,000 unit PO DAILY supplement 07/25/19 [History Last Taken 11/25/23] haloperidol 5 mg tablet 5 mg PO Q6H PRN Agitation 07/25/19 [History Last Taken 11/15/23] levothyroxine 50 mcg tablet 50 mcg PO DAILY hypothyroid 07/25/19 [History Last Taken 11/25/23] lorazepam 1 mg tablet 1 mg PO Q6H PRN Agitation 07/25/19 [History Last Taken 11/15/23] trazodone 100 mg tablet 100 mg PO QHS insom 07/25/19 [History Last Taken 11/24/23] albuterol sulfate 0.63 mg/3 mL solution for nebulization 0.63 mg inhalation TID Wheezing 09/23/21 [History Last Taken 11/25/23] nicotine (polacrilex) 2 mg buccal lozenge 2 mg buccal Q2H PRN smoking alternative 09/24/21 [History Last Taken Unknown] acetaminophen 325 mg tablet (Tylenol) 650 mg PO Q4H PRN fever or pain 11/10/21 [History Last Taken Unknown] ferrous sulfate 325 mg (65 mg iron) tablet 325 mg PO DAILY iron 07/21/22 [History Last Taken 11/25/23] haloperidol 2 mg tablet 2 mg PO TID agitation 07/21/22 [History Last Taken 11/25/23] divalproex 250 mg tablet,delayed release (Depakote) 250 mg PO BID paranoid schizophrenia 08/11/22 [History Last Taken 11/24/23] furosemide 40 mg tablet (Lasix) 40 mg PO DAILY chf 08/11/22 [History Last Taken 11/24/23] amlodipine 5 mg tablet 5 mg PO DAILY #90 tabs 08/30/22 [Rx Last Taken 11/25/23] divalproex 500 mg tablet,extended release 24 hr (Depakote ER) 500 mg PO BID paranoid schizopreh 07/20/23 [History Last Taken 11/25/23] lorazepam 1 mg tablet 1 mg PO BID anxiety 07/20/23 [History Last Taken 11/25/23] medroxyprogesterone 10 mg tablet (Provera) 10 mg PO BID sexual aggression 07/20/23 [History Last Taken 11/25/23] aspirin 81 mg tablet,delayed release (Adult Aspirin Regimen) 81 mg PO DAILY PVD 11/19/23 [History Last Taken 11/25/23] glucagon HCl 1 mg solution for injection (Glucagon (HCl) Emergency Kit) 1 mg IM Q20M PRN hypoglycemia 11/19/23 [History Last Taken Unknown] insulin glargine 100 unit/mL subcutaneous solution (Lantus U-100 Insulin) 18 unit (0.18 mL) subcut QHS diabetes 1 day #0 mL 12/20/23 [Rx Last Taken 11/24/23] insulin lispro 100 unit/mL subcutaneous cartridge 10 unit (0.1 mL) subcut TID hyperglycemia 1 day #0 mL 12/20/23 [Rx Last Taken 11/24/23] insulin lispro 100 unit/mL subcutaneous pen (Humalog KwikPen (U-100) Insulin) See Protocol subcut ACHS #0 mL 12/20/23 [Rx Last Taken Unknown] menthol 0.44 %-zinc oxide 20.6 % topical ointment (Calmoseptine) 1 applic topical BID #0 grams 12/20/23 [Rx Last Taken Unknown] pantoprazole 40 mg tablet,delayed release 40 mg PO DAILY #0 tabs 12/20/23 [Rx Last Taken Unknown] sennosides 8.6 mg-docusate sodium 50 mg tablet (Stool Softener-Stimulant Laxative) 2 tab PO BID #0 tabs 12/20/23 [Rx Last Taken Unknown] doxycycline hyclate 100 mg capsule 100 mg PO BID 01/06/24 [History Last Taken Unknown] empagliflozin 25 mg tablet (Jardiance) 25 mg PO DAILY 01/06/24 [History Last Taken Unknown] fluconazole 200 mg tablet (Diflucan) 200 mg PO DAILY 01/06/24 [History Last Taken Unknown] metoprolol tartrate 50 mg tablet 50 mg PO BID 01/06/24 [History Last Taken Unknown] Allergy/AdvReac Type Severity Reaction Status Date / Time No Known Allergies Allergy Verified 01/06/24 13:35 Family History Mother No family history of disorders Father No family history of disorders Other Hypertension Surgical History No history of previous surgery No history of previous surgery Social History household members: other details: [facility]. housing: other details: [facility]. Smoking Status: Current every day smoker tobacco type: cigarettes alcohol intake: never substance use type: does not use EXAM Physical Exam Const Vital Signs: 01/06/24 13:09 01/06/24 13:19 01/06/24 14:19 Temperature 87.8 F L 87.8 F L 88.1 F L Temperature Source Rectal Rectal Rectal Pulse Rate 57 L 60 50 L Respiratory Rate 13 22 H 12 Respiratory Pattern Blood Pressure 145/88 H 145/88 H 119/66 Blood Pressure Mean 107 107 83 Pulse Ox 95 95 95 Oxygen Delivery Method Room Air Room Air Room Air Oxygen Flow Rate (L/min) 01/06/24 15:00 01/06/24 15:44 01/06/24 16:00 Temperature 87.8 F L Temperature Source Rectal Pulse Rate 57 L 57 L Respiratory Rate 20 H 15 Respiratory Pattern Normal Blood Pressure 127/69 H 123/61 H Blood Pressure Mean 88 81 Pulse Ox 98 97 Oxygen Delivery Method Nasal Cannula Nasal Cannula Oxygen Flow Rate (L/min) 4 4 MDM MDM MDM Narrative Medical decision making narrative: HISTORY OF PRESENT ILLNESS: 63-year-old male presents with change mental status. Patient's mental status precludes him providing reliable history. Per EMS patient was found to be lethargic. Reported history of prior pneumonia and intubation per EMS. REVIEW OF SYSTEMS: Unable to obtain reliable review of system secondary to the patient's acuity of condition PHYSICAL EXAM: Nursing triage notes reviewed, Vital signs reviewed Constitutional: please see mdm HENT: MMM Eyes: Pupils equal round and reactive to light, Extraocular muscles intact Neck: No stridor, no JVD, full neck ROM Lungs: Clear to auscultation, No wheezing or rales. No increased work of breathing, no conversational dyspnea, no accessory muscle use, no nasal flaring. No respiratory distress noted Heart: Regular rate and rhythm, No murmurs, No rubs and No gallops, 2+ distal pulses (radial, femoral, posterior tibial) in all extremities Abdomen: Soft, t no apparent tenderness rigidity, rebound or guarding, no obvious peritoneal signs, no palpable pulsatile abdominal masses, no auscultated abdominal bruit : No CVAT, excoriations noted to bilateral groin tissue, no perineal crepitus fluctuance or induration. Extremities: No edema Neuro: Somnolent, responds to painful stimuli, localizes to painful stimuli, sometimes follows commands, appears to move all 4 extremities, appears to have sensation all 4 extremities Skin: No rash or lesions noted MEDICAL DECISION MAKING: Chief Complaint: AMS External records reviewed: Prior records reviewed: Last hospitalization for altered mental status, possible seizure. At this time patient's CODE STATUS was changed to DNR CCA, DNI Factors affecting care: hypothyroidism, hypertension, hyperlipidemia, type 2 diabetes, schizophrenia Social determinants of health: Schizophrenia History obtained from others: EMS Consults: Internal medicine (Dr. Aiken) MDM Narrative: Patient was initially hypothermic, bradycardic otherwise afebrile. There is no discoloration to bilateral lower extremities otherwise no significant skin issues or genital infections noted there was some excoriation noted to the bilateral groin tissue. I considered the following differential diagnosis: ICH, hepatic encephalopathy, metabolic cephalopathy, endocrine encephalopathy, dehydration, infection Given altered mental status and positive history of obtained a broad lab and imaging workup to further elucidate the etiology of patient's complaints During patient's ED course he did have concern for cardiac arrest. This lasted for only seconds and when he did not have a pulse on the monitor however he quickly regained both palpable and electrical capture with pulses and return to his initial presentation of altered mental status. Of note the patient's chart does have a history of sinus pauses. ALL IMAGES (IF OBTAINED) HAVE BEEN PERSONALLY REVIEWED AND INTERPRETED BY MYSELF. EKG with sinus bradycardia, prolonged MD interval, prolonged QT interval, no obvious STEMI, Chest x-ray was read reviewed myself shows evidence of right lobe infiltrate concerning for pneumonia CBC with leukocytosis suggestive of systemic summation, noted baseline anemia, no thrombocytopenia noted BMP with hypernatremia, no signs of metabolic acidosis or endorgan hypoperfusion, noted improvement in baseline CKD Lactate elevated consistent with endorgan hypoperfusion LFTs show no evidence of hepatobiliary pathology. Troponin elevated consistent with myocardial ischemia similar to prior studies (likely demand ischemia from hypoxia and CKD) CK within normal limits TSH elevated concerning for hypothyroidism however patient has no other signs of hypothyroidism or myxedema coma including hypotension. Urinalysis shows no evidence of urinary inflammation suggestive of UTI Ammonia within normal limits CT scan of the head shows no evidence of intracranial abnormality The synthesis of the patient history, physical exam, labs images suggest multifactorial etiology with altered mental status primarily could be associated with Community acquired pneumonia resulting hypoxia. Given hypoxia, altered mental status and elevated troponin patient will need inpatient admission. The patient and/or family, caregivers express understanding. The patient and/or family, caregivers agrees with the plan. Shared decision making: I will have a discussion with the patient and or visitors regarding risk/benefits of further testing or admission. They will be made aware of of the risk/benefits inherent in this decision they will be given the opportunity to voice understanding. Total critical care time today provided was at least 0 minutes. This excludes separately billable procedures. Critical care time (if documented) is secondary to the patient having high probability of clinically significant/life threatening deterioration in the patient's condition which required my urgent intervention. Impression: 1. Altered mental status 2. Elevated troponin 3. CKD 4. Elevated lactate 5. Community-acquired pneumonia 6. Hypoxia Dispo: Admit to ICU This note was generated with [employer] dictation software. It may contain incorrect words, spelling, and punctuation that were not noted in review of the chart prior to signing. Lab Data Labs: Laboratory Results - last 24 hr 01/06/24 01/06/24 01/06/24 13:29 14:35 14:43 WBC 12.8 H RBC 2.92 L Hgb 8.1 L Hct 27.3 L MCV 93.5 MCH 27.7 MCHC 29.7 L RDW Std Deviation 67.6 H RDW Coeff of Saman 20.1 H Plt Count 221 MPV 11.5 Immature Gran % (Auto) 1.600 H Neut % (Auto) 78.2 H Lymph % (Auto) 13.4 L Henry % (Auto) 4.5 Eos % (Auto) 1.9 Baso % (Auto) 0.4 Absolute Neuts (auto) 10.0 H Absolute Lymphs (auto) 1.71 Nucleated RBC % 0.5 Differential Comment SCANNED Anisocytosis 2+ Microcytosis 1+ Macrocytosis 1+ Acanthocytes (Spur) 2+ Sodium 147 H Potassium 4.4 Chloride 119 H Carbon Dioxide 23.0 Anion Gap 5 BUN 28 H Creatinine 2.11 H Estim Creat Clear Calc 41.80 Est GFR (MDRD) Af Amer 41 L Est GFR (MDRD) Non-Af 34 L BUN/Creatinine Ratio 13.3 Glucose 304 H Lactic Acid 2.2 H* Calcium 8.4 L Total Bilirubin 0.20 Direct Bilirubin 0.09 AST 33 ALT 39 Alkaline Phosphatase 110 Ammonia 22.0 Total Creatine Kinase 38 L Troponin I High Sens 281 H* Total Protein 7.4 Albumin 2.0 L Globulin 5.4 H Lipase 15 TSH 4.30 H Urine Color Yellow Urine Clarity Clear Urine pH 6.0 Ur Specific [place] 1.010 Urine Protein 100 H Urine Glucose (UA) 1000 H Urine Ketones Negative Urine Occult Blood 150 H Urine Nitrite Negative Urine Bilirubin Negative Urine Urobilinogen Normal Ur Leukocyte Esterase Negative Urine RBC 0-5 SEEN Urine WBC 0-5 SEEN Ur Squamous Epith Cells 0 SEEN Urine Bacteria 0 SEEN Urine Mucus 0 SEEN Radiography Diagnostic Testing: Clinical Impression(s) from Imaging Studies Brain CT 01/06/24 13:38 IMPRESSION: Chronic involutional changes of the brain. Electronically Signed: Prakash Flowers MD at 14:09 EDT , Chest X-Ray 01/06/24 13:55 IMPRESSION: Patchy infiltrate in the right lower lobe as well as in the left upper lobe and left lower lobes. The previously seen infiltrate in the left lower lobe has improved. There is blunting of the left costophrenic angle. Electronically Signed: Prakash Flowers MD at 14:11 EDT , Discharge Plan Triage Chief Complaint: Mental Status Change ED Provider: Gorge Vance Dx/Rx/DC Orders Prescriptions: No Action acetaminophen [Tylenol] 325 mg tablet 650 mg PO Q4H PRN (Reason: fever or pain) lorazepam 1 mg tablet 1 mg PO BID Patient Comments: PT TAKES 1 TAB TWICE DAILTY ROUTINE, AND THEN 1 TAB EVERY 6 HOURS NEEDED. medroxyprogesterone [Provera] 10 mg tablet 10 mg PO BID furosemide [Lasix] 40 mg tablet 40 mg PO DAILY Hold Instructions: MD Ordered divalproex [Depakote] 250 mg tablet,delayed release (DR/EC) 250 mg PO BID atorvastatin 80 MG tablet 80 mg PO DAILY lorazepam 1 MG tablet 1 mg PO Q6H PRN (Reason: Agitation) Patient Comments: PT TAKES 1 TAB TWICE DAILTY ROUTINE, AND THEN 1 TAB EVERY 6 HOURS NEEDED. haloperidol 5 MG tablet 5 mg PO Q6H PRN (Reason: Agitation) Patient Comments: PT TAKES 2MG THREE TIMES A DAY ROUTINELY, AND 5MG EVERY 6 HOURS NEEDED trazodone 100 MG tablet 100 mg PO QHS levothyroxine 50 MCG tablet 50 mcg PO DAILY cholecalciferol (vitamin D3) 2,000 UNIT capsule 2,000 unit PO DAILY albuterol sulfate 0.63 mg/3 mL solution for nebulization 0.63 mg inhalation TID Patient Comments: PT TAKES THREE TIMES DAILY ROUTINE, THEN EVERY 4 HOURS NEEDED nicotine (polacrilex) 2 mg Lozenge 2 mg BUCCAL Q2H PRN (Reason: smoking alternative) ferrous sulfate 325 mg (65 mg iron) Tablet 325 mg PO DAILY haloperidol 2 mg Tablet 2 mg PO TID Patient Comments: PT TAKES 2MG THREE TIMES A DAY ROUTINELY, AND 5MG EVERY 6 HOURS NEEDED divalproex [Depakote ER] 500 mg tablet extended release 24 hr 500 mg PO BID aspirin [Adult Aspirin Regimen] 81 mg tablet,delayed release (DR/EC) 81 mg PO DAILY glucagon HCl [Glucagon (HCl) Emergency Kit] 1 mg recon soln 1 mg IM Q20M PRN (Reason: hypoglycemia) Rx Instructions: until target blood sugar attained fluconazole [Diflucan] 200 mg tablet 200 mg PO DAILY Patient Comments: Take for 5 days, Started on 01/03/2024 doxycycline hyclate 100 mg capsule 100 mg PO BID Patient Comments: Give for 7 days, Started 01/01/2024 Jardiance 25 mg tablet 25 mg PO DAILY metoprolol tartrate 50 mg tablet 50 mg PO BID sennosides-docusate sodium [Stool Softener-Stimulant Laxat] 8.6-50 mg Tablet 2 tab PO BID Qty: 0 0RF pantoprazole 40 mg Tablet,Delayed Release (Dr/Ec) 40 mg PO DAILY Qty: 0 0RF insulin lispro [Humalog KwikPen Insulin] 100 unit/mL Insulin Pen See Protocol subcut ACHS Qty: 0 0RF Protocol: 4. Sliding Scale Insulin High-Med Dosing Condition: 150-199 mg/dl = 2 units Condition: 200-259 mg/dl = 4 units Condition: 260-324 mg/dl = 6 units Condition: 325-374 mg/dl = 8 units Condition: 375-409 mg/dl = 10 units Condition: 410-449 mg/dl = 11 units Condition: Greater than 449 call physician Protocol Text: - Use for Total Daily Dose of Insulin 56-80 units - Patient who are insulin resistant or septic HIGH MEDIUM DOSING ALGORITHM menthol-zinc oxide [Calmoseptine] 0.44-20.6 % Ointment 1 applic topical BID Qty: 0 0RF Protocol: *Topical Application Instructions APPLICATION INSTRUCTIONS: Apply to affected areas. insulin glargine [Lantus U-100 Insulin] 100 unit/mL solution 18 unit subcut QHS 1 Days Qty: 0 0RF insulin lispro 100 unit/mL cartridge 10 unit subcut TID 1 Days Qty: 0 0RF Rx Instructions: HOLD INSULIN LISPRO IF BS IS <100 amlodipine 5 mg tablet 5 mg PO DAILY Qty: 90 0RF Primary Care Provider: Bernard Hankins Referrals: Bernard Hankins MD [Primary Care Provider] -
[2024-01-06 14:40] LABS: AST(SGOT) 33 U/L (15-37); Alanine Aminotransfer ALT/SGPT 39 U/L (16-61); Alkaline Phosphatase 110 U/L (45-117); Anion Gap 5 (5-15); BUN 28 mg/dL (7-18); BUN/Creat Ratio 13.3 RATIO (10-20); Bilirubin, Direct 0.09 mg/dL (0.00-0.30); CPK Total, Creatine Kinase 38 U/L (39-308); Calcium,Total 8.4 mg/dL (8.5-10.1); Chloride 119 mmol/L (98-107); Creatinine, Serum 2.11 mg/dL (0.70-1.30); EST Glomerular Filtration Rate 34 mL/min (>60); Est Glom Filt Rate - Afr Amer 41 mL/min (>60); Globulin 5.4 g/dL (2.2-4.2); Glucose 304 mg/dL (74-106); Lipase 15 U/L (13-75); Potassium 4.4 mmol/L (3.5-5.1); Protein, Total 7.4 g/dL (6.4-8.2); Sodium Level 147 mmol/L (136-145); Troponin-I HS 281 pg/mL (3.0-78.0)
[2024-01-06 14:41] LABS: Bacteria 0 SEEN /hpf (None Seen); Mucous, Urine 0 SEEN /hpf (<or=2+); Squamous Epithelial Cells - UA 0 SEEN /hpf (0-5)
[2024-01-06 14:45] LABS: Lactic Acid 2.2 mmol/L (0.4-1.9)
--- NOTE | 2024-01-06 14:46 | EKG12_ITS ---
Test Reason : UNRESPONSIVE Blood Pressure : / mmHG Vent. Rate : 057 BPM Atrial Rate : 057 BPM P-R Int : 200 ms QRS Dur : 088 ms QT Int : 520 ms P-R-T Axes : 055 061 036 degrees QTc Int : 506 ms Poor data quality, interpretation may be adversely affected Sinus bradycardia Nonspecific ST and T wave abnormality Prolonged QT Abnormal ECG Confirmed by CATARINA FERMIN MD ([id number]), videotape editor MERRY BLANCO ([id number]) on 01/09/2024 9:35:53 AM Referred By: [email or web address] Confirmed By:CATARINA FERMIN MD
--- NOTE | 2024-01-06 14:46 | ED.RN ---
Placing rtaliff catheter in pt for critical care I&O. Pt had brief moment of asystole. Dr. Vance called to room, no pulse felt for about a minute. Pt then had palpable carotid pulse and began to open eyes and move. Pt has copy of DNR-CCA DNI in chart.
[2024-01-06 14:48] LABS: Color, Urine Yellow (Yellow); Glucose, Dipstick 1000 mg/dl (Normal); Ketone-Dipstick Negative (Negative); Leukocyte Esterase-Dipstick Negative /ul (Negative); Nitrite-Dipstick Negative (Negative); Occult Blood-Urine 150 /ul (Negative); Protein-Dipstick 100 mg/dl (Negative); Urine Bilirubin Dipstick Negative (Negative); Urine Clarity Clear (Clear); Urine Urobilinogen Normal (Normal)
[2024-01-06 14:58] LABS: Red Blood Cells-Urine 0-5 SEEN /hpf (0-5); White Blood Cells 0-5 SEEN /hpf (0-5)
--- NOTE | 2024-01-06 15:01 | ED.RN ---
Update given to pt brother about pt condition. Umang Chung, brother, confused as to pt condition. RN tried to explain condition to family. Family states he is aware of DNR order. RN given plan of care to brother, will call back for further updates.
[2024-01-06] MEDS: Ceftriaxone 1 GM/50 ML BAG IV (15:14)
[2024-01-06] MEDS: Azithromycin 500 MG in Dextrose 5%-Water (250mL Bag) 250 ML 250 MG IV (16:05)
[2024-01-06 16:58] LABS: Free T3 1.4 pg/mL (2.18-3.98); T4 Free Direct 1.08 ng/dL (0.76-1.46)
--- NOTE | 2024-01-06 17:20 | ED.RN ---
Update given to [place] about patient care.
--- NOTE | 2024-01-06 17:21 | ED.RN ---
Update given to brother and guardian about patient care.
--- NOTE | 2024-01-06 17:25 | HP.PCM.HOS_ITS ---
HPI - General General Date of Admission: 01/06/24 Date of Service: 01/06/24 Chief Complaint: mental status change. HPI Narrative ERICK CHUNG, is a 63 M who presents being found lethargic. Patient was too lethargic to provide any history so patient was sent to the emergency room for evaluation and history is obtained through the emergency room physician. Patient was noted to be hypothermic with a temperature of 31 ?C. Patient had chest x-ray that was concerning for pneumonia. Patient did also noted to have some periods of asystole as well but did resolved spontaneously. I did speak with one of the patient's brothers, Umang, who stated that he spoke to the patient recently over the phone and stated that he was sound like he was doing well at that time and was interactive. Is unclear when the patient started becoming more lethargic. Head CT in the emergency room showed no acute process. Chest x-ray showed bilateral infiltrates which was increased from earlier this month. Patient did receive ceftriaxone and azithromycin in the emergency room. Patient was put on heated IV fluids as well as nisha hugger. It was noted the patient had another asystole event by nursing but did not require any treatment. PFSH Medical History JULIETTE (acute kidney injury) Anxiety and depression Atrial fibrillation Chest pain Chronic anemia CKD (chronic kidney disease), stage III Congestive heart failure (CHF) COPD (chronic obstructive pulmonary disease) Diabetes mellitus, type 2 Fe deficiency anemia HLD (hyperlipidemia) HTN (hypertension) Hx of non-ST elevation myocardial infarction (NSTEMI) Hypothyroidism Obesity PVD (peripheral vascular disease) Schizophrenia Sepsis Smoker Tobacco use Home Medications atorvastatin 80 mg tablet 80 mg PO DAILY arterial disease 07/25/19 [History Last Taken 11/24/23] cholecalciferol (vitamin D3) 50 mcg (2,000 unit) capsule 2,000 unit PO DAILY supplement 07/25/19 [History Last Taken 11/25/23] haloperidol 5 mg tablet 5 mg PO Q6H PRN Agitation 07/25/19 [History Last Taken 11/15/23] levothyroxine 50 mcg tablet 50 mcg PO DAILY hypothyroid 07/25/19 [History Last Taken 11/25/23] lorazepam 1 mg tablet 1 mg PO Q6H PRN Agitation 07/25/19 [History Last Taken 11/15/23] trazodone 100 mg tablet 100 mg PO QHS insom 07/25/19 [History Last Taken 11/24/23] albuterol sulfate 0.63 mg/3 mL solution for nebulization 0.63 mg inhalation TID Wheezing 09/23/21 [History Last Taken 11/25/23] nicotine (polacrilex) 2 mg buccal lozenge 2 mg buccal Q2H PRN smoking alternative 09/24/21 [History Last Taken Unknown] acetaminophen 325 mg tablet (Tylenol) 650 mg PO Q4H PRN fever or pain 11/10/21 [History Last Taken Unknown] ferrous sulfate 325 mg (65 mg iron) tablet 325 mg PO DAILY iron 07/21/22 [History Last Taken 11/25/23] haloperidol 2 mg tablet 2 mg PO TID agitation 07/21/22 [History Last Taken 11/25/23] divalproex 250 mg tablet,delayed release (Depakote) 250 mg PO BID paranoid schizophrenia 08/11/22 [History Last Taken 11/24/23] furosemide 40 mg tablet (Lasix) 40 mg PO DAILY chf 08/11/22 [History Last Taken 11/24/23] amlodipine 5 mg tablet 5 mg PO DAILY #90 tabs 08/30/22 [Rx Last Taken 11/25/23] divalproex 500 mg tablet,extended release 24 hr (Depakote ER) 500 mg PO BID paranoid schizopreh 07/20/23 [History Last Taken 11/25/23] lorazepam 1 mg tablet 1 mg PO BID anxiety 07/20/23 [History Last Taken 11/25/23] medroxyprogesterone 10 mg tablet (Provera) 10 mg PO BID sexual aggression 07/20/23 [History Last Taken 11/25/23] aspirin 81 mg tablet,delayed release (Adult Aspirin Regimen) 81 mg PO DAILY PVD 11/19/23 [History Last Taken 11/25/23] glucagon HCl 1 mg solution for injection (Glucagon (HCl) Emergency Kit) 1 mg IM Q20M PRN hypoglycemia 11/19/23 [History Last Taken Unknown] insulin glargine 100 unit/mL subcutaneous solution (Lantus U-100 Insulin) 18 unit (0.18 mL) subcut QHS diabetes 1 day #0 mL 12/20/23 [Rx Last Taken 11/24/23] insulin lispro 100 unit/mL subcutaneous cartridge 10 unit (0.1 mL) subcut TID hyperglycemia 1 day #0 mL 12/20/23 [Rx Last Taken 11/24/23] insulin lispro 100 unit/mL subcutaneous pen (Humalog KwikPen (U-100) Insulin) See Protocol subcut ACHS #0 mL 12/20/23 [Rx Last Taken Unknown] menthol 0.44 %-zinc oxide 20.6 % topical ointment (Calmoseptine) 1 applic topical BID #0 grams 12/20/23 [Rx Last Taken Unknown] pantoprazole 40 mg tablet,delayed release 40 mg PO DAILY #0 tabs 12/20/23 [Rx Last Taken Unknown] sennosides 8.6 mg-docusate sodium 50 mg tablet (Stool Softener-Stimulant Laxative) 2 tab PO BID #0 tabs 12/20/23 [Rx Last Taken Unknown] doxycycline hyclate 100 mg capsule 100 mg PO BID 01/06/24 [History Last Taken Unknown] empagliflozin 25 mg tablet (Jardiance) 25 mg PO DAILY 01/06/24 [History Last Taken Unknown] fluconazole 200 mg tablet (Diflucan) 200 mg PO DAILY 01/06/24 [History Last Taken Unknown] metoprolol tartrate 50 mg tablet 50 mg PO BID 01/06/24 [History Last Taken Unknown] Allergy/AdvReac Type Severity Reaction Status Date / Time No Known Allergies Allergy Verified 01/06/24 13:35 Family History Mother No family history of disorders Father No family history of disorders Other Hypertension Surgical History No history of previous surgery No history of previous surgery Social History household members: other details: [facility] housing: other details: [facility]. Smoking Status: Current every day smoker tobacco type: cigarettes alcohol intake: never substance use type: does not use ROS ROS Narrative Unable to obtain as the patient is too lethargic. Vital Signs Vital Signs Vital Signs: 01/06/24 13:09 01/06/24 13:19 01/06/24 14:19 Temperature 31.0 C L 31.0 C L 31.2 C L Temperature Source Rectal Rectal Rectal Pulse Rate 57 L 60 50 L Respiratory Rate 13 22 H 12 Respiratory Pattern Blood Pressure 145/88 H 145/88 H 119/66 Blood Pressure Mean 107 107 83 Pulse Ox 95 95 95 Oxygen Delivery Method Room Air Room Air Room Air Oxygen Flow Rate (L/min) 01/06/24 15:00 01/06/24 15:44 01/06/24 16:00 Temperature 31.0 C L Temperature Source Rectal Pulse Rate 57 L 57 L Respiratory Rate 20 H 15 Respiratory Pattern Normal Blood Pressure 127/69 H 123/61 H Blood Pressure Mean 88 81 Pulse Ox 98 97 Oxygen Delivery Method Nasal Cannula Nasal Cannula Oxygen Flow Rate (L/min) 4 4 01/06/24 17:00 01/06/24 17:06 Temperature 32.0 C L 32.0 C L Temperature Source Rectal Pulse Rate 59 L 60 Respiratory Rate 29 H 35 H Respiratory Pattern Blood Pressure 117/61 113/65 Blood Pressure Mean 79 81 Pulse Ox 98 96 Oxygen Delivery Method Nasal Cannula Oxygen Flow Rate (L/min) 4 Weight Weight: 102.2 kg Body Mass Index (BMI) 32.3 Physical Exam Const Constitutional Narrative: Lethargic but able to follow some simple commands such as opening his mouth and opening his eyes. Does speak but is slurred. HEENT normocephalic and head/scalp atraumatic Eyes PERRL Eyes Narrative: No icterus. Resp Resp Narrative: Coarse breath sounds bilaterally Cardio regular rate, regular rhythm, S1 normal heart sound and S2 normal heart sound GI normal to inspection, nondistended, normoactive bowel sounds, soft to palpation, non-tender and non-distended Extremity Extremity Narrative: Edema bilateral lower extremities. Skin Skin Narrative: Patient does have some venous stasis wounds on his legs bilaterally. Left lower extremity has an eschar anteriorly. Neuro moves all extremities Results Lab / Micro Data Attestation: I reviewed the patient's lab results. 01/06/24 13:29 01/06/24 13:29 Labs: Laboratory Results - last 24 hr 01/06/24 13:29: WBC 12.8 H, RBC 2.92 L, Hgb 8.1 L, Hct 27.3 L, MCV 93.5, MCH 27.7, MCHC 29.7 L, RDW Std Deviation 67.6 H, RDW Coeff of Saman 20.1 H, Plt Count 221, MPV 11.5, Immature Gran % (Auto) 1.600 H, Neut % (Auto) 78.2 H, Lymph % (Auto) 13.4 L, [place] % (Auto) 4.5, Eos % (Auto) 1.9, Baso % (Auto) 0.4, Absolute Neuts (auto) 10.0 H, Absolute Lymphs (auto) 1.71, Nucleated RBC % 0.5, Differential Comment SCANNED, Anisocytosis 2+, Microcytosis 1+, Macrocytosis 1+, Acanthocytes (Spur) 2+, Sodium 147 H, Potassium 4.4, Chloride 119 H, Carbon Dioxide 23.0, Anion Gap 5, BUN 28 H, Creatinine 2.11 H, Estim Creat Clear Calc 41.80, Est GFR (MDRD) Af Amer 41 L, Est GFR (MDRD) Non-Af 34 L, BUN/Creatinine Ratio 13.3, Glucose 304 H, Lactic Acid 2.2 H*, Calcium 8.4 L, Total Bilirubin 0.20, Direct Bilirubin 0.09, AST 33, ALT 39, Alkaline Phosphatase 110, Total Creatine Kinase 38 L, Troponin I High Sens 281 H*, Total Protein 7.4, Albumin 2.0 L, Globulin 5.4 H, Lipase 15, TSH 4.30 H, Free T4 1.08, Free T3 pg/dL 1.4 L 01/06/24 14:35: Urine Color Yellow, Urine Clarity Clear, Urine pH 6.0, Ur Specific Mcgregor 1.010, Urine Protein 100 H, Urine Glucose (UA) 1000 H, Urine Ketones Negative, Urine Occult Blood 150 H, Urine Nitrite Negative, Urine Bilirubin Negative, Urine Urobilinogen Normal, Ur Leukocyte Esterase Negative, Urine RBC 0-5 SEEN, Urine WBC 0-5 SEEN, Ur Squamous Epith Cells 0 SEEN, Urine Bacteria 0 SEEN, Urine Mucus 0 SEEN 01/06/24 14:43: Ammonia 22.0 Micro: Microbiology 01/06/24 13:50 Mucosa - Nose SARS-CoV-2, Influenza & RSV (PCR) - Final Rhythm Strip Rhythm Strip: bradycardia Imaging Radiology Impression Brain CT 01/06/24 13:38 IMPRESSION: Chronic involutional changes of the brain. Electronically Signed: Prakash Flowers MD at 14:09 EDT , Chest X-Ray 01/06/24 13:55 IMPRESSION: Patchy infiltrate in the right lower lobe as well as in the left upper lobe and left lower lobes. The previously seen infiltrate in the left lower lobe has improved. There is blunting of the left costophrenic angle. Electronically Signed: Prakash Flowers MD at 14:11 EDT , Assessment & Plan Assessment/Plan (1) Sepsis: (2) Pneumonia: (3) Bradycardia: PLAN: Plan Sepsis * Present on admission * qSOFA 2 with encephalopathy and respiratory rate greater than equal to 22. SIRS 3/4 with Temp 31, RR 22, WBC 12.8 * Secondary to pneumonia * Concern for worsening condition and respiratory status with additional IV fluids and potential worsening hypothermia as well. Patient is currently normotensive so we will hold off any additional IV fluids at present. * Follow-up blood cultures. Urinalysis unremarkable. Pneumonia * Suspect gram-negative given recent hospitalization * Patient received ceftriaxone and azithromycin in the emergency room. Patient will be on broad-spectrum antibiotics with Vanco and pip-tazo * Check sputum culture, strep and Legionella antigens negative * Did review imaging from previous send his chest x-ray does look worse than it did on the eighth. Bradycardia * It was reported the patient had asystole in the emergency room. But reviewing the telemetry strips it appears the patient had very severe bradycardia down to the 30s. There was an area where he was noted to be asystole but there is a lot of artifact so unable to evaluate the actual underlying rhythm was though there did appear to be some low voltage present during what may have been considered asystole. * Patient does take metoprolol tartrate 50 mg twice daily. That will be held for now. * Will recheck echocardiogram to see if there has been any new changes. Patient did have an echocardiogram on November 27 that showed an EF of 55%. With the changes of the patient's overall worsening condition, elevated troponins and bradycardia, I feel that it is prudent to recheck echocardiogram * As needed atropine * Cardiology consultation * Cannot rule out the need for permanent pacemaker * Will check a D-dimer. If positive for age, would initiate anticoagulation with a heparin drip. Patient may benefit from getting a VQ scan but would hold off on a CT angiogram given his chronic kidney disease. Encephalopathy * Probably multifactorial with metabolic and toxic components but I suspect mostly metabolic due to the underlying sepsis, hypothermia and pneumonia * Will hold off on his psychiatric medications, which include lorazepam, haloperidol, divalproex and trazodone * Treat the underlying infection and sepsis * Head CT was negative. No additional imaging at this time. * Patient did have slightly elevated TSH. Will check free T4. * Check valproic acid level Chronic conditions * Atrial fibrillation: Holding off on metoprolol given the bradycardia * Anemia: Appears to be stable at this time. * COPD peers to be stable at this time. * Diabetes mellitus type 2: Hold empagliflozin for now. Continue with his glargine and sliding scale insulin. * Hyperlipidemia: Continue with statin. * Schizophrenia: Holding meds as mentioned above. VTE prophylaxis with enoxaparin CODE STATUS: Per previous documentation, patient is DNR Comfort Care arrest no intubation. Did review this with the patient's brother, Umang Chung. He had verify that the patient is DNR Comfort Care arrest no intubation. He did express frustration as the patient apparently was doing relatively well up until just recently and then has had a dramatic turn. He ultimately would like for the patient to go down to where he lives which is around [facility]. Did inform him that we can have case management to look into that when the patient's condition permits. Charges/Coding Visit Charges Inpatient E&M: 18812 Init Hosp L3
--- NOTE | 2024-01-06 17:44 | ECHOLC_ITS ---
Procedure This was a limited 2D transthoracic echocardiogram. The study was technically difficult. DUE TO PT pulling on probe and moving my hand away from his chest when tryig to image. Contrast injection was performed. Exam performed portable in ICU/CCU. Left Ventricle Normal LV size. The estimated ejection fraction is 55 %. Diastolic function is indeterminate. No regional wall motion abnormalities noted. Right Ventricle Normal RV size. Normal systolic function. Atria The left and right atria are normal. No doppler evidence for ASD. Mitral Valve There is no mitral valve stenosis. No mitral valve insufficiency. Tricuspid Valve There is no tricuspid stenosis. Unable to estimate RV systolic pressure due to inadequate jet, pulmonary artery pressure probably normal. Aortic Valve The aortic valve is not well visualized. Pulmonic Valve The pulmonic valve is not well visualized. Great Vessels The aortic root is not well visualized. Pericardium/Pleural No pericardial effusion. Medication Diluted definity 3.0ml given slow IV push to enhance endocardial definition. MMode/2D Measurements & Calculations LVIDd: 5.1 cm IVSd: 1.1 cm Ao root diam: 3.1 cm LVIDs: 3.2 cm LVPWd: 1.00 cm LA dimension: 4.3 cm FS: 37.5 % LVAd ap4: 29.1 cm2 SV(MOD-sp4): 54.5 ml SV(sp4-el): 55.6 ml LVLd ap4: 8.2 cm EDV(MOD-sp4): 84.8 ml EDV(sp4-el): 87.3 ml LVAs ap4: 15.8 cm2 LVLs ap4: 6.7 cm ESV(MOD-sp4): 30.4 ml ESV(sp4-el): 31.7 ml EF(MOD-sp4): 64.2 % EF(sp4-el): 63.7 % TAPSE: 2.2 cm Time Measurements MV dec time: 0.18 sec Doppler Measurements & Calculations MV E max micah: 126.3 cm/sec Lat Peak E' Micah: 7.9 cm/sec Med Peak E' Micah: 6.0 cm/sec MV A max micah: 91.9 cm/sec E/E' lat: 16.1 E/E' med: 20.9 MV E/A: 1.4 MV V2 max: 111.2 cm/sec MV P1/2t max micah: 110.2 cm/sec Ao V2 max: 118.6 cm/sec MV max P.9 mmHg MV P1/2t: 50.6 msec Ao max P.6 mmHg MV V2 mean: 59.4 cm/sec MV dec slope: 637.3 cm/sec2 Ao V2 mean: 75.3 cm/sec MV mean P.7 mmHg Ao mean P.5 mmHg MV V2 VTI: 28.3 cm MVA(P1/2t): 4.3 cm2 Ao V2 VTI: 29.6 cm AV (velocity ratio): 0.68 LV V1 max: 76.0 cm/sec LV V1 max P.3 mmHg LV V1 mean P.92 mmHg LV V1 mean: 44.2 cm/sec LV V1 VTI: 20.3 cm ECHO/Echo Limited w/Contrast Interpretation Summary The estimated ejection fraction is 55 %. Diastolic function is indeterminate. Ordering Physician: Brendan Aiken Referring Physician: Bernard Hankins Performed By: Neeta Casillas, JOSSUE, RVT
[2024-01-06 18:14] LABS: Reflex Lactate? Y
[2024-01-06] MEDS: Piperacil/Tazobactam 3.375 GM in 0.9% Normal Saline (50mL MB+) 50 ML IV ×2 (18:16→23:53)
[2024-01-06] MEDS: 0.9% Normal Saline (1000mL) 1,000 ML 150 ML IV (18:16)
[2024-01-06 18:18] LABS: D-Dimer Quantitative (DVT/PE) 1.13 FEU/ug/m (0.27-0.49)
[2024-01-06] MEDS: Vancomycin HCl 2,000 MG in 0.9% Normal Saline (500mL Bag) 500 ML 250 MG IV (18:58)
[2024-01-06 19:03] LABS: Troponin-I HS 286 pg/mL (3.0-78.0)
[2024-01-06 19:12] LABS: Lactic Acid 1.5 mmol/L (0.4-1.9)
[2024-01-06 19:18] LABS: Valproic Acid (Depakene) Level 38 ug/mL (50-100)
--- NOTE | 2024-01-06 20:13 | PCM.RX.CS ---
Consult Antibiotic Management Pharmacy has been consulted to manage selected antibiotic: Vancomycin Type of Intervention Type of Consult: New start Suspected Infection Suspected Infection: Sepsis and Pneumonia Prior Doses of Antibiotics Prior Doses of Antibiotics Received/Current Regimen: Given loading dose of 2000mg iv x 1 01.06.24 @5638. Labs Labs: Sodium 147 mmol/L (136-145) H 01/06/24 13:29 Potassium 4.4 mmol/L (3.5-5.1) 01/06/24 13:29 Chloride 119 mmol/L (98-107) H 01/06/24 13:29 Carbon Dioxide 23.0 mmol/L (21.0-32.0) 01/06/24 13:29 Anion Gap 5 (5-15) 01/06/24 13:29 BUN 28 mg/dL (7-18) H 01/06/24 13:29 Creatinine 2.11 mg/dL (0.70-1.30) H 01/06/24 13:29 Est GFR (MDRD) Af Amer 41 mL/min (>60) L 01/06/24 13:29 Est GFR (MDRD) Non-Af 34 mL/min (>60) L 01/06/24 13:29 BUN/Creatinine Ratio 13.3 RATIO (10-20) 01/06/24 13:29 Glucose 304 mg/dL (74-106) H 01/06/24 13:29 Microbiology Microbiology: Microbiology 01/06/24 14:35 Urine Catheter - Browning Legionella Antigen - Final 01/06/24 14:35 Urine Catheter - Browning Streptococcus pneumoniae Antigen (M - Final 01/06/24 13:50 Mucosa - Nose SARS-CoV-2, Influenza & RSV (PCR) - Final Dosing Weight Weight used for dosin.9 kg Estimated Creatinine Clearance Estimated Creatinine Clearance: 42ml/min Goal Trough Goal Trough: 15-20 mcg/mL Pharmacy Plan for Drug Dosing Pharmacy Plan for Drug Dosing: Recommend a dose of 750mg iv q12h per protocol beginning 12hrs after 2000mg loading dose with a trough before 4th total dose. Pharmacy Service will continue to monitor and adjust dosing as required. Follow-Up Labs Follow-Up Labs: Trough: Vancomycin (01.08.24 @0630)
[2024-01-06] MEDS: Nystatin Powder 15gm Bottle 1 APPLIC TOPICAL (20:30)
[2024-01-06] MEDS: Menthol/Lanolin/Calamine/Znox 113 GM Tube 1 APPLIC TOPICAL (20:30)
[2024-01-06 20:56] LABS: Troponin-I HS 256 pg/mL (3.0-78.0)
[2024-01-06] MEDS: 0.9% Saline Lock 10 ML Syringe IV (21:35)
[2024-01-06] MEDS: Atropine Sulfate 1 MG/10 ML Syringe IV (21:35)
[2024-01-06] MEDS: Valproate Sodium 500 MG in Dextrose 5%-Water (50mL Bag) 50 ML 50 MG IV (21:37)
--- NOTE | 2024-01-06 21:40 | NURSING ---
Heart rate dropped to the low 20s with a 30 sec pause, PRN atropine given.
[2024-01-06] MEDS: Insulin Glargine-YFGN 100 UNIT/ML Pen 18 UNIT SC (21:41)
--- NOTE | 2024-01-06 21:47 | NURSING ---
Bilateral soft wrist restraints applied to pt for line safety. Pt continuously pulling at pulse ox cords, IVs, and his ratliff; unable to be redirected at this time.
[2024-01-06 22:00] LABS: Bedside Glucose 323 mg/dL (74-106)
[2024-01-07] VITALS (14 sets, daily range): BP systolic 91–147; BP diastolic 30–96; PULSE 46–70; RESP 20–37; TEMP 33.7–34.2; O2SAT 89–98; BMI 32.4
[2024-01-07 00:43] LABS: Troponin-I HS 281 pg/mL (3.0-78.0)
[2024-01-07] MEDS: Atropine Sulfate 1 MG/10 ML Syringe IV ×2 (04:38→12:22)
[2024-01-07] MEDS: 0.9% Saline Lock 10 ML Syringe IV ×2 (04:38→07:55)
[2024-01-07 04:43] LABS: Absolute Lymphocyte Count 0.75 X10^3/uL (0.83-4.51); Absolute Neutrophil Count 14.7 X10^3/uL (2.0-7.7); Basophil# 0.03 X10^3/uL; Basophil% 0.2 % (0-1); Eosinophil# 0.16 X10^3/uL; Hematocrit 27.2 % (40-54); Hemoglobin 8.1 g/dL (13.0-16.5); Lymphocyte # 0.75 X10^3/ul (0.83-4.51); Lymphocyte % 4.5 % (19-41); Mean Corp Hgb Conc 29.8 g/dL (32-36); Mean Corpuscular Hgb 27.9 pg (27.0-32.0); Mean Corpuscular Volume 93.8 fL (80-94); Mean Platelet Vol. 11.2 fl (6.2-12.0); Monocyte# 0.64 X10^3/uL; Monocyte% 3.9 % (0-10); NRBC Flagged by Analyzer 0.5 % (0-5); Neutrophil # 14.73 X10^3/uL (2.7-7.7); Neutrophil % 89.3 % (47-70); POSITIVE MORPHOLOGY YES; Platelet Count 208 K/mm3 (150-450); RBC Distribution Width CV 20.2 % (11.6-14.6); RBC Distribution Width SD 65.9 fl (35.1-43.9); White Blood Count 16.5 K/mm3 (4.4-11.0)
--- NOTE | 2024-01-07 04:51 | NURSING ---
Pt's heart rate again dropped <40 with significant pauses. Due to sustained bradycardia, x1 atropine IV given.
[2024-01-07 04:59] LABS: ALB/GLOB Ratio 0.4 RATIO (0.9-2.4); AST(SGOT) 33 U/L (15-37); Alanine Aminotransfer ALT/SGPT 42 U/L (16-61); Albumin, Serum 1.8 g/dL (3.2-5.0); Alkaline Phosphatase 100 U/L (45-117); Anion Gap 2 (5-15); BUN 27 mg/dL (7-18); BUN/Creat Ratio 14.5 RATIO (10-20); Calcium,Total 7.9 mg/dL (8.5-10.1); Chloride 124 mmol/L (98-107); Creatinine, Serum 1.86 mg/dL (0.70-1.30); EST Glomerular Filtration Rate 39 mL/min (>60); Est Glom Filt Rate - Afr Amer 47 mL/min (>60); Estimated Creatinine Clearance 47.49 ml/min; Globulin 4.7 g/dL (2.2-4.2); Glucose 253 mg/dL (74-106); Potassium 4.3 mmol/L (3.5-5.1); Protein, Total 6.5 g/dL (6.4-8.2); Sodium Level 150 mmol/L (136-145)
[2024-01-07] MEDS: Piperacil/Tazobactam 3.375 GM in 0.9% Normal Saline (50mL MB+) 50 ML IV (05:26)
[2024-01-07 05:43] LABS: Differential Indicated SCAN CRITERIA MET
[2024-01-07 05:44] LABS: Anisocytosis 3+; Differential Comment SCANNED; Platelet Estimate ADEQUATE (ADEQ)
[2024-01-07 05:46] LABS: Basophilic Stippling 1+; Bite Cell 2+; Hypochromasia RARE; Ovalocyte 1+; Target Cells 1+
[2024-01-07 05:47] LABS: Acanthocytes 2+; Macrocytosis 1+; Microcytosis 1+; Schistocytes 1+; Stomatocyte 1+
[2024-01-07] MEDS: Vancomycin HCl 750 MG in 0.9% Normal Saline (250mL Bag) 250 ML 250 MG IV (06:32)
--- NOTE | 2024-01-07 07:19 | PN.HOSP_ITS ---
Reason for Visit Reason for Visit: Diagnoses Sepsis, unspecified organism (01/06/24) Pneumonia, unspecified organism (01/06/24) Bradycardia, unspecified (01/06/24) Subjective Subjective Earlier patient was more interactive. Still following some commands. He did have an asytolic episode that required atropine. I was later notified that he did not have a pulse, apneic and was in unstable VT. Objective Data Objective Data Vital Signs: Vital Signs Temp Pulse Resp BP Pulse Ox O2 Del Method O2 Flow Rate 33.7 C L 68 37 H 99/64 93 Nasal Cannula 2 01/07/24 04:00 01/07/24 06:00 01/07/24 06:00 01/07/24 06:00 01/07/24 06:00 01/07/24 06:00 01/07/24 06:00 Oxygen Flow Rate (L/min) 2 Oxygen Delivery Method Nasal Cannula Weight: 102.5 kg Body Mass Index (BMI) 32.4 Intake & Output: Intake and Output for Last 24 Hours 01/05/24 01/06/24 01/07/24 23:59 23:59 23:59 Intake Total 1712.5 / 1712.5 245 / 245 Output Total 350 / 350 400 / 400 Balance 1362.5 / 1362.5 -155 / -155 Lab / Micro Data 01/07/24 04:28 01/07/24 04:28 Labs: Laboratory Results - last 24 hr 01/06/24 13:20: D-Dimer Quant (PE/DVT) 1.13 H* 01/06/24 13:29: WBC 12.8 H, RBC 2.92 L, Hgb 8.1 L, Hct 27.3 L, MCV 93.5, MCH 27.7, MCHC 29.7 L, RDW Std Deviation 67.6 H, RDW Coeff of Saman 20.1 H, Plt Count 221, MPV 11.5, Immature Gran % (Auto) 1.600 H, Neut % (Auto) 78.2 H, Lymph % (Auto) 13.4 L, Hardeman % (Auto) 4.5, Eos % (Auto) 1.9, Baso % (Auto) 0.4, Absolute Neuts (auto) 10.0 H, Absolute Lymphs (auto) 1.71, Nucleated RBC % 0.5, Differential Comment SCANNED, Anisocytosis 2+, Microcytosis 1+, Macrocytosis 1+, Acanthocytes (Spur) 2+, Sodium 147 H, Potassium 4.4, Chloride 119 H, Carbon Dioxide 23.0, Anion Gap 5, BUN 28 H, Creatinine 2.11 H, Estim Creat Clear Calc 41.80, Est GFR (MDRD) Af Amer 41 L, Est GFR (MDRD) Non-Af 34 L, BUN/Creatinine Ratio 13.3, Glucose 304 H, Lactic Acid 2.2 H*, Calcium 8.4 L, Total Bilirubin 0.20, Direct Bilirubin 0.09, AST 33, ALT 39, Alkaline Phosphatase 110, Total Creatine Kinase 38 L, Troponin I High Sens 281 H*, Total Protein 7.4, Albumin 2.0 L, Globulin 5.4 H, Lipase 15, TSH 4.30 H, Free T4 1.08, Free T3 pg/dL 1.4 L 01/06/24 14:35: Urine Color Yellow, Urine Clarity Clear, Urine pH 6.0, Ur Specific Paoli 1.010, Urine Protein 100 H, Urine Glucose (UA) 1000 H, Urine Ketones Negative, Urine Occult Blood 150 H, Urine Nitrite Negative, Urine Bilirubin Negative, Urine Urobilinogen Normal, Ur Leukocyte Esterase Negative, Urine RBC 0-5 SEEN, Urine WBC 0-5 SEEN, Ur Squamous Epith Cells 0 SEEN, Urine Bacteria 0 SEEN, Urine Mucus 0 SEEN 01/06/24 14:43: Ammonia 22.0 01/06/24 18:30: Lactic Acid 1.5, Troponin I High Sens 286 H*, Valproic Acid 38 L 01/06/24 20:10: Troponin I High Sens 256 H* 01/06/24 21:40: POC Glucose 323 H 01/07/24 00:05: Troponin I High Sens 281 H* 01/07/24 04:28: WBC 16.5 H, RBC 2.90 L, Hgb 8.1 L, Hct 27.2 L, MCV 93.8, MCH 27.9, MCHC 29.8 L, RDW Std Deviation 65.9 H, RDW Coeff of Saman 20.2 H, Plt Count 208, MPV 11.2, Immature Gran % (Auto) 1.100 H, Neut % (Auto) 89.3 H, Lymph % (Auto) 4.5 L, Hardeman % (Auto) 3.9, Eos % (Auto) 1.0, Baso % (Auto) 0.2, Absolute Neuts (auto) 14.7 H, Absolute Lymphs (auto) 0.75 L, Nucleated RBC % 0.5, Differential Comment SCANNED, Diff Path Review May foll, Platelet Estimate ADEQUATE, Hypochromasia RARE, Basophilic Stippling 1+, Anisocytosis 3+, Microcytosis 1+, Macrocytosis 1+, Target Cells 1+, Ovalocytes 1+, Stomatocytes 1+, Bite Cells 2+, Acanthocytes (Spur) 2+, Schistocytes 1+, Sodium 150 H, Po tassium 4.3, Chloride 124 H, Carbon Dioxide 24.0, Anion Gap 2 L, BUN 27 H, Creatinine 1.86 H, Estim Creat Clear Calc 47.49, Est GFR (MDRD) Af Amer 47 L, Est GFR (MDRD) Non-Af 39 L, BUN/Creatinine Ratio 14.5, Glucose 253 H, Calcium 7.9 L, Total Bilirubin 0.30, AST 33, ALT 42, Alkaline Phosphatase 100, Total Protein 6.5, Albumin 1.8 L, Globulin 4.7 H, Albumin/Globulin Ratio 0.4 L Micro: Microbiology 01/06/24 14:35 Urine Catheter - Browning Legionella Antigen - Final 01/06/24 14:35 Urine Catheter - Browning Streptococcus pneumoniae Antigen (M - Final 01/06/24 13:50 Mucosa - Nose SARS-CoV-2, Influenza & RSV (PCR) - Final Radiography Diagnostic Testing: Radiology Impression Brain CT 01/06/24 13:38 IMPRESSION: Chronic involutional changes of the brain. Electronically Signed: Prakash Flowers MD at 14:09 EDT , Chest X-Ray 01/06/24 13:55 IMPRESSION: Patchy infiltrate in the right lower lobe as well as in the left upper lobe and left lower lobes. The previously seen infiltrate in the left lower lobe has improved. There is blunting of the left costophrenic angle. Electronically Signed: Prakash Flowers MD at 14:11 EDT , Rhythm Strip Rhythm Strip: bradycardia Physical Exam Narrative Earlier exam: pt was alert, non toxic. Still hypothermic. HRRR +S1, S2. Lungs with coarse BS bilaterally. Abd soft non-tender, non distended. Extemities with LE sheila.a Assessment & Plan Assessment/Plan (1) Sepsis: (2) Pneumonia: (3) Bradycardia: PLAN: Plan Sepsis * Present on admission * qSOFA 2 with encephalopathy and respiratory rate greater than equal to 22. SIRS 3/4 with Temp 31, RR 22, WBC 12.8 * Secondary to pneumonia * Concern for worsening condition and respiratory status with additional IV fluids and potential worsening hypothermia as well. Patient is currently normotensive so we will hold off any additional IV fluids at present. * Follow-up blood cultures. Urinalysis unremarkable. Pneumonia * Suspect gram-negative given recent hospitalization * Patient received ceftriaxone and azithromycin in the emergency room. Patient will be on broad-spectrum antibiotics with Vanco and pip-tazo * Check sputum culture, strep and Legionella antigens negative * Did review imaging from previous send his chest x-ray does look worse than it did on the eighth. Bradycardia * Improving * It was reported the patient had asystole in the emergency room. But reviewing the telemetry strips it appears the patient had very severe bradycardia down to the 30s. There was an area where he was noted to be asystole but there is a lot of artifact so unable to evaluate the actual underlying rhythm was though there did appear to be some low voltage present during what may have been considered asystole. * Patient does take metoprolol tartrate 50 mg twice daily. That will be held for now. * Will recheck echocardiogram to see if there has been any new changes. Patient did have an echocardiogram on November 27 that showed an EF of 55%. With the changes of the patient's overall worsening condition, elevated troponins and bradycardia, I feel that it is prudent to recheck echocardiogram * As needed atropine * Cardiology consultation * Cannot rule out the need for permanent pacemaker Elevated D-dimer * Etiology: sepsis, DIC, PE, v other * check Duplex, INR, fibrinogen. * cannot rule out need for anticoagulation Elevated troponins * chronically elevated * check echocardiogram * cardiology consult * anticoagulation w heparin gtt. Encephalopathy * Probably multifactorial with metabolic and toxic components but I suspect mostly metabolic due to the underlying sepsis, hypothermia and pneumonia * Will hold off on his psychiatric medications, which include lorazepam, haloperidol, divalproex and trazodone * Treat the underlying infection and sepsis * Head CT was negative. No additional imaging at this time. * Patient did have slightly elevated TSH, however, free T4 WNL. Theretofore, this is not myxedema coma. * valproic acid level low at 38, so not toxic. Hypothermia * initial temp 31, up slightly to 34 * I suspect 2/2 sepsis * has received warmed fluids and nisha-hugger Chronic conditions * Atrial fibrillation: Holding off on metoprolol given the bradycardia * Anemia: Appears to be stable at this time. * COPD peers to be stable at this time. * Diabetes mellitus type 2: Hold empagliflozin for now. Continue with his glargine and sliding scale insulin. * Hyperlipidemia: Continue with statin. * Schizophrenia: Holding meds as mentioned above. VTE prophylaxis no indicated as pt is anticoagulated. CODE STATUS: Per previous documentation, patient is DNR Comfort Care arrest no intubation. Did review this with the patient's brother, Umang Chung. He had verify that the patient is DNR Comfort Care arrest no intubation. He did express frustration as the patient apparently was doing relatively well up until just recently and then has had a dramatic turn. He ultimately would like for the patient to go down to where he lives which is around [facility]. Did inform him that we can have case management to look into that when the patient's condition permits.
[2024-01-07] MEDS: Insulin Lispro 100 UNIT/ML INSULN.PEN SC ×2 (08:01→11:34)
[2024-01-07] MEDS: Menthol/Lanolin/Calamine/Znox 113 GM Tube 1 APPLIC TOPICAL (08:31)
[2024-01-07] MEDS: Nystatin Powder 15gm Bottle 1 APPLIC TOPICAL (08:31)
[2024-01-07 08:37] LABS: International Normalized Ratio 1.3; Prothrombin Time (Protime)PT. 16.2 SECONDS (11.7-14.9)
[2024-01-07 08:39] LABS: Fibrinogen 390 mg/dl (203-444); Partial Thromboplast Time 55.6 Seconds (24.1-36.2)
[2024-01-07 08:46] LABS: Bedside Glucose 207 mg/dL (74-106)
--- NOTE | 2024-01-07 10:12 | CASEMGMT ---
Social Work [place] [facility] Pt's brother Umang Chung is pt's guardian. Pt will likely need a new level of care prior to returning [place] [facility]. SW will continue to follow. EV Portillo
[2024-01-07] MEDS: Enoxaparin 40 MG/0.4 ML Syringe SC (10:38)
[2024-01-07] MEDS: Valproate Sodium 500 MG in Dextrose 5%-Water (50mL Bag) 50 ML 50 MG IV (10:38)
--- NOTE | 2024-01-07 13:22 | NURSING ---
Call received from [facility] in [place] in regards to pt. Informed pt not yet released from [employer], will contact when body released. Contact number [phone].
--- NOTE | 2024-01-07 13:37 | EXP.PCM_ITS ---
Preliminary Cause of Preliminary Cause of Preliminary Cause of : Sepsis. Pneumonia. Date of Admission: 01/06/24 Date of : 01/07/24 (1229) Principle Diagnosis Problem List: Active and Suspected Problems (Updated 01/06/24 @ 17:[address] Brendan Aiken, DO) Bradycardia (Acute) Sepsis (Acute) Pneumonia (Acute) Hospital Course Patient presents on the after being noted lethargic at his correction. In the emergency room, patient was noted to be hypothermic with a temperature of 31 ?C. Chest x-ray was concerning for pneumonia. Patient had periods of pronounced bradycardia while he was still in the emergency room. Patient was diagnosed with sepsis presumably due to pneumonia started on antibiotics with ceftriaxone and azithromycin in the emergency room and then transition over to vancomycin and pip-tazo on the floor. Heart rates remain variable and on the floor he did have an asystolic episode that did require atropine. Patient mentally was confused but was more interactive overall. Patient did have an elevated D-dimer but did have a normal INR and fibrinogen level. So did not seem to be consistent with DIC. D-dimer may have been elevated due to the underlying infection and sepsis. On the , patient was evaluated and was more alert and move around following some simple commands. It was noted shortly afterwards, the patient stopped breathing and had no further pulse and his rhythm appeared to be unstable ventricular tachycardia. Had to had been established the patient's CODE STATUS was DNR Comfort Care arrest no intubation so CPR was not initiated. Patient then developed prolonged asystole then back into unstable VT and was pronounced at 1229. Visit Charges Inpatient E&M: 89356 Disch Hosp >30min
--- NOTE | 2024-01-07 13:43 | NURSING ---
1215-pt heart rate dropped to 20's then would rebound to 30-40's. Pt moving appropriately. RN x 2 assessed patient 1222-pt heart rate remaining in 20's, 1mg atropine given. 1223- agonal respirations, heart rate continuing to maintain in 20's. Dr. Aiken called. 1227-Dr. Aiken arrived. 1229- Time of announced for [address] Aiken. 1321-Per [facility], total fluid in past hour prior to time of , Normal saline 150cc, Depacon, and atropine 1mg.
[2024-01-07 18:58] LABS: Bedside Glucose 198 mg/dL (74-106)
[2024-01-10 15:09] LABS: Pathologist Review Reviewed
== END 2024-01-07 15:43 | DRG 871 ==
LOC: ED 15:40 → ICU 16:53
PROVIDERS: Emergency Provider Emergency Medicine; PCP Family Medicine
DX: A41.50 Gram-negative sepsis, unspecified (principal); J15.69 Pneumonia due to other Gram-negative bacteria; G92.8 Other toxic encephalopathy; J44.0 Chronic obstructive pulmonary disease with (acute) lower respiratory infection; I47.29 Other ventricular tachycardia; I46.2 Cardiac arrest due to underlying cardiac condition; D63.1 Anemia in chronic kidney disease; E11.22 Type 2 diabetes mellitus with diabetic chronic kidney disease; E11.51 Type 2 diabetes mellitus with diabetic peripheral angiopathy without gangrene; I48.91 Unspecified atrial fibrillation; N18.30 Chronic kidney disease, stage 3 unspecified; F20.9 Schizophrenia, unspecified; Z79.4 Long term (current) use of insulin; I12.9 Hypertensive chronic kidney disease with stage 1 through stage 4 chronic kidney disease, or unspecified chronic kidney disease; E78.5 Hyperlipidemia, unspecified; F17.210 Nicotine dependence, cigarettes, uncomplicated; I25.2 Old myocardial infarction; R68.0 Hypothermia, not associated with low environmental temperature; R77.8 Other specified abnormalities of plasma proteins; Z66 Do not resuscitate; Z79.51 Long term (current) use of inhaled steroids; Z79.82 Long term (current) use of aspirin; Z79.899 Other long term (current) drug therapy
CPT/HCPCS: 51702; 70450; 71045; 80048; 80053; 80076; 80164; 81001; 82140; 82550; 82962; 83605; 83690; 84439; 84443; 84481; 84484; 85025; 85379; 85384; 85610; 85730; 87040; 87449; 87631; 93005; 93308; 99285; J7030; J7040; J7050; Q9957; A4216; C8924